=== PATIENT | female | born 1950 | race Caucasian/White ===

== ENCOUNTER 2018-08-26 08:43 | Inpatient (IN) | payer OTHER, SELFPAY ==
[2018-08-26] VITALS (8 sets, daily range): BP systolic 130–193; BP diastolic 69–82; PULSE 68–79; RESP 16–20; TEMP 36.4–36.9; O2SAT 94–99; BMI 51.5; BMI 44.9; BMI 45.0
--- NOTE | 2018-08-26 08:58 | RAD_ITS ---
STUDY: X-RAY - LEFT KNEE REASON FOR EXAM: Female, 68 years old. Pain following a fall. TECHNIQUE: 2 view(s) of the knee. COMPARISON: None. FINDINGS: Normal visualized distal femur. Normal visualized proximal tibia and fibula. Normal proximal tibiofibular articulation. Normal medial femorotibial compartment. Normal lateral femorotibial compartment. Normal patellofemoral articulation. The soft tissue structures are unremarkable. RAD/Knee 1 or 2 Views IMPRESSION: Normal x-ray examination of the knee. Electronically Signed: Albert Perkins MD at 10:40 EST Tel [phone], Service support ,
--- NOTE | 2018-08-26 08:58 | RAD_ITS ---
STUDY: X-RAY - LUMBAR SPINE REASON FOR EXAM: Female, 68 years old. Pain following a fall. TECHNIQUE: 3 view(s) of the lumbar spine were obtained. COMPARISON: None FINDINGS: Normal lumbar lordosis. There is no substantial scoliosis. There is a normal alignment of the vertebrae. There is multilevel endplate spondylosis of the lumbar vertebrae. There is multi-level degenerative disc disease with multi-level disc space narrowing. Facet joint osteoarthritis. There is atherosclerotic calcification of the abdominal aorta without a demonstrated aneurysm. Surgical clips are seen in the right upper quadrant most likely secondary to prior cholecystectomy. RAD/Lumbar Spine 2 or 3 Views IMPRESSION: Degenerative changes of the spine, as detailed above. Electronically Signed: Albert Perkins MD at 10:43 EST Tel [phone], Service support ,
--- NOTE | 2018-08-26 08:58 | RAD_ITS ---
STUDY: X-RAY - PELVIS REASON FOR EXAM: Female, 68 years old. Pain following a fall. TECHNIQUE: One view of the pelvis was obtained. COMPARISON: None. FINDINGS: There is a non-specific bowel gas pattern. Normal visualized soft tissue structures. Normal bilateral iliac wings, sacroiliac joints and visualized sacrum. Normal visualized bilateral superior and inferior pubic rami. There are degenerative changes of the pubic symphysis with articular narrowing and sclerosis. Normal ischial tuberosities. Normal visualized right femoral head. Normal right acetabulum. There is mild articular joint space narrowing of the right hip. Normal visualized left femoral head. Normal left acetabulum. There is mild articular joint space narrowing of the left hip. RAD/Pelvis 1 or 2 Views IMPRESSION: Degenerative changes of both hips. No acute fracture is seen. Electronically Signed: Albert Perkins MD at 10:45 EST Tel [phone], Service support ,
--- NOTE | 2018-08-26 08:58 | RAD_ITS ---
STUDY: X-RAY - LEFT ANKLE REASON FOR EXAM: Female, 68 years old. Pain following a fall. TECHNIQUE: 3 view(s) of the ankle. COMPARISON: None. FINDINGS: Nondisplaced fracture of the distal fibula. Normal medial and lateral malleoli. Normal tibiotalar articulation and ankle mortise. Calcaneal spurs. The visualized subtalar, talonavicular, calcaneocuboid and tarsal articulations are normal. There are atherosclerotic calcifications. Soft tissue swelling. RAD/Ankle min 3 Views IMPRESSION: Nondisplaced oblique fracture of the distal fibula. Soft tissue swelling and vascular calcification. Electronically Signed: Albert Perkins MD at 10:37 EST Tel [phone], Service support ,
[2018-08-26] MEDS: Ondansetron 4 MG/2 ML Vial IV (09:45)
[2018-08-26] MEDS: fentaNYL 100 MCG/2 ML Ampul 50 MCG IV ×2 (09:45→12:25)
--- NOTE | 2018-08-26 10:22 | RAD_ITS ---
STUDY: X-RAY - RIGHT KNEE REASON FOR EXAM: Female, 68 years old. Pain following a fall. TECHNIQUE: 3 view(s) of the knee. COMPARISON: None. FINDINGS: Normal visualized distal femur. Normal visualized proximal tibia and fibula. Normal proximal tibiofibular articulation. There is mild degenerative arthrosis of the medial femorotibial compartment. Normal lateral femorotibial compartment. Normal patellofemoral articulation. Small joint effusion. RAD/Knee 1 or 2 Views IMPRESSION: Degenerative arthrosis. Small joint effusion. Electronically Signed: Albert Perkins MD at 10:43 EST Tel [phone], Service support ,
--- NOTE | 2018-08-26 10:23 | RAD_ITS ---
STUDY: X-RAY - RIGHT ANKLE REASON FOR EXAM: Female, 68 years old. History of fall. TECHNIQUE: 3 view(s) of the ankle. COMPARISON: None. FINDINGS: Normal visualized distal tibia and fibula. Normal medial and lateral malleoli. Normal tibiotalar articulation and ankle mortise. A spur is seen at the insertion of the Achilles tendon. The visualized subtalar, talonavicular, calcaneocuboid and tarsal articulations are normal. Vascular calcification. RAD/Ankle min 3 Views IMPRESSION: Plantar spurs. No acute abnormality is seen. Electronically Signed: Albert Perkins MD at 10:44 EST Tel [phone], Service support ,
--- NOTE | 2018-08-26 12:33 | ED.VISSUMM ---
- ER Visit Summary Date of Service: 08/26/18 Chief Complaint: Fall History of Present Illness: The patient is a 68 F who fell earlier today. She slipped on ice. She landed on her backside. She said she did not hit her head or neck and denies any head or neck pain. She did not lose consciousness. She complains of buttock pain and bilateral leg pain especially in the left ankle and right knee. Patient does take aspirin. Denies weakness or numbness. Denies loss of bowel or bladder. Physical Examination: Blood pressure 192/79. Otherwise vitals normal. Afebrile. Patient is alert and oriented. Head is atraumatic and HEENT exam is unremarkable. Neck is nontender. Heart regular. Lungs clear. Abdomen soft and nontender. Back nontender. Bilateral legs tender to palpation diffusely. Patient has some abrasions to her left dorsal foot. Neurovascular intact in her legs. Test Results: X-rays of her lumbar spine, pelvis, bilateral knees, and bilateral ankles were unremarkable except for degenerative changes and a right knee mild effusion in the left ankle distal fibula fracture. Emergency Department Course and Treatment: Patient was treated with Zofran and pain medication. She required a repeat dose of fentanyl. X-rays showed a left fibula fracture. She was placed in a Ortho-Glass posterior leg splint by me. She tolerated this well. She is neurovascular intact distally afterwards. She attempted to ambulate using a walker and was unsuccessful. Her family voiced concern that she would not do well using a walker at her home based on the way out there. Patient will need admission. She was discussed with the hospitalist who will admit here. I also notify Dr. Ma who will see her in consultation. Treatment Plan: As above Disposition: Admission Impression: 1. Left distal fibula fracture 2. Unable to ambulate due to bilateral knee pain This note was generated with [employer] dictation software. It may contain incorrect words, spelling, and punctuation that were not noted in review of the chart prior to signing ED Disposition - Plan for ED Patient: Chief Complaint: Lower Extremity Injury Referrals: [facility] Doctor,Out of [Primary Care Provider] -
--- NOTE | 2018-08-26 13:01 | NURSING ---
[facility] CALLED AND LEFT MESSAGE ON TRANSFER LINE.
--- NOTE | 2018-08-26 13:10 | NURSING ---
MED SURG LT ANKLE FX AFTER FALL NIKO
--- NOTE | 2018-08-26 13:29 | PCM.HP.STD ---
Problem List (1) Hypertension Status: Chronic (2) Diabetes mellitus type 2 in obese Status: Chronic (3) Fall Status: Acute (4) Fracture of fibula, distal, left, closed Status: Acute (5) Dyslipidemia Status: Chronic (6) Chronic stable Asthma Status: Chronic History of Present Illness Date of Admission: 08/26/18 Chief Complaint: Fall and fracture of left ankle The patient is a 68 year old F with multiple comorbidities as mentioned above was brought into ED after she fell while walking on the ice. She walks on cane, slipped and landed on buttocks with knees flexed. Her feet were trapped under buttock. Patient denies hitting her head, neck and no loss of consciousness. In ED, multiple x-rays were done shows fracture of distal left fibula. Distribution Transformer Assembler Dr. Ma is consulted [] Past Medical History Past Medical History (Chronic Problems): Chronic Problems Hypertension (Chronic) Diabetes mellitus type 2 in obese (Chronic) Dyslipidemia (Chronic) Chronic stable Asthma (Chronic) Allergies No Known Allergies Allergy (Verified 08/26/18 08:44) Home Medications: Ambulatory Orders Medication Instructions Recorded Amlodipine [Norvasc] 5 mg PO DAILY 12/19/13 Aspirin 0.5 tab PO DAILY@0800 12/19/13 Lamotrigine [Lamictal] 300 mg PO BID 12/19/13 Multivitamins,Therapeutic 1 tablet PO DAILY 12/19/13 [Multivitamin] Omeprazole [Prilosec] 20 mg PO BID 12/19/13 Simvastatin [Zocor] 40 mg PO QHS 12/19/13 Topiramate [Topamax] 50 mg PO BID 12/19/13 Albuterol Aerosols [Ventolin 2.5 mg INHALATION Q4H PRN PRN 05/09/14 Aerosols] Glucosam/Kiran-Msm1/C/Cricket/Bosw 1 each PO BID 05/09/14 [Osteo Bi-Flex Caplet] Insulin NPH Human [Humulin N Pen] 55 units SC QHS 05/09/14 Insulin NPH Human [Humulin N Pen] 65 units SC DAILY@0730 05/09/14 Insulin Regular, Human [Novolin R] 20 unit SC BID 05/09/14 predniSONE tablet 40 mg PO DAILY@0800 5 Days tablet 05/10/14 Hydrocodone Bitart/Apap 5-325 1 tablet PO Q4H PRN PRN #14 tablet 11/28/14 [[place] 5MG-325MG] Smoking Status: Never smoker - *Family History Paternal History Items: No pertinent history Review of Systems Constitutional: Denies: Chills, Fever, Weight Change HEENT: Denies: Head Aches, Sinus Congestion, Sinus Drainage Cardiovascular: Denies: Chest Pain, Palpitations Respiratory: Denies: Cough, Shortness of breath at rest, Sputum production Gastrointestinal: Denies: Abdominal Pain, Nausea, Vomiting Genitourinary: Denies: Dysuria Musculoskeletal: Reports: Foot Pain, Joint Pain, Joint stiffness, Joint Tenderness, Muscle pain Skin: Denies: Rash, Wounds Neurological: Reports: Balance problems, Incoordination, Numbness, - - Diabetic neuropathy. Denies: Focal weakness, Tingling Psychiatric: Denies: Anxiety, Depression, Homicidal Ideations, Suicidal Ideations Hematologic/ Lymphatic: Denies: Easy Bruising, Easy Bleeding VTE Information - Inpt Only VTE Present on Admission: No VTE Mechan Device Prophylaxis: None VTE Pharm Prophylaxis ordered?: Yes Patient Problems: Active and Suspected Problems Fall (Acute) Fracture of fibula, distal, left, closed (Acute) - Physical Exam General: Alert, Oriented x3, Cooperative HEENT: Atraumatic, PERRLA, EOMI, Normocephalic Neck: Supple, No JVD, Negative Carotid Bruits Lungs: Clear to auscultation, Normal air movement, No rhonchi, No wheeze, No rales Cardiovascular: Regular rate, Regular Rhythm, Normal S1, Normal S2, No murmurs Abdomen: Bowel Sounds Present, Soft, Non Tender, Non-Distended Extremities: Capillary Refill Less than 3 Seconds, Edema - Mild edema of ankle Skin: No rashes, No breakdown Musculoskeletal: Arthritic Changes, Tenderness - Tenderness present over left ankle and left lower leg. Muscle spasm in the right lower leg Neurological: Cranial nerves II-XII grossly intact Psych/Mental Status: Normal Affect, Appropriate Vital Signs Temp Pulse Resp BP Pulse Ox 97.5 F L 77 18 153/75 H 98 08/26/18 13:09 08/26/18 13:09 08/26/18 13:09 08/26/18 13:09 08/26/18 13:09 Oxygen Delivery Method Room Air Weight: 261 lb 14.546 oz Body Mass Index (BMI) 44.9 Finger Stick Blood Glucose 198 Assessment/Plan All Active Problems Fall (Acute) Fracture of fibula, distal, left, closed (Acute) The patient is a 68 year old F with multiple comorbidities as mentioned above was brought into ED after she fell while walking on the ice. She walks on cane, slipped and landed on buttocks with knees flexed. Her feet were trapped under buttock. Patient denies hitting her head, neck and no loss of consciousness. In ED, multiple x-rays were done shows fracture of distal left fibula. Distribution Transformer Assembler Dr. Ma is consulted [] 1. Fall with fracture of left distal fibula/lateral malleolus of ankle joint: The patient is being admitted on regular floor. Anti-inflammatory agent, ibuprofen and muscle relaxants ordered. Pain control, PT and OT. IV fluid normal saline for dehydration. Left lower leg below knee is under Nestor wrap bandage. Labs CBC, BMP and CK ordered 2. Diabetes mellitus type 2 with diabetic neuropathy: Patient said she had improvement in A1c recently with last A1c about 8 as an outpatient. Accu-Chek before meals and at bedtime cover with NovoLog sliding scale. 3. Hypertension: Blood pressure was very high in the ED, 193/69, heart rate 76. Twelve-lead EKG is ordered. Home medication continued. Amlodipine 10 mg 1 dose given blood pressure control 153/75. No previous echo. 4. Other comorbidities include dyslipidemia, morbid obesity, chronic stable asthma: Home medication reconciliation done. This note was generated with [employer] dictation software. Every effort was made to ensure accuracy, however computerized cocoa bean roaster helper mistakes may persist. Plan of management reviewed with the patient and she affirms understanding Clinical Impression(s) from Imaging Studies Ankle X-Ray 08/26/18 08:58 IMPRESSION: Nondisplaced oblique fracture of the distal fibula. Soft tissue swelling and vascular calcification. Knee X-Ray 08/26/18 08:58 IMPRESSION: Normal x-ray examination of the knee. Lumbar Spine X-Ray 08/26/18 08:58 IMPRESSION: Degenerative changes of the spine, as detailed above. Pelvis X-Ray 08/26/18 08:58 IMPRESSION: Degenerative changes of both hips. No acute fracture is seen. Knee X-Ray 08/26/18 10:22 IMPRESSION: Degenerative arthrosis. Small joint effusion. Ankle X-Ray 08/26/18 10:23 IMPRESSION: Plantar spurs. No acute abnormality is seen. Code Visit Inpatient E&M: 67466 Init Hosp L3
[2018-08-26] MEDS: Morphine 2 MG/ML Syringe IV ×3 (13:37→21:42)
[2018-08-26] MEDS: 0.9% Normal Saline 1,000 ML 75 ML IV (13:38)
--- NOTE | 2018-08-26 13:42 | EKG12_ITS ---
Test Reason : HTN Blood Pressure : / mmHG Vent. Rate : 077 BPM Atrial Rate : 077 BPM P-R Int : 208 ms QRS Dur : 124 ms QT Int : 456 ms P-R-T Axes : 027 -65 083 degrees QTc Int : 516 ms Normal sinus rhythm Left axis deviation Incomplete left bundle branch block Abnormal ECG Confirmed by BECCA ALEJANDRO, GEOVANNA ([id number]), pictures editor JOSE GOODMAN ([id number]) on 08/28/2018 4:14:48 PM Referred By: NIKO Confirmed By:GEOVANNA HUDSON MD
[2018-08-26 14:28] LABS: Absolute Lymphocyte Count 2.44 X10^3/ul (0.83-4.51); Absolute Neutrophil Count 6.1 X10^3/uL (2.0-7.7); Basophil# 0.08 X10^3/uL; Basophil% 0.8 % (0-1); Eosinophil# 0.43 X10^3/uL; Eosinophils% 4.5 % (0-5); Hematocrit 37.6 % (37-47); Hemoglobin 13.3 g/dl (12.0-15.0); Lymphocyte # 2.44 X10^3/ul (4.0); Lymphocyte % 25.4 % (19-41); Mean Corp Hgb Conc 35.4 g/gl (32-36); Mean Corpuscular Hgb 30.6 pg (27.0-32.0); Mean Corpuscular Volume 86.4 fL (81-99); Mean Platelet Vol. 10.7 fl (6.2-12.0); Monocyte% 6.2 % (0-10); Neutrophil # 6.05 X10^3/uL (2.7-7.7); Platelet Count 278 K/mm3 (150-450); RBC Distribution Width CV 12.2 % (11.6-14.6); RBC Distribution Width SD 37.7 fl (35.1-43.9); Red Blood Count 4.35 M/mm3 (4.2-5.4); White Blood Count 9.6 K/mm3 (4.4-11.0)
[2018-08-26 14:34] LABS: POSITIVE COUNT NO; POSITIVE DIFFERENTIAL NO; POSITIVE MORPHOLOGY NO
--- NOTE | 2018-08-26 14:49 | RAD_ITS ---
STUDY: X-RAY - RIGHT FOOT CLINICAL: Female, 68 years old. Midfoot and hindfoot pain. TECHNIQUE: 3 view(s) of the foot. COMPARISON: None. FINDINGS: No acute fracture or dislocation. Prominent calcaneal spur at the insertion of the Achilles tendon. Normal visualized subtalar, talonavicular, calcaneocuboid, tarsal and tarsometatarsal articulations. Normal metatarsi. There is degenerative arthrosis of the metatarsophalangeal joint of the hallux . Normal tibial and fibular sesamoid bones. Normal interphalangeal joint of the great toe. Normal phalanges of the great toe. Normal second through fifth metatarsophalangeal joints. Normal interphalangeal joints and phalanges of the lesser toes. There is dorsal soft tissue swelling. There is no demonstrated fracture. RAD/Foot min 3 Views IMPRESSION: Dorsal soft tissue swelling. No acute fracture or dislocation. Electronically Signed: Ubaldo Lopez MD at 23:49 EST , Service support ,
--- NOTE | 2018-08-26 14:50 | PCM.HP.STD ---
Problem List (1) Nondisplaced fracture of lateral malleolus of left fibula, initial encounter for closed fracture Status: Acute (2) Right foot pain Status: Acute (3) Laceration of right foot Status: Acute (4) Diabetes mellitus type 2 in obese Status: Suspected History of Present Illness Date of Admission: 08/26/18 Chief Complaint: right foot pain and left ankle fracture This 68-year-old female with multiple comorbidities sustained a fall on the ice. She relates she fell in both lower extremities. She is unable to bear weight without significant pain. She denies loss of consciousness. Her mechanism of injury was she fell straight back and her body weight compressed both lower extremities. Prior to her injury she denies claudication. She does have some rest paresthesias reported an ongoing right leg cramping at rest. Past Medical History Past Medical History (Chronic Problems): Chronic Problems Hypertension (Chronic) Dyslipidemia (Chronic) Chronic stable Asthma (Chronic) Allergies No Known Allergies Allergy (Verified 08/26/18 08:44) Home Medications: Ambulatory Orders Medication Instructions Recorded Amlodipine [Norvasc] 2.5 mg PO DAILY 12/19/13 Lamotrigine [Lamictal] 300 mg PO BID 12/19/13 Omeprazole [Prilosec] 20 mg PO BID 12/19/13 Simvastatin [Zocor] 40 mg PO QHS 12/19/13 Topiramate [Topamax] 50 mg PO BID 12/19/13 Albuterol Aerosols [Ventolin 2.5 mg INHALATION Q4H PRN PRN 05/09/14 Aerosols] Glucosam/Kiran-Msm1/C/Cricket/Bosw 1 each PO BID 05/09/14 [Osteo Bi-Flex Caplet] Insulin NPH Human [Humulin N Pen] 40 units SC QHS 05/09/14 Insulin NPH Human [Humulin N Pen] 60 units SC DAILY@0730 05/09/14 Insulin Regular, Human [Novolin R] 20 unit SC BIDAC 05/09/14 Hydrocodone Bitart/Apap 5-325 1 tablet PO Q4H PRN PRN #14 tablet 11/28/14 [[place] 5MG-325MG] Aspirin [Aspirin, Baby] 81 mg PO DAILY@0800 08/26/18 Budesonide/Formoterol 160/4.5 1 puff INHALATION BID 08/26/18 [Symbicort 160/4.5 Mcg Inhaler (SP)] Cetirizine HCl [Zyrtec] 10 mg PO DAILY 08/26/18 Ergocalciferol (Vitamin D2) 50,000 unit PO QMONTH 08/26/18 [Drisdol] Lisinopril 30 mg PO DAILY 08/26/18 Paroxetine HCl 30 mg PO DAILY 08/26/18 Phenobarbital 30 mg PO TID 08/26/18 Lives: Alone Smoking Status: Never smoker Tobacco Use: Non-smoker - *Family History Paternal History Items: No pertinent history Review of Systems Constitutional: Denies: Chills, Fever, Weakness Respiratory: Denies: Shortness of Breath Gastrointestinal: Denies: Nausea, Vomiting Musculoskeletal: Reports: Foot Pain, Joint Tenderness, Leg Pain Skin: Reports: Wounds - right foot from fall Neurological: Reports: Balance problems, Incoordination VTE Information - Inpt Only VTE Present on Admission: No VTE Mechan Device Prophylaxis: SCD's VTE Pharm Prophylaxis ordered?: Yes Patient Problems: Active and Suspected Problems Diabetes mellitus type 2 in obese (Suspected) Fall (Acute) Fracture of fibula, distal, left, closed (Acute) Nondisplaced fracture of lateral malleolus of left fibula, initial encounter for closed fracture (Acute) Right foot pain (Acute) Laceration of right foot (Acute) - Physical Exam General: Alert, Oriented x3, Cooperative, - - In distress HEENT: Atraumatic Extremities: No cyanosis, Capillary Refill Less than 3 Seconds, No Calf Tenderness - Negative Ariza signs bilateral, Diminished Peripheral Pulses, Edema Skin: Ulcer/ Wound - Abrasions to the dorsal medial right foot and ankle with out deep tissue exposure, necrosis, or infection., - - Posterior mold to left lower extremity remains clean and dry and intact Musculoskeletal: No Tenderness to Palpation of Joints or Extremities, Muscle Wasting, - - Rectus left ankle and pain on palpation to distal fibula and medial ankle gutter and anterior ankle joint noted. Pain on palpation to proximal fibula left lower extremity. Active range of motion digits to bilateral foot. Right lateral ankle ligaments and anterior joint line are painful to palpate. There is also pain on palpation to the proximal first intermetatarsal space. Compartments remain soft bilateral Neurological: - - Epicritic sensation intact to light touch bilateral foot Psych/Mental Status: Normal Affect, Appropriate, Anxious Vital Signs Temp Pulse Resp BP Pulse Ox 97.5 F L 77 18 153/75 H 98 08/26/18 13:09 08/26/18 13:09 08/26/18 13:09 08/26/18 13:09 08/26/18 13:09 Oxygen Delivery Method Room Air Weight: 118.8 kg Body Mass Index (BMI) 44.9 Finger Stick Blood Glucose 198 Laboratory Tests Past 24 Hrs 08/26/18 08/26/18 08/26/18 14:16 14:16 14:16 WBC 9.6 RBC 4.35 Hgb 13.3 Hct 37.6 MCV 86.4 MCH 30.6 MCHC 35.4 RDW 12.2 RDW Differential 37.7 Plt Count 278 MPV 10.7 Immature Gran % (Auto) 0.100 Neut % (Auto) 63.0 Lymph % (Auto) 25.4 Travis % (Auto) 6.2 Eos % (Auto) 4.5 Baso % (Auto) 0.8 Absolute Neuts (auto) 6.1 Absolute Lymphs (auto) 2.44 Total Counted Not Reportable Sodium Pending Potassium Pending Chloride Pending Carbon Dioxide Pending Anion Gap Pending BUN Pending Creatinine Pending Est GFR (MDRD) Af Amer Pending Est GFR (MDRD) Non-Af Pending BUN/Creatinine Ratio Pending Glucose Pending Calcium Pending Total Creatine Kinase Pending Assessment/Plan All Active Problems Fall (Acute) Fracture of fibula, distal, left, closed (Acute) Nondisplaced fracture of lateral malleolus of left fibula, initial encounter for closed fracture (Acute) Right foot pain (Acute) Laceration of right foot (Acute) Nondisplaced closed left spiral oblique fibular fracture Right foot pain Right foot laceration I reviewed and discussed her case. Her x-rays are reviewed demonstrating a spiral oblique distal fibula fracture left lower extremity. This appears to be well aligned and the ankle mortise also appears to be well aligned. A posterior well-padded splint was already applied and this was kept in place. A vitamin D screening test was ordered to see if she is deficient. We reviewed anticipated healing time of fractures and ways to optimize her healing process. She was advised to remain nonweightbearing to left lower extremity. I will follow-up with her for this condition in approximately 2 weeks in the outpatient setting. She also complains of severe right foot pain since her fall. Her right ankle x-rays were negative for acute fracture. I recommended a foot x-ray and this was ordered. Until this x-ray is reviewed I do recommend she remains nonweightbearing to the right lower extremity as well. To cover abrasion with xeroform and gauze dressing. She was reassured no infection was noted. Thank you for the consultation. Medical management, DVT prophylaxis and pain control per primary team is appreciated. I recommend retirement facility placement. Please not hesitate to call if you have any questions. Selam Bray DPM, [facility] [phone]
[2018-08-26 14:51] LABS: Anion Gap 9 (5-15); BUN 10 mg/dL (7-18); BUN/Creat Ratio 12.6 RATIO (10-20); Calcium,Total 8.4 mg/dL (8.5-10.1); Chloride 107 mmol/L (98-107); Creatinine, Serum 0.79 mg/dL (0.55-1.02); EST Glomerular Filtration Rate 77 mL/min (>60); Est Glom Filt Rate - Afr Amer 93 mL/min (>60); Glucose 206 mg/dL (74-106); Potassium 3.8 mmol/L (3.5-5.1); Sodium Level 139 mmol/L (136-145)
[2018-08-26 15:19] LABS: CPK Total, Creatine Kinase 44 U/L (26-192)
[2018-08-26] MEDS: Enoxaparin 40 MG/0.4 ML Syringe SC (15:21)
[2018-08-26] MEDS: oxyCODONE 5 MG Tablet PO ×2 (15:21→19:24)
[2018-08-26] MEDS: amLODIPine 10 MG Tablet PO (15:21)
[2018-08-26] MEDS: Ibuprofen 600 MG Tablet PO (15:21)
[2018-08-26 15:40] LABS: Vitamin D,25 Hydroxy 23.4 ng/mL (29.95-100.01)
[2018-08-26] MEDS: Insulin Lispro 100 UNIT/ML INSULN.PEN SQ ×2 (17:25→21:45)
[2018-08-26] MEDS: Insulin Lispro 100 UNIT/ML INSULN.PEN 20 UNIT SC (17:25)
[2018-08-26 17:40] LABS: Bedside Glucose 217 mg/dL (70-110)
[2018-08-26] MEDS: PARoxetine 10 MG Tablet 30 MG PO (21:41)
[2018-08-26] MEDS: 0.9% NaCl Peripheral Flush Adult/Peds IV (21:42)
[2018-08-26] MEDS: Atorvastatin Calcium 20 MG Tablet PO (21:42)
[2018-08-26] MEDS: Pantoprazole Sodium 20 MG Tablet PO (21:42)
[2018-08-26] MEDS: Senna/Docusate Sodium 1 Tablet 2 TABLET PO (21:42)
[2018-08-26] MEDS: lamoTRIgine 150 MG Tablet 300 MG PO (21:42)
[2018-08-26] MEDS: Topiramate 50 MG Tablet PO (21:42)
[2018-08-26] MEDS: Insulin NPH Human 100 UNITS/ML PEN 35 UNITS SC (21:43)
[2018-08-26 21:56] LABS: Bedside Glucose 167 mg/dL (70-110)
[2018-08-27] VITALS (7 sets, daily range): BP systolic 130–160; BP diastolic 64–72; PULSE 83–94; RESP 16–20; TEMP 36.8–37.2; O2SAT 93–97
[2018-08-27] MEDS: 0.9% Normal Saline 1,000 ML 75 ML IV ×2 (01:52→15:15)
[2018-08-27] MEDS: oxyCODONE 5 MG Tablet PO ×3 (01:52→22:12)
[2018-08-27] MEDS: Albuterol 2.5 MG/3 ML VIAL.NEB. INHALATION ×3 (06:43→18:46)
[2018-08-27] MEDS: Budesonide Respules 0.5 MG/2 ML AMPUL.NEB. INHALATION ×2 (06:43→18:47)
--- NOTE | 2018-08-27 08:40 | PCM.PROGNOTE ---
Patient Problems: Active and Suspected Problems (Last Updated 08/27/18 @ 07:00 by Selam Bray DPM) Diabetes mellitus type 2 in obese (Suspected) Fall (Acute) Fracture of fibula, distal, left, closed (Acute) Nondisplaced fracture of lateral malleolus of left fibula, initial encounter for closed fracture (Acute) Right foot pain (Acute) Laceration of right foot (Acute) Subjective: Patient was seen this morning, she relates left ankle/foot feels good, she relates right foot is painful, relates she has shooting pains. Otherwise no other complaints, was resting comfortably in bed, no complaints of fever, chills, nausea or vomiting. - Physical Exam General: Alert, Oriented x3, Cooperative, No apparent distress Extremities: Capillary Refill Less than 3 Seconds, No Calf Tenderness, Peripheral Pulses Normal, - - Left foot/ankle/leg with splint clean, dry and intact, no pain present at this time. Abrasion (superficial) medial dorsal right foot with no evidence of infection - healthy and viable in appearance, no cellulitis, no fluctuance, no crepitus, no drainage, no maloder. She relates to diffuse right foot pain, poorly localized c/w contusion. There is no visible abscess or evidence of hematoma or compartment syndrome right foot, she is able to move toes, foot, and ankle right foot although limited due to complaints of pain. Psych/Mental Status: Alert and oriented to time, place, person, mood and affect Vital Signs Temp Pulse Resp BP Pulse Ox 98.3 F 83 16 130/64 H 96 08/27/18 03:31 08/27/18 06:43 08/27/18 06:43 08/27/18 03:31 08/27/18 06:43 Oxygen Delivery Method Room Air Weight: 118.8 kg Body Mass Index (BMI) 44.9 Finger Stick Blood Glucose 198 Intake and Output for Last 24 Hours 08/25/18 08/26/18 08/27/18 23:59 23:59 23:59 Intake Total 965 / 965 1714 / 1714 Output Total 725 / 725 Balance 965 / 965 989 / 989 Laboratory Tests Past 24 Hrs 08/26/18 08/26/18 08/26/18 14:16 14:16 14:16 WBC 9.6 RBC 4.35 Hgb 13.3 Hct 37.6 MCV 86.4 MCH 30.6 MCHC 35.4 RDW 12.2 RDW Differential 37.7 Plt Count 278 MPV 10.7 Immature Gran % (Auto) 0.100 Neut % (Auto) 63.0 Lymph % (Auto) 25.4 [place] % (Auto) 6.2 Eos % (Auto) 4.5 Baso % (Auto) 0.8 Absolute Neuts (auto) 6.1 Absolute Lymphs (auto) 2.44 Total Counted Not Reportable Sodium 139 Potassium 3.8 Chloride 107 Carbon Dioxide 23.0 Anion Gap 9 BUN 10 Creatinine 0.79 Estim Creat Clear Calc 46.50 Est GFR (MDRD) Af Amer 93 Est GFR (MDRD) Non-Af 77 BUN/Creatinine Ratio 12.6 Glucose 206 H Calcium 8.4 L Total Creatine Kinase 44 Vitamin D 25-Hydroxy 08/26/18 14:16 WBC RBC Hgb Hct MCV MCH MCHC RDW RDW Differential Plt Count MPV Immature Gran % (Auto) Neut % (Auto) Lymph % (Auto) [place] % (Auto) Eos % (Auto) Baso % (Auto) Absolute Neuts (auto) Absolute Lymphs (auto) Total Counted Sodium Potassium Chloride Carbon Dioxide Anion Gap BUN Creatinine Estim Creat Clear Calc Est GFR (MDRD) Af Amer Est GFR (MDRD) Non-Af BUN/Creatinine Ratio Glucose Calcium Total Creatine Kinase Vitamin D 25-Hydroxy 23.4 L POC Glucose 08/26/18 08/26/18 21:31 17:21 POC Glucose 167 H 217 H Medical Necessity - Tobacco Use Smoking Status: Never smoker Tobacco Use: Non-smoker Assessment/Plan All Active Problems (Last Updated 08/27/18 @ 07:00 by Selam Bray DPM) Fall (Acute) Fracture of fibula, distal, left, closed (Acute) Nondisplaced fracture of lateral malleolus of left fibula, initial encounter for closed fracture (Acute) Right foot pain (Acute) Laceration of right foot (Acute) Nondisplaced closed left spiral oblique fibular fracture Contusion /Right foot pain Right foot abrasion Continue with splint immobilization and nonweightbearing left foot/ankle. Reviewed right foot and ankle xrays which do no show any fracture or dislocations, no acute osseous abnormality seen. Ok to proceed with protected weightbearing as tolerating in CAM Walker right foot. Keep bilateral feet elevated and heels offloaded. Low Vitamin D noted - 2000 units/day has been recommended to optimize bone healing. To cover abrasion right foot with xeroform and gauze dressing, change daily. Medical management, DVT prophylaxis and pain control per primary team is appreciated. prison facility placement is recommended. Please call if you have any questions.
[2018-08-27] MEDS: Insulin NPH Human 100 UNITS/ML PEN 60 UNITS SC (09:31)
[2018-08-27] MEDS: Insulin Lispro 100 UNIT/ML INSULN.PEN SQ ×3 (09:33→17:31)
[2018-08-27] MEDS: Aspirin 81 MG TAB.CHEW PO (09:34)
[2018-08-27] MEDS: Multivitamins,Therapeutic Tablet 1 TABLET PO (09:35)
[2018-08-27] MEDS: lamoTRIgine 150 MG Tablet 300 MG PO ×2 (09:36→22:10)
[2018-08-27] MEDS: Enoxaparin 40 MG/0.4 ML Syringe SC (09:36)
[2018-08-27] MEDS: Senna/Docusate Sodium 1 Tablet 2 TABLET PO ×2 (09:36→22:10)
[2018-08-27] MEDS: amLODIPine 10 MG Tablet PO (09:36)
[2018-08-27] MEDS: Lisinopril 10 MG Tablet 30 MG PO (09:37)
[2018-08-27] MEDS: Topiramate 50 MG Tablet PO ×2 (09:37→22:10)
[2018-08-27] MEDS: Pantoprazole Sodium 20 MG Tablet PO ×2 (09:37→22:10)
[2018-08-27] MEDS: Morphine 2 MG/ML Syringe IV (09:42)
[2018-08-27] MEDS: Insulin Lispro 100 UNIT/ML INSULN.PEN 20 UNIT SC ×2 (09:46→17:31)
[2018-08-27 10:06] LABS: Bedside Glucose 282 mg/dL (70-110)
[2018-08-27] MEDS: PARoxetine 10 MG Tablet 30 MG PO (10:20)
--- NOTE | 2018-08-27 11:20 | CASEMGMT ---
JUNIOR MORROW Face to Face with patient for initial transition planning/care coordination assessment. RN CRISTHIAN introduced self and role at [facility]. Patient lying in bed, alert and oriented. Patient willing to participate in assessment and is able to answer all questions appropriately. Care providers, pharmacy, and demographics verified. Patient wishes to discharge to son and [id number]'s home with HHC and possible wheelchair. Patient states she has no further needs or concerns at this time. CM to follow for discharge planning needs that may arise. PCP: Dr. Hairston at [facility] Preferred Pharmacy: [facility] [place]: [place] Prescription Benef[place] Living Will/HPOA: Per patient she has a living will that was completed at [facility] [place]: Son and daughter Living Arrangements: Patient lives alone in 1st floor apartment with 2 steps to enter apt. Patient states that she is independent at home. Transportation: Daughter DME/HHC: Patient states she has 3 canes but cannot find them. Patient states she has a shower chair. Patient has declined HHC in the past when [place] PCP has offered to setup. Patient states that she falls frequently. Patient will benefit from wheelchair and possible walker. PT/OT pending. Disposition Plan: Patient to discharge home with possible HHC, family support, and follow-up plans in place. Melida DE LA PAZ, RN, CM
[2018-08-27 12:00] LABS: Bedside Glucose 249 mg/dL (70-110)
--- NOTE | 2018-08-27 12:33 | CASEMGMT ---
JUNIOR MORROW NOTE: Call placed to Amie @ [facility]. She was notified pt admitted to [facility]. Clinicals faxed to [facility] @ [phone]. Helena DE LA PAZ RN CM
--- NOTE | 2018-08-27 12:42 | CASEMGMT ---
RN CRISTHIAN NOTE: Call placed to [facility]. Spoke with JUNIOR Jones for Dr Hairston, Pact Team 7. She was notified pt admitted to [facility] 08-26-18. Clinicals faxed to her @ [phone] . Helena DE LA PAZ RN CM
--- NOTE | 2018-08-27 13:10 | CASEMGMT ---
JUNIOR MORROW NOTE: Pt states she does not want to be transferred to [facility] even if they have a bed available. Reviewed [facility] Declination Form with patient and she was made aware that if a bed is available and she chooses not to transfer that she would be responsible for financial/medical cost with this hospitalization. Pt stated, I won't have to pay for it. I'll make a call to [facility] [place] and it'll be paid for. Pt signed VA transfer declination form. Form faxed to [facility]. Copy placed on chart and pt given original. Helena DE LA PAZ RN CM
--- NOTE | 2018-08-27 13:20 | CASEMGMT ---
Social Work Note SW placed a call to James Cummins ([phone] ext. [phone]) at [place]. Per James pt's social work nurse is V[facility] (ext. [phone]) and pt is 70% service connected and would qualify for contract placement at SNF. Per James, closest SNF is [facility]. JUNIOR CM updated. Melida Leo SOCIAL SERVICES ASSISTANT, NEWSPAPER CLIPPER
--- NOTE | 2018-08-27 14:12 | CASEMGMT ---
Addendum entered by Naty Rausch 08/27/18 15:08: Call placed to pt's son, Junior Hoang, who pt states she will be staying with on discharge. Junior states he is aware this is pt's wishes and is agreeable to this. He also states he is agreeable to [facility] in his home for therapy. Junior states his is an RN and that she will assist pt with medication mgmt and does not feel HHC nurse is needed. Junior made aware arrangements are being made for pt to get a W/C through the [facility] and for it to be delivered to his home and that it will may take up to 2 weeks to be delivered. Junior provided his home address: [address] [place] [address] [place] [address]. [facility] [place] and faxed to AHSAN Garcia, @ [facility] for [facility] services. Original Note: JUNIOR MORROW NOTE: To room to talk with pt about discharge planning. *Pt states she does not want to go to a SNF. She states she wants to go to her son's on discharge. Agreeable to [facility] and states she has no preference of HHC that is approved through [place]. *Pt will need W/C on d/c. Spoke with RNKaren, @ [facility]. She states in order for pt to receive a W/C through the [facility], that it would need to be prescribed by pt's [facility] doctor and delivered to pt's home. She states this will take about 2 weeks before it will arrive to her home. Pt made aware. Pt also made aware cost to rent a W/C with elevated leg rests is approx $96. She states she is agreeable to paying for this until the W/C from [facility] arrives. Helena DE LA PAZ RN, CM
--- NOTE | 2018-08-27 17:26 | PN_ITS ---
Patient Problems: Active and Suspected Problems (Last Updated 08/27/18 @ 07:00 by Selam Bray DPM) Diabetes mellitus type 2 in obese (Suspected) Fall (Acute) Fracture of fibula, distal, left, closed (Acute) Nondisplaced fracture of lateral malleolus of left fibula, initial encounter for closed fracture (Acute) Right foot pain (Acute) Laceration of right foot (Acute) Subjective: Patient still complained of pain in the left leg and also on the right leg. No obvious fracture found in the right foot x-ray. Vitals/I&O's: Vital Signs Temp Pulse Resp BP Pulse Ox 98.9 F 88 16 154/67 H 97 08/27/18 15:31 08/27/18 15:31 08/27/18 15:31 08/27/18 15:31 08/27/18 15:31 Oxygen Delivery Method Room Air Weight: 261 lb 14.546 oz Body Mass Index (BMI) 44.9 Finger Stick Blood Glucose 198 Intake and Output for Last 24 Hours 08/25/18 08/26/18 08/27/18 23:59 23:59 23:59 Intake Total 965 / 965 1714 / 1714 Output Total 725 / 725 Balance 965 / 965 989 / 989 General: Alert, Oriented x3, Cooperative HEENT: Atraumatic, PERRLA, EOMI, Normocephalic Neck: Supple, No JVD, Negative Carotid Bruits Lungs: Clear to auscultation, Normal air movement, No rhonchi, No wheeze, No rales Cardiovascular: Regular rate, Regular Rhythm, Normal S1, Normal S2, No murmurs Abdomen: Bowel Sounds Present, Soft, Non Tender, Non-Distended Extremities: No edema, Capillary Refill Less than 3 Seconds Skin: No rashes, No breakdown Musculoskeletal: Arthritic Changes, Tenderness - Left leg and foot. Nestor wrap bandage on the left below-knee. Right leg has tenderness no muscle spasticity. Neurological: Cranial nerves II-XII grossly intact, Deep Tendon Reflexes 2+/4 and Symmetrical, Neuro grossly intact Psych/Mental Status: Normal Affect, Appropriate Laboratory Results 08/26/18 17:21: POC Glucose 217 H 08/26/18 21:31: POC Glucose 167 H 08/27/18 09:26: POC Glucose 282 H 08/27/18 11:51: POC Glucose 249 H Current Medications Acetaminophen (Tylenol) 650 mg PO Q6H PRN PRN PRN Reason: Mild Pain (scale 0-3)/T>100.7 Al Hydroxide/Mg Hydroxide (Mylanta Ii) 30 ml PO Q6H PRN PRN PRN Reason: Gastric burning Albuterol Sulfate (Ventolin Aerosols) 2.5 mg INHALATION Q4H PRN PRN PRN Reason: WHEEZING Albuterol Sulfate (Ventolin Aerosols) 2.5 mg INHALATION Q6HWA.RT [facility] Last Admin: 08/27/18 12:55 Dose: 2.5 mg Amlodipine Besylate (Norvasc) 10 mg PO DAILY [facility] Last Admin: 08/27/18 09:36 Dose: 10 mg Aspirin (Aspirin, Baby) 81 mg PO DAILY@0800 [facility] Last Admin: 08/27/18 09:34 Dose: 81 mg Atorvastatin Calcium (Lipitor) 20 mg PO QHS [facility] Last Admin: 08/26/18 21:42 Dose: 20 mg Budesonide (Pulmicort Aerosol) 0.5 mg INHALATION Q12H.RT [facility] Last Admin: 08/27/18 06:43 Dose: 0.5 mg Cyclobenzaprine HCl (Flexeril) 10 mg PO TID [facility] Last Admin: 08/27/18 15:14 Dose: 10 mg Dextrose (D50w Syringe) 0 gm IV X1 PRN; Protocol PRN Reason: Hypoglycemia Enoxaparin Sodium (Lovenox) 40 mg SC DAILY@1000 [facility] Last Admin: 08/27/18 09:36 Dose: 40 mg Ergocalciferol (Vitamin D) 50,000 unit PO QMONTH [facility] Last Admin: 08/26/18 18:21 Dose: 50,000 unit Glucagon () 1 mg IM .X1 PRN PRN Reason: Hypoglycemia Hydralazine HCl (Apresoline Iv) 10 mg IV Q4H PRN PRN PRN Reason: SBP>180 mmhg Sodium Chloride () 1,000 mls @ 75 mls/hr IV .[id number] [facility] Last Admin: 08/27/18 15:15 Dose: 75 mls/hr Ibuprofen (Motrin) 600 mg PO Q8H PRN PRN PRN Reason: MILD PAIN (1-3/10) Last Admin: 08/26/18 15:21 Dose: 600 mg Insulin Human Lispro (Humalog Kwikpen (Bkc)) 0 unit SQ ACHS [facility]; Protocol Last Admin: 08/27/18 11:53 Dose: 4 unit Insulin Human Lispro ([facility]wik[facility] (Bkc)) [facility] Admin: 08/27/18 09:46 Dose: 20 unit Insulin Human NPH (Humulin N (Bkc)) 35 units SC QHS [facility] Last Admin: 08/26/18 21:43 Dose: 35 u Insulin Human NPH (Humulin N (Bkc)) 60 units SC DAILY@0730 [facility] Last Admin: 08/27/18 09:31 Dose: 60 u Lamotrigine (Lamictal) 300 mg PO BID [facility] Last Admin: 08/27/18 09:36 Dose: 300 mg Lisinopril (Zestril) 30 mg PO DAILY [facility] Last Admin: 08/27/18 09:37 Dose: 30 mg Magnesium Hydroxide (Milk Of Magnesia) 30 ml PO DAILY PRN PRN PRN Reason: Constipation Morphine Sulfate () 2 mg IV Q3H PRN PRN PRN Reason: Severe Pain (pain scale 6-10) Last Admin: 08/27/18 09:42 Dose: 2 mg [facility]it[facility] ([facility]itamin) [facility] Last Admin: 08/27/18 09:35 Dose: 1 tablet Oxycodone HCl (Oxyir) 5 mg PO Q4H PRN PRN PRN Reason: Moderate Pain (pain scale 4-5) Last Admin: 08/27/18 01:52 Dose: 5 mg Pantoprazole Sodium (Protonix) 20 mg PO BID [facility] Last Admin: 08/27/18 09:37 Dose: 20 mg Paroxetine HCl (Paxil) 30 mg PO DAILY [facility] Last Admin: 08/27/18 10:20 Dose: 30 mg Senna/Docusate Sodium (Senokot-S, Fani-Colace) 2 tablet PO BID [facility] Last Admin: 08/27/18 09:36 Dose: 2 tablet Sodium Chloride () 5 - 15 ml IV UD PRN PRN Reason: SALINE FLUSH Last Admin: 08/26/18 21:42 Dose: 10 ml Topiramate (Topamax) 50 mg PO BID [facility] Last Admin: 08/27/18 09:37 Dose: 50 mg Zolpidem Tartrate (Ambien (Generic)) 5 mg PO QHS PRN PRN PRN Reason: INSOMNIA Medical Necessity - Tobacco Use Smoking Status: Never smoker Tobacco Use: Non-smoker Assessment/Plan All Active Problems (Last Updated 08/27/18 @ 07:00 by Selam Bray DPM) Fall (Acute) Fracture of fibula, distal, left, closed (Acute) Nondisplaced fracture of lateral malleolus of left fibula, initial encounter for closed fracture (Acute) Right foot pain (Acute) Laceration of right foot (Acute) The patient is a 68 year old F with multiple comorbidities as mentioned above was brought into ED after she fell while walking on the ice. She walks on cane, slipped and landed on buttocks with knees flexed. Her feet were trapped under buttock. Patient denies hitting her head, neck and no loss of consciousness. In ED, multiple x-rays were done shows fracture of distal left fibula. Loan And Credit Manager Dr. Ma is consulted [] 1. Fall with fracture of left distal fibula/lateral malleolus of ankle joint: The patient is being admitted on regular floor. Anti-inflammatory agent, ibuprofen and muscle relaxants ordered. Pain control, PT and OT. IV fluid normal saline for dehydration. Left lower leg below knee is under Nestor wrap bandage. Labs CBC, BMP and CK ordered 2. Diabetes mellitus type 2 with diabetic neuropathy: Patient said she had improvement in A1c recently with last A1c about 8 as an outpatient. Accu-Chek before meals and at bedtime cover with NovoLog sliding scale. 3. Hypertension: Blood pressure was very high in the ED, 193/69, heart rate 76. Twelve-lead EKG normal sinus rhythm at 77 bpm, QRS 124 ms, LAD with LVH. Home medication continued. Amlodipine 10 mg 1 dose given blood pressure control 153/75. Blood pressure is controlled. No previous echo. The echo recommended as an outpatient. 4. Other comorbidities include dyslipidemia, morbid obesity, chronic stable asthma: Home medication reconciliation done. This note was generated with PurposeEnergyation software. Every effort was made to ensure accuracy, however computerized jewellery designer mistakes may persist. Plan of management reviewed with the patient and she affirms understanding Laboratory Results 08/26/18 17:21: POC Glucose 217 H 08/26/18 21:31: POC Glucose 167 H 08/27/18 09:26: POC Glucose 282 H 08/27/18 11:51: POC Glucose 249 H Clinical Impression(s) from Imaging Studies Ankle X-Ray 08/26/18 08:58 IMPRESSION: Nondisplaced oblique fracture of the distal fibula. Soft tissue swelling and vascular calcification. Knee X-Ray 08/26/18 08:58 IMPRESSION: Normal x-ray examination of the knee. Lumbar Spine X-Ray 08/26/18 08:58 IMPRESSION: Degenerative changes of the spine, as detailed above. Pelvis X-Ray 08/26/18 08:58 IMPRESSION: Degenerative changes of both hips. No acute fracture is seen. Knee X-Ray 08/26/18 10:22 IMPRESSION: Degenerative arthrosis. Small joint effusion. Ankle X-Ray 08/26/18 10:23 IMPRESSION: Plantar spurs. No acute abnormality is seen. Active Medications Acetaminophen (Tylenol) 650 mg PO Q6H PRN PRN PRN Reason: Mild Pain (scale 0-3)/T>100.7 Al Hydroxide/Mg Hydroxide (Mylanta Ii) 30 ml PO Q6H PRN PRN PRN Reason: Gastric burning Albuterol Sulfate (Ventolin Aerosols) 2.5 mg INHALATION Q4H PRN PRN PRN Reason: WHEEZING Albuterol Sulfate (Ventolin Aerosols) 2.5 mg INHALATION Q6HWA.RT [facility] Last Admin: 08/27/18 12:55 Dose: 2.5 mg Amlodipine Besylate (Norvasc) 10 mg PO DAILY [facility] Last Admin: 08/27/18 09:36 Dose: 10 mg Aspirin (Aspirin, Baby) 81 mg PO DAILY@0800 [facility] Last Admin: 08/27/18 09:34 Dose: 81 mg Atorvastatin Calcium (Lipitor) 20 mg PO QHS [facility] Last Admin: 08/26/18 21:42 Dose: 20 mg Budesonide (Pulmicort Aerosol) 0.5 mg INHALATION Q12H.RT [facility] Last Admin: 08/27/18 06:43 Dose: 0.5 mg Cyclobenzaprine HCl (Flexeril) 10 mg PO TID [facility] Last Admin: 08/27/18 15:14 Dose: 10 mg Dextrose (D50w Syringe) 0 gm IV X1 PRN; Protocol PRN Reason: Hypoglycemia Enoxaparin Sodium (Lovenox) 40 mg SC DAILY@1000 [facility] Last Admin: 08/27/18 09:36 Dose: 40 mg Ergocalciferol (Vitamin D) 50,000 unit PO QMONTH [facility] Last Admin: 08/26/18 18:21 Dose: 50,000 unit Glucagon () 1 mg IM .X1 PRN PRN Reason: Hypoglycemia Hydralazine HCl (Apresoline Iv) 10 mg IV Q4H PRN PRN PRN Reason: SBP>180 mmhg Sodium Chloride () 1,000 mls @ 75 mls/hr IV .[id number] [facility] Last Admin: 08/27/18 15:15 Dose: 75 mls/hr Ibuprofen (Motrin) 600 mg PO Q8H PRN PRN PRN Reason: MILD PAIN (1-10/19) Last Admin: 08/26/18 15:21 Dose: 600 mg Insulin Human Lispro (Humalog Kwikpen (Bkc)) 0 unit SQ [facility]; Protocol Last Admin: 08/27/18 11:53 Dose: 4 unit Insulin Human Lispro ([facility]alog Kwikpen (Bkc)) [facility] Last Admin: 08/27/18 09:46 Dose: 20 unit Insulin Human NPH (Humulin N (Bkc)) 35 units SC QHS [facility] Last Admin: 08/26/18 21:43 Dose: 35 u Insulin Human NPH (Humulin N (Bkc)) 60 units SC DAILY@0730 [facility] Last Admin: 08/27/18 09:31 Dose: 60 u Lamotrigine (Lamictal) 300 mg PO BID [facility] Last Admin: 08/27/18 09:36 Dose: 300 mg Lisinopril (Zestril) 30 mg PO DAILY [facility] Last Admin: 08/27/18 09:37 Dose: 30 mg Magnesium Hydroxide (Milk Of Magnesia) 30 ml PO DAILY PRN PRN PRN Reason: Constipation Morphine Sulfate () 2 mg IV Q3H PRN PRN PRN Reason: Severe Pain (pain scale 6-10) Last Admin: 08/27/18 09:42 Dose: 2 mg Multivitamins ([facility]ivitamin) [facility] Last Admin: 08/27/18 09:35 Dose: 1 tablet Oxycodone HCl (Oxyir) 5 mg PO Q4H PRN PRN PRN Reason: Moderate Pain (pain scale 4-5) Last Admin: 08/27/18 01:52 Dose: 5 mg Pantoprazole Sodium (Protonix) 20 mg PO BID [facility] Last Admin: 08/27/18 09:37 Dose: 20 mg Paroxetine HCl (Paxil) 30 mg PO DAILY [facility] Last Admin: 08/27/18 10:20 Dose: 30 mg Senna/Docusate Sodium (Senokot-S, Fani-Colace) 2 tablet PO BID [facility] Last Admin: 08/27/18 09:36 Dose: 2 tablet Sodium Chloride () 5 - 15 ml IV UD PRN PRN Reason: SALINE FLUSH Last Admin: 08/26/18 21:42 Dose: 10 ml Topiramate (Topamax) 50 mg PO BID [facility] Last Admin: 08/27/18 09:37 Dose: 50 mg Zolpidem Tartrate (Ambien (Generic)) 5 mg PO QHS PRN PRN PRN Reason: INSOMNIA Code Visit Inpatient E&M: 35061 Subs Hosp L2
[2018-08-27 17:35] LABS: Bedside Glucose 219 mg/dL (70-110)
[2018-08-27] MEDS: Acetaminophen 325 MG Tablet 650 MG PO (17:36)
[2018-08-27] MEDS: Insulin NPH Human 100 UNITS/ML PEN 35 UNITS SC (22:09)
[2018-08-27] MEDS: Atorvastatin Calcium 20 MG Tablet PO (22:10)
[2018-08-27 22:50] LABS: Bedside Glucose 128 mg/dL (70-110)
[2018-08-28] VITALS (7 sets, daily range): BP systolic 154–194; BP diastolic 71–87; PULSE 84–94; RESP 16–20; TEMP 36.8–36.9; O2SAT 94–96
[2018-08-28] MEDS: oxyCODONE 5 MG Tablet PO ×2 (04:53→21:47)
[2018-08-28] MEDS: amLODIPine 10 MG Tablet PO (04:55)
[2018-08-28] MEDS: Albuterol 2.5 MG/3 ML VIAL.NEB. INHALATION ×3 (07:28→18:50)
[2018-08-28] MEDS: Budesonide Respules 0.5 MG/2 ML AMPUL.NEB. INHALATION ×2 (07:28→18:50)
[2018-08-28] MEDS: Aspirin 81 MG TAB.CHEW PO (07:34)
[2018-08-28] MEDS: Multivitamins,Therapeutic Tablet 1 TABLET PO (07:34)
[2018-08-28] MEDS: Insulin NPH Human 100 UNITS/ML PEN 60 UNITS SC (07:34)
[2018-08-28] MEDS: Insulin Lispro 100 UNIT/ML INSULN.PEN 20 UNIT SC ×2 (07:35→16:51)
[2018-08-28] MEDS: Insulin Lispro 100 UNIT/ML INSULN.PEN SQ ×3 (07:35→21:48)
[2018-08-28] MEDS: Topiramate 50 MG Tablet PO ×2 (07:40→21:14)
[2018-08-28] MEDS: Senna/Docusate Sodium 1 Tablet 2 TABLET PO ×2 (07:40→21:14)
[2018-08-28] MEDS: PARoxetine 10 MG Tablet 30 MG PO (07:41)
[2018-08-28] MEDS: Enoxaparin 40 MG/0.4 ML Syringe SC (07:41)
[2018-08-28] MEDS: Pantoprazole Sodium 20 MG Tablet PO ×2 (07:42→21:14)
[2018-08-28] MEDS: lamoTRIgine 150 MG Tablet 300 MG PO ×2 (07:42→21:14)
[2018-08-28] MEDS: Lisinopril 40 MG Tablet PO (07:46)
[2018-08-28] MEDS: Ibuprofen 600 MG Tablet PO (07:46)
[2018-08-28 07:55] LABS: Bedside Glucose 186 mg/dL (70-110)
--- NOTE | 2018-08-28 09:45 | DCINST_ITS ---
- Discharge Diagnoses Current Active Problems: Current Active and Chronic Problems (Last Updated 08/27/18 @ 07:00 by Selam Bray DPM) Hypertension (Chronic) Fall (Acute) Fracture of fibula, distal, left, closed (Acute) Dyslipidemia (Chronic) Chronic stable Asthma (Chronic) Nondisplaced fracture of lateral malleolus of left fibula, initial encounter for closed fracture (Acute) Right foot pain (Acute) Laceration of right foot (Acute) You will use the following diet at home:: Calorie/Carbohydrate Controlled (spe cify 1200, 1400, etc) - 1800 ADA diet Your food should be the consistency of: Regular Discharge Activity: May Not Drive Call your doctor if you observe: Fever of 101 or Higher, Numbness or Tingling, Shortness of breath, Fainting spells, Chest pain, Increased palpitations (irregular heartbeat), Uncontrolled pain Allergies/Adverse Reactions: Allergies ciprofloxacin Allergy (Verified 08/26/18 16:16) Unknown hydrochlorothiazide Allergy (Verified 08/26/18 16:16) Unknown pentazocine [From [place]] Allergy (Verified 08/26/18 16:16) Unknown Medications to take at Discharge Lamotrigine [Lamictal] 300 mg PO BID 12/19/13 Omeprazole [Prilosec] 20 mg PO BID 12/19/13 Simvastatin [Zocor] 40 mg PO QHS 12/19/13 Topiramate [Topamax] 50 mg PO BID 12/19/13 Albuterol Aerosols [Ventolin Aerosols] 2.5 mg INHALATION Q4H PRN PRN 05/09/14 Glucosam/Kiran-Msm1/C/Cricket/Bosw [Osteo Bi-Flex Caplet] 1 each PO BID 05/09/14 Insulin NPH Human [Humulin N Pen] 60 units SC DAILY@0730 05/09/14 Insulin Regular, Human [Novolin R] 20 unit SC BIDAC 05/09/14 Hydrocodone Bitart/Apap 5-325 [[place] 5/325] 1 tablet PO Q4H PRN PRN #14 tablet 11/28/14 Aspirin [Aspirin, Baby] 81 mg PO DAILY@0800 08/26/18 Budesonide/Formoterol 160/4.5 [Symbicort 160/4.5 Mcg Inhaler (SP)] 1 puff INHALATION BID 08/26/18 Ergocalciferol (Vitamin D2) [Drisdol] 50,000 unit PO QMONTH 08/26/18 Paroxetine HCl 30 mg PO DAILY 08/26/18 Phenobarbital 30 mg PO TID 08/26/18 Amlodipine [Norvasc] 10 mg PO DAILY #0 08/28/18 Cetirizine HCl [Zyrtec] 10 mg PO DAILY PRN PRN #0 08/28/18 Insulin NPH Human [Humulin N Pen] 35 units SC QHS #0 08/28/18 Lisinopril 40 mg PO DAILY #0 08/28/18 Tizanidine HCl [Zanaflex] 2 mg PO Q8H PRN PRN #20 tablet 08/28/18 The following prescriptions were given: Tizanidine HCl [Zanaflex] 2 mg PO Q8H PRN PRN #20 tablet PRN Reason: muscle pain/spasm Primary Care Physician: [facility] Doctor,Out of [NON-STAFF] - Test Results: Test results from this visit will be discussed in further detail at your follow- up appointment, if applicable.
--- NOTE | 2018-08-28 09:52 | CASEMGMT ---
Addendum entered by Naty Rausch 08/28/18 11:55: After pt informed JUNIOR MORROW that she did not want to go to [facility], pt was also provided with list of other SNF's that are located @ a further distance than [facility] that she can go to through the [place]. Pt stated, I don't want to go to any facility. I want to go to my son's and JOAQUIN's house. Original Note: Addendum entered by Naty Rausch 08/28/18 11:45: PT/OT evals have been completed. They stated they were unable to transfer pt with 2 assist to chair. SNF recommended. Spoke with pt who states she is not agreeable to going to [facility] and she wishes to discharge to her son and JOAQUIN home. Pt states her JOAQUIN, who is an RN, is planning on taking care of her. Discussed concerns with pt d/t she is bedbound at this time and unable to be transferred even with 2 assist. Pt states, my son is a big juliette and his , Madhuri, is a nurse and they'll be able to transfer me. Pt then stated, If not, I will just stay in bed. I have a big T.V. Discussed concerns of complications of staying in bed all the time, such as risk for pressure sores and pneumonia. Pt stated, Madhuri will take care of all of that. We just discussed all of that. She'll even use a bedpan and is willing to help me day and night. Pt gave permission for JUNIOR MORROW to discuss her care and discharge planning with Madhuri. Call placed to Madhuri NUÑEZ. No answer. Message left for her to return call to this RN CRISTHIAN. Phone number provided. Original Note: Addendum entered by Naty Rausch 08/28/18 10:41: Per Dr Boyd, pt is now agreeable to going to a SNF. JUNIOR MORROW to room to talk with pt. Pt states she wants to go to the shelter on [address]. May aware, that per BRANDI from [place], the closest SNF that pt can go to through the [place], is @ [facility] in [place]. When asked pt if she would be agreeable to going to [facility], pt stated I'll have to talk to my kids first. Pt also inquiring about getting a hospital bed through the [place]. Informed her this JUNIOR MORROW will contact [place] nurse to inquire about this. Call placed to JUNIOR Jones @ [facility] and message left with her re: pt inquiring about a hospital bed. Original Note: JUNIOR MORROW NOTE: Call placed to JUNIOR Jones, for Dr Hairston @ [facility]. *She was made aware of pt wanting to discharge home to her son's home, [place]ang, and that she is agreeable to [facility] for PT/OT and that son, Junior, is agreeable to [facility] @ his home. *Address and phone number for Junior provided. *Notified Karen pt will need W/C, heavy duty with elevating leg rests. Karen aware pt agreeable to renting W/C and paying [id number] until [facility]. She is aware [facility] the [facility] will need to be delivered to Junior's home. *Made aware of possible discharge today 08/28/18. Awaiting PT/OT evals. Helena DE LA PAZ RN, CM
--- NOTE | 2018-08-28 10:21 | VDLE_ITS ---
Reason For Study: LEG PAIN RIGHT LEFT GSV is normal. GSV is normal. CFV is compressible, spontaneous, phasic, CFV is compressible, spontaneous, phasic, competent and demonstrates normal competent, and demonstrates normal augmentation. augmentation. FV is compressible, spontaneous, phasic, FV is compressible, spontaneous, phasic, competent and demonstrates normal competent and demonstrates normal augmentation. augmentation. POP V is compressible, spontaneous, phasic, POP V is compressible, spontaneous, phasic, competent and demonstrates normal competent and demonstrates normal augmentation. augmentation. T/P Trunk is compressible. T/P Trunk is compressible. PTV is compressible. Calf veins not imaged due to location of RT PerV is compressible. cast. Procedure Exam performed portable in patient room. A preliminary report was called and/or faxed to [facility]. Interpretation Summary No evidence for acute deep venous thrombosis bilateral lower extremities with patent and compressible bilateral great saphenous veins. Casting present left lower extremity making calf veins unable to be imaged. Ordering Physician: Ronen Boyd Performed By: Rose Zuñiga RVT
--- NOTE | 2018-08-28 11:00 | CASEMGMT ---
Social Work Note BRANDI placed a call to BRANDI Woodard at [place]. Per Vance other SN[facility] with [place] [facility] [place], [facility], [facility] and [facility]. RN CM updated. Melida Leo STONE DRESSER, SLAT TWISTER
[2018-08-28 12:15] LABS: Bedside Glucose 104 mg/dL (70-110)
--- NOTE | 2018-08-28 13:25 | CASEMGMT ---
JUNIOR MORROW NOTE: Call placed to pt's Madhuri NUÑEZ, to discuss discharge planning. Madhuri was made aware of other SNF's pt can go to besides [facility] and she was made aware pt was given a list of these other SNF's but that pt still prefers to be discharged to Jenn's home. Pt states she and her , Junior, are agreeable to pt coming to their home and she states she is planning on helping to take care of pt. Madhuri made aware pt is bedbound and that 2 therapists were unable to transfer pt OOB to a chair today. Madhuri states she is an RN and is aware of the kind of care pt requires and they are willing to provide this care. Madhuri made aware this RN CM informed JUNIOR Jones @ [facility] that they are requesting a hospital bed. She states she is planning on borrowing a hospital bed from a friend and that she will be picking it up this evening and pt can use this in the meantime while they are working on getting a hospital bed through the [place]. Call placed to JUNIOR Jones @ [facility]. Message left on her voicemail notifying her that plans are for pt to discharge home to her son and JOAQUIN's home and that pt will need HHC PT/OT and that she will be needing the W/C through the [place]. Madhuri made aware [facility] are aware of need for HHC for PT/OT and that Karen @ [facility] states this may take a couple of days to a week before start of care can begin. Madhuri states she does not feel pt needs a nurse or an aide through the [place]. Provided Madhuri with [facility] Bin PAZ's phone number and informed her if they decide pt would benefit from an aide that she can contact Bin at that time. Madhuri voiced understanding. Madhuri states she is borrowing a BSC and a Triad from friends and that she also has a vicky belt. Pt already has a shower chair. Madhuri states she just needs to get a bedpan and incontinence pads yet and that she is going to check into local supply companies for these. Madhuri states they are going to go ahead and try to use the W/C they already have available and that they are checking into seeing if they can get leg rests for the W/C. Madhuri made aware pt will need elevated leg rests so that she can keep her legs elevated when in the chair. Madhuri asked if the script for the W/C can be left with pt so that they have the script if the W/C they currently have does not work so they can rent one while awaiting [facility]. Discussed transportation home upon discharge. Madhuri states pt is agreeable to paying for the Ambulance service transportation and asking if transportation personnel are able to assist with transferring pt to her bed in the home and also asking about the cost for transportation. Informed Madhuri CM will inquire about these and call her back with this information. Helena DUFFYN RN CM
--- NOTE | 2018-08-28 14:48 | PCM.PN.HOSP ---
Patient Problems: Active and Suspected Problems (Last Updated 08/27/18 @ 07:00 by Selam Bray DPM) Diabetes mellitus type 2 in obese (Suspected) Fall (Acute) Fracture of fibula, distal, left, closed (Acute) Nondisplaced fracture of lateral malleolus of left fibula, initial encounter for closed fracture (Acute) Right foot pain (Acute) Laceration of right foot (Acute) Subjective: Patient has mild pain in the right leg as well as in the left leg. Vitals/I&O's: Vital Signs Temp Pulse Resp BP Pulse Ox 98.3 F 84 16 159/75 H 94 08/28/18 10:50 08/28/18 13:14 08/28/18 13:14 08/28/18 10:50 08/28/18 10:50 Oxygen Delivery Method Room Air Weight: 261 lb 14.546 oz Body Mass Index (BMI) 44.9 Finger Stick Blood Glucose 198 Intake and Output for Last 24 Hours 08/26/18 08/27/18 08/28/18 23:59 23:59 23:59 Intake Total 965 / 965 2588 / 2588 1355 / 1355 Output Total 725 / 725 1400 / 1400 Balance 965 / 965 1863 / 1863 -45 / -45 General: Alert, Oriented x3, Cooperative HEENT: Atraumatic, PERRLA, EOMI, Normocephalic Neck: Supple, No JVD, Negative Carotid Bruits Lungs: Clear to auscultation, Normal air movement, No rhonchi, No wheeze, No rales Cardiovascular: Regular rate, Regular Rhythm, Normal S1, Normal S2, No murmurs Abdomen: Bowel Sounds Present, Soft, Non Tender Extremities: No edema, Capillary Refill Less than 3 Seconds Skin: No rashes, No breakdown Musculoskeletal: Arthritic Changes, Tenderness - Tenderness in the right leg. Left leg Nestor wrap bandage Neurological: Cranial nerves II-XII grossly intact Psych/Mental Status: Normal Affect, Appropriate Laboratory Results 08/27/18 17:27: POC Glucose 219 H 08/27/18 22:05: POC Glucose 128 H 08/28/18 07:30: POC Glucose Pending 08/28/18 12:10: POC Glucose 104 Current Medications Acetaminophen (Tylenol) 650 mg PO Q6H PRN PRN PRN Reason: Mild Pain (scale 0-3)/T>100.7 Last Admin: 08/27/18 17:36 Dose: 650 mg Al Hydroxide/Mg Hydroxide (Mylanta Ii) 30 ml PO Q6H PRN PRN PRN Reason: Gastric burning Albuterol Sulfate (Ventolin Aerosols) 2.5 mg INHALATION Q4H PRN PRN PRN Reason: WHEEZING Albuterol Sulfate (Ventolin Aerosols) 2.5 mg INHALATION Q6HWA.RT [facility] Last Admin: 08/28/18 13:14 Dose: 2.5 mg Amlodipine Besylate (Norvasc) 10 mg PO DAILY [facility] Last Admin: 08/28/18 04:55 Dose: 10 mg Aspirin (Aspirin, Baby) 81 mg PO DAILY@0800 [facility] Last Admin: 08/28/18 07:34 Dose: 81 mg Atorvastatin Calcium (Lipitor) 20 mg PO QHS [facility] Last Admin: 08/27/18 22:10 Dose: 20 mg Budesonide (Pulmicort Aerosol) 0.5 mg INHALATION Q12H.RT [facility] Last Admin: 08/28/18 07:28 Dose: 0.5 mg Dextrose (D50w Syringe) 0 gm IV X1 PRN; Protocol PRN Reason: Hypoglycemia Enoxaparin Sodium (Lovenox) 40 mg SC DAILY@1000 [facility] Last Admin: 08/28/18 07:41 Dose: 40 mg Ergocalciferol (Vitamin D) 50,000 unit PO QMONTH [facility] Last Admin: 08/26/18 18:21 Dose: 50,000 unit Glucagon () 1 mg IM .X1 PRN PRN Reason: Hypoglycemia Hydralazine HCl (Apresoline Iv) 10 mg IV Q4H PRN PRN PRN Reason: SBP>180 mmhg Ibuprofen (Motrin) 600 mg PO Q8H PRN PRN PRN Reason: MILD PAIN (1-3/10) Last Admin: 08/28/18 07:46 Dose: 600 mg Insulin Human Lispro (Humalog Kwikpen (Bkc)) 0 unit SQ ACHS [facility]; Protocol Last Admin: 08/28/18 12:12 Dose: Not Given Insulin Human Lispro (Humalog Kwikpen (Bkc)) 20 unit SC BIDCM [facility] Last Admin: 08/28/18 07:35 Dose: 20 unit Insulin Human NPH (Humulin N (Bkc)) 35 units SC QHS [facility] Last Admin: 08/27/18 22:09 Dose: 35 u Insulin Human NPH (Humulin N (Bkc)) 60 units SC DAILY@0730 [facility] Last Admin: 08/28/18 07:34 Dose: 60 u Lamotrigine (Lamictal) 300 mg PO BID [facility] Last Admin: 08/28/18 07:42 Dose: 300 mg Lisinopril (Zestril) 40 mg PO DAILY [facility] Last Admin: 08/28/18 07:46 Dose: 40 mg Magnesium Hydroxide (Milk Of Magnesia) 30 ml PO DAILY PRN PRN PRN Reason: Constipation Morphine Sulfate () 2 mg IV Q3H PRN PRN PRN Reason: Severe Pain (pain scale 6-10) Last Admin: 08/27/18 09:42 Dose: 2 mg [facility]) [facility] Last Admin: 08/28/18 07:34 Dose: 1 tablet Oxycodone HCl (Oxyir) 5 mg PO Q4H PRN PRN PRN Reason: Moderate Pain (pain scale 4-5) Last Admin: 08/28/18 04:53 Dose: 5 mg Pantoprazole Sodium (Protonix) 20 mg PO BID [facility] Last Admin: 08/28/18 07:42 Dose: 20 mg Paroxetine HCl (Paxil) 30 mg PO DAILY [facility] Last Admin: 08/28/18 07:41 Dose: 30 mg Senna/Docusate Sodium (Senokot-S, Fani-Colace) 2 tablet PO BID [facility] Last Admin: 08/28/18 07:40 Dose: 2 tablet Sodium Chloride () 5 - 15 ml IV UD PRN PRN Reason: SALINE FLUSH Last Admin: 08/26/18 21:42 Dose: 10 ml Tizanidine HCl (Zanaflex) 4 mg PO Q8H PRN PRN PRN Reason: muscle pain/spasm Topiramate (Topamax) 50 mg PO BID [facility] Last Admin: 08/28/18 07:40 Dose: 50 mg Zolpidem Tartrate (Ambien (Generic)) 5 mg PO QHS PRN PRN PRN Reason: INSOMNIA Medical Necessity - Tobacco Use Smoking Status: Never smoker Tobacco Use: Non-smoker Assessment/Plan All Active Problems (Last Updated 08/27/18 @ 07:00 by Selam Bray DPM) Fall (Acute) Fracture of fibula, distal, left, closed (Acute) Nondisplaced fracture of lateral malleolus of left fibula, initial encounter for closed fracture (Acute) Right foot pain (Acute) Laceration of right foot (Acute) The patient is a 68 year old F with multiple comorbidities as mentioned above was brought into ED after she fell while walking on the ice. She walks on cane, slipped and landed on buttocks with knees flexed. Her feet were trapped under buttock. Patient denies hitting her head, neck and no loss of consciousness. In ED, multiple x-rays were done shows fracture of distal left fibula. Cell Tester Dr. Ma is consulted [] 1. Fall with fracture of left distal fibula/lateral malleolus of ankle joint: The patient is being admitted on regular floor. Anti-inflammatory agent, ibuprofen and muscle relaxants ordered. Pain control, PT and OT. IV fluid normal saline for dehydration. Left lower leg below knee is under Nestor wrap bandage. Labs CBC, BMP and CK ordered 2. Diabetes mellitus type 2 with diabetic neuropathy: Patient said she had improvement in A1c recently with last A1c about 8 as an outpatient. Accu-Chek before meals and at bedtime cover with NovoLog sliding scale. Blood sugar is controlled. 3. Hypertension: Blood pressure was very high in the ED, 193/69, heart rate 76. Twelve-lead EKG normal sinus rhythm at 77 bpm, QRS 124 ms, LAD with LVH. Home medication continued. Amlodipine 10 mg 1 dose given blood pressure control 153/75. Blood pressure is controlled. No previous echo. The echo recommended as an outpatient. 4. Other comorbidities include dyslipidemia, morbid obesity, chronic stable asthma: Home medication reconciliation done. This note was generated with [employer] dictation software. Every effort was made to ensure accuracy, however computerized air route traffic controller mistakes may persist. Plan of management reviewed with the patient and she affirms understanding. In the morning today patient agreed for SNF placement but later on family is arranging for DME in home and will go to son's home. Laboratory Results 08/26/18 17:21: POC Glucose 217 H 08/26/18 21:31: POC Glucose 167 H 08/27/18 09:26: POC Glucose 282 H 08/27/18 11:51: POC Glucose 249 H Clinical Impression(s) from Imaging Studies Ankle X-Ray 08/26/18 08:58 IMPRESSION: Nondisplaced oblique fracture of the distal fibula. Soft tissue swelling and vascular calcification. Knee X-Ray 08/26/18 08:58 IMPRESSION: Normal x-ray examination of the knee. Lumbar Spine X-Ray 08/26/18 08:58 IMPRESSION: Degenerative changes of the spine, as detailed above. Pelvis X-Ray 08/26/18 08:58 IMPRESSION: Degenerative changes of both hips. No acute fracture is seen. Knee X-Ray 08/26/18 10:22 IMPRESSION: Degenerative arthrosis. Small joint effusion. Ankle X-Ray 08/26/18 10:23 IMPRESSION: Plantar spurs. No acute abnormality is seen. Active Medications Acetaminophen (Tylenol) 650 mg PO Q6H PRN PRN PRN Reason: Mild Pain (scale 0-3)/T>100.7 Al Hydroxide/Mg Hydroxide (Mylanta Ii) 30 ml PO Q6H PRN PRN PRN Reason: Gastric burning Albuterol Sulfate (Ventolin Aerosols) 2.5 mg INHALATION Q4H PRN PRN PRN Reason: WHEEZING Albuterol Sulfate (Ventolin Aerosols) 2.5 mg INHALATION Q6HWA.RT [facility] Last Admin: 08/27/18 12:55 Dose: 2.5 mg Amlodipine Besylate (Norvasc) 10 mg PO DAILY [facility] Last Admin: 08/27/18 09:36 Dose: 10 mg Aspirin (Aspirin, Baby) 81 mg PO DAILY@0800 [facility] Last Admin: 08/27/18 09:34 Dose: 81 mg Atorvastatin Calcium (Lipitor) 20 mg PO QHS [facility] Last Admin: 08/26/18 21:42 Dose: 20 mg Budesonide (Pulmicort Aerosol) 0.5 mg INHALATION Q12H.RT [facility] Last Admin: 08/27/18 06:43 Dose: 0.5 mg Cyclobenzaprine HCl (Flexeril) 10 mg PO TID [facility] Last Admin: 08/27/18 15:14 Dose: 10 mg Dextrose (D50w Syringe) 0 gm IV X1 PRN; Protocol PRN Reason: Hypoglycemia Enoxaparin Sodium (Lovenox) 40 mg SC DAILY@1000 [facility] Last Admin: 08/27/18 09:36 Dose: 40 mg Ergocalciferol (Vitamin D) 50,000 unit PO QMONTH [facility] Last Admin: 08/26/18 18:21 Dose: 50,000 unit Glucagon () 1 mg IM .X1 PRN PRN Reason: Hypoglycemia Hydralazine HCl (Apresoline Iv) 10 mg IV Q4H PRN PRN PRN Reason: SBP>180 mmhg Sodium Chloride () 1,000 mls @ 75 mls/hr IV .[id number] [facility] Last Admin: 08/27/18 15:15 Dose: 75 mls/hr Ibuprofen (Motrin) 600 mg PO Q8H PRN PRN PRN Reason: MILD PAIN (1-3) Last Admin: 08/26/18 15:21 Dose: 600 mg Insulin Human Lispro (Humalog Kwikpen (Bkc)) 0 unit SQ ACHS [facility]; Protocol Last Admin: 08/27/18 11:53 Dose: 4 unit Insulin Human Lispro ([facility] (Bkc)) [facility] Last Admin: 08/27/18 09:46 Dose: 20 unit Insulin Human NPH (Humulin N (Bkc)) 35 units SC QHS [facility] Last Admin: 08/26/18 21:43 Dose: 35 u Insulin Human NPH (Humulin N (Bkc)) 60 units SC DAILY@0730 [facility] Last Admin: 08/27/18 09:31 Dose: 60 u Lamotrigine (Lamictal) 300 mg PO BID [facility] Last Admin: 08/27/18 09:36 Dose: 300 mg Lisinopril (Zestril) 30 mg PO DAILY [facility] Last Admin: 08/27/18 09:37 Dose: 30 mg Magnesium Hydroxide (Milk Of Magnesia) 30 ml PO DAILY PRN PRN PRN Reason: Constipation Morphine Sulfate () 2 mg IV Q3H PRN PRN PRN Reason: Severe Pain (pain scale 6-10) Last Admin: 08/27/18 09:42 Dose: 2 mg Multivitamins ([facility]itamin) [facility] Last Admin: 08/27/18 09:35 Dose: 1 tablet Oxycodone HCl (Oxyir) 5 mg PO Q4H PRN PRN PRN Reason: Moderate Pain (pain scale 4-5) Last Admin: 08/27/18 01:52 Dose: 5 mg Pantoprazole Sodium (Protonix) 20 mg PO BID [facility] Last Admin: 08/27/18 09:37 Dose: 20 mg Paroxetine HCl (Paxil) 30 mg PO DAILY [facility] Last Admin: 08/27/18 10:20 Dose: 30 mg Senna/Docusate Sodium (Senokot-S, Fani-Colace) 2 tablet PO BID [facility] Last Admin: 08/27/18 09:36 Dose: 2 tablet Sodium Chloride () 5 - 15 ml IV UD PRN PRN Reason: SALINE FLUSH Last Admin: 08/26/18 21:42 Dose: 10 ml Topiramate (Topamax) 50 mg PO BID [facility] Last Admin: 08/27/18 09:37 Dose: 50 mg Zolpidem Tartrate (Ambien (Generic)) 5 mg PO QHS PRN PRN PRN Reason: INSOMNIA Code Visit Inpatient E&M: 25409 Subs Hosp L3
--- NOTE | 2018-08-28 14:53 | PN_ITS ---
Patient Problems: Active and Suspected Problems (Last Updated 08/27/18 @ 07:00 by Selam Bray DPM) Diabetes mellitus type 2 in obese (Suspected) Fall (Acute) Fracture of fibula, distal, left, closed (Acute) Nondisplaced fracture of lateral malleolus of left fibula, initial encounter for closed fracture (Acute) Right foot pain (Acute) Laceration of right foot (Acute) Subjective: Patient has mild pain in the right leg as well as in the left leg. Vitals/I&O's: Vital Signs Temp Pulse Resp BP Pulse Ox 98.3 F 84 16 159/75 H 94 08/28/18 10:50 08/28/18 13:14 08/28/18 13:14 08/28/18 10:50 08/28/18 10:50 Oxygen Delivery Method Room Air Weight: 261 lb 14.546 oz Body Mass Index (BMI) 44.9 Finger Stick Blood Glucose 198 Intake and Output for Last 24 Hours 08/26/18 08/27/18 08/28/18 23:59 23:59 23:59 Intake Total 965 / 965 2588 / 2588 1355 / 1355 Output Total 725 / 725 1400 / 1400 Balance 965 / 965 1863 / 1863 -45 / -45 General: Alert, Oriented x3, Cooperative HEENT: Atraumatic, PERRLA, EOMI, Normocephalic Neck: Supple, No JVD, Negative Carotid Bruits Lungs: Clear to auscultation, Normal air movement, No rhonchi, No wheeze, No rales Cardiovascular: Regular rate, Regular Rhythm, Normal S1, Normal S2, No murmurs Abdomen: Bowel Sounds Present, Soft, Non Tender Extremities: No edema, Capillary Refill Less than 3 Seconds Skin: No rashes, No breakdown Musculoskeletal: Arthritic Changes, Tenderness - Tenderness in the right leg. Left leg Nestor wrap bandage Neurological: Cranial nerves II-XII grossly intact Psych/Mental Status: Normal Affect, Appropriate Laboratory Results 08/27/18 17:27: POC Glucose 219 H 08/27/18 22:05: POC Glucose 128 H 08/28/18 07:30: POC Glucose Pending 08/28/18 12:10: POC Glucose 104 Current Medications Acetaminophen (Tylenol) 650 mg PO Q6H PRN PRN PRN Reason: Mild Pain (scale 0-3)/T>100.7 Last Admin: 08/27/18 17:36 Dose: 650 mg Al Hydroxide/Mg Hydroxide (Mylanta Ii) 30 ml PO Q6H PRN PRN PRN Reason: Gastric burning Albuterol Sulfate (Ventolin Aerosols) 2.5 mg INHALATION Q4H PRN PRN PRN Reason: WHEEZING Albuterol Sulfate (Ventolin Aerosols) 2.5 mg INHALATION Q6HWA.RT [facility] Last Admin: 08/28/18 13:14 Dose: 2.5 mg Amlodipine Besylate (Norvasc) 10 mg PO DAILY [facility] Last Admin: 08/28/18 04:55 Dose: 10 mg Aspirin (Aspirin, Baby) 81 mg PO DAILY@0800 [facility] Last Admin: 08/28/18 07:34 Dose: 81 mg Atorvastatin Calcium (Lipitor) 20 mg PO QHS [facility] Last Admin: 08/27/18 22:10 Dose: 20 mg Budesonide (Pulmicort Aerosol) 0.5 mg INHALATION Q12H.RT [facility] Last Admin: 08/28/18 07:28 Dose: 0.5 mg Dextrose (D50w Syringe) 0 gm IV X1 PRN; Protocol PRN Reason: Hypoglycemia Enoxaparin Sodium (Lovenox) 40 mg SC DAILY@1000 [facility] Last Admin: 08/28/18 07:41 Dose: 40 mg Ergocalciferol (Vitamin D) 50,000 unit PO QMONTH [facility] Last Admin: 08/26/18 18:21 Dose: 50,000 unit Glucagon () 1 mg IM .X1 PRN PRN Reason: Hypoglycemia Hydralazine HCl (Apresoline Iv) 10 mg IV Q4H PRN PRN PRN Reason: SBP>180 mmhg Ibuprofen (Motrin) 600 mg PO Q8H PRN PRN PRN Reason: MILD PAIN (1-3/10) Last Admin: 08/28/18 07:46 Dose: 600 mg Insulin Human Lispro (Humalog Kwikpen (Bkc)) 0 unit SQ ACHS [facility]; Protocol Last Admin: 08/28/18 12:12 Dose: Not Given Insulin Human Lispro (Humalog Kwikpen (Bkc)) 20 unit SC BIDCM [facility] Last Admin: 08/28/18 07:35 Dose: 20 unit Insulin Human NPH (Humulin N (Bkc)) 35 units SC QHS [facility] Last Admin: 08/27/18 22:09 Dose: 35 u Insulin Human NPH (Humulin N (Bkc)) 60 units SC DAILY@0730 [facility] Last Admin: 08/28/18 07:34 Dose: 60 u Lamotrigine (Lamictal) 300 mg PO BID [facility] Last Admin: 08/28/18 07:42 Dose: 300 mg Lisinopril (Zestril) 40 mg PO DAILY [facility] Last Admin: 08/28/18 07:46 Dose: 40 mg Magnesium Hydroxide (Milk Of Magnesia) 30 ml PO DAILY PRN PRN PRN Reason: Constipation Morphine Sulfate () 2 mg IV Q3H PRN PRN PRN Reason: Severe Pain (pain scale 6-10) Last Admin: 08/27/18 09:42 Dose: 2 mg [facility] Admin: 08/28/18 07:34 Dose: 1 tablet Oxycodone HCl (Oxyir) 5 mg PO Q4H PRN PRN PRN Reason: Moderate Pain (pain scale 4-5) Last Admin: 08/28/18 04:53 Dose: 5 mg Pantoprazole Sodium (Protonix) 20 mg PO BID [facility] Last Admin: 08/28/18 07:42 Dose: 20 mg Paroxetine HCl (Paxil) 30 mg PO DAILY [facility] Last Admin: 08/28/18 07:41 Dose: 30 mg Senna/Docusate Sodium (Senokot-S, Fani-Colace) 2 tablet PO BID [facility] Last Admin: 08/28/18 07:40 Dose: 2 tablet Sodium Chloride () 5 - 15 ml IV UD PRN PRN Reason: SALINE FLUSH Last Admin: 08/26/18 21:42 Dose: 10 ml Tizanidine HCl (Zanaflex) 4 mg PO Q8H PRN PRN PRN Reason: muscle pain/spasm Topiramate (Topamax) 50 mg PO BID [facility] Last Admin: 08/28/18 07:40 Dose: 50 mg Zolpidem Tartrate (Ambien (Generic)) 5 mg PO QHS PRN PRN PRN Reason: INSOMNIA Medical Necessity - Tobacco Use Smoking Status: Never smoker Tobacco Use: Non-smoker Assessment/Plan All Active Problems (Last Updated 08/27/18 @ 07:00 by Selam Bray DPM) Fall (Acute) Fracture of fibula, distal, left, closed (Acute) Nondisplaced fracture of lateral malleolus of left fibula, initial encounter for closed fracture (Acute) Right foot pain (Acute) Laceration of right foot (Acute) The patient is a 68 year old F with multiple comorbidities as mentioned above was brought into ED after she fell while walking on the ice. She walks on cane, slipped and landed on buttocks with knees flexed. Her feet were trapped under buttock. Patient denies hitting her head, neck and no loss of consciousness. In ED, multiple x-rays were done shows fracture of distal left fibula. Director Part Dr. Ma is consulted [] 1. Fall with fracture of left distal fibula/lateral malleolus of ankle joint: The patient is being admitted on regular floor. Anti-inflammatory agent, ibuprofen and muscle relaxants ordered. Pain control, PT and OT. IV fluid normal saline for dehydration. Left lower leg below knee is under Nestor wrap bandage. Labs CBC, BMP and CK ordered 2. Diabetes mellitus type 2 with diabetic neuropathy: Patient said she had improvement in A1c recently with last A1c about 8 as an outpatient. Accu-Chek before meals and at bedtime cover with NovoLog sliding scale. Blood sugar is controlled. 3. Hypertension: Blood pressure was very high in the ED, 193/69, heart rate 76. Twelve-lead EKG normal sinus rhythm at 77 bpm, QRS 124 ms, LAD with LVH. Home medication continued. Amlodipine 10 mg 1 dose given blood pressure control 153/75. Blood pressure is controlled. No previous echo. The echo recommended as an outpatient. 4. Other comorbidities include dyslipidemia, morbid obesity, chronic stable asthma: Home medication reconciliation done. This note was generated with [employer] dictation software. Every effort was made to ensure accuracy, however computerized paper novelty maker mistakes may persist. Plan of management reviewed with the patient and she affirms understanding. In the morning today patient agreed for SNF placement but later on family is arranging for DME in home and will go to son's home. Laboratory Results 08/26/18 17:21: POC Glucose 217 H 08/26/18 21:31: POC Glucose 167 H 08/27/18 09:26: POC Glucose 282 H 08/27/18 11:51: POC Glucose 249 H Clinical Impression(s) from Imaging Studies Ankle X-Ray 08/26/18 08:58 IMPRESSION: Nondisplaced oblique fracture of the distal fibula. Soft tissue swelling and vascular calcification. Knee X-Ray 08/26/18 08:58 IMPRESSION: Normal x-ray examination of the knee. Lumbar Spine X-Ray 08/26/18 08:58 IMPRESSION: Degenerative changes of the spine, as detailed above. Pelvis X-Ray 08/26/18 08:58 IMPRESSION: Degenerative changes of both hips. No acute fracture is seen. Knee X-Ray 08/26/18 10:22 IMPRESSION: Degenerative arthrosis. Small joint effusion. Ankle X-Ray 08/26/18 10:23 IMPRESSION: Plantar spurs. No acute abnormality is seen. Active Medications Acetaminophen (Tylenol) 650 mg PO Q6H PRN PRN PRN Reason: Mild Pain (scale 0-3)/T>100.7 Al Hydroxide/Mg Hydroxide (Mylanta Ii) 30 ml PO Q6H PRN PRN PRN Reason: Gastric burning Albuterol Sulfate (Ventolin Aerosols) 2.5 mg INHALATION Q4H PRN PRN PRN Reason: WHEEZING Albuterol Sulfate (Ventolin Aerosols) 2.5 mg INHALATION Q6HWA.RT [facility] Last Admin: 08/27/18 12:55 Dose: 2.5 mg Amlodipine Besylate (Norvasc) 10 mg PO DAILY [facility] Last Admin: 08/27/18 09:36 Dose: 10 mg Aspirin (Aspirin, Baby) 81 mg PO DAILY@0800 [facility] Last Admin: 08/27/18 09:34 Dose: 81 mg Atorvastatin Calcium (Lipitor) 20 mg PO QHS [facility] Last Admin: 08/26/18 21:42 Dose: 20 mg Budesonide (Pulmicort Aerosol) 0.5 mg INHALATION Q12H.RT [facility] Last Admin: 08/27/18 06:43 Dose: 0.5 mg Cyclobenzaprine HCl (Flexeril) 10 mg PO TID [facility] Last Admin: 08/27/18 15:14 Dose: 10 mg Dextrose (D50w Syringe) 0 gm IV X1 PRN; Protocol PRN Reason: Hypoglycemia Enoxaparin Sodium (Lovenox) 40 mg SC DAILY@1000 [facility] Last Admin: 08/27/18 09:36 Dose: 40 mg Ergocalciferol (Vitamin D) 50,000 unit PO QMONTH [facility] Last Admin: 08/26/18 18:21 Dose: 50,000 unit Glucagon () 1 mg IM .X1 PRN PRN Reason: Hypoglycemia Hydralazine HCl (Apresoline Iv) 10 mg IV Q4H PRN PRN PRN Reason: SBP>180 mmhg Sodium Chloride () 1,000 mls @ 75 mls/hr IV .[id number] [facility] Last Admin: 08/27/18 15:15 Dose: 75 mls/hr Ibuprofen (Motrin) 600 mg PO Q8H PRN PRN PRN Reason: MILD PAIN (1-3) Last Admin: 08/26/18 15:21 Dose: 600 mg Insulin Human Lispro (Humalog Kwikpen (Bkc)) 0 unit SQ ACHS [facility]; Protocol Last Admin: 08/27/18 11:53 Dose: 4 unit Insulin Human Lispro ([facility] (Bkc)) [facility] Last Admin: 08/27/18 09:46 Dose: 20 unit Insulin Human NPH (Humulin N (Bkc)) 35 units SC QHS [facility] Last Admin: 08/26/18 21:43 Dose: 35 u Insulin Human NPH (Humulin N (Bkc)) 60 units SC DAILY@0730 [facility] Last Admin: 08/27/18 09:31 Dose: 60 u Lamotrigine (Lamictal) 300 mg PO BID [facility] Last Admin: 08/27/18 09:36 Dose: 300 mg Lisinopril (Zestril) 30 mg PO DAILY [facility] Last Admin: 08/27/18 09:37 Dose: 30 mg Magnesium Hydroxide (Milk Of Magnesia) 30 ml PO DAILY PRN PRN PRN Reason: Constipation Morphine Sulfate () 2 mg IV Q3H PRN PRN PRN Reason: Severe Pain (pain scale 6-10) Last Admin: 08/27/18 09:42 Dose: 2 mg [facility]ivit[facility] ([facility]amin) [facility] Last Admin: 08/27/18 09:35 Dose: 1 tablet Oxycodone HCl (Oxyir) 5 mg PO Q4H PRN PRN PRN Reason: Moderate Pain (pain scale 4-5) Last Admin: 08/27/18 01:52 Dose: 5 mg Pantoprazole Sodium (Protonix) 20 mg PO BID [facility] Last Admin: 08/27/18 09:37 Dose: 20 mg Paroxetine HCl (Paxil) 30 mg PO DAILY [facility] Last Admin: 08/27/18 10:20 Dose: 30 mg Senna/Docusate Sodium (Senokot-S, Fani-Colace) 2 tablet PO BID [facility] Last Admin: 08/27/18 09:36 Dose: 2 tablet Sodium Chloride () 5 - 15 ml IV UD PRN PRN Reason: SALINE FLUSH Last Admin: 08/26/18 21:42 Dose: 10 ml Topiramate (Topamax) 50 mg PO BID [facility] Last Admin: 08/27/18 09:37 Dose: 50 mg Zolpidem Tartrate (Ambien (Generic)) 5 mg PO QHS PRN PRN PRN Reason: INSOMNIA Code Visit Inpatient E&M: 72514 Subs Hosp L3
[2018-08-28 17:01] LABS: Bedside Glucose 189 mg/dL (70-110)
[2018-08-28] MEDS: Atorvastatin Calcium 20 MG Tablet PO (21:14)
[2018-08-28] MEDS: Acetaminophen 325 MG Tablet 650 MG PO (21:47)
[2018-08-28] MEDS: Insulin NPH Human 100 UNITS/ML PEN 35 UNITS SC (21:48)
[2018-08-28 21:51] LABS: Bedside Glucose 207 mg/dL (70-110)
[2018-08-29 03:43] VITALS: BP 151/60; PULSE 77; RESP 18; TEMP 36.9; O2SAT 97
[2018-08-29 06:37] LABS: Anion Gap 9 (5-15); BUN 8 mg/dL (7-18); Calcium,Total 8.7 mg/dL (8.5-10.1); Chloride 109 mmol/L (98-107); Creatinine, Serum 0.67 mg/dL (0.55-1.02); EST Glomerular Filtration Rate 93 mL/min (>60); Est Glom Filt Rate - Afr Amer 113 mL/min (>60); Glucose 187 mg/dL (74-106); Potassium 3.9 mmol/L (3.5-5.1); Sodium Level 142 mmol/L (136-145)
[2018-08-29 07:00] LABS: Absolute Lymphocyte Count 1.91 X10^3/ul (0.83-4.51); Absolute Neutrophil Count 3.9 X10^3/uL (2.0-7.7); Basophil# 0.06 X10^3/uL; Basophil% 0.9 % (0-1); Eosinophil# 0.37 X10^3/uL; Eosinophils% 5.5 % (0-5); Hematocrit 36.5 % (37-47); Hemoglobin 12.5 g/dl (12.0-15.0); Lymphocyte # 1.91 X10^3/ul (4.0); Lymphocyte % 28.3 % (19-41); Mean Corp Hgb Conc 34.2 g/gl (32-36); Mean Corpuscular Hgb 30.3 pg (27.0-32.0); Mean Corpuscular Volume 88.6 fL (81-99); Mean Platelet Vol. 10.9 fl (6.2-12.0); Monocyte# 0.51 X10^3/uL; Monocyte% 7.6 % (0-10); Neutrophil # 3.87 X10^3/uL (2.7-7.7); Neutrophil % 57.4 % (47-70); Platelet Count 273 K/mm3 (150-450); RBC Distribution Width CV 12.5 % (11.6-14.6); RBC Distribution Width SD 40.4 fl (35.1-43.9); Red Blood Count 4.12 M/mm3 (4.2-5.4); White Blood Count 6.7 K/mm3 (4.4-11.0)
[2018-08-29 07:01] LABS: POSITIVE COUNT NO; POSITIVE DIFFERENTIAL NO; POSITIVE MORPHOLOGY NO
[2018-08-29] MEDS: amLODIPine 10 MG Tablet PO (08:52)
[2018-08-29] MEDS: Multivitamins,Therapeutic Tablet 1 TABLET PO (08:52)
[2018-08-29] MEDS: PARoxetine 10 MG Tablet 30 MG PO (08:52)
[2018-08-29] MEDS: Aspirin 81 MG TAB.CHEW PO (08:52)
[2018-08-29] MEDS: Pantoprazole Sodium 20 MG Tablet PO (08:52)
[2018-08-29] MEDS: Senna/Docusate Sodium 1 Tablet 2 TABLET PO (08:52)
[2018-08-29] MEDS: lamoTRIgine 150 MG Tablet 300 MG PO (08:52)
[2018-08-29] MEDS: Lisinopril 40 MG Tablet PO (08:52)
[2018-08-29] MEDS: Topiramate 50 MG Tablet PO (08:52)
[2018-08-29] MEDS: Insulin Lispro 100 UNIT/ML INSULN.PEN 20 UNIT SC (08:53)
[2018-08-29] MEDS: Insulin Lispro 100 UNIT/ML INSULN.PEN SQ (08:53)
[2018-08-29] MEDS: Insulin NPH Human 100 UNITS/ML PEN 60 UNITS SC (08:53)
[2018-08-29] MEDS: Enoxaparin 40 MG/0.4 ML Syringe SC (08:54)
[2018-08-29 09:00] VITALS: BP 193/91; PULSE 81; RESP 19; TEMP 36.7; O2SAT 100
[2018-08-29 09:11] LABS: Bedside Glucose 177 mg/dL (70-110)
--- NOTE | 2018-08-29 09:36 | CASEMGMT ---
Addendum entered by Naty Rausch 08/29/18 14:13: Call received from Valentina who states Madhuri will not have the W/C available by today. Pt agreeable to paying to rent the W/C [id number] and requests for script to be faxed to [facility]. Valentina states she will go pickle solution maker the W/C in 1/2 hour @ Done In :60 [employer] and bring it in to the hospital by 3 PM. Call placed to Lyndsay @ [facility]. She states they do have a W/C available with elevated leg rests and will work on getting it ready for Valentina to pickle solution maker. Script faxed to [facility]. Original Note: Addendum entered by Naty Rausch 08/29/18 13:05: Call received from pt's daughter, Valentina, who stated her mother asked for her to call in to talk with this RN CM for updates on discharge plans. Update given on all discharge plans. Transportation arrangements made through [facility] W/C van transportation and pickle solution maker will be b/w 1500 and 1530. Pt made aware and is agreeable to this. Valentina also notified. Discharge instructions faxed to Fred Jones RN. Original Note: Addendum entered by Naty Rausch 08/29/18 11:35: Madhuri returned call. She states she is aware pt wishes to discharge to her own home now. Madhuri confirms that the plans are for family to provide 24-hr care in pt's own home. Madhuri states she did pickle solution maker the hospital bed last PM and set it up in her own home and she is not sure yet if pt wants to have the hospital bed transferred to pt's own or if pt is going to be using her own personal bed. Madhuri states she will transfer it to pt's home if pt wishes. Madhuri states she is aware pt is now wanting [facility]. Madhuri notified this RN CM will contact BRANDI @ [facility] to to inform her of aide services requested. Madhuri states [facility] and is also working on getting a walker and BSC through them, in addition to a W/C and hospital bed. Call received from Bin [facility] BRANDI. She was made aware pt will need/is requesting aide services through the [place]. [facility] form updated and faxed to her @ . She was also notified that pt will be discharging to her own home now, instead of to her son and DIL's home, and that pt will be discharging today 08/29/18. Call placed to JUNIOR Jones @ [facility]. Message left on her VM stating that pt is now discharging home to her own home and will need HHC services at her address, and that pt is discharging today 08-29-18. Also left message stating that Madhuri is requesting a BSC and walker through the [place] in addition to the W/C and hospital bed and that told she told this RN CM that she has already contacted someone at the [place] re: this. PT/OT has worked with pt this AM. JUNIOR CM to room to talk with pt after therapy completed. Pt states she did not transfer well and that she is now agreeable to paying for Ambulance W/C Van transportation services, instead of having her family take her home in their private vehicle. Pt confirms she does not want the cot services, only the W/C services and again confirms there will be plenty of men to transfer me once I get home. Pt states that her son will be coming in at 3 PM today to go over discharge instructions and agreeable to transportation services being set up for 1530. Original Note: Addendum entered by Naty Rausch 08/29/18 10:54: Call received from Bin [facility] BRANDI. Original Note: Addendum entered by Naty Rausch 08/29/18 10:08: JUNIOR MORROW to pt's room. Informed her of transportation costs, as listed below. Pt states that her family is planning on providing transportation home and states, I have plenty of family and men that can help transfer me from chair to bed and they have big van's they can take me home in. Pt also informs this RN CM that the plans have changed now and that she will be returning to her home instead of her son and DIL's home. She states that her daughter, 2 sons, and 2 DIL's will all be taking turns to provide 24/7 care to her in her own home. She also states they are planning on getting aides through the [facility] and that the [facility] states they will provide an aide to her 5 days a week for 3-5 hrs a day. Call placed to Bin PAZ, @ [facility] to confirm this information and to inquire if she needs the [facility] form completed/faxed to her. No answer. Message left for her to return call to this RN CM. Also awaiting return call from Madhuri NUÑEZ. Original Note: JUNIOR MORROW NOTE: Per pt's Madhuri NUÑEZ's request, call placed to [facility] and [facility] for tracy check on transport costs from [facility] to pt's son, Junior's home. [facility] Care: W/C: $48 base tracy + $4.50/mile. Cot: $376 base + $14.75/mile. [facility]: W/C: total $55, Cot: total $240. Inquired about amt of assistance these transport services provide re: if they will help transfer pt into her bed in the home. Both places state they can only transfer pt into her bed if pt goes by cot services, and that is only if they can get the cot into the home to her bed. They stated if pt goes by W/C transport, then they can not assist transferring the pt into her bed in the home. Call placed to Madhuri @ [phone] and message left for her to return call to this RN CRISTHIAN. Pt was also given script for W/C with elevating leg rests per Madhuri's request. Helena DUFFYN JUNIOR CM
--- NOTE | 2018-08-29 10:08 | DCINST_ITS ---
- Discharge Diagnoses Current Active Problems: Current Active and Chronic Problems (Last Updated 08/27/18 @ 07:00 by Selam Bray DPM) Hypertension (Chronic) Fall (Acute) Fracture of fibula, distal, left, closed (Acute) Dyslipidemia (Chronic) Chronic stable Asthma (Chronic) Nondisplaced fracture of lateral malleolus of left fibula, initial encounter for closed fracture (Acute) Right foot pain (Acute) Laceration of right foot (Acute) You will use the following diet at home:: Calorie/Carbohydrate Controlled (spe cify 1200, 1400, etc), Cardiac Discharge Activity: May Not Drive Call your doctor if you observe: Fever of 101 or Higher, Numbness or Tingling, Shortness of breath, Fainting spells, Chest pain, Increased palpitations (irregular heartbeat), Uncontrolled pain Allergies/Adverse Reactions: Allergies ciprofloxacin Allergy (Verified 08/26/18 16:16) Unknown hydrochlorothiazide Allergy (Verified 08/26/18 16:16) Unknown pentazocine [From Talwin] Allergy (Verified 08/26/18 16:16) Unknown Medications to take at Discharge Lamotrigine [Lamictal] 300 mg PO BID 12/19/13 Omeprazole [Prilosec] 20 mg PO BID 12/19/13 Simvastatin [Zocor] 40 mg PO QHS 12/19/13 Topiramate [Topamax] 50 mg PO BID 12/19/13 Albuterol Aerosols [Ventolin Aerosols] 2.5 mg INHALATION Q4H PRN PRN 05/09/14 Glucosam/Kiran-Msm1/C/Cricket/Bosw [Osteo Bi-Flex Caplet] 1 each PO BID 05/09/14 Insulin NPH Human [Humulin N Pen] 60 units SC DAILY@0730 05/09/14 Insulin Regular, Human [Novolin R] 20 unit SC BIDAC 05/09/14 Aspirin [Aspirin, Baby] 81 mg PO DAILY@0800 08/26/18 Budesonide/Formoterol 160/4.5 [Symbicort 160/4.5 Mcg Inhaler (SP)] 1 puff INHALATION BID 08/26/18 Ergocalciferol (Vitamin D2) [Drisdol] 50,000 unit PO QMONTH 08/26/18 Paroxetine HCl 30 mg PO DAILY 08/26/18 Phenobarbital 30 mg PO TID 08/26/18 Amlodipine [Norvasc] 10 mg PO DAILY #0 08/28/18 Cetirizine HCl [Zyrtec] 10 mg PO DAILY PRN PRN #0 08/28/18 Insulin NPH Human [Humulin N Pen] 35 units SC QHS #0 08/28/18 Tizanidine HCl [Zanaflex] 2 mg PO Q8H PRN PRN #20 tab 08/28/18 Hydrocodone Bitart/Apap 5-325 [Berlin 5/325] 1 tab PO Q4H PRN PRN #10 tab 08/29/18 Lisinopril [Zestril] 40 mg PO DAILY #30 tab 08/29/18 The following prescriptions were given: Hydrocodone Bitart/Apap 5-325 [Berlin 5/325] 1 tab PO Q4H PRN PRN #10 tab PRN Reason: Pain Tizanidine HCl [Zanaflex] 2 mg PO Q8H PRN PRN #20 tab PRN Reason: muscle pain/spasm Lisinopril [Zestril] 40 mg PO DAILY #30 tab Primary Care Physician: [facility] Doctor,Out of [NON-STAFF] - Please follow up with your Primary Care Physician in: [place] in 1-2 week Test Results: Test results from this visit will be discussed in further detail at your follow- up appointment, if applicable. Please Follow Up With: Everton Ma DPM When: in 1-2 week
[2018-08-29 11:25] LABS: Bedside Glucose 156 mg/dL (70-110)
--- NOTE | 2018-08-29 13:38 | PCM.PROGNOTE ---
Patient Problems: Active and Suspected Problems (Last Updated 08/27/18 @ 07:00 by Selam Bray DPM) Diabetes mellitus type 2 in obese (Suspected) Fall (Acute) Fracture of fibula, distal, left, closed (Acute) Nondisplaced fracture of lateral malleolus of left fibula, initial encounter for closed fracture (Acute) Right foot pain (Acute) Laceration of right foot (Acute) Subjective: Patient was seen today for follow up on bilateral foot/ankle. She was resting comfortably in bed watching a movie. She relates both right and left feet/ankles are painful. She has no new complaints, no complaints of fever, chills, nausea or vomiting. She is planning to go home day and stay with family. She states she is a big baby. She was going on about who she is thinking about suing her landlord. - Physical Exam General: Alert, Oriented x3, Cooperative, No apparent distress Extremities: No clubbing, No cyanosis, Capillary Refill Less than 3 Seconds, No Calf Tenderness, - - Left foot/ankle/leg with splint clean, dry and intact, no heel pain, patient able to wiggle toes with intact sensation, normal temperature and CFt < 2 seconds to all toes. Abrasions (superficial) medial dorsal right foot with no evidence of infection, healing, healthy and viable in appearance, no cellulitis, no fluctuance, no crepitus, no drainage, no maloder - these are superificial (down to dermal layer), no deep invovlement. She relates to diffuse right foot pain, poorly localized c/w contusion/sprain, there is no gross instability present, there is edema to the dorsal foot. There is no visible abscess or evidence of hematoma or compartment syndrome right foot, she is able to move toes, foot, and ankle right foot in all directions, although limited due to complaints of pain - better than last visit. She does relate to a numb sensation to foot, but appears sensation is intact to the right foot/ankle. Psych/Mental Status: Alert and oriented to time, place, person, mood and affect Vital Signs Temp Pulse Resp BP Pulse Ox 98.0 F 81 19 H 193/91 H 100 08/29/18 09:00 08/29/18 09:00 08/29/18 09:00 08/29/18 09:00 08/29/18 09:00 Oxygen Delivery Method Room Air Weight: 118.8 kg Body Mass Index (BMI) 44.9 Finger Stick Blood Glucose 198 Intake and Output for Last 24 Hours 08/27/18 08/28/18 08/29/18 23:59 23:59 23:59 Intake Total 2588 / 2588 2875 / 2875 Output Total 725 / 725 3500 / 3500 350 / 350 Balance 1863 / 1863 -625 / -625 -350 / -350 Laboratory Tests Past 24 Hrs 08/29/18 08/29/18 05:44 05:44 WBC 6.7 RBC 4.12 L Hgb 12.5 Hct 36.5 L MCV 88.6 MCH 30.3 MCHC 34.2 RDW 12.5 RDW Differential 40.4 Plt Count 273 MPV 10.9 Immature Gran % (Auto) 0.300 Neut % (Auto) 57.4 Lymph % (Auto) 28.3 [place] % (Auto) 7.6 Eos % (Auto) 5.5 H Baso % (Auto) 0.9 Absolute Neuts (auto) 3.9 Absolute Lymphs (auto) 1.91 Total Counted Not Reportable Sodium 142 Potassium 3.9 Chloride 109 H Carbon Dioxide 24.0 Anion Gap 9 BUN 8 Creatinine 0.67 Estim Creat Clear Calc 46.50 Est GFR (MDRD) Af Amer 113 Est GFR (MDRD) Non-Af 93 BUN/Creatinine Ratio 12.0 Glucose 187 H Calcium 8.7 POC Glucose 08/29/18 08/29/18 08/28/18 11:17 08:43 21:40 POC Glucose 156 H 177 H 207 H 08/28/18 16:49 POC Glucose 189 H Medical Necessity - Tobacco Use Smoking Status: Never smoker Tobacco Use: Non-smoker Assessment/Plan All Active Problems (Last Updated 08/27/18 @ 07:00 by Selam Bray DPM) Fall (Acute) Fracture of fibula, distal, left, closed (Acute) Nondisplaced fracture of lateral malleolus of left fibula, initial encounter for closed fracture (Acute) Right foot pain (Acute) Laceration of right foot (Acute) Nondisplaced closed left spiral oblique fibular fracture Contusion / Sprain right foot Right foot abrasion Continue with splint immobilization and nonweightbearing left foot/ankle. Continue with protected weightbearing as tolerated in CAM Walker right foot, keep foot protected in CAM Walker boot when up, ok to remove at rest. Keep bilateral feet elevated and heels offloaded. Low Vitamin D noted - 2000 units/day has been recommended to optimize bone healing. Cleansed right foot with normal saline solution, applied xeroform and gauze/greta dressing, change daily. Wound care instructions reviewed with patient and placed in d/c instructions for when patient goes home. Medical management, DVT prophylaxis and pain control per primary team is appreciated. Patient to follow up at [facility] in 1-2 weeks, sooner if needed. Please call if you have any questions.
[2018-08-29 15:42] VITALS: BP 193/87; PULSE 81; RESP 18; TEMP 36.7; O2SAT 98
--- NOTE | 2018-08-29 15:51 | PCM.DC.SUM ---
Discharge Date and Diagnosis Date of Admission: 08/26/18 Date of Discharge: 08/29/18 - Secondary Discharge Diagnosis Chronic Problems (Last Updated 08/27/18 @ 07:00 by Selam Bray DPM) Hypertension (Chronic) Dyslipidemia (Chronic) Chronic stable Asthma (Chronic) Hospital Course and Treatment Summary of Care Provided: [] The patient is a 68 year old F with multiple comorbidities as mentioned above was brought into ED after she fell while walking on the ice. She walks on cane, slipped and landed on buttocks with knees flexed. Her feet were trapped under buttock. Patient denies hitting her head, neck and no loss of consciousness. In ED, multiple x-rays were done shows fracture of distal left fibula. Fast Food Delivery Driver Dr. Ma is consulted [] 1. Fall with fracture of left distal fibula/lateral malleolus of ankle joint: The patient is being admitted on regular floor. Anti-inflammatory agent, ibuprofen and muscle relaxants ordered. Pain control, PT and OT. IV fluid normal saline for dehydration. Left lower leg below knee is under Nestor wrap bandage. Venous Doppler was done and was negative for acute DVT. Fluid was discontinued. Patient was seen by steward/stewardess second class, Dr. Ma and advised no weightbearing left foot and ankle and keep the splint and follow-up in the office in 1-2 weeks. 2. Diabetes mellitus type 2 with diabetic neuropathy: Patient said she had improvement in A1c recently with last A1c about 8 as an outpatient. Accu-Chek before meals and at bedtime cover with NovoLog sliding scale. Blood sugar is controlled. 3. Hypertension: Blood pressure was very high in the ED, 193/69, heart rate 76. Twelve-lead EKG normal sinus rhythm at 77 bpm, QRS 124 ms, LAD with LVH. Home medication continued. Amlodipine 10 mg 1 dose given blood pressure control 153/75. Blood pressure is controlled. No previous echo. The echo recommended as an outpatient. 4. Other comorbidities include dyslipidemia, morbid obesity, chronic stable asthma: This note was generated with [employer] software. Every effort was made to ensure accuracy, however computerized stogy roller mistakes may persist. Plan of management reviewed with the patient and she affirms understanding. In the morning on 08/28 patient agreed for SNF placement but later on family is arranging for DME in home and will go to son's home. Discharge medication reconciliation done. Discharge follow-up instructions completed. Discharge process discussed with the patient and all questions were answered to patient's satisfaction.. Prescription for lisinopril 40 mg daily and [place] 5/325, total 10 tablets were given. Total time spent, exact 35 minutes on discharge meds reconciliation, examination, review of imaging and blood test and discussion with the patient on follow-up instructions. Subjective: Seen and examined. Denies pain in the right lower leg. 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 Earlier a prescription for DME was given to renal case manager. Objective: General: Alert, Oriented x3, Cooperative HEENT: Atraumatic, PERRLA, EOMI, Normocephalic Neck: Supple, No JVD, Negative Carotid Bruits Lungs: Clear to auscultation, Normal air movement, No rhonchi, No wheeze, No rales Cardiovascular: Regular rate, Regular Rhythm, Normal S1, Normal S2, No murmurs Abdomen: Bowel Sounds Present, Soft, Non Tender Extremities: No edema, Capillary Refill Less than 3 Seconds Skin: No rashes, No breakdown Musculoskeletal: Arthritic Changes, Tenderness -No Tenderness in the right leg; resolved. Left leg Nestor wrap bandage Neurological: Cranial nerves II-XII grossly intact Psych/Mental Status: Normal Affect, Appropriate - Physical Exam Vital Signs Temp Pulse Resp BP Pulse Ox 98.1 F 81 18 193/87 H 98 08/29/18 15:42 08/29/18 15:42 08/29/18 15:42 08/29/18 15:42 08/29/18 15:42 Oxygen Delivery Method Room Air Weight: 261 lb 14.546 oz Body Mass Index (BMI) 44.9 Finger Stick Blood Glucose 198 Intake and Output for Last 24 Hours 08/27/18 08/28/18 08/29/18 23:59 23:59 23:59 Intake Total 2588 / 2588 2875 / 2875 550 / 550 Output Total 725 / 725 3500 / 3500 950 / 950 Balance 1863 / 1863 -625 / -625 -400 / -400 Laboratory Tests Past 24 Hrs 08/29/18 08/29/18 05:44 05:44 WBC 6.7 RBC 4.12 L Hgb 12.5 Hct 36.5 L MCV 88.6 MCH 30.3 MCHC 34.2 RDW 12.5 RDW Differential 40.4 Plt Count 273 MPV 10.9 Immature Gran % (Auto) 0.300 Neut % (Auto) 57.4 Lymph % (Auto) 28.3 [place] % (Auto) 7.6 Eos % (Auto) 5.5 H Baso % (Auto) 0.9 Absolute Neuts (auto) 3.9 Absolute Lymphs (auto) 1.91 Total Counted Not Reportable Sodium 142 Potassium 3.9 Chloride 109 H Carbon Dioxide 24.0 Anion Gap 9 BUN 8 Creatinine 0.67 Estim Creat Clear Calc 46.50 Est GFR (MDRD) Af Amer 113 Est GFR (MDRD) Non-Af 93 BUN/Creatinine Ratio 12.0 Glucose 187 H Calcium 8.7 POC Glucose 08/29/18 08/29/18 08/28/18 11:17 08:43 21:40 POC Glucose 156 H 177 H 207 H 08/28/18 16:49 POC Glucose 189 H Discharge Activity: May Not Drive Call your doctor if you observe: Fever of 101 or Higher, Numbness or Tingling, Shortness of breath, Fainting spells, Chest pain, Increased palpitations (irregular heartbeat), Uncontrolled pain Home Medications: Medications to take at Discharge Lamotrigine [Lamictal] 300 mg PO BID 12/19/13 Omeprazole [Prilosec] 20 mg PO BID 12/19/13 Simvastatin [Zocor] 40 mg PO QHS 12/19/13 Topiramate [Topamax] 50 mg PO BID 12/19/13 Albuterol Aerosols [Ventolin Aerosols] 2.5 mg INHALATION Q4H PRN PRN 05/09/14 Glucosam/Kiran-Msm1/C/Cricket/Bosw [Osteo Bi-Flex Caplet] 1 each PO BID 05/09/14 Insulin NPH Human [Humulin N Pen] 60 units SC DAILY@0730 05/09/14 Insulin Regular, Human [Novolin R] 20 unit SC BIDAC 05/09/14 Aspirin [Aspirin, Baby] 81 mg PO DAILY@0800 08/26/18 Budesonide/Formoterol 160/4.5 [Symbicort 160/4.5 Mcg Inhaler (SP)] 1 puff INHALATION BID 08/26/18 Ergocalciferol (Vitamin D2) [Drisdol] 50,000 unit PO QMONTH 08/26/18 Paroxetine HCl 30 mg PO DAILY 08/26/18 Phenobarbital 30 mg PO TID 08/26/18 Amlodipine [Norvasc] 10 mg PO DAILY #0 08/28/18 Cetirizine HCl [Zyrtec] 10 mg PO DAILY PRN PRN #0 08/28/18 Insulin NPH Human [Humulin N Pen] 35 units SC QHS #0 08/28/18 Tizanidine HCl [Zanaflex] 2 mg PO Q8H PRN PRN #20 tab 08/28/18 Hydrocodone Bitart/Apap 5-325 [[place] 5/325] 1 tab PO Q4H PRN PRN #10 tab 08/29/18 Lisinopril [Zestril] 40 mg PO DAILY #30 tab 08/29/18 Following Prescrptions Were Given to Patient: Hydrocodone Bitart/Apap 5-325 [[place] 5/325] 1 tab PO Q4H PRN PRN #10 tab PRN Reason: Pain Tizanidine HCl [Zanaflex] 2 mg PO Q8H PRN PRN #20 tab PRN Reason: muscle pain/spasm Lisinopril [Zestril] 40 mg PO DAILY #30 tab Primary Care Physician: Tavon Doctor,Out of [NON-STAFF] - Please follow up with your Primary Care Physician in: [place] in 1-2 week Please Follow Up With: Everton Ma DPM When: in 1-2 week Medical Necessity - Tobacco Use Smoking Status: Never smoker Tobacco Use: Non-smoker Meaningful Use Info Meaningful Use Diagnoses (Choose all that apply): None applicable Code Visit Inpatient E&M: 38411 Disch Hosp
--- NOTE | 2018-08-29 15:55 | DS.PCM_ITS ---
Discharge Date and Diagnosis Date of Admission: 08/26/18 Date of Discharge: 08/29/18 - Secondary Discharge Diagnosis Chronic Problems (Last Updated 08/27/18 @ 07:00 by Selam Bray DPM) Hypertension (Chronic) Dyslipidemia (Chronic) Chronic stable Asthma (Chronic) Hospital Course and Treatment Summary of Care Provided: [] The patient is a 68 year old F with multiple comorbidities as mentioned above was brought into ED after she fell while walking on the ice. She walks on cane, slipped and landed on buttocks with knees flexed. Her feet were trapped under buttock. Patient denies hitting her head, neck and no loss of consciousness. In ED, multiple x-rays were done shows fracture of distal left fibula. Textbook Associate Dr. Ma is consulted [] 1. Fall with fracture of left distal fibula/lateral malleolus of ankle joint: The patient is being admitted on regular floor. Anti-inflammatory agent, ibuprofen and muscle relaxants ordered. Pain control, PT and OT. IV fluid normal saline for dehydration. Left lower leg below knee is under Nestor wrap bandage. Venous Doppler was done and was negative for acute DVT. Fluid was discontinued. Patient was seen by captain waiter, Dr. Ma and advised no weightbearing left foot and ankle and keep the splint and follow-up in the office in 1-2 weeks. 2. Diabetes mellitus type 2 with diabetic neuropathy: Patient said she had improvement in A1c recently with last A1c about 8 as an outpatient. Accu-Chek before meals and at bedtime cover with NovoLog sliding scale. Blood sugar is controlled. 3. Hypertension: Blood pressure was very high in the ED, 193/69, heart rate 76. Twelve-lead EKG normal sinus rhythm at 77 bpm, QRS 124 ms, LAD with LVH. Home medication continued. Amlodipine 10 mg 1 dose given blood pressure control 1 53/75. Blood pressure is controlled. No previous echo. The echo recommended as an outpatient. 4. Other comorbidities include dyslipidemia, morbid obesity, chronic stable asthma: This note was generated with [employer] software. Every effort was made to ensure accuracy, however computerized poultry killer mistakes may persist. Plan of management reviewed with the patient and she affirms understanding. In the morning on 08/28 patient agreed for SNF placement but later on family is arranging for DME in home and will go to son's home. Discharge medication reconciliation done. Discharge follow-up instructions completed. Discharge process discussed with the patient and all questions were answered to patient's satisfaction.. Prescription for lisinopril 40 mg daily and [place] 5/325, total 10 tablets were given. Total time spent, exact 35 minutes on discharge meds reconciliation, examination, review of imaging and blood test and discussion with the patient on follow-up instructions. Subjective: Seen and examined. Denies pain in the right lower leg. 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 Earlier a prescription for DME was given to showcase maker. Objective: General: Alert, Oriented x3, Cooperative HEENT: Atraumatic, PERRLA, EOMI, Normocephalic Neck: Supple, No JVD, Negative Carotid Bruits Lungs: Clear to auscultation, Normal air movement, No rhonchi, No wheeze, No rales Cardiovascular: Regular rate, Regular Rhythm, Normal S1, Normal S2, No murmurs Abdomen: Bowel Sounds Present, Soft, Non Tender Extremities: No edema, Capillary Refill Less than 3 Seconds Skin: No rashes, No breakdown Musculoskeletal: Arthritic Changes, Tenderness -No Tenderness in the right leg; resolved. Left leg Nestor wrap bandage Neurological: Cranial nerves II-XII grossly intact Psych/Mental Status: Normal Affect, Appropriate - Physical Exam Vital Signs Temp Pulse Resp BP Pulse Ox 98.1 F 81 18 193/87 H 98 08/29/18 15:42 08/29/18 15:42 08/29/18 15:42 08/29/18 15:42 08/29/18 15:42 Oxygen Delivery Method Room Air Weight: 261 lb 14.546 oz Body Mass Index (BMI) 44.9 Finger Stick Blood Glucose 198 Intake and Output for Last 24 Hours 08/27/18 08/28/18 08/29/18 23:59 23:59 23:59 Intake Total 2588 / 2588 2875 / 2875 550 / 550 Output Total 725 / 725 3500 / 3500 950 / 950 Balance 1863 / 1863 -625 / -625 -400 / -400 Laboratory Tests Past 24 Hrs 08/29/18 08/29/18 05:44 05:44 WBC 6.7 RBC 4.12 L Hgb 12.5 Hct 36.5 L MCV 88.6 MCH 30.3 MCHC 34.2 RDW 12.5 RDW Differential 40.4 Plt Count 273 MPV 10.9 Immature Gran % (Auto) 0.300 Neut % (Auto) 57.4 Lymph % (Auto) 28.3 [place] % (Auto) 7.6 Eos % (Auto) 5.5 H Baso % (Auto) 0.9 Absolute Neuts (auto) 3.9 Absolute Lymphs (auto) 1.91 Total Counted Not Reportable Sodium 142 Potassium 3.9 Chloride 109 H Carbon Dioxide 24.0 Anion Gap 9 BUN 8 Creatinine 0.67 Estim Creat Clear Calc 46.50 Est GFR (MDRD) Af Amer 113 Est GFR (MDRD) Non-Af 93 BUN/Creatinine Ratio 12.0 Glucose 187 H Calcium 8.7 POC Glucose 08/29/18 08/29/18 08/28/18 11:17 08:43 21:40 POC Glucose 156 H 177 H 207 H 08/28/18 16:49 POC Glucose 189 H Discharge Activity: May Not Drive Call your doctor if you observe: Fever of 101 or Higher, Numbness or Tingling, Shortness of breath, Fainting spells, Chest pain, Increased palpitations (irregular heartbeat), Uncontrolled pain Home Medications: Medications to take at Discharge Lamotrigine [Lamictal] 300 mg PO BID 12/19/13 Omeprazole [Prilosec] 20 mg PO BID 12/19/13 Simvastatin [Zocor] 40 mg PO QHS 12/19/13 Topiramate [Topamax] 50 mg PO BID 12/19/13 Albuterol Aerosols [Ventolin Aerosols] 2.5 mg INHALATION Q4H PRN PRN 05/09/14 Glucosam/[place]iran-Msm1/C/Cricket/Bosw [Osteo Bi-Flex Caplet] 1 each PO BID 05/09/14 Insulin NPH Human [Humulin N Pen] 60 units SC DAILY@0730 05/09/14 Insulin Regular, Human [Novolin R] 20 unit SC BIDAC 05/09/14 Aspirin [Aspirin, Baby] 81 mg PO DAILY@0800 08/26/18 Budesonide/Formoterol 160/4.5 [Symbicort 160/4.5 Mcg Inhaler (SP)] 1 puff INHALATION BID 08/26/18 Ergocalciferol (Vitamin D2) [Drisdol] 50,000 unit PO QMONTH 08/26/18 Paroxetine HCl 30 mg PO DAILY 08/26/18 Phenobarbital 30 mg PO TID 08/26/18 Amlodipine [Norvasc] 10 mg PO DAILY #0 08/28/18 Cetirizine HCl [Zyrtec] 10 mg PO DAILY PRN PRN #0 08/28/18 Insulin NPH Human [Humulin N Pen] 35 units SC QHS #0 08/28/18 Tizanidine HCl [Zanaflex] 2 mg PO Q8H PRN PRN #20 tab 08/28/18 Hydrocodone Bitart/Apap 5-325 [[place] 5/325] 1 tab PO Q4H PRN PRN #10 tab 08/29/18 Lisinopril [Zestril] 40 mg PO DAILY #30 tab 08/29/18 Following Prescrptions Were Given to Patient: Hydrocodone Bitart/Apap 5-325 [[place] 5/325] 1 tab PO Q4H PRN PRN #10 tab PRN Reason: Pain Tizanidine HCl [Zanaflex] 2 mg PO Q8H PRN PRN #20 tab PRN Reason: muscle pain/spasm Lisinopril [Zestril] 40 mg PO DAILY #30 tab Primary Care Physician: Tavon Doctor,Out of [NON-STAFF] - Please follow up with your Primary Care Physician in: [place] in 1-2 week Please Follow Up With: Everton Ma DPM When: in 1-2 week Medical Necessity - Tobacco Use Smoking Status: Never smoker Tobacco Use: Non-smoker Meaningful Use Info Meaningful Use Diagnoses (Choose all that apply): None applicable Code Visit Inpatient E&M: 38251 Disch Hosp
--- NOTE | 2018-09-01 15:12 | CASEMGMT ---
JUNIOR MORROW DC PHONE CALL DC DATE:08/29/18 DC DISPOSITION: Home with Family LACE/STRATA: 06/14 DC APPOINTMENTS: pt to make on dc Call to number listed. Phone was not functioning. Call to son Miguel Ángel Morales who stated pt was doing well, no questions re: instructions. Family is assisting pt with care needs and transportation. JUNIOR MORROW notified son that pt's phone was not working. Number was verified. He states he will let pt know. F/U appts will be made by pt and daughter. No further questions at this time. Aristeo DUFFYN RN ACM
== END 2018-08-29 15:47 | disposition home or self-care (01) | DRG 563 ==
LOC: ED 09:34 → MS3 12:56
PROVIDERS: Podiatrist; Admitting Provider Internal Medicine; Emergency Provider Emergency Medicine; Visit Provider Internal Medicine
DX: S82.832A Other fracture of upper and lower end of left fibula, initial encounter for closed fracture (principal); Z68.41 Body mass index [BMI] 40.0-44.9, adult; W00.0XXA Fall on same level due to ice and snow, initial encounter; Y93.01 Activity, walking, marching and hiking; I10 Essential (primary) hypertension; E78.5 Hyperlipidemia, unspecified; J45.909 Unspecified asthma, uncomplicated; E11.40 Type 2 diabetes mellitus with diabetic neuropathy, unspecified; E66.01 Morbid (severe) obesity due to excess calories; Z79.4 Long term (current) use of insulin; S90.811A Abrasion, right foot, initial encounter
CPT/HCPCS: 36415; 72100; 72170; 73560; 73610; 73630; 80048; 82306; 82550; 82962; 85025; 93005; 93970; 94640; 97161; 97166; 97530; 97802; 99284; J7030; A4216; J2405

== ENCOUNTER 2018-09-10 16:53 | Emergency (ER) | payer OTHER, SELFPAY ==
[2018-08-26 13:09] VITALS: BMI 44.9
[2018-09-10 16:56] VITALS: BP 214/107; PULSE 89; PULSE 93; RESP 17; RESP 18; TEMP 36.6; O2SAT 97; BMI 44.9
[2018-09-10] MEDS: Ondansetron 4 MG/2 ML Vial IV (17:35)
[2018-09-10 17:56] LABS: Absolute Lymphocyte Count 2.41 X10^3/ul (0.83-4.51); Absolute Neutrophil Count 4.4 X10^3/uL (2.0-7.7); Basophil# 0.12 X10^3/uL; Basophil% 1.5 % (0-1); Eosinophil# 0.46 X10^3/uL; Eosinophils% 5.7 % (0-5); Hematocrit 37.5 % (37-47); Hemoglobin 13.1 g/dl (12.0-15.0); Lymphocyte # 2.41 X10^3/ul (4.0); Mean Corp Hgb Conc 34.9 g/gl (32-36); Mean Corpuscular Hgb 30.3 pg (27.0-32.0); Mean Corpuscular Volume 86.8 fL (81-99); Mean Platelet Vol. 10.8 fl (6.2-12.0); Monocyte# 0.58 X10^3/uL; Monocyte% 7.2 % (0-10); Neutrophil # 4.44 X10^3/uL (2.7-7.7); Neutrophil % 55.4 % (47-70); POSITIVE COUNT NO; POSITIVE DIFFERENTIAL NO; POSITIVE MORPHOLOGY NO; Platelet Count 390 K/mm3 (150-450); RBC Distribution Width CV 12.4 % (11.6-14.6); RBC Distribution Width SD 38.3 fl (35.1-43.9); Red Blood Count 4.32 M/mm3 (4.2-5.4)
[2018-09-10 18:09] LABS: Anion Gap 9 (5-15); BUN 11 mg/dL (7-18); BUN/Creat Ratio 13.8 RATIO (10-20); Calcium,Total 8.6 mg/dL (8.5-10.1); Chloride 107 mmol/L (98-107); EST Glomerular Filtration Rate 76 mL/min (>60); Est Glom Filt Rate - Afr Amer 92 mL/min (>60); Estimated Creatinine Clearance 60.56 ml/min; Glucose 221 mg/dL (74-106); Potassium 3.6 mmol/L (3.5-5.1); Sodium Level 140 mmol/L (136-145)
--- NOTE | 2018-09-10 18:19 | ED.VISSUMM ---
- ER Visit Summary Date of Service: 09/10/18 Chief Complaint: Left leg pain History of Present Illness: The patient is a 68 F who presents with left leg pain that became worse today. Patient describes her pain as burning. Patient states it is over the anterior aspect of her left leg. Patient was in a posterior splint due to a ankle fracture. Patient is concerned over possible DVT. Patient denies any paresthesias or weakness. Patient denies any new injury or trauma. Physical Examination: Vital signs are stable except for an elevated blood pressure of 214/107. Patient is afebrile. Patient is in no acute distress. Musculoskeletal exam reveals some mild tenderness over the left ankle. There is also mild tenderness of the left anterior lower leg. Posterior splint is intact. Sensation was intact to light touch in all digits. Capillary refill is less than 2 seconds in all digits. Pulses are equal bilaterally. The remaining physical exam is within normal limits. Test Results: CBC, basic metabolic profile, and d-dimer were obtained and were all essentially within normal limits. Glucose was mildly elevated at 221. Emergency Department Course and Treatment: Patient was instructed to keep her left leg elevated. Patient was instructed to follow-up with her orthopedic surgeon and primary care physician as scheduled. Patient understood and was agreeable with the plan. All questions were answered. Disposition: Discharge home Impression: Left leg pain This note was generated with [employer] dictation software. It may contain incorrect words, spelling, and punctuation that were not noted in review of the chart prior to signing ED Disposition - Plan for ED Patient: Disposition: Home or Assisted Living Diagnosis: Fracture of fibula, distal, left, closed, Pain in left leg Instructions: ED Fx Ankle Lateral Malleolus, ED Splint Care Fiberglass Referrals: [facility] Doctor,Out of [NON-STAFF] -
--- NOTE | 2018-09-10 18:24 | ED.DCSUM_ITS ---
- ER Visit Summary Date of Service: 09/10/18 Chief Complaint: Left leg pain History of Present Illness: The patient is a 68 F who presents with left leg pain that became worse today. Patient describes her pain as burning. Patient states it is over the anterior aspect of her left leg. Patient was in a pos terior splint due to a ankle fracture. Patient is concerned over possible DVT. Patient denies any paresthesias or weakness. Patient denies any new injury or trauma. Physical Examination: Vital signs are stable except for an elevated blood pressure of 214/107. Patient is afebrile. Patient is in no acute distress. Musculoskeletal exam reveals some mild tenderness over the left ankle. There is also mild tenderness of the left anterior lower leg. Posterior splint is intact. Sensation was intact to light touch in all digits. Capillary refill is less than 2 seconds in all digits. Pulses are equal bilaterally. The remaining physical exam is within normal limits. Test Results: CBC, basic metabolic profile, and d-dimer were obtained and were a ll essentially within normal limits. Glucose was mildly elevated at 221. Emergency Department Course and Treatment: Patient was instructed to keep her left leg elevated. Patient was instructed to follow-up with her orthopedic surgeon and primary care physician as scheduled. Patient understood and was agreeable with the plan. All questions were answered. Disposition: Discharge home Impression: Left leg pain This note was generated with [employer] dictation software. It may contain incorrect words, spelling, and punctuation that were not noted in review of the chart prior to signing ED Disposition - Plan for ED Patient: Disposition: Home or Assisted Living Diagnosis: Fracture of fibula, distal, left, closed, Pain in left leg Instructions: ED Fx Ankle Lateral Malleolus, ED Splint Care Fiberglass Referrals: [facility] Doctor,Out of [NON-STAFF] -
[2018-09-10 18:48] VITALS: BP 167/76; PULSE 83; RESP 19; O2SAT 95
== END 2018-09-10 19:30 | disposition home or self-care (01) ==
PROVIDERS: Emergency Provider Emergency Medicine
DX: M79.605 Pain in left leg (principal); J02.9 Acute pharyngitis, unspecified; H92.01 Otalgia, right ear; E11.9 Type 2 diabetes mellitus without complications; I10 Essential (primary) hypertension; Z79.4 Long term (current) use of insulin; G40.909 Epilepsy, unspecified, not intractable, without status epilepticus; J45.909 Unspecified asthma, uncomplicated
CPT/HCPCS: 80048; 85025; 85379; 96374; 99285; A4216; J2405

== ENCOUNTER 2020-07-09 21:59 | Inpatient (IN) | payer OTHER, SELFPAY ==
[2020-07-09 22:00] VITALS: BP 165/71; PULSE 77; RESP 20; TEMP 36.6; O2SAT 98; BMI 46.5
--- NOTE | 2020-07-09 22:12 | ED.VIS.GEN ---
History of Present Illness Chief Complaint: Upper Extremity Injury Informant: Patient Onset: Today Current Severity: Moderate Maximum Severity: Severe Narrative: Patient presents after mechanical fall complaining of right shoulder pain. She states she tripped on something and fell onto her right shoulder as it was tucked against her side. Patient denies striking her head or loss of consciousness. She complaining of severe pain between her shoulder and elbow on the right with occasional spasms. She denies paresthesias. - Past Medical History (1) Chronic stable Asthma Status: Chronic (2) Dyslipidemia Status: Chronic (3) Hypertension Status: Chronic (4) Diabetes mellitus type 2 in obese Status: Chronic Past Medical History - Allergies and Home Meds Allergies/Adverse Reactions: Allergies ciprofloxacin Allergy (Verified 09/10/18 16:55) Unknown hydrochlorothiazide Allergy (Verified 09/10/18 16:55) Unknown pentazocine [From Talwin] Allergy (Verified 09/10/18 16:55) Unknown Primary Care Physician: [facility] [Primary Care Provider] - Prior records reviewed: Yes Lives: Alone Smoking Status: Never smoker - Family History Paternal Family History: Reports: No pertinent history Review of Systems General: Denies: Chills, Fever Eyes: Denies: Visual changes - bilaterally ENT: Denies: Bilateral ear pain Cardiovascular: Denies: Chest pain Respiratory: Denies: Dyspnea, Cough Gastrointestinal: Denies: Abdominal pain, Vomiting, Diarrhea Musculoskeletal: Reports: Extremity Pain Skin: Denies: Rash, Wounds Neurological: Denies: Parasthesia Hematologic: Denies: Easy bruising, Easy bleeding Allergy: Denies: Uticaria Physical Exam Vital Signs/Narrative: Vital Signs Temp Pulse Resp BP Pulse Ox 07/09/20 22:00 97.8 F 77 20 H 165/71 H 98 Inital Vital Signs reviewed: Yes General: Well nourished, Well developed Head: Normocephalic ENT: Moist mucous membranes Neck: Supple Cardiovascular: Regular rate, Regular rhythm Respiratory: No distress, CTA bilaterally Abdomen: Soft, Nontender Extremities: - - Diffuse tenderness throughout the right shoulder and humerus. No obvious deformity. Strong distal pulses. Strong hand grasp on the right. Normal sensation. Neurological: Alert, Oriented x3 Psychological: - - Anxious Diagnostic/Tx/Re-eval Impressions Humerus X-Ray 07/09/20 23:00 IMPRESSION: 1. Displaced fracture of the right humeral surgical neck. 2. Suboptimal visualization of the right shoulder and recommend formal right shoulder x-ray exam to assess for additional right humeral head fracture. 3. Intact distal right humerus and overall limited views, likely portable views. at 2347 Reported and signed by: Jimenez Bosch MD Electronically Signed: Jimenez Bosch, at 23:46 EST Tel , Service support , Laboratory Results 07/09/20 07/09/20 22:30 22:30 WBC 8.5 RBC 4.60 Hgb 13.5 Hct 40.1 MCV 87.2 MCH 29.3 MCHC 33.7 RDW Std Deviation 40.0 RDW Coeff of Linda 12.5 Plt Count 308 MPV 10.3 Immature Gran % (Auto) 0.400 Neut % (Auto) 62.0 Lymph % (Auto) 25.6 [place] % (Auto) 6.1 Eos % (Auto) 4.6 Baso % (Auto) 1.3 H Absolute Neuts (auto) 5.3 Absolute Lymphs (auto) 2.18 Nucleated RBC % 0 Sodium 136 Potassium 3.4 L Chloride 105 Carbon Dioxide 22.0 Anion Gap 9 BUN 10 Creatinine 0.90 Estim Creat Clear Calc 54.45 Est GFR (MDRD) Af Amer 79 Est GFR (MDRD) Non-Af 65 BUN/Creatinine Ratio 11.1 Glucose 373 H Calcium 8.5 - Medical Decision Making Patient was given morphine and Zofran for pain. Due to continued pain she received a dose of fentanyl at this time. Humerus x-rays reveal a surgical neck fracture with 100% displacement. There is a questionable fracture through the humeral head as well. Patient and family feel that she may need rehab or placement as she does live alone. I did speak with orthopedics who recommended a CT of her shoulder to further evaluate. She states patient could be seen outpatient as well. I will speak with hospitalist regarding admission. ED Disposition - Plan for ED Patient: Disposition: Home or Assisted Living Diagnosis: Proximal humerus fracture [facility] [[facility] Provider] -
[2020-07-09] MEDS: Morphine 4 MG/ML Syringe IV (22:33)
[2020-07-09] MEDS: Ondansetron 4 MG/2 ML Vial IV (22:34)
[2020-07-09 22:39] LABS: Absolute Lymphocyte Count 2.18 X10^3/uL (0.83-4.51); Absolute Neutrophil Count 5.3 X10^3/uL (2.0-7.7); Basophil# 0.11 X10^3/uL; Basophil% 1.3 % (0-1); Eosinophil# 0.39 X10^3/uL; Eosinophils% 4.6 % (0-5); Hematocrit 40.1 % (37-47); Hemoglobin 13.5 g/dL (12.0-15.0); Lymphocyte # 2.18 X10^3/ul (4.0); Lymphocyte % 25.6 % (19-41); Mean Corp Hgb Conc 33.7 g/dL (32-36); Mean Corpuscular Hgb 29.3 pg (27.0-32.0); Mean Corpuscular Volume 87.2 fL (81-99); Mean Platelet Vol. 10.3 fl (6.2-12.0); Monocyte# 0.52 X10^3/uL; Monocyte% 6.1 % (0-10); NRBC Flagged by Analyzer 0 % (0-5); Neutrophil # 5.28 X10^3/uL (2.7-7.7); Platelet Count 308 K/mm3 (150-450); RBC Distribution Width CV 12.5 % (11.6-14.6); White Blood Count 8.5 K/mm3 (4.4-11.0)
[2020-07-09 22:51] LABS: Anion Gap 9 (5-15); BUN 10 mg/dL (7-18); BUN/Creat Ratio 11.1 RATIO (10-20); Calcium,Total 8.5 mg/dL (8.5-10.1); Chloride 105 mmol/L (98-107); EST Glomerular Filtration Rate 65 mL/min (>60); Est Glom Filt Rate - Afr Amer 79 mL/min (>60); Estimated Creatinine Clearance 54.45 ml/min; Glucose 373 mg/dL (74-106); Potassium 3.4 mmol/L (3.5-5.1); Sodium Level 136 mmol/L (136-145)
--- NOTE | 2020-07-09 23:00 | RAD_ITS ---
HISTORY: FALL, PAIN EXAMINATION/TECHNIQUE: XR right humerus 2 views COMPARISON: None FINDINGS: Routine x-ray positioning not performed and the exam is likely a portable. Transverse fracture of the right humeral surgical neck and with anterior displacement of the distal fracture fragment. Suboptimal visualization of the right shoulder and the right humeral neck fracture may be overriding. Poor visualization of the right humeral head and associated right humeral head fracture is not excluded. The distal right humerus appears intact. No dislocation of the shoulder or right elbow identified. RAD/Humerus min 2 Views IMPRESSION: 1. Displaced fracture of the right humeral surgical neck. 2. Suboptimal visualization of the right shoulder and recommend formal right shoulder x-ray exam to assess for additional right humeral head fracture. 3. Intact distal right humerus and overall limited views, likely portable views. at 2347 Reported and signed by: Jimenez Bosch MD Electronically Signed: Jimenez Bosch, at 23:46 EST Tel , Service support ,
[2020-07-09 23:42] VITALS: BP 157/72; PULSE 71; RESP 26; O2SAT 94
[2020-07-09] MEDS: fentaNYL 100 MCG/2 ML Ampul 25 MCG IV (23:59)
[2020-07-10] VITALS (10 sets, daily range): BP systolic 134–166; BP diastolic 65–86; PULSE 72–92; RESP 9–26; TEMP 36.3–37; O2SAT 92–98; BMI 43.1; BMI 43.2
--- NOTE | 2020-07-10 00:04 | PCM.HP.STD ---
Problem List (1) Shoulder fracture, right Status: Acute (2) Hypertension Status: Chronic (3) Diabetes mellitus type 2 in obese Status: Chronic (4) Fall Status: Acute (5) Fracture of fibula, distal, left, closed Status: Inactive (6) Dyslipidemia Status: Chronic (7) Chronic stable Asthma Status: Chronic (8) Nondisplaced fracture of lateral malleolus of left fibula, initial encounter for closed fracture Status: Inactive (9) Right foot pain Status: Inactive (10) Laceration of right foot Status: Inactive (11) Proximal humerus fracture Status: Acute History of Present Illness Date of Admission: 07/10/20 Chief Complaint: Fall with right shoulder pain The patient is a 70 year old F with a significant history of asthma; hypertension; hyperlipidemia; diabetes mellitus; and seizure disorder who presents to the emergency department with a fall. She fell and landed on her right shoulder. She thinks she tripped. She reports excruciating pain in her right shoulder. Past Medical History Past Medical History (Chronic Problems): Chronic Problems (Last Reviewed 07/10/20 @ 04:[address] Ranjeet Richardson MD) Hypertension (Chronic) Diabetes mellitus type 2 in obese (Chronic) Dyslipidemia (Chronic) Chronic stable Asthma (Chronic) Medical History: Medical History (Last Reviewed 07/10/20 @ 04:[address] Ranjeet Richardson MD) Diabetes mellitus E11.9 Diabetes mellitus E11.9 Allergies ciprofloxacin Allergy (Verified 09/10/18 16:55) Unknown hydrochlorothiazide Allergy (Verified 09/10/18 16:55) Unknown pentazocine [From Talwin] Allergy (Verified 09/10/18 16:55) Unknown Home Medications: Ambulatory Orders Medication Instructions Recorded Omeprazole [Prilosec] 20 mg PO BID 12/19/13 Simvastatin [Zocor] 40 mg PO QHS 12/19/13 Topiramate [Topamax] 50 mg PO BID 12/19/13 Albuterol Aerosols [Ventolin 2.5 mg INHALATION Q4H PRN PRN 05/09/14 Aerosols] Glucosam/Kiran-Msm1/C/Cricket/Bosw 1 each PO BID 05/09/14 [Osteo Bi-Flex Caplet] Insulin NPH Human [Humulin N Pen] 60 units SC DAILY@0730 05/09/14 Insulin Regular, Human [Novolin R] 20 unit SC BIDAC 05/09/14 Aspirin [Aspirin, Baby] 81 mg PO DAILY@0800 08/26/18 Budesonide/Formoterol 160/4.5 1 puff INHALATION BID 08/26/18 [Symbicort 160/4.5 Mcg Inhaler (SP)] Paroxetine HCl 30 mg PO DAILY 08/26/18 Phenobarbital 30 mg PO TID 08/26/18 Amlodipine [Norvasc] 10 mg PO DAILY #0 08/28/18 Cetirizine HCl [Zyrtec] 10 mg PO DAILY PRN PRN #0 08/28/18 Tizanidine HCl [Zanaflex] 2 mg PO Q8H PRN PRN #20 tab 08/28/18 Insulin NPH Human [Humulin N Pen] 40 units SC QHS 07/10/20 Lamotrigine BID 07/10/20 Vitamin D3 1 tab PO DAILY 07/10/20 Surgical History: cholecystectomy, hysterectomy, - - 2 c-sections Lives: Alone Smoking Status: Never smoker - *Family History Paternal History Items: Cancer Maternal History Items: Cancer Review of Systems Constitutional: Denies: Chills, Fever, Weight Change HEENT: Denies: Head Aches, Sinus Congestion, Sinus Drainage Cardiovascular: Denies: Chest Pain, Palpitations Respiratory: Denies: Cough, Shortness of breath at rest, Sputum production Gastrointestinal: Denies: Abdominal Pain, Nausea, Vomiting Genitourinary: Denies: Dysuria Musculoskeletal: Reports: Joint Pain - Right shoulder, Joint Tenderness Skin: Denies: Rash, Wounds Neurological: Denies: Numbness, Tingling, Focal weakness Psychiatric: Denies: Anxiety, Depression, Homicidal Ideations, Suicidal Ideations Hematologic/ Lymphatic: Denies: Easy Bruising, Easy Bleeding VTE Information - Inpt Only VTE Present on Admission: No VTE Mechan Device Prophylaxis: SCD's VTE Pharm Prophylaxis ordered?: No Patient Problems: Active and Suspected Problems (Last Reviewed 07/10/20 @ 04:[address] Ranjeet Richardson MD) Proximal humerus fracture (Acute) Shoulder fracture, right (Acute) - Physical Exam Vitals/I&O's: Vital Signs Temp Pulse Resp BP Pulse Ox 97.8 F 71 26 H 157/72 H 94 07/09/20 22:00 07/09/20 23:42 07/09/20 23:42 07/09/20 23:42 07/09/20 23:42 Oxygen Delivery Method Room Air Weight: 130.7 kg Body Mass Index (BMI) 46.5 Finger Stick Blood Glucose 198 General: Alert, Oriented x3, Cooperative HEENT: Atraumatic, PERRLA, EOMI, Normocephalic Neck: Supple, No JVD, Negative Carotid Bruits Lungs: Clear to auscultation, Normal air movement Cardiovascular: Regular rate, Normal S1, Normal S2, No murmurs Abdomen: Bowel Sounds Present, Soft, Non Tender Extremities: No edema, Capillary Refill Less than 3 Seconds, Tenderness - Right shoulder, - - Right shoulder in sling. Skin: No rashes, No breakdown Musculoskeletal: No Tenderness to Palpation of Joints or Extremities Neurological: Cranial nerves II-XII grossly intact Psych/Mental Status: Normal Affect, Appropriate Laboratory Results 07/09/20 22:30: WBC 8.5, RBC 4.60, Hgb 13.5, Hct 40.1, MCV 87.2, MCH 29.3, MCHC 33.7, RDW Std Deviation 40.0, RDW Coeff of Linda 12.5, Plt Count 308, MPV 10.3, Immature Gran % (Auto) 0.400, Neut % (Auto) 62.0, Lymph % (Auto) 25.6, [place] % (Auto) 6.1, Eos % (Auto) 4.6, Baso % (Auto) 1.3 H, Absolute Neuts (auto) 5.3, Absolute Lymphs (auto) 2.18, Nucleated RBC % 0 07/09/20 22:30: Sodium 136, Potassium 3.4 L, Chloride 105, Carbon Dioxide 22.0, Anion Gap 9, BUN 10, Creatinine 0.90, Estim Creat Clear Calc 54.45, Est GFR (MDRD) Af Amer 79, Est GFR (MDRD) Non-Af 65, BUN/Creatinine Ratio 11.1, Glucose 373 H, Calcium 8.5 Assessment/Plan All Active Problems (Last Reviewed 07/10/20 @ 04:[address] Ranjeet Richardson MD) Fall (Acute) Proximal humerus fracture (Acute) Shoulder fracture, right (Acute) Fall with right displaced humeral fracture Radiologist impression of humerus x-ray: Displaced fracture of the right humeral surgical neck. Actual humerus x-ray was independently interpreted. I agree with radiologist interpretation. Emergent department doctor discussed the case with orthopedic surgeon litigation paralegal who recommend that a CT scan be obtained; pain control and patient can follow-up outpatient. Oxycodone prn for pain. Bowel protocol and antiemetics in place. Diabetes mellitus Patient with hyperglycemia presentation Adjust home basal and prandial insulin. Add correction scale insulin. DVT prophylaxis SCD for now. If CT scan does not show any bleed consider starting patient on a chemical thromboprophylaxis. OBSV E&M: [id number] Initial observation care L3
[2020-07-10] MEDS: Loratadine 10 MG Tablet PO (02:22)
[2020-07-10] MEDS: tiZANidine HCl 2 MG Tablet PO (02:23)
[2020-07-10] MEDS: oxyCODONE 5 MG Tablet 10 MG PO (02:23)
[2020-07-10 02:53] LABS: Anion Gap 7 (5-15); BUN 12 mg/dL (7-18); BUN/Creat Ratio 14.2 RATIO (10-20); Calcium,Total 8.6 mg/dL (8.5-10.1); Chloride 106 mmol/L (98-107); Creatinine, Serum 0.85 mg/dL (0.55-1.02); EST Glomerular Filtration Rate 71 mL/min (>60); Est Glom Filt Rate - Afr Amer 85 mL/min (>60); Estimated Creatinine Clearance 57.65 ml/min; Glucose 262 mg/dL (74-106); Potassium 3.6 mmol/L (3.5-5.1); Sodium Level 138 mmol/L (136-145)
[2020-07-10 02:59] LABS: Vitamin D,25 Hydroxy 36.3 ng/mL
[2020-07-10] MEDS: 0.9% Saline Lock 10 ML Syringe IV ×2 (05:24→16:37)
[2020-07-10] MEDS: Morphine 2 MG/ML Syringe IV (05:24)
[2020-07-10] MEDS: Phenobarbital 32.4 MG Tablet PO ×3 (05:24→21:59)
[2020-07-10] MEDS: Budesonide Respules 0.5 MG/2 ML AMPUL.NEB. INHALATION ×2 (07:37→20:45)
[2020-07-10] MEDS: Albuterol 2.5 MG/3 ML VIAL.NEB. INHALATION ×3 (07:37→20:45)
[2020-07-10] MEDS: fentaNYL 100 MCG/2 ML Ampul 25 MCG IV (09:01)
[2020-07-10] MEDS: Insulin NPH Human 100 UNITS/ML PEN 70 UNITS SC (09:07)
[2020-07-10] MEDS: Aspirin 81 MG TAB.CHEW PO (09:09)
[2020-07-10] MEDS: amLODIPine 10 MG Tablet PO (09:09)
[2020-07-10] MEDS: Pantoprazole Sodium 20 MG Tablet PO ×2 (09:09)
[2020-07-10] MEDS: Senna/Docusate Sodium 1 Tablet PO ×2 (09:09→21:59)
[2020-07-10] MEDS: Topiramate 50 MG Tablet PO ×2 (09:10→22:09)
[2020-07-10] MEDS: PARoxetine 10 MG Tablet 30 MG PO (09:12)
[2020-07-10] MEDS: Insulin Lispro 100 UNIT/ML INSULN.PEN SC ×3 (09:17→22:03)
[2020-07-10] MEDS: Insulin Lispro 100 UNIT/ML INSULN.PEN 12 UNIT SC ×2 (09:18→17:58)
[2020-07-10 09:36] LABS: Bedside Glucose 271 mg/dL (70-110)
[2020-07-10 11:26] LABS: Bedside Glucose 206 mg/dL (70-110)
[2020-07-10] MEDS: Morphine 4 MG/ML Syringe IV (11:26)
--- NOTE | 2020-07-10 11:39 | CON.PCM_ITS ---
Reason for Consult Date of Consultation: 07/10/20 Reason for Consultation: right shoulder pain History of Present Illness: The patient is a 70 year old F who tripped and fell onto her right shoulder. Patient has multiple medical comorbidities. She had x-ray of her proximal humerus that showed a fracture and Ortho was consulted. Patient was admitted to the fact that she has uncontrollable pain and lives by herself and has no one to take care of her if she was to go home. Pain localized only to her right shoulder no numbness tingling fever chills or other issues. Patient is an uncontrolled diabetic and her sugars usually run in the 300s. Patient denies shortness of breath head pain trauma nausea vomiting dizziness or other constitutional symptoms. Pain localized to right shoulder only. [] Past Medical History Past Medical History (Chronic Problems): Chronic Problems (Last Reviewed 07/10/20 @ 04:[address] Ranjeet Richardson MD) Hypertension (Chronic) Diabetes mellitus type 2 in obese (Chronic) Dyslipidemia (Chronic) Chronic stable Asthma (Chronic) Medical History: Medical History (Last Reviewed 07/10/20 @ 04:[address] Ranjeet Richardson MD) Diabetes mellitus E11.9 Diabetes mellitus E11.9 Allergies ciprofloxacin Allergy (Verified 09/10/18 16:55) Unknown hydrochlorothiazide Allergy (Verified 09/10/18 16:55) Unknown pentazocine [From Talwin] Allergy (Verified 09/10/18 16:55) Unknown lamotrigine [From Lamictal] Adverse Reaction (Verified 07/10/20 00:28) Nausea Home Medications: Ambulatory Orders Medication Instructions Recorded Omeprazole [Prilosec] 20 mg PO BID 12/19/13 Simvastatin [Zocor] 40 mg PO QHS 12/19/13 Topiramate [Topamax] 50 mg PO BID 12/19/13 Albuterol Aerosols [Ventolin 2.5 mg INHALATION Q4H PRN PRN 05/09/14 Aerosols] Glucosam/Kiran-Msm1/C/Cricket/Bosw 1 each PO BID 05/09/14 [Osteo Bi-Flex Caplet] Insulin NPH Human [Humulin N Pen] 60 units SC DAILY@0730 05/09/14 Insulin Regular, Human [Novolin R] 20 unit SC BIDAC 05/09/14 Aspirin [Aspirin, Baby] 81 mg PO DAILY@0800 01/15/19 Budesonide/Formoterol 160/4.5 1 puff INHALATION BID 08/26/18 [Symbicort 160/4.5 Mcg Inhaler (SP)] Paroxetine HCl 30 mg PO DAILY 08/26/18 Phenobarbital 30 mg PO TID 08/26/18 Amlodipine [Norvasc] 10 mg PO DAILY #0 08/28/18 Cetirizine HCl [Zyrtec] 10 mg PO DAILY PRN PRN #0 08/28/18 Tizanidine HCl [Zanaflex] 2 mg PO Q8H PRN PRN #20 tab 08/28/18 Insulin NPH Human [Humulin N Pen] 40 units SC QHS 07/10/20 Lamotrigine 300 mg PO BID 07/10/20 Vitamin D3 1 tab PO DAILY 07/10/20 Lidocaine [Lidoderm Patch] 2 patch TOPICAL DAILY patch 07/15/20 cycloBENZAPRine HCl 5 mg PO TID PRN PRN tab 07/15/20 [Cyclobenzaprine HCl] Surgical History: cholecystectomy, hysterectomy, - - 2 c-sections Lives: Alone Smoking Status: Never smoker - *Family History Paternal History Items: Cancer Maternal History Items: Cancer Review of Systems Constitutional: Denies: Chills, Fever, Weight Change HEENT: Denies: Head Aches, Sinus Congestion, Sinus Drainage Cardiovascular: Denies: Chest Pain, Palpitations Respiratory: Denies: Cough, Shortness of breath at rest, Sputum production Gastrointestinal: Denies: Abdominal Pain, Nausea, Vomiting Genitourinary: Denies: Dysuria Musculoskeletal: Reports: Joint Pain, Joint Tenderness - right shoulder only, sec survery neg Skin: Denies: Rash, Wounds Neurological: Denies: Numbness, Tingling, Focal weakness Psychiatric: Denies: Anxiety, Depression, Homicidal Ideations, Suicidal Ideations Hematologic/ Lymphatic: Denies: Easy Bruising, Easy Bleeding Patient Problems: Active and Suspected Problems (Last Reviewed 07/10/20 @ 04:[address] Ranjeet Richardson MD) Fall (Acute) Proximal humerus fracture (Acute) Shoulder fracture, right (Acute) - Physical Exam Vitals/I&O's: Vital Signs Temp Pulse Resp BP Pulse Ox 97.9 F 77 9 L 154/68 H 98 07/10/20 05:04 07/10/20 07:38 07/10/20 07:38 07/10/20 05:04 07/10/20 07:38 Oxygen Delivery Method Room Air Weight: 267 lb 6.731 oz Body Mass Index (BMI) 43.1 Finger Stick Blood Glucose 198 Intake and Output for Last 24 Hours 07/08/20 07/09/20 07/10/20 23:59 23:59 23:59 Intake Total 1000 / 1000 Output Total 225 / 225 Balance 775 / 775 General: Alert, Oriented x3, Cooperative HEENT: Atraumatic, PERRLA, EOMI, Normocephalic Neck: Supple, No JVD, Negative Carotid Bruits Lungs: Clear to auscultation, Normal air movement Cardiovascular: Regular rate, No murmurs Abdomen: Bowel Sounds Present, Soft, Non Tender Extremities: No edema, Capillary Refill Less than 3 Seconds Skin: No rashes, No breakdown Musculoskeletal: Tenderness - sec survey negative, neuro intact med/uln/rad nerves, rad pulse, arom/prom intact of /wrist/fingers Neurological: Cranial nerves II-XII grossly intact Psych/Mental Status: Normal Affect, Appropriate Laboratory Results 07/09/20 22:30: WBC 8.5, RBC 4.60, Hgb 13.5, Hct 40.1, MCV 87.2, MCH 29.3, MCHC 33.7, RDW Std Deviation 40.0, RDW Coeff of Linda 12.5, Plt Count 308, MPV 10.3, Immature Gran % (Auto) 0.400, Neut % (Auto) 62.0, Lymph % (Auto) 25.6, [place] % (Auto) 6.1, Eos % (Auto) 4.6, Baso % (Auto) 1.3 H, Absolute Neuts (auto) 5.3, Absolute Lymphs (auto) 2.18, Nucleated RBC % 0 07/09/20 22:30: Sodium 136, Potassium 3.4 L, Chloride 105, Carbon Dioxide 22.0, Anion Gap 9, BUN 10, Creatinine 0.90, Estim Creat Clear Calc 54.45, Est GFR (MDRD) Af Amer 79, Est GFR (MDRD) Non-Af 65, BUN/Creatinine Ratio 11.1, Glucose 373 H, Calcium 8.5 07/10/20 02:21: Vitamin D 25-Hydroxy 36.3 07/10/20 02:21: Sodium 138, Potassium 3.6, Chloride 106, Carbon Dioxide 25.0, Anion Gap 7, BUN 12, Creatinine 0.85, Estim Creat Clear Calc 57.65, Est GFR (MDRD) Af Amer 85, Est GFR (MDRD) Non-Af 71, BUN/Creatinine Ratio 14.2, Glucose 262 H, Calcium 8.6 07/10/20 09:05: POC Glucose 271 H 07/10/20 11:20: POC Glucose 206 H Current Medications Acetaminophen (Acetaminophen 325 Mg Tablet) 650 mg PO Q6H PRN PRN PRN Reason: Pain Score 1-10/Temp > 100.7 F Albuterol Sulfate (Albuterol 2.5 Mg/3 Ml Vial.Neb.) 2.5 mg INHALATION Q4H PRN PRN PRN Reason: sob/Wheezing Albuterol Sulfate (Albuterol 2.5 Mg/3 Ml Vial.Neb.) 2.5 mg INHALATION Q6HWA.RT [facility] Last Admin: 07/10/20 07:37 Dose: 2.5 mg Documented by: Amlodipine Besylate (Amlodipine 10 Mg Tablet) 10 mg PO DAILY [facility] Last Admin: 07/10/20 09:09 Dose: 10 mg Documented by: Aspirin (Aspirin 81 Mg Tab.Chew) 81 mg PO DAILY@0800 [facility] Last Admin: 07/10/20 09:09 Dose: 81 mg Documented by: Atorvastatin Calcium (Atorvastatin Calcium 20 Mg Tablet) 20 mg PO QHS [facility] Budesonide (Budesonide Respules 0.5 Mg/2 Ml Ampul.Neb.) 0.5 mg INHALATION Q12H.RT [facility] Last Admin: 07/10/20 07:37 Dose: 0.5 mg Documented by: Cholecalciferol (Cholecalciferol (Vit D3) 1,000 Unit (25mcg)) 1,000 unit PO DAILY [facility] Last Admin: 07/10/20 11:25 Dose: 1,000 unit Documented by: Dextrose (Dextrose 50%-Water 25 Gm/50 Ml Disp.Syrin) 0 gm IV X1 PRN; Protocol PRN Reason: Hypoglycemia Glucagon (Glucagon 1 Mg/Ml Syringe) 1 mg IM .X1 PRN PRN Reason: Hypoglycemia Insulin Human Lispro (Insulin Lispro 100 Unit/Ml Insuln.Pen) 0 unit SC ACHS [facility]; Protocol Last Admin: 07/10/20 09:17 Dose: 4 u Documented by: Insulin Human Lispro (Insulin Lispro 100 Unit/Ml Insuln.Pen) 12 unit SC TIDAC [facility] Last Admin: 07/10/20 09:18 Dose: 12 u Documented by: Insulin Human NPH (Insulin Nph Human 100 Units/Ml Pen) 70 units SC DAILY@0700 [facility] Last Admin: 07/10/20 09:07 Dose: 70 u Documented by: Insulin Human NPH (Insulin Nph Human 100 Units/Ml Pen) 50 units SC QHS [facility] Loratadine (Loratadine 10 Mg Tablet) 10 mg PO DAILY PRN PRN PRN Reason: NASAL Allergy/congestion Last Admin: 07/10/20 02:22 Dose: 10 mg Documented by: Melatonin (Melatonin 3 Mg Tablet) 3 mg PO QHS PRN PRN PRN Reason: INSOMNIA Morphine Sulfate (Morphine 4 Mg/Ml Syringe) 4 mg IV Q3H PRN PRN PRN Reason: Pain Score 6-10 Last Admin: 07/10/20 11:26 Dose: 4 mg Documented by: Ondansetron HCl (Ondansetron 4 Mg/2 Ml Vial) 4 mg IV Q8H PRN PRN PRN Reason: NAUSEA/VOMITING Oxycodone HCl (Oxycodone 5 Mg Tablet) 10 mg PO Q4H PRN PRN PRN Reason: Pain Score 4-5 Last Admin: 07/10/20 02:23 Dose: 10 mg Documented by: Pantoprazole Sodium (Pantoprazole Sodium 20 Mg Tablet) 20 mg PO BID [facility] Last Admin: 07/10/20 09:09 Dose: 20 mg Documented by: Paroxetine HCl (Paroxetine 10 Mg Tablet) 30 mg PO DAILY [facility] Last Admin: 07/10/20 09:12 Dose: 30 mg Documented by: Phenobarbital (Phenobarbital 32.4 Mg Tablet) 32.4 mg PO TID [facility] Last Admin: 07/10/20 05:24 Dose: 32.4 mg Documented by: Senna/Docusate Sodium (Senna/Docusate Sodium 1 Tablet) 1 tablet PO BID [facility] Last Admin: 07/10/20 09:09 Dose: 1 tablet Documented by: Sodium Chloride (0.9% Saline Lock 10 Ml Syringe) 10 - 40 ml IV UD PRN PRN Reason: SALINE FLUSH Last Admin: 07/10/20 05:24 Dose: 10 ml Documented by: Tizanidine HCl (Tizanidine Hcl 2 Mg Tablet) 2 mg PO Q8H PRN PRN PRN Reason: muscle pain/spasm Last Admin: 07/10/20 02:23 Dose: 2 mg Documented by: Topiramate (Topiramate 50 Mg Tablet) 50 mg PO BID [facility] Last Admin: 07/10/20 09:10 Dose: 50 mg Documented by: Assessment/Plan All Active Problems (Last Reviewed 07/10/20 @ 04:[address] Ranjeet Richardson MD) Fall (Acute) Proximal humerus fracture (Acute) Shoulder fracture, right (Acute) Right proximal humerus fracture Discussed over with patient risk benefits alternatives are discussed the patient. Risk include but not limited to blood loss, blood clot, infection, neurovascular, failure procedure, loss of life and loss of limb. She has a high risk for infection as she has uncontrolled diabetes. Discussed with Dr. Flores as well and she will get patient teed up for surgical intervention possibly Saturday or Saturday Patient is unable to go home and she lives by herself and she is having too much pain so she will be here and either transferred to TCU or go straight for the floor to the OR once we ascertain what is the best data to get her into the OR schedule. This was all discussed with patient her pain is controlled Appreciate medicine input N.p.o. when OR the following day at this time is either Saturday or Saturday rene lewis Please call To go with any questions [phone] reviewed note is that she had quite thin osteopenic bone and doubt a plate would be sufficient to maintain reduction of her fracture and she would be a better candidate due to her medical issues as well as bone quality to have a reverse total shoulder. I did discuss the case with Dr. Majnarrez who agreed to take over care of patient and will see as an outpatient in his office. This was discussed at length with the patient as well as well as providers. Again patient will be transferred to Dr. Richard for a reverse total shoulder arthroplasty at a later date. Call with concerns
[2020-07-10] MEDS: Ondansetron 4 MG/2 ML Vial IV ×2 (11:42→19:27)
--- NOTE | 2020-07-10 13:20 | EKG12_ITS ---
Test Reason : PRE OP Blood Pressure : / mmHG Vent. Rate : 080 BPM Atrial Rate : 080 BPM P-R Int : 218 ms QRS Dur : 126 ms QT Int : 452 ms P-R-T Axes : 052 -67 084 degrees QTc Int : 521 ms Sinus rhythm with 1st degree A-V block Left axis deviation Left ventricular hypertrophy with QRS widening and repolarization abnormality Abnormal ECG Confirmed by BECCA ALEJANDRO, GEOVANNA ([id number]), image editor CELINA RODRIGUES ([id number]) on 07/13/2020 9:56:21 AM Referred By: AQUILES Confirmed By:GEOVANNA HUDSON MD
--- NOTE | 2020-07-10 16:08 | PCM.PN.BLA ---
Progress Note Patient was seen and examined. She complains of severe pain in her. Morphine is not working. Tried fentanyl. CT of the right upper arm reviewed independently. Discussed with orthopedic surgery Patient will be going for surgery on Saturday/Saturday Her ACS NSQIP risk calculator is above average for cardiac complications and serious complications EKG shows normal sinus rhythm, no acute ST-T changes Patient denies any active cardiac complaints We will consult cardiology for pre-op risk stratification STROKE Vital Signs/Narrative: Vital Signs Pulse Resp 07/10/20 13:22 79 9 L
[2020-07-10] MEDS: HYDROmorphone 1 MG/ML Syringe IV ×2 (16:37→21:56)
[2020-07-10] MEDS: Lidocaine 5% Patch 2 PATCH TOPICAL (16:37)
[2020-07-10 18:31] LABS: Bedside Glucose 272 mg/dL (70-110)
--- NOTE | 2020-07-10 19:12 | CON.PCM_ITS ---
Problem List (1) Fall Status: Acute Reason for Consult Date of Consultation: 07/10/20 Reason for Consultation: Preop cardiac clearance History of Present Illness: The patient is a 70 year old F referred for preop cardiac clearance. Patient tripped and fell yesterday. Instantaneously she had excruciating pain in the right shoulder. She could not get up from the ground. Ambulance pick her up from the street and was admitted for fracture of the right shoulder. Patient denies any history of myocardial infarct or CVA. Before 2 years ago patient was able to do anything she wants to do. She fell 2 years ago and broke her left ankle. Since then, she has had problem walking. She lives alone. Her son and daughter helped her to do most of the heavy chores and shopping. She is known to have hypertension, diabetes, hyperlipidemia and obesity. She has been on insulin. She is a non-smoker and nondrinker. EKG showed chronic intraventricular conduction delay unchanged since 2014 [] Past Medical History Allergies/Adverse Reactions: Allergies ciprofloxacin Allergy (Verified 09/10/18 16:55) Unknown hydrochlorothiazide Allergy (Verified 09/10/18 16:55) Unknown pentazocine [From Talwin] Allergy (Verified 09/10/18 16:55) Unknown lamotrigine [From Lamictal] Adverse Reaction (Verified 07/10/20 00:28) Nausea Home Medications: Ambulatory Orders Medication Instructions Recorded Omeprazole [Prilosec] 20 mg PO BID 12/19/13 Simvastatin [Zocor] 40 mg PO QHS 12/19/13 Topiramate [Topamax] 50 mg PO BID 12/19/13 Albuterol Aerosols [Ventolin 2.5 mg INHALATION Q4H PRN PRN 05/09/14 Aerosols] Glucosam/Kiran-Msm1/C/Cricket/Bosw 1 each PO BID 05/09/14 [Osteo Bi-Flex Caplet] Insulin NPH Human [Humulin N Pen] 60 units SC DAILY@0730 05/09/14 Insulin Regular, Human [Novolin R] 20 unit SC BIDAC 05/09/14 Aspirin [Aspirin, Baby] 81 mg PO DAILY@0800 08/26/18 Budesonide/Formoterol 160/4.5 1 puff INHALATION BID 08/26/18 [Symbicort 160/4.5 Mcg Inhaler (SP)] Paroxetine HCl 30 mg PO DAILY 08/26/18 Phenobarbital 30 mg PO TID 08/26/18 Amlodipine [Norvasc] 10 mg PO DAILY #0 08/28/18 Cetirizine HCl [Zyrtec] 10 mg PO DAILY PRN PRN #0 08/28/18 Tizanidine HCl [Zanaflex] 2 mg PO Q8H PRN PRN #20 tab 08/28/18 Insulin NPH Human [Humulin N Pen] 40 units SC QHS 07/10/20 Lamotrigine BID 07/10/20 Vitamin D3 1 tab PO DAILY 07/10/20 Past Medical History (Chronic Problems): Chronic Problems (Last Reviewed 07/10/20 @ 04:[address] Ranjeet Richardson MD) Hypertension (Chronic) Diabetes mellitus type 2 in obese (Chronic) Dyslipidemia (Chronic) Chronic stable Asthma (Chronic) Surgical History: cholecystectomy, hysterectomy, - - 2 c-sections - *Family History Paternal History Items: Cancer Maternal History Items: Cancer Lives: Alone Smoking Status: Never smoker Review of Systems - Review of Systems General: Reports: Weakness Cardiovascular: Denies: Chest Discomfort, Shortness of Breath, Orthopnea, PND, Peripheral Edema, Palpitations, Lightheadedness, Dizziness, Near Syncope, Syncope Respiratory: Denies: Cough, Sputum Production, Hemoptysis Gastrointestinal: Denies: Hematemesis, Hematochezia, Melena Neurological: Denies: Dizziness, Vertigo, History of TIA, History of CVA Objective: Vital Signs Temp Pulse Resp BP Pulse Ox 97.4 F L 82 18 148/80 H 92 07/10/20 18:39 07/10/20 18:39 07/10/20 18:39 07/10/20 18:39 07/10/20 18:39 Oxygen Delivery Method Room Air Weight: 267 lb 6.731 oz Body Mass Index (BMI) 43.1 Finger Stick Blood Glucose 198 Intake and Output for Last 24 Hours 07/08/20 07/09/20 07/10/20 23:59 23:59 23:59 Intake Total 1999 Output Total 675 / 675 Balance 1325 / 1325 General: Awake, Alert, Oriented x 3, Cooperative, Obese, - - Excruciating right shoulder pain on minimal movement of the right arm HEENT: Atraumatic Neck: Supple Lungs: Clear to auscultation Cardiovascular: Regular Rhythm, No Murmurs - Heart sounds distant Vascular: No Carotid Bruits Abdomen: Bowel Sounds Present, Soft, Non Tender, No HSM, No Organomegaly, Obese Neurological: No Focal Motor or Sensory Deficit 07/09/20 22:30: WBC 8.5, RBC 4.60, Hgb 13.5, Hct 40.1, MCV 87.2, MCH 29.3, MCHC 33.7, Plt Count 308, MPV 10.3, Immature Gran % (Auto) 0.400, Neut % (Auto) 62.0, Lymph % (Auto) 25.6, [place] % (Auto) 6.1, Eos % (Auto) 4.6, Baso % (Auto) 1.3 H, Absolute Neuts (auto) 5.3, Nucleated RBC % 0 07/09/20 22:30: Sodium 136, Potassium 3.4 L, Chloride 105, Carbon Dioxide 22.0, Anion Gap 9, BUN 10, Creatinine 0.90, Est GFR (MDRD) Af Amer 79, Est GFR (MDRD) Non-Af 65, BUN/Creatinine Ratio 11.1, Glucose 373 H, Calcium 8.5 07/10/20 02:21: Sodium 138, Potassium 3.6, Chloride 106, Carbon Dioxide 25.0, Anion Gap 7, BUN 12, Creatinine 0.85, Est GFR (MDRD) Af Amer 85, Est GFR (MDRD) Non-Af 71, BUN/Creatinine Ratio 14.2, Glucose 262 H, Calcium 8.6 Rhythm: EKG: ECHO: Stress Test: Cardiac Cath: PCI: CT Surgery: Holter monitor: EPS: PPM: CXR: Chest CT Scan: Assessment/Plan #1 fracture of the right shoulder from accidental fall without syncopal episode, she does have history of hypertension, diabetes on insulin and hyperlipidemia. Her revised cardiac risk index is one-point, class II risk with 6% 30 days risk of , myocardial infarct or cardiac arrest. This is considered to be low risk. Patient understands the risk and willing to proceed with the surgery. Echocardiogram will be ordered tomorrow to assess left ventricular function. If echocardiogram showed poor ejection fraction or other abnormality, surgical risk will be reassessed at that time
--- NOTE | 2020-07-10 19:22 | ECHOCS_ITS ---
Reason For Study: PRE OPERATIVE Procedure This was a 2D Doppler, Color Flow transthoracic echocardiogram. The study was technically limited. The study was technically difficult. Due to right shoulder fracture, unable to reposition patient due to pain. Contrast injection was performed. Exam performed portable in patient room. Left Ventricle Normal LV size. Moderate concentric left ventricular hypertrophy. Left ventricular systolic function is normal. The estimated ejection fraction is 65 %. No regional wall motion abnormalities noted. Mitral Valve Mitral valve not well visualized. Tricuspid Valve The tricuspid valve is not well visualized. Aortic Valve The aortic valve is not well visualized. Pericardium/Pleural No pericardial effusion. Medication Diluted definity 5.0ml given slow IV push to enhance endocardial definition. MMode/2D Measurements & Calculations Ao root diam: 3.4 cm LAV(MOD-sp4): 37.8 ml LA A4 area: 15.6 cm2 LA dimension(2D): 3.5 cm Doppler Measurements & Calculations MV E max kiara: 79.6 cm/sec Ao V2 max: 135.6 cm/sec LV V1 max: 91.4 cm/sec MV A max kiara: 157.1 cm/sec Ao max P.4 mmHg LV V1 max P.3 mmHg MV E/A: 0.51 PA V2 max: 130.3 cm/sec Interpretation Summary Normal LV size. Moderate concentric left ventricular hypertrophy. Left ventricular systolic function is normal. The estimated ejection fraction is 65 %. Contrast injection was performed. Ordering Physician: Camilo Ramos Referring Physician: [facility] Performed By: Karlene Hatfield RDCS, RVT
[2020-07-10 19:25] LABS: Bedside Glucose 192 mg/dL (70-110)
[2020-07-10] MEDS: Atorvastatin Calcium 20 MG Tablet PO (21:59)
[2020-07-10] MEDS: Insulin NPH Human 100 UNITS/ML PEN 50 UNITS SC (22:02)
[2020-07-10 22:15] LABS: Bedside Glucose 222 mg/dL (70-110)
--- NOTE | 2020-07-10 23:56 | CT_ITS ---
HISTORY: RT SHOULDER PAIN AFTER A FALL,FRACTURE RT HUMERUSHX:ASTHMA,DIABETES,HTN EXAMINATION: CT right shoulder W/O Contrast Injection TECHNIQUE: Helically acquired images were obtained of the right shoulder. 2-D reformats were performed by the technologist. A radiation dose optimization technique was used for this scan. IV Contrast dosage and agent: None COMPARISON: Right humerus 07/09/2020 FINDINGS: Comminuted fracture of the right humeral head and neck. The main component of the fracture is a transverse fracture of the humeral surgical neck and with fracture displacement and overriding of fracture fragments. The major distal humeral fragment shows approximately 4 cm of proximal displacement together with anterior and medial displacement. The distal fracture fragment abuts the right subcoracoid region. The right humeral head is not dislocated and shows clockwise rotation and accompanied by prominent valgus angular deformity of the distal humerus. Nondisplaced fracture of the superior lateral right humeral head. The bicipital groove appears intact. The scapula and right glenoid appear intact. The right AC joint is preserved and not widened. No pneumothorax. Visualized right ribs appear intact. CT/Extremity Upper without Contra IMPRESSION: Right humeral head and neck comminuted, displaced fracture with valgus deformity. Details above. Individualized dose optimization techniques were used for this CT. at 0202 Reported and signed by: Jimenez Bosch MD Electronically Signed: Jimenez Bosch, at 2:00 EST Tel , Service support ,
[2020-07-11] VITALS (9 sets, daily range): BP systolic 154–173; BP diastolic 67–78; PULSE 79–98; RESP 18–20; TEMP 36.4–36.7; O2SAT 93–96
[2020-07-11] MEDS: HYDROmorphone 1 MG/ML Syringe IV ×2 (01:57→08:09)
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
[2020-07-11] MEDS: Phenobarbital 32.4 MG Tablet PO ×3 (06:16→21:26)
[2020-07-11] MEDS: oxyCODONE 5 MG Tablet 10 MG PO (06:16)
[2020-07-11] MEDS: Budesonide Respules 0.5 MG/2 ML AMPUL.NEB. INHALATION ×2 (07:08→20:26)
[2020-07-11] MEDS: Albuterol 2.5 MG/3 ML VIAL.NEB. INHALATION ×2 (07:08→20:26)
[2020-07-11] MEDS: Aspirin 81 MG TAB.CHEW PO (08:10)
[2020-07-11] MEDS: Topiramate 50 MG Tablet PO ×2 (08:10→21:29)
[2020-07-11] MEDS: Senna/Docusate Sodium 1 Tablet PO ×2 (08:10→21:27)
[2020-07-11] MEDS: amLODIPine 10 MG Tablet PO (08:10)
[2020-07-11] MEDS: Pantoprazole Sodium 20 MG Tablet PO ×2 (08:10→21:28)
[2020-07-11] MEDS: PARoxetine 10 MG Tablet 30 MG PO (08:10)
[2020-07-11] MEDS: 0.9% Saline Lock 10 ML Syringe IV (08:11)
[2020-07-11] MEDS: Insulin Lispro 100 UNIT/ML INSULN.PEN SC ×4 (08:18→21:23)
[2020-07-11] MEDS: Lidocaine 5% Patch 2 PATCH TOPICAL (08:18)
[2020-07-11] MEDS: Insulin Lispro 100 UNIT/ML INSULN.PEN 12 UNIT SC ×2 (08:19→16:44)
[2020-07-11] MEDS: Insulin NPH Human 100 UNITS/ML PEN 70 UNITS SC (08:20)
[2020-07-11 08:36] LABS: Bedside Glucose 272 mg/dL (70-110)
[2020-07-11 11:30] LABS: Bedside Glucose 235 mg/dL (70-110)
[2020-07-11] MEDS: Acetaminophen 325 MG Tablet 650 MG PO ×2 (14:35→21:26)
[2020-07-11 16:51] LABS: Bedside Glucose 243 mg/dL (70-110)
--- NOTE | 2020-07-11 17:16 | PCM.PN.HOSP ---
Patient Problems: Active and Suspected Problems (Last Reviewed 07/10/20 @ 04:[address] Ranjeet Richardson MD) Fall (Acute) Proximal humerus fracture (Acute) Shoulder fracture, right (Acute) Reason for Visit: Follow-up on acute right comminuted humeral fracture Subjective: Patient was seen and examined. Her pain is fairly controlled. No acute events overnight. Going for surgery tomorrow or Saturday Objective: Physical exam: General: Alert, Oriented x3, Cooperative HEENT: Atraumatic, PERRLA, EOMI, Normocephalic Neck: Supple, No JVD, Negative Carotid Bruits Lungs: Clear to auscultation, Normal air movement Cardiovascular: Regular rate, Normal S1, Normal S2, No murmurs Abdomen: Bowel Sounds Present, Soft, Non Tender Extremities: No edema, Capillary Refill Less than 3 Seconds, Tenderness - Right shoulder, - - Right shoulder in sling. Skin: No rashes, No breakdown Musculoskeletal: No Tenderness to Palpation of Joints or Extremities Neurological: Cranial nerves II-XII grossly intact Psych/Mental Status: Normal Affect, Appropriate Vitals/I&O's: Vital Signs Temp Pulse Resp BP Pulse Ox 97.6 F L 94 18 168/78 H 93 07/11/20 14:30 07/11/20 14:30 07/11/20 14:30 07/11/20 14:30 07/11/20 14:30 Oxygen Flow Rate (L/min) 2 Oxygen Delivery Method Room Air Weight: 121.3 kg Body Mass Index (BMI) 43.1 Finger Stick Blood Glucose 198 Intake and Output for Last 24 Hours 07/09/20 07/10/20 07/11/20 23:59 23:59 23:59 Intake Total 1999 / 2250 1150 / 1150 Output Total 675 / 1425 900 / 900 Balance 1325 / 825 250 / 250 Laboratory Results 07/10/20 17:56: POC Glucose 272 H 07/10/20 19:21: POC Glucose 192 H 07/10/20 21:47: POC Glucose 222 H 07/11/20 08:17: POC Glucose 272 H 07/11/20 11:25: POC Glucose 235 H 07/11/20 16:42: POC Glucose 243 H Current Medications Acetaminophen (Acetaminophen 325 Mg Tablet) 650 mg PO Q6H PRN PRN PRN Reason: Pain Score 1-10/Temp > 100.7 F Last Admin: 07/11/20 14:35 Dose: 650 mg Documented by: Albuterol Sulfate (Albuterol 2.5 Mg/3 Ml Vial.Neb.) 2.5 mg INHALATION Q4H PRN PRN PRN Reason: sob/Wheezing Albuterol Sulfate (Albuterol 2.5 Mg/3 Ml Vial.Neb.) 2.5 mg INHALATION Q6HWA.RT [facility] Last Admin: 07/11/20 07:08 Dose: 2.5 mg Documented by: Amlodipine Besylate (Amlodipine 10 Mg Tablet) 10 mg PO DAILY [facility] Last Admin: 07/11/20 08:10 Dose: 10 mg Documented by: Aspirin (Aspirin 81 Mg Tab.Chew) 81 mg PO DAILY@0800 [facility] Last Admin: 07/11/20 08:10 Dose: 81 mg Documented by: Atorvastatin Calcium (Atorvastatin Calcium 20 Mg Tablet) 20 mg PO QHS [facility] Last Admin: 07/10/20 21:59 Dose: 20 mg Documented by: Budesonide (Budesonide Respules 0.5 Mg/2 Ml Ampul.Neb.) 0.5 mg INHALATION Q12H.RT [facility] Last Admin: 07/11/20 07:08 Dose: 0.5 mg Documented by: Cholecalciferol (Cholecalciferol (Vit D3) 1,000 Unit (25mcg)) 1,000 unit PO DAILY [facility] Last Admin: 07/11/20 08:15 Dose: 1,000 unit Documented by: Dextrose (Dextrose 50%-Water 25 Gm/50 Ml Disp.Syrin) 0 gm IV X1 PRN; Protocol PRN Reason: Hypoglycemia Glucagon (Glucagon 1 Mg/Ml Syringe) 1 mg IM .X1 PRN PRN Reason: Hypoglycemia Hydromorphone HCl (Hydromorphone 1 Mg/Ml Syringe) 1 mg IV Q4H PRN PRN PRN Reason: Pain Score 6-10 Last Admin: 07/11/20 08:09 Dose: 1 mg Documented by: Insulin Human Lispro (Insulin Lispro 100 Unit/Ml Insuln.Pen) 0 unit SC ACHS [facility]; Protocol Last Admin: 07/11/20 16:44 Dose: 4 u Documented by: Insulin Human Lispro (Insulin Lispro 100 Unit/Ml Insuln.Pen) 12 unit SC TIDAC [facility] Last Admin: 07/11/20 16:44 Dose: 12 u Documented by: Insulin Human NPH (Insulin Nph Human 100 Units/Ml Pen) 70 units SC DAILY@0700 [facility] Last Admin: 07/11/20 08:20 Dose: 70 u Documented by: Insulin Human NPH (Insulin Nph Human 100 Units/Ml Pen) 50 units SC QHS [facility] Last Admin: 07/10/20 22:02 Dose: 50 u Documented by: Lidocaine (Lidocaine 5% Patch) 2 patch TOPICAL DAILY [facility]; Protocol Last Admin: 07/11/20 08:18 Dose: 2 patch Documented by: Loratadine (Loratadine 10 Mg Tablet) 10 mg PO DAILY PRN PRN PRN Reason: NASAL Allergy/congestion Last Admin: 07/10/20 02:22 Dose: 10 mg Documented by: Melatonin (Melatonin 3 Mg Tablet) 3 mg PO QHS PRN PRN PRN Reason: INSOMNIA Ondansetron HCl (Ondansetron 4 Mg/2 Ml Vial) 4 mg IV Q8H PRN PRN PRN Reason: NAUSEA/VOMITING Last Admin: 07/10/20 19:27 Dose: 4 mg Documented by: Oxycodone HCl (Oxycodone 5 Mg Tablet) 10 mg PO Q4H PRN PRN PRN Reason: Pain Score 4-5 Last Admin: 07/11/20 06:16 Dose: 10 mg Documented by: Pantoprazole Sodium (Pantoprazole Sodium 20 Mg Tablet) 20 mg PO BID [facility] Last Admin: 07/11/20 08:10 Dose: 20 mg Documented by: Paroxetine HCl (Paroxetine 10 Mg Tablet) 30 mg PO DAILY [facility] Last Admin: 07/11/20 08:10 Dose: 30 mg Documented by: Phenobarbital (Phenobarbital 32.4 Mg Tablet) 32.4 mg PO TID [facility] Last Admin: 07/11/20 14:31 Dose: 32.4 mg Documented by: Senna/Docusate Sodium (Senna/Docusate Sodium 1 Tablet) 1 tablet PO BID [facility] Last Admin: 07/11/20 08:10 Dose: 1 tablet Documented by: Sodium Chloride (0.9% Saline Lock 10 Ml Syringe) 10 - 40 ml IV UD PRN PRN Reason: SALINE FLUSH Last Admin: 07/11/20 08:11 Dose: 10 ml Documented by: Tizanidine HCl (Tizanidine Hcl 2 Mg Tablet) 2 mg PO Q8H PRN PRN PRN Reason: muscle pain/spasm Last Admin: 07/10/20 02:23 Dose: 2 mg Documented by: Topiramate (Topiramate 50 Mg Tablet) 50 mg PO BID [facility] Last Admin: 07/11/20 08:10 Dose: 50 mg Documented by: STROKE Vital Signs/Narrative: Vital Signs Temp Pulse Resp BP Pulse Ox 07/11/20 14:30 97.6 F L 94 18 168/78 H 93 Medical Necessity - Tobacco Use Smoking Status: Never smoker Assessment/Plan All Active Problems (Last Reviewed 07/10/20 @ 04:[address] Ranjeet Richardson MD) Fall (Acute) Proximal humerus fracture (Acute) Shoulder fracture, right (Acute) 1. Acute right humeral head and neck comminuted, displaced fracture with valgus deformity Pain is fairly controlled, orthopedic surgery consulted; pain for surgery tomorrow Patient's risk score on the ACS NSQIP score was above average, cardiology consulted -patient at low risk for planned procedure 2. Hypoxia secondary to atelectasis, resolved 3. Hypertension, controlled, continue on amlodipine 4. Seizure disorder, on Topamax, Zanaflex, phenobarbital 5. Type II DM, insulin-dependent, continue on home insulin 6. Morbid obesity, BMI 43.2, lifestyle modification recommended 7. DVT PPx- Lovenox BID Inpatient E&M: 35675 Subs Hosp L2
[2020-07-11] MEDS: tiZANidine HCl 2 MG Tablet PO (19:54)
[2020-07-11] MEDS: Insulin NPH Human 100 UNITS/ML PEN 50 UNITS SC (21:25)
[2020-07-11] MEDS: MELATONIN 3 MG TABLET PO (21:26)
[2020-07-11] MEDS: Atorvastatin Calcium 20 MG Tablet PO (21:29)
[2020-07-11] MEDS: Enoxaparin 40 MG/0.4 ML Syringe SC (21:38)
[2020-07-11 21:45] LABS: Bedside Glucose 296 mg/dL (70-110)
[2020-07-12] VITALS (8 sets, daily range): BP systolic 158–176; BP diastolic 70–83; PULSE 80–103; RESP 18–19; TEMP 36.4–36.9; O2SAT 94–95
[2020-07-12] MEDS: LORazepam 0.5 MG Tablet PO ×2 (01:02→21:41)
[2020-07-12] MEDS: tiZANidine HCl 2 MG Tablet PO ×2 (05:24→21:41)
[2020-07-12] MEDS: Acetaminophen 325 MG Tablet 650 MG PO (05:24)
[2020-07-12 06:17] LABS: Absolute Lymphocyte Count 2.03 X10^3/uL (0.83-4.51); Absolute Neutrophil Count 6.9 X10^3/uL (2.0-7.7); Basophil# 0.07 X10^3/uL; Basophil% 0.7 % (0-1); Eosinophil# 0.11 X10^3/uL; Eosinophils% 1.1 % (0-5); Hematocrit 37.9 % (37-47); Lymphocyte # 2.03 X10^3/ul (4.0); Lymphocyte % 20.2 % (19-41); Mean Corp Hgb Conc 34.3 g/dL (32-36); Mean Corpuscular Volume 87.3 fL (81-99); Mean Platelet Vol. 10.9 fl (6.2-12.0); NRBC Flagged by Analyzer 0 % (0-5); Neutrophil # 6.88 X10^3/uL (2.7-7.7); Neutrophil % 68.4 % (47-70); Platelet Count 325 K/mm3 (150-450); RBC Distribution Width CV 12.1 % (11.6-14.6); RBC Distribution Width SD 38.8 fl (35.1-43.9); Red Blood Count 4.34 M/mm3 (4.2-5.4); White Blood Count 10.1 K/mm3 (4.4-11.0)
[2020-07-12] MEDS: Phenobarbital 32.4 MG Tablet PO ×3 (06:28→21:41)
[2020-07-12] MEDS: Insulin Lispro 100 UNIT/ML INSULN.PEN SC ×3 (06:28→21:42)
[2020-07-12] MEDS: Insulin NPH Human 100 UNITS/ML PEN 70 UNITS SC (06:29)
[2020-07-12] MEDS: Insulin Lispro 100 UNIT/ML INSULN.PEN 12 UNIT SC ×2 (06:29→11:29)
[2020-07-12 06:40] LABS: Bedside Glucose 231 mg/dL (70-110)
[2020-07-12 06:41] LABS: ALB/GLOB Ratio 0.6 RATIO (0.9-2.4); AST(SGOT) 9 U/L (15-37); Alanine Aminotransfer ALT/SGPT 10 U/L (13-56); Albumin, Serum 2.7 g/dL (3.2-5.0); Alkaline Phosphatase 139 U/L (45-117); Anion Gap 6 (5-15); BUN 10 mg/dL (7-18); BUN/Creat Ratio 14.5 RATIO (10-20); Chloride 103 mmol/L (98-107); Creatinine, Serum 0.69 mg/dL (0.55-1.02); EST Glomerular Filtration Rate 89 mL/min (>60); Est Glom Filt Rate - Afr Amer 108 mL/min (>60); Globulin 4.2 g/dL (2.2-4.2); Glucose 233 mg/dL (74-106); Potassium 3.2 mmol/L (3.5-5.1); Protein, Total 6.9 g/dL (6.4-8.2); Sodium Level 134 mmol/L (136-145)
[2020-07-12] MEDS: Albuterol 2.5 MG/3 ML VIAL.NEB. INHALATION ×2 (07:01→19:03)
[2020-07-12] MEDS: Budesonide Respules 0.5 MG/2 ML AMPUL.NEB. INHALATION ×2 (07:02→19:03)
[2020-07-12] MEDS: PARoxetine 10 MG Tablet 30 MG PO (08:43)
[2020-07-12] MEDS: Aspirin 81 MG TAB.CHEW PO (08:43)
[2020-07-12] MEDS: Pantoprazole Sodium 20 MG Tablet PO ×2 (08:43→21:43)
[2020-07-12] MEDS: Senna/Docusate Sodium 1 Tablet PO ×2 (08:43→21:44)
[2020-07-12] MEDS: amLODIPine 10 MG Tablet PO (08:43)
[2020-07-12] MEDS: Topiramate 50 MG Tablet PO ×2 (08:44→21:44)
[2020-07-12] MEDS: Lidocaine 5% Patch 2 PATCH TOPICAL (08:44)
[2020-07-12] MEDS: Ibuprofen 400 MG Tablet PO ×2 (08:45→21:41)
--- NOTE | 2020-07-12 10:35 | CASEMGMT ---
RN CM called [facility] and left message for BRANDI Holder regarding patient services and resources. CM will continue to follow this patient and plan for a safe discharge.
--- NOTE | 2020-07-12 10:35 | CASEMGMT ---
RN CRISTHIAN Face to Face with patient for initial transition planning/care coordination assessment. RN CM introduced self and role at [facility]. Patient lying in bed, alert and oriented. Patient willing to participate in assessment and is able to answer all questions appropriately. Care providers, pharmacy, and demographics verified. Patient is undetermined regarding discharge plans. Patient states that she was told by [place] that she could go to somewhere in [place] for therapy. RN to call [facility] to follow up with services. Patient states she has no further needs or concerns at this time. CM to follow for discharge planning needs that may arise. PCP: Dr Hairston at [facility] Specialists: none Preferred Pharmacy: [facility] Insurance: [place] Prescription Benefit: [place] Living Will/HPOA: patient states she has living will but no HPOA LNOK: 2 sons, and daughter Living Arrangements: Patient states she lives alone in a first floor apartment with no steps to enter the home. Patient states she is independent at home. Transportation: self, daughter DME/HHC: Patient states she has shower chair, cane, walker, grab bars, [facility]. Patient states she is not sure what she is going to do at discharge. Patient to have surgery tomorrow. Disposition Plan: TBD pending therapy and [facility] resources. Melida DE LA PAZ, RN, CM
--- NOTE | 2020-07-12 10:49 | PCM.PN.HOSP ---
Patient Problems: Active and Suspected Problems (Last Reviewed 07/10/20 @ 04:[address] Ranjeet Richardson MD) Fall (Acute) Proximal humerus fracture (Acute) Shoulder fracture, right (Acute) Subjective: Frustrated as she is still waiting for OR and she is having a lot of pain in the R arm/shld area. Not taking pain meds though as they make her groggy. Encouraged her to try them for now if pain is an issues and she is agreeable. Denies any other complaints at this time. Vitals/I&O's: Vital Signs Temp Pulse Resp BP Pulse Ox 97.5 F L 86 18 165/70 H 95 07/12/20 08:55 07/12/20 08:55 07/12/20 08:55 07/12/20 08:55 07/12/20 08:55 Oxygen Flow Rate (L/min) 2 Oxygen Delivery Method Room Air Weight: 121.3 kg Body Mass Index (BMI) 43.1 Finger Stick Blood Glucose 198 Intake and Output for Last 24 Hours 07/10/20 07/11/20 07/12/20 23:59 23:59 23:59 Intake Total 1999 / 2250 2700 / 2700 1250 / 1250 Output Total 675 / 1425 2550 / 2550 700 / 700 Balance 1325 / 825 150 / 150 550 / 550 General: Alert, Oriented x3, Cooperative, No apparent distress, Well developed, Well nourished, - - Obese WF lying in bed, watching TV HEENT: Atraumatic, Normocephalic Oral: Moist Mucosa, No Gingival or Mucosal Lesions/ Ulcerations Neck: Supple, Trachea Midline, Thyroid Normal Size and Texture Lungs: Clear to auscultation, Normal air movement, No rhonchi, No wheeze, No rales Cardiovascular: Regular rate, Regular Rhythm, Normal S1, Normal S2, No murmurs, No Ectopic Activity, No rub noted, No Gallop Abdomen: Bowel Sounds Present, Soft, Non Tender, Non-Distended, No Hepato-splenomegaly, Obese, No hernias noted Extremities: No clubbing, No cyanosis, No edema, Capillary Refill Less than 3 Seconds, Peripheral Pulses Normal Skin: No rashes, No breakdown Musculoskeletal: No Muscle Wasting, - - R UE in sling and arm at side, painful Lymphatic: No Cervical, Supraclavicular, or Inguinal Adenopathy Neurological: Cranial nerves II-XII grossly intact, Neuro grossly intact, Muscle tone normal, Coordination normal, - - Weak on R UE 2/2 fracture Psych/Mental Status: - - frustrated with the proccess this am, Alert and oriented to time, place, person, mood and affect Laboratory Results 07/11/20 11:25: POC Glucose 235 H 07/11/20 16:42: POC Glucose 243 H 07/11/20 21:16: POC Glucose 296 H 07/12/20 05:58: WBC 10.1, RBC 4.34, Hgb 13.0, Hct 37.9, MCV 87.3, MCH 30.0, MCHC 34.3, RDW Std Deviation 38.8, RDW Coeff of Linda 12.1, Plt Count 325, MPV 10.9, Immature Gran % (Auto) 0.600, Neut % (Auto) 68.4, Lymph % (Auto) 20.2, [place] % (Auto) 9.0, Eos % (Auto) 1.1, Baso % (Auto) 0.7, Absolute Neuts (auto) 6.9, Absolute Lymphs (auto) 2.03, Nucleated RBC % 0 07/12/20 05:58: Sodium 134 L, Potassium 3.2 L, Chloride 103, Carbon Dioxide 25.0, Anion Gap 6, BUN 10, Creatinine 0.69, Estim Creat Clear Calc 49.00, Est GFR (MDRD) Af Amer 108, Est GFR (MDRD) Non-Af 89, BUN/Creatinine Ratio 14.5, Glucose 233 H, Calcium 9.0, Total Bilirubin 0.60, AST 9 L, ALT 10 L, Alkaline Phosphatase 139 H, Total Protein 6.9, Albumin 2.7 L, Globulin 4.2, Albumin/Globulin Ratio 0.6 L 07/12/20 06:27: POC Glucose 231 H Current Medications Acetaminophen (Acetaminophen 325 Mg Tablet) 650 mg PO Q6H PRN PRN PRN Reason: Pain Score 1-10/Temp > 100.7 F Last Admin: 07/12/20 05:24 Dose: 650 mg Documented by: Albuterol Sulfate (Albuterol 2.5 Mg/3 Ml Vial.Neb.) 2.5 mg INHALATION Q4H PRN PRN PRN Reason: sob/Wheezing Albuterol Sulfate (Albuterol 2.5 Mg/3 Ml Vial.Neb.) 2.5 mg INHALATION Q6HWA.RT [facility] Last Admin: 07/12/20 07:01 Dose: 2.5 mg Documented by: Amlodipine Besylate (Amlodipine 10 Mg Tablet) 10 mg PO DAILY [facility] Last Admin: 07/12/20 08:43 Dose: 10 mg Documented by: Aspirin (Aspirin 81 Mg Tab.Chew) 81 mg PO DAILY@0800 [facility] Last Admin: 07/12/20 08:43 Dose: 81 mg Documented by: Atorvastatin Calcium (Atorvastatin Calcium 20 Mg Tablet) 20 mg PO QHS [facility] Last Admin: 07/11/20 21:29 Dose: 20 mg Documented by: Budesonide (Budesonide Respules 0.5 Mg/2 Ml Ampul.Neb.) 0.5 mg INHALATION Q12H.RT [facility] Last Admin: 07/12/20 07:02 Dose: 0.5 mg Documented by: Cholecalciferol (Cholecalciferol (Vit D3) 1,000 Unit (25mcg)) 1,000 unit PO DAILY [facility] Last Admin: 07/12/20 08:43 Dose: 1,000 unit Documented by: Dextrose (Dextrose 50%-Water 25 Gm/50 Ml Disp.Syrin) 0 gm IV X1 PRN; Protocol PRN Reason: Hypoglycemia Enoxaparin Sodium (Enoxaparin 40 Mg/0.4 Ml Syringe) 40 mg SC BID [facility] Last Admin: 07/11/20 21:38 Dose: 40 mg Documented by: Glucagon (Glucagon 1 Mg/Ml Syringe) 1 mg IM .X1 PRN PRN Reason: Hypoglycemia Hydromorphone HCl (Hydromorphone 1 Mg/Ml Syringe) 1 mg IV Q4H PRN PRN PRN Reason: Pain Score 6-10 Last Admin: 07/11/20 08:09 Dose: 1 mg Documented by: Ibuprofen (Ibuprofen 400 Mg Tablet) 400 mg PO Q6H PRN PRN PRN Reason: Pain Score 1-10 Last Admin: 07/12/20 08:45 Dose: 400 mg Documented by: Insulin Human Lispro (Insulin Lispro 100 Unit/Ml Insuln.Pen) 0 unit SC ACHS [facility]; Protocol Last Admin: 07/12/20 06:28 Dose: 4 u Documented by: Insulin Human Lispro (Insulin Lispro 100 Unit/Ml Insuln.Pen) 12 unit SC TIDAC [facility] Last Admin: 07/12/20 06:29 Dose: 12 u Documented by: Insulin Human NPH (Insulin Nph Human 100 Units/Ml Pen) 70 units SC DAILY@0700 [facility] Last Admin: 07/12/20 06:29 Dose: 70 u Documented by: Insulin Human NPH (Insulin Nph Human 100 Units/Ml Pen) 60 units SC QHS [facility] Lidocaine (Lidocaine 5% Patch) 2 patch TOPICAL DAILY [facility]; Protocol Last Admin: 07/12/20 08:44 Dose: 2 patch Documented by: Loratadine (Loratadine 10 Mg Tablet) 10 mg PO DAILY PRN PRN PRN Reason: NASAL Allergy/congestion Last Admin: 07/10/20 02:22 Dose: 10 mg Documented by: Melatonin (Melatonin 3 Mg Tablet) 3 mg PO QHS PRN PRN PRN Reason: INSOMNIA Last Admin: 07/11/20 21:26 Dose: 3 mg Documented by: Ondansetron HCl (Ondansetron 4 Mg/2 Ml Vial) 4 mg IV Q8H PRN PRN PRN Reason: NAUSEA/VOMITING Last Admin: 07/10/20 19:27 Dose: 4 mg Documented by: Oxycodone HCl (Oxycodone 5 Mg Tablet) 10 mg PO Q4H PRN PRN PRN Reason: Pain Score 4-5 Last Admin: 07/11/20 06:16 Dose: 10 mg Documented by: Pantoprazole Sodium (Pantoprazole Sodium 20 Mg Tablet) 20 mg PO BID [facility] Last Admin: 07/12/20 08:43 Dose: 20 mg Documented by: Paroxetine HCl (Paroxetine 10 Mg Tablet) 30 mg PO DAILY [facility] Last Admin: 07/12/20 08:43 Dose: 30 mg Documented by: Phenobarbital (Phenobarbital 32.4 Mg Tablet) 32.4 mg PO TID [facility] Last Admin: 07/12/20 06:28 Dose: 32.4 mg Documented by: Senna/Docusate Sodium (Senna/Docusate Sodium 1 Tablet) 1 tablet PO BID [facility] Last Admin: 07/12/20 08:43 Dose: 1 tablet Documented by: Sodium Chloride (0.9% Saline Lock 10 Ml Syringe) 10 - 40 ml IV UD PRN PRN Reason: SALINE FLUSH Last Admin: 07/11/20 08:11 Dose: 10 ml Documented by: Tizanidine HCl (Tizanidine Hcl 2 Mg Tablet) 2 mg PO Q8H PRN PRN PRN Reason: muscle pain/spasm Last Admin: 07/12/20 05:24 Dose: 2 mg Documented by: Topiramate (Topiramate 50 Mg Tablet) 50 mg PO BID [facility] Last Admin: 07/12/20 08:44 Dose: 50 mg Documented by: STROKE Vital Signs/Narrative: Vital Signs Temp Pulse Resp BP Pulse Ox 07/12/20 08:55 97.5 F L 86 18 165/70 H 95 07/12/20 07:30 91 07/12/20 07:01 92 18 94 Medical Necessity - Tobacco Use Smoking Status: Never smoker Assessment/Plan All Active Problems (Last Reviewed 07/10/20 @ 04:[address] Ranjeet Richardson MD) Fall (Acute) Proximal humerus fracture (Acute) Shoulder fracture, right (Acute) Acute R Humeral Head/Neck Comminuted and Displaced Fracture -pain meds encouraged -bowel regimen -OR tomorrow -NPO after MN -continue NPH but hold log after MN -watch BGT -Patient's risk score on the ACS NSQIP score was above average, cardiology consulted -patient at low risk for planned procedure -Ortho is following Hypokalemia -40 mEq Kdur -repeat with mag in am Pseudohyponatremia 2/2 elevated BGT DM-2 -NPH for basal--> 70 in am and 50 at HS -increase HS to 60 with BGT consistently > 200 -continue mealtime R as is for now -SSI -monitor closely with OR tomorrow and NPO status HTN/HPL -continue home meds GERD -PPI Seizure d/o -continue phenobarb and topamax MO BMI 43.2 -recommend wgt loss Depression continue Paroxetine DVT prophylaxis -Lovenox BID -SCD Code Status DNR CCA no ETT Inpatient E&M: 70950 Subs Hosp L2
[2020-07-12] MEDS: Enoxaparin 40 MG/0.4 ML Syringe SC ×2 (11:32→21:43)
[2020-07-12 11:41] LABS: Bedside Glucose 197 mg/dL (70-110)
--- NOTE | 2020-07-12 14:15 | CASEMGMT ---
RN CM called [facility] and left message for BRANDI Holder regarding patient services and resources. CM will continue to follow this patient and plan for a safe discharge.
[2020-07-12] MEDS: Glycerin/Hypromellose/PEG400 15 ml Bottle 2 DRP EACH EYE (15:00)
--- NOTE | 2020-07-12 15:40 | CASEMGMT ---
JUNIOR MORROW received call back from Glory PAZ at [facility]. Patient is 70% service connected and SNF would be covered with contracted facilities. Contracted facilities are: [facility], [place], [facility], and [place]. Per Nona patient will need [facility] form completed [facility] and [facility] note. JUNIOR MORROW updated BRANDI Leo.
[2020-07-12 16:25] LABS: Bedside Glucose 128 mg/dL (70-110)
[2020-07-12] MEDS: MELATONIN 3 MG TABLET PO (21:41)
[2020-07-12] MEDS: Atorvastatin Calcium 20 MG Tablet PO (21:44)
[2020-07-12] MEDS: Insulin NPH Human 100 UNITS/ML PEN 60 UNITS SC (21:52)
[2020-07-12 22:35] LABS: Bedside Glucose 263 mg/dL (70-110)
[2020-07-13] VITALS (8 sets, daily range): BP systolic 148–173; BP diastolic 71–90; PULSE 89–104; RESP 16–19; TEMP 36.4–36.9; O2SAT 94–99
[2020-07-13] MEDS: Acetaminophen 325 MG Tablet 650 MG PO ×3 (03:37→20:42)
[2020-07-13] MEDS: Insulin NPH Human 100 UNITS/ML PEN 70 UNITS SC (06:30)
[2020-07-13] MEDS: Ibuprofen 400 MG Tablet PO (06:30)
[2020-07-13] MEDS: Insulin Lispro 100 UNIT/ML INSULN.PEN SC (06:30)
[2020-07-13] MEDS: Phenobarbital 32.4 MG Tablet PO ×3 (06:30→21:57)
[2020-07-13] MEDS: Insulin Lispro 100 UNIT/ML INSULN.PEN 12 UNIT SC ×2 (06:30→13:03)
[2020-07-13 07:00] LABS: Bedside Glucose 163 mg/dL (70-110)
[2020-07-13] MEDS: Budesonide Respules 0.5 MG/2 ML AMPUL.NEB. INHALATION ×2 (07:07→19:40)
[2020-07-13] MEDS: Albuterol 2.5 MG/3 ML VIAL.NEB. INHALATION ×2 (07:07→19:40)
[2020-07-13 07:12] LABS: Absolute Lymphocyte Count 2.44 X10^3/uL (0.83-4.51); Absolute Neutrophil Count 6.9 X10^3/uL (2.0-7.7); Basophil# 0.07 X10^3/uL; Basophil% 0.7 % (0-1); Eosinophil# 0.13 X10^3/uL; Eosinophils% 1.2 % (0-5); Hematocrit 36.1 % (37-47); Hemoglobin 12.2 g/dL (12.0-15.0); Lymphocyte # 2.44 X10^3/ul (4.0); Mean Corp Hgb Conc 33.8 g/dL (32-36); Mean Corpuscular Hgb 29.8 pg (27.0-32.0); Mean Corpuscular Volume 88.3 fL (81-99); Mean Platelet Vol. 11.7 fl (6.2-12.0); Monocyte# 1.01 X10^3/uL; Monocyte% 9.5 % (0-10); NRBC Flagged by Analyzer 0 % (0-5); Neutrophil # 6.92 X10^3/uL (2.7-7.7); Neutrophil % 65.1 % (47-70); Platelet Count 307 K/mm3 (150-450); RBC Distribution Width CV 12.5 % (11.6-14.6); RBC Distribution Width SD 39.7 fl (35.1-43.9); Red Blood Count 4.09 M/mm3 (4.2-5.4); White Blood Count 10.6 K/mm3 (4.4-11.0)
[2020-07-13 07:43] LABS: ALB/GLOB Ratio 0.6 RATIO (0.9-2.4); AST(SGOT) 12 U/L (15-37); Alanine Aminotransfer ALT/SGPT 8 U/L (13-56); Albumin, Serum 2.3 g/dL (3.2-5.0); Alkaline Phosphatase 115 U/L (45-117); Anion Gap 6 (5-15); BUN 11 mg/dL (7-18); Calcium,Total 9.1 mg/dL (8.5-10.1); Chloride 105 mmol/L (98-107); Creatinine, Serum 0.58 mg/dL (0.55-1.02); EST Glomerular Filtration Rate 109 mL/min (>60); Est Glom Filt Rate - Afr Amer 132 mL/min (>60); Globulin 3.9 g/dL (2.2-4.2); Glucose 154 mg/dL (74-106); Magnesium 1.7 mg/dL (1.6-2.6); Potassium 3.3 mmol/L (3.5-5.1); Protein, Total 6.2 g/dL (6.4-8.2); Sodium Level 136 mmol/L (136-145)
[2020-07-13] MEDS: Lidocaine 5% Patch 2 PATCH TOPICAL (09:16)
[2020-07-13] MEDS: Senna/Docusate Sodium 1 Tablet PO ×2 (09:16→21:57)
[2020-07-13] MEDS: Aspirin 81 MG TAB.CHEW PO (09:16)
[2020-07-13] MEDS: PARoxetine 10 MG Tablet 30 MG PO (09:17)
[2020-07-13] MEDS: Enoxaparin 40 MG/0.4 ML Syringe SC ×2 (09:17→21:58)
[2020-07-13] MEDS: Pantoprazole Sodium 20 MG Tablet PO ×2 (09:17→21:57)
[2020-07-13] MEDS: amLODIPine 10 MG Tablet PO (09:18)
[2020-07-13] MEDS: Topiramate 50 MG Tablet PO ×2 (09:18→21:57)
[2020-07-13] MEDS: tiZANidine HCl 2 MG Tablet PO (09:23)
[2020-07-13] MEDS: Potassium Chloride 10mEq/100mL 10 MEQ/100 ML IV.SOLN. 100 MEQ IV BOLUS ×4 (09:50→13:08)
[2020-07-13] MEDS: 0.9% Saline Lock 10 ML Syringe IV ×2 (09:57→15:30)
--- NOTE | 2020-07-13 10:44 | PCM.PN.HOSP ---
Patient Problems: Active and Suspected Problems (Last Reviewed 07/10/20 @ 04:[address] Ranjeet Richardson MD) Fall (Acute) Proximal humerus fracture (Acute) Shoulder fracture, right (Acute) Subjective: Pt sleepy this am. States she was told they are holding off on OR for now. To be evaluated by Dr. Richard per nsg. Still with pain but won't take narcotics. Vitals/I&O's: Vital Signs Temp Pulse Resp BP Pulse Ox 98.3 F 104 H 19 H 148/84 H 94 07/13/20 02:30 07/13/20 07:18 07/13/20 07:18 07/13/20 02:30 07/13/20 09:47 Oxygen Flow Rate (L/min) 2 Oxygen Delivery Method Room Air Weight: 121.3 kg Body Mass Index (BMI) 43.1 Finger Stick Blood Glucose 198 Intake and Output for Last 24 Hours 07/11/20 07/12/20 07/13/20 23:59 23:59 23:59 Intake Total 2700 / 2700 2350 / 2350 1250 / 1250 Output Total 2550 / 2550 2300 / 2300 1100 / 1100 Balance 150 / 150 50 / 50 150 / 150 General: Alert, Oriented x3, Cooperative, No apparent distress, Well developed, Well nourished, - - sleepy but awakens HEENT: Atraumatic, Normocephalic Oral: Moist Mucosa Neck: Supple, Trachea Midline Lungs: Clear to auscultation, Normal air movement, No rhonchi, No wheeze, No rales Cardiovascular: Regular rate, Regular Rhythm, Normal S1, Normal S2, No murmurs, No Ectopic Activity, No rub noted, No Gallop Abdomen: Bowel Sounds Present, Soft, Non Tender, Non-Distended, No Hepato-splenomegaly, Obese Extremities: No clubbing, No cyanosis, No edema, Capillary Refill Less than 3 Seconds, Peripheral Pulses Normal Skin: No rashes, No breakdown, - - eccyhmosis L UE proximally Musculoskeletal: Tenderness - R UE Neurological: Cranial nerves II-XII grossly intact, Neuro grossly intact Microbiology Past 72 Hours 07/12/20 16:10 Mucosa - Nose SARS-CoV-2 Antigen (Rapid) - Final Laboratory Results 07/12/20 11:28: POC Glucose 197 H 07/12/20 16:17: POC Glucose 128 H 07/12/20 21:33: POC Glucose 263 H 07/13/20 06:11: WBC 10.6, RBC 4.09 L, Hgb 12.2, Hct 36.1 L, MCV 88.3, MCH 29.8, MCHC 33.8, RDW Std Deviation 39.7, RDW Coeff of Linda 12.5, Plt Count 307, MPV 11.7, Immature Gran % (Auto) 0.500, Neut % (Auto) 65.1, Lymph % (Auto) 23.0, [place] % (Auto) 9.5, Eos % (Auto) 1.2, Baso % (Auto) 0.7, Absolute Neuts (auto) 6.9, Absolute Lymphs (auto) 2.44, Nucleated RBC % 0 07/13/20 06:11: Sodium 136, Potassium 3.3 L, Chloride 105, Carbon Dioxide 25.0, Anion Gap 6, BUN 11, Creatinine 0.58, Estim Creat Clear Calc 49.00, Est GFR (MDRD) Af Amer 132, Est GFR (MDRD) Non-Af 109, BUN/Creatinine Ratio 19.0, Glucose 154 H, Calcium 9.1, Magnesium 1.7, Total Bilirubin 0.50, AST 12 L, ALT 8 L, Alkaline Phosphatase 115, Total Protein 6.2 L, Albumin 2.3 L, Globulin 3.9, Albumin/Globulin Ratio 0.6 L 07/13/20 06:26: POC Glucose 163 H Current Medications Acetaminophen (Acetaminophen 325 Mg Tablet) 650 mg PO Q6H PRN PRN PRN Reason: Pain Score 1-10/Temp > 100.7 F Last Admin: 07/13/20 03:37 Dose: 650 mg Documented by: Albuterol Sulfate (Albuterol 2.5 Mg/3 Ml Vial.Neb.) 2.5 mg INHALATION Q4H PRN PRN PRN Reason: sob/Wheezing Albuterol Sulfate (Albuterol 2.5 Mg/3 Ml Vial.Neb.) 2.5 mg INHALATION Q6HWA.RT [facility] Last Admin: 07/13/20 07:07 Dose: 2.5 mg Documented by: Amlodipine Besylate (Amlodipine 10 Mg Tablet) 10 mg PO DAILY [facility] Last Admin: 07/13/20 09:18 Dose: 10 mg Documented by: Aspirin (Aspirin 81 Mg Tab.Chew) 81 mg PO DAILY@0800 [facility] Last Admin: 07/13/20 09:16 Dose: 81 mg Documented by: Atorvastatin Calcium (Atorvastatin Calcium 20 Mg Tablet) 20 mg PO QHS [facility] Last Admin: 07/12/20 21:44 Dose: 20 mg Documented by: Budesonide (Budesonide Respules 0.5 Mg/2 Ml Ampul.Neb.) 0.5 mg INHALATION Q12H.RT [facility] Last Admin: 07/13/20 07:07 Dose: 0.5 mg Documented by: Cholecalciferol (Cholecalciferol (Vit D3) 1,000 Unit (25mcg)) 1,000 unit PO DAILY [facility] Last Admin: 07/13/20 09:15 Dose: 1,000 unit Documented by: Dextrose (Dextrose 50%-Water 25 Gm/50 Ml Disp.Syrin) 0 gm IV X1 PRN; Protocol PRN Reason: Hypoglycemia Enoxaparin Sodium (Enoxaparin 40 Mg/0.4 Ml Syringe) 40 mg SC BID [facility] Last Admin: 07/13/20 09:17 Dose: 40 mg Documented by: Glucagon (Glucagon 1 Mg/Ml Syringe) 1 mg IM .X1 PRN PRN Reason: Hypoglycemia Hydromorphone HCl (Hydromorphone 1 Mg/Ml Syringe) 1 mg IV Q4H PRN PRN PRN Reason: Pain Score 6-10 Last Admin: 07/11/20 08:09 Dose: 1 mg Documented by: Potassium Chloride () 10 meq in 100 mls @ 100 mls/hr IV BOLUS Q1H [facility] Stop: 07/13/20 11:44 Last Admin: 07/13/20 09:50 Dose: 100 mls/hr Documented by: Ibuprofen (Ibuprofen 400 Mg Tablet) 400 mg PO Q6H PRN PRN PRN Reason: Pain Score 1-10 Last Admin: 07/13/20 06:30 Dose: 400 mg Documented by: Insulin Human Lispro (Insulin Lispro 100 Unit/Ml Insuln.Pen) 0 unit SC ACHS [facility]; Protocol Last Admin: 07/13/20 06:30 Dose: 2 u Documented by: Insulin Human Lispro (Insulin Lispro 100 Unit/Ml Insuln.Pen) 12 unit SC TIDAC [facility] Last Admin: 07/13/20 06:30 Dose: 12 u Documented by: Insulin Human NPH (Insulin Nph Human 100 Units/Ml Pen) 70 units SC DAILY@0700 [facility] Last Admin: 07/13/20 06:30 Dose: 70 u Documented by: Insulin Human NPH (Insulin Nph Human 100 Units/Ml Pen) 60 units SC QHS [facility] Last Admin: 07/12/20 21:52 Dose: 60 u Documented by: Lidocaine (Lidocaine 5% Patch) 2 patch TOPICAL DAILY [facility]; Protocol Last Admin: 07/13/20 09:16 Dose: 2 patch Documented by: Loratadine (Loratadine 10 Mg Tablet) 10 mg PO DAILY PRN PRN PRN Reason: NASAL Allergy/congestion Last Admin: 07/10/20 02:22 Dose: 10 mg Documented by: Melatonin (Melatonin 3 Mg Tablet) 3 mg PO QHS PRN PRN PRN Reason: INSOMNIA Last Admin: 07/12/20 21:41 Dose: 3 mg Documented by: Ondansetron HCl (Ondansetron 4 Mg/2 Ml Vial) 4 mg IV Q8H PRN PRN PRN Reason: NAUSEA/VOMITING Last Admin: 07/10/20 19:27 Dose: 4 mg Documented by: Oxycodone HCl (Oxycodone 5 Mg Tablet) 10 mg PO Q4H PRN PRN PRN Reason: Pain Score 4-5 Last Admin: 07/11/20 06:16 Dose: 10 mg Documented by: Pantoprazole Sodium (Pantoprazole Sodium 20 Mg Tablet) 20 mg PO BID [facility] Last Admin: 07/13/20 09:17 Dose: 20 mg Documented by: Paroxetine HCl (Paroxetine 10 Mg Tablet) 30 mg PO DAILY [facility] Last Admin: 07/13/20 09:17 Dose: 30 mg Documented by: Phenobarbital (Phenobarbital 32.4 Mg Tablet) 32.4 mg PO TID [facility] Last Admin: 07/13/20 06:30 Dose: 32.4 mg Documented by: Senna/Docusate Sodium (Senna/Docusate Sodium 1 Tablet) 1 tablet PO BID [facility] Last Admin: 07/13/20 09:16 Dose: 1 tablet Documented by: Sodium Chloride (0.9% Saline Lock 10 Ml Syringe) 10 - 40 ml IV UD PRN PRN Reason: SALINE FLUSH Last Admin: 07/13/20 09:57 Dose: 10 ml Documented by: Tizanidine HCl (Tizanidine Hcl 2 Mg Tablet) 2 mg PO Q8H PRN PRN PRN Reason: muscle pain/spasm Last Admin: 07/13/20 09:23 Dose: 2 mg Documented by: Topiramate (Topiramate 50 Mg Tablet) 50 mg PO BID [facility] Last Admin: 07/13/20 09:18 Dose: 50 mg Documented by: STROKE Vital Signs/Narrative: Vital Signs Pulse Resp Pulse Ox 07/13/20 09:47 94 07/13/20 08:17 94 07/13/20 07:18 104 H 19 H Medical Necessity - Tobacco Use Smoking Status: Never smoker Assessment/Plan All Active Problems (Last Reviewed 07/10/20 @ 04:[address] Ranjeet Richardson MD) Fall (Acute) Proximal humerus fracture (Acute) Shoulder fracture, right (Acute) Acute R Humeral Head/Neck Comminuted and Displaced Fracture -pain meds encouraged -bowel regimen -OR for today was canceled per nsg and pt to be evaluated by Dr. Richard -await consultation to see what plan will be -Patient's risk score on the ACS NSQIP score was above average, cardiology consulted -patient at low risk for planned procedure -Ortho is following Hypokalemia -remains low -repeat 40 mEq Kdur -repeat in am -mag WNL Pseudohyponatremia -resolved DM-2 -NPH for basal--> 70 in am and 60 at HS -BGT better today -continue mealtime R as is for now -SSI -monitor closely with OR potentially HTN/HPL -continue home meds GERD -PPI Seizure d/o -continue phenobarb and topamax MO BMI 43.2 -recommend wgt loss Depression continue Paroxetine DVT prophylaxis -Lovenox BID -SCD Code Status -DNR CCA no ETT Dispo -awaiting plan from Ortho Inpatient E&M: 34798 Subs Hosp L2
--- NOTE | 2020-07-13 11:16 | CASEMGMT ---
Addendum entered by Melida Leo 07/13/20 11:42: BRANDI updated RN CM that pt is wanting to discharge home now. Original Note: Social Work Note SW met with pt to continue discussion of discharge plans. Pt states now she will not be going to correction and will either stay with one of her children or will have one of her children stay with her. Pt states the [facility] either and aide air traffic control supervisor coming in to the home but doesn't really want a lot of people coming in to her home due to COVID. Pt states she has three children, two sons and a daughter. Pt identifies her oldest son Miguel Ángel Tejeda as being main support for pt. Pt then states all of her children are good support and are always willing to help her out when needed. Pt states Miguel Ángel lives in [place]. Pt also states she has grandchildren that are able to assist as well. Pt states between her children and grandchildren she will have 24/7 care in the home. Pt states after her ankle fracture she stayed with her son. Pt states during that time she suffered another fall and broke her nurse. Pt states she is frustrated lately with health issues and frustrated with surgery at [facility]. Pt states she just needs to talk to the physician and ortho physician to get clarification on surgery and when/what type of surgery. SW encouraged pt to speak with physician. Pt states Last night I had a dream I was and there was no room in the coffin for me. SW spoke with pt regarding dream, provided support. SW spoke with pt about how being hospital/change in environment can have affects on people. Pt states history of bipolar disorder. Pt states she see's psychiatrist through [facility]. Pt states before COVID she was seeing the psychiatrist every 2 months but not is only doing phone calls. Pt states PCP is Dr. Hairston through the [facility]. Pt states she feels symptoms of depression regularly. Pt states since she broke her foot, she has no interest in the activities she used to like to do. Pt states I can't just get up and go now. Pt denied any history or current suicidal thoughts/plans/ideations. Pt states I love the Lord too much. Pt then states I feel like the Lord just doesn't like me right now. Pt states I used to talk and see him and now I don't. Pt states she feels like the lord doesn't like her due to her recent health issues. SW offered to make referral to the Firewall Administrator and pt agreeable to referral. Pt states that her sister 7 weeks ago from lung cancer. Pt states she has lost two brothers, two sisters, and cousins. SW offered support to pt. SW offered to provide pt with grief/bereavement resources, pt agreeable to resources. Pt states that her family has history of Alzheimers and wanted to know warning signs or medications to take for memory. Pt states sometimes I will just drift. SW encouraged pt to talk to [facility]iatrist regarding her concerns for Alzheimers. SW spoke with pt regarding coping skills, activities she is able to do. 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 Pt states that due to health issues, she has been unable to write as much. Pt states she has tablet/cell phone but doesn't like to use them. Pt states she hopes to be able to get back to writing children stories. BRANDI spent much time with pt and provided much support to pt. Pt thanked this worker, denied any additional needs or concerns at this time. SW placed a call to [facility], referral provided. SW provided pt with grief/bereavement resources. Melida Leo TRUSTEE OF ESTATE, CAPACITOR REPAIRER
[2020-07-13] MEDS: Polyethylene Glycol 3350 17 GM PACKET PO ×2 (11:55→22:08)
[2020-07-13 12:10] LABS: Bedside Glucose 131 mg/dL (70-110)
--- NOTE | 2020-07-13 14:05 | CHAPLAIN ---
Type of Pastoral Visit _x__ Initial Visit ___ Follow-up Visit ___ On-call Visit ___ General Patient Visit ___ Spiritual Assessment ___ Family Conference ___ Bereavement ___ Rapid Response ___ Code Blue ___ Other (describe below) Pastoral Care Referral From _x__ Patient ___ Family _x__ Nurse ___ Physician _x__ [place]er ___ Resource Specialist Teacher ___ Other (describe below) Sacrament/Intervention _x__ Active listening ___ Anointing ___ Catholic ___ Bereavement ___ Communion _x__ Ya exploration ___ _x__ Life review _x__ Prayer ___ Reconciliation ___ Sacrament of Sick _x__ Supportive presence ___ Wedding ___ Other (describe below) Pastoral Comments patient seeks spiritual help and states I love the Lord but I feel like He has left; long discussion of spiritual matters and scriptures; pt is given presence, listening ear, and support; pt welcomes prayer; pt expresses thanks for visit and feeling better after discussion
--- NOTE | 2020-07-13 15:06 | PCM.DC ---
- Discharge Diagnoses Current Active Problems: Current Active and Chronic Problems (Last Reviewed 07/10/20 @ 04:[address] Ranjeet Richardson MD) Hypertension (Chronic) Diabetes mellitus type 2 in obese (Chronic) Fall (Acute) Dyslipidemia (Chronic) Chronic stable Asthma (Chronic) Proximal humerus fracture (Acute) Shoulder fracture, right (Acute) You will use the following diet at home:: Calorie/Carbohydrate Controlled (specify 1200, 1400, etc), Cardiac Your food should be the consistency of: Regular Your liquids should be the consistency of: Regular/Thin Discharge Activity: Return to Normal Activity, May Not Drive, May not drive while taking narcotic pain medications., - - R UE in sling Additional Activity Instructions:: Do NOT take [place] with Tylenol-please take one or the other Allergies/Adverse Reactions: Allergies ciprofloxacin Allergy (Verified 09/10/18 16:55) Unknown hydrochlorothiazide Allergy (Verified 09/10/18 16:55) Unknown pentazocine [From Talwin] Allergy (Verified 09/10/18 16:55) Unknown lamotrigine [From Lamictal] Adverse Reaction (Verified 07/10/20 00:28) Nausea Medications to take at Discharge Omeprazole [Prilosec] 20 mg PO BID 12/19/13 Simvastatin [Zocor] 40 mg PO QHS 12/19/13 Topiramate [Topamax] 50 mg PO BID 12/19/13 Albuterol Aerosols [Ventolin Aerosols] 2.5 mg INHALATION Q4H PRN PRN 05/09/14 Glucosam/Kiran-Msm1/C/Cricket/Bosw [Osteo Bi-Flex Caplet] 1 each PO BID 05/09/14 Insulin NPH Human [Humulin N Pen] 60 units SC DAILY@0730 05/09/14 Insulin Regular, Human [Novolin R] 20 unit SC BIDAC 05/09/14 Aspirin [Aspirin, Baby] 81 mg PO DAILY@0800 08/26/18 Budesonide/Formoterol 160/4.5 [Symbicort 160/4.5 Mcg Inhaler (SP)] 1 puff INHALATION BID 08/26/18 Paroxetine HCl 30 mg PO DAILY 08/26/18 Phenobarbital 30 mg PO TID 08/26/18 Amlodipine [Norvasc] 10 mg PO DAILY #0 08/28/18 Cetirizine HCl [Zyrtec] 10 mg PO DAILY PRN PRN #0 08/28/18 Tizanidine HCl [Zanaflex] 2 mg PO Q8H PRN PRN #20 tab 08/28/18 Insulin NPH Human [Humulin N Pen] 40 units SC QHS 07/10/20 Lamotrigine BID 07/10/20 Vitamin D3 1 tab PO DAILY 07/10/20 Hydrocodone/Acetaminophen [[place] 5-325 Tablet] 1 ea PO [id number] 5 Days #20 tab 07/13/20 The following prescriptions were given: Hydrocodone/Acetaminophen [[place] 5-325 Tablet] 1 ea PO [id number] 5 Days #20 tab Transmission Status: Pending to [id number] Primary Care Physician: [facility] [Primary Care Provider] - Please follow up with your Primary Care Physician in: As needed Test Results: Test results from this visit will be discussed in further detail at your follow-up appointment, if applicable. Please Follow Up With: Dr. Richard When: 1-2 weeks
--- NOTE | 2020-07-13 15:09 | PCM.DC.SUM ---
Discharge Date and Diagnosis - Problem List Patient Problems: Active and Suspected Problems (Last Reviewed 07/10/20 @ 04:[address] Ranjeet Richardson MD) Fall (Acute) Proximal humerus fracture (Acute) Shoulder fracture, right (Acute) Date of Admission: 07/10/20 Date of Discharge: 07/13/20 - Primary Discharge Diagnosis Acute Problems: Active Problems (Last Reviewed 07/10/20 @ 04:[address] Ranjeet Richardson MD) Fall (Acute) Proximal humerus fracture (Acute) Shoulder fracture, right (Acute) - Secondary Discharge Diagnosis Chronic Problems: Chronic Problems (Last Reviewed 07/10/20 @ 04:[address] Ranjeet Richardson MD) Hypertension (Chronic) Diabetes mellitus type 2 in obese (Chronic) Dyslipidemia (Chronic) Chronic stable Asthma (Chronic) Hospital Course and Treatment Imaging Results: ISTORY: RT SHOULDER PAIN AFTER A FALL,FRACTURE RT HUMERUSHX:ASTHMA,DIABETES,HTN EXAMINATION: CT right shoulder W/O Contrast Injection TECHNIQUE: Helically acquired images were obtained of the right shoulder. 2-D reformats were performed by the technologist. A radiation dose optimization technique was used for this scan. IV Contrast dosage and agent: None COMPARISON: Right humerus 07/09/2020 FINDINGS: Comminuted fracture of the right humeral head and neck. The main component of the fracture is a transverse fracture of the humeral surgical neck and with fracture displacement and overriding of fracture fragments. The major distal humeral fragment shows approximately 4 cm of proximal displacement together with anterior and medial displacement. The distal fracture fragment abuts the right subcoracoid region. The right humeral head is not dislocated and shows clockwise rotation and accompanied by prominent valgus angular deformity of the distal humerus. Nondisplaced fracture of the superior lateral right humeral head. The bicipital groove appears intact. The scapula and right glenoid appear intact. The right AC joint is preserved and not widened. No pneumothorax. Visualized right ribs appear intact. CT/Extremity Upper without Contra IMPRESSION: Right humeral head and neck comminuted, displaced fracture with valgus deformity. Details above. Individualized dose optimization techniques were used for this CT. at 0202 Reported and signed by: Jimenez Bosch MD Electronically Signed: Jimenez Bosch, at 2:00 EST Tel , Service support , Reason For Study: PRE OPERATIVE Procedure This was a 2D Doppler, Color Flow transthoracic echocardiogram. The study was technically limited. The study was technically difficult. Due to right shoulder fracture, unable to reposition patient due to pain. Contrast injection was performed. Exam performed portable in patient room. Left Ventricle Normal LV size. Moderate concentric left ventricular hypertrophy. Left ventricular systolic function is normal. The estimated ejection fraction is 65 %. No regional wall motion abnormalities noted. Mitral Valve Mitral valve not well visualized. Tricuspid Valve The tricuspid valve is not well visualized. Aortic Valve The aortic valve is not well visualized. Pericardium/Pleural No pericardial effusion. Medication Diluted definity 5.0ml given slow IV push to enhance endocardial definition. MMode/2D Measurements & Calculations Ao root diam: 3.4 cm LAV(MOD-sp4): 37.8 ml LA A4 area: 15.6 cm2 LA dimension(2D): 3.5 cm Doppler Measurements & Calculations MV E max kiara: 79.6 cm/sec Ao V2 max: 135.6 cm/sec LV V1 max: 91.4 cm/sec MV A max kiara: 157.1 cm/sec Ao max P.4 mmHg LV V1 max P.3 mmHg MV E/A: 0.51 PA V2 max: 130.3 cm/sec Interpretation Summary Normal LV size. Moderate concentric left ventricular hypertrophy. Left ventricular systolic function is normal. The estimated ejection fraction is 65 %. Contrast injection was performed. Ordering Physician: Camilo Ramos Referring Physician: [facility] Performed By: Karlene Hatfield RDCS, RVT Operations: None Procedures: 2-D Echocardiogram Summary of Care Provided: Ms Sarabia is a 70 year old F who presented to the ED on 07/10/2020 with R UE pain s/p a mechanical fall. She tripped and landed on her R shoulder. Xray in the ED showed a Displaced fracture of the R humeral surgical neck and a CT was done which showed Right humeral head and neck comminuted, displaced fracture with valgus deformity. She was seen by cardiology and cleared for the OR. The original plan was to take the pt to the OR on 07/12 or 07/13 but when ortho reviewed the CT further it was determined that a plate and screws could not be placed 2/2 osteopenia and she would need a reverse shoulder replacement. Dr. Richard felt that she would do better if she was given a couple of weeks to allow the edema to resolve before surgery so she was d/c home in stable condition with f/u at Dr. Richard's office in 2 weeks. She is reluctant to take pain meds and has been relying on APAP and NSAIDS. I did encourage her to use some narcotics PRN if the pain is bad and she was given a script for 5 days of [place] but instructed not to take them in conjunction with her APAP. She has family coming to stay with her at home. Discharge DX Acute R Humeral Head/Neck Comminuted and Displaced Fracture Hypokalemia Pseudohyponatremia DM-2 HTN HPL GERD Seizure d/o MO Depression Discharge Time > 31' Patient Problems: Active and Suspected Problems (Last Reviewed 07/10/20 @ 04:[address] Ranjeet Richardson MD) Fall (Acute) Proximal humerus fracture (Acute) Shoulder fracture, right (Acute) - Physical Exam Vitals/I&O's: Vital Signs Temp Pulse Resp BP Pulse Ox 98.4 F 90 16 173/90 H 94 07/13/20 09:10 07/13/20 09:10 07/13/20 09:10 07/13/20 09:10 07/13/20 09:47 Oxygen Flow Rate (L/min) 2 Oxygen Delivery Method Room Air Weight: 121.3 kg Body Mass Index (BMI) 43.1 Finger Stick Blood Glucose 198 Intake and Output for Last 24 Hours 07/11/20 07/12/20 07/13/20 23:59 23:59 23:59 Intake Total 2700 / 2700 2350 / 2350 1950 / 1950 Output Total 2550 / 2550 2300 / 2300 1800 / 1800 Balance 150 / 150 50 / 50 150 / 150 Microbiology Past 72 Hours 07/12/20 16:10 Mucosa - Nose SARS-CoV-2 Antigen (Rapid) - Final Laboratory Results 07/12/20 16:17: POC Glucose 128 H 07/12/20 21:33: POC Glucose 263 H 07/13/20 06:11: WBC 10.6, RBC 4.09 L, Hgb 12.2, Hct 36.1 L, MCV 88.3, MCH 29.8, MCHC 33.8, RDW Std Deviation 39.7, RDW Coeff of Linda 12.5, Plt Count 307, MPV 11.7, Immature Gran % (Auto) 0.500, Neut % (Auto) 65.1, Lymph % (Auto) 23.0, [place] % (Auto) 9.5, Eos % (Auto) 1.2, Baso % (Auto) 0.7, Absolute Neuts (auto) 6.9, Absolute Lymphs (auto) 2.44, Nucleated RBC % 0 07/13/20 06:11: Sodium 136, Potassium 3.3 L, Chloride 105, Carbon Dioxide 25.0, Anion Gap 6, BUN 11, Creatinine 0.58, Estim Creat Clear Calc 49.00, Est GFR (MDRD) Af Amer 132, Est GFR (MDRD) Non-Af 109, BUN/Creatinine Ratio 19.0, Glucose 154 H, Calcium 9.1, Magnesium 1.7, Total Bilirubin 0.50, AST 12 L, ALT 8 L, Alkaline Phosphatase 115, Total Protein 6.2 L, Albumin 2.3 L, Globulin 3.9, Albumin/Globulin Ratio 0.6 L 07/13/20 06:26: POC Glucose 163 H 07/13/20 12:04: POC Glucose 131 H Current Medications Acetaminophen (Acetaminophen 325 Mg Tablet) 650 mg PO Q6H PRN PRN PRN Reason: Pain Score 1-10/Temp > 100.7 F Last Admin: 07/13/20 11:54 Dose: 650 mg Documented by: Albuterol Sulfate (Albuterol 2.5 Mg/3 Ml Vial.Neb.) 2.5 mg INHALATION Q4H PRN PRN PRN Reason: sob/Wheezing Albuterol Sulfate (Albuterol 2.5 Mg/3 Ml Vial.Neb.) 2.5 mg INHALATION Q6HWA.RT [facility] Last Admin: 07/13/20 07:07 Dose: 2.5 mg Documented by: Amlodipine Besylate (Amlodipine 10 Mg Tablet) 10 mg PO DAILY [facility] Last Admin: 07/13/20 09:18 Dose: 10 mg Documented by: Aspirin (Aspirin 81 Mg Tab.Chew) 81 mg PO DAILY@0800 [facility] Last Admin: 07/13/20 09:16 Dose: 81 mg Documented by: Atorvastatin Calcium (Atorvastatin Calcium 20 Mg Tablet) 20 mg PO QHS [facility] Last Admin: 07/12/20 21:44 Dose: 20 mg Documented by: Budesonide (Budesonide Respules 0.5 Mg/2 Ml Ampul.Neb.) 0.5 mg INHALATION Q12H.RT [facility] Last Admin: 07/13/20 07:07 Dose: 0.5 mg Documented by: Cholecalciferol (Cholecalciferol (Vit D3) 1,000 Unit (25mcg)) 1,000 unit PO DAILY [facility] Last Admin: 07/13/20 09:15 Dose: 1,000 unit Documented by: Dextrose (Dextrose 50%-Water 25 Gm/50 Ml Disp.Syrin) 0 gm IV X1 PRN; Protocol PRN Reason: Hypoglycemia Enoxaparin Sodium (Enoxaparin 40 Mg/0.4 Ml Syringe) 40 mg SC BID [facility] Last Admin: 07/13/20 09:17 Dose: 40 mg Documented by: Glucagon (Glucagon 1 Mg/Ml Syringe) 1 mg IM .X1 PRN PRN Reason: Hypoglycemia Hydromorphone HCl (Hydromorphone 1 Mg/Ml Syringe) 1 mg IV Q4H PRN PRN PRN Reason: Pain Score 6-10 Last Admin: 07/11/20 08:09 Dose: 1 mg Documented by: Ibuprofen (Ibuprofen 400 Mg Tablet) 400 mg PO Q6H PRN PRN PRN Reason: Pain Score 1-10 Last Admin: 07/13/20 06:30 Dose: 400 mg Documented by: Insulin Human Lispro (Insulin Lispro 100 Unit/Ml Insuln.Pen) 0 unit SC ACHS [facility]; Protocol Last Admin: 07/13/20 12:05 Dose: Not Given Documented by: Insulin Human Lispro (Insulin Lispro 100 Unit/Ml Insuln.Pen) 12 unit SC TIDAC [facility] Last Admin: 07/13/20 13:03 Dose: 12 u Documented by: Insulin Human NPH (Insulin Nph Human 100 Units/Ml Pen) 70 units SC DAILY@0700 [facility] Last Admin: 07/13/20 06:30 Dose: 70 u Documented by: Insulin Human NPH (Insulin Nph Human 100 Units/Ml Pen) 60 units SC QHS [facility] Last Admin: 07/12/20 21:52 Dose: 60 u Documented by: Lidocaine (Lidocaine 5% Patch) 2 patch TOPICAL DAILY [facility]; Protocol Last Admin: 07/13/20 09:16 Dose: 2 patch Documented by: Loratadine (Loratadine 10 Mg Tablet) 10 mg PO DAILY PRN PRN PRN Reason: NASAL Allergy/congestion Last Admin: 07/10/20 02:22 Dose: 10 mg Documented by: Melatonin (Melatonin 3 Mg Tablet) 3 mg PO QHS PRN PRN PRN Reason: INSOMNIA Last Admin: 07/12/20 21:41 Dose: 3 mg Documented by: Ondansetron HCl (Ondansetron 4 Mg/2 Ml Vial) 4 mg IV Q8H PRN PRN PRN Reason: NAUSEA/VOMITING Last Admin: 07/10/20 19:27 Dose: 4 mg Documented by: Oxycodone HCl (Oxycodone 5 Mg Tablet) 10 mg PO Q4H PRN PRN PRN Reason: Pain Score 4-5 Last Admin: 07/11/20 06:16 Dose: 10 mg Documented by: Pantoprazole Sodium (Pantoprazole Sodium 20 Mg Tablet) 20 mg PO BID [facility] Last Admin: 07/13/20 09:17 Dose: 20 mg Documented by: Paroxetine HCl (Paroxetine 10 Mg Tablet) 30 mg PO DAILY [facility] Last Admin: 07/13/20 09:17 Dose: 30 mg Documented by: Phenobarbital (Phenobarbital 32.4 Mg Tablet) 32.4 mg PO TID [facility] Last Admin: 07/13/20 06:30 Dose: 32.4 mg Documented by: Polyethylene Glycol (Polyethylene Glycol 3350 17 Gm Packet) 17 gm PO BID [facility] Last Admin: 07/13/20 11:55 Dose: 17 gm Documented by: Senna/Docusate Sodium (Senna/Docusate Sodium 1 Tablet) 1 tablet PO BID [facility] Last Admin: 07/13/20 09:16 Dose: 1 tablet Documented by: Sodium Chloride (0.9% Saline Lock 10 Ml Syringe) 10 - 40 ml IV UD PRN PRN Reason: SALINE FLUSH Last Admin: 07/13/20 09:57 Dose: 10 ml Documented by: Tizanidine HCl (Tizanidine Hcl 2 Mg Tablet) 2 mg PO Q8H PRN PRN PRN Reason: muscle pain/spasm Last Admin: 07/13/20 09:23 Dose: 2 mg Documented by: Topiramate (Topiramate 50 Mg Tablet) 50 mg PO BID [facility] Last Admin: 07/13/20 09:18 Dose: 50 mg Documented by: Discharge Activity: Return to Normal Activity, May Not Drive, May not drive while taking narcotic pain medications., - - R UE in sling Additional Activity Instructions:: Do NOT take [place] with Tylenol-please take one or the other Home Medications: Medications to take at Discharge Omeprazole [Prilosec] 20 mg PO BID 12/19/13 Simvastatin [Zocor] 40 mg PO QHS 12/19/13 Topiramate [Topamax] 50 mg PO BID 12/19/13 Albuterol Aerosols [Ventolin Aerosols] 2.5 mg INHALATION Q4H PRN PRN 05/09/14 Glucosam/Kiran-Msm1/C/Cricket/Bosw [Osteo Bi-Flex Caplet] 1 each PO BID 05/09/14 Insulin NPH Human [Humulin N Pen] 60 units SC DAILY@0730 05/09/14 Insulin Regular, Human [Novolin R] 20 unit SC BIDAC 05/09/14 Aspirin [Aspirin, Baby] 81 mg PO DAILY@0800 08/26/18 Budesonide/Formoterol 160/4.5 [Symbicort 160/4.5 Mcg Inhaler (SP)] 1 puff INHALATION BID 08/26/18 Paroxetine HCl 30 mg PO DAILY 08/26/18 Phenobarbital 30 mg PO TID 08/26/18 Amlodipine [Norvasc] 10 mg PO DAILY #0 08/28/18 Cetirizine HCl [Zyrtec] 10 mg PO DAILY PRN PRN #0 08/28/18 Tizanidine HCl [Zanaflex] 2 mg PO Q8H PRN PRN #20 tab 08/28/18 Insulin NPH Human [Humulin N Pen] 40 units SC QHS 07/10/20 Lamotrigine BID 07/10/20 Vitamin D3 1 tab PO DAILY 07/10/20 Hydrocodone/Acetaminophen [[place] 5-325 Tablet] 1 ea PO [id number] 5 Days #20 tab 07/13/20 Following Prescriptions Were Given to Patient: Hydrocodone/Acetaminophen [[place] 5-325 Tablet] 1 ea PO [id number] 5 Days #20 tab Transmission Status: Pending to [id number] - Please follow up with your Primary Care Physician in: As needed Please Follow Up With: Dr. Richard When: 1-2 weeks Medical Necessity - Tobacco Use Smoking Status: Never smoker Meaningful Use Info Meaningful Use Diagnoses (Choose all that apply): None applicable Inpatient E&M: [address] [facility]
--- NOTE | 2020-07-13 15:48 | PCA ---
Called [facility] office to get an apt set up for patient for 1 to 2 weeks from today for surgery. Office told me that they wont take her until she sees [facility] doctor [facility] to get a refferal due that she has [facility] insurance in order for them to cover her apt. Even though doctor maritza referred her to [facility] while in hospital. Called [facility] myself and got answering service left a detailed message to call pt or call this number at hospital. Informed patient on what she has to do at this time
--- NOTE | 2020-07-13 16:13 | CASEMGMT ---
Social Work Note Pt has discharge in for today. SW back in to speak with pt. Pt states she feels better and current depressive symptoms are being well managed. Pt states her conversation with the community health program coordinator went really well and she is feeling good. Pt denied any current suicidal/homicidal thoughts/plans/ideations. Pt denied additional needs or concerns at this time. Melida Leo FREELANCE COURT REPORTER, SENIOR LINUX UNIX ENGINEER
[2020-07-13 17:40] LABS: Bedside Glucose 161 mg/dL (70-110)
--- NOTE | 2020-07-13 19:28 | NURSING ---
This RN spoke with Dr Richard, he reports that he was unable to see pt today but that he can see pt in office when she is DC home. Aria, medical assistant secretary set up appointment with Dr Richard in office for 07/14 at 1030. however, per Dr Richard's office, pt will be fully financially responsible for appointment unless she has referral from a [facility] physician. explained to pt and she stated that I will take care of that. but this RN reassured pt that we could reach out to [facility] tomorrow to help facilitate that referral. pt was initially planning to DC home this evening, but upon further discussion with pt and family, the family was not yet set up to have someone stay with pt 04/03 for assistance. they request that pt be DC tomorrow 07/14. in discussion of transportation home, pt asked about setting up ambulance transport, but family was going to look at options in providing transportation. please reassess tomorrow morning for transportation plan. Dr Oshea updated on all of above and is ok with patient staying tonight and completing further discharge planning tomorrow.
[2020-07-13] MEDS: Atorvastatin Calcium 20 MG Tablet PO (21:57)
[2020-07-14] VITALS (9 sets, daily range): BP systolic 151–177; BP diastolic 70–87; PULSE 85–100; RESP 18–20; TEMP 36.4–36.8; O2SAT 96–98
[2020-07-14] MEDS: Acetaminophen 325 MG Tablet 650 MG PO ×3 (02:51→22:22)
[2020-07-14 06:00] LABS: Bedside Glucose 139 mg/dL (70-110)
[2020-07-14] MEDS: Phenobarbital 32.4 MG Tablet PO ×3 (06:15→22:22)
[2020-07-14] MEDS: Insulin Lispro 100 UNIT/ML INSULN.PEN SC ×4 (06:31→22:33)
[2020-07-14] MEDS: Insulin Lispro 100 UNIT/ML INSULN.PEN 12 UNIT SC ×2 (06:31→17:50)
[2020-07-14 07:01] LABS: Bedside Glucose 208 mg/dL (70-110)
[2020-07-14] MEDS: Budesonide Respules 0.5 MG/2 ML AMPUL.NEB. INHALATION ×2 (07:16→20:50)
[2020-07-14] MEDS: Albuterol 2.5 MG/3 ML VIAL.NEB. INHALATION ×3 (07:16→20:50)
[2020-07-14] MEDS: Insulin NPH Human 100 UNITS/ML PEN 70 UNITS SC (07:23)
[2020-07-14 07:59] LABS: Absolute Lymphocyte Count 3.39 X10^3/uL (0.83-4.51); Absolute Neutrophil Count 6.2 X10^3/uL (2.0-7.7); Basophil# 0.15 X10^3/uL; Basophil% 1.4 % (0-1); Eosinophil# 0.22 X10^3/uL; Hematocrit 37.6 % (37-47); Hemoglobin 12.5 g/dL (12.0-15.0); Lymphocyte # 3.39 X10^3/ul (4.0); Lymphocyte % 31.2 % (19-41); Mean Corp Hgb Conc 33.2 g/dL (32-36); Mean Corpuscular Hgb 29.4 pg (27.0-32.0); Mean Corpuscular Volume 88.5 fL (81-99); Mean Platelet Vol. 11.1 fl (6.2-12.0); Monocyte# 0.85 X10^3/uL; Monocyte% 7.8 % (0-10); NRBC Flagged by Analyzer 0 % (0-5); Neutrophil # 6.21 X10^3/uL (2.7-7.7); Neutrophil % 57.2 % (47-70); Platelet Count 382 K/mm3 (150-450); RBC Distribution Width CV 12.7 % (11.6-14.6); Red Blood Count 4.25 M/mm3 (4.2-5.4); White Blood Count 10.9 K/mm3 (4.4-11.0)
[2020-07-14 08:17] LABS: ALB/GLOB Ratio 0.5 RATIO (0.9-2.4); AST(SGOT) 17 U/L (15-37); Alanine Aminotransfer ALT/SGPT 10 U/L (13-56); Albumin, Serum 2.4 g/dL (3.2-5.0); Alkaline Phosphatase 123 U/L (45-117); Anion Gap 7 (5-15); BUN 11 mg/dL (7-18); BUN/Creat Ratio 15.8 RATIO (10-20); Chloride 104 mmol/L (98-107); EST Glomerular Filtration Rate 88 mL/min (>60); Est Glom Filt Rate - Afr Amer 107 mL/min (>60); Globulin 4.4 g/dL (2.2-4.2); Glucose 178 mg/dL (74-106); Potassium 3.7 mmol/L (3.5-5.1); Protein, Total 6.8 g/dL (6.4-8.2); Sodium Level 135 mmol/L (136-145)
[2020-07-14] MEDS: Polyethylene Glycol 3350 17 GM PACKET PO (09:38)
[2020-07-14] MEDS: Pantoprazole Sodium 20 MG Tablet PO ×2 (09:38→22:25)
[2020-07-14] MEDS: Topiramate 50 MG Tablet PO ×2 (09:38→22:26)
[2020-07-14] MEDS: amLODIPine 10 MG Tablet PO (09:39)
[2020-07-14] MEDS: Aspirin 81 MG TAB.CHEW PO (09:39)
[2020-07-14] MEDS: Lidocaine 5% Patch 2 PATCH TOPICAL (09:39)
[2020-07-14] MEDS: Ondansetron 4 MG/2 ML Vial IV (09:39)
[2020-07-14] MEDS: PARoxetine 10 MG Tablet 30 MG PO (09:39)
[2020-07-14] MEDS: Enoxaparin 40 MG/0.4 ML Syringe SC ×2 (09:39→22:23)
[2020-07-14] MEDS: Senna/Docusate Sodium 1 Tablet PO ×2 (09:39→22:24)
[2020-07-14] MEDS: 0.9% Saline Lock 10 ML Syringe IV (09:39)
[2020-07-14] MEDS: oxyCODONE 5 MG Tablet 10 MG PO ×2 (09:40→15:21)
--- NOTE | 2020-07-14 10:25 | CASEMGMT ---
JUNIOR MORROW called and spoke to Froylan PACHECO at [place] for Dr. Hairston. Froylan confirms that he received fax with clinical information for ortho referral. Froylan states that he will forward referral to Dr. Hairston for approval and then submit to Kem Anguiano for approval. Froylan provide with contact information. CRISTHIAN will continue to follow this patient and plan for a safe discharge.
[2020-07-14] MEDS: lamoTRIgine 150 MG Tablet 300 MG PO ×2 (10:58→22:26)
--- NOTE | 2020-07-14 11:08 | NURSING ---
Received call from personnel representative stating pt was sitting on floor. Pt was attempting to use the BSC on her own and slid out of the chair. Call light was in reach. No chair alarm was in use. Pt did not hit anything and Vital signs were stable. Dr. Dayo eric Assisted to BSC and back to bed with chair alarm on and call light within reach.
--- NOTE | 2020-07-14 11:19 | CASEMGMT ---
Social Work Note SW updated that pt is now agreeable to SNF. SW in to speak with pt. Pt states I don't want to go to a SNF but I was told the [facility] would [facility] one [facility] for me in [place]. [facility] [facility] [place] SW updated pt that this worker would need to make referral and see if they have any beds available/could accept or not. SW informed pt that this worker would then need to contact [place] to determine process and eligibility for SNF for pt. Pt states understanding. BRANDI placed a call to [facility] and left message for Jennifer in admissions. BRANDI placed a call to [facility] [place] [facility] and left message informing her pt wishes to discharge to SNF, asked process, and any costs for pt for pt to admit to SNF. Melida Leo LINK TRAINER MECHANIC, PRODUCT DEVELOPMENT CONSULTANT
--- NOTE | 2020-07-14 11:34 | PN_ITS ---
Patient Problems: Active and Suspected Problems (Last Reviewed 07/10/20 @ 04:[address] Ranjeet Richardson MD) Fall (Acute) Proximal humerus fracture (Acute) Shoulder fracture, right (Acute) Subjective: Discharge was held as pt did not have help at home arranged as she had indicated to us per d/w daughter. She slid to the floor today trying to get up to use the bathroom. No injuries. She is now willing to go to SNF. Still c/o pain but has not yet tried any narcotics for pain. Will try mm relaxant if ordered. Vitals/I&O's: Vital Signs Temp Pulse Resp BP Pulse Ox 97.6 F L 100 20 H 151/87 H 98 07/14/20 09:34 07/14/20 10:48 07/14/20 10:48 07/14/20 10:48 07/14/20 10:48 Oxygen Flow Rate (L/min) 2 Oxygen Delivery Method Room Air Weight: 121.3 kg Body Mass Index (BMI) 43.1 Finger Stick Blood Glucose 198 Intake and Output for Last 24 Hours 07/12/20 07/13/20 07/14/20 23:59 23:59 23:59 Intake Total 2350 / 2350 3450 / 3450 1160 / 1160 Output Total 2300 / 2300 3500 / 3500 2150 / 2150 Balance 50 / 50 -50 / -50 -990 / -990 General: Alert, Oriented x3, Cooperative, No apparent distress, Well developed, Well nourished, - - sitting up in a chair c/o R arm pain HEENT: Atraumatic, PERRLA, EOMI, Normocephalic, EAC Clear Oral: Moist Mucosa Lungs: Clear to auscultation, Normal air movement, No rhonchi, No wheeze, No rales Cardiovascular: Regular rate, Regular Rhythm, Normal S1, Normal S2, No murmurs, No Ectopic Activity, No rub noted, No Gallop Abdomen: Bowel Sounds Present, Soft, Non Tender, Non-Distended, Obese Extremities: No clubbing, No cyanosis, No edema, Peripheral Pulses Normal, - - ecchymosis R UE at axilla area, arm is not in sling Skin: No rashes, No breakdown Musculoskeletal: No Tenderness to Palpation of Joints or Extremities, No Muscle Wasting, Tenderness - R shoulder region Neurological: Cranial nerves II-XII grossly intact, Neuro grossly intact Psych/Mental Status: Anxious, Flat Affect Microbiology Past 72 Hours 07/12/20 16:10 Mucosa - Nose SARS-CoV-2 Antigen (Rapid) - Final Laboratory Results 07/13/20 12:04: POC Glucose 131 H 07/13/20 17:32: POC Glucose 161 H 07/13/20 22:12: POC Glucose 139 H 07/14/20 06:23: POC Glucose 208 H 07/14/20 07:35: WBC 10.9, RBC 4.25, Hgb 12.5, Hct 37.6, MCV 88.5, MCH 29.4, MCHC 33.2, RDW Std Deviation 41.0, RDW Coeff of Linda 12.7, Plt Count 382, MPV 11.1, Immature Gran % (Auto) 0.400, Neut % (Auto) 57.2, Lymph % (Auto) 31.2, [place] % (Auto) 7.8, Eos % (Auto) 2.0, Baso % (Auto) 1.4 H, Absolute Neuts (auto) 6.2, Absolute Lymphs (auto) 3.39, Nucleated RBC % 0 07/14/20 07:35: Sodium 135 L, Potassium 3.7, Chloride 104, Carbon Dioxide 24.0, Anion Gap 7, BUN 11, Creatinine 0.70, Estim Creat Clear Calc 49.00, Est GFR (MDRD) Af Amer 107, Est GFR (MDRD) Non-Af 88, BUN/Creatinine Ratio 15.8, Glucose 178 H, Calcium 9.0, Total Bilirubin 0.70, AST 17, ALT 10 L, Alkaline Phosphatase 123 H, Total Protein 6.8, Albumin 2.4 L, Globulin 4.4 H, Albumin/Globulin Ratio 0.5 L Current Medications Acetaminophen (Acetaminophen 325 Mg Tablet) 650 mg PO Q6H PRN PRN PRN Reason: Pain Score 1-10/Temp > 100.7 F Last Admin: 07/14/20 09:39 Dose: 650 mg Documented by: Albuterol Sulfate (Albuterol 2.5 Mg/3 Ml Vial.Neb.) 2.5 mg INHALATION Q4H PRN PRN PRN Reason: sob/Wheezing Albuterol Sulfate (Albuterol 2.5 Mg/3 Ml Vial.Neb.) 2.5 mg INHALATION Q6HWA.RT [facility] Last Admin: 07/14/20 07:16 Dose: 2.5 mg Documented by: Amlodipine Besylate (Amlodipine 10 Mg Tablet) 10 mg PO DAILY [facility] Last Admin: 07/14/20 09:39 Dose: 10 mg Documented by: Aspirin (Aspirin 81 Mg Tab.Chew) 81 mg PO DAILY@0800 [facility] Last Admin: 07/14/20 09:39 Dose: 81 mg Documented by: Atorvastatin Calcium (Atorvastatin Calcium 20 Mg Tablet) 20 mg PO QHS [facility] Last Admin: 07/13/20 21:57 Dose: 20 mg Documented by: Budesonide (Budesonide Respules 0.5 Mg/2 Ml Ampul.Neb.) 0.5 mg INHALATION Q12H.RT [facility] Last Admin: 07/14/20 07:16 Dose: 0.5 mg Documented by: Cholecalciferol (Cholecalciferol (Vit D3) 1,000 Unit (25mcg)) 1,000 unit PO DAILY [facility] Last Admin: 07/14/20 09:39 Dose: 1,000 unit Documented by: Dextrose (Dextrose 50%-Water 25 Gm/50 Ml Disp.Syrin) 0 gm IV X1 PRN; Protocol PRN Reason: Hypoglycemia Enoxaparin Sodium (Enoxaparin 40 Mg/0.4 Ml Syringe) 40 mg SC BID [facility] Last Admin: 07/14/20 09:39 Dose: 40 mg Documented by: Glucagon (Glucagon 1 Mg/Ml Syringe) 1 mg IM .X1 PRN PRN Reason: Hypoglycemia Hydromorphone HCl (Hydromorphone 1 Mg/Ml Syringe) 1 mg IV Q4H PRN PRN PRN Reason: Pain Score 6-10 Last Admin: 07/11/20 08:09 Dose: 1 mg Documented by: Ibuprofen (Ibuprofen 400 Mg Tablet) 400 mg PO Q6H PRN PRN PRN Reason: Pain Score 1-10 Last Admin: 07/13/20 06:30 Dose: 400 mg Documented by: Insulin Human Lispro (Insulin Lispro 100 Unit/Ml Insuln.Pen) 0 unit SC ACHS [facility]; Protocol Last Admin: 07/14/20 06:31 Dose: 4 u Documented by: Insulin Human Lispro (Insulin Lispro 100 Unit/Ml Insuln.Pen) 12 unit SC TIDAC [facility] Last Admin: 07/14/20 06:31 Dose: 12 u Documented by: Insulin Human NPH (Insulin Nph Human 100 Units/Ml Pen) 70 units SC DAILY@0700 [facility] Last Admin: 07/14/20 07:23 Dose: 70 u Documented by: Insulin Human NPH (Insulin Nph Human 100 Units/Ml Pen) 60 units SC QHS [facility] Last Admin: 07/13/20 22:14 Dose: Not Given Documented by: Lamotrigine (Lamotrigine 150 Mg Tablet) 300 mg PO BID [facility] Last Admin: 07/14/20 10:58 Dose: 300 mg Documented by: Lidocaine (Lidocaine 5% Patch) 2 patch TOPICAL DAILY [facility]; Protocol Last Admin: 07/14/20 09:39 Dose: 2 patch Documented by: Loratadine (Loratadine 10 Mg Tablet) 10 mg PO DAILY PRN PRN PRN Reason: NASAL Allergy/congestion Last Admin: 07/10/20 02:22 Dose: 10 mg Documented by: Melatonin (Melatonin 3 Mg Tablet) 3 mg PO QHS PRN PRN PRN Reason: INSOMNIA Last Admin: 07/12/20 21:41 Dose: 3 mg Documented by: Nystatin (Nystatin Powder 15gm Bottle) 1 applic TOPICAL BID [facility]; Protocol Ondansetron HCl (Ondansetron 4 Mg/2 Ml Vial) 4 mg IV Q8H PRN PRN PRN Reason: NAUSEA/VOMITING Last Admin: 07/14/20 09:39 Dose: 4 mg Documented by: Oxycodone HCl (Oxycodone 5 Mg Tablet) 10 mg PO Q4H PRN PRN PRN Reason: Pain Score 4-5 Last Admin: 07/14/20 09:40 Dose: 10 mg Documented by: Pantoprazole Sodium (Pantoprazole Sodium 20 Mg Tablet) 20 mg PO BID [facility] Last Admin: 07/14/20 09:38 Dose: 20 mg Documented by: Paroxetine HCl (Paroxetine 10 Mg Tablet) 30 mg PO DAILY [facility] Last Admin: 07/14/20 09:39 Dose: 30 mg Documented by: Phenobarbital (Phenobarbital 32.4 Mg Tablet) 32.4 mg PO TID [facility] Last Admin: 07/14/20 06:15 Dose: 32.4 mg Documented by: Polyethylene Glycol (Polyethylene Glycol 3350 17 Gm Packet) 17 gm PO BID [facility] Last Admin: 07/14/20 09:38 Dose: 17 gm Documented by: Senna/Docusate Sodium (Senna/Docusate Sodium 1 Tablet) 1 tablet PO BID [facility] Last Admin: 07/14/20 09:39 Dose: 1 tablet Documented by: Sodium Chloride (0.9% Saline Lock 10 Ml Syringe) 10 - 40 ml IV UD PRN PRN Reason: SALINE FLUSH Last Admin: 07/14/20 09:39 Dose: 10 ml Documented by: Tizanidine HCl (Tizanidine Hcl 2 Mg Tablet) 2 mg PO Q8H PRN PRN PRN Reason: muscle pain/spasm Last Admin: 07/13/20 09:23 Dose: 2 mg Documented by: Topiramate (Topiramate 50 Mg Tablet) 50 mg PO BID [facility] Last Admin: 07/14/20 09:38 Dose: 50 mg Documented by: STROKE Vital Signs/Narrative: Vital Signs Temp Pulse Resp BP BP Pulse Ox 07/14/20 10:48 100 20 H 151/87 H 98 07/14/20 09:34 97.6 F L 93 20 H 168/72 H 98 Medical Necessity - Tobacco Use Smoking Status: Never smoker Assessment/Plan All Active Problems (Last Reviewed 07/10/20 @ 04:[address] Ranjeet Richardson MD) Fall (Acute) Proximal humerus fracture (Acute) Shoulder fracture, right (Acute) Acute R Humeral Head/Neck Comminuted and Displaced Fracture -pain meds encouraged -bowel regimen -OR was canceled per nsg and pt to be evaluated by Dr. Richard -will see Dr. Richard as outpt in 2 weeks and will need a reverse total shld replacement -Patient's risk score on the ACS NSQIP score was above average, cardiology consulted -patient at low risk for planned procedure Hypokalemia -resolved DM-2 -NPH for basal--> 70 in am and 60 at HS -BGT better overall -continue mealtime R as is -SSI HTN/HPL -continue home meds GERD -PPI Seizure d/o -continue phenobarb and topamax MO BMI 43.2 -recommend wgt loss Depression continue Paroxetine DVT prophylaxis -Lovenox BID -SCD Code Status -DNR CCA no ETT Dispo -now aggreable to SNF -attempted to call daughter at [phone] @ 1141 am on 07/14/2020 and no a nswer--> g left Inpatient E&M: 87263 Subs Hosp L2
--- NOTE | 2020-07-14 13:07 | CASEMGMT ---
Social Work Note BRANDI received call from pt's daughter Brenna. [place] requesting clarification on discharge planning. BRANDI informed Valentina that pt this morning was agreeable to SNF placement so this worker is currently working on placement. Pt states well my mother called me yesterday saying she was going to discharge home and asked me to come get her, but I was not able to do so. Valentina states she is home schooling her kids at this time and unable to just drop everything to transport pt. Valentina states she was under the impression that pt was going to stay with her brother Michael and his , who is an RN, Madhuri. Valentina states she will make a call to her brother Michael and his to confirm discharge plans. Valentina states she doesn't want pt to go to SNF due to COVID. Valentina states she thinks her mom is confused and is having a break down. SW provided Valentina with this worker's phone number to call this worker when she has arranged 24/7 care for pt in the home. Valentina states she will do so. BRANDI then received a call from pt's sister in law Madhuri, Michael's . Madhuri not listed on demographics. SW in to speak with pt. BRANDI informed pt that her sister in law Madhuri is on the phone, requesting update on pt's discharge. Pt gave this worker permission to speak to Madhuri and provide update. SW informed pt that her family is adamant that they don't want pt to go to SNF and they want pt to return home. Pt states well that is what I want to do too. SW informed pt that earlier she had told this SW that she wanted to go to SNF. Pt states well what happened with that. SW informed pt that this worker is still waiting to hear from SNF and [facility]. Pt again states she would prefer to return home. Pt then states she has to go to the bathroom. RADAR SCIENTIST updated. BRANDI spoke with Madhuri. Madhuri states she spoke with Valentina and pt and was under the impression pt was going to return home with either her nephew, who is 18, staying with her or pt stating with her Madhuri and Michael or Miguel Ángel. BRANDI informed Madhuri that pt will need 24/7 care at discharge and if family wishes to do that, then it needs to be arranged as pt is medically ready for discharge today. Madhuri state she will also call pt's family to arrange / care. BRANDI asked for Madhuri or Valentina to call this worker back once discharge plans have been confirmed. Madhuri then asked for update on pt's shoulder/ why didn't pt have surgery. BRANDI handed phone to RN. Plan: Pt's family now requesting to take pt home. BRANDI waiting for call back from family to confirm pt will have family available 04/03. Melida Leo PROFESSOR OF FRENCH, ACTIVE DIRECTORY ARCHITECT
[2020-07-14 13:35] LABS: Bedside Glucose 199 mg/dL (70-110)
[2020-07-14] MEDS: Nystatin Powder 15gm Bottle 1 APPLIC TOPICAL ×2 (14:06→22:22)
[2020-07-14] MEDS: cycloBENZAPRine HCl 5 MG TABLET PO ×3 (14:07→22:50)
[2020-07-14] MEDS: tiZANidine HCl 2 MG Tablet PO (14:34)
--- NOTE | 2020-07-14 16:45 | CASEMGMT ---
Social Work Note BRANDI received call from Madhuri stating after further consideration and pt's current needed LOC, pt's family is not able to provide pt with proper care and requests pt go to SNF. Madhuri states she spoke with pt about going to SNF and pt is agreeable. BRANDI updated by RN that when pt was on the phone, pt was tearful and mentioned just wanting to , and be with my sister. SW in to speak with pt. BRANDI updated pt that pt's family is now requesting SNF. Pt confirms she spoke with family and agreeable to SNF. SW informed pt that there are two local SNF that are [facility] contracted, [facility] in [place] and [facility] in [place]. Pt states she is agreeable to either one as long as they don't have COVID. SW informed pt that this worker will send referrals to both places and see which one can accept and will also ask about COVID. Pt states understanding. SW spoke with pt about her afternoon, and the multiple phone calls with family and the constant change of plans. SW provided support to pt. SW asked pt about her comment of wanting to . Pt states I have just lost so many people lately, I am feeling down. BRANDI spoke with pt regarding grief and depression. Pt states that she lost her sister Janey about two months ago and she does want to be with her. Pt also states she has a baby in [facility] and her sister Janey is taking care of the baby. Pt denied any current suicidal thoughts/plans/ideations. Pt states I would never do that, I am too much of a Catholic, [place] wouldn't like me. Again, pt denied any current suicidal thoughts/plans/ideations. BRANDI placed a call to Annette at [facility], Annette willing to review referral. BRANDI received call from Luh at [facility] who also agreeable to review referral. BRANDI faxed referral to both [facility] and [facility]. BRANDI placed a call to Vance PAZ and updated her that pt is now agreeable to SNF. Vance informed this worker to go ahead and fax over [facility] form, H+P, and PT/OT. Damaso states that getting pt approved skilled does take some time. BRANDI faxed requested information to Vance. BRANDI updated RN. Plan: SNF pending acceptance and VA approval Melida Leo PERIANESTHESIA RN, GEOGRAPHIC INFORMATION SYSTEM SURVEYOR
[2020-07-14 17:00] LABS: Bedside Glucose 207 mg/dL (70-110)
[2020-07-14] MEDS: Atorvastatin Calcium 20 MG Tablet PO (22:25)
[2020-07-14] MEDS: Insulin NPH Human 100 UNITS/ML PEN 60 UNITS SC (22:34)
[2020-07-14 22:41] LABS: Bedside Glucose 194 mg/dL (70-110)
[2020-07-15] VITALS (8 sets, daily range): BP systolic 161–188; BP diastolic 72–88; PULSE 82–95; RESP 16–20; TEMP 36.6–36.9; O2SAT 94–97
[2020-07-15] MEDS: Phenobarbital 32.4 MG Tablet PO ×2 (05:39→13:43)
[2020-07-15 06:46] LABS: Bedside Glucose 86 mg/dL (70-110)
[2020-07-15] MEDS: Albuterol 2.5 MG/3 ML VIAL.NEB. INHALATION ×2 (07:15→20:04)
[2020-07-15] MEDS: Budesonide Respules 0.5 MG/2 ML AMPUL.NEB. INHALATION ×2 (07:16→20:04)
[2020-07-15] MEDS: lamoTRIgine 150 MG Tablet 300 MG PO (08:34)
[2020-07-15] MEDS: Pantoprazole Sodium 20 MG Tablet PO (08:35)
[2020-07-15] MEDS: Senna/Docusate Sodium 1 Tablet PO (08:35)
[2020-07-15] MEDS: Aspirin 81 MG TAB.CHEW PO (08:35)
[2020-07-15] MEDS: amLODIPine 10 MG Tablet PO (08:35)
[2020-07-15] MEDS: Lidocaine 5% Patch 2 PATCH TOPICAL (08:36)
[2020-07-15] MEDS: Enoxaparin 40 MG/0.4 ML Syringe SC (08:36)
[2020-07-15] MEDS: PARoxetine 10 MG Tablet 30 MG PO (08:37)
[2020-07-15] MEDS: Nystatin Powder 15gm Bottle 1 APPLIC TOPICAL ×2 (08:37→20:20)
[2020-07-15] MEDS: Topiramate 50 MG Tablet PO (08:38)
--- NOTE | 2020-07-15 09:45 | CASEMGMT ---
Social Work Note SW received call from Annette at [facility] stating [facility] is able to accept pt. SW in to speak with pt. SW updated pt that [facility] is [place], is [facility] connected and able to accept pt. SW informed pt that this worker is still waiting to hear from [facility] in [place]. SW asked pt if she would like to stay in [place] for SNF or wait for determination from [facility] in [place]. Pt states she prefers to stay in [place] for SNF. SW informed pt that VA will need to review and SW will need to await determination from VA before pt could discharge. SW informed pt that this worker is not sure when VA will respond. SW informed pt that if this worker doesn't hear from VA today, pt will be at [facility] through the weekend. BRANDI placed a call to Luh at [facility] and updated her to disregard referral. BRANDI placed a call to Annette at [facility] stating pt is agreeable to [facility]. BRANDI placed a call to [facility] and left message that [facility] is able to accept pt. BRANID asked Vance for process, time frame of when VA will make determination for SNF. BRANDI received call from Vance stating she received paperwork from this worker yesterday, has the referral submitted for VA to review. Vance states the time frame and process is hard to tell. Vance states VA may ask for more clinicals, may just make a determination without more clinicals, it just depends. Vance states if she had to guess, determination will likely not be made today. Vance states she will call both this worker and Annette at [facility] once determination has been made. Plan: [facility] pending VA approval Melida Leo HEADING AND PRIMING TOOL SETTER, FLEET SERVICE CLERK
[2020-07-15 11:51] LABS: Bedside Glucose 185 mg/dL (70-110)
[2020-07-15] MEDS: Insulin Lispro 100 UNIT/ML INSULN.PEN SC (13:36)
[2020-07-15] MEDS: Insulin Lispro 100 UNIT/ML INSULN.PEN 12 UNIT SC (13:37)
[2020-07-15] MEDS: 0.9% Saline Lock 10 ML Syringe IV (13:43)
[2020-07-15] MEDS: HYDROmorphone 1 MG/ML Syringe IV (13:43)
--- NOTE | 2020-07-15 13:50 | CASEMGMT ---
Addendum entered by Melida Leo 07/15/20 17:08: BRANDI received call from Annette at [facility] stating she also received approval from [facility] and pt can admit to [facility] today. Physician updated. SW updated pt that [facility] has approved pt to admit to [facility] and pt will discharge today. Pt requests transportation be arranged via cot. Pt requested that this worker call her daughter Valentina to update. BRANDI faxed completed discharge paperwork to [facility] including transfer to extended care facility, signed medication list, any scripts, COVID screening tool and HENS. Original in SNF folder and copy on pt's chart. BRANDI completed convalescent 7000 in HENS. Original in SNF folder and copy on pt's chart. SW accessed trip assist and earliest [facility] can transport pt is 8:30pm. Transportation form completed and placed on SNF folder and copy on pt's chart. BRANDI updated Pt and RN on transportation time. BRANDI placed a call to Annette at [facility] and updated her on transportation time. BRANDI placed a call to pt's daughter Valentina and updated her on discharge and transportation time to [facility]. Valentina states understanding. Plan: Discharge to [facility] skilled with [facility] transporting pt via cot at 8:30pm Melida GRANT, LESLIE Addendum entered by Melida Leo 07/15/20 15:37: SW received call from [facility] stating pt was approved to admit skilled to [facility] today. Vance states she also placed a call to Annette at [facility] and left message letter her know. Vance states [facility] should've received a confirmation email stating pt was approved. BRANDI placed a call to Annette at [facility] and left message for confirmation that [facility] is able to accept pt today. BRANDI waiting for confirmation from Annette at [facility]. Original Note: Social Work Note BRANDI spoke with Annette at [facility] who states she hasn't heard anything from the [place] yet. BRANDI also informed Annette that this worker hasn't heard anything from the [place] either. Melida GRANT, PLASTERER MAINTENANCE
[2020-07-15] MEDS: tiZANidine HCl 2 MG Tablet PO (15:49)
[2020-07-15] MEDS: oxyCODONE 5 MG Tablet 10 MG PO (15:49)
--- NOTE | 2020-07-15 16:02 | PCM.TXEXTCAR ---
- Diet 07/13/20 07:57 Diet: Consistent Carb - Calorie Controlled Dietary Modifications:: Consistent Carbohydrate Is pt able to select menu?: No How many daily calories?: 2000 calorie - Routine Orders/Code Status Suppository Type: Dulcolax 10mg Suppository Frequency: Daily PRN O2 Frequency: PRN Keep PO Greater than or Equal to (%): 92 Routine Lab Work: CBC, BMP Code Status: DNRCC-A - no ETT - Therapies Weight Bearing: Non weight bearing Extremity Affected:: Right Upper - sling at all times Physical Therapy: Eval and Treat Occupational Therapy: Eval and Treat - Allergies/Procedures Done in Hospital Allergies/Adverse Reactions: Allergies ciprofloxacin Allergy (Verified 09/10/18 16:55) Unknown hydrochlorothiazide Allergy (Verified 09/10/18 16:55) Unknown pentazocine [From [facility]] Allergy (Verified 09/10/18 16:55) Unknown Procedures: None - Type of Care/Length of Stay Estimated LOS: Convalescent Care Less Than 30 days Type of Care Needed: Skilled Rehab Potential: Fair Prognosis: Good - Additional Orders/Day of Discharge Day of Discharge: 07/15/20 - Dietary and Speech Recommendations Dietitian Recommendations/Changes: Will change diet to 2000 calorie/cardiac with consistent-carbohydrate. - Follow Up Care [facility] - Please follow up with your Primary Care Physician in: As needed Please Follow Up With: Dr. Richard When: 1-2 weeks
--- NOTE | 2020-07-15 16:17 | PCM.DC.SUM ---
Discharge Date and Diagnosis - Problem List Patient Problems: Active and Suspected Problems (Last Reviewed 07/10/20 @ 04:[address] Ranjeet Richardson MD) Fall (Acute) Proximal humerus fracture (Acute) Shoulder fracture, right (Acute) Date of Admission: 07/10/20 Date of Discharge: 07/15/20 - Primary Discharge Diagnosis Acute Problems: Active Problems (Last Reviewed 07/10/20 @ 04:[address] Ranjeet Richardson MD) Fall (Acute) Proximal humerus fracture (Acute) Shoulder fracture, right (Acute) - Secondary Discharge Diagnosis Chronic Problems: Chronic Problems (Last Reviewed 07/10/20 @ 04:[address] Ranjeet Richardson MD) Hypertension (Chronic) Diabetes mellitus type 2 in obese (Chronic) Dyslipidemia (Chronic) Chronic stable Asthma (Chronic) Hospital Course and Treatment Imaging Results: HISTORY: RT SHOULDER PAIN AFTER A FALL,FRACTURE RT HUMERUSHX:ASTHMA,DIABETES,HTN EXAMINATION: CT right shoulder W/O Contrast Injection TECHNIQUE: Helically acquired images were obtained of the right shoulder. 2-D reformats were performed by the technologist. A radiation dose optimization technique was used for this scan. IV Contrast dosage and agent: None COMPARISON: Right humerus 07/09/2020 FINDINGS: Comminuted fracture of the right humeral head and neck. The main component of the fracture is a transverse fracture of the humeral surgical neck and with fracture displacement and overriding of fracture fragments. The major distal humeral fragment shows approximately 4 cm of proximal displacement together with anterior and medial displacement. The distal fracture fragment abuts the right subcoracoid region. The right humeral head is not dislocated and shows clockwise rotation and accompanied by prominent valgus angular deformity of the distal humerus. Nondisplaced fracture of the superior lateral right humeral head. The bicipital groove appears intact. The scapula and right glenoid appear intact. The right AC joint is preserved and not widened. No pneumothorax. Visualized right ribs appear intact. CT/Extremity Upper without Contra IMPRESSION: Right humeral head and neck comminuted, displaced fracture with valgus deformity. Details above. Individualized dose optimization techniques were used for this CT. at 0202 Reported and signed by: Jimenez Bosch MD Electronically Signed: Jimenez Bosch at 2:00 EST Tel , Service support , Orthopaedic Surgery Operations: None Summary of Care Provided: Ms Sarabia is a 70 year old F who presented to the ED on 07/10/2020 with R UE pain s/p a mechanical fall. She tripped and landed on her R shoulder. Xray in the ED showed a Displaced fracture of the R humeral surgical neck and a CT was done which showed Right humeral head and neck comminuted, displaced fracture with valgus deformity. She was seen by cardiology and cleared for the OR. The original plan was to take the pt to the OR on 07/12 or 07/13 but when ortho reviewed the CT further it was determined that a plate and screws could not be placed 2/2 osteopenia and she would need a reverse shoulder replacement. Dr. Richard felt that she would do better if she was given a couple of weeks to allow the edema to resolve before surgery so she was d/c home in stable condition with f/u at Dr. Richard's office in 2 weeks. She is reluctant to take pain meds and has been relying on APAP and NSAIDS. I did encourage her to use some narcotics PRN if the pain is bad and she was given a script for 5 days of Angela but instructed not to take them in conjunction with her APAP. Discharge DX Acute R Humeral Head/Neck Comminuted and Displaced Fracture Hypokalemia Pseudohyponatremia DM-2 HTN HPL GERD Seizure d/o MO Depression Discharge Time > 35' Patient Problems: Active and Suspected Problems (Last Reviewed 07/10/20 @ 04:[address] Ranjeet Richardson MD) Fall (Acute) Proximal humerus fracture (Acute) Shoulder fracture, right (Acute) - Physical Exam Vitals/I&O's: Vital Signs Temp Pulse Resp BP Pulse Ox 98.4 F 95 18 176/72 H 97 07/15/20 14:25 07/15/20 14:25 07/15/20 14:25 07/15/20 14:25 07/15/20 14:25 Oxygen Flow Rate (L/min) 2 Oxygen Delivery Method Room Air Weight: 121.3 kg Body Mass Index (BMI) 43.1 Finger Stick Blood Glucose 198 Intake and Output for Last 24 Hours 07/13/20 07/14/20 07/15/20 23:59 23:59 23:59 Intake Total 3450 / 3450 2760 / 2760 300 / 300 Output Total 3500 / 3500 2450 / 2450 400 / 400 Balance -50 / -50 310 / 310 -100 / -100 General: Alert, Oriented x3, Cooperative, No apparent distress, Well developed, Well nourished, - - MO WF sitting up in a chair watching TV, appears more comfortable today HEENT: Atraumatic, PERRLA, EOMI, Normocephalic Oral: Moist Mucosa, No Gingival or Mucosal Lesions/ Ulcerations Neck: Supple, Trachea Midline, Thyroid Normal Size and Texture Lungs: Clear to auscultation, Normal air movement, No rhonchi, No wheeze, No rales Cardiovascular: Regular rate, Regular Rhythm, Normal S1, Normal S2, No murmurs, No Ectopic Activity, No rub noted, No Gallop Abdomen: Bowel Sounds Present, Soft, Non Tender, Non-Distended, No Hepato-splenomegaly, Obese Extremities: No clubbing, No cyanosis, No edema, Capillary Refill Less than 3 Seconds, Peripheral Pulses Normal Skin: No rashes, No breakdown, - - ecchymosis R shold and chest wall Musculoskeletal: No Muscle Wasting, Tenderness - R UE Lymphatic: No Cervical, Supraclavicular, or Inguinal Adenopathy Neurological: Cranial nerves II-XII grossly intact, Neuro grossly intact Psych/Mental Status: Normal Affect, Appropriate Microbiology Past 72 Hours 07/12/20 16:10 Mucosa - Nose SARS-CoV-2 Antigen (Rapid) - Final Laboratory Results 07/14/20 16:54: POC Glucose 207 H 07/14/20 22:32: POC Glucose 194 H 07/15/20 06:41: POC Glucose 86 07/15/20 11:28: POC Glucose 185 H Current Medications Acetaminophen (Acetaminophen 325 Mg Tablet) 650 mg PO Q6H PRN PRN PRN Reason: Pain Score 1-10/Temp > 100.7 F Last Admin: 07/14/20 22:22 Dose: 650 mg Documented by: Albuterol Sulfate (Albuterol 2.5 Mg/3 Ml Vial.Neb.) 2.5 mg INHALATION Q4H PRN PRN PRN Reason: sob/Wheezing Albuterol Sulfate (Albuterol 2.5 Mg/3 Ml Vial.Neb.) 2.5 mg INHALATION Q6HWA.RT [facility] Last Admin: 07/15/20 07:15 Dose: 2.5 mg Documented by: Amlodipine Besylate (Amlodipine 10 Mg Tablet) 10 mg PO DAILY [facility] Last Admin: 07/15/20 08:35 Dose: 10 mg Documented by: Aspirin (Aspirin 81 Mg Tab.Chew) 81 mg PO DAILY@0800 [facility] Last Admin: 07/15/20 08:35 Dose: 81 mg Documented by: Atorvastatin Calcium (Atorvastatin Calcium 20 Mg Tablet) 20 mg PO QHS [facility] Last Admin: 07/14/20 22:25 Dose: 20 mg Documented by: Budesonide (Budesonide Respules 0.5 Mg/2 Ml Ampul.Neb.) 0.5 mg INHALATION Q12H.RT [facility] Last Admin: 07/15/20 07:16 Dose: 0.5 mg Documented by: Cholecalciferol (Cholecalciferol (Vit D3) 1,000 Unit (25mcg)) 1,000 unit PO DAILY [facility] Last Admin: 07/15/20 08:35 Dose: 1,000 unit Documented by: Cyclobenzaprine HCl (Cyclobenzaprine Hcl 5 Mg Tablet) 5 mg PO TID PRN PRN PRN Reason: pain/muscle spasms Last Admin: 07/14/20 22:50 Dose: 5 mg Documented by: Dextrose (Dextrose 50%-Water 25 Gm/50 Ml Disp.Syrin) 0 gm IV X1 PRN; Protocol PRN Reason: Hypoglycemia Enoxaparin Sodium (Enoxaparin 40 Mg/0.4 Ml Syringe) 40 mg SC BID [facility] Last Admin: 07/15/20 08:36 Dose: 40 mg Documented by: Glucagon (Glucagon 1 Mg/Ml Syringe) 1 mg IM .X1 PRN PRN Reason: Hypoglycemia Hydromorphone HCl (Hydromorphone 1 Mg/Ml Syringe) 1 mg IV Q4H PRN PRN PRN Reason: Pain Score 6-10 Last Admin: 07/15/20 13:43 Dose: 1 mg Documented by: Ibuprofen (Ibuprofen 400 Mg Tablet) 400 mg PO Q6H PRN PRN PRN Reason: Pain Score 1-10 Last Admin: 07/13/20 06:30 Dose: 400 mg Documented by: Insulin Human Lispro (Insulin Lispro 100 Unit/Ml Insuln.Pen) 0 unit SC ACHS [facility]; Protocol Last Admin: 07/15/20 13:36 Dose: 2 u Documented by: Insulin Human Lispro (Insulin Lispro 100 Unit/Ml Insuln.Pen) 12 unit SC TIDAC [facility] Last Admin: 07/15/20 13:37 Dose: 12 u Documented by: Insulin Human NPH (Insulin Nph Human 100 Units/Ml Pen) 70 units SC DAILY@0700 [facility] Last Admin: 07/15/20 06:49 Dose: Not Given Documented by: Insulin Human NPH (Insulin Nph Human 100 Units/Ml Pen) 60 units SC QHS [facility] Last Admin: 07/14/20 22:34 Dose: 60 u Documented by: Lamotrigine (Lamotrigine 150 Mg Tablet) 300 mg PO BID [facility] Last Admin: 07/15/20 08:34 Dose: 300 mg Documented by: Lidocaine (Lidocaine 5% Patch) 2 patch TOPICAL DAILY [facility]; Protocol Last Admin: 07/15/20 08:36 Dose: 2 patch Documented by: Loratadine (Loratadine 10 Mg Tablet) 10 mg PO DAILY PRN PRN PRN Reason: NASAL Allergy/congestion Last Admin: 07/10/20 02:22 Dose: 10 mg Documented by: Melatonin (Melatonin 3 Mg Tablet) 3 mg PO QHS PRN PRN PRN Reason: INSOMNIA Last Admin: 07/12/20 21:41 Dose: 3 mg Documented by: Nystatin (Nystatin Powder 15gm Bottle) 1 applic TOPICAL BID [facility]; Protocol Last Admin: 07/15/20 08:37 Dose: 1 applicatio Documented by: Ondansetron HCl (Ondansetron 4 Mg/2 Ml Vial) 4 mg IV Q8H PRN PRN PRN Reason: NAUSEA/VOMITING Last Admin: 07/14/20 09:39 Dose: 4 mg Documented by: Oxycodone HCl (Oxycodone 5 Mg Tablet) 10 mg PO Q4H PRN PRN PRN Reason: Pain Score 4-5 Last Admin: 07/15/20 15:49 Dose: 10 mg Documented by: Pantoprazole Sodium (Pantoprazole Sodium 20 Mg Tablet) 20 mg PO BID [facility] Last Admin: 07/15/20 08:35 Dose: 20 mg Documented by: Paroxetine HCl (Paroxetine 10 Mg Tablet) 30 mg PO DAILY [facility] Last Admin: 07/15/20 08:37 Dose: 30 mg Documented by: Phenobarbital (Phenobarbital 32.4 Mg Tablet) 32.4 mg PO TID [facility] Last Admin: 07/15/20 13:43 Dose: 32.4 mg Documented by: Polyethylene Glycol (Polyethylene Glycol 3350 17 Gm Packet) 17 gm PO BID [facility] Last Admin: 07/15/20 08:37 Dose: Not Given Documented by: Senna/Docusate Sodium (Senna/Docusate Sodium 1 Tablet) 1 tablet PO BID [facility] Last Admin: 07/15/20 08:35 Dose: 1 tablet Documented by: Sodium Chloride (0.9% Saline Lock 10 Ml Syringe) 10 - 40 ml IV UD PRN PRN Reason: SALINE FLUSH Last Admin: 07/15/20 13:43 Dose: 10 ml Documented by: Tizanidine HCl (Tizanidine Hcl 2 Mg Tablet) 2 mg PO Q8H PRN PRN PRN Reason: muscle pain/spasm Last Admin: 07/15/20 15:49 Dose: 2 mg Documented by: Topiramate (Topiramate 50 Mg Tablet) 50 mg PO BID [facility] Last Admin: 07/15/20 08:38 Dose: 50 mg Documented by: Discharge Activity: Return to Normal Activity, May Not Drive, May not drive while taking narcotic pain medications., - - R UE in sling Additional Activity Instructions:: Do NOT take Angela with Tylenol-please take one or the other Home Medications: Medications to take at Discharge Omeprazole [Prilosec] 20 mg PO BID 12/19/13 Simvastatin [Zocor] 40 mg PO QHS 12/19/13 Topiramate [Topamax] 50 mg PO BID 12/19/13 Albuterol Aerosols [Ventolin Aerosols] 2.5 mg INHALATION Q4H PRN PRN 05/09/14 Glucosam/Kiran-Msm1/C/Cricket/Bosw [Osteo Bi-Flex Caplet] 1 each PO BID 05/09/14 Insulin NPH Human [Humulin N Pen] 60 units SC DAILY@0730 05/09/14 Insulin Regular, Human [Novolin R] 20 unit SC BIDAC 05/09/14 Aspirin [Aspirin, Baby] 81 mg PO DAILY@0800 08/26/18 Budesonide/Formoterol 160/4.5 [Symbicort 160/4.5 Mcg Inhaler (SP)] 1 puff INHALATION BID 08/26/18 Paroxetine HCl 30 mg PO DAILY 08/26/18 Phenobarbital 30 mg PO TID 08/26/18 Amlodipine [Norvasc] 10 mg PO DAILY #0 08/28/18 Cetirizine HCl [Zyrtec] 10 mg PO DAILY PRN PRN #0 08/28/18 Tizanidine HCl [Zanaflex] 2 mg PO Q8H PRN PRN #20 tab 08/28/18 Insulin NPH Human [Humulin N Pen] 40 units SC QHS 07/10/20 Lamotrigine 300 mg PO BID 07/10/20 Vitamin D3 1 tab PO DAILY 07/10/20 Hydrocodone/Acetaminophen [Angela 5-325 Tablet] 1 ea PO [id number] 5 Days #20 tab 07/13/20 Lidocaine [Lidoderm Patch] 2 patch TOPICAL DAILY patch 07/15/20 cycloBENZAPRine HCl [Cyclobenzaprine HCl] 5 mg PO TID PRN PRN tab 07/15/20 Following Prescriptions Were Given to Patient: Hydrocodone/Acetaminophen [Angela 5-325 Tablet] 1 ea PO [id number] 5 Days #20 tab Transmission Status: Pending to [id number] Primary Care Physician: [facility] [Primary Care Provider] - Please follow up with your Primary Care Physician in: As needed Please Follow Up With: Dr. Richard When: 1-2 weeks Medical Necessity - Tobacco Use Smoking Status: Never smoker Meaningful Use Info Meaningful Use Diagnoses (Choose all that apply): None applicable Inpatient E&M: 12089 [facility]
[2020-07-15 17:21] LABS: Bedside Glucose 159 mg/dL (70-110)
--- NOTE | 2020-07-16 01:08 | NURSING ---
Late note: Ya called from [facility]. She wanted to get a script sent to their facility for Phenobarbital for this pt since Dr. Oshea did not write one. I advised her that the MD that discharged the pt was no longer here and that I was not sure if the hospitalist on [facility] would be willing to do so. I called Dr. Richardson and spoke with him twice about this situation. He was not comfortable writing a script in this situation and that was conveyed to Ya.
== END 2020-07-15 20:35 | disposition skilled nursing facility (03) | DRG 563 ==
LOC: ED 23:58 → MS3 07-10 00:28
PROVIDERS: Internal Medicine; Admitting Provider Hospitalist; Emergency Provider Emergency Medicine; Visit Provider Internal Medicine
DX: S42.211A Unspecified displaced fracture of surgical neck of right humerus, initial encounter for closed fracture (principal); Z68.42 Body mass index [BMI] 45.0-49.9, adult; J98.11 Atelectasis; W01.0XXA Fall on same level from slipping, tripping and stumbling without subsequent striking against object, initial encounter; I10 Essential (primary) hypertension; E78.5 Hyperlipidemia, unspecified; J45.909 Unspecified asthma, uncomplicated; E11.65 Type 2 diabetes mellitus with hyperglycemia; Z66 Do not resuscitate; Z79.4 Long term (current) use of insulin; Z79.51 Long term (current) use of inhaled steroids; Z90.710 Acquired absence of both cervix and uterus; G40.909 Epilepsy, unspecified, not intractable, without status epilepticus; M21.00 Valgus deformity, not elsewhere classified, unspecified site; E66.01 Morbid (severe) obesity due to excess calories; E87.6 Hypokalemia; K21.9 Gastro-esophageal reflux disease without esophagitis; F32.9 Major depressive disorder, single episode, unspecified; I45.9 Conduction disorder, unspecified
CPT/HCPCS: 36415; 73060; 73200; 80048; 80053; 82306; 82962; 83735; 85025; 87426; 93005; 93306; 94640; 97110; 97162; 97166; 97530; 97535; 99285; J7040; Q9957; 90686; A4216; C8929; J2405

== ENCOUNTER 2020-07-19 01:29 | Emergency (ER) | payer OTHER, SELFPAY ==
[2020-07-10 01:49] VITALS: BMI 43.1
[2020-07-19 01:29] VITALS: BP 157/82; PULSE 83; RESP 16; TEMP 36.8; O2SAT 97; BMI 47.2
--- NOTE | 2020-07-19 01:43 | CT_ITS ---
STUDY: CT ABDOMEN AND PELVIS WITH CONTRAST REASON FOR EXAM: Female, 70 years old. Right upper quadrant pain RADIATION DOSAGE (If Supplied By Facility): CTDIvol = ( 18.74 ) mGy, DLP = ( 1406.64 ) mGycm TECHNIQUE: Transaxial images were obtained from the dome of the diaphragm to the symphysis pubis without oral contrast. IV 100mL Isovue-300 was administered. Sagittal and coronal images were reconstructed. Individualized dose optimization techniques were used for this CT. COMPARISON: None. FINDINGS: Mild dependent atelectasis versus scar formation at the lung bases. The visualized portions of the heart are within normal limits. Mitral annular and aortic root calcifications are noted. Normal liver. Gallbladder is surgically absent. No biliary duct dilatation. Normal spleen. Normal pancreas. Normal bilateral adrenal glands. Normal right kidney. Hypoattenuated lesions within the left kidney measuring near water density. Normal bilateral ureters. Normal visualized stomach. Normal small intestine. Normal colon. The appendix is visualized and appears normal. Mild atherosclerotic plaque of the abdominal vasculature. Normal inferior vena cava. Normal retroperitoneum. Normal urinary bladder. Uterus is surgically absent. Normal abdominal wall. Mild multilevel degenerative change of the spine. CT/Abdomen/Pelvis W IV Cont ONLY IMPRESSION: 1. No acute intra-abdominal abnormality. 2. Simple appearing left renal cysts. Electronically Signed: Hammad Thrasher MD at 3:27 EST Tel , Service support ,
--- NOTE | 2020-07-19 01:44 | ED.VIS.GEN ---
History of Present Illness Chief Complaint: Abd Pain Informant: Patient Narrative: 70-year-old female with past medical history of hypertension, diabetes, hyperlipidemia presents with concern for right upper quadrant pain. States that it is aching in nature. States is been present over the past 48 hours. Intermittent. No relieving or worsening factors. Had 3 episodes of emesis which were nonbloody and nonbilious this evening. Patient states the pain was worsening so she wanted to be evaluated in the emergency department. Denies any fever, chills, cough, urinary symptoms, vaginal bleeding or discharge. Past Medical History - Allergies and Home Meds Allergies/Adverse Reactions: Allergies ciprofloxacin Allergy (Verified 07/19/20 01:36) Unknown hydrochlorothiazide Allergy (Verified 07/19/20 01:36) Unknown pentazocine [From [place]] Allergy (Verified 07/19/20 01:36) Unknown Primary Care Physician: [place] [STAFF PHYSICIAN] - Prior records reviewed: Yes Past Medical History: - - HTN, diabetes, hyperlipidemia, morbid obesity Surgical History: cholecystectomy, hysterectomy, - - 2 c-sections Lives: [facility] Smoking Status: Never smoker - Family History Paternal Family History: Reports: Cancer Maternal Family History: Reports: Cancer Review of Systems General: Denies: Chills, Fever, Sweats Eyes: Denies: Visual changes - bilaterally, Diplopia ENT: Denies: Rhinorrhea, Sore throat Cardiovascular: Denies: Chest pain, Palpitations Respiratory: Denies: Dyspnea, Cough, Dyspnea on exertion Gastrointestinal: Reports: Abdominal pain, Nausea, Vomiting. Denies: Diarrhea, Melena, Hematochezia Genitourinary: Denies: Dysuria, Hematuria, Frequency Musculoskeletal: Denies: Back pain, Extremity Pain Skin: Denies: Rash, Wounds Neurological: Denies: Headache, Weakness, Numbness Physical Exam Vital Signs/Narrative: Vital Signs Temp Pulse Resp BP Pulse Ox 07/19/20 01:29 98.2 F 83 16 157/82 H 97 Inital Vital Signs reviewed: Yes General: Well nourished, Well developed, No Acute Distress Head: Normocephalic, Atraumatic Eyes: Perrl, EOMI ENT: Moist mucous membranes, No rhinorrhea Neck: Supple, Nontender Cardiovascular: Regular rate, Regular rhythm, No murmurs Respiratory: No distress, CTA bilaterally, Chest nontender Abdomen: Soft, Nondistended, Normal bowel sounds, - - Tenderness to palpation in the right mid upper quadrant without rebound or guarding. No rigidity. Back: Nontender, Normal Inspection Extremities: Nontender, No edema Skin: Normal color, No rash Neurological: Alert, Oriented x3, Cranial nerves II-XII grossly intact, Normal Strength, Normal Sensation Psychological: Normal affect, Normal Mood Diagnostic/Tx/Re-eval Clinical Impression(s) from Imaging Studies Abdomen/Pelvis CT 07/19/20 01:43 IMPRESSION: 1. No acute intra-abdominal abnormality. 2. Simple appearing left renal cysts. Electronically Signed: Hammad Thrasher MD at 3:27 EST Tel , Service support , Laboratory Data 07/19/20 07/19/20 07/19/20 01:55 01:55 02:25 WBC 9.6 RBC 4.07 L Hgb 11.9 L Hct 35.5 L MCV 87.2 MCH 29.2 MCHC 33.5 RDW Std Deviation 39.7 RDW Coeff of Linda 12.4 Plt Count 522 H MPV 10.2 Immature Gran % (Auto) 0.400 Neut % (Auto) 54.0 Lymph % (Auto) 31.2 [place] % (Auto) 7.7 Eos % (Auto) 5.2 H Baso % (Auto) 1.5 H Absolute Neuts (auto) 5.2 Absolute Lymphs (auto) 3.00 Nucleated RBC % 0 Sodium 139 Potassium 3.6 Chloride 106 Carbon Dioxide 27.0 Anion Gap 6 BUN 16 Creatinine 0.65 Estim Creat Clear Calc 45.20 Est GFR (MDRD) Af Amer 117 Est GFR (MDRD) Non-Af 96 BUN/Creatinine Ratio 24.8 H Glucose 74 Calcium 9.1 Total Bilirubin 0.40 AST 7 L ALT 9 L Alkaline Phosphatase 144 H Total Protein 6.5 Albumin 2.4 L Globulin 4.1 Albumin/Globulin Ratio 0.6 L Lipase 54 L Urine Color Yellow Urine Clarity Clear Urine pH 6.0 Ur Specific [place] 1.010 Urine Protein 100 H Urine Glucose (UA) Normal Urine Ketones Negative Urine Occult Blood 25 H Urine Nitrite Negative Urine Bilirubin Negative Urine Urobilinogen Normal Ur Leukocyte Esterase Negative Urine RBC 0-5 SEEN Urine WBC 0 SEEN Ur Squamous Epith Cells 0 SEEN Urine Bacteria RARE Urine Mucus 0 SEEN - Medical Decision Making Appears well nontoxic. Vital signs within normal limits. Lab work shows no acute abnormalities. Urine no evidence of infection. Patient was given Toradol. CT A/P with IV negative. Spoke with patient who does not wish to return to the senior living and will have her son pick her up to take her to her apartment. Patient was at the nursing facility following a fall and injury to her arm. Patient discharged in stable condition. Impression: 1. Abdominal pain 2. Nausea ED Disposition - Plan for ED Patient: Disposition: Home or Assisted Living Instructions: ED Abdominal Pain Unkn Cause Fem Referrals: [facility] [STAFF PHYSICIAN] - 1 Day
[2020-07-19] MEDS: Ondansetron 4 MG/2 ML Vial IV (01:58)
[2020-07-19 02:02] LABS: Absolute Neutrophil Count 5.2 X10^3/uL (2.0-7.7); Basophil# 0.14 X10^3/uL; Basophil% 1.5 % (0-1); Eosinophils% 5.2 % (0-5); Hematocrit 35.5 % (37-47); Hemoglobin 11.9 g/dL (12.0-15.0); Lymphocyte % 31.2 % (19-41); Mean Corp Hgb Conc 33.5 g/dL (32-36); Mean Corpuscular Hgb 29.2 pg (27.0-32.0); Mean Corpuscular Volume 87.2 fL (81-99); Mean Platelet Vol. 10.2 fl (6.2-12.0); Monocyte# 0.74 X10^3/uL; Monocyte% 7.7 % (0-10); NRBC Flagged by Analyzer 0 % (0-5); Platelet Count 522 K/mm3 (150-450); RBC Distribution Width CV 12.4 % (11.6-14.6); RBC Distribution Width SD 39.7 fl (35.1-43.9); Red Blood Count 4.07 M/mm3 (4.2-5.4); White Blood Count 9.6 K/mm3 (4.4-11.0)
[2020-07-19 02:18] LABS: ALB/GLOB Ratio 0.6 RATIO (0.9-2.4); AST(SGOT) 7 U/L (15-37); Alanine Aminotransfer ALT/SGPT 9 U/L (13-56); Albumin, Serum 2.4 g/dL (3.2-5.0); Alkaline Phosphatase 144 U/L (45-117); Anion Gap 6 (5-15); BUN 16 mg/dL (7-18); BUN/Creat Ratio 24.8 RATIO (10-20); Calcium,Total 9.1 mg/dL (8.5-10.1); Chloride 106 mmol/L (98-107); Creatinine, Serum 0.65 mg/dL (0.55-1.02); EST Glomerular Filtration Rate 96 mL/min (>60); Est Glom Filt Rate - Afr Amer 117 mL/min (>60); Globulin 4.1 g/dL (2.2-4.2); Glucose 74 mg/dL (74-106); Lipase 54 U/L (73-393); Potassium 3.6 mmol/L (3.5-5.1); Protein, Total 6.5 g/dL (6.4-8.2); Sodium Level 139 mmol/L (136-145)
[2020-07-19 02:31] LABS: Mucous, Urine 0 SEEN /hpf (<or=2+); Squamous Epithelial Cells - UA 0 SEEN /hpf (5-10); White Blood Cells 0 SEEN /hpf (0-5)
[2020-07-19 02:32] LABS: Color, Urine Yellow (Yellow); Glucose, Dipstick Normal (Normal); Ketone-Dipstick Negative (Negative); Leukocyte Esterase-Dipstick Negative /ul (Negative); Nitrite-Dipstick Negative (Negative); Occult Blood-Urine 25 /ul (Negative); Protein-Dipstick 100 mg/dl (Negative); Urine Bilirubin Dipstick Negative (Negative); Urine Clarity Clear (Clear); Urine Urobilinogen Normal (Normal)
[2020-07-19 02:38] LABS: Bacteria RARE /hpf (None Seen); Red Blood Cells-Urine 0-5 SEEN /hpf (0-5)
[2020-07-19 03:48] VITALS: BP 161/70; PULSE 81; RESP 18; O2SAT 98
[2020-07-19] MEDS: Ketorolac 15 MG/ML Vial IV (03:50)
[2020-07-19 07:19] VITALS: BP 190/84; PULSE 85; RESP 16; O2SAT 98; O2SAT 99
== END 2020-07-19 07:38 | disposition home or self-care (01) ==
PROVIDERS: Emergency Provider Emergency Medicine; PCP Family Medicine
DX: R10.9 Unspecified abdominal pain (principal); R11.0 Nausea; E11.9 Type 2 diabetes mellitus without complications; E66.01 Morbid (severe) obesity due to excess calories; E78.5 Hyperlipidemia, unspecified; I10 Essential (primary) hypertension; N28.1 Cyst of kidney, acquired; Z90.49 Acquired absence of other specified parts of digestive tract; Z90.710 Acquired absence of both cervix and uterus
CPT/HCPCS: 74177; 80053; 81001; 83690; 85025; 99285; Q9967; A4216; J2405

== ENCOUNTER 2020-07-22 15:16 | Inpatient (IN) | payer OTHER, SELFPAY ==
[2020-07-22 15:18] VITALS: BP 159/76; PULSE 89; RESP 18; TEMP 36.8; O2SAT 97; BMI 44.3
--- NOTE | 2020-07-22 15:41 | ED.VIS.GEN ---
History of Present Illness Informant: Patient Onset: Today Narrative: 70-year-old female presents with acute on chronic right shoulder pain after a mechanical fall. She was here on 07/09/2020 after a fall and had comminuted fracture of the right humeral head and neck. She is in a sling and will have surgery in the future with Dr. Richard. Today she was sitting in her recliner when it tipped back all the way. She was still in the chair and did not fall out. No head injury or LOC. Takes aspirin, no blood thinners. She crawled to get to the phone and her daughter helped her up within 20 minutes. She briefly felt dizzy and fell again onto her right arm. Again no head injury. She now has increased pain in her right shoulder. She is able to ambulate. Denies headache, neck pain, vision changes, chest pain, abdominal pain, numbness or tingling, or lower extremity pain. <Mayte Iraheta - Last Filed: 07/22/20 17:48> <Karen Ascencio - Last Filed: 07/22/20 19:11> Chief Complaint: Fall Past Medical History Past Medical History: - - Hypertension, hyperlipidemia, type 2 diabetes Surgical History: cholecystectomy, hysterectomy, - - 2 c-sections Smoking Status: Never smoker - Family History Paternal Family History: Reports: Cancer Maternal Family History: Reports: Cancer <Mayte Iraheta - Last Filed: 07/22/20 17:48> <Karen Ascencio - Last Filed: 07/22/20 19:11> - Allergies and Home Meds Allergies/Adverse Reactions: Allergies ciprofloxacin Allergy (Verified 07/22/20 15:23) Unknown hydrochlorothiazide Allergy (Verified 07/22/20 15:23) Unknown pentazocine [From Talwin] Allergy (Verified 07/22/20 15:23) Unknown Primary Care Physician: Yovanny Ruano MD [Primary Care Provider] - Angel Richard MD [STAFF PHYSICIAN] - Review of Systems General: Denies: Chills, Fever, Sweats Eyes: Denies: Visual changes - bilaterally, Diplopia ENT: Denies: Rhinorrhea, Sore throat Cardiovascular: Denies: Chest pain, Palpitations Respiratory: Denies: Dyspnea, Cough, Dyspnea on exertion Gastrointestinal: Denies: Abdominal pain, Nausea, Vomiting, Diarrhea, Melena, Hematochezia Genitourinary: Denies: Dysuria, Hematuria, Frequency Musculoskeletal: Reports: Extremity Pain. Denies: Back pain, Swelling Skin: Denies: Rash, Wounds Neurological: Denies: Headache, Weakness, Parasthesia, Numbness <Mayte Iraheta - Last Filed: 07/22/20 17:48> Physical Exam Vital Signs/Narrative: Vital Signs Temp Pulse Resp BP Pulse Ox 07/22/20 15:18 98.3 F 89 18 159/76 H 97 General: Well nourished, Well developed, No Acute Distress Head: Normocephalic, Atraumatic, - - No raccoon eyes, no jolly sign, no hemotympanum, no septal hematoma, no CSF otorrhea or rhinorrhea Eyes: Perrl, EOMI ENT: Moist mucous membranes, No rhinorrhea Neck: Supple, Nontender, - - No midline spinal tenderness, no step-off or crepitus Cardiovascular: Regular rate, Regular rhythm, No murmurs Respiratory: No distress, CTA bilaterally, - - Tender to palpation over right anterior upper ribs, no deformity or crepitus. Clear lung sounds throughout Abdomen: Soft, Nontender, Nondistended, Normal bowel sounds Back: Nontender, Normal Inspection, - - No midline spinal tenderness, no step-off or crepitus Extremities: Nontender, No edema Skin: Normal color, No rash Neurological: Alert, Oriented x3, Cranial nerves II-XII grossly intact, Normal Sensation, - - Old ecchymosis over right upper arm. Tender to palpation diffusely over the shoulder. No tenderness over the elbow, arm, or wrist. Mild tenderness to palpation across right first and second metacarpals. FROM of elbow, wrist, and hand. 2+ radial pulse. Sensation intact in median, ulnar, and r Psychological: Normal affect, Normal Mood <Mayte Iraheta - Last Filed: 07/22/20 17:48> Vital Signs/Narrative: Vital Signs Temp Pulse Resp BP Pulse Ox 07/22/20 17:17 91 18 153/58 H 97 07/22/20 15:18 98.3 F 89 18 159/76 H 97 <Karen Ascencio - Last Filed: 07/22/20 19:11> Diagnostic/Tx/Re-eval Clinical Impression(s) from Imaging Studies Hand X-Ray 07/22/20 15:53 IMPRESSION: No acute fracture or dislocation. Electronically Signed: Deep Echols MD at 16:29 EST Tel , Service support , Ribs w/Chest X-Ray 07/22/20 15:53 IMPRESSION: RIBS: Acute or chronic fracture the anterolateral right seventh rib. CHEST: Normal x-ray examination of the chest. Electronically Signed: Deep Echols MD at 16:33 EST Tel , Service support , Shoulder X-Ray 07/22/20 15:53 IMPRESSION: No change in the anteriorly displaced fracture the humeral neck. Electronically Signed: Deep Echols MD at 16:32 EST Tel , Service support , - Medical Decision Making Patient presents with acute on chronic right shoulder pain after mechanical falls. She appears well nontoxic. Vital signs within normal limits. He has diffuse tenderness to palpation over the right shoulder and has a known right humeral neck fracture. She was also tender over the right anterior ribs and right hand. Neurovascularly intact. X-rays show no change in the humeral neck fracture, negative hand, and questionable acute or chronic right seventh rib fracture. Patient was going to be discharged home when she states her daughter can no longer take care of her in case she cannot do her ADLs by herself. Her daughters do not live with her but has been stopping by. She states [facility] but nothing is set up. Basic labs will be obtained prior to admission for placement. <Mayte Iraheta - Last Filed: 07/22/20 17:48> Laboratory Last Values WBC 10.6 K/mm3 (4.4-11.0) 07/22/20 17:29 RBC 3.97 M/mm3 (4.2-5.4) L 07/22/20 17:29 Hgb 12.2 g/dL (12.0-15.0) 07/22/20 17: Hct 34.7 % (37-47) L 07/22/20 17: MCV 87.4 fL (81-99) 07/22/20 17: MCH 30.7 pg (27.0-32.0) 07/22/20 17: MCHC 35.2 g/dL (32-36) D 07/22/20 17: RDW Std Deviation 39.8 fl (35.1-43.9) 07/22/20 17: RDW Coeff of Linda 12.4 % (11.6-14.6) 07/22/20: Plt Count 545 K/mm3 (150-450) H 07/22/20 17: MPV 10.8 fl (6.2-12.0) 07/22/20 17: Immature Gran % (Auto) 0.500 % (0.0-0.9) 07/22/20 17: Neut % (Auto) 64.8 % (47-70) 07/22/20 17: Lymph % (Auto) 23.5 % (19-41) 07/22/20 17: [place] % (Auto) 6.3 % (0-10) 07/22/20 17: Eos % (Auto) 3.7 % (0-5) 07/22/20 17: Baso % (Auto) 1.2 % (0-1) H 07/22/20 17: Absolute Neuts (auto) 6.9 X10^3/uL (2.0-7.7) 07/22/20 17: Absolute Lymphs (auto) 2.50 X10^3/uL (0.83-4.51) 07/22/20 17: Nucleated RBC % 0 % (0-5) 07/22/20 17:29 Sodium 136 mmol/L (136-145) 07/22/20 17:29 Potassium 4.7 mmol/L (3.5-5.1) 07/22/20 17: Chloride 107 mmol/L (98-107) 07/22/20 17: Carbon Dioxide 26.0 mmol/L (21.0-32.0) 07/22/20 17:29 Anion Gap 3 (5-15) L 07/22/20 17:29 BUN 11 mg/dL (7-18) 07/22/20 17:29 Creatinine 0.88 mg/dL (0.55-1.02) 07/22/20 17:29 Estim Creat Clear Calc 53.53 ml/min 07/22/20 17:29 Est GFR (MDRD) Af Amer 81 mL/min (>60) 07/22/20 17:29 Est GFR (MDRD) Non-Af 67 mL/min (>60) 07/22/20 17:29 BUN/Creatinine Ratio 12.4 RATIO (10-20) 07/22/20 17:29 Glucose 359 mg/dL (74-106) H 07/22/20 17:29 Calcium 8.5 mg/dL (8.5-10.1) 07/22/20 17:29 - Medical Decision Making Patient was seen in conjunction with physicians patient observation assistant. Patient was independently evaluated and examined. Patient presents after fall at home today. She leaned back in her recliner and fell. She is currently awaiting surgery for a proximal humerus fracture. Patient reportedly has been home from the group home for the past 4 days and family states she is fallen twice and they are not able to keep her safe at home. Patient states she has not yet made an appointment to see her orthopedic surgeon to schedule her surgery. Patient sitting upright in bed no acute distress. Head and neck examination unremarkable. Heart regular rate and rhythm. Lung sounds are clear. Abdomen is soft and nontender. Right upper extremity reveals ecchymosis over the proximal humerus. Strong distal pulses. Decreased range of motion secondary to pain. X-ray results are reviewed. No change in clinical management at this time. Social work did speak with family as well as their first 2 choices of nursing homes. Neither have beds available. [facility] as patient [facility]. They checked their bed status, but then called back and stated that the patient only needed observation she she could stay here at [place] [facility] rather than transfer. At this point she will need admitted for placement. She was also advised she needs to contact orthopedics as soon as possible to schedule her surgery. Disposition: Admission Pression: 1. Proximal humerus fracture 2. Unable to care for self <Karen Ascencio - Last Filed: 12/11/20 19:11> ED Disposition <Mayte Iraheta - Last Filed: 07/22/20 17:48> <Karen Ascencio - Last Filed: 07/22/20 19:11> - Plan for ED Patient: Disposition: Acute Care Hospital [facility] Diagnosis: Comminuted right humeral fracture, Recurrent falls, Contusion, chest wall, Contusion of right hand Referrals: Yovanny Ruano MD [Primary Care Provider] - Angel Richard MD [STAFF PHYSICIAN] -
--- NOTE | 2020-07-22 15:53 | RAD_ITS ---
STUDY: X-RAY - RIGHT HAND REASON FOR EXAM: Female, 70 years old. FALL OUT OF RECLINER TODAY. PAIN RT HAND TECHNIQUE: 3 view(s) of the hand. COMPARISON: None. FINDINGS: Normal radiocarpal articulation. Normal distal radioulnar joint. Normal visualized carpal bones. Normal carpal articulations Normal carpometacarpal articulation of the thumb. Normal second through fifth carpometacarpal joints. Normal metacarpi. Normal metacarpophalangeal joint of the thumb. Normal interphalangeal joint of the thumb. Normal proximal and distal phalanges of the thumb. Normal metacarpophalangeal joints of the second through fifth fingers. There is diffuse articular joint space narrowing of the proximal and distal interphalangeal joints of the second through fifth fingers, but without erosive changes or periarticular soft tissue swelling. Normal phalanges of the second through fifth fingers. The soft tissue structures are unremarkable. RAD/Hand Min 3 Views IMPRESSION: No acute fracture or dislocation. Electronically Signed: Deep Echols MD at 16:29 EST Tel , Service support ,
--- NOTE | 2020-07-22 15:53 | RAD_ITS ---
STUDY: X-RAY - UNILATERAL RIBS ( RIGHT ) WITH CHEST REASON FOR EXAM: Female, 70 years old. FALL OUT OF RECLINER TODAY. ANTERIOR RIB PAIN. -- -- PATIENT UNABLE TO STAND OR LAY PA FOR IMAGES TECHNIQUE - RIBS: 4 view(s) of the ribs. TECHNIQUE - CHEST: Single PA view of the chest. COMPARISON: 10/25/2014 FINDINGS - RIBS: There is a fracture the anterolateral right seventh rib which may be acute or chronic. FINDINGS - CHEST: The lungs are clear and expanded. There is no demonstrated pleural abnormality. Normal size heart. Normal mediastinum and jane. Normal visualized pulmonary arteries. Normal visualized aortic arch and descending thoracic aorta. Normal visualized thoracic spine. Normal visualized ribs, clavicles, and shoulders. There is no demonstrated abnormality of the visualized soft tissue structures of the upper abdomen. RAD/Ribs Uni Min 3V w/PA Chest IMPRESSION: RIBS: Acute or chronic fracture the anterolateral right seventh rib. CHEST: Normal x-ray examination of the chest. Electronically Signed: Deep Echols MD at 16:33 EST Tel , Service support ,
--- NOTE | 2020-07-22 15:53 | RAD_ITS ---
STUDY: X-RAY - RIGHT SHOULDER REASON FOR EXAM: Female, 70 years old. PREVIOUS SHOULDER FX 2 WEEKS AGO. FALL OUT OF RECLINER TODAY. RT SHOULDER PAIN TECHNIQUE: 2 view(s) of the shoulder. COMPARISON: 07/09/2020 FINDINGS: Normal glenohumeral articulation. Normal acromioclavicular joint. Normal acromion. No change in the anteriorly displaced fracture of the humeral neck. The soft tissue structures are unremarkable. Normal visualized pulmonary apex. RAD/Shoulder min 2 Views IMPRESSION: No change in the anteriorly displaced fracture the humeral neck. Electronically Signed: Deep Echols MD at 16:32 EST Tel , Service support ,
[2020-07-22 17:17] VITALS: BP 153/58; PULSE 91; RESP 18; O2SAT 97
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
[2020-07-22 17:53] LABS: Absolute Neutrophil Count 6.9 X10^3/uL (2.0-7.7); Basophil# 0.13 X10^3/uL; Basophil% 1.2 % (0-1); Eosinophil# 0.39 X10^3/uL; Eosinophils% 3.7 % (0-5); Hematocrit 34.7 % (37-47); Hemoglobin 12.2 g/dL (12.0-15.0); Lymphocyte % 23.5 % (19-41); Mean Corp Hgb Conc 35.2 g/dL (32-36); Mean Corpuscular Hgb 30.7 pg (27.0-32.0); Mean Corpuscular Volume 87.4 fL (81-99); Mean Platelet Vol. 10.8 fl (6.2-12.0); Monocyte# 0.67 X10^3/uL; Monocyte% 6.3 % (0-10); NRBC Flagged by Analyzer 0 % (0-5); Neutrophil # 6.88 X10^3/uL (2.7-7.7); Neutrophil % 64.8 % (47-70); Platelet Count 545 K/mm3 (150-450); RBC Distribution Width CV 12.4 % (11.6-14.6); RBC Distribution Width SD 39.8 fl (35.1-43.9); Red Blood Count 3.97 M/mm3 (4.2-5.4); White Blood Count 10.6 K/mm3 (4.4-11.0)
--- NOTE | 2020-07-22 17:56 | NURSING ---
[facility], CALLED. HE WILL START AN INTAKE AND A CARE PLAN PERSON WILL CALL US BACK. WITH ADMIT HERE OR THERE.
[2020-07-22 18:10] LABS: Anion Gap 3 (5-15); BUN 11 mg/dL (7-18); BUN/Creat Ratio 12.4 RATIO (10-20); Calcium,Total 8.5 mg/dL (8.5-10.1); Chloride 107 mmol/L (98-107); Creatinine, Serum 0.88 mg/dL (0.55-1.02); EST Glomerular Filtration Rate 67 mL/min (>60); Est Glom Filt Rate - Afr Amer 81 mL/min (>60); Estimated Creatinine Clearance 53.53 ml/min; Glucose 359 mg/dL (74-106); Potassium 4.7 mmol/L (3.5-5.1); Sodium Level 136 mmol/L (136-145)
[2020-07-22 19:59] VITALS: BP 161/70; PULSE 76; RESP 18; TEMP 36.7; O2SAT 97
--- NOTE | 2020-07-22 20:28 | PCS.PANDOC ---
PANDEMIC DOCUMENTATION INITIATED: Date: 07/22/2020 Time: 2024
[2020-07-22 20:29] VITALS: BMI 44.8
[2020-07-22 20:33] VITALS: BMI 44.8
[2020-07-22 20:47] VITALS: BP 187/84; PULSE 81; RESP 16; TEMP 36.8; O2SAT 98
[2020-07-22] MEDS: Acetaminophen 325 MG Tablet 650 MG PO (21:01)
--- NOTE | 2020-07-22 21:29 | HP.PCM_ITS ---
Problem List (1) Debility Status: Acute (2) Hypertension Status: Chronic (3) Diabetes mellitus type 2 in obese Status: Chronic (4) Dyslipidemia Status: Chronic (5) Chronic stable Asthma Status: Chronic (6) Shoulder fracture, right Status: Acute (7) Comminuted right humeral fracture Status: Acute (8) Recurrent falls Status: Acute History of Present Illness Date of Admission: 07/22/20 Chief Complaint: FALLS The patient is a 70 year old F with a significant history of chronic pain and diabetes mellitus who presented to the emergency department with a fall. Patient fell and landed on her right right shoulder where she has a proximal humerus fracture and shoulder fracture. She reports excruciating pain at her right shoulder and the right. The pain is aching. The pain is nonradiating. The pain worsens with moving and it improves with rest. She reported she was sitting in her chair and she fell backwards. Of note patient was admitted at our hospital ([facility]) on 07/10/2020 and discharged on 07/15/2020 for above fracture after a fall.. She was discharged to a usp and she eventually went home. Family is unable to take care of patient at home. Past Medical History Past Medical History (Chronic Problems): Chronic Problems (Last Reviewed 07/22/20 @ 21:[address] Ranjeet Richardson MD) Hypertension (Chronic) Diabetes mellitus type 2 in obese (Chronic) Dyslipidemia (Chronic) Chronic stable Asthma (Chronic) Medical History: Medical History (Last Reviewed 07/22/20 @ 21:[address] Ranjeet Richardson MD) Diabetes mellitus E11.9 Diabetes mellitus E11.9 Allergies ciprofloxacin Allergy (Verified 07/22/20 15:23) Unknown hydrochlorothiazide Allergy (Verified 07/22/20 15:23) Unknown pentazocine [From Talwin] Allergy (Verified 07/22/20 15:23) Unknown Home Medications: Ambulatory Orders Medication Instructions Recorded Omeprazole [Prilosec] 20 mg PO BID 12/19/13 Simvastatin [Zocor] 40 mg PO QHS 12/19/13 Topiramate [Topamax] 50 mg PO BID 12/19/13 Albuterol Aerosols [Ventolin 2.5 mg INHALATION Q4H PRN PRN 05/09/14 Aerosols] Glucosam/Kiran-Msm1/C/Cricket/Bosw 1 each PO BID 05/09/14 [Osteo Bi-Flex Caplet] Insulin NPH Human [Humulin N Pen] 60 units SC DAILY@0730 05/09/14 Insulin Regular, Human [Novolin R] 20 unit SC BIDAC 05/09/14 Aspirin [Aspirin, Baby] 81 mg PO DAILY@0800 08/26/18 Budesonide/Formoterol 160/4.5 1 puff INHALATION BID PRN PRN 08/26/18 [Symbicort 160/4.5 Mcg Inhaler (SP)] Paroxetine HCl 30 mg PO DAILY 08/26/18 Amlodipine [Norvasc] 10 mg PO DAILY #0 08/28/18 Tizanidine HCl [Zanaflex] 2 mg PO Q8H PRN PRN #20 tab 08/28/18 Insulin NPH Human [Humulin N Pen] 40 units SC QHS 07/10/20 cycloBENZAPRine HCl 5 mg PO TID PRN PRN tab 07/15/20 [Cyclobenzaprine HCl] Cetirizine HCl [Zyrtec] 10 mg PO DAILY 07/22/20 Cholecalciferol (Vitamin D3) 1,000 unit PO DAILY 07/22/20 [Vitamin D3] Lamotrigine [Lamictal] 300 mg PO BID 07/22/20 Phenobarbital 30 mg PO DAILY 07/22/20 Phenobarbital 60 mg PO DAILY 07/22/20 Surgical History: cholecystectomy, hysterectomy, - - 2 c-sections Smoking Status: Never smoker - *Family History Paternal History Items: Cancer Maternal History Items: Cancer Review of Systems Constitutional: Denies: Chills, Fever, Weight Change HEENT: Denies: Head Aches, Sinus Congestion, Sinus Drainage Cardiovascular: Denies: Chest Pain, Palpitations Respiratory: Denies: Cough, Shortness of breath at rest, Sputum production Gastrointestinal: Denies: Abdominal Pain, Nausea, Vomiting Genitourinary: Denies: Dysuria Musculoskeletal: Reports: Joint Pain - Right shoulder, Joint Tenderness - Right shoulder, Shoulder Pain - Right shoulder Skin: Denies: Rash, Wounds Neurological: Denies: Numbness, Tingling, Focal weakness Psychiatric: Denies: Anxiety, Depression, Homicidal Ideations, Suicidal Ideation s Hematologic/ Lymphatic: Denies: Easy Bruising, Easy Bleeding VTE Information - Inpt Only VTE Present on Admission: No VTE Mechan Device Prophylaxis: None VTE Pharm Prophylaxis ordered?: Yes Patient Problems: Active and Suspected Problems (Last Reviewed 07/22/20 @ 21:[address] Ranjeet Richardson MD) Shoulder fracture, right (Acute) Comminuted right humeral fracture (Acute) Recurrent falls (Acute) Debility (Acute) - Physical Exam Vitals/I&O's: Vital Signs Temp Pulse Resp BP Pulse Ox 98.3 F 81 16 187/84 H 98 07/22/20 20:47 07/22/20 20:47 07/22/20 20:47 07/22/20 20:47 07/22/20 20:47 Oxygen Delivery Method Room Air Weight: 118.4 kg Body Mass Index (BMI) 44.8 Finger Stick Blood Glucose 198 General: Alert, Oriented x3, Cooperative HEENT: Atraumatic, PERRLA, EOMI, Normocephalic Neck: Supple, No JVD, Negative Carotid Bruits Lungs: Clear to auscultation, Normal air movement Cardiovascular: Regular rate, No murmurs Abdomen: Bowel Sounds Present, Soft, Non Tender Extremities: No edema, Capillary Refill Less than 3 Seconds, - - Right shoulder in sling. Tender right shoulder and right. Skin: No rashes, No breakdown Musculoskeletal: Tenderness - Right shoulder Neurological: Cranial nerves II-XII grossly intact Psych/Mental Status: Normal Affect, Appropriate Laboratory Results 07/22/20 17:29: WBC 10.6, RBC 3.97 L, Hgb 12.2, Hct 34.7 L, MCV 87.4, MCH 30.7, MCHC 35.2 D, RDW Std Deviation 39.8, RDW Coeff of Linda 12.4, Plt Count 545 H, MPV 10.8, Immature Gran % (Auto) 0.500, Neut % (Auto) 64.8, Lymph % (Auto) 23.5, [place] % (Auto) 6.3, Eos % (Auto) 3.7, Baso % (Auto) 1.2 H, Absolute Neuts (auto) 6.9, Absolute Lymphs (auto) 2.50, Nucleated RBC % 0 07/22/20 17:29: Sodium 136, Potassium 4.7, Chloride 107, Carbon Dioxide 26.0, Anion Gap 3 L, BUN 11, Creatinine 0.88, Estim Creat Clear Calc 53.53, Est GFR (MDRD) Af Amer 81, Est GFR (MDRD) Non-Af 67, BUN/Creatinine Ratio 12.4, Glucose 359 H, Calcium 8.5 Current Medications Acetaminophen (Acetaminophen 325 Mg Tablet) 650 mg PO Q6H PRN PRN PRN Reason: Pain Score 1-10/Temp > 100.7 F Last Admin: 07/22/20 21:01 Dose: 650 mg Documented by: Albuterol Sulfate (Albuterol 2.5 Mg/3 Ml Vial.Neb.) 2.5 mg INHALATION Q2H PRN PRN PRN Reason: SOB/Wheezing Albuterol Sulfate (Albuterol 2.5 Mg/3 Ml Vial.Neb.) 2.5 mg INHALATION Q6HWA.RT [facility] Amlodipine Besylate (Amlodipine 10 Mg Tablet) 10 mg PO DAILY [facility] Aspirin (Aspirin 81 Mg Tab.Chew) 81 mg PO DAILY@0800 [facility] Atorvastatin Calcium (Atorvastatin Calcium 20 Mg Tablet) 20 mg PO QHS [facility] Budesonide (Budesonide Respules 0.5 Mg/2 Ml Ampul.Neb.) 0.5 mg INHALATION Q12H.RT [facility] Cholecalciferol (Cholecalciferol (Vit D3) 1,000 Unit (25mcg)) 1,000 unit PO DAILY [facility] Cyclobenzaprine HCl (Cyclobenzaprine Hcl 5 Mg Tablet) 5 mg PO TID PRN PRN PRN Reason: pain/muscle spasms Dextrose (Dextrose 50%-Water 25 Gm/50 Ml Disp.Syrin) 0 gm IV X1 PRN; Protocol PRN Reason: Hypoglycemia Enoxaparin Sodium (Enoxaparin 40 Mg/0.4 Ml Syringe) 40 mg SC BID [facility] Glucagon (Glucagon 1 Mg/Ml Syringe) 1 mg IM .X1 PRN PRN Reason: Hypoglycemia Insulin Human Lispro (Insulin Lispro 100 Unit/Ml Insuln.Pen) 15 unit SC TIDCM [facility] Insulin Human Lispro (Insulin Lispro 100 Unit/Ml Insuln.Pen) 0 unit SC ACHS [facility]; Protocol Insulin Human NPH (Insulin Nph Human 100 Units/Ml Pen) 60 units SC DAILY@0730 [facility] Insulin Human NPH (Insulin Nph Human 100 Units/Ml Pen) 40 units SC QHS [facility] Loratadine (Loratadine 10 Mg Tablet) 10 mg PO DAILY [facility] Non-Formulary Medication (Lamotrigine [Lamotrigine Er]) 300 mg PO 4X/DAY [facility] Ondansetron HCl (Ondansetron 4 Mg/2 Ml Vial) 4 mg IV Q8H PRN PRN PRN Reason: NAUSEA/VOMITING Oxycodone HCl (Oxycodone 5 Mg Tablet) 5 mg PO Q4H PRN PRN PRN Reason: Pain Score 6-10/10 Pantoprazole Sodium (Pantoprazole Sodium 20 Mg Tablet) 20 mg PO BID [facility] Paroxetine HCl (Paroxetine 10 Mg Tablet) 30 mg PO DAILY [facility] Phenobarbital (Phenobarbital 32.4 Mg Tablet) 32.4 mg PO DAILY [facility] Phenobarbital (Phenobarbital 32.4 Mg Tablet) 64.8 mg PO QPM [facility] Senna/Docusate Sodium (Senna/Docusate Sodium 1 Tablet) 2 tablet PO BID PRN PRN PRN Reason: Constipation Sodium Chloride (0.9% Saline Lock 10 Ml Syringe) 10 - 40 ml IV UD PRN PRN Reason: SALINE FLUSH Tizanidine HCl (Tizanidine Hcl 2 Mg Tablet) 2 mg PO Q8H PRN PRN PRN Reason: muscle pain/spasm Topiramate (Topiramate 50 Mg Tablet) 50 mg PO BID [facility] Assessment/Plan All Active Problems (Last Reviewed 07/22/20 @ 21:[address] Ranjeet Richardson MD) Fall (Acute) Proximal humerus fracture (Acute) Shoulder fracture, right (Acute) Comminuted right humeral fracture (Acute) Recurrent falls (Acute) Debility (Acute) Debility secondary to proximal humerus fracture acute shoulder fracture/multiple falls/acute rib fracture. Shoulder x-ray showed no change in anterior displaced fracture of the humeral neck. Rib with chest x-ray showed acute or chronic fracture at anterior right seventh rib. Of note patient reports history of left rib fracture. Continue sling on right shoulder. Incentive spirometer ordered Oxycodone as needed ordered. Tylenol as needed ordered. Bowel protocol and antiemetics in place. PT and OT to work with patient Case management consult for placement. Hypertension Uncontrolled Amlodipine continued Hydralazine as needed ordered. Trend blood pressure and adjust blood pressure medications Diabetes mellitus with hyperglycemia. Patient noted to have severely elevated blood glucose on presentation. Basal insulin continued. Prandial insulin adjusted. Accu-Chek q. residual correction scale insulin. Diabetic diet ordered. Chronic pain Flexeril as needed pain Zanaflex as needed continued. Depression/anxiety Paroxetine continued. Seizure disorder Phenobarbital continued Lamictal continued COPD/asthma Stable Breathing treatment continued. Claritin continued. GERD Omeprazole continued DVT prophylaxis Subcutaneous Lovenox. OBSV E&M: [id number] Initial observation care L2
[2020-07-22] MEDS: Phenobarbital 32.4 MG Tablet 64.8 MG PO (22:27)
[2020-07-22] MEDS: lamoTRIgine 150 MG Tablet 300 MG PO (22:27)
[2020-07-22] MEDS: Enoxaparin 40 MG/0.4 ML Syringe SC (22:27)
[2020-07-22] MEDS: Topiramate 50 MG Tablet PO (22:27)
[2020-07-22] MEDS: Pantoprazole Sodium 20 MG Tablet PO (22:27)
[2020-07-22] MEDS: Atorvastatin Calcium 20 MG Tablet PO (22:27)
[2020-07-22 22:35] LABS: Bedside Glucose 334 mg/dL (70-110)
[2020-07-22] MEDS: Insulin NPH Human 100 UNITS/ML PEN 40 UNITS SC (22:36)
[2020-07-22] MEDS: tiZANidine HCl 2 MG Tablet PO (22:36)
[2020-07-22] MEDS: Insulin Lispro 100 UNIT/ML INSULN.PEN SC (22:36)
[2020-07-23] VITALS (7 sets, daily range): BP systolic 117–152; BP diastolic 61–73; PULSE 70–80; RESP 15–18; TEMP 36.4–36.7; O2SAT 97–99
[2020-07-23] MEDS: Ondansetron 4 MG/2 ML Vial IV (00:56)
[2020-07-23] MEDS: 0.9% Saline Lock 10 ML Syringe IV ×2 (00:56→00:57)
[2020-07-23] MEDS: Senna/Docusate Sodium 1 Tablet 2 TABLET PO (06:03)
[2020-07-23] MEDS: Acetaminophen 325 MG Tablet 650 MG PO ×2 (06:03→15:41)
[2020-07-23] MEDS: Albuterol 2.5 MG/3 ML VIAL.NEB. INHALATION (07:03)
[2020-07-23] MEDS: Budesonide Respules 0.5 MG/2 ML AMPUL.NEB. INHALATION (07:05)
[2020-07-23] MEDS: Insulin Lispro 100 UNIT/ML INSULN.PEN SC ×2 (08:15→21:02)
[2020-07-23] MEDS: Insulin Lispro 100 UNIT/ML INSULN.PEN 15 UNIT SC ×2 (08:16→12:39)
[2020-07-23] MEDS: Insulin NPH Human 100 UNITS/ML PEN 60 UNITS SC (08:16)
[2020-07-23] MEDS: Aspirin 81 MG TAB.CHEW PO (08:18)
[2020-07-23] MEDS: oxyCODONE 5 MG Tablet PO ×3 (08:28→18:42)
[2020-07-23 08:36] LABS: Bedside Glucose 189 mg/dL (70-110)
--- NOTE | 2020-07-23 09:21 | CON.PCM_ITS ---
Reason for Consult Date of Consultation: 07/23/20 Reason for Consultation: Right proximal humerus fracture. Requested by Dr. Us History of Present Illness: The patient is a 70 year old F who presents today with a significant level of right shoulder pain. Patient had right proximal humerus fracture was set up to see me in the office however she is had multiple visits canceled secondary to being discharged to a group home facility and extended stay in the hospital. She continues to have 10-10 pain in her right shoulder. She denies any numbness tingling distally. She spent a short time in a [facility] after her last discharge and then went home. She notes that last night her recliner tipped over falling onto her right shoulder increasing her pain. She is presented back to the hospital with inability to care for self. Past Medical History Past Medical History (Chronic Problems): Chronic Problems (Last Reviewed 07/22/20 @ 21:[address] Ranjeet Richardson MD) Hypertension (Chronic) Diabetes mellitus type 2 in obese (Chronic) Dyslipidemia (Chronic) Chronic stable Asthma (Chronic) Medical History: Medical History (Last Reviewed 07/22/20 @ 21:[address] Ranjeet Richardson MD) Diabetes mellitus E11.9 Diabetes mellitus E11.9 Allergies ciprofloxacin Allergy (Verified 07/22/20 15:23) Unknown hydrochlorothiazide Allergy (Verified 07/22/20 15:23) Unknown pentazocine [From Talwin] Allergy (Verified 07/22/20 15:23) Unknown Home Medications: Ambulatory Orders Medication Instructions Recorded Omeprazole [Prilosec] 20 mg PO BID 12/19/13 Simvastatin [Zocor] 40 mg PO QHS 12/19/13 Topiramate [Topamax] 50 mg PO BID 12/19/13 Albuterol Aerosols [Ventolin 2.5 mg INHALATION Q4H PRN PRN 05/09/14 Aerosols] Glucosam/Kiran-Msm1/C/Cricket/Bosw 1 each PO BID 05/09/14 [Osteo Bi-Flex Caplet] Insulin NPH Human [Humulin N Pen] 60 units SC DAILY@0730 05/09/14 Insulin Regular, Human [Novolin R] 20 unit SC BIDAC 05/09/14 Aspirin [Aspirin, Baby] 81 mg PO DAILY@0800 08/26/18 Budesonide/Formoterol 160/4.5 1 puff INHALATION BID PRN PRN 08/26/18 [Symbicort 160/4.5 Mcg Inhaler (SP)] Paroxetine HCl 30 mg PO DAILY 08/26/18 Amlodipine [Norvasc] 10 mg PO DAILY #0 08/28/18 Tizanidine HCl [Zanaflex] 2 mg PO Q8H PRN PRN #20 tab 08/28/18 Insulin NPH Human [Humulin N Pen] 40 units SC QHS 07/10/20 cycloBENZAPRine HCl 5 mg PO TID PRN PRN tab 07/15/20 [Cyclobenzaprine HCl] Cetirizine HCl [Zyrtec] 10 mg PO DAILY 07/22/20 Cholecalciferol (Vitamin D3) 1,000 unit PO DAILY 07/22/20 [Vitamin D3] Lamotrigine [Lamictal] 300 mg PO BID 07/22/20 Phenobarbital 30 mg PO DAILY 07/22/20 Phenobarbital 60 mg PO DAILY 07/22/20 Surgical History: cholecystectomy, hysterectomy, - - 2 c-sections Smoking Status: Never smoker - *Family History Paternal History Items: Cancer Maternal History Items: Cancer Review of Systems Constitutional: Denies: Chills, Fever, Weight Change HEENT: Denies: Head Aches, Sinus Congestion, Sinus Drainage Cardiovascular: Denies: Chest Pain, Palpitations Respiratory: Denies: Cough, Shortness of breath at rest, Sputum production Gastrointestinal: Denies: Abdominal Pain, Nausea, Vomiting Genitourinary: Denies: Dysuria Musculoskeletal: Reports: Joint Pain, Joint swelling, Joint Tenderness, Shoulder Pain Skin: Denies: Rash, Wounds Neurological: Reports: Balance problems Psychiatric: Denies: Anxiety, Depression, Homicidal Ideations, Suicidal Ideations Hematologic/ Lymphatic: Denies: Easy Bruising, Easy Bleeding Patient Problems: Active and Suspected Problems (Last Reviewed 07/22/20 @ 21:[address] Ranjeet Richardson MD) Shoulder fracture, right (Acute) Comminuted right humeral fracture (Acute) Recurrent falls (Acute) Debility (Acute) Objective: Left shoulder, left humerus, left hand and rib x-rays were all reviewed as well as left shoulder CT scan. These show a comminuted four-part proximal humerus fracture with significant displacement posteriorly and impaction. - Physical Exam Vitals/I&O's: Vital Signs Temp Pulse Resp BP Pulse Ox 98.0 F 70 18 125/62 H 98 07/23/20 05:56 07/23/20 07:03 07/23/20 07:03 07/23/20 05:56 07/23/20 05:56 Oxygen Delivery Method Room Air Weight: 261 lb 0.437 oz Body Mass Index (BMI) 44.8 Finger Stick Blood Glucose 198 Intake and Output for Last 24 Hours 07/21/20 07/22/20 07/23/20 23:59 23:59 23:59 Intake Total 600 / 600 Output Total 100 / 100 Balance 500 / 500 General: Alert, Oriented x3, Cooperative HEENT: Atraumatic Neck: No JVD Lungs: - - Nonlabored breathing Cardiovascular: - - Regular pulse rate Abdomen: Non-Distended, - - Obese Extremities: - - Right upper extremity shows ecchymosis and swelling. Tenderness palpation over the proximal humerus. Limited range of motion secondary to pain. Positive thumbs up, okay sign and cross his fingers. Sensations intact light touch Ax/R/M/U Skin: - - Ecchymosis Neurological: Cranial nerves II-XII grossly intact Laboratory Results 07/22/20 17:29: WBC 10.6, RBC 3.97 L, Hgb 12.2, Hct 34.7 L, MCV 87.4, MCH 30.7, MCHC 35.2 D, RDW Std Deviation 39.8, RDW Coeff of Linda 12.4, Plt Count 545 H, MPV 10.8, Immature Gran % (Auto) 0.500, Neut % (Auto) 64.8, Lymph % (Auto) 23.5, [place] % (Auto) 6.3, Eos % (Auto) 3.7, Baso % (Auto) 1.2 H, Absolute Neuts (auto) 6.9, Absolute Lymphs (auto) 2.50, Nucleated RBC % 0 07/22/20 17:29: Sodium 136, Potassium 4.7, Chloride 107, Carbon Dioxide 26.0, Anion Gap 3 L, BUN 11, Creatinine 0.88, Estim Creat Clear Calc 53.53, Est GFR (MDRD) Af Amer 81, Est GFR (MDRD) Non-Af 67, BUN/Creatinine Ratio 12.4, Glucose 359 H, Calcium 8.5 07/22/20 22:22: POC Glucose 334 H 07/23/20 08:13: POC Glucose 189 H Current Medications Acetaminophen (Acetaminophen 325 Mg Tablet) 650 mg PO Q6H PRN PRN PRN Reason: Pain Score 1-10/Temp > 100.7 F Last Admin: 07/23/20 06:03 Dose: 650 mg Documented by: Albuterol Sulfate (Albuterol 2.5 Mg/3 Ml Vial.Neb.) 2.5 mg INHALATION Q2H PRN PRN PRN Reason: SOB/Wheezing Albuterol Sulfate (Albuterol 2.5 Mg/3 Ml Vial.Neb.) 2.5 mg INHALATION Q6HWA.RT [facility] Last Admin: 07/23/20 07:03 Dose: 2.5 mg Documented by: Amlodipine Besylate (Amlodipine 10 Mg Tablet) 10 mg PO DAILY [facility] Aspirin (Aspirin 81 Mg Tab.Chew) 81 mg PO DAILY@0800 [facility] Last Admin: 07/23/20 08:18 Dose: 81 mg Documented by: Atorvastatin Calcium (Atorvastatin Calcium 20 Mg Tablet) 20 mg PO QHS [facility] Last Admin: 07/22/20 22:27 Dose: 20 mg Documented by: Budesonide (Budesonide Respules 0.5 Mg/2 Ml Ampul.Neb.) 0.5 mg INHALATION Q12H. RT [facility] Last Admin: 07/23/20 07:05 Dose: 0.5 mg Documented by: Cholecalciferol (Cholecalciferol (Vit D3) 1,000 Unit (25mcg)) 1,000 unit PO DAILY [facility] Cyclobenzaprine HCl (Cyclobenzaprine Hcl 5 Mg Tablet) 5 mg PO TID PRN PRN PRN Reason: pain/muscle spasms Dextrose (Dextrose 50%-Water 25 Gm/50 Ml Disp.Syrin) 0 gm IV X1 PRN; Protocol PRN Reason: Hypoglycemia Enoxaparin Sodium (Enoxaparin 40 Mg/0.4 Ml Syringe) 40 mg SC BID [facility] Last Admin: 07/22/20 22:27 Dose: 40 mg Documented by: Glucagon (Glucagon 1 Mg/Ml Syringe) 1 mg IM .X1 PRN PRN Reason: Hypoglycemia Hydralazine HCl (Hydralazine 20 Mg/Ml Vial) 10 mg IV Q4H PRN PRN PRN Reason: SBP > 160 or DBP > 120 Insulin Human Lispro (Insulin Lispro 100 Unit/Ml Insuln.Pen) 15 unit SC TIDCM [facility] Last Admin: 07/23/20 08:16 Dose: 15 u Documented by: Insulin Human Lispro (Insulin Lispro 100 Unit/Ml Insuln.Pen) 0 unit SC ACHS [facility]; Protocol Last Admin: 07/23/20 08:15 Dose: 2 u Documented by: Insulin Human NPH (Insulin Nph Human 100 Units/Ml Pen) 60 units SC DAILY@0730 [facility] Last Admin: 07/23/20 08:16 Dose: 60 u Documented by: Insulin Human NPH (Insulin Nph Human 100 Units/Ml Pen) 40 units SC QHS [facility] Last Admin: 07/22/20 22:36 Dose: 40 u Documented by: Lamotrigine (Lamotrigine 150 Mg Tablet) 300 mg PO BID [facility] Last Admin: 07/22/20 22:27 Dose: 300 mg Documented by: Loratadine (Loratadine 10 Mg Tablet) 10 mg PO DAILY [facility] Ondansetron HCl (Ondansetron 4 Mg/2 Ml Vial) 4 mg IV Q8H PRN PRN PRN Reason: NAUSEA/VOMITING Last Admin: 07/23/20 00:56 Dose: 4 mg Documented by: Oxycodone HCl (Oxycodone 5 Mg Tablet) 5 mg PO Q4H PRN PRN PRN Reason: Pain Score 6-10/10 Last Admin: 07/23/20 08:28 Dose: 5 mg Documented by: Pantoprazole Sodium (Pantoprazole Sodium 20 Mg Tablet) 20 mg PO BID [facility] Last Admin: 07/22/20 22:27 Dose: 20 mg Documented by: Paroxetine HCl (Paroxetine 10 Mg Tablet) 30 mg PO DAILY [facility] Phenobarbital (Phenobarbital 32.4 Mg Tablet) 32.4 mg PO DAILY [facility] Phenobarbital (Phenobarbital 32.4 Mg Tablet) 64.8 mg PO QPM [facility] Last Admin: 07/22/20 22:27 Dose: 64.8 mg Documented by: Senna/Docusate Sodium (Senna/Docusate Sodium 1 Tablet) 2 tablet PO BID PRN PRN PRN Reason: Constipation Last Admin: 07/23/20 06:03 Dose: 2 tablet Documented by: Sodium Chloride (0.9% Saline Lock 10 Ml Syringe) 10 - 40 ml IV UD PRN PRN Reason: SALINE FLUSH Last Admin: 07/23/20 00:57 Dose: 10 ml Documented by: Tizanidine HCl (Tizanidine Hcl 2 Mg Tablet) 2 mg PO Q8H PRN PRN PRN Reason: muscle pain/spasm Last Admin: 07/22/20 22:36 Dose: 2 mg Documented by: Topiramate (Topiramate 50 Mg Tablet) 50 mg PO BID [facility] Last Admin: 07/22/20 22:27 Dose: 50 mg Documented by: Assessment/Plan All Active Problems (Last Reviewed 07/22/20 @ 21:[address] Ranjeet Richardson MD) Fall (Acute) Proximal humerus fracture (Acute) Shoulder fracture, right (Acute) Comminuted right humeral fracture (Acute) Recurrent falls (Acute) Debility (Acute) Right four-part proximal humerus fracture. Patient has significant pain in disability associated with her shoulder. This is her second stent to the hospital. I explained the patient that she is not an ideal candidate for surgery however with her severe limitations and severe pain if he were to proceed with surgery a reverse total shoulder replacement was recommended. Patient reports that with her significant mount of pain and discomfort as well as inability to function she would like to consider surgery. Based on her fracture pattern nonhealing healing and risk of avascular necrosis are significantly high. I recommended a reverse total shoulder replacement is an appropriate surgical option. Risks and benefits of the procedure were discussed the patient including but not limited to blood loss, DVTs, PEs, nervous damage, infection, the risk of anesthesia include loss of life. Patient demonstrates an understanding we also gregory the risk of dislocation and chronic pain associated with these fractures. At this time I have explained the patient that I will have to work through my office in order to obtain appropriate time for surgery however in the meantime while patient is at the hospital and he testing for surgical clearance should be obtained. We may need to discharge the patient briefly once we have a definitive surgical date. I had like to have it done in the next 1 to 2 weeks post considering the acuity of the injury and the amount of pain and dysfunction the patient is in. [facility] Office:
[2020-07-23] MEDS: Topiramate 50 MG Tablet PO ×2 (10:12→21:04)
[2020-07-23] MEDS: Pantoprazole Sodium 20 MG Tablet PO ×2 (10:12→21:04)
[2020-07-23] MEDS: Enoxaparin 40 MG/0.4 ML Syringe SC ×2 (10:12→21:05)
[2020-07-23] MEDS: Phenobarbital 32.4 MG Tablet PO (10:12)
[2020-07-23] MEDS: amLODIPine 10 MG Tablet PO (10:12)
[2020-07-23] MEDS: lamoTRIgine 150 MG Tablet 300 MG PO ×2 (10:12→21:04)
[2020-07-23] MEDS: PARoxetine 10 MG Tablet 30 MG PO (10:12)
[2020-07-23] MEDS: Loratadine 10 MG Tablet PO (10:12)
[2020-07-23 12:06] LABS: Bedside Glucose 105 mg/dL (70-110)
[2020-07-23] MEDS: tiZANidine HCl 2 MG Tablet PO ×2 (12:43→21:04)
--- NOTE | 2020-07-23 13:28 | PN_ITS ---
Patient Problems: Active and Suspected Problems (Last Reviewed 07/22/20 @ 21:[address] Ranjeet Richardson MD) Shoulder fracture, right (Acute) Comminuted right humeral fracture (Acute) Recurrent falls (Acute) Debility (Acute) Reason for Visit: failure to thrive Subjective: Still with significant pain in shoulder. Vitals/I&O's: Vital Signs Temp Pulse Resp BP Pulse Ox 36.4 C L 78 18 144/61 H 97 07/23/20 12:32 07/23/20 12:32 07/23/20 12:32 07/23/20 12:32 07/23/20 12:32 Oxygen Delivery Method Room Air Weight: 118.4 kg Body Mass Index (BMI) 44.8 Finger Stick Blood Glucose 198 Intake and Output for Last 24 Hours 07/21/20 07/22/20 07/23/20 23:59 23:59 23:59 Intake Total 600 / 600 Output Total 100 / 100 Balance 500 / 500 General: Alert, No apparent distress HEENT: Atraumatic, Normocephalic Oral: Moist Mucosa, No Gingival or Mucosal Lesions/ Ulcerations Neck: No Nodes, Thyroid Normal Size and Texture Lungs: Clear to auscultation, Normal air movement, No rhonchi, No wheeze Cardiovascular: Regular rate, Regular Rhythm, Normal S1, Normal S2, No murmurs Abdomen: Bowel Sounds Present, Soft, Non Tender, Non-Distended, No Hepato- splenomegaly Extremities: No edema, No Calf Tenderness Skin: No rashes, No breakdown Psych/Mental Status: Normal Affect, Appropriate Laboratory Results 07/22/20 17:29: WBC 10.6, RBC 3.97 L, Hgb 12.2, Hct 34.7 L, MCV 87.4, MCH 30.7, MCHC 35.2 D, RDW Std Deviation 39.8, RDW Coeff of Linda 12.4, Plt Count 545 H, M PV 10.8, Immature Gran % (Auto) 0.500, Neut % (Auto) 64.8, Lymph % (Auto) 23.5, Banks % (Auto) 6.3, Eos % (Auto) 3.7, Baso % (Auto) 1.2 H, Absolute Neuts (auto) 6.9, Absolute Lymphs (auto) 2.50, Nucleated RBC % 0 07/22/20 17:29: Sodium 136, Potassium 4.7, Chloride 107, Carbon Dioxide 26.0, Anion Gap 3 L, BUN 11, Creatinine 0.88, Estim Creat Clear Calc 53.53, Est GFR (MDRD) Af Amer 81, Est GFR (MDRD) Non-Af 67, BUN/Creatinine Ratio 12.4, Glucose 359 H, Calcium 8.5 07/22/20 22:22: POC Glucose 334 H 07/23/20 08:13: POC Glucose 189 H 07/23/20 11:59: POC Glucose 105 Current Medications Acetaminophen (Acetaminophen 325 Mg Tablet) 650 mg PO Q6H PRN PRN PRN Reason: Pain Score 1-10/Temp > 100.7 F Last Admin: 07/23/20 06:03 Dose: 650 mg Documented by: Albuterol Sulfate (Albuterol 2.5 Mg/3 Ml Vial.Neb.) 2.5 mg INHALATION Q2H PRN PRN PRN Reason: SOB/Wheezing Albuterol Sulfate (Albuterol 2.5 Mg/3 Ml Vial.Neb.) 2.5 mg INHALATION Q6HWA.RT [facility] Last Admin: 07/23/20 07:03 Dose: 2.5 mg Documented by: Amlodipine Besylate (Amlodipine 10 Mg Tablet) 10 mg PO DAILY [facility] Last Admin: 07/23/20 10:12 Dose: 10 mg Documented by: Aspirin (Aspirin 81 Mg Tab.Chew) 81 mg PO DAILY@0800 [facility] Last Admin: 07/23/20 08:18 Dose: 81 mg Documented by: Atorvastatin Calcium (Atorvastatin Calcium 20 Mg Tablet) 20 mg PO QHS [facility] Last Admin: 07/22/20 22:27 Dose: 20 mg Documented by: Budesonide (Budesonide Respules 0.5 Mg/2 Ml Ampul.Neb.) 0.5 mg INHALATION Q12H.RT [facility] Last Admin: 07/23/20 07:05 Dose: 0.5 mg Documented by: Cholecalciferol (Cholecalciferol (Vit D3) 1,000 Unit (25mcg)) 1,000 unit PO DAILY [facility] Last Admin: 07/23/20 10:12 Dose: 1,000 unit Documented by: Cyclobenzaprine HCl (Cyclobenzaprine Hcl 5 Mg Tablet) 5 mg PO TID PRN PRN PRN Reason: pain/muscle spasms Dextrose (Dextrose 50%-Water 25 Gm/50 Ml Disp.Syrin) 0 gm IV X1 PRN; Protocol PRN Reason: Hypoglycemia Enoxaparin Sodium (Enoxaparin 40 Mg/0.4 Ml Syringe) 40 mg SC BID [facility] Last Admin: 07/23/20 10:12 Dose: 40 mg Documented by: Glucagon (Glucagon 1 Mg/Ml Syringe) 1 mg IM .X1 PRN PRN Reason: Hypoglycemia Hydralazine HCl (Hydralazine 20 Mg/Ml Vial) 10 mg IV Q4H PRN PRN PRN Reason: SBP > 160 or DBP > 120 Insulin Human Lispro (Insulin Lispro 100 Unit/Ml Insuln.Pen) 15 unit SC TIDCM [facility] Last Admin: 07/23/20 12:39 Dose: 15 u Documented by: Insulin Human Lispro (Insulin Lispro 100 Unit/Ml Insuln.Pen) 0 unit SC ACHS [facility]; Protocol Last Admin: 07/23/20 12:01 Dose: Not Given Documented by: Insulin Human NPH (Insulin Nph Human 100 Units/Ml Pen) 60 units SC DAILY@0730 [facility] Last Admin: 07/23/20 08:16 Dose: 60 u Documented by: Insulin Human NPH (Insulin Nph Human 100 Units/Ml Pen) 40 units SC QHS [facility] Last Admin: 07/22/20 22:36 Dose: 40 u Documented by: Lamotrigine (Lamotrigine 150 Mg Tablet) 300 mg PO BID [facility] Last Admin: 07/23/20 10:12 Dose: 300 mg Documented by: Loratadine (Loratadine 10 Mg Tablet) 10 mg PO DAILY [facility] Last Admin: 07/23/20 10:12 Dose: 10 mg Documented by: Ondansetron HCl (Ondansetron 4 Mg/2 Ml Vial) 4 mg IV Q8H PRN PRN PRN Reason: NAUSEA/VOMITING Last Admin: 07/23/20 00:56 Dose: 4 mg Documented by: Oxycodone HCl (Oxycodone 5 Mg Tablet) 5 mg PO Q4H PRN PRN PRN Reason: Pain Score 6-10/10 Last Admin: 07/23/20 12:43 Dose: 5 mg Documented by: Pantoprazole Sodium (Pantoprazole Sodium 20 Mg Tablet) 20 mg PO BID [facility] Last Admin: 07/23/20 10:12 Dose: 20 mg Documented by: Paroxetine HCl (Paroxetine 10 Mg Tablet) 30 mg PO DAILY [facility] Last Admin: 07/23/20 10:12 Dose: 30 mg Documented by: Phenobarbital (Phenobarbital 32.4 Mg Tablet) 32.4 mg PO DAILY [facility] Last Admin: 07/23/20 10:12 Dose: 32.4 mg Documented by: Phenobarbital (Phenobarbital 32.4 Mg Tablet) 64.8 mg PO QPM [facility] Last Admin: 07/22/20 22:27 Dose: 64.8 mg Documented by: Senna/Docusate Sodium (Senna/Docusate Sodium 1 Tablet) 2 tablet PO BID PRN PRN PRN Reason: Constipation Last Admin: 07/23/20 06:03 Dose: 2 tablet Documented by: Sodium Chloride (0.9% Saline Lock 10 Ml Syringe) 10 - 40 ml IV UD PRN PRN Reason: SALINE FLUSH Last Admin: 07/23/20 00:57 Dose: 10 ml Documented by: Tizanidine HCl (Tizanidine Hcl 2 Mg Tablet) 2 mg PO Q8H PRN PRN PRN Reason: muscle pain/spasm Last Admin: 07/23/20 12:43 Dose: 2 mg Documented by: Topiramate (Topiramate 50 Mg Tablet) 50 mg PO BID [facility] Last Admin: 07/23/20 10:12 Dose: 50 mg Documented by: STROKE Vital Signs/Narrative: Vital Signs Temp Pulse Resp BP Pulse Ox 07/23/20 12:32 36.4 C L 78 18 144/61 H 97 Medical Necessity - Tobacco Use Smoking Status: Never smoker Assessment/Plan All Active Problems (Last Reviewed 07/22/20 @ 21:[address] Ranjeet Richardson MD) Fall (Acute) Proximal humerus fracture (Acute) Shoulder fracture, right (Acute) Comminuted right humeral fracture (Acute) Recurrent falls (Acute) Debility (Acute) 1. failure to thrive * due to right humerus fracture in patient with fair performance status * will need SNF, unlikely to occur until 07/25 at the earliest 2. Right humerus fracture * displaced at humeral head (reviewed images with patient) * seen by Dr. Richard. Plan for reverse should replacement, likely in 1-2 weeks. * Patient is medically optimized to proceed with surgery (NSQIP), however, given other medical comorbidities, she is of higher risk for complications, but not prohibitive. 3. vitamin d deficiency * ergocalciferol 50k units for 8 weeks 4. DM2 * uncontrolled * continue NPH, log and SSI for now 5. Chronic conditions: overall complicate her care, but are stable * mobid obesity * HTN * HLP * Asthma 6. VTE prophylaxis: LMWH OBSV E&M: [id number] Subsequent observation care L2
--- NOTE | 2020-07-23 13:29 | CASEMGMT ---
JUNIOR MORROW ASSESSMENT Intro role of CM to patient in room. Patient states she is wanting to go to a SNF [facility] discharge and [facility] (see social work note). Patient lives alone in apartment. Her family assists with driving, shopping and daughter was trying to assist with care needs prior to admission. Patient states she does not have any alternate insurance and SNF as well as hospital stay will need to be paid by [facility]. -JUNIOR MORROW reviewed transfer form. Patient states her hospital stay will be covered by the [place]. JUNIOR MORROW let her know that without other insurance, the [facility] available. Pt said my [place] doctor is working on this. Patient did say she would transfer to [place] if necessary. JUNIOR MORROW recommended transfer center for [facility] be notified of admission and clinicals sent as the [facility] generally does not pay hospital stay unless notified and no bed availability at their facility. Pt is agreeable to have clinicals faxed and transfer center notified. -Called to [place] Transfer [facility] . Spoke with [facility] who states they do have patient's information and clinical can be faxed. -Pt also stated she is going to have surgery with Dr. Richard in next 1-2 weeks. JUNIOR MORROW asked if this was going to be covered by the [place] and she stated her dr in [place] was working on this. Attempted to call [facility]. to notify patient only has [facility] Benefits, but no ability to leave a message. PCP: [place] [place] Insurance: [facility] Medical benefits only [facility]acy: [facility] benefit: yes LNOK: SonMiguel Ángel and Daughter Valentina DME: walker, cane, nebulizer SW referral: SNF placement referral for Saturday Pt DC Goal: SNF DC Plan: anticipate SNF under [facility] benefits. Will not be able to arrange on the weekend. Aristeo DE [place] PAZ RN ACM
[2020-07-23 17:55] LABS: Bedside Glucose 97 mg/dL (70-110)
[2020-07-23] MEDS: Insulin NPH Human 100 UNITS/ML PEN 40 UNITS SC (21:04)
[2020-07-23] MEDS: Atorvastatin Calcium 20 MG Tablet PO (21:04)
[2020-07-23] MEDS: Phenobarbital 32.4 MG Tablet 64.8 MG PO (21:05)
[2020-07-23 21:30] LABS: Bedside Glucose 242 mg/dL (70-110)
[2020-07-24] MEDS: Acetaminophen 325 MG Tablet 650 MG PO (02:50)
[2020-07-24] MEDS: oxyCODONE 5 MG Tablet PO ×2 (02:50→07:47)
[2020-07-24 02:54] VITALS: BP 143/70; PULSE 72; RESP 18; TEMP 36.8; O2SAT 98
[2020-07-24] MEDS: tiZANidine HCl 2 MG Tablet PO (05:44)
[2020-07-24 07:51] LABS: Bedside Glucose 105 mg/dL (70-110)
--- NOTE | 2020-07-24 08:16 | PCM.PN.HOSP ---
Patient Problems: Active and Suspected Problems (Last Reviewed 07/22/20 @ 21:[address] Ranjeet Richardson MD) Shoulder fracture, right (Acute) Comminuted right humeral fracture (Acute) Recurrent falls (Acute) Debility (Acute) Reason for Visit: FTT Subjective: pain worse today. any movement aggravates her pain. Vitals/I&O's: Vital Signs Temp Pulse Resp BP Pulse Ox 36.8 C 72 18 143/70 H 98 07/24/20 02:54 07/24/20 02:54 07/24/20 02:54 07/24/20 02:54 07/24/20 02:54 Oxygen Delivery Method Room Air Weight: 118.4 kg Body Mass Index (BMI) 44.8 Finger Stick Blood Glucose 198 Intake and Output for Last 24 Hours 07/22/20 07/23/20 07/24/20 23:59 23:59 23:59 Intake Total 600 / 1100 1300 / 1300 Output Total 100 / 100 Balance 500 / 1000 1300 / 1300 General: Alert, No apparent distress HEENT: Atraumatic, Normocephalic Oral: Moist Mucosa, No Gingival or Mucosal Lesions/ Ulcerations Neck: No Nodes, Thyroid Normal Size and Texture Abdomen: Soft, Obese Extremities: No edema, Capillary Refill Less than 3 Seconds, No Calf Tenderness, Peripheral Pulses Normal, - - right arm in sling. Skin: No rashes, No breakdown Psych/Mental Status: Normal Affect, Appropriate Laboratory Results 07/23/20 08:13: POC Glucose 189 H 07/23/20 11:59: POC Glucose 105 07/23/20 17:51: POC Glucose 97 07/23/20 21:00: POC Glucose 242 H 07/24/20 07:42: POC Glucose 105 Current Medications Amlodipine Besylate (Amlodipine 10 Mg Tablet) 10 mg PO DAILY COUNTS INCLUDE 234 BEDS AT THE [facility] Last Admin: 07/23/20 10:12 Dose: 10 mg Documented by: Aspirin (Aspirin 81 Mg Tab.Chew) 81 mg PO DAILY@0800 COUNTS INCLUDE 234 BEDS AT THE [facility] Last Admin: 07/23/20 08:18 Dose: 81 mg Documented by: Atorvastatin Calcium (Atorvastatin Calcium 20 Mg Tablet) 20 mg PO QHS COUNTS INCLUDE 234 BEDS AT THE [facility] Last Admin: 07/23/20 21:04 Dose: 20 mg Documented by: Cholecalciferol (Cholecalciferol (Vit D3) 1,000 Unit (25mcg)) 1,000 unit PO DAILY COUNTS INCLUDE 234 BEDS AT THE [facility] Last Admin: 07/23/20 10:12 Dose: 1,000 unit Documented by: Cyclobenzaprine HCl (Cyclobenzaprine Hcl 5 Mg Tablet) 5 mg PO TID PRN PRN PRN Reason: pain/muscle spasms Dextrose (Dextrose 50%-Water 25 Gm/50 Ml Disp.Syrin) 0 gm IV X1 PRN; Protocol PRN Reason: Hypoglycemia Enoxaparin Sodium (Enoxaparin 40 Mg/0.4 Ml Syringe) 40 mg SC BID COUNTS INCLUDE 234 BEDS AT THE [facility] Last Admin: 07/23/20 21:05 Dose: 40 mg Documented by: Ergocalciferol (Ergocalciferol 50,000 Unit Capsule) 50,000 unit PO Sa@1000 COUNTS INCLUDE 234 BEDS AT THE [facility] Last Admin: 07/23/20 15:41 Dose: 50,000 unit Documented by: Glucagon (Glucagon 1 Mg/Ml Syringe) 1 mg IM .X1 PRN PRN Reason: Hypoglycemia Hydralazine HCl (Hydralazine 20 Mg/Ml Vial) 10 mg IV Q4H PRN PRN PRN Reason: SBP > 160 or DBP > 120 Insulin Human Lispro (Insulin Lispro 100 Unit/Ml Insuln.Pen) 15 unit SC TIDCM COUNTS INCLUDE 234 BEDS AT THE [facility] Last Admin: 07/23/20 18:19 Dose: Not Given Documented by: Insulin Human Lispro (Insulin Lispro 100 Unit/Ml Insuln.Pen) 0 unit SC ACHS COUNTS INCLUDE 234 BEDS AT THE [facility]; Protocol Last Admin: 07/24/20 07:43 Dose: Not Given Documented by: Insulin Human NPH (Insulin Nph Human 100 Units/Ml Pen) 60 units SC DAILY@0730 COUNTS INCLUDE 234 BEDS AT THE [facility] Last Admin: 07/23/20 08:16 Dose: 60 u Documented by: Insulin Human NPH (Insulin Nph Human 100 Units/Ml Pen) 40 units SC QHS COUNTS INCLUDE 234 BEDS AT THE [facility] Last Admin: 07/23/20 21:04 Dose: 40 u Documented by: Lamotrigine (Lamotrigine 150 Mg Tablet) 300 mg PO BID COUNTS INCLUDE 234 BEDS AT THE [facility] Last Admin: 07/23/20 21:04 Dose: 300 mg Documented by: Loratadine (Loratadine 10 Mg Tablet) 10 mg PO DAILY COUNTS INCLUDE 234 BEDS AT THE [facility] Last Admin: 07/23/20 10:12 Dose: 10 mg Documented by: Ondansetron HCl (Ondansetron 4 Mg/2 Ml Vial) 4 mg IV Q8H PRN PRN PRN Reason: NAUSEA/VOMITING Last Admin: 07/23/20 00:56 Dose: 4 mg Documented by: Pantoprazole Sodium (Pantoprazole Sodium 20 Mg Tablet) 20 mg PO BID COUNTS INCLUDE 234 BEDS AT THE [facility] Last Admin: 07/23/20 21:04 Dose: 20 mg Documented by: Paroxetine HCl (Paroxetine 10 Mg Tablet) 30 mg PO DAILY COUNTS INCLUDE 234 BEDS AT THE [facility] Last Admin: 07/23/20 10:12 Dose: 30 mg Documented by: Phenobarbital (Phenobarbital 32.4 Mg Tablet) 32.4 mg PO DAILY COUNTS INCLUDE 234 BEDS AT THE [facility] Last Admin: 07/23/20 10:12 Dose: 32.4 mg Documented by: Phenobarbital (Phenobarbital 32.4 Mg Tablet) 64.8 mg PO QPM COUNTS INCLUDE 234 BEDS AT THE [facility] Last Admin: 07/23/20 21:05 Dose: 64.8 mg Documented by: Senna/Docusate Sodium (Senna/Docusate Sodium 1 Tablet) 2 tablet PO BID PRN PRN PRN Reason: Constipation Last Admin: 07/23/20 06:03 Dose: 2 tablet Documented by: Sodium Chloride (0.9% Saline Lock 10 Ml Syringe) 10 - 40 ml IV UD PRN PRN Reason: SALINE FLUSH Last Admin: 07/23/20 00:57 Dose: 10 ml Documented by: Tizanidine HCl (Tizanidine Hcl 2 Mg Tablet) 2 mg PO Q8H PRN PRN PRN Reason: muscle pain/spasm Last Admin: 07/24/20 05:44 Dose: 2 mg Documented by: Topiramate (Topiramate 50 Mg Tablet) 50 mg PO BID COUNTS INCLUDE 234 BEDS AT THE [facility] Last Admin: 07/23/20 21:04 Dose: 50 mg Documented by: Medical Necessity - Tobacco Use Smoking Status: Never smoker Assessment/Plan All Active Problems (Last Reviewed 07/22/20 @ 21:[address] Ranjeet Richardson MD) Fall (Acute) Proximal humerus fracture (Acute) Shoulder fracture, right (Acute) Comminuted right humeral fracture (Acute) Recurrent falls (Acute) Debility (Acute) 1. failure to thrive due to right humerus fracture in patient with fair performance status will need SNF, unlikely to occur until 07/25 at the earliest 2. Right humerus fracture displaced at humeral head (reviewed images with patient) seen by Dr. Richard. Plan for reverse should replacement, likely in 1-2 weeks. Patient is medically optimized to proceed with surgery (NSQIP), however, given other medical comorbidities, she is of higher risk for complications, but not prohibitive. pain worse today. Only on 5mg of oxycodone. Will optimize with low dose fentanyl patch, oxycodone 5 and 10mg, scheduled acetaminophen, ketorolac, lidocaine patch 3. vitamin d deficiency ergocalciferol 50k units for 8 weeks 4. DM2 fair control continue NPH, log and SSI for now 5. Chronic conditions: overall complicate her care, but are stable mobid obesity HTN HLP Asthma 6. VTE prophylaxis: LMWH 7. Disposition: ultimately SNF if surgery could be performed this early this coming week, then pt could likely stay. However, if would not be until much later, then she would go to SNF and return for surgery. OBSV E&M: 16038 Subsequent observation care L2
[2020-07-24] MEDS: Insulin Lispro 100 UNIT/ML INSULN.PEN 15 UNIT SC ×2 (08:43→17:12)
[2020-07-24] MEDS: Aspirin 81 MG TAB.CHEW PO (08:43)
[2020-07-24] MEDS: Insulin NPH Human 100 UNITS/ML PEN 60 UNITS SC (08:44)
[2020-07-24 08:48] VITALS: BP 140/68; PULSE 72; RESP 18; TEMP 36.4; O2SAT 99
[2020-07-24 09:00] VITALS: PULSE 80
[2020-07-24] MEDS: Loratadine 10 MG Tablet PO (10:28)
[2020-07-24] MEDS: lamoTRIgine 150 MG Tablet 300 MG PO ×2 (10:28→21:31)
[2020-07-24] MEDS: Lidocaine 5% Patch 1 PATCH TOPICAL (10:28)
[2020-07-24] MEDS: amLODIPine 10 MG Tablet PO (10:29)
[2020-07-24] MEDS: Enoxaparin 40 MG/0.4 ML Syringe SC ×2 (10:29→21:31)
[2020-07-24] MEDS: Topiramate 50 MG Tablet PO ×2 (10:30→21:31)
[2020-07-24] MEDS: Pantoprazole Sodium 20 MG Tablet PO ×2 (10:30→21:31)
[2020-07-24] MEDS: PARoxetine 10 MG Tablet 30 MG PO (10:30)
[2020-07-24] MEDS: Phenobarbital 32.4 MG Tablet PO (10:30)
[2020-07-24 11:56] LABS: Bedside Glucose 101 mg/dL (70-110)
[2020-07-24] MEDS: Acetaminophen 500 MG Tablet 1000 MG PO ×2 (13:27→21:31)
[2020-07-24] MEDS: oxyCODONE 5 MG Tablet 10 MG PO ×3 (13:27→21:31)
[2020-07-24 14:24] VITALS: BP 157/73; PULSE 82; RESP 18; TEMP 36.5; O2SAT 96
[2020-07-24 17:20] LABS: Bedside Glucose 101 mg/dL (70-110)
[2020-07-24 20:25] VITALS: BP 158/77; PULSE 86; RESP 18; TEMP 36.8; O2SAT 96
[2020-07-24] MEDS: Phenobarbital 32.4 MG Tablet 64.8 MG PO (20:53)
[2020-07-24] MEDS: cycloBENZAPRine HCl 5 MG TABLET PO (20:53)
[2020-07-24] MEDS: Atorvastatin Calcium 20 MG Tablet PO (21:31)
[2020-07-24] MEDS: Insulin NPH Human 100 UNITS/ML PEN 40 UNITS SC (21:32)
[2020-07-24 21:45] LABS: Bedside Glucose 127 mg/dL (70-110)
[2020-07-25] MEDS: oxyCODONE 5 MG Tablet 10 MG PO ×4 (02:05→17:28)
[2020-07-25 02:24] VITALS: BP 152/72; PULSE 73; RESP 16; TEMP 36.6; O2SAT 96
[2020-07-25] MEDS: Acetaminophen 500 MG Tablet 1000 MG PO ×3 (06:03→21:28)
[2020-07-25] MEDS: cycloBENZAPRine HCl 5 MG TABLET PO (06:04)
[2020-07-25 07:41] VITALS: BP 154/70; PULSE 98; RESP 18; TEMP 36.6; O2SAT 100
[2020-07-25 07:45] LABS: Bedside Glucose 87 mg/dL (70-110)
[2020-07-25] MEDS: Aspirin 81 MG TAB.CHEW PO (07:47)
[2020-07-25] MEDS: Insulin Lispro 100 UNIT/ML INSULN.PEN 15 UNIT SC ×3 (07:49→16:28)
[2020-07-25] MEDS: lamoTRIgine 150 MG Tablet 300 MG PO ×2 (07:50→21:27)
[2020-07-25] MEDS: Loratadine 10 MG Tablet PO (07:50)
[2020-07-25] MEDS: PARoxetine 10 MG Tablet 30 MG PO (07:51)
[2020-07-25] MEDS: Pantoprazole Sodium 20 MG Tablet PO ×2 (07:51→21:27)
[2020-07-25] MEDS: Topiramate 50 MG Tablet PO ×2 (07:51→21:27)
[2020-07-25] MEDS: amLODIPine 10 MG Tablet PO (07:51)
[2020-07-25] MEDS: Enoxaparin 40 MG/0.4 ML Syringe SC ×2 (07:52→21:26)
[2020-07-25] MEDS: Phenobarbital 32.4 MG Tablet PO (09:15)
--- NOTE | 2020-07-25 09:48 | CASEMGMT ---
Addendum entered by Melida Leo 07/25/20 10:41: BRANDI received call from Vance PAZ at [facility]. Vance states that the following are [facility] connected facilities. [facility], [facility], [facility], [facility] and [facility] in [place], [place]. BRANDI updated Vance that both [facility] and [facility] don't have beds available at this time. Vance states to just let her know which facility is able to accept pt and she will need a new GEC form, new H+P, new PT/OT notes for pt. SW in to speak with pt. BRANDI introduced self and role at [facility]. SW familiar with pt from previous visits. Pt states she doesn't remember speaking to this worker the last time. SW spoke with pt regarding SNF. Pt state she is agreeable to SNF but will not return to [place]. Pt states that there were two facilities that were tried on Saturday but they didn't have room. SW informed pt that those facilities were [facility] and they do not have beds available at this time. BRANDI informed pt that the next closest SNF will be in [place] which are [facility] and [facility]. Pt states she has no preference, asked for this worker to call her daughter Valentina to discuss SNF. BRANDI placed a call to Valentina. Valentina confirms plan is SNF. Valentina states she tried to care for pt at home but she is also caring for children and it was too much for her. Valentina states pt flipped herself out of chair. BRANDI updated Valentina that next closest SNF are [facility] and [facility] in [place]. Valentina states she would like to call the SNF and figure out reviews before making a decision. BRANDI also encouraged Valentina to go on Medicare Website to see reviews of SNF. BRANDI asked Valentina to call this worker back, sometime today, regarding decision for SNF as process with the VA needs to be started today. Valentina states she will do so. BRANDI provided Valentina with [facility] and [facility] numbers. BRANDI provided Valentina with this worker's direct number. Plan: SNF pending acceptance and VA approval Original Note: Social Work Note BRANDI placed a call to Vance [place]iem[facility] PAZ and left message to return this worker's phone call regarding pt. SW waiting for call back. From previous notes, other SNF facilities in the area that are VA connected are [facility] in [place] and [facility] in [place]. Plan: SNF Melida Leo TRACK WALKER, ROLLER INSPECTOR AND MENDER
--- NOTE | 2020-07-25 11:35 | CASEMGMT ---
Addendum entered by Melida Leo 07/25/20 15:40: SW received call from pt's daughter Valentina. BRANDI updated Valentina that [facility] is able to accept pt pending VA approval. Valentina states understanding. Addendum entered by Melida Leo 07/25/20 14:49: SW received call from Luh at [facility] stating they are able to accept pt. Luh asked when pt's surgery is scheduled for. BRANDI informed Luh that this worker is waiting for RN CRISTHIAN to get call back from VA regarding appointment for surgery but will update Luh once this worker knows. Luh states understanding. BRANDI placed a call to [facility] BRANDI at [place] and left message that [facility] is able to accept pt. SW in to speak with pt. SW updated pt that [facility] is able to accept pt. SW has to complete PAS/RR and one of the questions asked when pt's seizures began. SW asked pt. Pt states her seizures began after she was 22. BRANDI attempted to call pt's daughter Valentina to update, voicemail left. Plan: [facility] pending VA approval Melida Leo EMERGENCY MEDICAL SERVICES COORDINATOR, SHIPPING & RECEIVING LEAD Addendum entered by Melida Leo 07/25/20 14:11: BRANDI placed a call to Luh at [facility]. Luh states she is waiting to hear from DON regarding referral. Luh requests discharge tomorrow. Original Note: Social Work Note SW received call from pt's daughter Valentina stating first choice is [facility] and second choice is [facility]. BRANDI explained referral process and that VA will need approval again. Valentina states understanding. BRANDI placed a call to Luh at [facility] and provided referral. Luh states pt will need to be made aware that they currently have COVID cases. BRANDI faxed referral. BRANDI in to speak with pt. SW updated pt that Valentina prefers [facility] and a referral will be made. SW explained referral process and that pt will need VA approval again. SW did update pt that [facility] does have COVID cases. SW explained that pt has limited options for SNF that are VA connected and it is hard to find any SNF that doesn't have COVID cases. Pt agreeable to [facility] referral. BRANDI completed GEC form. BRANDI faxed GEC form, H+P, PT/OT to Bin PAZ at [place]. Plan: SNF pending acceptance and VA approval Melida Leo MSW, SHIPPING & RECEIVING LEAD
[2020-07-25 11:40] LABS: Bedside Glucose 163 mg/dL (70-110)
[2020-07-25] MEDS: Insulin Lispro 100 UNIT/ML INSULN.PEN SC (12:23)
[2020-07-25 14:00] VITALS: BP 147/71; PULSE 88; RESP 18; TEMP 36.7; O2SAT 98
--- NOTE | 2020-07-25 14:16 | PN_ITS ---
Patient Problems: Active and Suspected Problems (Last Reviewed 07/22/20 @ 21:[address] Ranjeet Richardson MD) Shoulder fracture, right (Acute) Comminuted right humeral fracture (Acute) Recurrent falls (Acute) Debility (Acute) Subjective: Patient seen and examined. She complains of severe pain in her right shoulder due to the fracture. Patient is very tearful, and says she doesnt think she will be able to go home without getting her surgery done. Reveiw of systems is otherwise negative. Vitals/I&O's: Vital Signs Temp Pulse Resp BP Pulse Ox 97.8 F 98 18 154/70 H 100 07/25/20 07:41 07/25/20 07:41 07/25/20 07:41 07/25/20 07:41 07/25/20 07:41 Oxygen Delivery Method Room Air Weight: 261 lb 0.437 oz Body Mass Index (BMI) 44.8 Finger Stick Blood Glucose 198 Intake and Output for Last 24 Hours 07/23/20 07/24/20 07/25/20 23:59 23:59 23:59 Intake Total 600 / 1100 1600 / 1600 600 / 600 Output Total 100 / 100 Balance 500 / 1000 1600 / 1600 600 / 600 General: Alert, Oriented x3, Cooperative, - - morbid obesity HEENT: Atraumatic, PERRLA, EOMI, Normocephalic Oral: Dry Mucosa Neck: Supple, No JVD, Negative Carotid Bruits Lungs: Clear to auscultation, Normal air movement, No rhonchi, No wheeze, No rales Cardiovascular: Regular rate, Regular Rhythm, Normal S1, Normal S2, No murmurs Abdomen: Bowel Sounds Present, Soft, Non Tender Extremities: No clubbing, No cyanosis, No edema, Capillary Refill Less than 3 Seconds Skin: No rashes, No breakdown Musculoskeletal: - - RUE in a sling. tenderness of RUE Lymphatic: No Cervical, Supraclavicular, or Inguinal Adenopathy Neurological: Cranial nerves II-XII grossly intact, Neuro grossly intact, Motor Exam 5/5 strength throughout Psych/Mental Status: - - tearful due to pain, Alert and oriented to time, place, person, mood and affect Laboratory Results 07/24/20 17:05: POC Glucose 101 07/24/20 21:28: POC Glucose 127 H 07/25/20 07:38: POC Glucose 87 07/25/20 11:32: POC Glucose 163 H Current Medications Acetaminophen (Acetaminophen 500 Mg Tablet) 1,000 mg PO Q8 [facility] Last Admin: 07/25/20 12:26 Dose: 1,000 mg Documented by: Amlodipine Besylate (Amlodipine 10 Mg Tablet) 10 mg PO DAILY [facility] Last Admin: 07/25/20 07:51 Dose: 10 mg Documented by: Aspirin (Aspirin 81 Mg Tab.Chew) 81 mg PO DAILY@0800 [facility] Last Admin: 07/25/20 07:47 Dose: 81 mg Documented by: Atorvastatin Calcium (Atorvastatin Calcium 20 Mg Tablet) 20 mg PO QHS [facility] Last Admin: 07/24/20 21:31 Dose: 20 mg Documented by: Cholecalciferol (Cholecalciferol (Vit D3) 1,000 Unit (25mcg)) 1,000 unit PO DAILY [facility] Last Admin: 07/25/20 07:51 Dose: 1,000 unit Documented by: Cyclobenzaprine HCl (Cyclobenzaprine Hcl 5 Mg Tablet) 5 mg PO TID PRN PRN PRN Reason: pain/muscle spasms Last Admin: 07/25/20 06:04 Dose: 5 mg Documented by: Dextrose (Dextrose 50%-Water 25 Gm/50 Ml Disp.Syrin) 0 gm IV X1 PRN; Protocol PRN Reason: Hypoglycemia Enoxaparin Sodium (Enoxaparin 40 Mg/0.4 Ml Syringe) 40 mg SC BID [facility] Last Admin: 07/25/20 07:52 Dose: 40 mg Documented by: Ergocalciferol (Ergocalciferol 50,000 Unit Capsule) 50,000 unit PO Sa@1000 [facility] Last Admin: 07/23/20 15:41 Dose: 50,000 unit Documented by: Fentanyl (Fentanyl 12 Mcg Patch) 12 mcg TD Q3D@1000 [facility] Last Admin: 07/24/20 08:43 Dose: 12 mcg Documented by: Glucagon (Glucagon 1 Mg/Ml Syringe) 1 mg IM .X1 PRN PRN Reason: Hypoglycemia Hydralazine HCl (Hydralazine 20 Mg/Ml Vial) 10 mg IV Q4H PRN PRN PRN Reason: SBP > 160 or DBP > 120 Insulin Human Lispro (Insulin Lispro 100 Unit/Ml Insuln.Pen) 15 unit SC TIDCM [facility] Last Admin: 07/25/20 12:22 Dose: 15 u Documented by: Insulin Human Lispro (Insulin Lispro 100 Unit/Ml Insuln.Pen) 0 unit SC [facility]; Protocol Last Admin: 07/25/20 12:23 Dose: 2 u Documented by: Insulin Human NPH (Insulin Nph Human 100 Units/Ml Pen) 60 units SC DAILY@0730 [facility] Last Admin: 07/25/20 08:29 Dose: Not Given Documented by: Insulin Human NPH (Insulin Nph Human 100 Units/Ml Pen) 40 units SC QHS [facility] Last Admin: 07/24/20 21:32 Dose: 40 u Documented by: Ketorolac Tromethamine (Ketorolac 15 Mg/Ml Vial) 15 mg IV Q6H PRN PRN PRN Reason: Pain Score 1-10 Stop: 07/29/20 08:14 Lamotrigine (Lamotrigine 150 Mg Tablet) 300 mg PO BID [facility] Last Admin: 07/25/20 07:50 Dose: 300 mg Documented by: Loratadine (Loratadine 10 Mg Tablet) 10 mg PO DAILY [facility] Last Admin: 07/25/20 07:50 Dose: 10 mg Documented by: Ondansetron HCl (Ondansetron 4 Mg/2 Ml Vial) 4 mg IV Q8H PRN PRN PRN Reason: NAUSEA/VOMITING Last Admin: 07/23/20 00:56 Dose: 4 mg Documented by: Oxycodone HCl (Oxycodone 5 Mg Tablet) 5 mg PO Q4H PRN PRN PRN Reason: Pain Score 4-5 Oxycodone HCl (Oxycodone 5 Mg Tablet) 10 mg PO Q4H PRN PRN PRN Reason: Pain Score 6-10 Last Admin: 07/25/20 10:44 Dose: 10 mg Documented by: Pantoprazole Sodium (Pantoprazole Sodium 20 Mg Tablet) 20 mg PO BID [facility] Last Admin: 07/25/20 07:51 Dose: 20 mg Documented by: Paroxetine HCl (Paroxetine 10 Mg Tablet) 30 mg PO DAILY [facility] Last Admin: 07/25/20 07:51 Dose: 30 mg Documented by: Phenobarbital (Phenobarbital 32.4 Mg Tablet) 32.4 mg PO DAILY [facility] Last Admin: 07/25/20 09:15 Dose: 32.4 mg Documented by: Phenobarbital (Phenobarbital 32.4 Mg Tablet) 64.8 mg PO QPM [facility] Last Admin: 07/24/20 20:53 Dose: 64.8 mg Documented by: Senna/Docusate Sodium (Senna/Docusate Sodium 1 Tablet) 2 tablet PO BID PRN PRN PRN Reason: Constipation Last Admin: 07/23/20 06:03 Dose: 2 tablet Documented by: Sodium Chloride (0.9% Saline Lock 10 Ml Syringe) 10 - 40 ml IV UD PRN PRN Reason: SALINE FLUSH Last Admin: 07/23/20 00:57 Dose: 10 ml Documented by: Tizanidine HCl (Tizanidine Hcl 2 Mg Tablet) 2 mg PO Q8H PRN PRN PRN Reason: muscle pain/spasm Last Admin: 07/24/20 05:44 Dose: 2 mg Documented by: Topiramate (Topiramate 50 Mg Tablet) 50 mg PO BID [facility] Last Admin: 07/25/20 07:51 Dose: 50 mg Documented by: Medical Necessity - Tobacco Use Smoking Status: Never smoker Assessment/Plan All Active Problems (Last Reviewed 07/22/20 @ 21:[address] Ranjeet Richardson MD) Fall (Acute) Proximal humerus fracture (Acute) Shoulder fracture, right (Acute) Comminuted right humeral fracture (Acute) Recurrent falls (Acute) Debility (Acute) #Debility due to right humeral fracture * With upper extremity in a sling. * Orthopedic surgery on board. Plan is for reverse shoulder replacement in 1 to 2 weeks. * On fentanyl patch and oxycodone as well as Tylenol and ketorolac. * PT OT on board. Fall precautions. * will discuss with orthopedics about planned surgery since patient says she doesnt think she can go home or to a rehab facility before the surgery is carried out #Type 2 diabetes mellitus: On NPH insulin 60 units daily and 40 units nightly. Insulin sliding scale. Checks AC at bedtime. #Hypertension: On amlodipine. IV hydralazine as needed #Hyperlipidemia: on statin #Asthma: Breathing treatments as needed #Morbid obesity: Plicate acute care, recovery and expected prognosis. DVT prophylaxis: lovenox Inpatient E&M: [id number] [facility] L2
--- NOTE | 2020-07-25 16:20 | CHAPLAIN ---
Type of Pastoral Visit ___ Initial Visit ___ Follow-up Visit ___ On-call Visit ___ General Patient Visit ___ Spiritual Assessment ___ Family Conference ___ Bereavement ___ Rapid Response ___ Code Blue ___ Other (describe below) Pastoral Care Referral From _x__ Patient ___ Family _x__ Nurse ___ Physician ___ Claims Customer Service Representative ___ Rat Trapper ___ Other (describe below) Sacrament/Intervention ___ Active listening ___ Anointing ___ Amish ___ Bereavement ___ Communion ___ Ya exploration ___ ___ Life review ___ Prayer ___ Reconciliation ___ Sacrament of Sick ___ Supportive presence ___ Wedding _x__ Other (describe below) Pastoral Comments two attempts made to see patient; pt was on the phone at first attempt and pt was sleeping on second attempt
[2020-07-25 16:41] LABS: Bedside Glucose 117 mg/dL (70-110)
[2020-07-25 20:21] VITALS: BP 148/63; PULSE 82; RESP 20; TEMP 36.9; O2SAT 95
[2020-07-25] MEDS: Phenobarbital 32.4 MG Tablet 64.8 MG PO (20:23)
[2020-07-25] MEDS: Insulin NPH Human 100 UNITS/ML PEN 40 UNITS SC (21:24)
[2020-07-25] MEDS: Atorvastatin Calcium 20 MG Tablet PO (21:27)
[2020-07-25 21:35] LABS: Bedside Glucose 161 mg/dL (70-110)
[2020-07-25 21:52] LABS: Mucous, Urine 0 SEEN /hpf (<or=2+)
[2020-07-25 22:08] LABS: Color, Urine Yellow (Yellow); Glucose, Dipstick Normal (Normal); Ketone-Dipstick Negative (Negative); Leukocyte Esterase-Dipstick 500 /ul (Negative); Nitrite-Dipstick Negative (Negative); Occult Blood-Urine 25 /ul (Negative); Protein-Dipstick 100 mg/dl (Negative); Specific Gravity, Urine 1.015 (1.002-1.030); Urine Bilirubin Dipstick Negative (Negative); Urine Clarity Sl. Cloudy (Clear); Urine Urobilinogen Normal (Normal)
[2020-07-25 22:19] LABS: Bacteria RARE /hpf (None Seen); Red Blood Cells-Urine 0-5 SEEN /hpf (0-5); Squamous Epithelial Cells - UA 0-5 SEEN /hpf (5-10); White Blood Cells >100 SEEN /hpf (0-5)
[2020-07-26] MEDS: 0.9% Saline Lock 10 ML Syringe IV ×2 (00:19→22:38)
[2020-07-26] MEDS: Ceftriaxone 1 GM/50 ML BAG IV (00:19)
[2020-07-26 02:26] VITALS: BP 157/62; PULSE 78; RESP 18; TEMP 36.9; O2SAT 97
[2020-07-26] MEDS: oxyCODONE 5 MG Tablet 10 MG PO ×4 (04:20→22:41)
[2020-07-26 04:26] LABS: Bedside Glucose 99 mg/dL (70-110)
[2020-07-26] MEDS: Acetaminophen 500 MG Tablet 1000 MG PO ×3 (06:07→22:03)
[2020-07-26 07:07] LABS: Absolute Lymphocyte Count 2.85 X10^3/uL (0.83-4.51); Absolute Neutrophil Count 6.9 X10^3/uL (2.0-7.7); Basophil# 0.13 X10^3/uL; Basophil% 1.2 % (0-1); Eosinophil# 0.66 X10^3/uL; Eosinophils% 5.9 % (0-5); Hematocrit 37.8 % (37-47); Hemoglobin 12.5 g/dL (12.0-15.0); Lymphocyte # 2.85 X10^3/ul (4.0); Lymphocyte % 25.3 % (19-41); Mean Corp Hgb Conc 33.1 g/dL (32-36); Mean Corpuscular Hgb 29.5 pg (27.0-32.0); Mean Corpuscular Volume 89.2 fL (81-99); Mean Platelet Vol. 10.8 fl (6.2-12.0); Monocyte# 0.62 X10^3/uL; Monocyte% 5.5 % (0-10); NRBC Flagged by Analyzer 0 % (0-5); Neutrophil # 6.92 X10^3/uL (2.7-7.7); Neutrophil % 61.5 % (47-70); Platelet Count 551 K/mm3 (150-450); RBC Distribution Width CV 12.8 % (11.6-14.6); RBC Distribution Width SD 41.8 fl (35.1-43.9); Red Blood Count 4.24 M/mm3 (4.2-5.4); White Blood Count 11.3 K/mm3 (4.4-11.0)
[2020-07-26 07:41] LABS: Anion Gap 7 (5-15); BUN 19 mg/dL (7-18); BUN/Creat Ratio 24.7 RATIO (10-20); Calcium,Total 9.3 mg/dL (8.5-10.1); Chloride 106 mmol/L (98-107); Creatinine, Serum 0.77 mg/dL (0.55-1.02); EST Glomerular Filtration Rate 79 mL/min (>60); Est Glom Filt Rate - Afr Amer 96 mL/min (>60); Glucose 115 mg/dL (74-106); Potassium 3.8 mmol/L (3.5-5.1); Sodium Level 138 mmol/L (136-145)
[2020-07-26 08:01] VITALS: BP 162/64; PULSE 77; RESP 16; TEMP 36.8; O2SAT 96
[2020-07-26 08:10] LABS: Bedside Glucose 153 mg/dL (70-110)
--- NOTE | 2020-07-26 09:44 | CASEMGMT ---
JUNIOR MORROW received message from Froylan PACHECO at Dr. Hairston's office at [facility]. Froylan requesting documentation regarding ortho consult. JUNIOR MORROW faxed clinical information to Froylan PACHECO and left message for call back. CRISTHIAN will continue to follow this patient and plan for a safe discharge.
[2020-07-26] MEDS: Insulin NPH Human 100 UNITS/ML PEN 60 UNITS SC (09:57)
[2020-07-26] MEDS: Aspirin 81 MG TAB.CHEW PO (09:57)
[2020-07-26] MEDS: Loratadine 10 MG Tablet PO (09:58)
[2020-07-26] MEDS: lamoTRIgine 150 MG Tablet 300 MG PO ×2 (09:59→22:02)
[2020-07-26] MEDS: Enoxaparin 40 MG/0.4 ML Syringe SC ×2 (09:59→22:02)
[2020-07-26] MEDS: amLODIPine 10 MG Tablet PO (09:59)
[2020-07-26] MEDS: Pantoprazole Sodium 20 MG Tablet PO ×2 (09:59→22:02)
[2020-07-26] MEDS: PARoxetine 10 MG Tablet 30 MG PO (09:59)
[2020-07-26] MEDS: Topiramate 50 MG Tablet PO ×2 (10:00→22:02)
[2020-07-26] MEDS: Phenobarbital 32.4 MG Tablet PO (10:02)
[2020-07-26 10:10] VITALS: PULSE 72
--- NOTE | 2020-07-26 10:50 | PCM.PN.HOSP ---
Patient Problems: Active and Suspected Problems (Last Reviewed 07/22/20 @ 21:[address] Ranjeet Richardson MD) Shoulder fracture, right (Acute) Comminuted right humeral fracture (Acute) Recurrent falls (Acute) Debility (Acute) Subjective: Patient seen and examined. She was tearful again because of pain from her shoulder. Does complain of frequency with urination, and her UA was positive for UTI. SHe is on IV ceftriaxone. Review of systems otherwise negative. Vitals/I&O's: Vital Signs Temp Pulse Resp BP Pulse Ox 98.2 F 77 16 162/64 H 96 07/26/20 08:01 07/26/20 08:01 07/26/20 08:01 07/26/20 08:01 07/26/20 08:01 Oxygen Delivery Method Room Air Weight: 261 lb 0.437 oz Body Mass Index (BMI) 44.8 Finger Stick Blood Glucose 198 Intake and Output for Last 24 Hours 07/24/20 07/25/20 07/26/20 23:59 23:59 23:59 Intake Total 1600 / 1600 1200 / 1200 350 / 350 Balance 1600 / 1600 1200 / 1200 350 / 350 General: Alert, Oriented x3, Cooperative, tearful and distressed- - morbid obesity HEENT: Atraumatic, PERRLA, EOMI, Normocephalic Oral: Dry Mucosa Neck: Supple, No JVD, Negative Carotid Bruits Lungs: Clear to auscultation, Normal air movement, No rhonchi, No wheeze, No rales Cardiovascular: Regular rate, Regular Rhythm, Normal S1, Normal S2, No murmurs Abdomen: Bowel Sounds Present, Soft, Non Tender Extremities: No clubbing, No cyanosis, No edema, Capillary Refill Less than 3 Seconds Skin: No rashes, No breakdown Musculoskeletal: - - RUE in a sling. tenderness of RUE Lymphatic: No Cervical, Supraclavicular, or Inguinal Adenopathy Neurological: Cranial nerves II-XII grossly intact, Neuro grossly intact, Motor Exam 5/5 strength throughout Psych/Mental Status: - - tearful due to pain, Alert and oriented to time, place, person, mood and affect Laboratory Results 07/25/20 11:32: POC Glucose 163 H 07/25/20 16:25: POC Glucose 117 H 07/25/20 21:17: POC Glucose 161 H 07/25/20 21:45: Urine Color Yellow, Urine Clarity Sl. Cloudy, Urine pH 6.0, Ur Specific Banner 1.015, Urine Protein 100 H, Urine Glucose (UA) Normal, Urine Ketones Negative, Urine Occult Blood 25 H, Urine Nitrite Negative, Urine Bilirubin Negative, Urine Urobilinogen Normal, Ur Leukocyte Esterase 500 H, Urine RBC 0-5 SEEN, Urine WBC >100 SEEN, Ur Squamous Epith Cells 0-5 SEEN, Urine Bacteria RARE, Urine Mucus 0 SEEN 07/26/20 04:19: POC Glucose 99 07/26/20 06:17: WBC 11.3 H, RBC 4.24, Hgb 12.5, Hct 37.8, MCV 89.2, MCH 29.5, MCHC 33.1 D, RDW Std Deviation 41.8, RDW Coeff of Linda 12.8, Plt Count 551 H, MPV 10.8, Immature Gran % (Auto) 0.600, Neut % (Auto) 61.5, Lymph % (Auto) 25.3, [place] % (Auto) 5.5, Eos % (Auto) 5.9 H, Baso % (Auto) 1.2 H, Absolute Neuts (auto) 6.9, Absolute Lymphs (auto) 2.85, Nucleated RBC % 0 07/26/20 06:17: Sodium 138, Potassium 3.8, Chloride 106, Carbon Dioxide 25.0, Anion Gap 7, BUN 19 H, Creatinine 0.77, Estim Creat Clear Calc 45.20, Est GFR (MDRD) Af Amer 96, Est GFR (MDRD) Non-Af 79, BUN/Creatinine Ratio 24.7 H, Glucose 115 H, Calcium 9.3 07/26/20 08:02: POC Glucose 153 H Diagnostic Data Hand X-Ray 07/22/20 15:53 IMPRESSION: No acute fracture or dislocation. Electronically Signed: Deep Echols MD at 16:29 EST Tel , Service support , Ribs w/Chest X-Ray 07/22/20 15:53 IMPRESSION: RIBS: Acute or chronic fracture the anterolateral right seventh rib. CHEST: Normal x-ray examination of the chest. Electronically Signed: Deep Echols MD at 16:33 EST Tel , Service support , Shoulder X-Ray 07/22/20 15:53 IMPRESSION: No change in the anteriorly displaced fracture the humeral neck. Electronically Signed: Deep Echols MD at 16:32 EST Tel , Service support , Current Medications Acetaminophen (Acetaminophen 500 Mg Tablet) 1,000 mg PO Q8 [facility] Last Admin: 07/26/20 06:07 Dose: 1,000 mg Documented by: Amlodipine Besylate (Amlodipine 10 Mg Tablet) 10 mg PO DAILY [facility] Last Admin: 07/26/20 09:59 Dose: 10 mg Documented by: Aspirin (Aspirin 81 Mg Tab.Chew) 81 mg PO DAILY@0800 [facility] Last Admin: 07/26/20 09:57 Dose: 81 mg Documented by: Atorvastatin Calcium (Atorvastatin Calcium 20 Mg Tablet) 20 mg PO QHS [facility] Last Admin: 07/25/20 21:27 Dose: 20 mg Documented by: Cholecalciferol (Cholecalciferol (Vit D3) 1,000 Unit (25mcg)) 1,000 unit PO DAILY [facility] Last Admin: 07/26/20 10:00 Dose: 1,000 unit Documented by: Cyclobenzaprine HCl (Cyclobenzaprine Hcl 5 Mg Tablet) 5 mg PO TID PRN PRN PRN Reason: pain/muscle spasms Last Admin: 07/25/20 06:04 Dose: 5 mg Documented by: Dextrose (Dextrose 50%-Water 25 Gm/50 Ml Disp.Syrin) 0 gm IV X1 PRN; Protocol PRN Reason: Hypoglycemia Enoxaparin Sodium (Enoxaparin 40 Mg/0.4 Ml Syringe) 40 mg SC BID [facility] Last Admin: 07/26/20 09:59 Dose: 40 mg Documented by: Ergocalciferol (Ergocalciferol 50,000 Unit Capsule) 50,000 unit PO Sa@1000 [facility] Last Admin: 07/23/20 15:41 Dose: 50,000 unit Documented by: Fentanyl (Fentanyl 12 Mcg Patch) 12 mcg TD Q3D@1000 [facility] Last Admin: 07/24/20 08:43 Dose: 12 mcg Documented by: Glucagon (Glucagon 1 Mg/Ml Syringe) 1 mg IM .X1 PRN PRN Reason: Hypoglycemia Hydralazine HCl (Hydralazine 20 Mg/Ml Vial) 10 mg IV Q4H PRN PRN PRN Reason: SBP > 160 or DBP > 120 Sodium Chloride () 250 mls @ 15 mls/hr IV .[id number] PRN PRN Reason: Saline Flush Sodium Chloride () 250 mls @ 15 mls/hr IV .[id number] PRN PRN Reason: Additional IVPB Infusion Insulin Human Lispro (Insulin Lispro 100 Unit/Ml Insuln.Pen) 15 unit SC TIDCM [facility] Last Admin: 07/26/20 09:56 Dose: Not Given Documented by: Insulin Human Lispro (Insulin Lispro 100 Unit/Ml Insuln.Pen) 0 unit SC ACHS [facility]; Protocol Last Admin: 07/26/20 09:54 Dose: Not Given Documented by: Insulin Human NPH (Insulin Nph Human 100 Units/Ml Pen) 60 units SC DAILY@0730 [facility] Last Admin: 07/26/20 09:57 Dose: 30 u Documented by: Insulin Human NPH (Insulin Nph Human 100 Units/Ml Pen) 40 units SC QHS [facility] Last Admin: 07/25/20 21:24 Dose: 40 u Documented by: Ketorolac Tromethamine (Ketorolac 15 Mg/Ml Vial) 15 mg IV Q6H PRN PRN PRN Reason: Pain Score 1-10 Stop: 07/29/20 08:14 Lamotrigine (Lamotrigine 150 Mg Tablet) 300 mg PO BID [facility] Last Admin: 07/26/20 09:59 Dose: 300 mg Documented by: Loratadine (Loratadine 10 Mg Tablet) 10 mg PO DAILY [facility] Last Admin: 07/26/20 09:58 Dose: 10 mg Documented by: Ondansetron HCl (Ondansetron 4 Mg/2 Ml Vial) 4 mg IV Q8H PRN PRN PRN Reason: NAUSEA/VOMITING Last Admin: 07/23/20 00:56 Dose: 4 mg Documented by: Oxycodone HCl (Oxycodone 5 Mg Tablet) 5 mg PO Q4H PRN PRN PRN Reason: Pain Score 4-5 Oxycodone HCl (Oxycodone 5 Mg Tablet) 10 mg PO Q4H PRN PRN PRN Reason: Pain Score 6-10 Last Admin: 07/26/20 10:11 Dose: 10 mg Documented by: Pantoprazole Sodium (Pantoprazole Sodium 20 Mg Tablet) 20 mg PO BID [facility] Last Admin: 07/26/20 09:59 Dose: 20 mg Documented by: Paroxetine HCl (Paroxetine 10 Mg Tablet) 30 mg PO DAILY [facility] Last Admin: 07/26/20 09:59 Dose: 30 mg Documented by: Phenobarbital (Phenobarbital 32.4 Mg Tablet) 32.4 mg PO DAILY [facility] Last Admin: 07/26/20 10:02 Dose: 32.4 mg Documented by: Phenobarbital (Phenobarbital 32.4 Mg Tablet) 64.8 mg PO QPM [facility] Last Admin: 07/25/20 20:23 Dose: 64.8 mg Documented by: Senna/Docusate Sodium (Senna/Docusate Sodium 1 Tablet) 2 tablet PO BID PRN PRN PRN Reason: Constipation Last Admin: 07/23/20 06:03 Dose: 2 tablet Documented by: Sodium Chloride (0.9% Saline Lock 10 Ml Syringe) 10 - 40 ml IV UD PRN PRN Reason: SALINE FLUSH Last Admin: 07/26/20 00:19 Dose: 10 ml Documented by: Tizanidine HCl (Tizanidine Hcl 2 Mg Tablet) 2 mg PO Q8H PRN PRN PRN Reason: muscle pain/spasm Last Admin: 07/24/20 05:44 Dose: 2 mg Documented by: Topiramate (Topiramate 50 Mg Tablet) 50 mg PO BID [facility] Last Admin: 07/26/20 10:00 Dose: 50 mg Documented by: STROKE Vital Signs/Narrative: Vital Signs Temp Pulse Resp BP Pulse Ox 07/26/20 08:01 98.2 F 77 16 162/64 H 96 Medical Necessity - Tobacco Use Smoking Status: Never smoker Assessment/Plan All Active Problems (Last Reviewed 07/22/20 @ 21:[address] Ranjeet Richardson MD) Fall (Acute) Proximal humerus fracture (Acute) Shoulder fracture, right (Acute) Comminuted right humeral fracture (Acute) Recurrent falls (Acute) Debility (Acute) #Debility due to right humeral fracture With upper extremity in a sling. Orthopedic surgery on board. On fentanyl patch and oxycodone as well as Tylenol and ketorolac. PT OT on board. Fall precautions. discussed with orthopedics today: plan is for surgery either tomorrow or Saturday. Per the NSQIP surgical risk calculator, she has a 4.1% below average risk of serious complication and a 5.1% below average risk of any complication. Patient therefore cleared for surgery with moderate risk. #UTI: urine culture pending. on IV ceftriaxone #Type 2 diabetes mellitus: On NPH insulin 60 units daily and 40 units nightly. Insulin sliding scale. Checks AC at bedtime. #Hypertension: On amlodipine. IV hydralazine as needed #Hyperlipidemia: on statin #Asthma: Breathing treatments as needed #Morbid obesity: Complicates acute care, recovery and expected prognosis. DVT prophylaxis: lovenox Inpatient E&M: 90324 Subs Hosp L2
--- NOTE | 2020-07-26 11:38 | CASEMGMT ---
Addendum entered by Melida Leo 07/26/20 13:41: BRANDI received call from [facility] BRANDI stating [facility] will need updated PT/OT notes once pt has surgery. [place] will not approve SNF until pt has surgery and [facility] receives updated PT/OT. Original Note: Social Work Note Pt is now scheduled to have surgery (tomorrow or Saturday). BRANDI placed a call to [facility] BRANDI and left message that pt is now scheduled to have surgery and asked if the [facility] will need updated PT/OT after surgery before making decision regarding SNF. [place] approval for SNF is still pending. BRANDI also placed a call to Luh at [facility] and left message updating her that pt is now having surgery, not sure when, but SW will keep her updated. BRANDI also updated [facility] that [facility] approval is still pending for SNF. Plan: [facility] pending [facility] approval. Pt now scheduled to have surgery. Melida Leo SALES AND SERVICE ADVISOR, [employer]
[2020-07-26] MEDS: Insulin Lispro 100 UNIT/ML INSULN.PEN SC (12:41)
[2020-07-26] MEDS: Insulin Lispro 100 UNIT/ML INSULN.PEN 15 UNIT SC ×2 (12:42→17:27)
--- NOTE | 2020-07-26 12:43 | CASEMGMT ---
Addendum entered by Melida Perdue 07/26/20 12:58: JUNIOR MORROW received message from Hodan at transfer center to call back at [phone] ext [phone]. JUNIOR MORROW called Hodan back and states that there are no ortho beds available at this time and to continue care at [facility]. Hodan requested call back tomorrow with update regarding surgery. Original Note: JUNIOR MORROW called [place] transfer line and spoke to Blanca. Blanca states that she is not sure if they have any ortho beds for patient. Blanca states that PCP Froylan PACHECO put in request for outsource ortho consult. Blanca transferred this RN CM to bed control to inquire on bed availability. Bed control tranferred this RN CM to JUNIOR Siu in transfer center and voice message left for return contact.
[2020-07-26 12:51] LABS: Bedside Glucose 245 mg/dL (70-110)
--- NOTE | 2020-07-26 14:17 | CHAPLAIN ---
Type of Pastoral Visit ___ Initial Visit ___ Follow-up Visit ___ On-call Visit ___ General Patient Visit ___ Spiritual Assessment ___ Family Conference ___ Bereavement ___ Rapid Response ___ Code Blue ___ Other (describe below) Pastoral Care Referral From ___ Patient ___ Family ___ Nurse ___ Physician ___ Director Of Student Financial Services ___ Maintenance Supervisor Electrical ___ Other (describe below) Sacrament/Intervention ___ Active listening ___ Anointing ___ Religious ___ Bereavement ___ Communion ___ Ya exploration ___ ___ Life review ___ Prayer ___ Reconciliation ___ Sacrament of Sick ___ Supportive presence ___ Wedding ___ Other (describe below) Pastoral Comments attempts made again today to visit patient; pt is sleeping; left a calling card
[2020-07-26 14:20] VITALS: BP 132/61; PULSE 79; RESP 18; TEMP 37.1; O2SAT 96
[2020-07-26 16:57] LABS: Bedside Glucose 121 mg/dL (70-110)
[2020-07-26 18:56] LABS: Bedside Glucose 142 mg/dL (70-110)
[2020-07-26] MEDS: Phenobarbital 32.4 MG Tablet 64.8 MG PO (20:08)
[2020-07-26 21:51] VITALS: BP 149/54; PULSE 74; RESP 18; TEMP 36.7; O2SAT 98
[2020-07-26 21:55] LABS: Bedside Glucose 119 mg/dL (70-110)
[2020-07-26] MEDS: Atorvastatin Calcium 20 MG Tablet PO (22:02)
[2020-07-27] VITALS (11 sets, daily range): BP systolic 127–175; BP diastolic 61–83; PULSE 73–100; RESP 16–18; TEMP 36.5–36.9; O2SAT 93–100; BMI 44.1; BMI 44.8
--- NOTE | 2020-07-27 | SHO_PTH ---
PATIENT: RICKEY JAQUEZ LOC: MS3 U#:[id number] AGE/SX: 70/F ROOM: UT322 RE07/27/[address]: Dr. Carolin Bell MD : 1950 BED: 1 DIS: 07/29/2020 SPEC #: [id number] RECD: 07/28/20 07:37 STATUS: KENDAL REQ #: [id number] FERNANDO: 07/27/20 00:[address]: Angel Richard DEPT: SURGICAL PATHOLOGY RECD BY: Hammad Bass ENTERED: 07/28/20 09:18 SP TYPE: HUMERUS OTHR DR: MD Dr. Carolin Low MD Dr. Paul Nielsen, MD Dr. Steven Widmer, MD Tissues: Humerus, NOS Procedures: Decalcification bone/plaque Surgery Specimen Level IV Comments: @ Ordering doctor for DEC edited from to @ by LOI at 07/28/20 1014 @ Ordering doctor for SUIV edited from to @ by LOI at 07/28/20 1014 @ Submitting doctor edited from to @ by LOI at 07/28/20 1014 HEADER OPERATION: Right shoulder replacement, reverse PRE-OP DIAGNOSIS: Right proximal humerus fracture TISSUE SUBMITTED: Right humeral head MICROSCOPIC DIAGNOSIS Right humeral head, shoulder replacement: Pieces of bone with focal hemorrhage, reactive changes and callus formation, clinically right proximal humerus fracture. PAKO:damaso 08/03/20 MICROSCOPIC DESCRIPTION Slides are reviewed. GROSS DESCRIPTION Received in fixative is one container labeled with the patient's name and designated right humeral head. The specimen consists of multiple irregular fragments of rainey bone ranging in size from 1.5 to 4 cm. Dipper Fish sections are submitted in two cassettes after decalcification. / AM:damaso 07/28/20 TC:5 CPT: 71793, 42776
[2020-07-27] MEDS: oxyCODONE 5 MG Tablet 10 MG PO ×3 (03:44→22:25)
[2020-07-27] MEDS: Acetaminophen 500 MG Tablet 1000 MG PO ×2 (05:29→22:28)
[2020-07-27 07:06] LABS: Absolute Lymphocyte Count 2.58 X10^3/uL (0.83-4.51); Absolute Neutrophil Count 3.8 X10^3/uL (2.0-7.7); Basophil# 0.11 X10^3/uL; Basophil% 1.4 % (0-1); Eosinophil# 0.51 X10^3/uL; Eosinophils% 6.6 % (0-5); Hematocrit 37.3 % (37-47); Hemoglobin 12.5 g/dL (12.0-15.0); Lymphocyte # 2.58 X10^3/ul (4.0); Lymphocyte % 33.6 % (19-41); Mean Corp Hgb Conc 33.5 g/dL (32-36); Mean Corpuscular Hgb 29.8 pg (27.0-32.0); Monocyte# 0.61 X10^3/uL; NRBC Flagged by Analyzer 0 % (0-5); Neutrophil # 3.81 X10^3/uL (2.7-7.7); Neutrophil % 49.7 % (47-70); Platelet Count 500 K/mm3 (150-450); RBC Distribution Width CV 12.8 % (11.6-14.6); RBC Distribution Width SD 41.3 fl (35.1-43.9); Red Blood Count 4.19 M/mm3 (4.2-5.4); White Blood Count 7.7 K/mm3 (4.4-11.0)
[2020-07-27 07:28] LABS: Anion Gap 7 (5-15); BUN 16 mg/dL (7-18); BUN/Creat Ratio 18.8 RATIO (10-20); Calcium,Total 8.7 mg/dL (8.5-10.1); Chloride 105 mmol/L (98-107); Creatinine, Serum 0.85 mg/dL (0.55-1.02); EST Glomerular Filtration Rate 70 mL/min (>60); Est Glom Filt Rate - Afr Amer 85 mL/min (>60); Estimated Creatinine Clearance 53.18 ml/min; Glucose 162 mg/dL (74-106); Sodium Level 139 mmol/L (136-145)
[2020-07-27 07:45] LABS: Bedside Glucose 184 mg/dL (70-110)
[2020-07-27 07:48] LABS: Hemoglobin A1c 9.6 % (3.8-5.6)
--- NOTE | 2020-07-27 07:52 | PN_ITS ---
Patient Problems: Active and Suspected Problems (Last Reviewed 07/22/20 @ 21:[address] Ranjeet Richardson MD) Shoulder fracture, right (Acute) Comminuted right humeral fracture (Acute) Recurrent falls (Acute) Debility (Acute) Subjective: Patient seen and examined. She still complains of being in pain. Review of systems otherwise negative. Blood sugar is running at 75 this morning so Lantus held for this morning as she is n.p.o. for surgery. She has otherwise remained hemodynamically stable. Labs and vitals reviewed. Vitals/I&O's: Vital Signs Temp Pulse Resp BP Pulse Ox 97.9 F 80 18 149/82 H 95 07/27/20 03:40 07/27/20 03:40 07/27/20 03:40 07/27/20 03:40 07/27/20 03:40 Oxygen Delivery Method Room Air Weight: 261 lb 0.437 oz Body Mass Index (BMI) 44.8 Finger Stick Blood Glucose 198 Intake and Output for Last 24 Hours 07/25/20 07/26/20 07/27/20 23:59 23:59 23:59 Intake Total 1200 / 1200 890 / 890 400 / 400 Balance 1200 / 1200 890 / 890 400 / 400 General: Alert, Oriented x3, Cooperative, - morbid obesity HEENT: Atraumatic, PERRLA, EOMI, Normocephalic Oral: Dry Mucosa Neck: Supple, No JVD, Negative Carotid Bruits Lungs: Clear to auscultation, Normal air movement, No rhonchi, No wheeze, No rales Cardiovascular: Regular rate, Regular Rhythm, Normal S1, Normal S2, No murmurs Abdomen: Bowel Sounds Present, Soft, Non Tender Extremities: No clubbing, No cyanosis, No edema, Capillary Refill Less than 3 Seconds Skin: No rashes, No breakdown Musculoskeletal: - - RUE in a sling. tenderness of RUE Lymphatic: No Cervical, Supraclavicular, or Inguinal Adenopathy Neurological: Cranial nerves II-XII grossly intact, Neuro grossly intact, Motor Exam 5/5 strength throughout Psych/Mental Status: - - Alert and oriented to time, place, person, mood and affect Microbiology Past 72 Hours 07/26/20 16:35 Mucosa - Nasopharyngeal SARS-CoV-2 Antigen (Rapid) - Final 07/25/20 21:45 Interface Orders Urine Culture - Preliminary GPC Poss Enterococcus sp Laboratory Results 07/26/20 08:02: POC Glucose 153 H 07/26/20 12:40: POC Glucose 245 H 07/26/20 16:51: POC Glucose 121 H 07/26/20 18:51: POC Glucose 142 H 07/26/20 21:46: POC Glucose 119 H 07/27/20 06:57: WBC 7.7, RBC 4.19 L, Hgb 12.5, Hct 37.3, MCV 89.0, MCH 29.8, MCHC 33.5, RDW Std Deviation 41.3, RDW Coeff of Linda 12.8, Plt Count 500 H, MPV 10.0, Immature Gran % (Auto) 0.700, Neut % (Auto) 49.7, Lymph % (Auto) 33.6, [place] % (Auto) 8.0, Eos % (Auto) 6.6 H, Baso % (Auto) 1.4 H, Absolute Neuts (auto) 3.8, Absolute Lymphs (auto) 2.58, Nucleated RBC % 0 07/27/20 06:57: Sodium 139, Potassium 4.0, Chloride 105, Carbon Dioxide 27.0, Anion Gap 7, BUN 16, Creatinine 0.85, Estim Creat Clear Calc 53.18, Est GFR (MDRD) Af Amer 85, Est GFR (MDRD) Non-Af 70, BUN/Creatinine Ratio 18.8, Glucose 162 H, Calcium 8.7 07/27/20 06:57: Hemoglobin A1c 9.6 H 07/27/20 07:36: POC Glucose 184 H Current Medications Acetaminophen (Acetaminophen 500 Mg Tablet) 1,000 mg PO Q8 [facility] Last Admin: 07/27/20 05:29 Dose: 1,000 mg Documented by: Amlodipine Besylate (Amlodipine 10 Mg Tablet) 10 mg PO DAILY [facility] Last Admin: 07/26/20 09:59 Dose: 10 mg Documented by: Aspirin (Aspirin 81 Mg Tab.Chew) 81 mg PO DAILY@0800 [facility] Last Admin: 07/26/20 09:57 Dose: 81 mg Documented by: Atorvastatin Calcium (Atorvastatin Calcium 20 Mg Tablet) 20 mg PO QHS [facility] Last Admin: 07/26/20 22:02 Dose: 20 mg Documented by: Cholecalciferol (Cholecalciferol (Vit D3) 1,000 Unit (25mcg)) 1,000 unit PO DAILY [facility] Last Admin: 07/26/20 10:00 Dose: 1,000 unit Documented by: Cyclobenzaprine HCl (Cyclobenzaprine Hcl 5 Mg Tablet) 5 mg PO TID PRN PRN PRN Reason: pain/muscle spasms Last Admin: 07/25/20 06:04 Dose: 5 mg Documented by: Dextrose (Dextrose 50%-Water 25 Gm/50 Ml Disp.Syrin) 0 gm IV X1 PRN; Protocol PRN Reason: Hypoglycemia Enoxaparin Sodium (Enoxaparin 40 Mg/0.4 Ml Syringe) 40 mg SC BID [facility] Last Admin: 07/26/20 22:02 Dose: 40 mg Documented by: Ergocalciferol (Ergocalciferol 50,000 Unit Capsule) 50,000 unit PO Sa@1000 [facility] Last Admin: 07/23/20 15:41 Dose: 50,000 unit Documented by: Fentanyl (Fentanyl 12 Mcg Patch) 12 mcg TD Q3D@1000 [facility] Last Admin: 07/24/20 08:43 Dose: 12 mcg Documented by: Glucagon (Glucagon 1 Mg/Ml Syringe) 1 mg IM .X1 PRN PRN Reason: Hypoglycemia Hydralazine HCl (Hydralazine 20 Mg/Ml Vial) 10 mg IV Q4H PRN PRN PRN Reason: SBP > 160 or DBP > 120 Sodium Chloride () 250 mls @ 15 mls/hr IV .[id number] PRN PRN Reason: Saline Flush Sodium Chloride () 250 mls @ 15 mls/hr IV .[id number] PRN PRN Reason: Additional IVPB Infusion Ceftriaxone Sodium (Rocephin) 1 gm in 50 mls @ 100 mls/hr IV Q24 [facility] Insulin Human Lispro (Insulin Lispro 100 Unit/Ml Insuln.Pen) 15 unit SC TIDCM [facility] Last Admin: 07/26/20 17:27 Dose: 15 u Documented by: Insulin Human Lispro (Insulin Lispro 100 Unit/Ml Insuln.Pen) 0 unit SC ACHS [facility]; Protocol Last Admin: 07/26/20 21:53 Dose: Not Given Documented by: Insulin Human NPH (Insulin Nph Human 100 Units/Ml Pen) 60 units SC DAILY@0730 [facility] Last Admin: 07/26/20 09:57 Dose: 30 u Documented by: Insulin Human NPH (Insulin Nph Human 100 Units/Ml Pen) 40 units SC QHS [facility] Last Admin: 07/26/20 21:57 Dose: Not Given Documented by: Ketorolac Tromethamine (Ketorolac 15 Mg/Ml Vial) 15 mg IV Q6H PRN PRN PRN Reason: Pain Score 1-10 Stop: 07/29/20 08:14 Lamotrigine (Lamotrigine 150 Mg Tablet) 300 mg PO BID [facility] Last Admin: 07/26/20 22:02 Dose: 300 mg Documented by: Loratadine (Loratadine 10 Mg Tablet) 10 mg PO DAILY [facility] Last Admin: 07/26/20 09:58 Dose: 10 mg Documented by: Ondansetron HCl (Ondansetron 4 Mg/2 Ml Vial) 4 mg IV Q8H PRN PRN PRN Reason: NAUSEA/VOMITING Last Admin: 07/23/20 00:56 Dose: 4 mg Documented by: Oxycodone HCl (Oxycodone 5 Mg Tablet) 5 mg PO Q4H PRN PRN PRN Reason: Pain Score 4-5 Oxycodone HCl (Oxycodone 5 Mg Tablet) 10 mg PO Q4H PRN PRN PRN Reason: Pain Score 6-10 Last Admin: 07/27/20 07:44 Dose: 10 mg Documented by: Pantoprazole Sodium (Pantoprazole Sodium 20 Mg Tablet) 20 mg PO BID [facility] Last Admin: 07/26/20 22:02 Dose: 20 mg Documented by: Paroxetine HCl (Paroxetine 10 Mg Tablet) 30 mg PO DAILY [facility] Last Admin: 07/26/20 09:59 Dose: 30 mg Documented by: Phenobarbital (Phenobarbital 32.4 Mg Tablet) 32.4 mg PO DAILY [facility] Last Admin: 07/26/20 10:02 Dose: 32.4 mg Documented by: Phenobarbital (Phenobarbital 32.4 Mg Tablet) 64.8 mg PO QPM [facility] Last Admin: 07/26/20 20:08 Dose: 64.8 mg Documented by: Senna/Docusate Sodium (Senna/Docusate Sodium 1 Tablet) 2 tablet PO BID PRN PRN PRN Reason: Constipation Last Admin: 07/23/20 06:03 Dose: 2 tablet Documented by: Sodium Chloride (0.9% Saline Lock 10 Ml Syringe) 10 - 40 ml IV UD PRN PRN Reason: SALINE FLUSH Last Admin: 07/26/20 22:38 Dose: 10 ml Documented by: Tizanidine HCl (Tizanidine Hcl 2 Mg Tablet) 2 mg PO Q8H PRN PRN PRN Reason: muscle pain/spasm Last Admin: 07/24/20 05:44 Dose: 2 mg Documented by: Topiramate (Topiramate 50 Mg Tablet) 50 mg PO BID [facility] Last Admin: 07/26/20 22:02 Dose: 50 mg Documented by: Medical Necessity - Tobacco Use Smoking Status: Never smoker Assessment/Plan All Active Problems (Last Reviewed 07/22/20 @ 21:[address] Ranjeet Richardson MD) Fall (Acute) Proximal humerus fracture (Acute) Shoulder fracture, right (Acute) Comminuted right humeral fracture (Acute) Recurrent falls (Acute) Debility (Acute) #Debility due to right humeral fracture * With upper extremity in a sling. * Orthopedic surgery on board. * On fentanyl patch and oxycodone as well as Tylenol and ketorolac. * PT OT on board. Fall precautions. * plan is for surgery today * Per the NSQIP surgical risk calculator, she has a 4.1% below average risk of serious complication and a 5.1% below average risk of any complication. Patient therefore cleared for surgery with moderate risk. #UTI: urine culture pending. on IV ceftriaxone #Type 2 diabetes mellitus: * On NPH insulin 60 units daily and 40 units nightly. * lantus held this morning o/a of low blood sugar. * Insulin sliding scale. * Checks AC at bedtime. #Hypertension: On amlodipine. IV hydralazine as needed #Hyperlipidemia: on statin #Asthma: Breathing treatments as needed #Morbid obesity: Complicates acute care, recovery and expected prognosis. DVT prophylaxis: [facility] Inpatient E&M: [id number] [facility] Hosp L2
--- NOTE | 2020-07-27 09:21 | CASEMGMT ---
Social Work Note Pt is scheduled for surgery today at 4:00pm. BRANDI placed a call to [facility] [place] [facility] and updated her that pt is going to have surgery today. [facility] will need updated PT/OT notes after surgery. BRANDI informed [facility] that this worker will send updated PT/OT notes tomorrow. BRANDI placed a call to Luh at [facility] and updated her pt is having surgery today, no discharge today, and BRANDI will need to fax updated PT/OT to [facility] tomorrow. BRANDI updated Luh that this worker is still waiting for [facility] approval, as they requested PT/OT after surgery. Luh states understanding. Plan: Pt is having surgery today, will fax PT/OT tomorrow to [facility] Melida Leo 3D TECHNOLOGIST, WINE MANAGER
[2020-07-27] MEDS: 0.9% Saline Lock 10 ML Syringe IV (10:25)
[2020-07-27] MEDS: Ceftriaxone 1 GM/50 ML BAG IV (10:26)
[2020-07-27 11:40] LABS: Bedside Glucose 187 mg/dL (70-110)
--- NOTE | 2020-07-27 15:42 | CHAPLAIN ---
Type of Pastoral Visit _x__ Initial Visit ___ Follow-up Visit ___ On-call Visit ___ General Patient Visit ___ Spiritual Assessment ___ Family Conference ___ Bereavement ___ Rapid Response ___ Code Blue ___ Other (describe below) Pastoral Care Referral From _x__ Patient ___ Family ___ Nurse ___ Physician ___ Hunting And Fishing Guide ___ Certified Pest Control Technician ___ Other (describe below) Sacrament/Intervention ___ Active listening ___ Anointing ___ Baptist ___ Bereavement ___ Communion ___ Ya exploration ___ ___ Life review _x__ Prayer ___ Reconciliation ___ Sacrament of Sick _x__ Supportive presence ___ Wedding ___ Other (describe below) Pastoral Comments
--- NOTE | 2020-07-27 16:52 | PCM.PN.BLA ---
Progress Note Patient remains significantly uncomfortable. She was reexamined today. She has been unable to leave the hospital secondary to pain and inability to take care of her self. Based on this we elected to proceed with the reverse shoulder replacement today. Patient understands risk and benefits of surgery which included but not limited to blood loss, DVTs, PEs, nervous damage, infection, the risk of anesthesia, dislocations not short of loss of life or limb. Patient demonstrates understanding wish to proceed. We will proceed this evening. She is currently n.p.o. [facility] Office: [facility] Vital Signs/Narrative: Vital Signs Temp Pulse Resp BP Pulse Ox 07/27/20 14:20 97.8 F 78 16 175/75 H 96
[2020-07-27] MEDS: Cefazolin 2 GM in 0.9% Normal Saline 100 ML IV (17:48)
[2020-07-27] MEDS: Epinephrine (1 mg/ml) 1 MG/ML VIAL (18:45)
[2020-07-27] MEDS: Ketorolac 30 MG/ML Syringe (18:45)
[2020-07-27] MEDS: morphine PF (epidural) 5 MG/10 ML Vial (18:45)
--- NOTE | 2020-07-27 19:28 | PCM.OPRPT ---
Report of Operation Date of Procedure: 07/27/20 Pre-Operative Diagnosis: Comminuted four-part right proximal humerus fracture Post-Operative Diagnosis: Comminuted four-part right proximal humerus fracture Anesthesiologist: Pedrito Beasley Special Medications: 2 g Ancef, 1 g TXA at incision, 1 g TXA closure, 10 mg Decadron, joint cocktail (5 mg Duramorph, 30 mL of 0.5% Ropivicaine, 1000 units of epinephrine, 30 mg of Toradol) Specimen's removed: Humeral head Estimated Blood Loss (mL): 200 Fluids Replaced: 1200 mL crystalloid Description of Procedure: Components used 1. Marques reunion glenoid baseplate 2. Marques reunion 32 mm, 2mm Glenosphere 3. Marques reunion 32mm, 4mm humeral liner 4. [place] reunion reverse TSA humeral adapter tray 4mm 5. Marques reunion humeral stem fracture press-fit 8mm size Brief history/Operative indications: 70 yo F with history of right four-part proximal humerus fracture. Patient failed conservative measures and was readmitted to the hospital after attempted outpatient care. After discussion of risk and benefits of reverse total shoulder replacement including but not limited to blood loss, DVTs, PEs, nerve vessel damage, infection, general risk of anesthesia including loss of life, instability and stiffness patient demonstrating understanding wish to proceed was able to sign informed consent. Medical clearance was obtained. Procedure: On the date of the procedure, patient's R upper extremity was marked in the preoperative area. Patient was taken back to the operating room where they were placed on the table in the supine position. Anesthesia assumed control of the C-spine and airway, then administered anesthetic. All bony prominences were identified well-padded, the head was secured and the patient was placed in the beachchair position at about 35? inclination. Anesthesia remained in control of the C-spine airway throughout the remainder of the procedure. Patient was then appropriately fastened to the table and the R upper extremity was prepped in a sterile fashion. The surgeons then scrubbed. Upon reentering the room, the R upper extremity was draped in a sterile fashion and the incision was marked out. Timeout was called, everyone agreed upon the side, the site, the procedure to be performed, patient identity and antibiotics given. Incision was taken down through skin and subcutaneous tissue, fat down to fascia. The stripe of the deltopectoral interval and cephalic vein were identified and blunt dissection was used to retract the deltoid. The cephalic vein was retracted laterally. Clavipectoral fascia was then incised and a cobra retractor was placed in the wound. The proximal one third of the pectoralis major insertion was released. At this point we carefully identified the fracture fragments tagging the lesser and greater tuberosity and then using an osteotome to remove the head from the joint. Once his humeral head was removed the humerus was retracted out of the way and the glenoid was exposed. After exposing the glenoid, the labrum and the remaining proximal biceps were debrided. At this time we are able to view the entire outer edge of the glenoid. A central pin was placed we sequentially reamed over this central pin to 32mm. Once this was completed the central screw was measured and found to be. The glenoid baseplate was screwed into place. Wound was closely irrigated out with normal saline we then drilled sequentially for 2 screws. Screws were placed superiorly and inferiorly and tightened down the screws. Once the screws were appropriately tightened into place the glenoid baseplate was compressed against the exposed subchondral bone. A 32mm glenosphere was impacted into place engaging the Wilder taper. Attention was then turned towards the humerus. The humerus was again externally rotated exposing the proximal portion of the humerus. Central canal finder was then used to open up the canal. We reamed to a 8mm reamer. We then broached to a 8mm stem. We trialed the 4mm liner, with the 4mm humeral baseplate. We obtained an adequate reduction at this time with a nice stable shoulder. Good internal rotation to the gluteus, forward elevation to 140?, external rotation to 20?. Trial components were then removed. The size 8 fracture stem was impacted into place. It gave us a good snug press-fit. Based on this we elected to try once more in the 4 and 4 were appropriate. Trials were dislocated. Final components were open. Final components were then assembled on the back table, trials were removed and the wound was copiously irrigated with normal saline after dislocating the shoulder. Once the final components were assembled they were impacted into place. Shoulder was then reduced and found to be stable with good range of motion. The tuberosity fragments were then repaired using #2 and #5 FiberWire. The wound was with chlorhexidine solution then copiously irrigated out with a 1 L normal saline lavage. The deltopectoral fascia was then closed using #1 Vicryl skin was closed using 2-0 Vicryl interrupted sutures and final skin closure was done with 3-0 Monocryl. Steri-Strips are placed for final skin closure. Sterile dressing was placed patient was then placed in a sling and awakened by anesthesia. Patient was then transferred to the PACU for recovery. Postoperative plan: Patient will be admitted to the hospital overnight. They will get physical therapy starting in 2 weeks with normal postoperative regimen. Patient will be placed on aspirin 325 mg daily for DVT prophylaxis for 2 weeks upon discharge from the hospital. The first postoperative appointment will be in 2 weeks for wound check and initiation of phase 1 physical therapy. During the course of the procedure the physician assistant track and field coach played a vital role. His intimate knowledge of my steps in the procedure aided in safe and expedient completion of the procedure. The PA played a vital rolls in positioning particularly in obtaining the appropriate beach chair position and securing the patient's body and head to the table. The PA was also vital in the retraction of soft tissues during the exposure and especially the glenoid work as this is a vital part of the procedure to prevent neurovascular damage. the PA was also vital and protecting soft tissues during times of bony cuts and reaming. He also played a vital role in closure with my direct supervision. The PA was also important during reduction and dislocation of the joint and trials intraoperatively. - Complications No intraoperative complications - Admit VTE Documentation VTE Present on Admission: No VTE Mechan Device Prophylaxis: SCD's VTE Pharm Prophylaxis ordered?: Yes
--- NOTE | 2020-07-27 20:20 | RAD_ITS ---
STUDY: X-RAY - RIGHT SHOULDER REASON FOR EXAM: Female, 70 years old. Fracture. POST OP RIGHT SHOULDER TECHNIQUE: 2 view(s) of the shoulder. COMPARISON: July 22, 2020 FINDINGS: There is reversal of shoulder replacement of the glenohumeral articulation. There is lucency of the proximal humerus with periprosthetic fracture. There is degenerative arthrosis of the acromioclavicular joint without inferior osseous spur formation. Normal acromion. There is demineralization of the humerus and visualized osseous structures. The soft tissue structures are unremarkable. Normal visualized pulmonary apex. RAD/Shoulder min 2 Views IMPRESSION: Reverse right total shoulder replacement. There is residual periprosthetic fracture. Electronically Signed: Flaco Baron MD at 21:33 EST , Service support ,
[2020-07-27 21:10] LABS: Bedside Glucose 279 mg/dL (70-110)
[2020-07-27] MEDS: Ondansetron 4 MG/2 ML Vial IV (21:28)
[2020-07-27 21:40] LABS: Bedside Glucose 243 mg/dL (70-110)
[2020-07-27] MEDS: lamoTRIgine 150 MG Tablet 300 MG PO (22:26)
[2020-07-27] MEDS: Topiramate 50 MG Tablet PO (22:26)
[2020-07-27] MEDS: Atorvastatin Calcium 20 MG Tablet PO (22:26)
[2020-07-27] MEDS: Pantoprazole Sodium 20 MG Tablet PO (22:26)
[2020-07-27] MEDS: Phenobarbital 32.4 MG Tablet 64.8 MG PO (22:33)
[2020-07-27] MEDS: Insulin Lispro 100 UNIT/ML INSULN.PEN SC (22:35)
[2020-07-27] MEDS: Insulin NPH Human 100 UNITS/ML PEN 40 UNITS SC (22:37)
[2020-07-28] VITALS (8 sets, daily range): BP systolic 126–176; BP diastolic 53–76; PULSE 80–96; RESP 16–20; TEMP 36.4–36.9; O2SAT 94–98; BMI 44.8
--- NOTE | 2020-07-28 02:00 | NURSING ---
attempted to stand pt, pt dizzy and refusing at this time.
[2020-07-28] MEDS: proCHLORPERazine 10 MG/2 ML Vial 5 MG IV ×2 (03:17→09:16)
[2020-07-28] MEDS: Ondansetron 4 MG/2 ML Vial IV (05:43)
--- NOTE | 2020-07-28 06:50 | NURSING ---
pt voided 150cc, bladder scanned for >999 straight cath for 1150cc
[2020-07-28 07:30] LABS: Absolute Lymphocyte Count 2.07 X10^3/uL (0.83-4.51); Absolute Neutrophil Count 7.8 X10^3/uL (2.0-7.7); Basophil# 0.12 X10^3/uL; Basophil% 1.1 % (0-1); Eosinophil# 0.12 X10^3/uL; Eosinophils% 1.1 % (0-5); Hematocrit 33.8 % (37-47); Hemoglobin 11.2 g/dL (12.0-15.0); Lymphocyte # 2.07 X10^3/ul (4.0); Lymphocyte % 18.9 % (19-41); Mean Corp Hgb Conc 33.1 g/dL (32-36); Mean Corpuscular Volume 90.6 fL (81-99); Mean Platelet Vol. 10.3 fl (6.2-12.0); Monocyte# 0.76 X10^3/uL; Monocyte% 6.9 % (0-10); NRBC Flagged by Analyzer 0 % (0-5); Neutrophil # 7.84 X10^3/uL (2.7-7.7); Neutrophil % 71.5 % (47-70); Platelet Count 493 K/mm3 (150-450); RBC Distribution Width CV 12.7 % (11.6-14.6); RBC Distribution Width SD 41.6 fl (35.1-43.9); Red Blood Count 3.73 M/mm3 (4.2-5.4)
[2020-07-28] MEDS: Senna/Docusate Sodium 1 Tablet 2 TABLET PO (07:57)
[2020-07-28] MEDS: tiZANidine HCl 2 MG Tablet PO ×2 (07:57→17:18)
[2020-07-28] MEDS: Ketorolac 15 MG/ML Vial IV (07:57)
[2020-07-28] MEDS: lamoTRIgine 150 MG Tablet 300 MG PO ×2 (07:58→21:57)
[2020-07-28] MEDS: amLODIPine 10 MG Tablet PO (07:59)
[2020-07-28] MEDS: Pantoprazole Sodium 20 MG Tablet PO ×2 (07:59→21:58)
[2020-07-28] MEDS: PARoxetine 10 MG Tablet 30 MG PO (08:00)
[2020-07-28] MEDS: Loratadine 10 MG Tablet PO (08:00)
[2020-07-28] MEDS: Topiramate 50 MG Tablet PO ×2 (08:00→21:59)
[2020-07-28] MEDS: Phenobarbital 32.4 MG Tablet PO (08:02)
[2020-07-28] MEDS: Aspirin E.C. 325 MG Tablet PO (08:02)
[2020-07-28] MEDS: 0.9% Saline Lock 10 ML Syringe IV ×5 (08:03→23:31)
[2020-07-28 08:05] LABS: Anion Gap 8 (5-15); BUN 18 mg/dL (7-18); BUN/Creat Ratio 20.1 RATIO (10-20); Calcium,Total 8.6 mg/dL (8.5-10.1); Chloride 107 mmol/L (98-107); EST Glomerular Filtration Rate 66 mL/min (>60); Est Glom Filt Rate - Afr Amer 80 mL/min (>60); Estimated Creatinine Clearance 50.23 ml/min; Glucose 205 mg/dL (74-106); Sodium Level 139 mmol/L (136-145)
--- NOTE | 2020-07-28 08:57 | PCM.PN.ORT ---
Patient Problems: Active and Suspected Problems (Last Reviewed 07/22/20 @ 21:[address] Ranjeet Richardson MD) Shoulder fracture, right (Acute) Comminuted right humeral fracture (Acute) Recurrent falls (Acute) Debility (Acute) Subjective: The patient was sitting in bedside chair upon examination. Patient denies any chest pain, shortness of breath, dizziness, lightheadedness, nausea or vomiting, or calf pain. Pain is controlled on medications. No adverse overnight events. Patient overall is doing well. She has some numbness in the right small finger. She does have pain associated in the right shoulder but is controlled on medications. She is currently in an UltraSling. Patient's plan is to go to group home facility [facility]. Objective: Vital signs stable, afebrile Dressing is clean, dry, intact Currently in UltraSling Sensation intact to axillary, radial, median, and ulnar distribution Motor intact to AIN, PIN, and ulnar nerve - Physical Exam Vitals/I&O's: Vital Signs Temp Pulse Resp BP Pulse Ox 98.0 F 90 18 143/53 H 95 07/28/20 05:53 07/28/20 05:53 07/28/20 05:53 07/28/20 05:53 07/28/20 05:53 Oxygen Delivery Method Room Air Weight: 118.4 kg Body Mass Index (BMI) 44.1 Finger Stick Blood Glucose 198 Intake and Output for Last 24 Hours 07/26/20 07/27/20 07/28/20 23:59 23:59 23:59 Intake Total 890 / 890 1310 / 1610 1500 / 1500 Output Total 100 / 100 1775 / 1775 Balance 890 / 890 1210 / 1510 -275 / -275 General: Alert, Oriented x3, Cooperative, No apparent distress Microbiology Past 72 Hours 07/25/20 21:45 Interface Orders Urine Culture - Final Enterococcus faecalis 07/26/20 16:35 Mucosa - Nasopharyngeal SARS-CoV-2 Antigen (Rapid) - Final Laboratory Results 07/27/20 11:34: POC Glucose 187 H 07/27/20 21:02: POC Glucose 279 H 07/27/20 21:31: POC Glucose 243 H 07/28/20 07:12: WBC 11.0, RBC 3.73 L, Hgb 11.2 L, Hct 33.8 L, MCV 90.6, MCH 30.0, MCHC 33.1, RDW Std Deviation 41.6, RDW Coeff of Linda 12.7, Plt Count 493 H, MPV 10.3, Immature Gran % (Auto) 0.500, Neut % (Auto) 71.5 H, Lymph % (Auto) 18.9 L, Prentiss % (Auto) 6.9, Eos % (Auto) 1.1, Baso % (Auto) 1.1 H, Absolute Neuts (auto) 7.8 H, Absolute Lymphs (auto) 2.07, Nucleated RBC % 0 07/28/20 07:12: Sodium 139, Potassium 4.0, Chloride 107, Carbon Dioxide 24.0, Anion Gap 8, BUN 18, Creatinine 0.90, Estim Creat Clear Calc 50.23, Est GFR (MDRD) Af Amer 80, Est GFR (MDRD) Non-Af 66, BUN/Creatinine Ratio 20.1 H, Glucose 205 H, Calcium 8.6 Current Medications Acetaminophen (Acetaminophen 500 Mg Tablet) 1,000 mg PO Q8 [facility] Last Admin: 07/28/20 05:48 Dose: Not Given Documented by: Amlodipine Besylate (Amlodipine 10 Mg Tablet) 10 mg PO DAILY [facility] Last Admin: 07/28/20 07:59 Dose: 10 mg Documented by: Aspirin (Aspirin E.C. 325 Mg Tablet) 325 mg PO DAILY@0800 [facility] Last Admin: 07/28/20 08:02 Dose: 325 mg Documented by: Atorvastatin Calcium (Atorvastatin Calcium 20 Mg Tablet) 20 mg PO QHS [facility] Last Admin: 07/27/20 22:26 Dose: 20 mg Documented by: Cholecalciferol (Cholecalciferol (Vit D3) 1,000 Unit (25mcg)) 1,000 unit PO DAILY [facility] Last Admin: 07/28/20 07:58 Dose: 1,000 unit Documented by: Cyclobenzaprine HCl (Cyclobenzaprine Hcl 5 Mg Tablet) 5 mg PO TID PRN PRN PRN Reason: pain/muscle spasms Last Admin: 07/25/20 06:04 Dose: 5 mg Documented by: Dextrose (Dextrose 50%-Water 25 Gm/50 Ml Disp.Syrin) 0 gm IV X1 PRN; Protocol PRN Reason: Hypoglycemia Ergocalciferol (Ergocalciferol 50,000 Unit Capsule) 50,000 unit PO Sa@1000 [facility] Last Admin: 07/23/20 15:41 Dose: 50,000 unit Documented by: Fentanyl (Fentanyl 12 Mcg Patch) 12 mcg TD Q3D@1000 [facility] Last Admin: 07/27/20 10:26 Dose: 12 mcg Documented by: Glucagon (Glucagon 1 Mg/Ml Syringe) 1 mg IM .X1 PRN PRN Reason: Hypoglycemia Hydralazine HCl (Hydralazine 20 Mg/Ml Vial) 10 mg IV Q4H PRN PRN PRN Reason: SBP > 160 or DBP > 120 Sodium Chloride () 250 mls @ 15 mls/hr IV .[id number] PRN PRN Reason: Saline Flush Sodium Chloride () 250 mls @ 15 mls/hr IV .[id number] PRN PRN Reason: Additional IVPB Infusion Ceftriaxone Sodium (Rocephin) 1 gm in 50 mls @ 100 mls/hr IV Q24 [facility] Last Infusion: 07/27/20 11:29 Dose: Infused Documented by: Insulin Human Lispro (Insulin Lispro 100 Unit/Ml Insuln.Pen) 15 unit SC TIDCM [facility] Last Admin: 07/27/20 22:08 Dose: Not Given Documented by: Insulin Human Lispro (Insulin Lispro 100 Unit/Ml Insuln.Pen) 0 unit SC [facility]; Protocol Last Admin: 07/27/20 22:35 Dose: 4 u Documented by: Insulin Human NPH (Insulin Nph Human 100 Units/Ml Pen) 60 units SC DAILY@0730 [facility] Last Admin: 07/27/20 07:53 Dose: Not Given Documented by: Insulin Human NPH (Insulin Nph Human 100 Units/Ml Pen) 40 units SC QHS [facility] Last Admin: 07/27/20 22:37 Dose: 40 u Documented by: Ketorolac Tromethamine (Ketorolac 15 Mg/Ml Vial) 15 mg IV Q6H PRN PRN PRN Reason: Pain Score 1-10 Stop: 07/29/20 08:14 Last Admin: 07/28/20 07:57 Dose: 15 mg Documented by: Lamotrigine (Lamotrigine 150 Mg Tablet) 300 mg PO BID [facility] Last Admin: 07/28/20 07:58 Dose: 300 mg Documented by: Loratadine (Loratadine 10 Mg Tablet) 10 mg PO DAILY [facility] Last Admin: 07/28/20 08:00 Dose: 10 mg Documented by: Ondansetron HCl (Ondansetron 4 Mg/2 Ml Vial) 4 mg IV Q8H PRN PRN PRN Reason: NAUSEA/VOMITING Last Admin: 07/28/20 05:43 Dose: 4 mg Documented by: Oxycodone HCl (Oxycodone 5 Mg Tablet) 5 mg PO Q4H PRN PRN PRN Reason: Pain Score 4-5 Oxycodone HCl (Oxycodone 5 Mg Tablet) 10 mg PO Q4H PRN PRN PRN Reason: Pain Score 6-10 Last Admin: 07/27/20 22:25 Dose: 10 mg Documented by: Pantoprazole Sodium (Pantoprazole Sodium 20 Mg Tablet) 20 mg PO BID [facility] Last Admin: 07/28/20 07:59 Dose: 20 mg Documented by: Paroxetine HCl (Paroxetine 10 Mg Tablet) 30 mg PO DAILY [facility] Last Admin: 07/28/20 08:00 Dose: 30 mg Documented by: Phenobarbital (Phenobarbital 32.4 Mg Tablet) 32.4 mg PO DAILY [facility] Last Admin: 07/28/20 08:02 Dose: 32.4 mg Documented by: Phenobarbital (Phenobarbital 32.4 Mg Tablet) 64.8 mg PO QPM [facility] Last Admin: 07/27/20 22:33 Dose: 64.8 mg Documented by: Prochlorperazine Edisylate (Prochlorperazine 10 Mg/2 Ml Vial) 5 mg IV Q6H PRN PRN PRN Reason: NAUSEA/VOMITING Last Admin: 07/28/20 03:17 Dose: 5 mg Documented by: Senna/Docusate Sodium (Senna/Docusate Sodium 1 Tablet) 2 tablet PO BID PRN PRN PRN Reason: Constipation Last Admin: 07/28/20 07:57 Dose: 2 tablet Documented by: Sodium Chloride (0.9% Saline Lock 10 Ml Syringe) 10 - 40 ml IV UD PRN PRN Reason: SALINE FLUSH Last Admin: 07/28/20 08:03 Dose: 10 ml Documented by: Tizanidine HCl (Tizanidine Hcl 2 Mg Tablet) 2 mg PO Q8H PRN PRN PRN Reason: muscle pain/spasm Last Admin: 07/28/20 07:57 Dose: 2 mg Documented by: Topiramate (Topiramate 50 Mg Tablet) 50 mg PO BID [facility] Last Admin: 07/28/20 08:00 Dose: 50 mg Documented by: Medical Necessity - Tobacco Use Smoking Status: Never smoker Assessment/Plan All Active Problems (Last Reviewed 07/22/20 @ 21:[address] Ranjeet Richardson MD) Fall (Acute) Proximal humerus fracture (Acute) Shoulder fracture, right (Acute) Comminuted right humeral fracture (Acute) Recurrent falls (Acute) Debility (Acute) 1. S/P right reverse total shoulder arthroplasty secondary to comminuted four-part right proximal humerus fracture POD #1 2. Continue Pain Medications: Continue pain medications per medicine 3. DVT Prophylaxis: Recommend aspirin 325 mg once daily for 2 weeks postoperatively 4. PT/OT: Continue with UltraSling at all times except to come out for range of motion exercises of the elbow and pendulum exercise 3 times daily. No range of motion of the postoperative shoulder until outpatient physical therapy begins. Formal physical therapy will begin 2 weeks postoperatively after follow-up with [facility] with x-rays and incision check. 5. H & H: 11.2/33.8, asymptomatic. Postoperative anemia secondary to acute blood loss from surgery without any intra operative complications. 6. Encouraged Incentive Spirometry 7. Continue postoperative medical management per medicine 8. Disposition: Orthopedically stable, at this point we will sign off of patient and she may be discharged once medically stable and pre-CERT has been obtained for group home facility. Patient will require a 2-week follow-up with [facility] with x-rays and incision check. Physical therapy for 2 weeks postoperatively will only consist of elbow range of motion and pendulum exercises. No range of motion of the right shoulder until we have seen patient with x-ray follow-up. She will continue with pain medications per medicine. Recommend aspirin 325 mg once daily for 2 weeks postoperatively for DVT prophylaxis. Patient will continue with the dressing for 5 days postoperatively. She can shower with the dressing as long as it is intact to the skin. 5 days postoperatively she can remove the dressing and shower getting the incision wet with only soap and water. No submerging the incision underwater for 6 weeks postoperatively. Case was discussed with case management. Okay for discharge from an orthopedic standpoint. Please contact orthopedics with any questions or concerns.
--- NOTE | 2020-07-28 09:04 | DCINST_ITS ---
Discharge Activity: May Not Drive May shower in (days): 1 - Dressing must be intact the skin. Turn dressing away from water Ice area for (Minutes): 20 - Every 1-2 hours while awake Weight Bearing Status: No weight bearing - Right upper extremity. Continue with UltraSling at all times Call your doctor if your incision/area has: Continuous Slow Oozing, Sudden Increased Bleeding, Increased Pain/ Swelling, Increased Redness, Foul Smelling Discharge Call your doctor if you observe: Fever of 101 or Higher, Coldness, Increased Pain, Numbness or Tingling, Change in Color Remove Dressing in (days):: 4 - Okay for dressing removal on August 01, 2020. Additional Instructions: Physical therapy/Occupational Therapy: Continue with UltraSling at all times except to come out for range of motion exercises of the elbow and pendulum exercise 3 times daily. No range of motion of the postoperative shoulder until assessed at [facility] at 2-week follow-up. Formal physical therapy will begin 2 weeks postoperatively after follow-up with [facility] with x-rays and incision check. Do not proceed with any range of motion of the right shoulder until cleared by orthopedics. Patient will be nonweightbearing on the right upper extremity. DVT prophylaxis: Recommend 325 mg aspirin once daily for 2 weeks postoperatively Allergies/Adverse Reactions: Allergies ciprofloxacin Allergy (Verified 07/22/20 15:23) Unknown hydrochlorothiazide Allergy (Verified 07/22/20 15:23) Unknown pentazocine [From [place]] Allergy (Verified 07/22/20 15:23) Unknown Medications to take at Discharge Omeprazole [Prilosec] 20 mg PO BID 12/19/13 Simvastatin [Zocor] 40 mg PO QHS 12/19/13 Topiramate [Topamax] 50 mg PO BID 12/19/13 Albuterol Aerosols [Ventolin Aerosols] 2.5 mg INHALATION Q4H PRN PRN 05/09/14 Glucosam/Kiran-Msm1/C/Cricket/Bosw [Osteo Bi-Flex Caplet] 1 each PO BID 05/09/14 Insulin NPH Human [Humulin N Pen] 60 units SC DAILY@0730 05/09/14 Insulin Regular, Human [Novolin R] 20 unit SC BIDAC 05/09/14 Aspirin [Aspirin, Baby] 81 mg PO DAILY@0800 08/26/18 Budesonide/Formoterol 160/4.5 [Symbicort 160/4.5 Mcg Inhaler (SP)] 1 puff INHALATION BID PRN PRN 08/26/18 Paroxetine HCl 30 mg PO DAILY 08/26/18 Amlodipine [Norvasc] 10 mg PO DAILY #0 08/28/18 Tizanidine HCl [Zanaflex] 2 mg PO Q8H PRN PRN #20 tab 08/28/18 Insulin NPH Human [Humulin N Pen] 40 units SC QHS 07/10/20 cycloBENZAPRine HCl [Cyclobenzaprine HCl] 5 mg PO TID PRN PRN tab 07/15/20 Cetirizine HCl [Zyrtec] 10 mg PO DAILY 07/22/20 Cholecalciferol (Vitamin D3) [Vitamin D3] 1,000 unit PO DAILY 07/22/20 Lamotrigine [Lamictal] 300 mg PO BID 07/22/20 Phenobarbital 30 mg PO DAILY 07/22/20 Phenobarbital 60 mg PO DAILY 07/22/20 Primary Care Physician: Yovanny Ruano MD [Primary Care Provider] - Angel Richard MD [STAFF PHYSICIAN] - Test Results: Test results from this visit will be discussed in further detail at your follow- up appointment, if applicable. Please Follow Up With: Ramos Mills PA-C When: please schedule follow up week of August 08, 2020
[2020-07-28] MEDS: Ceftriaxone 1 GM/50 ML BAG IV (09:16)
[2020-07-28] MEDS: Insulin NPH Human 100 UNITS/ML PEN 60 UNITS SC (09:22)
[2020-07-28 09:30] LABS: Bedside Glucose 191 mg/dL (70-110)
[2020-07-28] MEDS: oxyCODONE 5 MG Tablet 10 MG PO (10:38)
[2020-07-28 11:45] LABS: Bedside Glucose 246 mg/dL (70-110)
--- NOTE | 2020-07-28 11:54 | CASEMGMT ---
Addendum entered by Melida Leo 07/28/20 14:42: BRANDI placed a call to Luh at [facility] and left her a message that [facility] approval is still pending. BRANDI updated Luh that pt is medically ready for discharge once [facility] appro[facility]. BRANDI asked Luh if she will need an updated COVID test as pt's COVID test was on the 15th. BRANDI waiting for call back from Luh. Addendum entered by Melida Leo 07/28/20 14:12: BRANDI placed a call to [facility] BRANDI. Bin confirms she received updated PT/OT and she [facility] them to the [facility] to review. Bin states she hasn't heard anything yet, will call this worker when she does. Original Note: Social Work Note BRANDI faxed updated PT/OT to [facility] BRANDI. Pt is medically ready for discharge once [facility] approval is obtained. BRANDI wrote this on fax coversheet. Plan: [facility] pending [facility] approval Melida Leo POLICE SHIFT COMMANDER, DEMENTIA PROGRAM DIRECTOR
[2020-07-28] MEDS: Insulin Lispro 100 UNIT/ML INSULN.PEN 15 UNIT SC ×2 (12:39→17:14)
[2020-07-28] MEDS: Insulin Lispro 100 UNIT/ML INSULN.PEN SC (12:39)
[2020-07-28] MEDS: Acetaminophen 500 MG Tablet 1000 MG PO ×2 (13:55→21:59)
--- NOTE | 2020-07-28 14:38 | PN_ITS ---
Patient Problems: Active and Suspected Problems (Last Reviewed 07/22/20 @ 21:[address] Ranjeet Richardson MD) Shoulder fracture, right (Acute) Comminuted right humeral fracture (Acute) Recurrent falls (Acute) Debility (Acute) Subjective: Patient seen examined. She had left shoulder surgery yesterday. Today is POD 1. She still complains of pain in her right shoulder. She was working with physical therapy. Review of systems is otherwise negative. Vitals/I&O's: Vital Signs Temp Pulse Resp BP Pulse Ox 97.5 F L 81 20 H 126/54 H 95 07/28/20 10:33 07/28/20 10:33 07/28/20 10:33 07/28/20 10:33 07/28/20 10:33 Oxygen Flow Rate (L/min) 3 Oxygen Delivery Method Room Air Weight: 261 lb 0.437 oz Body Mass Index (BMI) 44.1 Finger Stick Blood Glucose 198 Intake and Output for Last 24 Hours 07/26/20 07/27/20 07/28/20 23:59 23:59 23:59 Intake Total 890 / 890 1310 / 1610 1790 / 1790 Output Total 100 / 100 1775 / 1775 Balance 890 / 890 1210 / 1510 General: Alert, Oriented x3, Cooperative, - morbid obesity HEENT: Atraumatic, PERRLA, EOMI, Normocephalic Oral: Dry Mucosa Neck: Supple, No JVD, Negative Carotid Bruits Lungs: Clear to auscultation, Normal air movement, No rhonchi, No wheeze, No rales Cardiovascular: Regular rate, Regular Rhythm, Normal S1, Normal S2, No murmurs Abdomen: Bowel Sounds Present, Soft, Non Tender Extremities: No clubbing, No cyanosis, No edema, Capillary Refill Less than 3 Seconds Skin: No rashes, No breakdown Musculoskeletal: - - RUE in a sling. dressing over right shoulder Lymphatic: No Cervical, Supraclavicular, or Inguinal Adenopathy Neurological: Cranial nerves II-XII grossly intact, Neuro grossly intact, Motor Exam 5/5 strength throughout Psych/Mental Status: - - Alert and oriented to time, place, person, mood and affect Microbiology Past 72 Hours 07/25/20 21:45 Interface Orders Urine Culture - Final Enterococcus faecalis 07/26/20 16:35 Mucosa - Nasopharyngeal SARS-CoV-2 Antigen (Rapid) - Final Laboratory Results 07/27/20 21:02: POC Glucose 279 H 07/27/20 21:31: POC Glucose 243 H 07/28/20 07:12: WBC 11.0, RBC 3.73 L, Hgb 11.2 L, Hct 33.8 L, MCV 90.6, MCH 30.0, MCHC 33.1, RDW Std Deviation 41.6, RDW Coeff of Linda 12.7, Plt Count 493 H, MPV 10.3, Immature Gran % (Auto) 0.500, Neut % (Auto) 71.5 H, Lymph % (Auto) 18.9 L, [place] % (Auto) 6.9, Eos % (Auto) 1.1, Baso % (Auto) 1.1 H, Absolute Neuts (auto) 7.8 H, Absolute Lymphs (auto) 2.07, Nucleated RBC % 0 07/28/20 07:12: Sodium 139, Potassium 4.0, Chloride 107, Carbon Dioxide 24.0, Anion Gap 8, BUN 18, Creatinine 0.90, Estim Creat Clear Calc 50.23, Est GFR (MDRD) Af Amer 80, Est GFR (MDRD) Non-Af 66, BUN/Creatinine Ratio 20.1 H, Glucose 205 H, Calcium 8.6 07/28/20 07:30: POC Glucose 191 H 07/28/20 11:35: POC Glucose 246 H Diagnostic Data Hand X-Ray 07/22/20 15:53 IMPRESSION: No acute fracture or dislocation. Electronically Signed: Deep Echols MD at 16:29 EST Tel , Service support , Ribs w/Chest X-Ray 07/22/20 15:53 IMPRESSION: RIBS: Acute or chronic fracture the anterolateral right seventh rib. CHEST: Normal x-ray examination of the chest. Electronically Signed: Deep Echols MD at 16:33 EST Tel , Service support , Shoulder X-Ray 07/27/20 20:20 IMPRESSION: Reverse right total shoulder replacement. There is residual periprosthetic fracture. Electronically Signed: Flaco Baron MD at 21:33 EST , Service support , Current Medications Acetaminophen (Acetaminophen 500 Mg Tablet) 1,000 mg PO Q8 [facility] Last Admin: 07/28/20 13:55 Dose: 1,000 mg Documented by: Amlodipine Besylate (Amlodipine 10 Mg Tablet) 10 mg PO DAILY [facility] Last Admin: 07/28/20 07:59 Dose: 10 mg Documented by: Aspirin (Aspirin E.C. 325 Mg Tablet) 325 mg PO DAILY@0800 [facility] Last Admin: 07/28/20 08:02 Dose: 325 mg Documented by: Atorvastatin Calcium (Atorvastatin Calcium 20 Mg Tablet) 20 mg PO QHS [facility] Last Admin: 07/27/20 22:26 Dose: 20 mg Documented by: Cholecalciferol (Cholecalciferol (Vit D3) 1,000 Unit (25mcg)) 1,000 unit PO DAILY [facility] Last Admin: 07/28/20 07:58 Dose: 1,000 unit Documented by: Cyclobenzaprine HCl (Cyclobenzaprine Hcl 5 Mg Tablet) 5 mg PO TID PRN PRN PRN Reason: pain/muscle spasms Last Admin: 07/25/20 06:04 Dose: 5 mg Documented by: Dextrose (Dextrose 50%-Water 25 Gm/50 Ml Disp.Syrin) 0 gm IV X1 PRN; Protocol PRN Reason: Hypoglycemia Ergocalciferol (Ergocalciferol 50,000 Unit Capsule) 50,000 unit PO Sa@1000 [facility] Last Admin: 07/23/20 15:41 Dose: 50,000 unit Documented by: Fentanyl (Fentanyl 12 Mcg Patch) 12 mcg TD Q3D@1000 [facility] Last Admin: 07/27/20 10:26 Dose: 12 mcg Documented by: Glucagon (Glucagon 1 Mg/Ml Syringe) 1 mg IM .X1 PRN PRN Reason: Hypoglycemia Hydralazine HCl (Hydralazine 20 Mg/Ml Vial) 10 mg IV Q4H PRN PRN PRN Reason: SBP > 160 or DBP > 120 Sodium Chloride () 250 mls @ 15 mls/hr IV .[id number] PRN PRN Reason: Saline Flush Sodium Chloride () 250 mls @ 15 mls/hr IV .[id number] PRN PRN Reason: Additional IVPB Infusion Ceftriaxone Sodium (Rocephin) 1 gm in 50 mls @ 100 mls/hr IV Q24 [facility] Last Infusion: 07/28/20 10:30 Dose: Infused Documented by: Insulin Human Lispro (Insulin Lispro 100 Unit/Ml Insuln.Pen) 15 unit SC TIDCM [facility] Last Admin: 07/28/20 12:39 Dose: 15 u Documented by: Insulin Human Lispro (Insulin Lispro 100 Unit/Ml Insuln.Pen) 0 unit SC ACHS [facility]; Protocol Last Admin: 07/28/20 12:39 Dose: 4 u Documented by: Insulin Human NPH (Insulin Nph Human 100 Units/Ml Pen) 60 units SC DAILY@0730 [facility] Last Admin: 07/28/20 09:22 Dose: 60 u Documented by: Insulin Human NPH (Insulin Nph Human 100 Units/Ml Pen) 40 units SC QHS [facility] Last Admin: 07/27/20 22:37 Dose: 40 u Documented by: Ketorolac Tromethamine (Ketorolac 15 Mg/Ml Vial) 15 mg IV Q6H PRN PRN PRN Reason: Pain Score 1-10 Stop: 07/29/20 08:14 Last Admin: 07/28/20 07:57 Dose: 15 mg Documented by: Lamotrigine (Lamotrigine 150 Mg Tablet) 300 mg PO BID [facility] Last Admin: 07/28/20 07:58 Dose: 300 mg Documented by: Loratadine (Loratadine 10 Mg Tablet) 10 mg PO DAILY [facility] Last Admin: 07/28/20 08:00 Dose: 10 mg Documented by: Ondansetron HCl (Ondansetron 4 Mg/2 Ml Vial) 4 mg IV Q8H PRN PRN PRN Reason: NAUSEA/VOMITING Last Admin: 07/28/20 05:43 Dose: 4 mg Documented by: Oxycodone HCl (Oxycodone 5 Mg Tablet) 5 mg PO Q4H PRN PRN PRN Reason: Pain Score 4-5 Oxycodone HCl (Oxycodone 5 Mg Tablet) 10 mg PO Q4H PRN PRN PRN Reason: Pain Score 6-10 Last Admin: 07/28/20 10:38 Dose: 10 mg Documented by: Pantoprazole Sodium (Pantoprazole Sodium 20 Mg Tablet) 20 mg PO BID [facility] Last Admin: 07/28/20 07:59 Dose: 20 mg Documented by: Paroxetine HCl (Paroxetine 10 Mg Tablet) 30 mg PO DAILY [facility] Last Admin: 07/28/20 08:00 Dose: 30 mg Documented by: Phenobarbital (Phenobarbital 32.4 Mg Tablet) 32.4 mg PO DAILY [facility] Last Admin: 07/28/20 08:02 Dose: 32.4 mg Documented by: Phenobarbital (Phenobarbital 32.4 Mg Tablet) 64.8 mg PO QPM [facility] Last Admin: 07/27/20 22:33 Dose: 64.8 mg Documented by: Prochlorperazine Edisylate (Prochlorperazine 10 Mg/2 Ml Vial) 5 mg IV Q6H PRN PRN PRN Reason: NAUSEA/VOMITING Last Admin: 07/28/20 09:16 Dose: 5 mg Documented by: Senna/Docusate Sodium (Senna/Docusate Sodium 1 Tablet) 2 tablet PO BID PRN PRN PRN Reason: Constipation Last Admin: 07/28/20 07:57 Dose: 2 tablet Documented by: Sodium Chloride (0.9% Saline Lock 10 Ml Syringe) 10 - 40 ml IV UD PRN PRN Reason: SALINE FLUSH Last Admin: 07/28/20 09:16 Dose: 10 ml Documented by: Tizanidine HCl (Tizanidine Hcl 2 Mg Tablet) 2 mg PO Q8H PRN PRN PRN Reason: muscle pain/spasm Last Admin: 07/28/20 07:57 Dose: 2 mg Documented by: Topiramate (Topiramate 50 Mg Tablet) 50 mg PO BID [facility] Last Admin: 07/28/20 08:00 Dose: 50 mg Documented by: Medical Necessity - Tobacco Use Smoking Status: Never smoker Assessment/Plan All Active Problems (Last Reviewed 07/22/20 @ 21:[address] Ranjeet Richardson MD) Fall (Acute) Proximal humerus fracture (Acute) Shoulder fracture, right (Acute) Comminuted right humeral fracture (Acute) Recurrent falls (Acute) Debility (Acute) #Right humeral fracture s/p reverse right total shoulder replacement * today is POD 1 * PT/OT on board. fall precautions * on fentanyl patch, oxycodone and tylenol as well as ketorolac * PT/OT on board * fall precautions * #UTI: urine cultured Enterococcus faecalis. on IV ceftriaxone. Will switch to IV vancomycin based on sensitivities. #Type 2 diabetes mellitus: * On NPH insulin 60 units daily and 40 units nightly. * * Insulin sliding scale. * Checks AC at bedtime. #Hypertension: On amlodipine. IV hydralazine as needed #Hyperlipidemia: on statin #Asthma: Breathing treatments as needed #Morbid obesity: Complicates acute care, recovery and expected prognosis. DVT prophylaxis: aspirin 325mg daily for 2 weeks, per orthopedics. Disposition: awaiting placement, pending [facility]. Inpatient E&M: 41158 Subs Hosp L2
[2020-07-28] MEDS: oxyCODONE 5 MG Tablet PO ×2 (15:23→17:18)
[2020-07-28 16:46] LABS: Bedside Glucose 134 mg/dL (70-110)
[2020-07-28] MEDS: AMOXICILLIN 500 MG CAPSULE PO (21:56)
[2020-07-28] MEDS: Phenobarbital 32.4 MG Tablet 64.8 MG PO (21:56)
[2020-07-28] MEDS: Tamsulosin HCl 0.4 MG Capsule PO (21:57)
[2020-07-28] MEDS: Atorvastatin Calcium 20 MG Tablet PO (21:58)
[2020-07-28] MEDS: Insulin NPH Human 100 UNITS/ML PEN 40 UNITS SC (22:18)
[2020-07-28] MEDS: hydrALAZINE 20 MG/ML Vial 10 MG IV (23:32)
--- NOTE | 2020-07-28 23:38 | NURSING ---
Addendum entered by Frank Post 07/29/20 00:10: pt voiding approx 100cc each time pt voids; however is still retaining urine Original Note: pt bladder scanned at this time d/t frequency and urgency of urination. bladder scanned for over 999ml at this time
--- NOTE | 2020-07-29 00:05 | NURSING ---
Addendum entered by Frank Post 07/29/20 00:11: purewick in place at this time. Original Note: this RN noticed there is an order to straight cath for urinary retention. pt is refusing to be straight cathed at this time, stating it will just give me another infection, I have the right to refuse pt is wanting a purwick instead, This RN educated pt that a purwick is not effective in assisting the bladder in emptying, and that a straight cath is effective. pt acknowledges, and is still refusing.
[2020-07-29 00:46] LABS: Bedside Glucose 140 mg/dL (70-110)
[2020-07-29 01:23] VITALS: BMI 44.8
[2020-07-29 02:22] VITALS: BP 153/63; PULSE 100; RESP 22; TEMP 37.1; O2SAT 96
[2020-07-29] MEDS: oxyCODONE 5 MG Tablet 10 MG PO ×4 (02:30→20:18)
[2020-07-29 02:35] VITALS: RESP 20
[2020-07-29] MEDS: AMOXICILLIN 500 MG CAPSULE PO ×3 (05:27→20:21)
[2020-07-29] MEDS: Acetaminophen 500 MG Tablet 1000 MG PO ×2 (05:27→13:47)
[2020-07-29] MEDS: Mag Hydrox/Al Hydrox/Simeth 30 ML UDC PO (06:38)
[2020-07-29 07:39] LABS: Absolute Lymphocyte Count 1.74 X10^3/uL (0.83-4.51); Absolute Neutrophil Count 7.2 X10^3/uL (2.0-7.7); Basophil# 0.09 X10^3/uL; Basophil% 0.9 % (0-1); Hematocrit 34.1 % (37-47); Hemoglobin 11.3 g/dL (12.0-15.0); Lymphocyte # 1.74 X10^3/ul (4.0); Lymphocyte % 17.2 % (19-41); Mean Corp Hgb Conc 33.1 g/dL (32-36); Mean Corpuscular Hgb 29.7 pg (27.0-32.0); Mean Corpuscular Volume 89.5 fL (81-99); Mean Platelet Vol. 10.4 fl (6.2-12.0); Monocyte# 0.87 X10^3/uL; Monocyte% 8.6 % (0-10); NRBC Flagged by Analyzer 0 % (0-5); Neutrophil # 7.16 X10^3/uL (2.7-7.7); Neutrophil % 70.6 % (47-70); Platelet Count 434 K/mm3 (150-450); RBC Distribution Width CV 12.7 % (11.6-14.6); RBC Distribution Width SD 41.7 fl (35.1-43.9); Red Blood Count 3.81 M/mm3 (4.2-5.4); White Blood Count 10.1 K/mm3 (4.4-11.0)
[2020-07-29 08:11] LABS: Anion Gap 8 (5-15); BUN 12 mg/dL (7-18); BUN/Creat Ratio 17.3 RATIO (10-20); Calcium,Total 8.4 mg/dL (8.5-10.1); Chloride 105 mmol/L (98-107); Creatinine, Serum 0.69 mg/dL (0.55-1.02); EST Glomerular Filtration Rate 89 mL/min (>60); Est Glom Filt Rate - Afr Amer 107 mL/min (>60); Glucose 200 mg/dL (74-106); Potassium 3.6 mmol/L (3.5-5.1); Sodium Level 136 mmol/L (136-145)
[2020-07-29 08:40] LABS: Bedside Glucose 197 mg/dL (70-110)
--- NOTE | 2020-07-29 08:43 | CASEMGMT ---
BRANDI spoke w/BRANDI Woodard at the [place], she will let this SW know as soon as she hears back in regard to the precert. She will let this SW know as soon as she hears back. BRANDI will continue to follow. CATHERINE Adams
[2020-07-29] MEDS: Insulin Lispro 100 UNIT/ML INSULN.PEN 15 UNIT SC ×3 (08:46→16:27)
[2020-07-29] MEDS: Insulin Lispro 100 UNIT/ML INSULN.PEN SC ×2 (08:46→11:41)
[2020-07-29] MEDS: Insulin NPH Human 100 UNITS/ML PEN 60 UNITS SC (08:47)
[2020-07-29] MEDS: Loratadine 10 MG Tablet PO (08:48)
[2020-07-29] MEDS: Aspirin E.C. 325 MG Tablet PO (08:49)
[2020-07-29] MEDS: PARoxetine 10 MG Tablet 30 MG PO (08:49)
[2020-07-29] MEDS: Pantoprazole Sodium 20 MG Tablet PO ×2 (08:49→20:17)
[2020-07-29] MEDS: lamoTRIgine 150 MG Tablet 300 MG PO ×2 (08:50→20:26)
[2020-07-29] MEDS: Topiramate 50 MG Tablet PO ×2 (08:51→20:26)
[2020-07-29] MEDS: tiZANidine HCl 2 MG Tablet PO ×2 (08:53→20:18)
[2020-07-29] MEDS: Senna/Docusate Sodium 1 Tablet 2 TABLET PO ×2 (08:54→20:18)
[2020-07-29 08:59] VITALS: BP 130/65; PULSE 100; RESP 18; TEMP 36.8; O2SAT 96
[2020-07-29] MEDS: amLODIPine 10 MG Tablet PO (09:00)
[2020-07-29] MEDS: Phenobarbital 32.4 MG Tablet PO (09:02)
--- NOTE | 2020-07-29 09:46 | CASEMGMT ---
SW called daughter, let her know that we are still waiting for the precert to go to [facility], will let her know [facility]. CATHERINE Adams
[2020-07-29 12:45] LABS: Bedside Glucose 178 mg/dL (70-110)
[2020-07-29 14:41] VITALS: BP 137/55; PULSE 87; RESP 18; TEMP 36.8; O2SAT 97
--- NOTE | 2020-07-29 14:42 | PCM.PN.HOSP ---
Patient Problems: Active and Suspected Problems (Last Reviewed 07/22/20 @ 21:[address] Ranjeet Richardson MD) Shoulder fracture, right (Acute) Comminuted right humeral fracture (Acute) Recurrent falls (Acute) Debility (Acute) Subjective: Patient seen and examined. She still complains of pain at the site of the surgery. Review of systems otherwise negative. Has remained hemodynamically stable. Vitals/I&O's: Vital Signs Temp Pulse Resp BP Pulse Ox 98.3 F 87 18 137/55 H 97 07/29/20 14:41 07/29/20 14:41 07/29/20 14:41 07/29/20 14:41 07/29/20 14:41 Oxygen Flow Rate (L/min) 2 Oxygen Delivery Method Nasal Cannula Weight: 261 lb 0.437 oz Body Mass Index (BMI) 44.1 Finger Stick Blood Glucose 198 Intake and Output for Last 24 Hours 07/27/20 07/28/20 07/29/20 23:59 23:59 23:59 Intake Total 1310 / 1610 2330 / 2330 116.75 / 116.75 Output Total 100 / 100 1775 / 1775 1300 / 1300 Balance 1210 / 1510 555 / 555 -1183.25 / -1183.25 General: Alert, Oriented x3, Cooperative, - morbid obesity HEENT: Atraumatic, PERRLA, EOMI, Normocephalic Oral: Dry Mucosa Neck: Supple, No JVD, Negative Carotid Bruits Lungs: Clear to auscultation, Normal air movement, No rhonchi, No wheeze, No rales Cardiovascular: Regular rate, Regular Rhythm, Normal S1, Normal S2, No murmurs Abdomen: Bowel Sounds Present, Soft, Non Tender Extremities: No clubbing, No cyanosis, No edema, Capillary Refill Less than 3 Seconds Skin: No rashes, No breakdown Musculoskeletal: - - RUE in a sling. tenderness of RUE Lymphatic: No Cervical, Supraclavicular, or Inguinal Adenopathy Neurological: Cranial nerves II-XII grossly intact, Neuro grossly intact, Motor Exam 5/5 strength throughout Psych/Mental Status: - - Alert and oriented to time, place, person, mood and affect Microbiology Past 72 Hours 07/25/20 21:45 Interface Orders Urine Culture - Final Enterococcus faecalis 07/26/20 16:35 Mucosa - Nasopharyngeal SARS-CoV-2 Antigen (Rapid) - Final Laboratory Results 07/28/20 16:36: POC Glucose 134 H 07/28/20 22:13: POC Glucose 140 H 07/29/20 07:20: WBC 10.1, RBC 3.81 L, Hgb 11.3 L, Hct 34.1 L, MCV 89.5, MCH 29.7, MCHC 33.1, RDW Std Deviation 41.7, RDW Coeff of Linda 12.7, Plt Count 434, MPV 10.4, Immature Gran % (Auto) 0.700, Neut % (Auto) 70.6 H, Lymph % (Auto) 17.2 L, [place] % (Auto) 8.6, Eos % (Auto) 2.0, Baso % (Auto) 0.9, Absolute Neuts (auto) 7.2, Absolute Lymphs (auto) 1.74, Nucleated RBC % 0 07/29/20 07:20: Sodium 136, Potassium 3.6, Chloride 105, Carbon Dioxide 23.0, Anion Gap 8, BUN 12, Creatinine 0.69, Estim Creat Clear Calc 45.20, Est GFR (MDRD) Af Amer 107, Est GFR (MDRD) Non-Af 89, BUN/Creatinine Ratio 17.3, Glucose 200 H, Calcium 8.4 L 07/29/20 08:29: POC Glucose 197 H 07/29/20 11:39: POC Glucose 178 H Current Medications Acetaminophen (Acetaminophen 500 Mg Tablet) 1,000 mg PO Q8 [facility] Last Admin: 07/29/20 13:47 Dose: 1,000 mg Documented by: Al Hydroxide/Mg Hydroxide (Mag Hydrox/Al Hydrox/Simeth 30 Ml Udc) 30 ml PO Q6H PRN PRN PRN Reason: INDIGESTION Last Admin: 07/29/20 06:38 Dose: 30 ml Documented by: Amlodipine Besylate (Amlodipine 10 Mg Tablet) 10 mg PO DAILY [facility] Last Admin: 07/29/20 09:00 Dose: 10 mg Documented by: Amoxicillin (Amoxicillin 500 Mg Capsule) 500 mg PO Q8 [facility] Last Admin: 07/29/20 05:27 Dose: 500 mg Documented by: Aspirin (Aspirin E.C. 325 Mg Tablet) 325 mg PO DAILY@0800 [facility] Last Admin: 07/29/20 08:49 Dose: 325 mg Documented by: Atorvastatin Calcium (Atorvastatin Calcium 20 Mg Tablet) 20 mg PO QHS [facility] Last Admin: 07/28/20 21:58 Dose: 20 mg Documented by: Cholecalciferol (Cholecalciferol (Vit D3) 1,000 Unit (25mcg)) 1,000 unit PO DAILY [facility] Last Admin: 07/29/20 08:50 Dose: 1,000 unit Documented by: Cyclobenzaprine HCl (Cyclobenzaprine Hcl 5 Mg Tablet) 5 mg PO TID PRN PRN PRN Reason: pain/muscle spasms Last Admin: 07/25/20 06:04 Dose: 5 mg Documented by: Dextrose (Dextrose 50%-Water 25 Gm/50 Ml Disp.Syrin) 0 gm IV X1 PRN; Protocol PRN Reason: Hypoglycemia Ergocalciferol (Ergocalciferol 50,000 Unit Capsule) 50,000 unit PO Sa@1000 [facility] Last Admin: 07/23/20 15:41 Dose: 50,000 unit Documented by: Fentanyl (Fentanyl 12 Mcg Patch) 12 mcg TD Q3D@1000 [facility] Last Admin: 07/27/20 10:26 Dose: 12 mcg Documented by: Glucagon (Glucagon 1 Mg/Ml Syringe) 1 mg IM .X1 PRN PRN Reason: Hypoglycemia Hydralazine HCl (Hydralazine 20 Mg/Ml Vial) 10 mg IV Q4H PRN PRN PRN Reason: SBP > 160 or DBP > 120 Last Admin: 07/28/20 23:32 Dose: 10 mg Documented by: Sodium Chloride () 250 mls @ 15 mls/hr IV .[id number] PRN PRN Reason: Saline Flush Last Infusion: 07/29/20 03:00 Dose: 0 mls/hr Documented by: Sodium Chloride () 250 mls @ 15 mls/hr IV .[id number] PRN PRN Reason: Additional IVPB Infusion Insulin Human Lispro (Insulin Lispro 100 Unit/Ml Insuln.Pen) [facility] Last Admin: 07/29/20 11:40 Dose: 15 u Documented by: Insulin Human Lispro (Insulin Lispro 100 Unit/Ml Insuln.Pen) 0 unit SC ACHS [facility]; Protocol Last Admin: 07/29/20 11:41 Dose: 2 u Documented by: Insulin Human NPH (Insulin Nph Human 100 Units/Ml Pen) 60 units SC DAILY@0730 [facility] Last Admin: 07/29/20 08:47 Dose: 60 u Documented by: Insulin Human NPH (Insulin Nph Human 100 Units/Ml Pen) 40 units SC QHS [facility] Last Admin: 07/28/20 22:18 Dose: 40 u Documented by: Lamotrigine (Lamotrigine 150 Mg Tablet) 300 mg PO BID [facility] Last Admin: 07/29/20 08:50 Dose: 300 mg Documented by: Loratadine (Loratadine 10 Mg Tablet) 10 mg PO DAILY [facility] Last Admin: 07/29/20 08:48 Dose: 10 mg Documented by: Ondansetron HCl (Ondansetron 4 Mg/2 Ml Vial) 4 mg IV Q8H PRN PRN PRN Reason: NAUSEA/VOMITING Last Admin: 07/28/20 05:43 Dose: 4 mg Documented by: Oxycodone HCl (Oxycodone 5 Mg Tablet) 5 mg PO Q4H PRN PRN PRN Reason: Pain Score 4-5 Last Admin: 07/28/20 17:18 Dose: 5 mg Documented by: Oxycodone HCl (Oxycodone 5 Mg Tablet) 10 mg PO Q4H PRN PRN PRN Reason: Pain Score 6-10 Last Admin: 07/29/20 13:46 Dose: 10 mg Documented by: Pantoprazole Sodium (Pantoprazole Sodium 20 Mg Tablet) 20 mg PO BID [facility] Last Admin: 07/29/20 08:49 Dose: 20 mg Documented by: Paroxetine HCl (Paroxetine 10 Mg Tablet) 30 mg PO DAILY [facility] Last Admin: 07/29/20 08:49 Dose: 30 mg Documented by: Phenobarbital (Phenobarbital 32.4 Mg Tablet) 32.4 mg PO DAILY [facility] Last Admin: 07/29/20 09:02 Dose: 32.4 mg Documented by: Phenobarbital (Phenobarbital 32.4 Mg Tablet) 64.8 mg PO QPM [facility] Last Admin: 07/28/20 21:56 Dose: 64.8 mg Documented by: Prochlorperazine Edisylate (Prochlorperazine 10 Mg/2 Ml Vial) 5 mg IV Q6H PRN PRN PRN Reason: NAUSEA/VOMITING Last Admin: 07/28/20 09:16 Dose: 5 mg Documented by: Senna/Docusate Sodium (Senna/Docusate Sodium 1 Tablet) 2 tablet PO BID PRN PRN PRN Reason: Constipation Last Admin: 07/29/20 08:54 Dose: 2 tablet Documented by: Sodium Chloride (0.9% Saline Lock 10 Ml Syringe) 10 - 40 ml IV UD PRN PRN Reason: SALINE FLUSH Last Admin: 07/28/20 23:31 Dose: 10 ml Documented by: Tamsulosin HCl (Tamsulosin Hcl 0.4 Mg Capsule) 0.4 mg PO DAILY@1730 [facility] Last Admin: 07/28/20 21:57 Dose: 0.4 mg Documented by: Tizanidine HCl (Tizanidine Hcl 2 Mg Tablet) 2 mg PO Q8H PRN PRN PRN Reason: muscle pain/spasm Last Admin: 07/29/20 08:53 Dose: 2 mg Documented by: Topiramate (Topiramate 50 Mg Tablet) 50 mg PO BID [facility] Last Admin: 07/29/20 08:51 Dose: 50 mg Documented by: STROKE Vital Signs/Narrative: Vital Signs Temp Pulse Resp BP Pulse Ox 07/29/20 14:41 98.3 F 87 18 137/55 H 97 Medical Necessity - Tobacco Use Smoking Status: Never smoker Assessment/Plan All Active Problems (Last Reviewed 07/22/20 @ 21:[address] Ranjeet Richardson MD) Fall (Acute) Proximal humerus fracture (Acute) Shoulder fracture, right (Acute) Comminuted right humeral fracture (Acute) Recurrent falls (Acute) Debility (Acute) #Right humeral fracture s/p reverse right total shoulder replacement today is POD 3 PT/OT on board. fall precautions on fentanyl patch, oxycodone and tylenol as well as ketorolac PT/OT on board fall precautions #UTI: urine cultured Enterococcus faecalis. on PO amoxicillin #Type 2 diabetes mellitus: On NPH insulin 60 units daily and 40 units nightly. Insulin sliding scale. Checks AC at bedtime. #Hypertension: On amlodipine. IV hydralazine as needed #Hyperlipidemia: on statin #Asthma: Breathing treatments as needed #Morbid obesity: Complicates acute care, recovery and expected prognosis. DVT prophylaxis: aspirin 325mg daily for 2 weeks, per orthopedics. Disposition: awaiting placement, pending [facility] approval. Inpatient E&M: [id number] [facility] L2
--- NOTE | 2020-07-29 15:25 | CASEMGMT ---
Addendum entered by Kami Cheema 07/29/20 16:30: BRANDI spoke antony/Luh from [facility], the precert was changed to [facility]. Once the COVID testing comes back, pt can be discharged. BRANDI faxed all discharge paperwork to [facility]. BRANDI called daughter, let her know the precert is good for [facility] and once pt's COVID results come back she can be set up to go. BRANDI explained we are setting up an ambulance for pt for safety, SW explained is not certain if [facility] will cover but is the safest way to transport pt. Daughter states understanding. SW also let pt know that we are just now waiting for the results of the COVID test and once that comes back she will be set up to go. She is not sure if transport is covered by [place] but states she never got a bill. Green sheet placed on chart, staff will set up transport and call daughter once COVID test comes back negative. CATHERINE Adams Addendum entered by Kami Cheema 07/29/20 15:55: BRANDI spoke w/rylie, she spoke antony/Luh at [facility]. The plan is for [facility], NOT [facility]. BRANDI called Luh at [facility], she confirmed the plan is [facility]. She spoke w[facility] and is waiting for a call back, the authorization is being changed from [facility] to [facility]. BRANDI redid the hospital exemption in [place] for [facility]. SW awaiting discharge instructions, final word from [facility] or [facility] that the auth was changed, and the COVID testing. CATHERINE Adams Original Note: Precert was attained for pt to go to senior living today. COVID test ordered so pt can be discharged today. BRANDI notified physician. BRANDI let pt know that she will be able to go to the senior living today, she is agreeable. BRANDI spoke antony/Luh at [facility]. She states pt is going to [facility], not [facility]. Luh states [facility] have a COVID unit separate from where this pt would be going, and that [facility] specializes in difficult behaviors. BRANDI explained it was documented [facility]. SW called daughter for clarification. Daughter states she wants pt to go to [facility], she is aware they specialize in difficult behaviors and thought pt should go there. SW explained will call Luh at [facility] to have her call daughter to clarify. SW awaiting call back. CATHERINE Adams
--- NOTE | 2020-07-29 15:41 | DS.PCM_ITS ---
Discharge Date and Diagnosis - Problem List Patient Problems: Active and Suspected Problems (Last Reviewed 07/22/20 @ 21:[address] Ranjeet Richardson MD) Shoulder fracture, right (Acute) Comminuted right humeral fracture (Acute) Recurrent falls (Acute) Debility (Acute) Date of Admission: 07/22/20 Date of Discharge: 07/29/20 - Primary Discharge Diagnosis Acute Problems: Active Problems (Last Reviewed 07/22/20 @ 21:[address] Ranjeet Richardson MD) Shoulder fracture, right (Acute) Comminuted right humeral fracture (Acute) Recurrent falls (Acute) Debility (Acute) - Secondary Discharge Diagnosis Chronic Problems: Chronic Problems (Last Reviewed 07/22/20 @ 21:[address] Ranjeet Richardson MD) Hypertension (Chronic) Diabetes mellitus type 2 in obese (Chronic) Dyslipidemia (Chronic) Chronic stable Asthma (Chronic) Hospital Course and Treatment Imaging Results: Diagnostic Data Hand X-Ray 07/22/20 15:53 IMPRESSION: No acute fracture or dislocation. Electronically Signed: Deep Echols MD at 16:29 EST Tel , Service support , Ribs w/Chest X-Ray 07/22/20 15:53 IMPRESSION: RIBS: Acute or chronic fracture the anterolateral right seventh rib. CHEST: Normal x-ray examination of the chest. Electronically Signed: Deep Echols MD at 16:33 EST Tel , Service support , Shoulder X-Ray 07/27/20 20:20 IMPRESSION: Reverse right total shoulder replacement. There is residual periprosthetic fracture. Electronically Signed: Flaco Baron MD at 21:33 EST , Service support , Operations: None, - - right shoulder reverse repair Procedures: None Summary of Care Provided: The patient is a 70 year old F with an extensive past medical history as outlined was admitted through the ED on 07/22/2020 with a complaint of mechanical fall. She fell and landed on her right shoulder and had excruciating pain of her right shoulder. Pain was worsened with movement and relieved by rest. She says she was sitting in her chair and fell backwards. Imaging done showed a proximal right humeral and shoulder fracture. Of note, patient had been seen in the hospital on 07/10/2020 was subsequently discharged on 07/15/2020 for the same fracture. She was discharged to a prison but left the prison and went home. Family brought her back on 07/22/2020 because he could not take care of her at home. She was admitted and managed for debility due to right shoulder fracture. Orthopedic surgery was consulted. Patient was put on IV pain medication to help control pain. Skull therapy was also consulted. She had reverse right total shoulder replacement on 07/27/2020 and tolerated procedure well. She was put on aspirin 325 mg daily for 2 weeks for DVT prophylaxis per orthopedics. Of note, urine culture on account of urinary symptoms cultured Enterococcus faecalis. She was therefore switched from IV ceftriaxone which she had been on for UTI to p.o. amoxicillin. Patient remained stable and work with physical therapy. She was discharged to halfway facility on 07/29/2020. She is to follow-up with her primary care doctor and is also to follow-up with orthopedic surgery. Patient seen and examined prior to discharge. She still complained of some pain in her right shoulder. Review systems otherwise negative. Labs and vitals reviewed. Home medication reviewed and reconciled. O/E: [] Vital Signs Temp Pulse Resp BP Pulse Ox 98.3 F 87 18 137/55 H 97 07/29/20 14:41 07/29/20 14:41 07/29/20 14:41 07/29/20 14:41 07/29/20 14:41 General: Alert, Oriented x3, Cooperative, - morbid obesity HEENT: Atraumatic, PERRLA, EOMI, Normocephalic Oral: Dry Mucosa Neck: Supple, No JVD, Negative Carotid Bruits Lungs: Clear to auscultation, Normal air movement, No rhonchi, No wheeze, No rales Cardiovascular: Regular rate, Regular Rhythm, Normal S1, Normal S2, No murmurs Abdomen: Bowel Sounds Present, Soft, Non Tender Extremities: No clubbing, No cyanosis, No edema, Capillary Refill Less than 3 Seconds Skin: No rashes, No breakdown Musculoskeletal: - - RUE in a sling. dressing over right shoulder Lymphatic: No Cervical, Supraclavicular, or Inguinal Adenopathy Neurological: Cranial nerves II-XII grossly intact, Neuro grossly intact, Motor Exam 5/5 strength throughout Psych/Mental Status: - - Alert and oriented to time, place, person, mood and affect Plan is for discharge to SNF today. Patient Problems: Active and Suspected Problems (Last Reviewed 07/22/20 @ 21:[address] Ranjeet Richardson MD) Shoulder fracture, right (Acute) Comminuted right humeral fracture (Acute) Recurrent falls (Acute) Debility (Acute) - Physical Exam Vitals/I&O's: Vital Signs Temp Pulse Resp BP Pulse Ox 98.3 F 87 18 137/55 H 97 07/29/20 14:41 07/29/20 14:41 07/29/20 14:41 07/29/20 14:41 07/29/20 14:41 Oxygen Flow Rate (L/min) 2 Oxygen Delivery Method Nasal Cannula Weight: 261 lb 0.437 oz Body Mass Index (BMI) 44.1 Finger Stick Blood Glucose 198 Intake and Output for Last 24 Hours 07/27/20 07/28/20 07/29/20 23:59 23:59 23:59 Intake Total 1310 / 1610 2330 / 2330 116.75 / 116.75 Output Total 100 / 100 1775 / 1775 1300 / 1300 Balance 1210 / 1510 555 / 555 -1183.25 / -1183.25 Microbiology Past 72 Hours 07/25/20 21:45 Interface Orders Urine Culture - Final Enterococcus faecalis 07/26/20 16:35 Mucosa - Nasopharyngeal SARS-CoV-2 Antigen (Rapid) - Final Laboratory Results 07/28/20 16:36: POC Glucose 134 H 07/28/20 22:13: POC Glucose 140 H 07/29/20 07:20: WBC 10.1, RBC 3.81 L, Hgb 11.3 L, Hct 34.1 L, MCV 89.5, MCH 29.7, MCHC 33.1, RDW Std Deviation 41.7, RDW Coeff of Linda 12.7, Plt Count 434, MPV 10.4, Immature Gran % (Auto) 0.700, Neut % (Auto) 70.6 H, Lymph % (Auto) 17.2 L, Jenkins % (Auto) 8.6, Eos % (Auto) 2.0, Baso % (Auto) 0.9, Absolute Neuts (auto) 7.2, Absolute Lymphs (auto) 1.74, Nucleated RBC % 0 07/29/20 07:20: Sodium 136, Potassium 3.6, Chloride 105, Carbon Dioxide 23.0, An ion Gap 8, BUN 12, Creatinine 0.69, Estim Creat Clear Calc 45.20, Est GFR (MDRD) Af Amer 107, Est GFR (MDRD) Non-Af 89, BUN/Creatinine Ratio 17.3, Glucose 200 H , Calcium 8.4 L 07/29/20 08:29: POC Glucose 197 H 07/29/20 11:39: POC Glucose 178 H Current Medications Acetaminophen (Acetaminophen 500 Mg Tablet) 1,000 mg PO Q8 [facility] Last Admin: 07/29/20 13:47 Dose: 1,000 mg Documented by: Al Hydroxide/Mg Hydroxide (Mag Hydrox/Al Hydrox/Simeth 30 Ml Udc) 30 ml PO Q6H PRN PRN PRN Reason: INDIGESTION Last Admin: 07/29/20 06:38 Dose: 30 ml Documented by: Amlodipine Besylate (Amlodipine 10 Mg Tablet) 10 mg PO DAILY [facility] Last Admin: 07/29/20 09:00 Dose: 10 mg Documented by: Amoxicillin (Amoxicillin 500 Mg Capsule) 500 mg PO Q8 [facility] Last Admin: 07/29/20 14:43 Dose: 500 mg Documented by: Aspirin (Aspirin E.C. 325 Mg Tablet) 325 mg PO DAILY@0800 [facility] Last Admin: 07/29/20 08:49 Dose: 325 mg Documented by: Atorvastatin Calcium (Atorvastatin Calcium 20 Mg Tablet) 20 mg PO QHS [facility] Last Admin: 07/28/20 21:58 Dose: 20 mg Documented by: Cholecalciferol (Cholecalciferol (Vit D3) 1,000 Unit (25mcg)) 1,000 unit PO DAILY [facility] Last Admin: 07/29/20 08:50 Dose: 1,000 unit Documented by: Cyclobenzaprine HCl (Cyclobenzaprine Hcl 5 Mg Tablet) 5 mg PO TID PRN PRN PRN Reason: pain/muscle spasms Last Admin: 07/25/20 06:04 Dose: 5 mg Documented by: Dextrose (Dextrose 50%-Water 25 Gm/50 Ml Disp.Syrin) 0 gm IV X1 PRN; Protocol PRN Reason: Hypoglycemia Ergocalciferol (Ergocalciferol 50,000 Unit Capsule) 50,000 unit PO Sa@1000 [facility] Last Admin: 07/23/20 15:41 Dose: 50,000 unit Documented by: Fentanyl (Fentanyl 12 Mcg Patch) 12 mcg TD Q3D@1000 [facility] Last Admin: 07/27/20 10:26 Dose: 12 mcg Documented by: Glucagon (Glucagon 1 Mg/Ml Syringe) 1 mg IM .X1 PRN PRN Reason: Hypoglycemia Hydralazine HCl (Hydralazine 20 Mg/Ml Vial) 10 mg IV Q4H PRN PRN PRN Reason: SBP > 160 or DBP > 120 Last Admin: 07/28/20 23:32 Dose: 10 mg Documented by: Sodium Chloride () 250 mls @ 15 mls/hr IV .[id number] PRN PRN Reason: Saline Flush Last Infusion: 07/29/20 03:00 Dose: 0 mls/hr Documented by: Sodium Chloride () 250 mls @ 15 mls/hr IV .[id number] PRN PRN Reason: Additional IVPB Infusion Insulin Human Lispro (Insulin Lispro 100 Unit/Ml Insuln.Pen) 15 unit SC TIDCM [facility] Last Admin: 07/29/20 11:40 Dose: 15 u Documented by: Insulin Human Lispro (Insulin Lispro 100 Unit/Ml Insuln.Pen) 0 unit SC ACHS [facility]; Protocol Last Admin: 07/29/20 11:41 Dose: 2 u Documented by: Insulin Human NPH (Insulin Nph Human 100 Units/Ml Pen) 60 units SC DAILY@0730 [facility] Last Admin: 07/29/20 08:47 Dose: 60 u Documented by: Insulin Human NPH (Insulin Nph Human 100 Units/Ml Pen) 40 units SC QHS [facility] Last Admin: 07/28/20 22:18 Dose: 40 u Documented by: Lamotrigine (Lamotrigine 150 Mg Tablet) 300 mg PO BID [facility] Last Admin: 07/29/20 08:50 Dose: 300 mg Documented by: Loratadine (Loratadine 10 Mg Tablet) 10 mg PO DAILY [facility] Last Admin: 07/29/20 08:48 Dose: 10 mg Documented by: Ondansetron HCl (Ondansetron 4 Mg/2 Ml Vial) 4 mg IV Q8H PRN PRN PRN Reason: NAUSEA/VOMITING Last Admin: 07/28/20 05:43 Dose: 4 mg Documented by: Oxycodone HCl (Oxycodone 5 Mg Tablet) 5 mg PO Q4H PRN PRN PRN Reason: Pain Score 4-5 Last Admin: 07/28/20 17:18 Dose: 5 mg Documented by: Oxycodone HCl (Oxycodone 5 Mg Tablet) 10 mg PO Q4H PRN PRN PRN Reason: Pain Score 6-10 Last Admin: 07/29/20 13:46 Dose: 10 mg Documented by: Pantoprazole Sodium (Pantoprazole Sodium 20 Mg Tablet) 20 mg PO BID [facility] Last Admin: 07/29/20 08:49 Dose: 20 mg Documented by: Paroxetine HCl (Paroxetine 10 Mg Tablet) 30 mg PO DAILY [facility] Last Admin: 07/29/20 08:49 Dose: 30 mg Documented by: Phenobarbital (Phenobarbital 32.4 Mg Tablet) 32.4 mg PO DAILY [facility] Last Admin: 07/29/20 09:02 Dose: 32.4 mg Documented by: Phenobarbital (Phenobarbital 32.4 Mg Tablet) 64.8 mg PO QPM [facility] Last Admin: 07/28/20 21:56 Dose: 64.8 mg Documented by: Prochlorperazine Edisylate (Prochlorperazine 10 Mg/2 Ml Vial) 5 mg IV Q6H PRN PRN PRN Reason: NAUSEA/VOMITING Last Admin: 07/28/20 09:16 Dose: 5 mg Documented by: Senna/Docusate Sodium (Senna/Docusate Sodium 1 Tablet) 2 tablet PO BID PRN PRN PRN Reason: Constipation Last Admin: 07/29/20 08:54 Dose: 2 tablet Documented by: Sodium Chloride (0.9% Saline Lock 10 Ml Syringe) 10 - 40 ml IV UD PRN PRN Reason: SALINE FLUSH Last Admin: 07/28/20 23:31 Dose: 10 ml Documented by: Tamsulosin HCl (Tamsulosin Hcl 0.4 Mg Capsule) 0.4 mg PO DAILY@1730 [facility] Last Admin: 07/28/20 21:57 Dose: 0.4 mg Documented by: Tizanidine HCl (Tizanidine Hcl 2 Mg Tablet) 2 mg PO Q8H PRN PRN PRN Reason: muscle pain/spasm Last Admin: 07/29/20 08:53 Dose: 2 mg Documented by: Topiramate (Topiramate 50 Mg Tablet) 50 mg PO BID [facility] Last Admin: 07/29/20 08:51 Dose: 50 mg Documented by: Discharge Diet: Low fat/ Low Cholesterol Discharge Activity: May Not Drive May shower in (days): 1 - Dressing must be intact the skin. Turn dressing away from water Ice area for (Minutes): 20 - Every 1-2 hours while awake Weight Bearing Status: No weight bearing - Right upper extremity. Continue with UltraSling at all times Call your doctor if your incision/area has: Continuous Slow Oozing, Sudden Increased Bleeding, Increased Pain/ Swelling, Increased Redness, Foul Smelling Discharge Call your doctor if you observe: Fever of 101 or Higher, Coldness, Increased Pain, Numbness or Tingling, Change in Color Remove Dressing in (days):: 4 - Okay for dressing removal on August 01, 2020. Home Medications: Medications to take at Discharge Omeprazole [Prilosec] 20 mg PO BID 12/19/13 Simvastatin [Zocor] 40 mg PO QHS 12/19/13 Topiramate [Topamax] 50 mg PO BID 12/19/13 Albuterol Aerosols [Ventolin Aerosols] 2.5 mg INHALATION Q4H PRN PRN 05/09/14 Glucosam/Kiran-Msm1/C/Cricket/Bosw [Osteo Bi-Flex Caplet] 1 each PO BID 05/09/14 Insulin NPH Human [Humulin N Pen] 60 units SC DAILY@0730 05/09/14 Insulin Regular, Human [Novolin R] 20 unit SC BIDAC 05/09/14 Aspirin [Aspirin, Baby] 81 mg PO DAILY@0800 08/26/18 Budesonide/Formoterol 160/4.5 [Symbicort 160/4.5 Mcg Inhaler (SP)] 1 puff INHALATION BID PRN PRN 08/26/18 Paroxetine HCl 30 mg PO DAILY 08/26/18 Amlodipine [Norvasc] 10 mg PO DAILY #0 08/28/18 Tizanidine HCl [Zanaflex] 2 mg PO Q8H PRN PRN #20 tab 08/28/18 Insulin NPH Human [Humulin N Pen] 40 units SC QHS 07/10/20 cycloBENZAPRine HCl [Cyclobenzaprine HCl] 5 mg PO TID PRN PRN tab 07/15/20 Cetirizine HCl [Zyrtec] 10 mg PO DAILY 07/22/20 Cholecalciferol (Vitamin D3) [Vitamin D3] 1,000 unit PO DAILY 07/22/20 Lamotrigine [Lamictal] 300 mg PO BID 07/22/20 Phenobarbital 30 mg PO DAILY 07/22/20 Phenobarbital 60 mg PO DAILY 07/22/20 Amoxicillin [Amoxil] 500 mg PO Q8 #5 cap 07/29/20 Aspirin E.C. [Ecotrin] 325 mg PO DAILY@0800 #14 tab 07/29/20 Oxycodone [Oxyir] 5 mg PO Q4H PRN PRN 3 Days #18 tab 07/29/20 Following Prescriptions Were Given to Patient: Amoxicillin [Amoxil] 500 mg PO Q8 #5 cap Prescription Printed Aspirin E.C. [Ecotrin] 325 mg PO DAILY@0800 #14 tab Prescription Printed Oxycodone [Oxyir] 5 mg PO Q4H PRN PRN 3 Days #18 tab PRN Reason: Pain Score 4-5 Prescription Printed Primary Care Physician: Yovanny Ruano MD [Primary Care Provider] - Angel Richard MD [STAFF PHYSICIAN] - Please Follow Up With: Ramos Mills PA-C When: please schedule follow up week of August 08, 2020 Additional Instructions: Physical therapy/Occupational Therapy: Continue with UltraSling at all times except to come out for range of motion exercises of the elbow and pendulum exercise 3 times daily. No range of motion of the postoperative shoulder until assessed at [facility] at 2-week follow-up. Formal physical therapy will begin 2 weeks postoperatively after follow-up with [facility] with x-rays and incision check. Do not proceed with any range of motion of the right shoulder until cleared by orthopedics. Patient will be nonweightbearing on the right upper extremity. DVT prophylaxis: Recommend 325 mg aspirin once daily for 2 weeks postoperatively Disposition: Longterm facility Minutes spent on discharge:: 45 Patient Condition:: Stable Medical Necessity - Tobacco Use Smoking Status: Never smoker Meaningful Use Info Meaningful Use Diagnoses (Choose all that apply): None applicable Inpatient E&M: 38630 Disch Hosp
--- NOTE | 2020-07-29 15:47 | PCM.TXEXTCAR ---
- Diet 07/28/20 09:04 Diet: Cardiac: Calorie-Controlled Type of Dietary Supplement:: Glucerna Denke Is pt able to select menu?: No How many daily calories?: 1800 calorie - Routine Orders/Code Status Enema Type: Fleetz Enema Frequency: Daily PRN Suppository Type: Dulcolax 10mg Suppository Frequency: Daily PRN O2 Frequency: PRN Keep PO Greater than or Equal to (%): 90 - Wound(s) shoulder right Wound Type: Surgical Incision - Therapies Weight Bearing: Non weight bearing Physical Therapy: Eval and Treat Occupational Therapy: Eval and Treat - Allergies/Procedures Done in Hospital Allergies/Adverse Reactions: Allergies ciprofloxacin Allergy (Verified 07/22/20 15:23) Unknown hydrochlorothiazide Allergy (Verified 07/22/20 15:23) Unknown pentazocine [From Talwin] Allergy (Verified 07/22/20 15:23) Unknown Procedures: None - Type of Care/Length of Stay Estimated LOS: Convalescent Care Less Than 30 days Type of Care Needed: Skilled Rehab Potential: Fair Prognosis: Fair - Additional Orders/Day of Discharge Day of Discharge: 07/29/20 - Follow Up Care Primary Care Physician: Yovanny Ruano MD [Primary Care Provider] - Angel Richard MD [STAFF PHYSICIAN] - Please Follow Up With: Ramos Mills PAShannonC When: please schedule follow up week of August 08, 2020
[2020-07-29] MEDS: Tamsulosin HCl 0.4 MG Capsule PO (16:27)
[2020-07-29 16:35] LABS: Bedside Glucose 129 mg/dL (70-110)
[2020-07-29 17:02] VITALS: O2SAT 98
--- NOTE | 2020-07-29 20:12 | NURSING ---
spoke with Abner in [employer]- states about 10 minutes then will have COVID results
[2020-07-29] MEDS: Phenobarbital 32.4 MG Tablet 64.8 MG PO (20:17)
[2020-07-29] MEDS: Insulin NPH Human 100 UNITS/ML PEN 40 UNITS SC (20:22)
[2020-07-29] MEDS: Atorvastatin Calcium 20 MG Tablet PO (20:26)
--- NOTE | 2020-07-29 20:43 | NURSING ---
SPOKE WITH TRANSPORT SERVICES- STATES WILL ARRIVE @ APPROXIMATELY 2114 TO TRANSPORT PT TO [facility]. sPOKE WITH PT DAUGHTER SARAH ANGELES ( PER GREEN [employer]ET) AND INFORMED OF TRANSPORT PLANNING TECHNICIAN TIME.
== END 2020-07-29 21:30 | disposition skilled nursing facility (03) | DRG 483 ==
LOC: ED 17:51 → MS3 19:50
PROVIDERS: Anesthesiology; Family Medicine; Specialist; Admitting Provider Hospitalist; Emergency Provider Physician Assistant; PCP Family Medicine; Visit Provider Student in an Organized Health Care Education/Training Program
PROC: 0RRJ00Z Replacement of Right Shoulder Joint with Reverse Ball and Socket Synthetic Substitute, Open Approach (ICD-10-PCS; CPT 23472; principal; 2020-07-27 15:30)
DX: S42.351A Displaced comminuted fracture of shaft of humerus, right arm, initial encounter for closed fracture (principal); Z68.41 Body mass index [BMI] 40.0-44.9, adult; N39.0 Urinary tract infection, site not specified; D62 Acute posthemorrhagic anemia; S42.241A 4-part fracture of surgical neck of right humerus, initial encounter for closed fracture; G89.29 Other chronic pain; R29.6 Repeated falls; S20.219A Contusion of unspecified front wall of thorax, initial encounter; S60.221A Contusion of right hand, initial encounter; I10 Essential (primary) hypertension; E78.5 Hyperlipidemia, unspecified; F32.9 Major depressive disorder, single episode, unspecified; F41.9 Anxiety disorder, unspecified; E11.65 Type 2 diabetes mellitus with hyperglycemia; K21.9 Gastro-esophageal reflux disease without esophagitis; J44.9 Chronic obstructive pulmonary disease, unspecified; G40.909 Epilepsy, unspecified, not intractable, without status epilepticus; R62.7 Adult failure to thrive; E55.9 Vitamin D deficiency, unspecified; W07.XXXA Fall from chair, initial encounter; Y92.009 Unspecified place in unspecified non-institutional (private) residence as the place of occurrence of the external cause; Z79.4 Long term (current) use of insulin; Z79.51 Long term (current) use of inhaled steroids; Z79.82 Long term (current) use of aspirin; Z90.710 Acquired absence of both cervix and uterus; Z96.611 Presence of right artificial shoulder joint; E66.01 Morbid (severe) obesity due to excess calories; B95.2 Enterococcus as the cause of diseases classified elsewhere
CPT/HCPCS: 36415; 71101; 73030; 73130; 80048; 81001; 82962; 83036; 85025; 87077; 87086; 87088; 87186; 87426; 87635; 88305; 88311; 94640; 97110; 97116; 97162; 97166; 97530; 97535; 99251; 99285; C1713; C1776; J7040; J7050; J7120; A4216; G0463; J2405; U0002

== ENCOUNTER 2020-11-25 16:27 | Inpatient (IN) | payer OTHER, SELFPAY ==
[2020-07-27 14:20] VITALS: BMI 44.1
[2020-11-25] VITALS (13 sets, daily range): BP systolic 145–192; BP diastolic 60–88; PULSE 86–91; RESP 18–20; TEMP 36.6–37; O2SAT 95–100; BMI 42.3; BMI 41.6
--- NOTE | 2020-11-25 16:46 | EKG12_ITS ---
Test Reason : FALL Blood Pressure : / mmHG Vent. Rate : 092 BPM Atrial Rate : 092 BPM P-R Int : 196 ms QRS Dur : 124 ms QT Int : 414 ms P-R-T Axes : 042 -60 084 degrees QTc Int : 511 ms Normal sinus rhythm Left anterior fascicular block Left ventricular hypertrophy with QRS widening and repolarization abnormality Abnormal ECG Confirmed by MARIA E ALEJANDRO, CARLOS ([id number]), tape editor CELINA RODRIGUES ([id number]) on 11/29/2020 9:18:49 AM Referred By: MARISSA Confirmed By:PRASAD SANDERSON MD
--- NOTE | 2020-11-25 16:46 | CT_ITS ---
STUDY: CT BRAIN WITHOUT CONTRAST REASON FOR EXAM: Female, 70 years old. Head injury RADIATION DOSAGE (If Supplied By Facility): CTDIvol = ( 44.99 ) mGy, DLP = ( 863.60 ) mGycm TECHNIQUE: Transaxial CT imaging of the brain was performed without administration of intravenous contrast material. Individualized dose optimization techniques were used for this CT. COMPARISON: 10/12/2011 FINDINGS: Normal soft tissue structures. Normal calvarium. Normal size ventricles and extra-axial spaces for the patient''s age. Mild periventricular white matter ischemic changes.. Normal basal ganglia and thalami. Normal brainstem. Normal cerebellum. Partial empty sella deformity There is no intracranial hemorrhage. There are no findings of an acute ischemic infarction. Postsurgical changes of the orbits. Mild mucosal thickening right maxillary bilateral ethmoid sinuses.. CT/Brain/Head without Contrast IMPRESSION: Mild periventricular white matter ischemic changes. No evidence for acute intracranial bleed.. Electronically Signed: Everton Abraham MD at 18:07 EDT , Service support ,
--- NOTE | 2020-11-25 16:49 | ED.VISSUMM ---
- ER Visit Summary Date of Service: 11/25/20 Chief Complaint: Fall History of Present Illness: The patient is a 70 F who presents after a fall. Patient thinks she fell 2 days ago. Patient states she tried to sit on the toilet and her toilet seat was loose. Patient states her bathroom rug also gave way and caused her to fall. Patient hit her head and chest. Patient also complains of some pain in her right shoulder but states this is due to her prior surgery. Patient states her pain is stabbing. Patient states nothing makes it worse and nothing makes it better. Patient is unsure if she had any loss of consciousness. Patient denies any paresthesias or weakness. Patient denies any injuries to her extremities. Patient states she was able to ambulate after the fall. Physical Examination: Vital signs are stable except for an elevated blood pressure of 192/68. Patient is afebrile. Patient is in no acute distress. Oral mucosa is pink and moist. Neck is supple. Trachea is midline. There is no JVD. Heart was regular rate and rhythm. Lungs are clear and equal bilaterally. There is tenderness over the ribs bilaterally. There is no edema or ecchymosis. There is no bony crepitance or step-off. Abdomen is soft. Bowel sounds are normal. There is no tenderness. Cranial nerves II through XII are intact. There are no focal motor or sensory deficits. Skin is warm and dry. There is some ecchymosis over the forehead near the hairline. There is some mild edema. There is no bony crepitance or step-off. Test Results: EKG was obtained. On my interpretation, it showed a normal sinus rhythm with a rate of 92. DC interval, and QTc intervals were all normal. QRS interval was slightly prolonged at 124 ms. There is a left anterior fascicular block noted. There is left ventricular hypertrophy noted. [place] was normal. There are no acute ST or T wave changes. This was unchanged compared to previous EKG dated 07/10/2020. CBC shows a leukocytosis of 19.7. Platelets were elevated at 456. BUN and creatinine were slightly elevated at 25 and 1.08. Glucose was 337. Troponin was slightly elevated at 0.212. Total CK was 549. CT scan of the brain was obtained. There is no acute intracranial abnormality. This was interpreted by the radiologist and reviewed by myself. X-rays of the bilateral ribs were obtained. There are 8 views. On my interpretation, there is no acute rib fracture. There is old healed fracture of the right seventh rib. There is no acute cardiopulmonary process. Radiologist also interpreted the x-ray and agrees. Emergency Department Course and Treatment: Patient was advised of her findings. Patient was given aspirin. Case was discussed with the hospitalist. He will admit the patient for observation. Patient understood and was agreeable with the plan. All questions were answered. Disposition: Admit to hospital Impression: 1. Fall 2. Elevated troponin This note was generated with [employer] 2[employer] dictation software. It may contain incorrect words, spelling, and punctuation that were not noted in review of the chart prior to signing ED Disposition - Plan for ED Patient: Disposition: Acute Care Hospital [facility] Diagnosis: Fall, Elevated troponin
[2020-11-25] MEDS: 0.9% Normal Saline 1,000 ML 1000 ML IV (17:18)
[2020-11-25] MEDS: Ondansetron 4 MG/2 ML Vial IV ×2 (17:18→22:43)
[2020-11-25 17:33] LABS: Absolute Neutrophil Count 16.6 X10^3/uL (2.0-7.7); Basophil# 0.04 X10^3/uL; Basophil% 0.2 % (0-1); Hematocrit 39.6 % (37-47); Hemoglobin 13.4 g/dL (12.0-15.0); Lymphocyte % 9.2 % (19-41); Mean Corp Hgb Conc 33.8 g/dL (32-36); Mean Corpuscular Hgb 28.8 pg (27.0-32.0); Mean Corpuscular Volume 85.2 fL (81-99); Mean Platelet Vol. 11.1 fl (6.2-12.0); Monocyte# 1.08 X10^3/uL; Monocyte% 5.5 % (0-10); NRBC Flagged by Analyzer 0 % (0-5); Neutrophil # 16.62 X10^3/uL (2.7-7.7); Neutrophil % 84.4 % (47-70); Platelet Count 456 K/mm3 (150-450); RBC Distribution Width CV 13.4 % (11.6-14.6); RBC Distribution Width SD 40.7 fl (35.1-43.9); Red Blood Count 4.65 M/mm3 (4.2-5.4); White Blood Count 19.7 K/mm3 (4.4-11.0)
--- NOTE | 2020-11-25 17:48 | RAD_ITS ---
STUDY: X-RAY - BILATERAL RIBS WITH CHEST REASON FOR EXAM: Female, 70 years old. Trauma TECHNIQUE - RIBS: 6 view(s) of the ribs. TECHNIQUE - CHEST: PA COMPARISON: None. FINDINGS - RIBS : Old healed fracture of the right seventh rib. FINDINGS - CHEST: The lungs are clear and expanded. There is no demonstrated pleural abnormality. Mild prominence of the cardiac silhouette and dense calcification of the mitral annulus Normal mediastinum and jane. Normal visualized pulmonary arteries. Normal visualized aortic arch and descending thoracic aorta. Normal visualized thoracic spine. Normal visualized ribs, and clavicles. Right shoulder prosthesis is noted Postsurgical changes in the right upper abdomen RAD/Ribs Jus Min 4V w/PA Chest IMPRESSION: RIBS: Old healed fracture of the right seventh rib. No definitive evidence for acute fracture.. CHEST: No acute cardiopulmonary pathology Electronically Signed: Everton Abraham MD at 18:27 EDT , Service support ,
[2020-11-25 18:01] LABS: ALB/GLOB Ratio 0.7 RATIO (0.9-2.4); AST(SGOT) 46 U/L (15-37); Alanine Aminotransfer ALT/SGPT 19 U/L (13-56); Albumin, Serum 3.1 g/dL (3.2-5.0); Alkaline Phosphatase 162 U/L (45-117); Anion Gap 10 (5-15); BUN 25 mg/dL (7-18); BUN/Creat Ratio 23.1 RATIO (10-20); CPK Total, Creatine Kinase 549 U/L (26-192); Calcium,Total 9.2 mg/dL (8.5-10.1); Chloride 100 mmol/L (98-107); Creatinine, Serum 1.08 mg/dL (0.55-1.02); EST Glomerular Filtration Rate 53 mL/min (>60); Est Glom Filt Rate - Afr Amer 64 mL/min (>60); Estimated Creatinine Clearance 45.37 ml/min; Globulin 4.4 g/dL (2.2-4.2); Glucose 337 mg/dL (74-106); Protein, Total 7.5 g/dL (6.4-8.2); Sodium Level 134 mmol/L (136-145)
[2020-11-25 18:40] LABS: Bacteria 0 SEEN /hpf (None Seen); Mucous, Urine 0 SEEN /hpf (<or=2+); Squamous Epithelial Cells - UA 0 SEEN /hpf (5-10)
--- NOTE | 2020-11-25 18:44 | NURSING ---
PCU OBS ASHELFAH FALL, ELEVATED TROP
--- NOTE | 2020-11-25 18:49 | NURSING ---
CALLED [facility] TO GIVE INFO ABOUT TRANSFER/ADMISSION TALKED TO LEBRON. NO BED COODINATOR GLENN. DO WHAT IS IN THE BEST INTERESTMENT OF THE PATIENT
--- NOTE | 2020-11-25 18:51 | HP.PCM_ITS ---
History of Present Illness The patient is a 70 year old F [] Past Medical History Past Medical History (Chronic Problems): Chronic Problems (Last Reviewed 07/22/20 @ 21:[address] Ranjeet Richardson MD) Hypertension (Chronic) Diabetes mellitus type 2 in obese (Chronic) Dyslipidemia (Chronic) Chronic stable Asthma (Chronic) Medical History: Medical History (Last Reviewed 07/22/20 @ 21:[address] Ranjeet Richardson MD) Diabetes mellitus E11.9 Diabetes mellitus E11.9 Allergies ciprofloxacin Allergy (Verified 11/25/20 16:42) Unknown hydrochlorothiazide Allergy (Verified 11/25/20 16:42) Unknown pentazocine [From Talwin] Allergy (Verified 11/25/20 16:42) Unknown Home Medications: Ambulatory Orders Medication Instructions Recorded Omeprazole [Prilosec] 20 mg PO BID 12/19/13 Simvastatin [Zocor] 40 mg PO QHS 12/19/13 Topiramate [Topamax] 50 mg PO BID 12/19/13 Albuterol Aerosols [Ventolin 2.5 mg INHALATION Q4H PRN PRN 05/09/14 Aerosols] Glucosam/Kiran-Msm1/C/Cricket/Bosw 1 each PO BID 05/09/14 [Osteo Bi-Flex Caplet] Insulin NPH Human [Humulin N Pen] 60 units SC DAILY@0730 05/09/14 Insulin Regular, Human [Novolin R] 20 unit SC BIDAC 05/09/14 Aspirin [Aspirin, Baby] 81 mg PO DAILY@0800 08/26/18 Budesonide/Formoterol 160/4.5 1 puff INHALATION BID PRN PRN 08/26/18 [Symbicort 160/4.5 Mcg Inhaler (SP)] Paroxetine HCl 30 mg PO DAILY 08/26/18 Amlodipine [Norvasc] 10 mg PO DAILY #0 08/28/18 Tizanidine HCl [Zanaflex] 2 mg PO Q8H PRN PRN #20 tab 08/28/18 Insulin NPH Human [Humulin N Pen] 40 units SC QHS 07/10/20 cycloBENZAPRine HCl 5 mg PO TID PRN PRN tab 07/15/20 [Cyclobenzaprine HCl] Cetirizine HCl [Zyrtec] 10 mg PO DAILY 07/22/20 Cholecalciferol (Vitamin D3) 1,000 unit PO DAILY 07/22/20 [Vitamin D3] Lamotrigine [Lamictal] 300 mg PO BID 07/22/20 Phenobarbital 30 mg PO DAILY 07/22/20 Phenobarbital 60 mg PO DAILY 07/22/20 Amoxicillin [Amoxil] 500 mg PO Q8 #5 cap 07/29/20 Aspirin E.C. [Ecotrin] 325 mg PO DAILY@0800 #14 tab 07/29/20 Surgical History: cholecystectomy, hysterectomy, - - 2 c-sections Smoking Status: Never smoker - *Family History Paternal History Items: Cancer Maternal History Items: Cancer - Physical Exam Vitals/I&O's: Vital Signs Temp Pulse Resp BP Pulse Ox 98.1 F 91 20 H 145/88 H 96 11/25/20 16:28 11/25/20 18:29 11/25/20 18:29 11/25/20 18:29 11/25/20 18:29 Oxygen Delivery Method Room Air Weight: 262 lb 5.601 oz Body Mass Index (BMI) 42.3 Finger Stick Blood Glucose 198 Intake and Output for Last 24 Hours 11/23/20 11/24/20 11/25/20 23:59 23:59 23:59 Intake Total 1000 / 1000 Balance 1000 / 1000 Laboratory Results 11/25/20 17:13: WBC 19.7 H, RBC 4.65, Hgb 13.4, Hct 39.6, MCV 85.2, MCH 28.8, MCHC 33.8, RDW Std Deviation 40.7, RDW Coeff of Linda 13.4, Plt Count 456 H, MPV 11.1, Immature Gran % (Auto) 0.700, Neut % (Auto) 84.4 H, Lymph % (Auto) 9.2 L, [place] % (Auto) 5.5, Eos % (Auto) 0.0, Baso % (Auto) 0.2, Absolute Neuts (auto) 16.6 H, Absolute Lymphs (auto) 1.80, Nucleated RBC % 0 11/25/20 17:13: Sodium 134 L, Potassium 4.0, Chloride 100, Carbon Dioxide 24.0, Anion Gap 10, BUN 25 H, Creatinine 1.08 H, Estim Creat Clear Calc 45.37, Est GFR (MDRD) Af Amer 64, Est GFR (MDRD) Non-Af 53 L, BUN/Creatinine Ratio 23.1 H, Glucose 337 H, Calcium 9.2, Total Bilirubin 0.80, AST 46 H, ALT 19, Alkaline Phosphatase 162 H, Total Creatine Kinase 549 H, Troponin I 0.212 H, Total Protein 7.5, Albumin 3.1 L, Globulin 4.4 H, Albumin/Globulin Ratio 0.7 L 11/25/20 18:25: Urine Color Pending, Urine Clarity Pending, Urine pH Pending, Ur Specific [place] Pending, Urine Protein Pending, Urine Glucose (UA) Pending, Urine Ketones Pending, Urine Occult Blood Pending, Urine Nitrite Pending, Urine Bilirubin Pending, Urine Urobilinogen Pending, Ur Leukocyte Esterase Pending, Urine RBC Pending, Urine WBC Pending, Ur Squamous Epith Cells Pending, Urine Bacteria Pending, Urine Mucus Pending
--- NOTE | 2020-11-25 18:51 | HP.PCM_ITS ---
Problem List (1) Hypertension Status: Chronic (2) Diabetes mellitus type 2 in obese Status: Chronic (3) Dyslipidemia Status: Chronic (4) Chronic stable Asthma Status: Chronic History of Present Illness Date of Admission: 11/25/20 Chief Complaint: Frequent falls. The patient is a 70 year old F with past medical history as mentioned above presented to the emergency room because of frequent falls. Patient is poor informant and when asked direct questions, she complains of most of everything. She stated that she came in today because she kept falling at home. She mentioned that has been falling over the last 4 to 5 days. She mentioned that 2 days ago, she was on the toilet, toilet seat was loose and she fell from the to ilet hurting her head and chest. Initially, she denied any chest pain or shortness of breath. She denied any dizziness or lightheadedness. When I asked her doctor questions, she complained of dizziness and vertigo. Also, she said yes when I asked her about any chest pain. Patient is unreliable. Denied cough or sputum production. She denied urinary symptoms. She denied fever or chills. She will history of type 2 diabetes mellitus which was uncontrolled, has been on insulin and her A1c was 9.6% on July,. She had a history of hypertension and she has been on Norvasc. She will history of asthma and she has been on Pulmicort and albuterol nebulizer as needed. In the emergency department, initial blood pressure was elevated but improved, other vital signs were stable. Routine blood work was remarkable for significant leukocytosis, BUN of 25, creatinine is 1.08. Blood glucose was 337. LFT was unremarkable. CPK was 549. EKG revealed sinus rhythm without evidence of acute hemic changes. Troponin was 0.212. CT scan brain showed no acute infarct or hemorrhage. Chest and rib x-ray revealed old healed fracture of the right seventh rib, no acute findings. Urinalysis pending. She is being admitted for frequent falls, debility, dehydration and abnormal cardiac enzymes. Past Medical History Past Medical History (Chronic Problems): Chronic Problems (Last Reviewed 07/22/20 @ 21:[address] Ranjeet Richardson MD) Hypertension (Chronic) Diabetes mellitus type 2 in obese (Chronic) Dyslipidemia (Chronic) Chronic stable Asthma (Chronic) Medical History: Medical History (Last Reviewed 12/11/20 @ 21:[address] Ranjeet Richardson MD) Diabetes mellitus E11.9 Diabetes mellitus E11.9 Allergies ciprofloxacin Allergy (Verified 11/25/20 16:42) Unknown hydrochlorothiazide Allergy (Verified 11/25/20 16:42) Unknown pentazocine [From Talwin] Allergy (Verified 11/25/20 16:42) Unknown Home Medications: Ambulatory Orders Medication Instructions Recorded Omeprazole [Prilosec] 20 mg PO BID 12/19/13 Simvastatin [Zocor] 40 mg PO QHS 12/19/13 Topiramate [Topamax] 50 mg PO BID 12/19/13 Albuterol Aerosols [Ventolin 2.5 mg INHALATION Q4H PRN PRN 05/09/14 Aerosols] Glucosam/Kiran-Msm1/C/Cricket/Bosw 1 each PO BID 05/09/14 [Osteo Bi-Flex Caplet] Insulin NPH Human [Humulin N Pen] 60 units SC DAILY@0730 05/09/14 Insulin Regular, Human [Novolin R] 20 unit SC BIDAC 05/09/14 Aspirin [Aspirin, Baby] 81 mg PO DAILY@0800 08/26/18 Budesonide/Formoterol 160/4.5 1 puff INHALATION BID PRN PRN 08/26/18 [Symbicort 160/4.5 Mcg Inhaler (SP)] Paroxetine HCl 30 mg PO DAILY 08/26/18 Amlodipine [Norvasc] 10 mg PO DAILY #0 08/28/18 Tizanidine HCl [Zanaflex] 2 mg PO Q8H PRN PRN #20 tab 08/28/18 Insulin NPH Human [Humulin N Pen] 40 units SC QHS 07/10/20 cycloBENZAPRine HCl 5 mg PO TID PRN PRN tab 07/15/20 [Cyclobenzaprine HCl] Cetirizine HCl [Zyrtec] 10 mg PO DAILY 07/22/20 Cholecalciferol (Vitamin D3) 1,000 unit PO DAILY 07/22/20 [Vitamin D3] Lamotrigine [Lamictal] 300 mg PO BID 07/22/20 Phenobarbital 30 mg PO DAILY 07/22/20 Phenobarbital 60 mg PO DAILY 07/22/20 Amoxicillin [Amoxil] 500 mg PO Q8 #5 cap 07/29/20 Aspirin E.C. [Ecotrin] 325 mg PO DAILY@0800 #14 tab 07/29/20 Surgical History: cholecystectomy, hysterectomy, - - 2 c-sections Psychiatric History: Depression Lives: Alone Smoking Status: Never smoker Alcohol: None Drugs: None - *Family History Paternal History Items: Cancer Maternal History Items: Cancer Review of Systems Constitutional: Reports: Weakness. Denies: Anorexia, Chills, Fever Eyes: Denies: Blurred vision, Conjunctivae Inflammation, Double vision, Redness HEENT: Denies: Difficulty Hearing, Ear Pain, Eye Pain, Nasal Congestion, Sore Throat Cardiovascular: Denies: Chest Pain, Chest Pressure, Palpitations, Syncope Respiratory: Denies: Cough, Pleuritic Pain, Shortness of Breath, Sputum production, Wheezing Gastrointestinal: Reports: Nausea. Denies: Abdominal Pain, Constipation, Diarrhea, Vomiting Genitourinary: Denies: Dysuria, Frequency, Hematuria Musculoskeletal: Denies: Arm Pain, Back Pain, Foot Pain Skin: Denies: Dryness, Rash Neurological: Denies: Balance problems, Double vision, Slurred speech, Confusion, Headaches, Incoordination Psychiatric: Reports: Depression. Denies: Anxiety Endocrine: Denies: Change in Body Habitus, Polydipsia, Polyuria VTE Information - Inpt Only VTE Present on Admission: No VTE Mechan Device Prophylaxis: None VTE Pharm Prophylaxis ordered?: Yes - Physical Exam Vitals/I&O's: Vital Signs Temp Pulse Resp BP Pulse Ox 98.1 F 91 20 H 145/88 H 96 11/25/20 16:28 11/25/20 18:29 11/25/20 18:29 11/25/20 18:29 11/25/20 18:29 Oxygen Delivery Method Room Air Weight: 262 lb 5.601 oz Body Mass Index (BMI) 42.3 Finger Stick Blood Glucose 198 Intake and Output for Last 24 Hours 11/23/20 11/24/20 11/25/20 23:59 23:59 23:59 Intake Total 1000 / 1000 Balance 1000 / 1000 General: Alert, Oriented x3, Cooperative, No apparent distress HEENT: Atraumatic, PERRLA, EOMI, Normocephalic Oral: Moist Mucosa, No Gingival or Mucosal Lesions/ Ulcerations Neck: Supple, No JVD, Negative Carotid Bruits, Trachea Midline, Thyroid Normal Size and Texture Lungs: Clear to auscultation, No rhonchi, No wheeze, No rales, Diminished Cardiovascular: Regular rate, Regular Rhythm, Normal S1, Normal S2, PMI Normal Abdomen: Bowel Sounds Present, Soft, Non Tender, Non-Distended, No Hepato- splenomegaly, Obese Extremities: No clubbing, No cyanosis, No edema Skin: No rashes, No breakdown Lymphatic: No Cervical, Supraclavicular, or Inguinal Adenopathy Neurological: Cranial nerves II-XII grossly intact, Motor Exam 5/5 strength throughout Psych/Mental Status: Normal Affect, Appropriate, Alert and oriented to time, place, person, mood and affect Laboratory Results 11/25/20 17:13: WBC 19.7 H, RBC 4.65, Hgb 13.4, Hct 39.6, MCV 85.2, MCH 28.8, MCHC 33.8, RDW Std Deviation 40.7, RDW Coeff of Linda 13.4, Plt Count 456 H, MPV 11.1, Immature Gran % (Auto) 0.700, Neut % (Auto) 84.4 H, Lymph % (Auto) 9.2 L, [place] % (Auto) 5.5, Eos % (Auto) 0.0, Baso % (Auto) 0.2, Absolute Neuts (auto) 16.6 H, Absolute Lymphs (auto) 1.80, Nucleated RBC % 0 11/25/20 17:13: Sodium 134 L, Potassium 4.0, Chloride 100, Carbon Dioxide 24.0, Anion Gap 10, BUN 25 H, Creatinine 1.08 H, Estim Creat Clear Calc 45.37, Est GFR (MDRD) Af Amer 64, Est GFR (MDRD) Non-Af 53 L, BUN/Creatinine Ratio 23.1 H, Glucose 337 H, Calcium 9.2, Total Bilirubin 0.80, AST 46 H, ALT 19, Alkaline Phosphatase 162 H, Total Creatine Kinase 549 H, Troponin I 0.212 H, Total Protein 7.5, Albumin 3.1 L, Globulin 4.4 H, Albumin/Globulin Ratio 0.7 L 11/25/20 18:25: Urine Color Pending, Urine Clarity Pending, Urine pH Pending, Ur Specific [place] Pending, Urine Protein Pending, Urine Glucose (UA) Pending, Urine Ketones Pending, Urine Occult Blood Pending, Urine Nitrite Pending, Urine Bilirubin Pending, Urine Urobilinogen Pending, Ur Leukocyte Esterase Pending, Urine RBC Pending, Urine WBC Pending, Ur Squamous Epith Cells Pending, Urine Bacteria Pending, Urine Mucus Pending Clinical Impression(s) from Imaging Studies Brain CT 11/25/20 16:46 IMPRESSION: Mild periventricular white matter ischemic changes. No evidence for acute intracranial bleed.. Electronically Signed: Everton Abraham MD at 18:07 EDT , Service support , Ribs w/Chest X-Ray 11/25/20 17:48 IMPRESSION: RIBS: Old healed fracture of the right seventh rib. No definitive evidence for acute fracture.. CHEST: No acute cardiopulmonary pathology Electronically Signed: Everton Abraham MD at 18:27 EDT , Service support , Assessment/Plan This is a 70 years old female patient presented to the emergency room because of frequent falls, found to have abnormal cardiac enzymes as well as leukocytosis and dehydration and she is being admitted for evaluation and treatment. #1 abnormal cardiac enzymes: EKG reviewed, no acute segment changes. Patient had no history of CAD. Initially, she denied any chest pain. When I asked her later about chest pain, she did complain of chest pain but it was pleuritic pain. Chest x-ray showed no acute findings as above. Plan: Admit to PCU observation, cardiac monitoring, serial enzymes, repeat EKG tomorrow morning, 2D echocardiogram, IV fluids, Tylenol as needed, Zofran as needed, repeat CBC and BMP tomorrow morning, PT OT evaluation and treatment. #2 frequent falls/physical debility/functional decline: Patient lives at home alone, has been falling frequently according to her. CT scan brain showed no acute findings. Plan for PT OT evaluation and treatment, patient may need placement to a nursing home facility. #3 leukocytosis: Chest x-ray without acute findings. Urinalysis pending. Could be reactive leukocytosis. Plan: IV fluids, awaiting urinalysis, repeat CBC tomorrow morning. At this time, no indication for IV antibiotics. #4 dehydration: Indicated by slight elevated BUN and creatinine. CPK is also 549. Plan: Gentle IV fluids for hydration, input output chart, repeat BMP and CPK tomorrow morning. #5 type 2 diabetes mellitus: Uncontrolled. Plan for ADA diet, Accu-Cheks, insulin sliding scale, continue home doses of Humulin and Novolin insulin on her medication list updated. #6 hypertension: Initial blood pressure was elevated, improved. Plan to continue Norvasc, start IV hydralazine as needed. #7 bronchial asthma: Clinically stable, on room air. Plan for DuoNeb every 6 hours, albuterol as needed. #8 hyperlipidemia: Continue statins. #9 DVT prophylaxis: Subcu Lovenox. This note was generated with [employer] dictation software. It may contain incorrect words, spelling, and punctuation that were not noted in checking the note before signing. OBSV E&M: 63303 Initial observation care L3
[2020-11-25 19:01] LABS: Color, Urine Yellow (Yellow); Glucose, Dipstick 1000 mg/dl (Normal); Ketone-Dipstick 50 mg/dl (Negative); Leukocyte Esterase-Dipstick Negative /ul (Negative); Nitrite-Dipstick Negative (Negative); Occult Blood-Urine 150 /ul (Negative); Protein-Dipstick 500 mg/dl (Negative); Specific Gravity, Urine 1.015 (1.002-1.030); Urine Bilirubin Dipstick Negative (Negative); Urine Clarity Clear (Clear); Urine Urobilinogen Normal (Normal)
--- NOTE | 2020-11-25 19:03 | ECHOCS_ITS ---
Reason For Study: Abn EKG Procedure This was a 2D Doppler, Color Flow transthoracic echocardiogram. The study was technically difficult. Exam performed portable in patient room. Left Ventricle Normal left ventricle. The estimated ejection fraction is EF 50-55% with apical Hypokinesia %. Right Ventricle Normal right ventricle. Normal systolic function. Atria Normal left atrium. Normal right atrium. Intact atrial septum. Mitral Valve The mitral valve is structurally normal. No prolapse or stenosis seen. No mitral valve insufficiency. Tricuspid Valve Normal tricuspid valve. No tricuspid valve insufficiency. Aortic Valve Normal aortic valve. Pulmonic Valve The pulmonic valve is not well visualized. Great Vessels Normal aortic root. Pericardium/Pleural No pericardial effusion. Medication Diluted definity 2ml given slow IV push to enhance endocardial definition. MMode/2D Measurements & Calculations Ao root diam: 3.4 cm LAV(MOD-bp): 55.4 ml LA A4 area: 19.1 cm2 LAV(MOD-bp) Indexed: 24.7 ml/m2 LAV(MOD-sp2): 60.0 ml LAV(MOD-sp4): 51.5 ml LA dimension(2D): 4.3 cm RA A4 area: 14.1 cm2 Doppler Measurements & Calculations MV E max dwight: 128.9 cm/sec Lat Peak E' Dwight: 7.2 cm/sec Med Peak E' Dwight: 6.1 cm/sec MV A max dwight: 186.5 cm/sec E/E' lat: 18.0 E/E' med: 21.0 MV E/A: 0.69 MV V2 max: 200.8 cm/sec Ao V2 max: 163.3 cm/sec LV V1 max: 130.3 cm/sec MV max P.1 mmHg Ao max P.7 mmHg LV V1 max P.8 mmHg MV V2 mean: 135.5 cm/sec MV mean P.9 mmHg MV V2 VTI: 32.2 cm PA V2 max: 152.0 cm/sec ECHO/Echo Complete W/ Contrast Interpretation Summary The estimated ejection fraction is EF 50-55% with apical Hypokinesia %. Ordering Physician: Anabell Zhu Referring Physician: Yovanny Ruano Performed By: Dolores Pineda RDCS
[2020-11-25 19:12] LABS: Hyaline Cast 0-5 SEEN /lpf (0-5); Red Blood Cells-Urine 0-5 SEEN /hpf (0-5)
[2020-11-25 19:13] LABS: White Blood Cells 0-5 SEEN /hpf (0-5)
[2020-11-25] MEDS: Ipratropium/Albuterol Sulfate 3 ML AMPUL.NEB INHALATION (19:52)
[2020-11-25] MEDS: Insulin Lispro 100 UNIT/ML INSULN.PEN SC (20:09)
[2020-11-25] MEDS: 0.9% Normal Saline 1,000 ML 75 ML IV (20:09)
[2020-11-25] MEDS: 0.9% Saline Lock 10 ML Syringe IV ×2 (20:09→22:43)
[2020-11-25 20:15] LABS: Bedside Glucose 250 mg/dL (70-110)
[2020-11-25 20:37] LABS: International Normalized Ratio 1.1
--- NOTE | 2020-11-25 21:30 | EKG12_ITS ---
Test Reason : CP Blood Pressure : / mmHG Vent. Rate : 088 BPM Atrial Rate : 088 BPM P-R Int : 192 ms QRS Dur : 126 ms QT Int : 426 ms P-R-T Axes : 044 -58 087 degrees QTc Int : 515 ms Normal sinus rhythm Left axis deviation Non-specific intra-ventricular conduction block Abnormal ECG Confirmed by BECCA ALEJANDRO, GEOVANNA ([id number]), news editor CAILIN SWAN ([id number]) on 11/30/2020 1:18:42 PM Referred By: DR STATON Confirmed By:GEOVANNA HUDSON MD
[2020-11-25] MEDS: Nitroglycerin (INPATIENT USE) 0.4 MG TAB.SUBL SL ×2 (22:00→23:17)
[2020-11-25] MEDS: Acetaminophen 325 MG Tablet 650 MG PO (22:09)
--- NOTE | 2020-11-25 23:17 | NURSING ---
PATIENT CALLED OUT STATING CP IS BACK, HURTS MOSTLY WHEN SHE BREATHS IN, STATES NITRO HELPED THE FIRST TIME SHE GOT IT.
[2020-11-26] VITALS (14 sets, daily range): BP systolic 139–179; BP diastolic 53–88; PULSE 82–103; RESP 16–20; TEMP 36.6–37.2; O2SAT 94–97
--- NOTE | 2020-11-26 01:57 | PCM.PN.BLA ---
Progress Note Noted the patient is confused and unable to draw blood. Nurses asking for PICC line. Confusion likely secondary to sundowning. No PICC for now. Try labs in a.m. if labs still unsuccessful in a.m. and patient is clinically improving consider foregoing labs. Push fluids. Patient has not voided. Order to bladder scan and if patient has more than 400 MLS patient can be straight cath. STROKE Vital Signs/Narrative: Vital Signs Temp Pulse Resp BP BP Pulse Ox 11/25/20 23:34 89 160/60 H 11/25/20 23:17 86 179/65 H 11/25/20 22:14 97.8 F 89 18 162/68 H 96 11/25/20 22:00 90 192/81 H
--- NOTE | 2020-11-26 04:10 | PCM.PN.BLA ---
Progress Note Nurse reports that patient still complains of chest pain. Patient has received nitroglycerin sublingual x2 and each time chest pain improves. Reportedly chest pain worsens with taking a deep breath. Will order nitroglycerin paste on chest because of improvement with nitroglycerin sublingual. There is difficulty in getting blood work. Troponin was elevated and it has mildly decreased. In a.m. try getting 3rd troponin again. Aspirin 81 mg daily ordered. Received aspirin 325 mg at the ED. STROKE Vital Signs/Narrative: Vital Signs Temp Pulse Resp BP Pulse Ox 11/26/20 02:52 84 11/26/20 02:23 99 F 89 16 148/67 H 95
[2020-11-26] MEDS: Nitroglycerin Oint 1 INCH PACKET TD ×3 (04:18→18:01)
[2020-11-26] MEDS: Acetaminophen 325 MG Tablet 650 MG PO ×2 (04:18→22:14)
[2020-11-26] MEDS: 0.9% Saline Lock 10 ML Syringe IV ×2 (04:18→22:12)
[2020-11-26] MEDS: hydrALAZINE 20 MG/ML Vial 10 MG IV (05:25)
--- NOTE | 2020-11-26 05:55 | EKG12_ITS ---
Test Reason : AM EKG Blood Pressure : / mmHG Vent. Rate : 088 BPM Atrial Rate : 088 BPM P-R Int : 198 ms QRS Dur : 124 ms QT Int : 442 ms P-R-T Axes : 052 -57 083 degrees QTc Int : 534 ms Normal sinus rhythm Left anterior fascicular block Nonspecific ST abnormality Abnormal ECG Confirmed by BECCA ALEJANDRO, GEOVANNA ([id number]), cook dessert CAILIN SWAN ([id number]) on 11/30/2020 1:10:56 PM Referred By: DEONDRE Confirmed By:GEOVANNA HUDSON MD
[2020-11-26 06:32] LABS: Absolute Lymphocyte Count 2.89 X10^3/uL (0.83-4.51); Absolute Neutrophil Count 12.2 X10^3/uL (2.0-7.7); Basophil# 0.07 X10^3/uL; Basophil% 0.4 % (0-1); Eosinophil# 0.06 X10^3/uL; Eosinophils% 0.4 % (0-5); Hematocrit 36.1 % (37-47); Hemoglobin 12.5 g/dL (12.0-15.0); Lymphocyte # 2.89 X10^3/ul (0.83-4.51); Lymphocyte % 17.6 % (19-41); Mean Corp Hgb Conc 34.6 g/dL (32-36); Mean Corpuscular Hgb 29.1 pg (27.0-32.0); Mean Corpuscular Volume 84.1 fL (81-99); Mean Platelet Vol. 10.8 fl (6.2-12.0); Monocyte# 1.19 X10^3/uL; Monocyte% 7.2 % (0-10); NRBC Flagged by Analyzer 0 % (0-5); Neutrophil # 12.16 X10^3/uL (2.7-7.7); Platelet Count 398 K/mm3 (150-450); RBC Distribution Width CV 13.5 % (11.6-14.6); RBC Distribution Width SD 40.9 fl (35.1-43.9); Red Blood Count 4.29 M/mm3 (4.2-5.4); White Blood Count 16.4 K/mm3 (4.4-11.0)
[2020-11-26 06:35] LABS: Bedside Glucose 169 mg/dL (70-110)
[2020-11-26 06:55] LABS: Anion Gap 8 (5-15); BUN 18 mg/dL (7-18); BUN/Creat Ratio 23.2 RATIO (10-20); CPK Total, Creatine Kinase 224 U/L (26-192); Calcium,Total 8.6 mg/dL (8.5-10.1); Chloride 102 mmol/L (98-107); Creatinine, Serum 0.78 mg/dL (0.55-1.02); EST Glomerular Filtration Rate 78 mL/min (>60); Est Glom Filt Rate - Afr Amer 94 mL/min (>60); Glucose 186 mg/dL (74-106); Potassium 3.5 mmol/L (3.5-5.1); Sodium Level 134 mmol/L (136-145)
[2020-11-26] MEDS: Ipratropium/Albuterol Sulfate 3 ML AMPUL.NEB INHALATION ×2 (07:08→19:04)
[2020-11-26] MEDS: Enoxaparin 30 MG/0.3 ML Syringe SC (10:32)
[2020-11-26] MEDS: Aspirin 81 MG TAB.CHEW PO (10:32)
[2020-11-26] MEDS: Insulin Lispro 100 UNIT/ML INSULN.PEN SC ×3 (11:48→22:12)
[2020-11-26 11:56] LABS: Bedside Glucose 269 mg/dL (70-110)
--- NOTE | 2020-11-26 12:41 | PN_ITS ---
Patient Problems: Active and Suspected Problems (Last Reviewed 07/22/20 @ 21:[address] Ranjeet Richardson MD) Fall (Acute) Elevated troponin (Acute) Subjective: Continues to have chest pain however this is noncardiac as it is reproduced on palpation. She has been coughing a lot and has some pain with inspiration and with coughing. Vitals/I&O's: Vital Signs Temp Pulse Resp BP Pulse Ox 98.5 F 94 16 146/58 H 96 11/26/20 08:05 11/26/20 08:05 11/26/20 08:05 11/26/20 08:05 11/26/20 08:05 Oxygen Flow Rate (L/min) 2 Oxygen Delivery Method Room Air Weight: 258 lb Body Mass Index (BMI) 41.6 Finger Stick Blood Glucose 198 Intake and Output for Last 24 Hours 11/24/20 11/25/20 11/26/20 23:59 23:59 23:59 Intake Total 1000 / 1440 1880 / 1880 Output Total 50 / 50 Balance 1000 / 1440 1830 / 1830 General: Alert, Oriented x3, Cooperative, No apparent distress HEENT: Atraumatic, PERRLA, EOMI, Normocephalic Oral: Moist Mucosa Neck: Supple, No JVD Lungs: Clear to auscultation, Normal air movement, No rhonchi, No wheeze, No rales Cardiovascular: Regular rate, Regular Rhythm, Normal S1, Normal S2, No murmurs Abdomen: Soft, Non Tender, Non-Distended, No Hepato-splenomegaly Extremities: No edema, Capillary Refill Less than 3 Seconds Skin: No rashes, No breakdown Neurological: Neuro grossly intact, Sensory exam intact to light touch and pain Psych/Mental Status: Normal Affect, Appropriate Laboratory Results 11/25/20 17:13: WBC 19.7 H, RBC 4.65, Hgb 13.4, Hct 39.6, MCV 85.2, MCH 28.8, MCHC 33.8, RDW Std Deviation 40.7, RDW Coeff of Linda 13.4, Plt Count 456 H, MPV 11.1, Immature Gran % (Auto) 0.700, Neut % (Auto) 84.4 H, Lymph % (Auto) 9.2 L, Caldwell % (Auto) 5.5, Eos % (Auto) 0.0, Baso % (Auto) 0.2, Absolute Neuts (auto) 16.6 H, Absolute Lymphs (auto) 1.80, Nucleated RBC % 0 11/25/20 17:13: Sodium 134 L, Potassium 4.0, Chloride 100, Carbon Dioxide 24.0, Anion Gap 10, BUN 25 H, Creatinine 1.08 H, Estim Creat Clear Calc 45.37, Est GFR (MDRD) Af Amer 64, Est GFR (MDRD) Non-Af 53 L, BUN/Creatinine Ratio 23.1 H, Glucose 337 H, Calcium 9.2, Total Bilirubin 0.80, AST 46 H, ALT 19, Alkaline Phosphatase 162 H, Total Creatine Kinase 549 H, Troponin I 0.212 H, Total Protein 7.5, Albumin 3.1 L, Globulin 4.4 H, Albumin/Globulin Ratio 0.7 L 11/25/20 18:25: Urine Color Yellow, Urine Clarity Clear, Urine pH 6.0, Ur Specific Garfield 1.015, Urine Protein 500 H, Urine Glucose (UA) 1000 H, Urine Ketones 50 H, Urine Occult Blood 150 H, Urine Nitrite Negative, Urine Bilirubin Negative, Urine Urobilinogen Normal, Ur Leukocyte Esterase Negative, Urine RBC 0-5 SEEN, Urine WBC 0-5 SEEN, Ur Squamous Epith Cells 0 SEEN, Urine Bacteria 0 SEEN, Hyaline Casts 0-5 SEEN, Urine Mucus 0 SEEN 11/25/20 20:00: PT 14.0, INR 1.1 11/25/20 20:08: POC Glucose 250 H 11/25/20 22:35: Troponin I 0.188 H 11/26/20 06:15: WBC 16.4 H, RBC 4.29, Hgb 12.5, Hct 36.1 L, MCV 84.1, MCH 29.1, MCHC 34.6, RDW Std Deviation 40.9, RDW Coeff of Linda 13.5, Plt Count 398, MPV 10.8, Immature Gran % (Auto) 0.400, Neut % (Auto) 74.0 H, Lymph % (Auto) 17.6 L, Caldwell % (Auto) 7.2, Eos % (Auto) 0.4, Baso % (Auto) 0.4, Absolute Neuts (auto) 12.2 H, Absolute Lymphs (auto) 2.89, Nucleated RBC % 0 11/26/20 06:15: Sodium 134 L, Potassium 3.5, Chloride 102, Carbon Dioxide 24.0, Anion Gap 8, BUN 18, Creatinine 0.78, Estim Creat Clear Calc 49.00, Est GFR (MDRD) Af Amer 94, Est GFR (MDRD) Non-Af 78, BUN/Creatinine Ratio 23.2 H, Glucose 186 H, Calcium 8.6, Total Creatine Kinase 224 H, Troponin I 0.143 H 11/26/20 06:30: POC Glucose 169 H 11/26/20 11:47: POC Glucose 269 H Current Medications Acetaminophen (Acetaminophen 325 Mg Tablet) 650 mg PO Q6H PRN PRN PRN Reason: Pain Score 1-10/Temp > 100.7 F Last Admin: 11/26/20 04:18 Dose: 650 mg Documented by: Albuterol/Ipratropium (Ipratropium/Albuterol Sulfate 3 Ml Ampul.Neb) 3 ml INHALATION Q6H.RT [facility] Last Admin: 11/26/20 07:08 Dose: 3 ml Documented by: Aspirin (Aspirin 81 Mg Tab.Chew) 81 mg PO DAILY@0800 [facility] Last Admin: 11/26/20 10:32 Dose: 81 mg Documented by: Enoxaparin Sodium (Enoxaparin 30 Mg/0.3 Ml Syringe) 30 mg SC DAILY [facility] Last Admin: 11/26/20 10:32 Dose: 30 mg Documented by: Hydralazine HCl (Hydralazine 20 Mg/Ml Vial) 10 mg IV Q6H PRN PRN PRN Reason: for SBP>160 Last Admin: 11/26/20 05:25 Dose: 10 mg Documented by: Insulin Human Lispro (Insulin Lispro 100 Unit/Ml Insuln.Pen) 0 unit SC [facility]; Protocol Last Admin: 11/26/20 11:48 Dose: 3 unit Documented by: Nitroglycerin (Nitroglycerin Oint 1 Inch Packet) 1 inch TD Q6 [facility] Last Admin: 11/26/20 11:49 Dose: 1 inch Documented by: Ondansetron HCl (Ondansetron 4 Mg/2 Ml Vial) 4 mg IV Q8H PRN PRN PRN Reason: NAUSEA/VOMITING Last Admin: 11/25/20 22:43 Dose: 4 mg Documented by: Senna/Docusate Sodium (Senna/Docusate Sodium 1 Tablet) 2 tablet PO BID PRN PRN PRN Reason: Constipation Sodium Chloride (0.9% Saline Lock 10 Ml Syringe) 10 - 40 ml IV UD PRN PRN Reason: SALINE FLUSH Last Admin: 11/26/20 04:18 Dose: 20 ml Documented by: Throat Lozenges (Benzocaine/Menthol 1 Lozenge) 1 lozenge MUCOUS MEM Q2H PRN PRN PRN Reason: SORE THROAT Medical Necessity - Tobacco Use Smoking Status: Never smoker Tobacco Use: Non-smoker Assessment/Plan All Active Problems (Last Reviewed 07/22/20 @ 21:[address] Ranjeet Richardson MD) Fall (Acute) Elevated troponin (Acute) 1. Generalized weakness and debility with frequent falls and inability to complete ADLs -PT/OT for evaluation -Case management consult for possible placement 2. Abnormal cardiac enzymes/HTN/HLD -Troponins are trending down EKG was unremarkable -For chest pain is reproducible with palpation and she states that she did fall onto her left chest during one of her falls -Echo pending -Continue with her home blood pressure medications as well as her statins 3. DM 2 -Placed on sliding scale insulin Accu-Cheks AC at bedtime -We will adjust as necessary 4. Leukocytosis -Reactive, UA was unremarkable for infection chest x-ray was normal -Improving without intervention Will evaluate and restart her home meds once updated DVT: Lovenox OBSV E&M: [id number] Subsequent observation care L2
[2020-11-26] MEDS: BENZOCAINE/MENTHOL 1 LOZENGE MUCOUS MEM (13:13)
--- NOTE | 2020-11-26 13:50 | CASEMGMT ---
SOCIAL WORK Spoke with patient's daughter Valentina regarding discharge planning. Per Valentina, patient lives home alone and nephew is able to check on patient daily. Valentina reports family does not wish for patient to discharge to [facility] at this time due [facility]. [facility]. Informed SW will be following up for discharge planning on Saturday. Daughter in agreement with plan. Plan: SW to follow up on Saturday Sherrill Meléndez, JUANITA, QA TESTER
[2020-11-26] MEDS: Calcium Carbonate 500 MG Tablet PO ×2 (16:28→22:15)
[2020-11-26 16:36] LABS: Bedside Glucose 309 mg/dL (70-110)
[2020-11-26] MEDS: Lisinopril 10 MG Tablet PO (22:12)
[2020-11-26 22:25] LABS: Bedside Glucose 352 mg/dL (70-110)
[2020-11-27] VITALS (16 sets, daily range): BP systolic 144–195; BP diastolic 64–97; PULSE 91–123; RESP 16–20; TEMP 36.2–36.8; O2SAT 95–99
[2020-11-27] MEDS: Nitroglycerin Oint 1 INCH PACKET TD ×4 (00:34→17:27)
[2020-11-27 06:03] LABS: Absolute Lymphocyte Count 2.26 X10^3/uL (0.83-4.51); Absolute Neutrophil Count 8.7 X10^3/uL (2.0-7.7); Basophil# 0.07 X10^3/uL; Basophil% 0.6 % (0-1); Eosinophil# 0.08 X10^3/uL; Eosinophils% 0.7 % (0-5); Hematocrit 37.8 % (37-47); Hemoglobin 13.1 g/dL (12.0-15.0); Lymphocyte # 2.26 X10^3/ul (0.83-4.51); Lymphocyte % 18.6 % (19-41); Mean Corp Hgb Conc 34.7 g/dL (32-36); Mean Corpuscular Hgb 29.4 pg (27.0-32.0); Mean Corpuscular Volume 84.9 fL (81-99); Mean Platelet Vol. 11.2 fl (6.2-12.0); Monocyte# 0.93 X10^3/uL; Monocyte% 7.7 % (0-10); NRBC Flagged by Analyzer 0 % (0-5); Neutrophil % 71.7 % (47-70); Platelet Count 438 K/mm3 (150-450); RBC Distribution Width SD 41.6 fl (35.1-43.9); Red Blood Count 4.45 M/mm3 (4.2-5.4); White Blood Count 12.1 K/mm3 (4.4-11.0)
[2020-11-27 06:15] LABS: Anion Gap 9 (5-15); BUN 15 mg/dL (7-18); BUN/Creat Ratio 21.3 RATIO (10-20); Calcium,Total 9.1 mg/dL (8.5-10.1); Chloride 99 mmol/L (98-107); EST Glomerular Filtration Rate 87 mL/min (>60); Est Glom Filt Rate - Afr Amer 105 mL/min (>60); Glucose 346 mg/dL (74-106); Potassium 3.2 mmol/L (3.5-5.1); Sodium Level 133 mmol/L (136-145)
[2020-11-27] MEDS: hydrALAZINE 20 MG/ML Vial 10 MG IV ×3 (06:31→21:39)
[2020-11-27] MEDS: Insulin Lispro 100 UNIT/ML INSULN.PEN SC ×4 (06:33→21:42)
[2020-11-27 07:00] LABS: Bedside Glucose 343 mg/dL (70-110)
[2020-11-27] MEDS: Aspirin 81 MG TAB.CHEW PO (08:52)
[2020-11-27] MEDS: Pantoprazole Sodium 20 MG Tablet PO (08:52)
[2020-11-27] MEDS: Enoxaparin 30 MG/0.3 ML Syringe SC (08:52)
[2020-11-27] MEDS: Lisinopril 10 MG Tablet PO ×2 (08:52→21:41)
[2020-11-27] MEDS: Potassium Chloride Oral Tablet 20 MEQ 40 MEQ PO (08:56)
[2020-11-27] MEDS: Acetaminophen 325 MG Tablet 650 MG PO (09:04)
[2020-11-27] MEDS: Senna/Docusate Sodium 1 Tablet 2 TABLET PO (09:05)
[2020-11-27] MEDS: 0.9% Saline Lock 10 ML Syringe IV ×3 (09:07→21:44)
[2020-11-27] MEDS: Ondansetron 4 MG/2 ML Vial IV (09:07)
[2020-11-27 11:35] LABS: Bedside Glucose 339 mg/dL (70-110)
--- NOTE | 2020-11-27 11:37 | NURSING ---
patient experiencing period of increased confusion--disoriented to place/time. at this time she forgot she was in the hospital and did not think she was in a bed. pt thought she was on the floor. pt also believed her niece to be in the room recently when no visitors have been in today. very anxious and tearful at times during conversation. reoriented to room/place/POC. pt continues to report anxiety, stating she just can't seem to think clearly. concerned with out come of symptoms/discharge plans. MD notified of symptoms. will continue to monitor.
--- NOTE | 2020-11-27 12:26 | PN_ITS ---
Patient Problems: Active and Suspected Problems (Last Reviewed 07/22/20 @ 21:[address] Ranjeet Richardson MD) Fall (Acute) Elevated troponin (Acute) Subjective: She continues to go between lucidity and confusion. She was talking today that she knows she is in the hospital but last night she felt that she had fallen at home even now now she knows she is in the hospital. Vitals/I&O's: Vital Signs Temp Pulse Resp BP Pulse Ox 97.1 F L 99 16 182/81 H 95 11/27/20 09:00 11/27/20 11:50 11/27/20 09:00 11/27/20 11:26 11/27/20 09:00 Oxygen Flow Rate (L/min) 2 Oxygen Delivery Method Room Air Weight: 258 lb Body Mass Index (BMI) 41.6 Finger Stick Blood Glucose 198 Intake and Output for Last 24 Hours 11/25/20 11/26/20 11/27/20 23:59 23:59 23:59 Intake Total 1000 / 1440 2120 / 2120 480 / 480 Output Total 550 / 550 1500 / 1500 Balance 1000 / 1440 1570 / 1570 -1020 / -1020 General: Alert, Oriented x3, Cooperative, No apparent distress HEENT: Atraumatic, PERRLA, EOMI, Normocephalic Oral: Moist Mucosa Neck: Supple, No JVD Lungs: Clear to auscultation, Normal air movement, No rhonchi, No wheeze, No rales Cardiovascular: Regular rate, Regular Rhythm, Normal S1, Normal S2, No murmurs Abdomen: Soft, Non Tender, Non-Distended, No Hepato-splenomegaly Extremities: No edema, Capillary Refill Less than 3 Seconds Skin: No rashes, No breakdown Neurological: Neuro grossly intact, Sensory exam intact to light touch and pain Psych/Mental Status: Normal Affect, Appropriate Laboratory Results 11/26/20 14:45: Lamotrigine Pending 11/26/20 16:26: POC Glucose 309 H 11/26/20 22:12: POC Glucose 352 H 11/27/20 05:05: WBC 12.1 H, RBC 4.45, Hgb 13.1, Hct 37.8, MCV 84.9, MCH 29.4, MCHC 34.7, RDW Std Deviation 41.6, RDW Coeff of Linda 14.0, Plt Count 438, MPV 11.2, Immature Gran % (Auto) 0.700, Neut % (Auto) 71.7 H, Lymph % (Auto) 18.6 L, Duchesne % (Auto) 7.7, Eos % (Auto) 0.7, Baso % (Auto) 0.6, Absolute Neuts (auto) 8.7 H, Absolute Lymphs (auto) 2.26, Nucleated RBC % 0 11/27/20 05:05: Sodium 133 L, Potassium 3.2 L, Chloride 99, Carbon Dioxide 25.0, Anion Gap 9, BUN 15, Creatinine 0.70, Estim Creat Clear Calc 49.00, Est GFR (MDRD) Af Amer 105, Est GFR (MDRD) Non-Af 87, BUN/Creatinine Ratio 21.3 H, Glucose 346 H, Calcium 9.1 11/27/20 06:27: POC Glucose 343 H 11/27/20 11:21: POC Glucose 339 H Current Medications Acetaminophen (Acetaminophen 325 Mg Tablet) 650 mg PO Q6H PRN PRN PRN Reason: Pain Score 1-10/Temp > 100.7 F Last Admin: 11/27/20 09:04 Dose: 650 mg Documented by: Albuterol/Ipratropium (Ipratropium/Albuterol Sulfate 3 Ml Ampul.Neb) 3 ml INHALATION Q6H.RT [facility] Last Admin: 11/26/20 19:04 Dose: 3 ml Documented by: Aspirin (Aspirin 81 Mg Tab.Chew) 81 mg PO DAILY@0800 [facility] Last Admin: 11/27/20 08:52 Dose: 81 mg Documented by: Calcium Carbonate (Calcium Carbonate 500 Mg Tablet) 500 mg PO Q4H PRN PRN PRN Reason: INDIGESTION Last Admin: 11/26/20 22:15 Dose: 500 mg Documented by: Enoxaparin Sodium (Enoxaparin 30 Mg/0.3 Ml Syringe) 30 mg SC DAILY [facility] Last Admin: 11/27/20 08:52 Dose: 30 mg Documented by: Hydralazine HCl (Hydralazine 20 Mg/Ml Vial) 10 mg IV Q6H PRN PRN PRN Reason: for SBP>160 Last Admin: 11/27/20 06:31 Dose: 10 mg Documented by: Insulin Glargine (Insulin Glargine 100 Units/Ml Pen) 20 units SC 1100 [facility] Last Admin: 11/27/20 11:21 Dose: 20 units Documented by: Insulin Human Lispro (Insulin Lispro 100 Unit/Ml Insuln.Pen) 0 unit SC ACHS [facility]; Protocol Last Admin: 11/27/20 11:22 Dose: 5 unit Documented by: Lisinopril (Lisinopril 10 Mg Tablet) 10 mg PO BID [facility] Last Admin: 11/27/20 08:52 Dose: 10 mg Documented by: Nitroglycerin (Nitroglycerin Oint 1 Inch Packet) 1 inch TD Q6 [facility] Last Admin: 11/27/20 11:25 Dose: 1 inch Documented by: Ondansetron HCl (Ondansetron 4 Mg/2 Ml Vial) 4 mg IV Q8H PRN PRN PRN Reason: NAUSEA/VOMITING Last Admin: 11/27/20 09:07 Dose: 4 mg Documented by: Pantoprazole Sodium (Pantoprazole Sodium 20 Mg Tablet) 20 mg PO DAILY [facility] Last Admin: 11/27/20 08:52 Dose: 20 mg Documented by: Senna/Docusate Sodium (Senna/Docusate Sodium 1 Tablet) 2 tablet PO BID PRN PRN PRN Reason: Constipation Last Admin: 11/27/20 09:05 Dose: 2 tablet Documented by: Sodium Chloride (0.9% Saline Lock 10 Ml Syringe) 10 - 40 ml IV UD PRN PRN Reason: SALINE FLUSH Last Admin: 11/27/20 09:07 Dose: 10 ml Documented by: Throat Lozenges (Benzocaine/Menthol 1 Lozenge) 1 lozenge MUCOUS MEM Q2H PRN PRN PRN Reason: SORE THROAT Last Admin: 11/26/20 13:13 Dose: 1 lozenge Documented by: STROKE Vital Signs/Narrative: Vital Signs Temp Pulse Resp BP BP Pulse Ox 11/27/20 11:50 99 11/27/20 11:26 91 182/81 H 11/27/20 09:00 97.1 F L 93 16 162/82 H 95 Medical Necessity - Tobacco Use Smoking Status: Never smoker Tobacco Use: Non-smoker Assessment/Plan All Active Problems (Last Reviewed 07/22/20 @ 21:[address] Ranjeet Richardson MD) Fall (Acute) Elevated troponin (Acute) 1. Generalized weakness and debility with frequent falls and inability to complete ADLs/history of seizures/altered mental status -PT/OT for evaluation -Case management consult for possible placement -Check Lamictal level as this has been verified is one of her medications to check if she is toxic and this is the cause of her altered mental status that is transient -If Lamictal level is normal can restart and then slowly restart adding her other medications back on. She states that she is supposed to be coming down on her Prozac. -We will hold her narcotics 2. Abnormal cardiac enzymes/HTN/HLD -Troponins are trending down EKG was unremarkable -For chest pain is reproducible with palpation and she states that she did fall onto her left chest during one of her falls -Echo with EF of 50 to 55% with apical hypokinesis, this is diminished compared to her previous echo on 07/01/2020 with an EF of 65% and normal left ventricular systolic function -Based on the echo findings as well as the downtrending troponin is likely she recently had a cardiac event. She will need to follow-up with cardiology as an outpatient at the moment I feel that she is a little too ill to undergo a cardiac cath -We will place on Coreg and Lipitor she is already on aspirin maximize medical therapy -Continue with her home blood pressure medications as well as her statins 3. DM 2 -Placed on sliding scale insulin Accu-Cheks AC at bedtime -We will adjust as necessary 4. Leukocytosis -Reactive, UA was unremarkable for infection chest x-ray was normal -Improving without intervention DVT: Lovenox OBSV E&M: [id number] Subsequent observation care L2
[2020-11-27] MEDS: Carvedilol 3.125 MG TABLET PO ×2 (14:35→21:41)
[2020-11-27 16:16] LABS: Bedside Glucose 331 mg/dL (70-110)
[2020-11-27] MEDS: FLUoxetine 20 MG Capsule PO (17:29)
[2020-11-27] MEDS: Ipratropium/Albuterol Sulfate 3 ML AMPUL.NEB INHALATION (19:09)
--- NOTE | 2020-11-27 20:37 | NURSING ---
Phone call from pt's daughter, Valentina. Gave update on pt's condition. Valentina expressed concerns about pt's medications and some OTC medications that pt has been taking but not telling anyone. Advised daughter that it would be a good idea, if she is able, to come Saturday when the hospitalist and CM are here to discuss her concerns. Daughter states that she feels pt's mentation has gone down hill this past year. JUNIOR Mohan
[2020-11-27] MEDS: Atorvastatin Calcium 40 MG Tablet PO (21:41)
[2020-11-27 22:21] LABS: Bedside Glucose 393 mg/dL (70-110)
--- NOTE | 2020-11-27 23:48 | RAD_ITS ---
STUDY: X-RAY - ABDOMEN/PELVIS REASON FOR EXAM: Female, 70 years old. Nausea and vomiting TECHNIQUE: 3 portable AP supine views of the abdomen and pelvis. There is obesity, the entirety of soft tissue is not imaged. COMPARISON: CT abdomen pelvis 07/19/2020 FINDINGS: Insufficient visualization of lung bases. Presumed cardiac enlargement. Nonspecific air distention of sigmoid colon, retained fecal material in the descending and distal transverse colon. Presumed cholecystectomy. There are diffuse degenerative changes of the visualized lumbar spine. RAD/Abdomen Single View (Portable) IMPRESSION: No evidence of obstruction or overt perforation on supine portable examination. Electronically Signed: Carly Romo MD at 0:47 EDT , Service support ,
[2020-11-28] VITALS (14 sets, daily range): BP systolic 160–198; BP diastolic 66–93; PULSE 89–101; RESP 16–22; TEMP 36.4–37.1; O2SAT 95–97
[2020-11-28] MEDS: 0.9% Saline Lock 10 ML Syringe IV ×3 (00:01→06:22)
[2020-11-28] MEDS: Ondansetron 4 MG/2 ML Vial IV ×2 (00:01→16:47)
[2020-11-28] MEDS: Nitroglycerin Oint 1 INCH PACKET TD ×4 (00:03→17:00)
[2020-11-28] MEDS: Metoclopramide 10 MG/2 ML Vial 5 MG IV (02:19)
[2020-11-28] MEDS: Senna/Docusate Sodium 1 Tablet 2 TABLET PO (03:06)
[2020-11-28] MEDS: hydrALAZINE 20 MG/ML Vial 10 MG IV (06:22)
[2020-11-28] MEDS: Insulin Lispro 100 UNIT/ML INSULN.PEN SC ×4 (06:23→20:50)
[2020-11-28 06:40] LABS: Bedside Glucose 325 mg/dL (70-110)
[2020-11-28 07:25] LABS: Absolute Lymphocyte Count 2.08 X10^3/uL (0.83-4.51); Absolute Neutrophil Count 8.4 X10^3/uL (2.0-7.7); Basophil# 0.06 X10^3/uL; Basophil% 0.5 % (0-1); Eosinophil# 0.08 X10^3/uL; Eosinophils% 0.7 % (0-5); Hematocrit 38.6 % (37-47); Hemoglobin 12.9 g/dL (12.0-15.0); Lymphocyte # 2.08 X10^3/ul (0.83-4.51); Lymphocyte % 18.3 % (19-41); Mean Corp Hgb Conc 33.4 g/dL (32-36); Mean Corpuscular Hgb 28.7 pg (27.0-32.0); Monocyte# 0.72 X10^3/uL; Monocyte% 6.3 % (0-10); NRBC Flagged by Analyzer 0 % (0-5); Neutrophil # 8.36 X10^3/uL (2.7-7.7); Neutrophil % 73.5 % (47-70); Platelet Count 460 K/mm3 (150-450); RBC Distribution Width CV 14.5 % (11.6-14.6); RBC Distribution Width SD 43.5 fl (35.1-43.9); Red Blood Count 4.49 M/mm3 (4.2-5.4); White Blood Count 11.4 K/mm3 (4.4-11.0)
[2020-11-28 07:47] LABS: Anion Gap 10 (5-15); BUN 16 mg/dL (7-18); BUN/Creat Ratio 23.7 RATIO (10-20); Calcium,Total 8.9 mg/dL (8.5-10.1); Chloride 101 mmol/L (98-107); Creatinine, Serum 0.68 mg/dL (0.55-1.02); EST Glomerular Filtration Rate 92 mL/min (>60); Est Glom Filt Rate - Afr Amer 111 mL/min (>60); Glucose 336 mg/dL (74-106); Magnesium 1.7 mg/dL (1.6-2.6); Potassium 3.9 mmol/L (3.5-5.1); Sodium Level 135 mmol/L (136-145)
--- NOTE | 2020-11-28 08:12 | TELEMED_ITS ---
SOC Telemed has confirmed receipt of a request for visit. This document confirms receipt of the order initiating the consult. To find the results of the consultation, please view the patient's reports for the scanned Telemed Consult.
[2020-11-28] MEDS: Enoxaparin 30 MG/0.3 ML Syringe SC (09:37)
[2020-11-28] MEDS: Aspirin 81 MG TAB.CHEW PO (09:37)
[2020-11-28] MEDS: Lisinopril 10 MG Tablet PO ×2 (09:37→20:49)
[2020-11-28] MEDS: Pantoprazole Sodium 20 MG Tablet PO (09:37)
[2020-11-28] MEDS: FLUoxetine 20 MG Capsule PO (09:37)
[2020-11-28] MEDS: Carvedilol 3.125 MG TABLET PO (11:14)
[2020-11-28 11:41] LABS: Bedside Glucose 382 mg/dL (70-110)
[2020-11-28] MEDS: Ipratropium/Albuterol Sulfate 3 ML AMPUL.NEB INHALATION ×2 (13:02→19:31)
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
--- NOTE | 2020-11-28 15:11 | PN_ITS ---
Patient Problems: Active and Suspected Problems (Last Reviewed 07/22/20 @ 21:[address] Ranjeet Richardson MD) Fall (Acute) Elevated troponin (Acute) Reason for Visit: Follow-up for altered mental status, fall Objective: I talked to the patient's daughter present present in the room As per the daughter, there is gradual decline in the patient's memory, behavior, confusion and recall for last 4 to 6 months. Patient also had fall in the bathroom and she hit her head on the counter. She had the suspicion she might have head injury. I told about CT finding that patient did not had any acute intracranial bleed. Patient sometimes fail to identify her daughter. Patient also states she cannot see but patient able to respond and answer about the objects, color and has recognition of objects Physical exam General: Confusion, alternating levels of alertness. Disoriented to time and situation and person HEENT: Atraumatic, PERRLA, EOMI, Normocephalic normal peripheral field of vision on one-to-one visual encounter Oral: No Gingival or Mucosal Lesions/ Ulcerations Neck: Supple, No JVD, Negative Carotid Bruits Lungs: Air entry diminished in bilateral lung bases. No crepitation/rhonchi Cardiovascular: Sinus tachycardia, Normal S1, Normal S2, No murmurs Abdomen: Bowel Sounds Present, Soft, Non Tender, Non-Distended : No renal angle tenderness. No suprapubic tenderness. Extremities: No edema, Capillary Refill Less than 3 Seconds Skin: No rashes, No breakdown Musculoskeletal: No Tenderness to Palpation of Joints or Extremities Neurological: Cranial nerves II-XII grossly intact, Deep Tendon Reflexes 2+/4 and Symmetrical, Neuro grossly intact Psych/Mental Status: Normal Affect, Appropriate. Vitals/I&O's: Vital Signs Temp Pulse Resp BP Pulse Ox 98.3 F 95 18 184/79 H 96 11/28/20 14:45 11/28/20 14:45 11/28/20 14:45 11/28/20 14:45 11/28/20 14:45 Oxygen Flow Rate (L/min) 2 Oxygen Delivery Method Room Air Weight: 258 lb Body Mass Index (BMI) 41.6 Finger Stick Blood Glucose 198 Intake and Output for Last 24 Hours 11/26/20 11/27/20 11/28/20 23:59 23:59 23:59 Intake Total 0 / 2120 1360 / 1360 360 / 360 Output Total 550 / 550 2150 / 2150 650 / 650 Balance 1570 / 1570 -790 / -790 -290 / -290 Laboratory Results 11/27/20 16:07: POC Glucose 331 H 11/27/20 21:34: POC Glucose 393 H 11/28/20 06:20: POC Glucose 325 H 11/28/20 06:54: WBC 11.4 H, RBC 4.49, Hgb 12.9, Hct 38.6, MCV 86.0, MCH 28.7, MCHC 33.4, RDW Std Deviation 43.5, RDW Coeff of Linda 14.5, Plt Count 460 H, MPV 11.0, Immature Gran % (Auto) 0.700, Neut % (Auto) 73.5 H, Lymph % (Auto) 18.3 L, Wilcox % (Auto) 6.3, Eos % (Auto) 0.7, Baso % (Auto) 0.5, Absolute Neuts (auto) 8.4 H, Absolute Lymphs (auto) 2.08, Nucleated RBC % 0 11/28/20 06:54: Sodium 135 L, Potassium 3.9, Chloride 101, Carbon Dioxide 24.0, Anion Gap 10, BUN 16, Creatinine 0.68, Estim Creat Clear Calc 49.00, Est GFR (MDRD) Af Amer 111, Est GFR (MDRD) Non-Af 92, BUN/Creatinine Ratio 23.7 H, Glucose 336 H, Calcium 8.9, Magnesium 1.7 11/28/20 11:17: POC Glucose 382 H Current Medications Acetaminophen (Acetaminophen 325 Mg Tablet) 650 mg PO Q6H PRN PRN PRN Reason: Pain Score 1-10/Temp > 100.7 F Last Admin: 11/27/20 09:04 Dose: 650 mg Documented by: Albuterol/Ipratropium (Ipratropium/Albuterol Sulfate 3 Ml Ampul.Neb) 3 ml INHALATION Q6H.RT [facility] Last Admin: 11/28/20 13:02 Dose: 3 ml Documented by: Aspirin (Aspirin 81 Mg Tab.Chew) 81 mg PO DAILY@0800 [facility] Last Admin: 11/28/20 09:37 Dose: 81 mg Documented by: Atorvastatin Calcium (Atorvastatin Calcium 40 Mg Tablet) 40 mg PO QHS [facility] Last Admin: 11/27/20 21:41 Dose: 40 mg Documented by: Calcium Carbonate (Calcium Carbonate 500 Mg Tablet) 500 mg PO Q4H PRN PRN PRN Reason: INDIGESTION Last Admin: 11/26/20 22:15 Dose: 500 mg Documented by: Carvedilol (Carvedilol 3.125 Mg Tablet) 12.5 mg PO BID [facility] Enoxaparin Sodium (Enoxaparin 30 Mg/0.3 Ml Syringe) 30 mg SC DAILY [facility] Last Admin: 11/28/20 09:37 Dose: 30 mg Documented by: Fluoxetine HCl (Fluoxetine 20 Mg Capsule) 20 mg PO DAILY [facility] Last Admin: 11/28/20 09:37 Dose: 20 mg Documented by: Hydralazine HCl (Hydralazine 20 Mg/Ml Vial) 10 mg IV Q6H PRN PRN PRN Reason: for SBP>160 Last Admin: 11/28/20 06:22 Dose: 10 mg Documented by: Insulin Glargine (Insulin Glargine 100 Units/Ml Pen) 30 units SC 1100 [facility] Insulin Glargine (Insulin Glargine 100 Units/Ml Pen) 10 units SC QHS [facility] Insulin Human Lispro (Insulin Lispro 100 Unit/Ml Insuln.Pen) 0 unit SC ACHS [facility]; Protocol Last Admin: 11/28/20 11:21 Dose: 6 unit Documented by: Insulin Human Lispro (Insulin Lispro 100 Unit/Ml Insuln.Pen) 8 unit SC TIDAC [facility] Lisinopril (Lisinopril 10 Mg Tablet) 10 mg PO BID [facility] Last Admin: 11/28/20 09:37 Dose: 10 mg Documented by: Nitroglycerin (Nitroglycerin Oint 1 Inch Packet) 1 inch TD Q6 [facility] Last Admin: 11/28/20 11:30 Dose: 1 inch Documented by: Ondansetron HCl (Ondansetron 4 Mg/2 Ml Vial) 4 mg IV Q8H PRN PRN PRN Reason: NAUSEA/VOMITING Last Admin: 11/28/20 00:01 Dose: 4 mg Documented by: Pantoprazole Sodium (Pantoprazole Sodium 20 Mg Tablet) 20 mg PO DAILY [facility] Last Admin: 11/28/20 09:37 Dose: 20 mg Documented by: Senna/Docusate Sodium (Senna/Docusate Sodium 1 Tablet) 2 tablet PO BID PRN PRN PRN Reason: Constipation Last Admin: 11/27/20 09:05 Dose: 2 tablet Documented by: Senna/Docusate Sodium (Senna/Docusate Sodium 1 Tablet) 2 tablet PO DAILY [facility] Last Admin: 11/28/20 03:06 Dose: 2 tablet Documented by: Sodium Chloride (0.9% Saline Lock 10 Ml Syringe) 10 - 40 ml IV UD PRN PRN Reason: SALINE FLUSH Last Admin: 11/28/20 06:22 Dose: 10 ml Documented by: Throat Lozenges (Benzocaine/Menthol 1 Lozenge) 1 lozenge MUCOUS MEM Q2H PRN PRN PRN Reason: SORE THROAT Last Admin: 11/26/20 13:13 Dose: 1 lozenge Documented by: STROKE Vital Signs/Narrative: Vital Signs Temp Pulse Resp BP Pulse Ox 11/28/20 14:45 98.3 F 95 18 184/79 H 96 11/28/20 13:03 90 20 H 11/28/20 11:30 99 198/93 H Medical Necessity - Tobacco Use Smoking Status: Never smoker Tobacco Use: Non-smoker Assessment/Plan All Active Problems (Last Reviewed 07/22/20 @ 21:[address] Ranjeet Richardson MD) Fall (Acute) Elevated troponin (Acute) This 70-year-old female admitted with altered mental status, generalized weakness, debility and fall 1. Generalized weakness and debility with frequent falls and decreased activities of daily living: Discussed with patient's daughter. He has been social secretary on board. PT and OT. 2. History of seizure, exact classification type and etiology unclear: Lamictal level is pending. Resume Topamax and Lamictal. Hold phenobarbitone. MRI brain ordered. Neurology consult for further opinion regarding seizure. EEG was done and shows generalized slowing of waves but no epileptogenic focus. 3. Elevated troponin/NSTEMI: Patient denies any chest pain now. Patient had fall and as per previous hospitalist documentation, chest pain was reproducible with palpation as she fell on her left side. Echo on 11/25 with EF of 50 to 55% with apical hypokinesis, this is diminished compared to her previous echo on 07/01/2020 with an EF of 65% and normal left ventricular systolic function. I discussed with personal care home administrator Dr. Fairbanks and he thinks currently no indication for cardiac cath but follow-up as an outpatient. Continue Coreg and Lipitor, lisinopril and baby aspirin. 3. DM 2: Glucose is elevated. Insulin uptitrated. 4. Leukocytosis: Most likely reactive. UA and chest x-ray is unremarkable. WBC count improved most recent normal. DVT: Lovenox Total time of the visit including total time spent in counseling or coordination of care, (more than 50% of the total time, spent in obtaining medical information from nurses and other ancillary care providers,explaining to the patient about labs, imaging, diagnosis and management), discussion with the daughter, review of labs and imaging is 30 minutes. Inpatient E&M: 64331 Subs Hosp L2
--- NOTE | 2020-11-28 15:13 | CASEMGMT ---
Patient's daughter came to [facility]. BRANDI spoke with her about a plan. She asked what would be best for patient at discharge. BRANDI told her she needs to go to a [facility] facility for short term rehab. She said she does not want her to go to a long term due to bad experiences. 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 She asked what she needs to do to get patient transferred somewhere else to have her head checked out. She feels there is more going on than what the doctor is aware of. BRANDI told her SW can see if the physician can come and talk with her. BRANDI core texted Dr Boyd. Marcia Encinas METAL HARDENER AHSAN
--- NOTE | 2020-11-28 15:31 | MRI_ITS ---
We are attempting to reach an attending provider to discuss findings. An addendum with communication details will be sent when the communication is complete. STUDY: MRI BRAIN WITHOUT CONTRAST REASON FOR EXAM: Female, 70 years old. ALTERED MENTAL STATUS -- H/o seizure, fall TECHNIQUE: Standardized multiplanar fat and water weighted pulse sequences were obtained. COMPARISON: CT brain 11/25/2020 FINDINGS: There is mild cerebral atrophy with widening of the extra-axial spaces and ventricular dilatation. There are multiple white matter hyperintensities, distributed throughout the deep white matter tracts of the cerebral hemispheres, consistent with moderate chronic white matter ischemic changes. Restricted diffusion within the mesial temporal lobe, splenium and right occipital subcortical white matter on the right. Normal bilateral basal ganglia. Normal thalami. There is no extra-axial fluid accumulation. Normal flow voids within the major intracranial circulation suggesting patency by spin echo criteria. Normal sella turcica, pituitary gland, infundibular stalk, optic chiasm and hypothalamus. Normal tectal plate and pineal gland. Normal midbrain, mary jo and medulla. Normal cerebellum. Normal basal cisterns. Normal bilateral temporal bones. Normal bilateral internal auditory canals. No demonstrated orbital abnormality, within the constraints of a routine brain study. Air-fluid level right maxillary sinus. Normal calvarium and skull base. Normal visualized soft tissue structures. Normal visualized upper cervical spine. MRI/Brain without Contrast IMPRESSION: Acute infarct right posterior cerebral artery territory Electronically Signed: Adrián Donovan MD at 21:35 EDT , Service support ,
[2020-11-28] MEDS: Insulin Lispro 100 UNIT/ML INSULN.PEN 8 UNIT SC (16:52)
[2020-11-28 17:21] LABS: Bedside Glucose 367 mg/dL (70-110)
[2020-11-28] MEDS: lamoTRIgine 100 MG Tablet 200 MG PO (20:49)
[2020-11-28] MEDS: Topiramate 50 MG Tablet PO (20:49)
[2020-11-28] MEDS: Atorvastatin Calcium 40 MG Tablet PO (20:49)
[2020-11-28] MEDS: Carvedilol 12.5 MG Tablet PO (20:50)
[2020-11-28 21:26] LABS: Bedside Glucose 279 mg/dL (70-110)
[2020-11-29] VITALS (16 sets, daily range): BP systolic 126–179; BP diastolic 54–83; PULSE 72–86; RESP 17–20; TEMP 36.1–37; O2SAT 94–97
[2020-11-29] MEDS: Nitroglycerin Oint 1 INCH PACKET TD ×4 (00:38→17:16)
[2020-11-29] MEDS: Ipratropium/Albuterol Sulfate 3 ML AMPUL.NEB INHALATION ×3 (01:44→13:36)
--- NOTE | 2020-11-29 08:21 | CT_ITS ---
STUDY: CTA HEAD AND NECK WITH CONTRAST REASON FOR EXAM: Female, 70 years old. 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 Data acquisition was obtained from the skull base through the vertex following intravenous administration of IV 100mL Isovue-370. MIP images were reconstructed from the axial data set. Post-processing of the angiographic images was performed, with multiplanar reformation and 3D reconstruction. Individualized dose optimization techniques were used for this CT. COMPARISON: No relevant priors. FINDINGS: Normal bilateral petrous carotid arteries. There is calcified plaque formation of the right cavernous carotid artery, without a cross-sectional luminal stenosis. There is calcified plaque formation of the left cavernous carotid artery, without a cross-sectional luminal stenosis. Normal right A1 segments of the anterior cerebral artery. Normal left A1 segments of the anterior cerebral artery. Normal intact anterior communicating artery (ACOM). Normal bilateral A2 segments of the anterior cerebral arteries. Normal right M1 and M2 segments of the middle cerebral arteries, with a normal M1 bifurcation. Normal left M1 and M2 segments of the middle cerebral arteries, with a normal M1 bifurcation. There is non-visualization of the right posterior communicating artery (PCOM). Normal left posterior communicating artery (PCOM). Normal bilateral vertebral arteries. Normal basilar artery with a normal basilar bifurcation. The visualized bilateral superior cerebellar (SCA) arteries are normal. Normal bilateral P1, P2 and visualized P3 segments of the posterior cerebral arteries. There is no demonstrated aneurysm of the [place] of [place]. There is no demonstrated abnormality of the visualized brain. AORTIC ARCH: There is atherosclerotic calcific plaque formation of the aortic arch and great vessels arising from the aortic arch, without a hemodynamically significant stenosis. There is a normal origin of the brachiocephalic, left common carotid, and left subclavian arteries. RIGHT CAROTID ARTERIES: Normal right common carotid artery (CCA). Normal right common carotid bulb. Normal origin of the right internal carotid (ICA) artery without a hemodynamically significant stenosis. Normal visualized cervical portion of the right internal carotid artery. Normal origin of the right external carotid artery (ECA). LEFT CAROTID ARTERIES: Normal left common carotid artery (CCA). Normal left common carotid bulb. Normal origin of the left internal carotid (ICA) artery without a hemodynamically significant stenosis. Normal visualized cervical portion of the left internal carotid artery. Normal origin of the left external carotid artery (ECA). VERTEBRAL ARTERIES: There is enhancement within the bilateral vertebral arteries with a small right vertebral artery, and a dominant left vertebral artery. CT/CTA Head AND Neck W/ Contrast IMPRESSION: Nonvisualization of the right posterior to indicating artery. Electronically Signed: Albert Perkins MD at 11:22 EDT , Service support ,
[2020-11-29] MEDS: Topiramate 50 MG Tablet PO ×2 (08:28→21:37)
[2020-11-29] MEDS: Lisinopril 10 MG Tablet PO ×2 (08:28→21:36)
[2020-11-29] MEDS: Senna/Docusate Sodium 1 Tablet 2 TABLET PO (08:28)
[2020-11-29] MEDS: Carvedilol 12.5 MG Tablet PO ×2 (08:29→21:36)
[2020-11-29] MEDS: Enoxaparin 30 MG/0.3 ML Syringe SC (08:29)
[2020-11-29] MEDS: lamoTRIgine 100 MG Tablet 200 MG PO ×2 (08:29→21:36)
[2020-11-29] MEDS: Aspirin 81 MG TAB.CHEW PO (08:29)
[2020-11-29] MEDS: Pantoprazole Sodium 20 MG Tablet PO (08:32)
[2020-11-29] MEDS: Insulin Lispro 100 UNIT/ML INSULN.PEN SC ×4 (08:34→21:39)
[2020-11-29] MEDS: Insulin Lispro 100 UNIT/ML INSULN.PEN 8 UNIT SC ×3 (08:35→16:06)
--- NOTE | 2020-11-29 09:11 | CASEMGMT ---
SW completed a PHQ 9 with patient as she had a Stroke. She scored a 5 which indicates mild depression. Patient is interested in counseling. BRADNI will notify the Bin Tension Machine Operator at the OR. [facility]. BRANDI did ask patient why she does not have Medicare and she said she did not work enough quarters. Marcia Encinas COLOR MAKER AHSAN
[2020-11-29 09:16] LABS: Bedside Glucose 309 mg/dL (70-110)
[2020-11-29] MEDS: 0.9% Normal Saline 1,000 ML 75 ML IV (10:39)
[2020-11-29] MEDS: Clopidogrel Bisulfate 75 MG Tablet PO (10:40)
[2020-11-29 12:10] LABS: Bedside Glucose 251 mg/dL (70-110)
--- NOTE | 2020-11-29 15:00 | CASEMGMT ---
BRANDI called patient's daughter again to discuss discharge plan. She said she was waiting to hear the test results from today. BRANDI asked her about where patient is going at discharge. She said she will go home. 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 She said she is going to see if her nephew will move in with patient for a little while. [facility] cannot set up home health as it has [facility] since this is patient's only health coverage. Marcia Encinas INVESTIGATION OFFICERJuan Ramon FOREMAN
--- NOTE | 2020-11-29 15:42 | EKG12_ITS ---
Test Reason : CP Blood Pressure : / mmHG Vent. Rate : 080 BPM Atrial Rate : 080 BPM P-R Int : 176 ms QRS Dur : 118 ms QT Int : 448 ms P-R-T Axes : 017 -63 071 degrees QTc Int : 516 ms Normal sinus rhythm Left anterior fascicular block Left ventricular hypertrophy with QRS widening Nonspecific ST abnormality Prolonged QT Abnormal ECG When compared with ECG of 26-NOV-2020 05:16, MANUAL COMPARISON REQUIRED, DATA IS UNCONFIRMED Confirmed by MARIA E ALEJANDRO, CARLOS ([id number]), acquisitions editor CELINA RODRIGUES ([id number]) on 12/02/2020 8:31:28 AM Referred By: JUAN Confirmed By:PRASAD SANDERSON MD
--- NOTE | 2020-11-29 15:58 | PN_ITS ---
Patient Problems: Active and Suspected Problems (Last Reviewed 07/22/20 @ 21:[address] Ranjeet Richardson MD) Fall (Acute) Elevated troponin (Acute) Reason for Visit: Follow-up for right patchy posterior ischemic infarct and chest pain Objective: Patient had MRI done and reported acute infarct of right posterior cerebral artery territory. CT angiogram head and neck ordered. Patient complain of chest pain in afternoon. Twelve-lead EKG reviewed. Normal sinus rhythm at 80 bpm, left anterior fascicular block, LAD, LVH with QRS widening with nonspecific ST-T abnormality. No significant change from previous EKG on 11/29 at 8:13 AM or previous EKG of 11/25. Troponin ordered. Physical exam General: Confusion, Disoriented to time and situation and person HEENT: Atraumatic, PERRLA, EOMI, Normocephalic, decreased field of vision on right peripheral upper quadrant. Oral: No Gingival or Mucosal Lesions/ Ulcerations Neck: Supple, No JVD, Negative Carotid Bruits Lungs: Air entry diminished in bilateral lung bases. No crepitation/rhonchi Cardiovascular: Sinus tachycardia, Normal S1, Normal S2, No murmurs Abdomen: Bowel Sounds Present, Soft, Non Tender, Non-Distended : No renal angle tenderness. No suprapubic tenderness. Extremities: No edema, Capillary Refill Less than 3 Seconds Skin: No rashes, No breakdown Musculoskeletal: No Tenderness to Palpation of Joints or Extremities Neurological: Cranial nerves II-XII grossly intact, Deep Tendon Reflexes 2+/4 and Symmetrical, Neuro grossly intact Psych/Mental Status: Normal Affect, Appropriate. Vitals/I&O's: Vital Signs Temp Pulse Resp BP Pulse Ox 98.5 F 78 18 143/82 H 96 11/29/20 12:00 11/29/20 13:36 11/29/20 13:36 11/29/20 12:00 11/29/20 12:00 Oxygen Flow Rate (L/min) 2 Oxygen Delivery Method Room Air Weight: 258 lb Body Mass Index (BMI) 41.6 Finger Stick Blood Glucose 198 Intake and Output for Last 24 Hours 11/27/20 11/28/20 11/29/20 23:59 23:59 23:59 Intake Total 1360 / 1360 480 / 530 530 / 530 Output Total 2150 / 2150 950 / 1450 1200 / 1200 Balance -790 / -790 -470 / -920 -670 / -670 Laboratory Results 11/28/20 16:50: POC Glucose 367 H 11/28/20 20:47: POC Glucose 279 H 11/29/20 08:23: POC Glucose 309 H 11/29/20 11:44: POC Glucose 251 H Current Medications Acetaminophen (Acetaminophen 325 Mg Tablet) 650 mg PO Q6H PRN PRN PRN Reason: Pain Score 1-10/Temp > 100.7 F Last Admin: 11/27/20 09:04 Dose: 650 mg Documented by: Albuterol/Ipratropium (Ipratropium/Albuterol Sulfate 3 Ml Ampul.Neb) 3 ml INHALATION Q6H.RT [facility] Last Admin: 11/29/20 13:36 Dose: 3 ml Documented by: Aspirin (Aspirin 81 Mg Tab.Chew) 81 mg PO DAILY@0800 [facility] Last Admin: 11/29/20 08:29 Dose: 81 mg Documented by: Atorvastatin Calcium (Atorvastatin Calcium 40 Mg Tablet) 40 mg PO QHS [facility] Last Admin: 11/28/20 20:49 Dose: 40 mg Documented by: Calcium Carbonate (Calcium Carbonate 500 Mg Tablet) 500 mg PO Q4H PRN PRN PRN Reason: INDIGESTION Last Admin: 11/26/20 22:15 Dose: 500 mg Documented by: Carvedilol (Carvedilol 12.5 Mg Tablet) 12.5 mg PO BID [facility] Last Admin: 11/29/20 08:29 Dose: 12.5 mg Documented by: Clopidogrel Bisulfate (Clopidogrel Bisulfate 75 Mg Tablet) 75 mg PO DAILY [facility] Last Admin: 11/29/20 10:40 Dose: 75 mg Documented by: Enoxaparin Sodium (Enoxaparin 30 Mg/0.3 Ml Syringe) 30 mg SC DAILY [facility] Last Admin: 11/29/20 08:29 Dose: 30 mg Documented by: Hydralazine HCl (Hydralazine 20 Mg/Ml Vial) 10 mg IV Q6H PRN PRN PRN Reason: for SBP>160 Last Admin: 11/28/20 06:22 Dose: 10 mg Documented by: Sodium Chloride () 1,000 mls @ 75 mls/hr IV .[id number] [facility] Stop: 11/29/20 21:44 Last Admin: 11/29/20 10:39 Dose: 75 mls/hr Documented by: Insulin Glargine (Insulin Glargine 100 Units/Ml Pen) 30 units SC 1100 [facility] Last Admin: 11/29/20 11:46 Dose: 30 u Documented by: Insulin Glargine (Insulin Glargine 100 Units/Ml Pen) 10 units SC QHS [facility] Last Admin: 11/28/20 20:51 Dose: 10 units Documented by: Insulin Human Lispro (Insulin Lispro 100 Unit/Ml Insuln.Pen) 0 unit SC ACHS [facility]; Protocol Last Admin: 11/29/20 11:45 Dose: 3 unit Documented by: Insulin Human Lispro (Insulin Lispro 100 Unit/Ml Insuln.Pen) 8 unit SC TIDAC [facility] Last Admin: 11/29/20 11:46 Dose: 8 u Documented by: Lamotrigine (Lamotrigine 100 Mg Tablet) 200 mg PO BID [facility] Last Admin: 11/29/20 08:29 Dose: 200 mg Documented by: Lisinopril (Lisinopril 10 Mg Tablet) 10 mg PO BID [facility] Last Admin: 11/29/20 08:28 Dose: 10 mg Documented by: Nitroglycerin (Nitroglycerin Oint 1 Inch Packet) 1 inch TD Q6 [facility] Last Admin: 11/29/20 11:49 Dose: 1 inch Documented by: Ondansetron HCl (Ondansetron 4 Mg/2 Ml Vial) 4 mg IV Q8H PRN PRN PRN Reason: NAUSEA/VOMITING Last Admin: 11/28/20 16:47 Dose: 4 mg Documented by: Pantoprazole Sodium (Pantoprazole Sodium 20 Mg Tablet) 20 mg PO DAILY [facility] Last Admin: 11/29/20 08:32 Dose: 20 mg Documented by: Senna/Docusate Sodium (Senna/Docusate Sodium 1 Tablet) 2 tablet PO BID PRN PRN PRN Reason: Constipation Last Admin: 11/27/20 09:05 Dose: 2 tablet Documented by: Senna/Docusate Sodium (Senna/Docusate Sodium 1 Tablet) 2 tablet PO DAILY [facility] Last Admin: 11/29/20 08:28 Dose: 2 tablet Documented by: Sodium Chloride (0.9% Saline Lock 10 Ml Syringe) 10 - 40 ml IV UD PRN PRN Reason: SALINE FLUSH Last Admin: 11/28/20 06:22 Dose: 10 ml Documented by: Throat Lozenges (Benzocaine/Menthol 1 Lozenge) 1 lozenge MUCOUS MEM Q2H PRN PRN PRN Reason: SORE THROAT Last Admin: 11/26/20 13:13 Dose: 1 lozenge Documented by: Topiramate (Topiramate 50 Mg Tablet) 50 mg PO BID [facility] Last Admin: 11/29/20 08:28 Dose: 50 mg Documented by: STROKE Vital Signs/Narrative: Vital Signs Temp Pulse Resp BP Pulse Ox 11/29/20 13:36 78 18 11/29/20 12:00 98.5 F 79 18 143/82 H 96 Medical Necessity - Tobacco Use Smoking Status: Never smoker Tobacco Use: Non-smoker Assessment/Plan All Active Problems (Last Reviewed 07/22/20 @ 21:[address] Ranjeet Richardson MD) Fall (Acute) Elevated troponin (Acute) This 70-year-old female admitted with altered mental status, generalized weakness, debility and fall 1. Generalized weakness and debility with frequent falls and decreased activit ies of daily living: Discussed with patient's daughter. He has been social insurance adviser on board. PT and OT. 2. History of seizure, exact classification type and etiology unclear: Lamictal level is pending. Resume Topamax and Lamictal. Hold phenobarbitone. MRI brain ordered. Neurology consult for further opinion regarding seizure. EEG was done and shows generalized slowing of waves but no epileptogenic focus. 11/29: Discussed with the neurologist. He agreed with resumption of Lamictal 200 mg twice daily and Topamax 50 mg twice daily that was done on 11/28. Lamictal level still pending. Patient did not had any seizure episode during hospital course. 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 He agrees with aspirin, Plavix and high intensity statin. 2D echo shows intact atrial septum. Advised 30-day event monitor. 3. Elevated troponin/NSTEMI: Patient denies any chest pain now. Patient had fall and as per previous hospitalist documentation, chest pain was reproducible with palpation as she fell on her left side. Echo on 11/25 with EF of 50 to 55% with apical hypokinesis, this is diminished compared to her previous echo on 07/01/2020 with an EF of 65% and normal left ventricular systolic function. I discussed with helicopter technician Dr. Fairbanks and he thinks currently no indication for cardiac cath but follow-up as an outpatient. Continue Coreg and Lipitor, lisinopril and baby aspirin. 11/29: Patient again complained of chest pain and EKG was done which did not show any acute change as compared to previous EKG. Troponin ordered. Earlier discussed with the helicopter technician and advised outpatient evaluation. 3. DM 2: Glucose is elevated. Insulin uptitrated. 4. Leukocytosis: Most likely reactive. UA and chest x-ray is unremarkable. WBC count improved most recent normal. DVT: Lovenox Total time of the visit including total time spent in counseling or coordination of care, (more than 50% of the total time, spent in obtaining medical information from nurses and other ancillary care providers,explaining to the patient about labs, imaging, diagnosis and management), discussion with the daughter, review of labs and imaging is 30 minutes. Clinical Impression(s) from Imaging Studies Brain CT 11/25/20 16:46 IMPRESSION: Mild periventricular white matter ischemic changes. No evidence for acute intracranial bleed.. Electronically Signed: Everton Abraham MD at 18:07 EDT , Service support , Echocardiogram 11/25/20 19:03 Interpretation Summary The estimated ejection fraction is EF 50-55% with apical Hypokinesia %. Brain MRI 11/28/20 15:31 IMPRESSION: Acute infarct right posterior cerebral artery territory Head/Neck CTA 11/29/20 08:21 IMPRESSION: Nonvisualization of the right posterior to indicating artery. Laboratory Results 11/28/20 16:50: POC Glucose 367 H 11/28/20 20:47: POC Glucose 279 H 11/29/20 08:23: POC Glucose 309 H 11/29/20 11:44: POC Glucose 251 H Inpatient E&M: [id number] [facility] L2
[2020-11-29 17:45] LABS: Bedside Glucose 191 mg/dL (70-110)
[2020-11-29] MEDS: Acetaminophen 325 MG Tablet 650 MG PO (18:54)
[2020-11-29] MEDS: Acyclovir 800 MG Tablet PO (21:35)
[2020-11-29] MEDS: Atorvastatin Calcium 40 MG Tablet PO (21:37)
[2020-11-29 22:06] LABS: Bedside Glucose 230 mg/dL (70-110)
--- NOTE | 2020-11-29 23:22 | NURSING ---
Pt is yelling out, using call light incessantly and demanding assistance when staff has been in room assisting patient frequently and recently. Discussed with pt need for patience when staff has just assisted her. Pt complains that she can't see and that we can't understand her situation. This RN offered emotional support but stated we would like to set some limitations to better assist her. Gave pt water, washcloth, adjusted pt linens and pillows, repositioned, etc. per pt request. Assured pt that we would be in to see her in 50 minutes as we check on her hourly.
[2020-11-30] VITALS (16 sets, daily range): BP systolic 125–197; BP diastolic 66–88; PULSE 76–91; RESP 14–18; TEMP 36.5–36.9; O2SAT 94–96
[2020-11-30] MEDS: Nitroglycerin Oint 1 INCH PACKET TD ×4 (00:07→17:31)
[2020-11-30] MEDS: hydrALAZINE 20 MG/ML Vial 10 MG IV (03:59)
[2020-11-30] MEDS: 0.9% Saline Lock 10 ML Syringe IV ×2 (04:00→10:16)
[2020-11-30] MEDS: Acyclovir 800 MG Tablet PO ×5 (05:04→22:02)
[2020-11-30] MEDS: Ipratropium/Albuterol Sulfate 3 ML AMPUL.NEB INHALATION ×2 (07:21→15:41)
[2020-11-30 08:06] LABS: Bedside Glucose 315 mg/dL (70-110)
--- NOTE | 2020-11-30 08:17 | DCINST_ITS ---
- Discharge Diagnoses Current Active Problems: Current Active and Chronic Problems (Last Reviewed 07/22/20 @ 21:[address] Ranjeet Richardson MD) Fall (Acute) Elevated troponin (Acute) Hypertension (Chronic) Diabetes mellitus type 2 in obese (Chronic) Dyslipidemia (Chronic) Chronic stable Asthma (Chronic) You will use the following diet at home:: Calorie/Carbohydrate Controlled (specify 1200, 1400, etc) - 1800 ADA diet, Cardiac Your food should be the consistency of: Regular Discharge Activity: May Not Drive Weight Bearing Status: Weight bearing as tolerated Call your doctor if you observe: Fever of 101 or Higher, Coldness, Increased Pain, Numbness or Tingling, Change in Color, Inability to urinate, Inability to have a bowel movement, Using more than one pad per hour, Shortness of breath, Dizziness, Fainting spells, Swelling in the ankles, Chest pain, Prolonged hiccoughing, Increased palpitations (irregular heartbeat), Calf discomfort, Uncontrolled pain Additional Instructions: Follow-up mental health psychologist or psychiatrist in 2 to 3 weeks for history of generalized anxiety disorder, amnesia Patient is discharged on 30-day event monitor. Follow-up cardiology/Dr. Sheri chahal for review of event monitor Allergies/Adverse Reactions: Allergies ciprofloxacin Allergy (Verified 11/25/20 16:42) Unknown hydrochlorothiazide Allergy (Verified 11/25/20 16:42) Unknown pentazocine [From Talwin] Allergy (Verified 11/25/20 16:42) Unknown Medications to take at Discharge Omeprazole [Prilosec] 20 mg PO DAILY 12/19/13 Topiramate [Topamax] 50 mg PO BID 12/19/13 Albuterol Aerosols [Ventolin Aerosols] 2.5 mg INHALATION Q4H PRN PRN 05/09/14 Lamotrigine [Lamictal] 300 mg PO BID 07/22/20 Acyclovir [Zovirax] 1 tablet PO 5X/DAY 11/26/20 Hydrocodone/Acetaminophen [Hydrocodone-Acetamin 5-325 mg] 1 each PO Q6H PRN PRN 11/26/20 Multivitamin with Minerals [Multiple Vitamin] 1 each PO DAILY 11/26/20 Aspirin [Aspirin, Baby] 81 mg PO DAILY@0800 #30 tab.chew 11/30/20 Atorvastatin Calcium [Lipitor] 40 mg PO QHS #30 tablet 11/30/20 Carvedilol [Coreg (Beta Sedrick)] 12.5 mg PO BID #60 tablet 11/30/20 Clopidogrel Bisulfate [Plavix] 75 mg PO DAILY #30 tablet 11/30/20 Insulin NPH Human [Humulin N Pen] 10 units SC DAILY #0 11/30/20 Insulin NPH Human [Humulin N Pen] 20 units SC QHS #0 11/30/20 Lisinopril 10 mg PO BID #0 11/30/20 Lorazepam [Ativan] 0.5 mg PO TID PRN #0 11/30/20 Metformin HCl 500 mg PO BID #60 tablet 11/30/20 Paroxetine HCl 30 mg PO DAILY #0 11/30/20 Phenobarbital 32.4 mg PO TID #0 11/30/20 glipiZIDE [Glucotrol] 5 mg PO BIDAC #60 tab 11/30/20 The following prescriptions were given: Aspirin [Aspirin, Baby] 81 mg PO DAILY@0800 #30 tab.chew Transmission Status: [facility] Carvedilol [Coreg (Beta Sedrick)] 12.5 mg PO BID #60 tablet Transmission Status: [facility] glipiZIDE [Glucotrol] 5 mg PO BIDAC #60 tab Transmission Status: [facility] Atorvastatin Calcium [Lipitor] 40 mg PO QHS #30 tablet Transmission Status: [facility] by [facility] Metformin HCl 500 mg PO BID #60 tablet Transmission Status: Received by [facility] Clopidogrel Bisulfate [Plavix] 75 mg PO DAILY #30 tablet Transmission Status: Received by [id number] Primary Care Physician: Yovanny Ruano MD [Primary Care Provider] - Please follow up with your Primary Care Physician in: in 2 weeks Test Results: Test results from this visit will be discussed in further detail at your follow- up appointment, if applicable. Please Follow Up With: Link Owens MD When: in 2-3 weeks
[2020-11-30] MEDS: Insulin Lispro 100 UNIT/ML INSULN.PEN SC ×3 (08:39→17:32)
[2020-11-30] MEDS: Aspirin 81 MG TAB.CHEW PO (08:41)
[2020-11-30] MEDS: Clopidogrel Bisulfate 75 MG Tablet PO (08:41)
[2020-11-30] MEDS: Senna/Docusate Sodium 1 Tablet 2 TABLET PO (08:41)
[2020-11-30] MEDS: Pantoprazole Sodium 20 MG Tablet PO (08:42)
[2020-11-30] MEDS: Enoxaparin 30 MG/0.3 ML Syringe SC (08:42)
[2020-11-30] MEDS: Lisinopril 10 MG Tablet PO ×2 (08:42→22:02)
[2020-11-30] MEDS: Carvedilol 12.5 MG Tablet PO ×2 (08:42→22:01)
[2020-11-30] MEDS: Topiramate 50 MG Tablet PO ×2 (08:43→22:03)
[2020-11-30] MEDS: Insulin Lispro 100 UNIT/ML INSULN.PEN 8 UNIT SC ×3 (08:43→17:33)
[2020-11-30] MEDS: lamoTRIgine 100 MG Tablet 200 MG PO ×2 (08:45→22:03)
[2020-11-30 09:11] LABS: Anion Gap 7 (5-15); BUN 15 mg/dL (7-18); BUN/Creat Ratio 19.7 RATIO (10-20); Calcium,Total 8.7 mg/dL (8.5-10.1); Chloride 103 mmol/L (98-107); Creatinine, Serum 0.76 mg/dL (0.55-1.02); EST Glomerular Filtration Rate 80 mL/min (>60); Est Glom Filt Rate - Afr Amer 97 mL/min (>60); Glucose 334 mg/dL (74-106); Magnesium 1.9 mg/dL (1.6-2.6); Potassium 3.7 mmol/L (3.5-5.1); Sodium Level 134 mmol/L (136-145)
[2020-11-30] MEDS: Ondansetron 4 MG/2 ML Vial IV (10:16)
--- NOTE | 2020-11-30 11:31 | PHA.DC.MR ---
Pharmacy Service has performed discharge medication reconciliation for this patient. The patient's discharge medication list was reviewed for discrepancies and discrepancies were resolved. Home Medications Omeprazole [Prilosec] 20 mg PO DAILY 12/19/13 Topiramate [Topamax] 50 mg PO BID 12/19/13 Albuterol Aerosols [Ventolin Aerosols] 2.5 mg INHALATION Q4H PRN PRN 05/09/14 Lamotrigine [Lamictal] 300 mg PO BID 07/22/20 Acyclovir [Zovirax] 1 tablet PO 5X/DAY 11/26/20 Hydrocodone/Acetaminophen [Hydrocodone-Acetamin 5-325 mg] 1 each PO Q6H PRN PRN 11/26/20 Multivitamin with Minerals [Multiple Vitamin] 1 each PO DAILY 11/26/20 Aspirin [Aspirin, Baby] 81 mg PO DAILY@0800 #30 tab.chew 11/30/20 Atorvastatin Calcium [Lipitor] 40 mg PO QHS #30 tablet 11/30/20 Carvedilol [Coreg (Beta Sedrick)] 12.5 mg PO BID #60 tablet 11/30/20 Clopidogrel Bisulfate [Plavix] 75 mg PO DAILY #30 tablet 11/30/20 Insulin NPH Human [Humulin N Pen] 10 units SC DAILY #0 11/30/20 Insulin NPH Human [Humulin N Pen] 20 units SC QHS #0 11/30/20 Lisinopril 10 mg PO BID #0 11/30/20 Lorazepam [Ativan] 0.5 mg PO TID PRN #0 11/30/20 Metformin HCl 500 mg PO BID #60 tablet 11/30/20 Paroxetine HCl 30 mg PO DAILY #0 11/30/20 Phenobarbital 32.4 mg PO TID #0 11/30/20 glipiZIDE [Glucotrol] 5 mg PO BIDAC #60 tab 11/30/20
[2020-11-30 11:46] LABS: Erythrocyte Sedimentation Rate 49 mm/hr (0-30)
[2020-11-30 11:52] LABS: Cholesterol 228 mg/dL (200); High Density Lipoprotein 42 mg/dL; Triglycerides 218 mg/dL; Very Low Density Lipoprotein 44 mg/dL (5-40)
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
[2020-11-30 12:07] LABS: Hemoglobin A1c 10.2 % (3.8-5.6)
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
[2020-11-30 12:25] LABS: Bedside Glucose 275 mg/dL (70-110)
--- NOTE | 2020-11-30 12:31 | NURSING ---
daughter and daughter in law not seeing eye to eye on dc plans. hai in talking with pt over dc now saying that daugher in law not comfortable taking home d/t needing 2 assist
--- NOTE | 2020-11-30 13:34 | CASEMGMT ---
Addendum entered by Marcia Encinas 11/30/20 14:01: BRANDI received a return call from [facility] at [facility] and she said she spoke with Leesa and their business office person. They are now aware they are a [facility] contracted facility. They will review the referral and get back to BRANDI. Marcia FOREMAN Original Note: BRANDI received a voice mail from Leesa at [facility] and she said they are not a VA contracted facility. BRANDI called Bin at [facility] and she will contact [facility] letting them know they are a [facility] contracted facility. She will call SW back. Marcia FOREMAN
--- NOTE | 2020-11-30 15:03 | CASEMGMT ---
BRANDI called [facility] and Leesa was in a meeting and Lauren is gone for the day. She will have Leesa call BRANDI when she is done with her meeting. All necessary information to obtain authorization from [facility] for SNF has been faxed to Bin at the [facility]. Await return call from Leesa at [facility]. BRANDI told patient and her grandson that nothing will likely happen today, but if something changes BRANDI will notify them. RN, charge weigher, and physician updated. Awaiting [facility]'s response and [facility] approval. Marcia Encinas OVEN BAKER AHSAN
[2020-11-30 17:07] LABS: Lamotrigine (Lamictal) Level 2.3 ug/mL (2.0-20.0)
[2020-11-30 17:45] LABS: Bedside Glucose 235 mg/dL (70-110)
--- NOTE | 2020-11-30 19:12 | PN_ITS ---
Patient Problems: Active and Suspected Problems (Last Reviewed 07/22/20 @ 21:[address] Ranjeet Richardson MD) Fall (Acute) Elevated troponin (Acute) Reason for Visit: Follow-up for right patchy posterior ischemic infarct. Objective: Patient is still having behavioral symptoms and anxiety attack. Patient woke up last night for the fear that she s cannot breathe and will with gasping for air Physical exam General: Awake, oriented to time and place but intermittent confusion and anxiety attack HEENT: Atraumatic, PERRLA, EOMI, Normocephalic, decreased field of vision on right peripheral upper quadrant. Oral: No Gingival or Mucosal Lesions/ Ulcerations Neck: Supple, No JVD, Negative Carotid Bruits Lungs: Air entry diminished in bilateral lung bases. No crepitation/rhonchi Cardiovascular: Sinus tachycardia, Normal S1, Normal S2, No murmurs Abdomen: Bowel Sounds Present, Soft, Non Tender, Non-Distended : No renal angle tenderness. No suprapubic tenderness. Extremities: No edema, Capillary Refill Less than 3 Seconds Skin: No rashes, No breakdown Musculoskeletal: No Tenderness to Palpation of Joints or Extremities Neurological: Cranial nerves II-XII grossly intact, Deep Tendon Reflexes 2+/4 and Symmetrical, Neuro grossly intact Psych/Mental Status: Anxious, depressed. Vitals/I&O's: Vital Signs Temp Pulse Resp BP Pulse Ox 98.5 F 78 16 143/72 H 94 11/30/20 17:54 11/30/20 17:54 11/30/20 17:54 11/30/20 17:54 11/30/20 17:54 Oxygen Flow Rate (L/min) 2 Oxygen Delivery Method Room Air Weight: 258 lb 0.006 oz Body Mass Index (BMI) 41.6 Finger Stick Blood Glucose 198 Intake and Output for Last 24 Hours 11/28/20 11/29/20 11/30/20 23:59 23:59 23:59 Intake Total 480 / 530 1250 / 1250 2200 / 2200 Output Total 950 / 1450 2450 / 2450 1150 / 1150 Balance -470 / -920 -1200 / -1200 1050 / 1050 Laboratory Results 11/26/20 14:45: Lamotrigine 2.3 11/29/20 21:27: POC Glucose 230 H 11/30/20 07:51: POC Glucose 315 H 11/30/20 08:46: Sodium 134 L, Potassium 3.7, Chloride 103, Carbon Dioxide 24.0, Anion Gap 7, BUN 15, Creatinine 0.76, Estim Creat Clear Calc 49.00, Est GFR (MDRD) Af Amer 97, Est GFR (MDRD) Non-Af 80, BUN/Creatinine Ratio 19.7, Glucose 334 H, Calcium 8.7, Magnesium 1.9 11/30/20 08:46: Triglycerides 218 H, Cholesterol 228 H, LDL Cholesterol 142 H, VLDL Cholesterol 44 H, HDL Cholesterol 42 11/30/20 08:46: ESR 49 H 11/30/20 08:46: Hemoglobin A1c 10.2 H 11/30/20 11:43: POC Glucose 275 H 11/30/20 17:27: POC Glucose 235 H Current Medications Acetaminophen (Acetaminophen 325 Mg Tablet) 650 mg PO Q6H PRN PRN PRN Reason: Pain Score 1-10/Temp > 100.7 F Last Admin: 11/29/20 18:54 Dose: 650 mg Documented by: Acyclovir (Acyclovir 800 Mg Tablet) 800 mg PO 5X/DAY [facility] Last Admin: 11/30/20 17:32 Dose: 800 mg Documented by: Albuterol/Ipratropium (Ipratropium/Albuterol Sulfate 3 Ml Ampul.Neb) 3 ml INHALATION Q6H.RT [facility] Last Admin: 11/30/20 15:41 Dose: 3 ml Documented by: Aspirin (Aspirin 81 Mg Tab.Chew) 81 mg PO DAILY@0800 [facility] Last Admin: 11/30/20 08:41 Dose: 81 mg Documented by: Atorvastatin Calcium (Atorvastatin Calcium 40 Mg Tablet) 40 mg PO QHS [facility] Last Admin: 11/29/20 21:37 Dose: 40 mg Documented by: Calcium Carbonate (Calcium Carbonate 500 Mg Tablet) 500 mg PO Q4H PRN PRN PRN Reason: INDIGESTION Last Admin: 11/26/20 22:15 Dose: 500 mg Documented by: Carvedilol (Carvedilol 12.5 Mg Tablet) 12.5 mg PO BID [facility] Last Admin: 11/30/20 08:42 Dose: 12.5 mg Documented by: Clopidogrel Bisulfate (Clopidogrel Bisulfate 75 Mg Tablet) 75 mg PO DAILY [facility] Last Admin: 11/30/20 08:41 Dose: 75 mg Documented by: Enoxaparin Sodium (Enoxaparin 40 Mg/0.4 Ml Syringe) 40 mg SC DAILY [facility] Hydralazine HCl (Hydralazine 20 Mg/Ml Vial) 10 mg IV Q6H PRN PRN PRN Reason: for SBP>160 Last Admin: 11/30/20 03:59 Dose: 10 mg Documented by: Insulin Glargine (Insulin Glargine 100 Units/Ml Pen) 30 units SC 1100 [facility] Last Admin: 11/30/20 11:47 Dose: 30 u Documented by: Insulin Glargine (Insulin Glargine 100 Units/Ml Pen) 10 units SC QHS [facility] Last Admin: 11/29/20 21:38 Dose: 10 units Documented by: Insulin Human Lispro (Insulin Lispro 100 Unit/Ml Insuln.Pen) 0 unit SC ACHS [facility]; Protocol Last Admin: 11/30/20 17:32 Dose: 3 unit Documented by: Insulin Human Lispro (Insulin Lispro 100 Unit/Ml Insuln.Pen) 8 unit SC TIDAC [facility] Last Admin: 11/30/20 17:33 Dose: 8 u Documented by: Lamotrigine (Lamotrigine 100 Mg Tablet) 200 mg PO BID [facility] Last Admin: 11/30/20 08:45 Dose: 200 mg Documented by: Lisinopril (Lisinopril 10 Mg Tablet) 10 mg PO BID [facility] Last Admin: 11/30/20 08:42 Dose: 10 mg Documented by: Nitroglycerin (Nitroglycerin Oint 1 Inch Packet) 1 inch TD Q6 [facility] Last Admin: 11/30/20 17:31 Dose: 1 inch Documented by: Nystatin (Nystatin Powder 15gm Bottle) 1 applic TOPICAL BID [facility]; Protocol Ondansetron HCl (Ondansetron 4 Mg/2 Ml Vial) 4 mg IV Q8H PRN PRN PRN Reason: NAUSEA/VOMITING Last Admin: 11/30/20 10:16 Dose: 4 mg Documented by: Pantoprazole Sodium (Pantoprazole Sodium 20 Mg Tablet) 20 mg PO DAILY [facility] Last Admin: 11/30/20 08:42 Dose: 20 mg Documented by: Senna/Docusate Sodium (Senna/Docusate Sodium 1 Tablet) 2 tablet PO BID PRN PRN PRN Reason: Constipation Last Admin: 11/27/20 09:05 Dose: 2 tablet Documented by: Senna/Docusate Sodium (Senna/Docusate Sodium 1 Tablet) 2 tablet PO DAILY [facility] Last Admin: 11/30/20 08:41 Dose: 2 tablet Documented by: Sodium Chloride (0.9% Saline Lock 10 Ml Syringe) 10 - 40 ml IV UD PRN PRN Reason: SALINE FLUSH Last Admin: 11/30/20 10:16 Dose: 10 ml Documented by: Throat Lozenges (Benzocaine/Menthol 1 Lozenge) 1 lozenge MUCOUS MEM Q2H PRN PRN PRN Reason: SORE THROAT Last Admin: 11/26/20 13:13 Dose: 1 lozenge Documented by: Topiramate (Topiramate 50 Mg Tablet) 50 mg PO BID [facility] Last Admin: 11/30/20 08:43 Dose: 50 mg Documented by: STROKE Vital Signs/Narrative: Vital Signs Temp Pulse Resp BP Pulse Ox 11/30/20 17:54 98.5 F 78 16 143/72 H 94 11/30/20 17:31 78 143/72 H 11/30/20 16:39 76 11/30/20 15:41 79 16 Medical Necessity - Tobacco Use Smoking Status: Never smoker Tobacco Use: Non-smoker Assessment/Plan All Active Problems (Last Reviewed 07/22/20 @ 21:[address] Ranjeet Richardson MD) Fall (Acute) Elevated troponin (Acute) This 70-year-old female admitted with altered mental status, generalized weakness, debility and fall 1. Generalized weakness and debility with frequent falls and decreased activities of daily living: Discussed with patient's daughter. He has been ticket worker on board. PT and OT. 2. History of seizure, exact classification type and etiology unclear: Lamictal level is pending. Resume Topamax and Lamictal. Hold phenobarbitone. MRI brain ordered. Neurology consult for further opinion regarding seizure. EEG was done and shows generalized slowing of waves but no epileptogenic focus. 11/29: Discussed with the neurologist. He agreed with resumption of Lamictal 200 mg twice daily and Topamax 50 mg twice daily that was done on 11/28. Lamictal level still pending. Patient did not had any seizure episode during hospital course. 11/30: No more seizure episode. Will hold for phenobarbitone as patient is doing good on Topamax and lamotrigine and more sober patient is having confusion and anxiety state. 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 He agrees with aspirin, Plavix and high intensity statin. 2D echo shows intact atrial septum. Advised 30-day event monitor. Neurology recommendation followed. ESR 49. Fasting profile shows triglyceride 218, LDL 142, total cholesterol 228. Atorvastatin increased to 80 mg daily. Patient ready for discharge but changed her mind and wants to go to SNF. 3. Elevated troponin/NSTEMI: Patient denies any chest pain now. Patient had fall and as per previous hospitalist documentation, chest pain was reproducible with palpation as she fell on her left side. Echo on 11/25 with EF of 50 to 55% with apical hypokinesis, this is diminished compared to her previous echo on 07/01/2020 with an EF of 65% and normal left ventricular systolic function. I discussed with editing intern Dr. Fairbanks and he thinks currently no indication for cardiac cath but follow-up as an outpatient. Continue Coreg and Lipitor, lisinopril and baby aspirin. 11/29: Patient again complained of chest pain and EKG was done which did not show any acute change as compared to previous EKG. Troponin ordered. Earlier discussed with the editing intern and advised outpatient evaluation. 3. DM 2: Glucose is elevated. Insulin uptitrated. 4. Leukocytosis: Most likely reactive. UA and chest x-ray is unremarkable. WBC count improved most recent normal. DVT: Lovenox Total time of the visit including total time spent in counseling or coordination of care, (more than 50% of the total time, spent in obtaining medical information from nurses and other ancillary care providers,explaining to the patient about labs, imaging, diagnosis and management), discussion with the daughter, review of labs and imaging is 30 minutes. Clinical Impression(s) from Imaging Studies Brain CT 11/25/20 16:46 IMPRESSION: Mild periventricular white matter ischemic changes. No evidence for acute intracranial bleed.. Electronically Signed: Everton Abraham MD at 18:07 EDT , Service support , Echocardiogram 11/25/20 19:03 Interpretation Summary The estimated ejection fraction is EF 50-55% with apical Hypokinesia %. Brain MRI 11/28/20 15:31 IMPRESSION: Acute infarct right posterior cerebral artery territory Head/Neck CTA 11/29/20 08:21 IMPRESSION: Nonvisualization of the right posterior to indicating artery. Laboratory Results 11/28/20 16:50: POC Glucose 367 H 11/28/20 20:47: POC Glucose 279 H 11/29/20 08:23: POC Glucose 309 H 11/29/20 11:44: POC Glucose 251 H Inpatient E&M: 48670 Subs Hosp L2
[2020-11-30 21:46] LABS: Bedside Glucose 128 mg/dL (70-110)
[2020-11-30] MEDS: Phenobarbital 32.4 MG Tablet PO (22:02)
[2020-11-30] MEDS: Atorvastatin Calcium 80 MG Tablet PO (22:02)
[2020-11-30] MEDS: Acetaminophen 325 MG Tablet 650 MG PO (22:02)
[2020-11-30] MEDS: Nystatin Powder 15gm Bottle 1 APPLIC TOPICAL (22:03)
[2020-12-01] VITALS (13 sets, daily range): BP systolic 130–159; BP diastolic 62–78; PULSE 71–80; RESP 15–18; TEMP 36.6–36.7; O2SAT 94–98
[2020-12-01] MEDS: Acyclovir 800 MG Tablet PO ×5 (06:20→22:05)
[2020-12-01] MEDS: Phenobarbital 32.4 MG Tablet PO ×3 (06:21→22:40)
[2020-12-01] MEDS: Ipratropium/Albuterol Sulfate 3 ML AMPUL.NEB INHALATION (07:29)
[2020-12-01] MEDS: Topiramate 50 MG Tablet PO ×2 (09:18→22:06)
[2020-12-01] MEDS: Clopidogrel Bisulfate 75 MG Tablet PO (09:18)
[2020-12-01] MEDS: Pantoprazole Sodium 20 MG Tablet PO (09:18)
[2020-12-01] MEDS: Paroxetine 20 MG Tablet PO (09:18)
[2020-12-01] MEDS: Senna/Docusate Sodium 1 Tablet 2 TABLET PO (09:19)
[2020-12-01] MEDS: Lisinopril 10 MG Tablet PO ×2 (09:19→22:05)
[2020-12-01] MEDS: lamoTRIgine 100 MG Tablet 200 MG PO ×2 (09:19→22:05)
[2020-12-01] MEDS: Carvedilol 12.5 MG Tablet PO ×2 (09:20→22:05)
[2020-12-01] MEDS: Aspirin 81 MG TAB.CHEW PO (09:20)
[2020-12-01] MEDS: Insulin Lispro 100 UNIT/ML INSULN.PEN 8 UNIT SC ×3 (09:22→16:29)
[2020-12-01] MEDS: Insulin Lispro 100 UNIT/ML INSULN.PEN SC ×3 (09:22→22:07)
[2020-12-01] MEDS: Enoxaparin 40 MG/0.4 ML Syringe SC (09:24)
[2020-12-01] MEDS: Nystatin Powder 15gm Bottle 1 APPLIC TOPICAL ×2 (09:25→22:06)
[2020-12-01] MEDS: Acetaminophen 325 MG Tablet 650 MG PO ×2 (09:30→16:35)
[2020-12-01 09:31] LABS: Bedside Glucose 210 mg/dL (70-110)
--- NOTE | 2020-12-01 09:53 | CASEMGMT ---
Addendum entered by Marcia Encinas 12/01/20 11:51: BRANID received a call from Lauren at [facility] and she said they will accept patient. SW told her SW will let her know when SW hears something from [facility]. BRANDI notified patient and RN. BRANDI called Bin at the [facility] and let her know [facility] accepted patient. She said she will call [facility] and check with the skilled team on the status of patient's case. Plan: d/c to [facility] pending [facility] approval. Marcia FOREMAN Original Note: BRANDI called Lauren at [facility] to see if they have made a decision on patient. She is reviewing her information now. She said she will talk with the team and get back to BRANDI. Marcia FOREMAN
[2020-12-01] MEDS: Nitroglycerin Oint 1 INCH PACKET TD ×3 (12:31→23:04)
[2020-12-01 12:35] LABS: Bedside Glucose 177 mg/dL (70-110)
--- NOTE | 2020-12-01 14:50 | CASEMGMT ---
SW went back into patient's room. She apparently made some comments to therapy about not wanting to go on and to be done with this. She asked them to give her a gun as she doesn't want to live like this. BRANDI met with patient. SW asked her about these comments. She said she is depressed that she cannot see. She said she hurts all over. SW provided emotional support and let her know it often takes time for things to recover. BRANDI told her that when she gets to [facility] she can start her rehab. She said she is waiting and no one has told her anything about the [facility]. BRANDI reminded her SW spoke with her earlier today and told her [facility] can take her, but we have to wait on the [place] to give us the approval. BRANDI told her she just has to be patient and things will work out. BRANDI reminded her that her family already has a plan for her to go stay with her son when she leaves the [facility]. BRANDI reminded her of her grandson who normally comes and sees her every day at home. She said she is just frustrated. BRANDI again provided emotional support. Marcia Encinas MSW AHSAN
--- NOTE | 2020-12-01 15:40 | CASEMGMT ---
BRANDI called patient's son and left him a voice mail requesting a return call to update him. Patient's grandson came in. BRANDI stopped by the room and told him it is a good thing he is here as patient is depressed. He said he knows, he is trying to talk with her. BRANDI told him [facility] her we are just waiting on the [facility] to [facility] her to go. Patient asked what we are waiting on and BRANDI reiterated to her that we are waiting on the [facility] to approve her. BRANDI then told him that because patient has not had her COVID vaccines she will have to quarantine for 14 days and that means no visitors. BRANDI told him BRANDI has not told patient this yet. He said he needs to make some phone calls. BRANDI spoke with Lauren at [facility] and let her know we have not heard from the [facility] yet. Marcia FOREMAN
[2020-12-01 17:01] LABS: Bedside Glucose 198 mg/dL (70-110)
--- NOTE | 2020-12-01 17:37 | PCM.PN.HOSP ---
Patient Problems: Active and Suspected Problems (Last Reviewed 07/22/20 @ 21:[address] Ranjeet Richardson MD) Fall (Acute) Elevated troponin (Acute) Reason for Visit: Follow-up for a stroke, altered mental status and physical decline Objective: No new symptoms. Patient is still gets anxiety attack and nightmares. Physical exam General: Awake, oriented to time and place. HEENT: Atraumatic, PERRLA, EOMI, Normocephalic, decreased field of vision on right peripheral upper quadrant. Oral: No Gingival or Mucosal Lesions/ Ulcerations Neck: Supple, No JVD, Negative Carotid Bruits Lungs: Air entry diminished in bilateral lung bases. No crepitation/rhonchi Cardiovascular: Sinus tachycardia, Normal S1, Normal S2, No murmurs Abdomen: Bowel Sounds Present, Soft, Non Tender, Non-Distended : No renal angle tenderness. No suprapubic tenderness. Extremities: No edema, Capillary Refill Less than 3 Seconds Skin: No rashes, No breakdown Musculoskeletal: No Tenderness to Palpation of Joints or Extremities Neurological: Cranial nerves II-XII grossly intact, Deep Tendon Reflexes 2+/4 and Symmetrical, Neuro grossly intact Psych/Mental Status: Anxious, depressed. Vitals/I&O's: Vital Signs Temp Pulse Resp BP Pulse Ox 97.9 F 79 18 130/62 H 98 12/01/20 15:10 12/01/20 15:10 12/01/20 15:10 12/01/20 15:10 12/01/20 15:10 Oxygen Flow Rate (L/min) 2 Oxygen Delivery Method Room Air Weight: 258 lb 0.006 oz Body Mass Index (BMI) 41.6 Finger Stick Blood Glucose 198 Intake and Output for Last 24 Hours 11/29/20 11/30/20 12/01/20 23:59 23:59 23:59 Intake Total 1250 / 1250 2440 / 2440 340 / 340 Output Total 2450 / 2450 1350 / 1350 100 / 100 Balance -1200 / -1200 1090 / 1090 240 / 240 Laboratory Results 11/30/20 17:27: POC Glucose 235 H 11/30/20 21:42: POC Glucose 128 H 12/01/20 08:59: POC Glucose 210 H 12/01/20 12:11: POC Glucose 177 H 12/01/20 16:26: POC Glucose 198 H Current Medications Acetaminophen (Acetaminophen 325 Mg Tablet) 650 mg PO Q6H PRN PRN PRN Reason: Pain Score 1-10/Temp > 100.7 F Last Admin: 12/01/20 16:35 Dose: 650 mg Documented by: Acyclovir (Acyclovir 800 Mg Tablet) 800 mg PO 5X/DAY [facility] Last Admin: 12/01/20 13:12 Dose: 800 mg Documented by: Albuterol/Ipratropium (Ipratropium/Albuterol Sulfate 3 Ml Ampul.Neb) 3 ml INHALATION Q6H.RT [facility] Last Admin: 12/01/20 07:29 Dose: 3 ml Documented by: Aspirin (Aspirin 81 Mg Tab.Chew) 81 mg PO DAILY@0800 [facility] Last Admin: 12/01/20 09:20 Dose: 81 mg Documented by: Atorvastatin Calcium (Atorvastatin Calcium 80 Mg Tablet) 80 mg PO QHS [facility] Last Admin: 11/30/20 22:02 Dose: 80 mg Documented by: Calcium Carbonate (Calcium Carbonate 500 Mg Tablet) 500 mg PO Q4H PRN PRN PRN Reason: INDIGESTION Last Admin: 11/26/20 22:15 Dose: 500 mg Documented by: Carvedilol (Carvedilol 12.5 Mg Tablet) 12.5 mg PO BID [facility] Last Admin: 12/01/20 09:20 Dose: 12.5 mg Documented by: Clopidogrel Bisulfate (Clopidogrel Bisulfate 75 Mg Tablet) 75 mg PO DAILY [facility] Last Admin: 12/01/20 09:18 Dose: 75 mg Documented by: Enoxaparin Sodium (Enoxaparin 40 Mg/0.4 Ml Syringe) 40 mg SC DAILY [facility] Last Admin: 12/01/20 09:24 Dose: 40 mg Documented by: Hydralazine HCl (Hydralazine 20 Mg/Ml Vial) 10 mg IV Q6H PRN PRN PRN Reason: for SBP>160 Last Admin: 11/30/20 03:59 Dose: 10 mg Documented by: Insulin Glargine (Insulin Glargine 100 Units/Ml Pen) 30 units SC 1100 [facility] Last Admin: 12/01/20 12:28 Dose: 30 u Documented by: Insulin Glargine (Insulin Glargine 100 Units/Ml Pen) 10 units SC QHS [facility] Last Admin: 11/30/20 21:54 Dose: Not Given Documented by: Insulin Human Lispro (Insulin Lispro 100 Unit/Ml Insuln.Pen) 0 unit SC ACHS [facility]; Protocol Last Admin: 12/01/20 16:29 Dose: 2 unit Documented by: Insulin Human Lispro (Insulin Lispro 100 Unit/Ml Insuln.Pen) 8 unit SC TIDAC [facility] Last Admin: 12/01/20 16:29 Dose: 8 u Documented by: Lamotrigine (Lamotrigine 100 Mg Tablet) 200 mg PO BID [facility] Last Admin: 12/01/20 09:19 Dose: 200 mg Documented by: Lisinopril (Lisinopril 10 Mg Tablet) 10 mg PO BID [facility] Last Admin: 12/01/20 09:19 Dose: 10 mg Documented by: Nitroglycerin (Nitroglycerin Oint 1 Inch Packet) 1 inch TD Q6 [facility] Last Admin: 12/01/20 12:31 Dose: 1 inch Documented by: Nystatin (Nystatin Powder 15gm Bottle) 1 applic TOPICAL BID [facility]; Protocol Last Admin: 12/01/20 09:25 Dose: 1 applic Documented by: Ondansetron HCl (Ondansetron 4 Mg/2 Ml Vial) 4 mg IV Q8H PRN PRN PRN Reason: NAUSEA/VOMITING Last Admin: 11/30/20 10:16 Dose: 4 mg Documented by: Pantoprazole Sodium (Pantoprazole Sodium 20 Mg Tablet) 20 mg PO DAILY [facility] Last Admin: 12/01/20 09:18 Dose: 20 mg Documented by: Paroxetine HCl (Paroxetine 20 Mg Tablet) 20 mg PO DAILY [facility] Last Admin: 12/01/20 09:18 Dose: 20 mg Documented by: Phenobarbital (Phenobarbital 32.4 Mg Tablet) 32.4 mg PO TID [facility] Last Admin: 12/01/20 13:12 Dose: 32.4 mg Documented by: Senna/Docusate Sodium (Senna/Docusate Sodium 1 Tablet) 2 tablet PO BID PRN PRN PRN Reason: Constipation Last Admin: 11/27/20 09:05 Dose: 2 tablet Documented by: Senna/Docusate Sodium (Senna/Docusate Sodium 1 Tablet) 2 tablet PO DAILY [facility] Last Admin: 12/01/20 09:19 Dose: 2 tablet Documented by: Sodium Chloride (0.9% Saline Lock 10 Ml Syringe) 10 - 40 ml IV UD PRN PRN Reason: SALINE FLUSH Last Admin: 11/30/20 10:16 Dose: 10 ml Documented by: Throat Lozenges (Benzocaine/Menthol 1 Lozenge) 1 lozenge MUCOUS MEM Q2H PRN PRN PRN Reason: SORE THROAT Last Admin: 11/26/20 13:13 Dose: 1 lozenge Documented by: Topiramate (Topiramate 50 Mg Tablet) 50 mg PO BID [facility] Last Admin: 12/01/20 09:18 Dose: 50 mg Documented by: STROKE Vital Signs/Narrative: Vital Signs Temp Pulse Resp BP Pulse Ox 12/01/20 15:10 97.9 F 79 18 130/62 H 98 12/01/20 15:00 80 Medical Necessity - Tobacco Use Smoking Status: Never smoker Tobacco Use: Non-smoker Assessment/Plan All Active Problems (Last Reviewed 07/22/20 @ 21:[address] Ranjeet Richardson MD) Fall (Acute) Elevated troponin (Acute) This 70-year-old female admitted with altered mental status, generalized weakness, debility and fall 1. Generalized weakness and debility with frequent falls and decreased activities of daily living: Discussed with patient's daughter. He has been social media marketer on board. PT and OT. 2. History of seizure, exact classification type and etiology unclear: Lamictal level is pending. Resume Topamax and Lamictal. Hold phenobarbitone. MRI brain ordered. Neurology consult for further opinion regarding seizure. EEG was done and shows generalized slowing of waves but no epileptogenic focus. 11/29: Discussed with the neurologist. He agreed with resumption of Lamictal 200 mg twice daily and Topamax 50 mg twice daily that was done on 11/28. Lamictal level still pending. Patient did not had any seizure episode during hospital course. 11/30: No more seizure episode. Will hold for phenobarbitone as patient is doing good on Topamax and lamotrigine and more sober patient is having confusion and anxiety state. 12/01: Patient was put back on phenobarbitone. 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 He agrees with aspirin, Plavix and high intensity statin. 2D echo shows intact atrial septum. Advised 30-day event monitor. Neurology recommendation followed. ESR 49. Fasting profile shows triglyceride 218, LDL 142, total cholesterol 228. Atorvastatin increased to 80 mg daily. Patient ready for discharge but changed her mind and wants to go to SNF. Awaiting pre-CERT. 3. Elevated troponin/NSTEMI: Patient denies any chest pain now. Patient had fall and as per previous hospitalist documentation, chest pain was reproducible with palpation as she fell on her left side. Echo on 11/25 with EF of 50 to 55% with apical hypokinesis, this is diminished compared to her previous echo on 07/01/2020 with an EF of 65% and normal left ventricular systolic function. I discussed with stave block roller Dr. Fairbanks and he thinks currently no indication for cardiac cath but follow-up as an outpatient. Continue Coreg and Lipitor, lisinopril and baby aspirin. 11/29: Patient again complained of chest pain and EKG was done which did not show any acute change as compared to previous EKG. Troponin ordered. Earlier discussed with the stave block roller and advised outpatient evaluation. 3. DM 2: Glucose is elevated. Insulin uptitrated. 4. Leukocytosis: Most likely reactive. UA and chest x-ray is unremarkable. WBC count improved most recent normal. DVT: Lovenox Total time of the visit including total time spent in counseling or coordination of care, (more than 50% of the total time, spent in obtaining medical information from nurses and other ancillary care providers,explaining to the patient about labs, imaging, diagnosis and management), discussion with the daughter, review of labs and imaging is 30 minutes. Clinical Impression(s) from Imaging Studies Brain CT 11/25/20 16:46 IMPRESSION: Mild periventricular white matter ischemic changes. No evidence for acute intracranial bleed.. Electronically Signed: Everton Abraham MD at 18:07 EDT , Service support , Echocardiogram 11/25/20 19:03 Interpretation Summary The estimated ejection fraction is EF 50-55% with apical Hypokinesia %. Brain MRI 11/28/20 15:31 IMPRESSION: Acute infarct right posterior cerebral artery territory Head/Neck CTA 11/29/20 08:21 IMPRESSION: Nonvisualization of the right posterior to indicating artery. Laboratory Results 11/30/20 17:27: POC Glucose 235 H 11/30/20 21:42: POC Glucose 128 H 12/01/20 08:59: POC Glucose 210 H 12/01/20 12:11: POC Glucose 177 H 12/01/20 16:26: POC Glucose 198 H Inpatient E&M: 04462 Subs Hosp L2
[2020-12-01] MEDS: Atorvastatin Calcium 80 MG Tablet PO (22:05)
[2020-12-01 22:36] LABS: Bedside Glucose 163 mg/dL (70-110)
[2020-12-02] VITALS (7 sets, daily range): BP systolic 134–149; BP diastolic 59–72; PULSE 64–76; RESP 16–18; TEMP 36.4–36.6; O2SAT 95–98
[2020-12-02] MEDS: Phenobarbital 32.4 MG Tablet PO ×2 (06:05→13:47)
[2020-12-02] MEDS: Acyclovir 800 MG Tablet PO ×4 (06:05→16:44)
[2020-12-02] MEDS: Nitroglycerin Oint 1 INCH PACKET TD ×3 (06:05→16:44)
[2020-12-02] MEDS: Acetaminophen 325 MG Tablet 650 MG PO (06:12)
[2020-12-02] MEDS: Topiramate 50 MG Tablet PO (08:31)
[2020-12-02] MEDS: Pantoprazole Sodium 20 MG Tablet PO (08:31)
[2020-12-02] MEDS: Lisinopril 10 MG Tablet PO (08:31)
[2020-12-02] MEDS: Clopidogrel Bisulfate 75 MG Tablet PO (08:31)
[2020-12-02] MEDS: Aspirin 81 MG TAB.CHEW PO (08:31)
[2020-12-02] MEDS: Carvedilol 12.5 MG Tablet PO (08:31)
[2020-12-02] MEDS: Senna/Docusate Sodium 1 Tablet 2 TABLET PO (08:31)
[2020-12-02] MEDS: lamoTRIgine 100 MG Tablet 200 MG PO (08:32)
[2020-12-02] MEDS: Paroxetine 20 MG Tablet PO (08:32)
[2020-12-02] MEDS: Insulin Lispro 100 UNIT/ML INSULN.PEN 8 UNIT SC ×3 (08:35→16:46)
[2020-12-02] MEDS: Insulin Lispro 100 UNIT/ML INSULN.PEN SC ×3 (08:36→16:44)
[2020-12-02] MEDS: Enoxaparin 40 MG/0.4 ML Syringe SC (08:37)
[2020-12-02] MEDS: Nystatin Powder 15gm Bottle 1 APPLIC TOPICAL (08:39)
[2020-12-02 08:50] LABS: Bedside Glucose 154 mg/dL (70-110)
--- NOTE | 2020-12-02 09:49 | CASEMGMT ---
Addendum entered by Marcia Encinas 12/02/20 11:50: SW received a call from Bin at [place]. She said she does not have an answer yet, but she did get a response from the skilled team that they will look at it. She will let SW know as soon as she hears something. Marcia FOREMAN Original Note: BRANDI called Bin [place] BRANDI and left her a voice mail inquiring if she has heard anything about approval for SNF or if she could check on it. Marcia FOREMAN
--- NOTE | 2020-12-02 11:09 | PCM.TXEXTCAR ---
- Diet 11/25/20 19:03 Diet: Cardiac: Calorie-Controlled Food consistency:: Easy to Chew Liquid Consistency:: Regular/Thin How many daily calories?: 1800 calorie - Routine Orders/Code Status Suppository Type: Dulcolax 10mg Suppository Frequency: Daily PRN Routine Lab Work: CBC - Therapies Weight Bearing: Weight bearing as tolerated Extremity Affected:: Bilateral Lower Physical Therapy: Eval and Treat Occupational Therapy: Eval and Treat Speech Therapy: Eval and Treat - Allergies/Procedures Done in Hospital Allergies/Adverse Reactions: Allergies ciprofloxacin Allergy (Verified 11/25/20 16:42) Unknown hydrochlorothiazide Allergy (Verified 11/25/20 16:42) Unknown pentazocine [From Talwin] Allergy (Verified 11/25/20 16:42) Unknown - Type of Care/Length of Stay Estimated LOS: Convalescent Care Less Than 30 days Type of Care Needed: Skilled Rehab Potential: Good Prognosis: Good - Additional Orders/Day of Discharge Day of Discharge: 12/02/20 - Dietary and Speech Recommendations Dietitian Recommendations/Changes: continue cardiac, 1800 calorie controlled diet; consider adding ONS if PO at meals fails. Speech Linguistic Eval Summary: Pt fully oriented indep. Able to follow all one and two step kinesthetic commands for oral mechanism examination and answer questions appropriately during conversational speech. No obvious deficits with verbal expression; pt denies anomia. Pt reports speech is at baseline; 100% intelligible to this unfamiliar listener in unknown contexts. Able to name 7 animals given 30 seconds in generative naming task. Recalled 3/3 unrelated words presented verbally immediately and after 10 minutes with distraction. Pt did become tearful during the session intermittently, demonstrating some emotional lability, as she would quickly return to pleasant/cooperative. Pt reporting that she is unable to see, though was unable to articulate what her vision difficulties are (when asked if vision is blurry or double, she reported I don't know if it's blurry or not but I just can't see right.) Pt tasked to tell time on clock. Pt required moderately extended time but was able to accurately give time (2:20) when prompted with question What are the hands pointing at? (Both hands were, therefore, pointing to right side). Pt given a sentence to read, requiring prompting to attempt, and only gave last word. [employer] stood to pt's left to complete paperwork, and, when complete, walked up to patient and spoke, with pt startling/gasping at [employer]'s re-appearance. Pt tasked to point and count dots on a sheet of paper. Pt began at midline and counted to right. She did eventually find several on bottom left, but not all. Tasked pt to read a single word, Meat, with pt verbalizing At. Pt was able to legibly write her name and prompted sentence I like to write without apparent difficulty. Pt is presenting with a left visual field neglect, warranting further skilled speech-language therapy. Pt and RN Froylan notified of defecit and POC. - Follow Up Care Primary Care Physician: Yovanny Ruano MD [Primary Care Provider] - Please follow up with your Primary Care Physician in: in 2 weeks Please Follow Up With: Link Owens MD When: in 2-3 weeks Please Follow Up With: Yovanny Ruano MD When: 2 weeks
--- NOTE | 2020-12-02 11:11 | PCM.DC.SUM ---
Discharge Date and Diagnosis - Problem List Patient Problems: Active and Suspected Problems (Last Reviewed 07/22/20 @ 21:[address] Ranjeet Richardson MD) Fall (Acute) Elevated troponin (Acute) Date of Admission: 11/25/20 Date of Discharge: 12/02/20 - Primary Discharge Diagnosis Acute Problems: Active Problems (Last Reviewed 07/22/20 @ 21:[address] Ranjeet Richardson MD) Fall (Acute) Elevated troponin (Acute) - Secondary Discharge Diagnosis Chronic Problems: Chronic Problems (Last Reviewed 07/22/20 @ 21:[address] Ranjeet Richardson MD) Hypertension (Chronic) Diabetes mellitus type 2 in obese (Chronic) Dyslipidemia (Chronic) Chronic stable Asthma (Chronic) Hospital Course and Treatment Operations: None, - - right shoulder reverse repair Summary of Care Provided: This 70-year-old female admitted with altered mental status, generalized weakness, debility and fall 1. Generalized weakness and debility with frequent falls and decreased activities of daily living: Discussed with patient's daughter. He has been adoption social worker on board. PT and OT. 2. History of seizure, exact classification type and etiology unclear: Lamictal level is pending. Resume Topamax and Lamictal. Hold phenobarbitone. MRI brain ordered. Neurology consult for further opinion regarding seizure. EEG was done and shows generalized slowing of waves but no epileptogenic focus. On 11/29: Discussed with the neurologist. He agreed with resumption of Lamictal 200 mg twice daily and Topamax 50 mg twice daily that was done on 11/28. Lamictal level 2.3. New seizure episode during admission or hospital course ruled out. Phenobarbitone was resumed at home dose. Patient discharged on home dose of Lamictal, phenobarbitone and Topamax. 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 He agrees with aspirin, Plavix and high intensity statin. 2D echo shows intact atrial septum. Advised 30-day event monitor. Prescription given. Neurology recommendation followed. ESR 49. Fasting profile shows triglyceride 218, LDL 142, total cholesterol 228. Atorvastatin increased to 80 mg daily. The patient is discharged to SNF. 3. Elevated troponin/NSTEMI: Patient denies any chest pain now. Patient had fall and as per previous hospitalist documentation, chest pain was reproducible with palpation as she fell on her left side. Echo on 11/25 with EF of 50 to 55% with apical hypokinesis, this is diminished compared to her previous echo on 07/01/2020 with an EF of 65% and normal left ventricular systolic function. I discussed with residential framing carpenter Dr. Fairbanks and he thinks currently no indication for cardiac cath but follow-up as an outpatient. Continue Coreg and Lipitor, lisinopril and baby aspirin. 11/29: Patient again complained of chest pain and EKG was done which did not show any acute change as compared to previous EKG. troponin normal. 3. DM 2: Glucose is elevated. Insulin uptitrated. Close in acceptable limit. 4. Leukocytosis: Most likely reactive. UA and chest x-ray is unremarkable. WBC count improved most recent normal. DVT: Lovenox Discharge medication reconciliation done. Discharge follow-up instructions completed. Discharge process discussed with the patient and all questions were answered to patient's satisfaction. She is discharged to [facility] Total time spent, exact 35 minutes on discharge meds reconciliation, examination, coordination of care with nurses and ancillary staff, review of imaging and blood test and discussion with the patient on follow-up instructions Patient Problems: Active and Suspected Problems (Last Reviewed 07/22/20 @ 21:[address] Ranjeet Richardson MD) Fall (Acute) Elevated troponin (Acute) Objective: Patient is awake and alert. Did not had nightmares/panic attack last night. More comfortable. Physical exam General: Awake, oriented to time and place. HEENT: Atraumatic, PERRLA, EOMI, Normocephalic, no improvement in field of vision on right peripheral upper quadrant hospital course. Oral: No Gingival or Mucosal Lesions/ Ulcerations Neck: Supple, No JVD, Negative Carotid Bruits Lungs: Air entry diminished in bilateral lung bases. No crepitation/rhonchi Cardiovascular: Sinus tachycardia, Normal S1, Normal S2, No murmurs Abdomen: Bowel Sounds Present, Soft, Non Tender, Non-Distended : No renal angle tenderness. No suprapubic tenderness. Extremities: No edema, Capillary Refill Less than 3 Seconds Skin: No rashes, No breakdown Musculoskeletal: No Tenderness to Palpation of Joints or Extremities Neurological: Cranial nerves II-XII grossly intact, Deep Tendon Reflexes 2+/4 and Symmetrical, Neuro grossly intact Psych/Mental Status: Anxious, depressed. - Physical Exam Vitals/I&O's: Vital Signs Temp Pulse Resp BP Pulse Ox 97.7 F L 91 17 163/74 H 96 11/30/20 03:50 11/30/20 07:44 11/30/20 03:50 11/30/20 05:04 11/30/20 03:50 Oxygen Flow Rate (L/min) 2 Oxygen Delivery Method Room Air Weight: 258 lb 0.006 oz Body Mass Index (BMI) 41.6 Finger Stick Blood Glucose 198 Intake and Output for Last 24 Hours 11/28/20 11/29/20 11/30/20 23:59 23:59 23:59 Intake Total 480 / 530 1250 / 1250 1240 / 1240 Output Total 950 / 1450 2450 / 2450 700 / 700 Balance -470 / -920 -1200 / -1200 540 / 540 Laboratory Results 11/29/20 08:23: POC Glucose 309 H 11/29/20 11:44: POC Glucose 251 H 11/29/20 16:04: POC Glucose 191 H 11/29/20 16:34: Troponin I 0.032 11/29/20 21:27: POC Glucose 230 H 11/30/20 07:51: POC Glucose 315 H Current Medications Acetaminophen (Acetaminophen 325 Mg Tablet) 650 mg PO Q6H PRN PRN PRN Reason: Pain Score 1-10/Temp > 100.7 F Last Admin: 11/29/20 18:54 Dose: 650 mg Documented by: Acyclovir (Acyclovir 800 Mg Tablet) 800 mg PO 5X/DAY [facility] Last Admin: 11/30/20 05:04 Dose: 800 mg Documented by: Albuterol/Ipratropium (Ipratropium/Albuterol Sulfate 3 Ml Ampul.Neb) 3 ml INHALATION Q6H.RT [facility] Last Admin: 11/30/20 07:21 Dose: 3 ml Documented by: Aspirin (Aspirin 81 Mg Tab.Chew) 81 mg PO DAILY@0800 [facility] Last Admin: 11/29/20 08:29 Dose: 81 mg Documented by: Atorvastatin Calcium (Atorvastatin Calcium 40 Mg Tablet) 40 mg PO QHS [facility] Last Admin: 11/29/20 21:37 Dose: 40 mg Documented by: Calcium Carbonate (Calcium Carbonate 500 Mg Tablet) 500 mg PO Q4H PRN PRN PRN Reason: INDIGESTION Last Admin: 11/26/20 22:15 Dose: 500 mg Documented by: Carvedilol (Carvedilol 12.5 Mg Tablet) 12.5 mg PO BID [facility] Last Admin: 11/29/20 21:36 Dose: 12.5 mg Documented by: Clopidogrel Bisulfate (Clopidogrel Bisulfate 75 Mg Tablet) 75 mg PO DAILY [facility] Last Admin: 11/29/20 10:40 Dose: 75 mg Documented by: Enoxaparin Sodium (Enoxaparin 30 Mg/0.3 Ml Syringe) 30 mg SC DAILY [facility] Last Admin: 11/29/20 08:29 Dose: 30 mg Documented by: Hydralazine HCl (Hydralazine 20 Mg/Ml Vial) 10 mg IV Q6H PRN PRN PRN Reason: for SBP>160 Last Admin: 11/30/20 03:59 Dose: 10 mg Documented by: Insulin Glargine (Insulin Glargine 100 Units/Ml Pen) 30 units SC 1100 [facility] Last Admin: 11/29/20 11:46 Dose: 30 u Documented by: Insulin Glargine (Insulin Glargine 100 Units/Ml Pen) 10 units SC QHS [facility] Last Admin: 11/29/20 21:38 Dose: 10 units Documented by: Insulin Human Lispro (Insulin Lispro 100 Unit/Ml Insuln.Pen) 0 unit SC ACHS [facility]; Protocol Last Admin: 11/29/20 21:39 Dose: 3 unit Documented by: Insulin Human Lispro (Insulin Lispro 100 Unit/Ml Insuln.Pen) 8 unit SC TIDAC [facility] Last Admin: 11/29/20 16:06 Dose: 8 u Documented by: Lamotrigine (Lamotrigine 100 Mg Tablet) 200 mg PO BID [facility] Last Admin: 11/29/20 21:36 Dose: 200 mg Documented by: Lisinopril (Lisinopril 10 Mg Tablet) 10 mg PO BID [facility] Last Admin: 11/29/20 21:36 Dose: 10 mg Documented by: Nitroglycerin (Nitroglycerin Oint 1 Inch Packet) 1 inch TD Q6 [facility] Last Admin: 11/30/20 05:04 Dose: 1 inch Documented by: Ondansetron HCl (Ondansetron 4 Mg/2 Ml Vial) 4 mg IV Q8H PRN PRN PRN Reason: NAUSEA/VOMITING Last Admin: 11/28/20 16:47 Dose: 4 mg Documented by: Pantoprazole Sodium (Pantoprazole Sodium 20 Mg Tablet) 20 mg PO DAILY [facility] Last Admin: 11/29/20 08:32 Dose: 20 mg Documented by: Senna/Docusate Sodium (Senna/Docusate Sodium 1 Tablet) 2 tablet PO BID PRN PRN PRN Reason: Constipation Last Admin: 11/27/20 09:05 Dose: 2 tablet Documented by: Senna/Docusate Sodium (Senna/Docusate Sodium 1 Tablet) 2 tablet PO DAILY [facility] Last Admin: 11/29/20 08:28 Dose: 2 tablet Documented by: Sodium Chloride (0.9% Saline Lock 10 Ml Syringe) 10 - 40 ml IV UD PRN PRN Reason: SALINE FLUSH Last Admin: 11/30/20 04:00 Dose: 10 ml Documented by: Throat Lozenges (Benzocaine/Menthol 1 Lozenge) 1 lozenge MUCOUS MEM Q2H PRN PRN PRN Reason: SORE THROAT Last Admin: 11/26/20 13:13 Dose: 1 lozenge Documented by: Topiramate (Topiramate 50 Mg Tablet) 50 mg PO BID [facility] Last Admin: 11/29/20 21:37 Dose: 50 mg Documented by: Home Medications: Medications to take at Discharge Omeprazole [Prilosec] 20 mg PO DAILY 12/19/13 Topiramate [Topamax] 50 mg PO BID 12/19/13 Albuterol Aerosols [Ventolin Aerosols] 2.5 mg INHALATION Q4H PRN PRN 05/09/14 Lamotrigine [Lamictal] 300 mg PO BID 07/22/20 Acyclovir [Zovirax] 1 tablet PO 5X/DAY 11/26/20 Hydrocodone/Acetaminophen [Hydrocodone-Acetamin 5-325 mg] 1 each PO Q6H PRN PRN 11/26/20 Multivitamin with Minerals [Multiple Vitamin] 1 each PO DAILY 11/26/20 Aspirin [Aspirin, Baby] 81 mg PO DAILY@0800 #30 tab.chew 11/30/20 Carvedilol [Coreg (Beta Sedrick)] 12.5 mg PO BID #60 tablet 11/30/20 Clopidogrel Bisulfate [Plavix] 75 mg PO DAILY #30 tablet 11/30/20 Insulin NPH Human [Humulin N Pen] 10 units SC DAILY #0 11/30/20 Insulin NPH Human [Humulin N Pen] 20 units SC QHS #0 11/30/20 Lisinopril 10 mg PO BID #0 11/30/20 Metformin HCl 500 mg PO BID #60 tablet 11/30/20 Phenobarbital 32.4 mg PO TID #0 11/30/20 Atorvastatin Calcium [Lipitor] 80 mg PO QHS #30 tablet 12/02/20 Nystatin Powder [Mycostatin Powder] 1 applic TOPICAL BID bottle 12/02/20 Following Prescriptions Were Given to Patient: Aspirin [Aspirin, Baby] 81 mg PO DAILY@0800 #30 tab.chew Transmission Status: Received by [facility] Carvedilol [Coreg (Beta Sedrick)] 12.5 mg PO BID #60 tablet Transmission Status: Received by [facility] Atorvastatin Calcium [Lipitor] 80 mg PO QHS #30 tablet [facility]: [facility] Metformin HCl 500 mg PO BID #60 tablet Transmission Status: [facility] Clopidogrel Bisulfate [Plavix] 75 mg PO DAILY #30 tablet Transmission Status: Received by [facility] Other Amb Orders: 30 Day Event Recorder [employer] [[facility]] Location: None Selected 30 Day Event [employer] [[facility]] Location: None Selected Primary Care Physician: Yovanny Ruano MD [Primary Care Provider] - Medical Necessity - Tobacco Use Smoking Status: Never smoker Tobacco Use: Non-smoker Meaningful Use Info Meaningful Use Diagnoses (Choose all that apply): Ischemic CVA - CVA Therapy Assessed for PT,OT and/or ST?: Yes - Ischemic Stroke Antithrombotic order at d/c?: Yes Dx of Atrial fib/flutter?: Yes Anticoagulant at discharge?: Yes Statins at discharge?: Yes Primary Dx Acute Ischemic CVA?: Yes IV tPA ordered during stay?: No Reason IV t-PA not ordered: Procedure not Indicated - Time of onset unclear Inpatient E&M: 94012 Disch Hosp
[2020-12-02 11:55] LABS: Bedside Glucose 168 mg/dL (70-110)
--- NOTE | 2020-12-02 14:40 | CASEMGMT ---
BRANDI called IN [facility] again and left her a voice mail. Await return call. Marcia Encinas CAR RENTAL SALES ASSISTANT AHSAN
--- NOTE | 2020-12-02 16:04 | CASEMGMT ---
Received call from [facility] at [facility] and patient was approved. BRANDI notified physician. BRANDI also notified RN, patient, her grandson, and hot car charger. BRANDI requested on [facility] website that patient get picked up at 1730 via cot. Still waiting for official approval from [facility]. Orders were faxed to [facility] along with negative COVID test. Convalescent was completed on HENS. BARNDI did talk with Lauren from [facility] and let her know the requested time for filler picker, but that we are still waiting on the ambulance company's approval of the time. Plan: d/c to [facility] under skilled level of care on a convalescent stay. [facility] transported. Marcia FOREMAN
[2020-12-02 17:05] LABS: Bedside Glucose 174 mg/dL (70-110)
--- NOTE | 2020-12-02 17:30 | NURSING ---
report called to bobby at [facility]
== END 2020-12-02 19:13 | disposition skilled nursing facility (03) | DRG 280 ==
LOC: ED 18:52 → PCU 19:12
PROVIDERS: Family Medicine; Admitting Provider Hospitalist; Emergency Provider Emergency Medicine; PCP Family Medicine; Visit Provider Internal Medicine
DX: I21.4 Non-ST elevation (NSTEMI) myocardial infarction (principal); I63.531 Cerebral infarction due to unspecified occlusion or stenosis of right posterior cerebral artery; Z68.41 Body mass index [BMI] 40.0-44.9, adult; E86.0 Dehydration; R29.6 Repeated falls; I10 Essential (primary) hypertension; E78.5 Hyperlipidemia, unspecified; E66.9 Obesity, unspecified; J45.909 Unspecified asthma, uncomplicated; E11.65 Type 2 diabetes mellitus with hyperglycemia; W19.XXXA Unspecified fall, initial encounter; D72.829 Elevated white blood cell count, unspecified; Y92.009 Unspecified place in unspecified non-institutional (private) residence as the place of occurrence of the external cause; Z79.4 Long term (current) use of insulin; Z79.51 Long term (current) use of inhaled steroids; Z79.82 Long term (current) use of aspirin; Z90.710 Acquired absence of both cervix and uterus; R56.9 Unspecified convulsions; F41.1 Generalized anxiety disorder
CPT/HCPCS: 36415; 70450; 70496; 70498; 70551; 71111; 74018; 80048; 80053; 80061; 81001; 82542; 82550; 82962; 83036; 83735; 84484; 85025; 85610; 85652; 87426; 92507; 92523; 92526; 93005; 93306; 94640; 95819; 97110; 97162; 97166; 97530; 97535; 99251; 99285; J7030; Q9957; Q9967; A4216; C8929; G0463; J2405

== ENCOUNTER 2021-01-21 20:57 | Observation (INO) | payer OTHER, SELFPAY ==
[2020-11-30 11:30] VITALS: BMI 41.6
[2021-01-21] VITALS (7 sets, daily range): BP systolic 118–146; BP diastolic 64–90; PULSE 74–84; RESP 16–18; TEMP 36.6; O2SAT 98–100; BMI 41.3
--- NOTE | 2021-01-21 21:02 | EKG12_ITS ---
Test Reason : STROKE SYMPTOMS Blood Pressure : / mmHG Vent. Rate : 071 BPM Atrial Rate : 071 BPM P-R Int : 202 ms QRS Dur : 118 ms QT Int : 460 ms P-R-T Axes : 009 -64 062 degrees QTc Int : 499 ms Normal sinus rhythm Left axis deviation Incomplete left bundle branch block Prolonged QT Abnormal ECG Confirmed by RAGINI ALEJANDRO, DEANDRE ([id number]), editor & co founder CELINA RODRIGUES ([id number]) on 01/26/2021 9:25:27 AM Referred By: MISHA Confirmed By:DEANDRE EID MD
--- NOTE | 2021-01-21 21:02 | CT_ITS ---
We are attempting to reach an attending provider to discuss findings. An addendum with communication details will be sent when the communication is complete. STUDY: CT HEAD STROKE PROTOCOL W/O CONTRAST INJECTION REASON FOR EXAM: Female, 70 years old. Neuro deficit, acute, stroke suspected RADIATION DOSAGE (If Supplied By Facility): CTDIvol = ( ) mGy, DLP = ( 779.24 ) mGycm TECHNIQUE: Transaxial CT imaging of the brain was performed without administration of intravenous contrast material. Individualized dose optimization techniques were used for this CT. COMPARISON: 11/25/2020. FINDINGS: Normal soft tissue structures. Normal calvarium. Calcification of cavernous carotids. Mild atrophy and periventricular white matter ischemic changes.. Tiny hypoattenuated density in the head of right caudate nucleus likely representing old lacunar infarct. Normal basal ganglia and thalami. Normal brainstem. Probable chronic ischemic changes in the right cerebellar hemisphere There is no intracranial hemorrhage. There is low attenuation within the right posterior medial temporal lobe and occipital lobe consistent with subacute infarct in the distribution of the right posterior cerebral artery.. Postsurgical changes of the orbits. Mucosal thickening of the maxillary and ethmoid sinuses bilaterally greater on the right. CT/STROKE Brain/Head without Cont IMPRESSION: Mild atrophy and periventricular white matter ischemic changes Findings which may be consistent with subacute infarct in the right posterior medial temporal lobe and occipital lobe. No evidence for acute bleed Electronically Signed: Everton Abraham MD at 21:34 EDT , Service support ,
--- NOTE | 2021-01-21 21:05 | ED.RN ---
PT DEMANDS TO BE PLACED ON BEDPAN. EDUCATED PT, PT STATES SHE CAN'T WAIT. PT PLACED ON BEDPAN.
[2021-01-21 21:12] LABS: Absolute Lymphocyte Count 2.96 X10^3/uL (0.83-4.51); Absolute Neutrophil Count 9.7 X10^3/uL (2.0-7.7); Basophil% 0.7 % (0-1); Eosinophil# 0.36 X10^3/uL; Eosinophils% 2.6 % (0-5); Hematocrit 35.8 % (37-47); Hemoglobin 12.2 g/dL (12.0-15.0); Lymphocyte # 2.96 X10^3/ul (0.83-4.51); Lymphocyte % 21.1 % (19-41); Mean Corp Hgb Conc 34.1 g/dL (32-36); Mean Corpuscular Hgb 30.6 pg (27.0-32.0); Mean Corpuscular Volume 89.7 fL (81-99); Mean Platelet Vol. 10.6 fl (6.2-12.0); Monocyte# 0.87 X10^3/uL; Monocyte% 6.2 % (0-10); NRBC Flagged by Analyzer 0 % (0-5); Neutrophil # 9.66 X10^3/uL (2.7-7.7); Neutrophil % 68.8 % (47-70); Platelet Count 385 K/mm3 (150-450); RBC Distribution Width CV 13.4 % (11.6-14.6); RBC Distribution Width SD 44.4 fl (35.1-43.9); Red Blood Count 3.99 M/mm3 (4.2-5.4)
[2021-01-21 21:21] LABS: International Normalized Ratio 1.1; Prothrombin Time (Protime)PT. 13.1 SECONDS (11.7-14.9)
[2021-01-21 21:30] LABS: Anion Gap 8 (5-15); BUN 13 mg/dL (7-18); BUN/Creat Ratio 18.4 RATIO (10-20); Calcium,Total 9.2 mg/dL (8.5-10.1); Chloride 102 mmol/L (98-107); Creatinine, Serum 0.71 mg/dL (0.55-1.02); EST Glomerular Filtration Rate 87 mL/min (>60); Est Glom Filt Rate - Afr Amer 105 mL/min (>60); Glucose 118 mg/dL (74-106); Potassium 3.7 mmol/L (3.5-5.1); Sodium Level 135 mmol/L (136-145)
--- NOTE | 2021-01-21 21:31 | CT_ITS ---
STUDY: CTA HEAD AND NECK WITH CONTRAST REASON FOR EXAM: Female, 70 years old. confusion RADIATION DOSAGE (If Supplied By Facility): CTDIvol = ( 20.51 ) mGy, DLP = ( 767.67 ) mGycm TECHNIQUE: CT angiography was performed with a multi-detector CT scanner. Data acquisition was obtained from the skull base through the vertex following intravenous administration of IV 100mL Isovue-370. MIP images were reconstructed from the axial data set. Post-processing of the angiographic images was performed, with multiplanar reformation and 3D reconstruction. Individualized dose optimization techniques were used for this CT. COMPARISON: No relevant priors. FINDINGS: Normal bilateral petrous carotid arteries. Calcific plaquing of the right cavernous carotid artery with a normal supraclinoid bifurcation. Calcific plaquing of the left cavernous carotid artery with a normal supraclinoid bifurcation. Normal right A1 segments of the anterior cerebral artery. Normal left A1 segments of the anterior cerebral artery. Anterior communicating artery is normal Normal bilateral A2 segments of the anterior cerebral arteries. Normal right M1 and M2 segments of the middle cerebral arteries, with a normal M1 bifurcation. Normal left M1 and M2 segments of the middle cerebral arteries, with a normal M1 bifurcation. Hypoplastic right posterior communicating artery (PCOM) consistent with normal variant. Normal left posterior communicating artery (PCOM). Normal bilateral vertebral arteries. Normal basilar artery with a normal basilar bifurcation. The visualized bilateral superior cerebellar (SCA) arteries are normal. Normal bilateral P1, P2 and visualized P3 segments of the posterior cerebral arteries. There is no demonstrated aneurysm of the [place]. AORTIC ARCH: Normal visualized aortic arch. Normal origins of the brachiocephalic, left common carotid, and left subclavian arteries. RIGHT CAROTID ARTERIES: Normal right common carotid artery (CCA). Normal right common carotid bulb. Normal origin of the right internal carotid (ICA) artery without a hemodynamically significant stenosis. Normal visualized cervical portion of the right internal carotid artery. Normal origin of the right external carotid artery (ECA). LEFT CAROTID ARTERIES: Normal left common carotid artery (CCA). Minor calcific plaquing of the left common carotid bulb. Normal origin of the left internal carotid (ICA) artery without a hemodynamically significant stenosis. Normal visualized cervical portion of the left internal carotid artery. Normal origin of the left external carotid artery (ECA). VERTEBRAL ARTERIES: Normal bilateral vertebral arteries. CT/CTA Head AND Neck W/ Contrast IMPRESSION: Mild atherosclerotic changes of the head and neck without evidence for hemodynamically significant stenosis Electronically Signed: Everton Abraham MD at 22:48 EDT , Service support ,
--- NOTE | 2021-01-21 21:40 | RAD_ITS ---
STUDY: X-RAY CHEST REASON FOR EXAM: Female, 70 years old. Neuro deficit, acute, stroke suspected TECHNIQUE: AP portable COMPARISON: None. FINDINGS: The lungs are clear and expanded. There is no demonstrated pleural abnormality. There is mild prominence of the cardiac silhouette. Normal mediastinum and jane. Normal visualized pulmonary arteries. Normal visualized aortic arch and descending thoracic aorta. Normal thoracic spine. There are degenerative changes of left shoulder and a prosthesis on the right. Normal visualized ribs, and clavicles.. There is no demonstrated abnormality of the visualized soft tissue structures of the upper abdomen. RAD/Chest 1 View IMPRESSION: No acute cardiopulmonary pathology Electronically Signed: Everton Abraham MD at 22:43 EDT , Service support ,
--- NOTE | 2021-01-21 22:21 | EX.ED.DYSGE1 ---
HPI History of Present Illness Chief Complaint: Neuro S/Sx Informant: patient, family and EMS Onset/Context/Timing Onset: Today Narrative Narrative: Patient presents with concerns of stroke. Much of the history is obtained from the daughter at bedside. She states that in November patient was found confused and having fallen on the floor. Patient was seen here and had a negative CT and was admitted for further treatment. On MRI they did find an acute right posterior cerebral artery territory infarct. She was started on a statin and Plavix along with aspirin. Daughter states that she has had intermittent episodes of confusion since that time and her primary care physician through the MI advised that she may be having TIAs. Tonight patient presents via EMS with a steady decline since yesterday. Daughter states that she is confused again. EMS with a saw a facial droop. Patient just complains of diffuse weakness and constipation. [facility] Medical History Diabetes mellitus Diabetes mellitus Seizures Stroke/cerebrovascular accident TIA (transient ischemic attack) Home Medications omeprazole 20 mg PO BID 12/19/13 [History Last Taken 07/22/20] topiramate 50 mg PO BID 12/19/13 [History Last Taken 07/22/20] albuterol sulfate 2.5 mg INHALATION Q4H PRN PRN 05/09/14 [History Last Taken Unknown] lamotrigine 300 mg PO BID 07/22/20 [History Last Taken Unknown] multivitamin with minerals 1 each PO DAILY 11/26/20 [History Last Taken Unknown] aspirin 81 mg PO DAILY@0800 #30 tab.chew 11/30/20 [Rx Last Taken Unknown] carvedilol 12.5 mg PO BID #60 tablet 11/30/20 [Rx Last Taken Unknown] clopidogrel 75 mg PO DAILY #30 tablet 11/30/20 [Rx Last Taken Unknown] lisinopril 10 mg PO BID #0 11/30/20 [Rx Last Taken Unknown] phenobarbital 32.4 mg PO TID #0 11/30/20 [Rx Last Taken 07/22/20] atorvastatin 80 mg PO QHS #30 tablet 12/02/20 [Rx Last Taken Unknown] nystatin 1 applic TOPICAL BID bottle 12/02/20 [Rx Last Taken Unknown] budesonide-formoterol 2 puff INHALATION BID 01/21/21 [History Last Taken Unknown] cetirizine 10 mg PO DAILY 01/21/21 [History Last Taken Unknown] cholecalciferol (vitamin D3) 50 mcg PO DAILY 01/21/21 [History Last Taken Unknown] diclofenac sodium [Diclo Gel] ea TOPICAL 01/21/21 [History Last Taken Unknown] fluticasone propionate 1 spray INTRANASAL DAILY 01/21/21 [History Last Taken Unknown] insulin NPH isoph U-100 human [Novolin N Flexpen] 40 unit SUBCUT QHS 01/21/21 [History Last Taken Unknown] insulin NPH isoph U-100 human [Novolin N Flexpen] 60 unit SUBCUT BREAKFAST 01/21/21 [History Last Taken Unknown] insulin regular human [Novolin R Flexpen] 20 unit SUBCUT BID 01/21/21 [History Last Taken Unknown] Allergy/AdvReac Type Severity Reaction Status Date / Time ciprofloxacin Allergy Unknown Verified 11/25/20 16:42 hydrochlorothiazide Allergy Unknown Verified 11/25/20 16:42 pentazocine [From Talwin] Allergy Unknown Verified 11/25/20 16:42 acetaminophen [From Percocet] AdvReac PT UNSURE Verified 01/21/21 21:03 OF REACTION carvedilol AdvReac Rash Verified 01/21/21 21:03 oxycodone [From Percocet] AdvReac PT UNSURE Verified 01/21/21 21:03 OF REACTION Social History Smoking Status: Never smoker ROS ROS ED Constitutional Constitutional ED: Denies chills or fever(s) Eyes Eyes: Denies change in vision ENT ENT ED: Denies sore throat Cardiovascular Cardiovascular: Denies chest pain Respiratory/Chest Respiratory/Chest: Denies cough or dyspnea Gastrointestinal Gastrointestinal: Reports abdominal pain and constipation; Denies diarrhea, nausea or vomiting Genitourinary Genitourinary ED: Denies dysuria Musculoskeletal Musculoskeletal: Denies back pain Integumentary Denies rash Neurologic Neurologic: Denies headache(s) or weakness Psychiatric Psychiatric: Denies anxiety or depression Endocrine Endocrinology: Denies polydipsia or polyuria Allergic/Immunologic Allergic/Immunologic ED: Denies urticaria EXAM Physical Exam Const Vital Signs: 01/21/21 20:59 01/21/21 21:04 01/21/21 21:06 Temperature 98 F Temperature Source Temporal Pulse Rate 77 74 Respiratory Rate 16 18 Blood Pressure 138/69 H 138/69 H Blood Pressure Mean 92 92 Pulse Ox 98 98 Oxygen Delivery Method Room Air Room Air Room Air 01/21/21 21:40 01/21/21 22:04 01/21/21 22:38 Temperature Temperature Source Pulse Rate 75 76 Respiratory Rate 18 17 Blood Pressure 146/64 H 118/69 146/90 H Blood Pressure Mean 91 85 108 Pulse Ox 98 98 Oxygen Delivery Method Room Air Room Air Positive well nourished and well developed General Appearance ED: well developed HEENT Reports normocephalic and head/scalp atraumatic Eyes PERRL and EOMs intact bilaterally Neck supple Chest Wall inspection of chest normal and palpation of chest normal Resp normal respiratory effort and clear to auscultation bilaterally Cardio regular rate and regular rhythm GI normal to inspection, nondistended, normoactive bowel sounds Palpation: soft Extremity normal to inspection Neuro oriented x3 and no sensory deficits noted Neuro Narrative: NIH equals 0 the time of my examination. Sensorium / Orientation: alert Motor Exam: strength 5/5 throughout Psych mental status grossly normal Skin no rashes or lesions noted MDM MDM MDM Narrative Medical decision making narrative: Patient was made a prehospital stroke alert. Upon arrival NIH score was 0. Head CT, labs, urinalysis are obtained. Lab Data Attestation: I reviewed the patient's lab results. Labs: Laboratory Results - last 24 hr 01/21/21 01/21/21 01/21/21 21:05 21:05 21:05 WBC 14.0 H RBC 3.99 L Hgb 12.2 Hct 35.8 L MCV 89.7 MCH 30.6 MCHC 34.1 RDW Std Deviation 44.4 H RDW Coeff of Linda 13.4 Plt Count 385 MPV 10.6 Immature Gran % (Auto) 0.600 Neut % (Auto) 68.8 Lymph % (Auto) 21.1 [place] % (Auto) 6.2 Eos % (Auto) 2.6 Baso % (Auto) 0.7 Absolute Neuts (auto) 9.7 H Absolute Lymphs (auto) 2.96 Nucleated RBC % 0 PT 13.1 INR 1.1 APTT 29.0 Sodium 135 L Potassium 3.7 Chloride 102 Carbon Dioxide 25.0 Anion Gap 8 BUN 13 Creatinine 0.71 Estim Creat Clear Calc 47.10 Est GFR (MDRD) Af Amer 105 Est GFR (MDRD) Non-Af 87 BUN/Creatinine Ratio 18.4 Glucose 118 H Calcium 9.2 Troponin I < 0.015 Urine Color Urine Clarity Urine pH Ur Specific [place] Urine Protein Urine Glucose (UA) Urine Ketones Urine Occult Blood Urine Nitrite Urine Bilirubin Urine Urobilinogen Ur Leukocyte Esterase Urine RBC Urine WBC Ur Squamous Epith Cells Urine Bacteria Urine Mucus Phenobarbital 01/21/21 01/21/21 22:08 22:35 WBC RBC Hgb Hct MCV MCH MCHC RDW Std Deviation RDW Coeff of Linda Plt Count MPV Immature Gran % (Auto) Neut % (Auto) Lymph % (Auto) [place] % (Auto) Eos % (Auto) Baso % (Auto) Absolute Neuts (auto) Absolute Lymphs (auto) Nucleated RBC % PT INR APTT Sodium Potassium Chloride Carbon Dioxide Anion Gap BUN Creatinine Estim Creat Clear Calc Est GFR (MDRD) Af Amer Est GFR (MDRD) Non-Af BUN/Creatinine Ratio Glucose Calcium Troponin I Urine Color Yellow Urine Clarity Clear Urine pH 6.5 Ur Specific [place] 1.005 Urine Protein 100 H Urine Glucose (UA) Normal Urine Ketones Negative Urine Occult Blood Negative Urine Nitrite Negative Urine Bilirubin Negative Urine Urobilinogen Normal Ur Leukocyte Esterase Negative Urine RBC 0-5 SEEN Urine WBC 0 SEEN Ur Squamous Epith Cells 0 SEEN Urine Bacteria 0 SEEN Urine Mucus 0 SEEN Phenobarbital 12.4 Radiography Chest X-Ray - ED: 1 View, Read by ED Physician and Chronic Changes Diagnostic Testing: Radiology Impression Brain CT 01/21/21 21:02 IMPRESSION: Mild atrophy and periventricular white matter ischemic changes Findings which may be consistent with subacute infarct in the right posterior medial temporal lobe and occipital lobe. No evidence for acute bleed Electronically Signed: Everton Abraham MD at 21:34 EDT , Service support , ADDENDUM: 01/21/21 3965 IMPRESSION: Mild atrophy and periventricular white matter ischemic changes Findings which may be consistent with subacute infarct in the right posterior medial temporal lobe and occipital lobe. No evidence for acute bleed N.B. : The above information has been verbally conveyed by Everton Abraham MD to Karen Roldan MD, on 01/21/2021 21:36:29 (ET). Electronically Signed: Everton Abraham MD at 21:34 EDT , Service support , Head/Neck CTA 01/21/21 21:31 IMPRESSION: Mild atherosclerotic changes of the head and neck without evidence for hemodynamically significant stenosis Electronically Signed: Everton Abraham MD at 22:48 EDT , Service support , Chest X-Ray 01/21/21 21:40 IMPRESSION: No acute cardiopulmonary pathology Electronically Signed: Everton Abraham MD at 22:43 EDT , Service support , EKG Initial EKG: Attestation: I personally reviewed and interpreted this EKG as follows: Interpretation: Sinus Rhythm (Sinus at 71 with no acute ischemia.) Treatment and Re-Evaluation Comments:: Radiologist [facility] did review the CT scan and examined the patient. No acute findings noted at this time and no need for TPA. He did recommend a metabolic work-up as the patient's primary complaint when she has his episodes is confusion. Blood work is reviewed. White count is mildly elevated at 14 but no definitive source of infection. Urinalysis is negative. Chest x-ray reveals chronic changes only. CTA head and neck do not reveal significant occlusion. Neurologist did recommend admission for MRI if CTA and metabolic work-up were unremarkable. On repeat evaluation patient is resting comfortably. Test results discussed with patient as well as daughter at bedside. Patient be discussed with hospitalist for observation stay and further work-up. Discharge Plan Triage Chief Complaint: Neuro S/Sx ED Provider: Karen Ascencio Dx/Rx/DC Orders Clinical Impression: Confusion, Generalized weakness Prescriptions: No Action omeprazole 20 MG capsule 20 mg PO BID RF: 0 topiramate 50 MG tablet 50 mg PO BID RF: 0 albuterol sulfate 2.5 MG/3 ML solution for nebulization 2.5 mg inhalation Q4H PRN PRN (Reason: Wheezing) RF: 0 lamotrigine 150 MG tablet 300 mg PO BID RF: 0 multivitamin with minerals 1 EACH tablet 1 each PO DAILY RF: 0 carvedilol 12.5 MG tablet 12.5 mg PO BID Qty: 60 RF: 0 clopidogrel 75 MG tablet 75 mg PO DAILY Qty: 30 RF: 0 aspirin 81 MG tablet,chewable 81 mg PO DAILY@0800 Qty: 30 RF: 2 lisinopril 10 MG tablet 10 mg PO BID Qty: 0 RF: 0 phenobarbital 30 MG tablet 32.4 mg PO TID Qty: 0 RF: 0 atorvastatin 80 MG tablet 80 mg PO QHS Qty: 30 RF: 2 nystatin 1 APPLIC bottle 1 applic TOPICAL BID RF: 0 cetirizine 10 mg Tablet 10 mg PO DAILY RF: 0 Novolin R Flexpen 100 unit/mL (3 mL) Insulin Pen 20 unit SUBCUT BID RF: 0 Novolin N Flexpen 100 unit/mL (3 mL) Insulin Pen 60 unit SUBCUT BREAKFAST RF: 0 Novolin N Flexpen 100 unit/mL (3 mL) Insulin Pen 40 unit SUBCUT QHS RF: 0 budesonide-formoterol 80-4.5 mcg/actuation Hfa Aerosol Inhaler 2 puff INHALATION BID RF: 0 fluticasone propionate 50 mcg/actuation [place],Suspension 1 spray INTRANASAL DAILY RF: 0 cholecalciferol (vitamin D3) 50 mcg (2,000 unit) Tablet 50 mcg PO DAILY RF: 0 Diclo Gel 1 % Kit TOPICAL RF: 0 [facility] [Primary [facility] Provider] - Disposition Disposition: Acute Care Hospital [facility]
[2021-01-21 22:48] LABS: Bacteria 0 SEEN /hpf (None Seen); Mucous, Urine 0 SEEN /hpf (<or=2+); Squamous Epithelial Cells - UA 0 SEEN /hpf (5-10); White Blood Cells 0 SEEN /hpf (0-5)
[2021-01-21 22:49] LABS: Color, Urine Yellow (Yellow); Glucose, Dipstick Normal (Normal); Ketone-Dipstick Negative (Negative); Leukocyte Esterase-Dipstick Negative /ul (Negative); Nitrite-Dipstick Negative (Negative); Occult Blood-Urine Negative /ul (Negative); Protein-Dipstick 100 mg/dl (Negative); Specific Gravity, Urine 1.005 (1.002-1.030); Urine Bilirubin Dipstick Negative (Negative); Urine Clarity Clear (Clear); Urine Urobilinogen Normal (Normal); Urine pH 6.5 (5.0 - 8.0)
[2021-01-21 22:56] LABS: Red Blood Cells-Urine 0-5 SEEN /hpf (0-5)
--- NOTE | 2021-01-21 23:31 | HP.PCM.HOS_ITS ---
HPI - General General Date of Admission: 01/21/21 HPI Narrative RICKEY JAQUEZ, is a 70 F with a significant history of seizure disorder; diabetes mellitus and a CVA who presents to the emergency department with persistent confusion. Also reportedly per paramedics patient had a facial dr oop. Associated with her symptom is lightheadedness and headaches. At the emergency department no facial droop was noted. In November 2020 because of confusion and a fall patient was brought to our [facility] department. Patient was hospitalized and she was found to have acute stroke on MRI. Patient subsequently went to a [facility]. Her daughter reports that after patient was discharged from the [facility] patient has increasingly been confused. [facility] Medical History (Updated 01/21/21 @ 23:[address] Ranjeet Richardson MD) Diabetes mellitus Diabetes mellitus Seizures Stroke/cerebrovascular accident TIA (transient ischemic attack) Home Medications omeprazole 20 mg PO BID 12/19/13 [History Last Taken 07/22/20] topiramate 50 mg PO BID 12/19/13 [History Last Taken 07/22/20] albuterol sulfate 2.5 mg INHALATION Q4H PRN PRN 05/09/14 [History Last Taken Unknown] lamotrigine 300 mg PO BID 07/22/20 [History Last Taken Unknown] multivitamin with minerals 1 each PO DAILY 11/26/20 [History Last Taken Unknown] aspirin 81 mg PO DAILY@0800 #30 tab.chew 11/30/20 [Rx Last Taken Unknown] carvedilol 12.5 mg PO BID #60 tablet 11/30/20 [Rx Last Taken Unknown] clopidogrel 75 mg PO DAILY #30 tablet 11/30/20 [Rx Last Taken Unknown] lisinopril 10 mg PO BID #0 11/30/20 [Rx Last Taken Unknown] phenobarbital 32.4 mg PO TID #0 11/30/20 [Rx Last Taken 07/22/20] atorvastatin 80 mg PO QHS #30 tablet 12/02/20 [Rx Last Taken Unknown] nystatin 1 applic TOPICAL BID bottle 12/02/20 [Rx Last Taken Unknown] budesonide-formoterol 2 puff INHALATION BID 01/21/21 [History Last Taken Unknown] cetirizine 10 mg PO DAILY 01/21/21 [History Last Taken Unknown] cholecalciferol (vitamin D3) 50 mcg PO DAILY 01/21/21 [History Last Taken Unknown] diclofenac sodium [Diclo Gel] ea TOPICAL 01/21/21 [History Last Taken Unknown] fluticasone propionate 1 spray INTRANASAL DAILY 01/21/21 [History Last Taken Unknown] insulin NPH isoph U-100 human [Novolin N Flexpen] 40 unit SUBCUT QHS 01/21/21 [History Last Taken Unknown] insulin NPH isoph U-100 human [Novolin N Flexpen] 60 unit SUBCUT BREAKFAST 01/21/21 [History Last Taken Unknown] insulin regular human [Novolin R Flexpen] 20 unit SUBCUT BID 01/21/21 [History Last Taken Unknown] Allergy/AdvReac Type Severity Reaction Status Date / Time ciprofloxacin Allergy Unknown Verified 01/22/21 00:23 hydrochlorothiazide Allergy Unknown Verified 01/22/21 00:23 pentazocine [From Talwin] Allergy Unknown Verified 01/22/21 00:23 acetaminophen [From Percocet] AdvReac PT UNSURE Verified 01/22/21 00:23 OF REACTION carvedilol AdvReac Rash Verified 01/22/21 00:23 oxycodone [From Percocet] AdvReac PT UNSURE Verified 01/22/21 00:23 OF REACTION Family History (Updated 01/21/21 @ 23:[address] Ranjeet Richardson MD) Other Cancer Surgical History (Updated 01/21/21 @ 23:[address] Ranjeet Richardson MD) H/O shoulder surgery Social History Smoking Status: Never smoker ROS ROS Narrative 12 point review of system is negative except as stated in HPI. Vital Signs Vital Signs Vital Signs: 01/21/21 20:59 01/21/21 21:04 01/21/21 21:06 Temperature 98 F Temperature Source Temporal Pulse Rate 77 74 Respiratory Rate 16 18 Blood Pressure 138/69 H 138/69 H Blood Pressure Mean 92 92 Pulse Ox 98 98 Oxygen Delivery Method Room Air Room Air Room Air 01/21/21 21:40 01/21/21 22:04 01/21/21 22:38 Temperature Temperature Source Pulse Rate 75 76 Respiratory Rate 18 17 Blood Pressure 146/64 H 118/69 146/90 H Blood Pressure Mean 91 85 108 Pulse Ox 98 98 Oxygen Delivery Method Room Air Room Air Weight Weight: 112.5 kg Body Mass Index (BMI) 41.3 Physical Exam Narrative Alert and oriented x3 Nontraumatic; normocephalic Lung clear to auscultate Heart sounds S1-S2. No murmur, gallop or rubs. Abdomen bowel sounds present soft, nontender nondistended Extremity without edema cyanosis or clubbing. Neurology: No facial droop noted. No dysmetria of [id number] test. Unable to follow directions to do araujo to heel test. Occasionally could not count fingers. Strength 5 out of 5 throughout except right upper extremity where strength is 3 out of 5. (Attributes right upper extremity decrease in strength to shoulder surgery.) Results Lab / Micro Data Result Diagrams: 01/21/21 21:05 01/21/21 21:05 Labs: Laboratory Results - last 24 hr 01/21/21 01/21/21 01/21/21 21:05 21:05 21:05 WBC 14.0 H RBC 3.99 L Hgb 12.2 Hct 35.8 L MCV 89.7 MCH 30.6 MCHC 34.1 RDW Std Deviation 44.4 H RDW Coeff of Linda 13.4 Plt Count 385 MPV 10.6 Immature Gran % (Auto) 0.600 Neut % (Auto) 68.8 Lymph % (Auto) 21.1 [place] % (Auto) 6.2 Eos % (Auto) 2.6 Baso % (Auto) 0.7 Absolute Neuts (auto) 9.7 H Absolute Lymphs (auto) 2.96 Nucleated RBC % 0 PT 13.1 INR 1.1 APTT 29.0 Sodium 135 L Potassium 3.7 Chloride 102 Carbon Dioxide 25.0 Anion Gap 8 BUN 13 Creatinine 0.71 Estim Creat Clear Calc 47.10 Est GFR (MDRD) Af Amer 105 Est GFR (MDRD) Non-Af 87 BUN/Creatinine Ratio 18.4 Glucose 118 H Calcium 9.2 Troponin I < 0.015 Urine Color Urine Clarity Urine pH Ur Specific [place] Urine Protein Urine Glucose (UA) Urine Ketones Urine Occult Blood Urine Nitrite Urine Bilirubin Urine Urobilinogen Ur Leukocyte Esterase Urine RBC Urine WBC Ur Squamous Epith Cells Urine Bacteria Urine Mucus Phenobarbital 01/21/21 01/21/21 22:08 22:35 WBC RBC Hgb Hct MCV MCH MCHC RDW Std Deviation RDW Coeff of [place] Plt Count MPV Immature Gran % (Auto) Neut % (Auto) Lymph % (Auto) [place] % (Auto) Eos % (Auto) Baso % (Auto) Absolute Neuts (auto) Absolute Lymphs (auto) Nucleated RBC % PT INR APTT Sodium Potassium Chloride Carbon Dioxide Anion Gap BUN Creatinine Estim Creat Clear Calc Est GFR (MDRD) Af Amer Est GFR (MDRD) Non-Af BUN/Creatinine Ratio Glucose Calcium Troponin I Urine Color Yellow Urine Clarity Clear Urine pH 6.5 Ur Specific [place] 1.005 Urine Protein 100 H Urine Glucose (UA) Normal Urine Ketones Negative Urine Occult Blood Negative Urine Nitrite Negative Urine Bilirubin Negative Urine Urobilinogen Normal Ur Leukocyte Esterase Negative Urine RBC 0-5 SEEN Urine WBC 0 SEEN Ur Squamous Epith Cells 0 SEEN Urine Bacteria 0 SEEN Urine Mucus 0 SEEN Phenobarbital 12.[address] 01/21/21 21:02 IMPRESSION: Mild atrophy and periventricular white matter ischemic changes Findings which may be consistent with subacute infarct in the right posterior medial temporal lobe and occipital lobe. No evidence for acute bleed Electronically Signed: Everton Abraham MD at 21:34 EDT , Service support , ADDENDUM: 01/21/21 2143 IMPRESSION: Mild atrophy and periventricular white matter ischemic changes Findings which may be consistent with subacute infarct in the right posterior medial temporal lobe and occipital lobe. No evidence for acute bleed N.B. : The above information has been verbally conveyed by Everton Abraham MD to Karen Roldan MD, on 01/21/2021 21:36:29 (ET). Electronically Signed: Everton Abraham MD at 21:34 EDT , Service support , Head/Neck CTA 01/21/21 21:31 IMPRESSION: Mild atherosclerotic changes of the head and neck without evidence for hemodynamically significant stenosis Electronically Signed: Everton Abraham MD at 22:48 EDT , Service support , Chest X-Ray 01/21/21 21:40 IMPRESSION: No acute cardiopulmonary pathology Electronically Signed: Everton Abraham MD at 22:43 EDT , Service support , Assessment & Plan Assessment/Plan (1) Acute encephalopathy: (2) Stroke-like symptoms: PLAN: Acute metabolic encephalopathy/strokelike symptoms NINDS NIH Scale was 0 CT of the head with subacute infarct in the right posterior medial temporal lobe and occipital lobe. Head and neck CTA without any hemodynamically significant stenosis. Serial NIH is ordered. Discussed the case with emergency department doctor who stated that per tele- neurologist if metabolic work-up was negative MRI should be pursued. MRI of brain ordered. Lipid level on 11/30/2020 reviewed. Patient with triglycerides of 218. Cholesterol of 228. LDL of 142. VLDL of 44. Old records reviewed showed A1c on 11/30/2020 was 10.2. Physical therapy, and occupational therapy to work with patient. N.p.o. until bedside swallow eval. Daily aspirin; Plavix and high intensity statin continued.. Permissive hypertension. Control blood pressure with labetalol and hydralazine for systolic blood pressure of more than 220 or diastolic blood pressure of more than 120. We will check vitamin B-12 and TSH. Check CMP. Check ammonia level. Leukocytosis Patient with white count of 14 and with neutrophilic predominance. Urinalysis with no markers of infection Impression of chest x-ray by radiology. No acute cardiopulmonary pathology. Actual chest x-ray image was independently evaluated. I agree with radiologist interpretation. Diabetes mellitus with nephropathy Urinalysis showed proteinuria. Patient with mild hyperglycemia on presentation. Patient is at risk for hypoglycemia. Basal insulin the escalated. Hold prandial insulin for now. Accu-Chek with correction scale insulin ordered. Accu-Chek QA [facility] with correction scale insulin ordered. Seizure disorder Home seizure medication continued. DVT prophylaxis Subcutaneous Lovenox ordered. Charges/Coding Multi Select Codes Visit Charges Observation E&M Codin Initial observation care L3
[2021-01-22] VITALS (15 sets, daily range): BP systolic 106–143; BP diastolic 58–75; PULSE 69–79; RESP 12–20; TEMP 36.2–36.9; O2SAT 96–97; BMI 38.3
[2021-01-22 05:21] LABS: Bedside Glucose 78 mg/dL (70-110)
[2021-01-22] MEDS: Phenobarbital 32.4 MG Tablet PO ×2 (05:22→20:32)
[2021-01-22 06:51] LABS: Absolute Neutrophil Count 5.3 X10^3/uL (2.0-7.7); Basophil# 0.11 X10^3/uL; Basophil% 1.1 % (0-1); Eosinophil# 0.46 X10^3/uL; Eosinophils% 4.6 % (0-5); Hematocrit 33.2 % (37-47); Hemoglobin 11.4 g/dL (12.0-15.0); Lymphocyte % 32.2 % (19-41); Mean Corp Hgb Conc 34.3 g/dL (32-36); Mean Corpuscular Hgb 30.6 pg (27.0-32.0); Mean Corpuscular Volume 89.2 fL (81-99); Mean Platelet Vol. 10.7 fl (6.2-12.0); Monocyte# 0.81 X10^3/uL; Monocyte% 8.2 % (0-10); NRBC Flagged by Analyzer 0 % (0-5); Neutrophil # 5.32 X10^3/uL (2.7-7.7); Neutrophil % 53.6 % (47-70); Platelet Count 358 K/mm3 (150-450); RBC Distribution Width CV 13.6 % (11.6-14.6); RBC Distribution Width SD 44.8 fl (35.1-43.9); Red Blood Count 3.72 M/mm3 (4.2-5.4); White Blood Count 9.9 K/mm3 (4.4-11.0)
[2021-01-22] MEDS: Albuterol 2.5 MG/3 ML VIAL.NEB. INHALATION ×3 (06:57→19:21)
[2021-01-22] MEDS: Budesonide Respules 0.5 MG/2 ML AMPUL.NEB. INHALATION ×2 (06:58→19:21)
[2021-01-22 07:32] LABS: ALB/GLOB Ratio 0.8 RATIO (0.9-2.4); AST(SGOT) 14 U/L (15-37); Alanine Aminotransfer ALT/SGPT 8 U/L (13-56); Albumin, Serum 2.5 g/dL (3.2-5.0); Alkaline Phosphatase 100 U/L (45-117); Anion Gap 9 (5-15); BUN 10 mg/dL (7-18); BUN/Creat Ratio 14.5 RATIO (10-20); Calcium,Total 8.8 mg/dL (8.5-10.1); Chloride 105 mmol/L (98-107); Creatinine, Serum 0.69 mg/dL (0.55-1.02); EST Glomerular Filtration Rate 89 mL/min (>60); Est Glom Filt Rate - Afr Amer 108 mL/min (>60); Globulin 3.2 g/dL (2.2-4.2); Glucose 91 mg/dL (74-106); Potassium 3.2 mmol/L (3.5-5.1); Protein, Total 5.7 g/dL (6.4-8.2); Sodium Level 139 mmol/L (136-145); Thyroid Stim Hormone (TSH) 1.29 uIU/mL (0.358-3.74)
[2021-01-22] MEDS: Aspirin 81 MG TAB.CHEW PO (08:27)
[2021-01-22] MEDS: 0.9% Saline Lock 10 ML Syringe IV (08:29)
--- NOTE | 2021-01-22 08:37 | MRI_ITS ---
STUDY: MRI BRAIN WITHOUT CONTRAST REASON FOR EXAM: Female, 70 years old. stroke like symptoms, INCREASED WEAKNESS, FALLS ,CONFUSION TECHNIQUE: Standardized multiplanar fat and water weighted pulse sequences were obtained. COMPARISON: CT 01/21/2021, MRI 11/28/2020 FINDINGS: There is mild cerebral atrophy with widening of the extra-axial spaces and ventricular dilatation. There are a limited number of small white matter hyperintensities, distributed throughout the deep white matter tracts of the cerebral hemispheres, consistent with mild chronic white matter ischemic changes. Irregular hyperintensity of the right occipital lobe demonstrates restricted diffusion consistent with subacute infarct. Normal T2* images of the brain without demonstrated susceptibility artifact. There is no demonstrated hemosiderin stain. Normal bilateral basal ganglia. Normal thalami. There is no extra-axial fluid accumulation. Normal flow voids within the major intracranial circulation suggesting patency by spin echo criteria. Normal sella turcica, pituitary gland, infundibular stalk, optic chiasm and hypothalamus. Normal tectal plate and pineal gland. Normal midbrain, mary jo and medulla. Normal cerebellum. Normal basal cisterns. Normal bilateral temporal bones. Normal bilateral internal auditory canals. There are bilateral ocular lens implants with otherwise normal intraorbital contents. Air-fluid level in the right maxillary sinus consistent with acute sinusitis. Normal calvarium and skull base. Normal visualized soft tissue structures. Normal visualized upper cervical spine. MRI/Brain without Contrast IMPRESSION: Involutional changes of the brain, as described above. Subacute right posterior cerebral artery infarct. Electronically Signed: Deep Echols MD at 12:32 EDT Tel , Service support ,
[2021-01-22] MEDS: Topiramate 50 MG Tablet PO ×2 (10:08→20:32)
[2021-01-22] MEDS: Cholecalciferol (VIT D3) 25 MCG TABLET (1,000 UNITS) 50 MCG PO (10:09)
[2021-01-22] MEDS: lamoTRIgine 150 MG Tablet 300 MG PO ×2 (10:09→20:32)
[2021-01-22] MEDS: Clopidogrel Bisulfate 75 MG Tablet PO (10:09)
[2021-01-22] MEDS: Enoxaparin 40 MG/0.4 ML Syringe SC (10:10)
[2021-01-22] MEDS: Loratadine 10 MG Tablet PO (10:10)
[2021-01-22] MEDS: Pantoprazole Sodium 20 MG Tablet PO ×2 (10:10→20:32)
[2021-01-22] MEDS: Nystatin Powder 15gm Bottle 1 APPLIC TOPICAL ×2 (10:16→20:33)
[2021-01-22 10:58] LABS: Bedside Glucose 97 mg/dL (70-110)
--- NOTE | 2021-01-22 11:05 | PN.HOSP_ITS ---
Documented by User: Froylan LINARES 01/22/21 14:54 Subjective Subjective Patient is a 7-year-old female lying in bed, alert to self. Patient unable to provide much insight into current condition due to what appears to be baseline confusion. This provider unsuccessfully attempted to contact patient's antonia castorena. Objective Data Objective Data Vital Signs: Vital Signs Temp Pulse Resp BP Pulse Ox 98.2 F 71 16 106/59 L 97 01/22/21 08:05 01/22/21 08:05 01/22/21 08:05 01/22/21 08:05 01/22/21 08:05 Oxygen Flow Rate (L/min) 97 Oxygen Delivery Method Room Air Weight: 237 lb 10.533 oz Body Mass Index (BMI) 38.3 Intake & Output: Intake and Output for Last 24 Hours 01/20/21 01/21/21 01/22/21 23:59 23:59 23:59 Intake Total 120 / 120 Output Total 350 / 350 Balance -230 / -230 Lab / Micro Data Result Diagrams: 01/22/21 06:26 01/22/21 06:26 Labs: Laboratory Results - last 24 hr 01/21/21 01/21/21 01/21/21 21:05 21:05 21:05 WBC 14.0 H RBC 3.99 L Hgb 12.2 Hct 35.8 L MCV 89.7 MCH 30.6 MCHC 34.1 RDW Std Deviation 44.4 H RDW Coeff of Linda 13.4 Plt Count 385 MPV 10.6 Immature Gran % (Auto) 0.600 Neut % (Auto) 68.8 Lymph % (Auto) 21.1 Wright % (Auto) 6.2 Eos % (Auto) 2.6 Baso % (Auto) 0.7 Absolute Neuts (auto) 9.7 H Absolute Lymphs (auto) 2.96 Nucleated RBC % 0 PT 13.1 INR 1.1 APTT 29.0 Sodium 135 L Potassium 3.7 Chloride 102 Carbon Dioxide 25.0 Anion Gap 8 BUN 13 Creatinine 0.71 Estim Creat Clear Calc 47.10 Est GFR (MDRD) Af Amer 105 Est GFR (MDRD) Non-Af 87 BUN/Creatinine Ratio 18.4 Glucose 118 H Calcium 9.2 Total Bilirubin AST ALT Alkaline Phosphatase Ammonia Troponin I < 0.015 Total Protein Albumin Globulin Albumin/Globulin Ratio TSH Urine Color Urine Clarity Urine pH Ur Specific [employer] Urine Protein Urine Glucose (UA) Urine Ketones Urine Occult Blood Urine Nitrite Urine Bilirubin Urine Urobilinogen Ur Leukocyte Esterase Urine RBC Urine WBC Ur Squamous Epith Cells Urine Bacteria Urine Mucus Phenobarbital POC Glucose 01/21/21 01/21/21 01/22/21 22:08 22:35 05:16 WBC RBC Hgb Hct MCV MCH MCHC RDW Std Deviation RDW Coeff of Linda Plt Count MPV Immature Gran % (Auto) Neut % (Auto) Lymph % (Auto) Wright % (Auto) Eos % (Auto) Baso % (Auto) Absolute Neuts (auto) Absolute Lymphs (auto) Nucleated RBC % PT INR APTT Sodium Potassium Chloride Carbon Dioxide Anion Gap BUN Creatinine Estim Creat Clear Calc Est GFR (MDRD) Af Amer Est GFR (MDRD) Non-Af BUN/Creatinine Ratio Glucose Calcium Total Bilirubin AST ALT Alkaline Phosphatase Ammonia Troponin I Total Protein Albumin Globulin Albumin/Globulin Ratio TSH Urine Color Yellow Urine Clarity Clear Urine pH 6.5 Ur Specific [employer] 1.005 Urine Protein 100 H Urine Glucose (UA) Normal Urine Ketones Negative Urine Occult Blood Negative Urine Nitrite Negative Urine Bilirubin Negative Urine Urobilinogen Normal Ur Leukocyte Esterase Negative Urine RBC 0-5 SEEN Urine WBC 0 SEEN Ur Squamous Epith Cells 0 SEEN Urine Bacteria 0 SEEN Urine Mucus 0 SEEN Phenobarbital 12.4 POC Glucose 78 01/22/21 01/22/21 01/22/21 06:26 06:26 06:26 WBC 9.9 RBC 3.72 L Hgb 11.4 L Hct 33.2 L MCV 89.2 MCH 30.6 MCHC 34.3 RDW Std Deviation 44.8 H RDW Coeff of Linda 13.6 Plt Count 358 MPV 10.7 Immature Gran % (Auto) 0.300 Neut % (Auto) 53.6 Lymph % (Auto) 32.2 Wright % (Auto) 8.2 Eos % (Auto) 4.6 Baso % (Auto) 1.1 H Absolute Neuts (auto) 5.3 Absolute Lymphs (auto) 3.20 Nucleated RBC % 0 PT INR APTT Sodium 139 Potassium 3.2 L Chloride 105 Carbon Dioxide 25.0 Anion Gap 9 BUN 10 Creatinine 0.69 Estim Creat Clear Calc 49.00 Est GFR (MDRD) Af Amer 108 Est GFR (MDRD) Non-Af 89 BUN/Creatinine Ratio 14.5 Glucose 91 Calcium 8.8 Total Bilirubin 0.30 AST 14 L ALT 8 L Alkaline Phosphatase 100 Ammonia 27.0 Troponin I Total Protein 5.7 L Albumin 2.5 L Globulin 3.2 Albumin/Globulin Ratio 0.8 L TSH 1.29 Urine Color Urine Clarity Urine pH Ur Specific [employer] Urine Protein Urine Glucose (UA) Urine Ketones Urine Occult Blood Urine Nitrite Urine Bilirubin Urine Urobilinogen Ur Leukocyte Esterase Urine RBC Urine WBC Ur Squamous Epith Cells Urine Bacteria Urine Mucus Phenobarbital POC Glucose 01/22/21 08:09 WBC RBC Hgb Hct MCV MCH MCHC RDW Std Deviation RDW Coeff of Linda Plt Count MPV Immature Gran % (Auto) Neut % (Auto) Lymph % (Auto) Wright % (Auto) Eos % (Auto) Baso % (Auto) Absolute Neuts (auto) Absolute Lymphs (auto) Nucleated RBC % PT INR APTT Sodium Potassium Chloride Carbon Dioxide Anion Gap BUN Creatinine Estim Creat Clear Calc Est GFR (MDRD) Af Amer Est GFR (MDRD) Non-Af BUN/Creatinine Ratio Glucose Calcium Total Bilirubin AST ALT Alkaline Phosphatase Ammonia Troponin I Total Protein Albumin Globulin Albumin/Globulin Ratio TSH Urine Color Urine Clarity Urine pH Ur Specific [employer] Urine Protein Urine Glucose (UA) Urine Ketones Urine Occult Blood Urine Nitrite Urine Bilirubin Urine Urobilinogen Ur Leukocyte Esterase Urine RBC Urine WBC Ur Squamous Epith Cells Urine Bacteria Urine Mucus Phenobarbital POC Glucose 97 Radiography Diagnostic Testing: Radiology Impression Brain CT 01/21/21 21:02 IMPRESSION: Mild atrophy and periventricular white matter ischemic changes Findings which may be consistent with subacute infarct in the right posterior medial temporal lobe and occipital lobe. No evidence for acute bleed Electronically Signed: Everton Abraham MD at 21:34 EDT , Service support , ADDENDUM: 01/21/21 2143 IMPRESSION: Mild atrophy and periventricular white matter ischemic changes Findings which may be consistent with subacute infarct in the right posterior medial temporal lobe and occipital lobe. No evidence for acute bleed N.B. : The above information has been verbally conveyed by Everton Abraham MD to Karen Roldan MD, on 01/21/2021 21:36:29 (ET). Electronically Signed: Everton Abraham MD at 21:34 EDT , Service support , Head/Neck CTA 01/21/21 21:31 IMPRESSION: Mild atherosclerotic changes of the head and neck without evidence for hemodynamically significant stenosis Electronically Signed: Everton Abraham MD at 22:48 EDT , Service support , Chest X-Ray 01/21/21 21:40 IMPRESSION: No acute cardiopulmonary pathology Electronically Signed: Everton Abraham MD at 22:43 EDT , Service support , Physical Exam Narrative See subjective. Const alert Orientation / Consciousness: confused HEENT head/scalp atraumatic and moist oral mucous membranes Head and Scalp: normocephalic Neck no lymphadenopathy, supple and no JVD Resp normal respiratory effort, no retractions and no use of accessory muscles Cardio regular rate, regular rhythm, no murmurs and no JVD GI normal to inspection, nondistended, normoactive bowel sounds, soft to palpation and non-tender Extremity normal to inspection, full ROM and no clubbing, cyanosis or edema Skin no rashes or lesions noted, no wounds and skin turgor normal Neuro CN's II-XII intact bilaterally Psych affect normal Assessment & Plan Assessment/Plan (1) Acute encephalopathy: (2) Stroke-like symptoms: (3) Generalized weakness: (4) Confusion: (5) Leukocytosis: (6) Diabetes mellitus type 2 in obese: (7) Seizures: PLAN: See subjective for patient presentation. On discussion with patient's family, patient is currently being taken care of by her son, however this is a significant burden on the family right now. This provider will reach out to case management for possible placement into SNF. 1) Suspected Stroke Brain CT on admission demonstrated subacute infarct in the posterior medial temporal and occipital lobes. Head and neck CT-A unremarkable. Patient already on aspirin, plavix and statin at home. Brain MRI ordered/results pending. NIHSS 1. Plan; continue to monitor, labetalol and hydralazine for systolic blood pressure greater than 220 or diastolic greater than 120, continue NIHSS. 2) Leukocytosis Currently 9.9, was 14 at admission. Patient's vital signs have been stable and afebrile throughout admission. 3) Hypokalemia Currently 3.2. Plan; Will replace 4) Seizure disorder Continue home lamotrigine, topiramate and phenobarbital. 5) DM 2 w/ nephropathy Hemoglobin A1c from 11/30/2020 was 10.2, not within goal. Hyperglycemic on admission. Plan; continue basal insulin, continue sliding scale insulin, continue Accu-Cheks. DVT prophylaxis -Lovenox SC Patient seen by Froylan Cain PA-C, under the supervision of Dr. Zhu Documented by User: Dr. Anabell Zhu MD 01/22/21 15:05 Objective Data Lab / Micro Data Result Diagrams: 01/22/21 06:26 01/22/21 06:26 Charges/Coding Addendum Addendum: Hospitalist note: I am seeing this patient in conjunction with Froylan Cain. I independently seen and examined the patient. Progress note above, laboratory data and imaging studies reviewed and I concur with above treatment plan. Today, patient is sitting in a chair, resting comfortably. She was oriented x2, disoriented to time and seemed to be her baseline. No other complaints. Her vital signs are stable. - Physical Exam General: Alert, Oriented x2, Cooperative, No apparent distress. HEENT: Atraumatic, PERRLA, EOMI. Neck: Supple, No JVD, Negative Carotid Bruits, Trachea Midline, Thyroid Normal. Lungs: Clear to auscultation, Normal air movement, No rhonchi, No wheeze, No rales. Cardiovascular: Regular rate, Regular Rhythm, Normal S1, Normal S2, PMI Normal. Abdomen: Bowel Sounds Present, Soft, Non Tender, Non-Distended, No Hepato-splenomegaly. Extremities: No clubbing, No cyanosis, No edema Skin: No rashes, No breakdown Neurological: Cranial nerves are intact, no focal deficit neuro grossly intact Vital Signs are stable. Assessment and plan: #1 confusion/concern for stroke. MRI brain revealed subacute right posterior cerebral artery infarct which was diagnosed 2 months ago on MRI on November 28, 2020. No new stroke. Patient is already on aspirin, statin and Plavix. Her vital signs are stable. No evidence of infectious etiology LFT and ammonia was normal. Head and neck CTA as well as CT scan brain reviewed. Chest x-ray was unremarkable. Routine blood work was unremarkable. Patient's family requested placement to [facility] facility. Will consult certified social workers in health care and case management. #2 other chronic medical problems: Stable, continue current medications as above. This note was generated with [employer] dictation software. It may contain incorrect words, spelling, and punctuation that were not noted in checking the note before signing. Visit Charges OBSV E&M: 30368 Subsequent observation care L2
[2021-01-22 12:50] LABS: Bedside Glucose 213 mg/dL (70-110)
[2021-01-22] MEDS: Insulin Lispro 100 UNIT/ML INSULN.PEN SC ×3 (12:52→20:33)
[2021-01-22] MEDS: Potassium Chloride Oral Tablet 20 MEQ 60 MEQ PO (12:52)
[2021-01-22] MEDS: Glucerna Shake 120 ML LIQUID PO ×2 (15:44→20:36)
--- NOTE | 2021-01-22 15:44 | NURSING ---
Son Miguel Ángel and DIL Denise in to visit. Pt lives with them and they voiced concerns over pt coming home and wanting to explore need for SNF placement. Per Miguel Ángel and Denise, pt checked self out of a SNF facility recently. CM is consulted and will follow with pt. Phone number for Denise .
[2021-01-22 17:06] LABS: Bedside Glucose 284 mg/dL (70-110)
[2021-01-22] MEDS: Senna/Docusate Sodium 1 Tablet 2 TABLET PO (20:32)
[2021-01-22] MEDS: Atorvastatin Calcium 80 MG Tablet PO (20:32)
--- NOTE | 2021-01-22 20:32 | NURSING ---
This RN gave pt evening medications per patient request.
[2021-01-22] MEDS: Insulin NPH Human 100 UNITS/ML PEN 20 UNITS SC (20:34)
[2021-01-22 20:51] LABS: Bedside Glucose 213 mg/dL (70-110)
[2021-01-23] VITALS (8 sets, daily range): BP systolic 154–174; BP diastolic 69–77; PULSE 67–104; RESP 16–18; TEMP 36.2–37.1; O2SAT 94–99
[2021-01-23 07:04] LABS: Anion Gap 7 (5-15); BUN 11 mg/dL (7-18); BUN/Creat Ratio 15.3 RATIO (10-20); Calcium,Total 9.3 mg/dL (8.5-10.1); Chloride 107 mmol/L (98-107); Creatinine, Serum 0.72 mg/dL (0.55-1.02); EST Glomerular Filtration Rate 85 mL/min (>60); Est Glom Filt Rate - Afr Amer 103 mL/min (>60); Glucose 277 mg/dL (74-106); Potassium 4.4 mmol/L (3.5-5.1); Sodium Level 138 mmol/L (136-145)
[2021-01-23] MEDS: Phenobarbital 32.4 MG Tablet PO ×3 (07:21→21:31)
[2021-01-23] MEDS: Polyethylene Glycol 3350 17 GM PACKET PO (08:12)
[2021-01-23] MEDS: Insulin Lispro 100 UNIT/ML INSULN.PEN SC ×4 (08:14→21:32)
[2021-01-23] MEDS: Aspirin 81 MG TAB.CHEW PO (08:14)
[2021-01-23] MEDS: Insulin NPH Human 100 UNITS/ML PEN 30 UNITS SC (08:15)
[2021-01-23 08:25] LABS: Bedside Glucose 308 mg/dL (70-110)
[2021-01-23 08:37] LABS: Vitamin B12 619 pg/mL (211-911)
--- NOTE | 2021-01-23 10:48 | PCM.PN.HOSP ---
Documented by User: Froylan LINARES 01/23/21 11:13 Subjective Subjective Patient is a 70-year-old female comfortably resting in bed, alert and orient x3. Patients mentation have improved markedly from yesterday as per patient is able to hold conversation and voiced her concerns. Denies chest pain, shortness of breath, palpitations, hemoptysis, sputum production, fever, chills, N/V/D. Objective Data Objective Data Vital Signs: Vital Signs Temp Pulse Resp BP Pulse Ox 98.2 F 74 16 164/69 H 99 01/23/21 10:46 01/23/21 10:46 01/23/21 10:46 01/23/21 10:46 01/23/21 10:46 Oxygen Flow Rate (L/min) 97 Oxygen Delivery Method Room Air Weight: 237 lb 10.533 oz Body Mass Index (BMI) 38.3 Intake & Output: Intake and Output for Last 24 Hours 01/21/21 01/22/21 01/23/21 23:59 23:59 23:59 Intake Total 780 / 900 120 / 120 Output Total 1150 / 1150 100 / 100 Balance -370 / -250 Lab / Micro Data Result Diagrams: 01/22/21 06:26 01/23/21 06:36 Labs: Laboratory Results - last 24 hr 01/22/21 01/22/21 01/22/21 06:26 08:09 12:48 Sodium Potassium Chloride Carbon Dioxide Anion Gap BUN Creatinine Estim Creat Clear Calc Est GFR (MDRD) Af Amer Est GFR (MDRD) Non-Af BUN/Creatinine Ratio Glucose Calcium Vitamin B12 619 POC Glucose 97 213 H 01/22/21 01/22/21 01/23/21 17:01 20:31 06:36 Sodium 138 Potassium 4.4 Chloride 107 Carbon Dioxide 24.0 Anion Gap 7 BUN 11 Creatinine 0.72 Estim Creat Clear Calc 49.00 Est GFR (MDRD) Af Amer 103 Est GFR (MDRD) Non-Af 85 BUN/Creatinine Ratio 15.3 Glucose 277 H Calcium 9.3 Vitamin B12 POC Glucose 284 H 213 H 01/23/21 08:07 Sodium Potassium Chloride Carbon Dioxide Anion Gap BUN Creatinine Estim Creat Clear Calc Est GFR (MDRD) Af Amer Est GFR (MDRD) Non-Af BUN/Creatinine Ratio Glucose Calcium Vitamin B12 POC Glucose 308 H Radiography Diagnostic Testing: Radiology Impression Brain MRI 01/22/21 08:37 IMPRESSION: Involutional changes of the brain, as described above. Subacute right posterior cerebral artery infarct. Electronically Signed: Deep Echols MD at 12:32 EDT Tel , Service support , Physical Exam Const alert, oriented x3 and no apparent distress HEENT head/scalp atraumatic and moist oral mucous membranes Head and Scalp: normocephalic Eyes PERRL, EOMs intact bilaterally and conjunctivae normal Neck no lymphadenopathy, supple and no JVD Resp normal respiratory effort, no retractions and no use of accessory muscles Cardio regular rate, regular rhythm, no murmurs and no JVD GI normal to inspection, nondistended, normoactive bowel sounds Skin no rashes or lesions noted Neuro CN's II-XII intact bilaterally Psych affect normal Assessment & Plan Assessment/Plan (1) Acute encephalopathy: (2) Stroke-like symptoms: (3) Generalized weakness: (4) Confusion: (5) Leukocytosis: (6) Seizures: (7) Diabetes mellitus type 2 in obese: PLAN: See subjective for patient presentation. Patient's mentation has significantly improved from yesterday as she is now alert and oriented and is able to voice concerns. Discussed with patient the possibility of going to alf to which patient was adamantly against, patient voices that she does not want to go to residential facility for placement. Will reengage with family and patient about discharge plan. 1) Subacute on chronic Stroke Brain MRI completed on 01/22 demonstrated subacute right posterior cerebral artery infarct as well as chronic involutional changes of the brain. The stroke and stroke location are the same from stroke suffered in November 2020. Patient already on aspirin, plavix and statin at home. Plan; continue to monitor, labetalol and hydralazine for systolic blood pressure greater than 220 or diastolic greater than 120. 2) Leukocytosis Currently 9.9, was 14 at admission. Patient's vital signs have been stable and afebrile throughout admission. 3) Hypokalemia Currently 3.2. Plan; Will replace 4) Seizure disorder Continue home lamotrigine, topiramate and phenobarbital. 5) DM 2 w/ nephropathy Hemoglobin A1c from 11/30/2020 was 10.2, not within goal. Hyperglycemic on admission. Plan; continue basal insulin, continue sliding scale insulin, continue Accu-Cheks. DVT prophylaxis -Lovenox [place] Patient seen by Froylan Cain PA-C, under the supervision of Dr. Sutton. Documented by User: Dr. Twan Sutton MD 01/23/21 13:42 Objective Data Lab / Micro Data Result Diagrams: 01/22/21 06:26 01/23/21 06:36 Assessment & Plan Addt'l Comments This patient was seen in conjunction with Froylan Cain PA-C. I have independently interviewed and examined the patient and reviewed pertinent historical, laboratory, and other data. Please refer to Froylan Cain PA-C's note for details of this patient's presentation, findings, and recommendations. I have reviewed Froylan Cain PA-C's note and concur with documented findings. In brief, patient is a A 70-year-old lady with previous CVA t admitted with generalized weakness. Imaging studies obtained demonstrated Subacute right posterior cerebral artery infarct. Physical Examination: GENERAL: cooperative HEENT: Atraumatic; EYES; Anicteric, Normal Conjunctiva NECK; supple, normal thyroid, RESPIRATORY: Diminished to auscultation CARDIOVASCULAR: Regular S1 S2, GI: soft, normoactive bowel sounds, : No Renal angle tenderness; NEURO: Awake; no lateralizing signs. SKIN: No Rash PSYCH; Flat affect Assessment: 1. 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 Hypokalemia 3. Seizure disorder 4. Diabetes mellitus type 2 5. Diabetic polyneuropathy 6. GERD 7. Dyslipidemia 8. Obesity with BMI of 38.4 9. Physical deconditioning 10. DVT prophylaxis Recommendations: 1. I have discussed the results of my overview and impressions with the patient 2. Options for management were reviewed Charges/Coding Visit Charges Inpatient E&M: 98015 Subs Hosp L2
[2021-01-23] MEDS: Enoxaparin 40 MG/0.4 ML Syringe SC (10:50)
[2021-01-23] MEDS: Cholecalciferol (VIT D3) 25 MCG TABLET (1,000 UNITS) 50 MCG PO (10:50)
[2021-01-23] MEDS: Topiramate 50 MG Tablet PO ×2 (10:51→21:31)
[2021-01-23] MEDS: Senna/Docusate Sodium 1 Tablet 2 TABLET PO ×2 (10:51→21:31)
[2021-01-23] MEDS: lamoTRIgine 150 MG Tablet 300 MG PO ×2 (10:51→21:32)
[2021-01-23] MEDS: Loratadine 10 MG Tablet PO (10:51)
[2021-01-23] MEDS: Pantoprazole Sodium 20 MG Tablet PO ×2 (10:51→21:31)
[2021-01-23] MEDS: Clopidogrel Bisulfate 75 MG Tablet PO (10:51)
[2021-01-23] MEDS: Nystatin Powder 15gm Bottle 1 APPLIC TOPICAL ×2 (10:52→21:36)
[2021-01-23] MEDS: Glucerna Shake 120 ML LIQUID PO ×2 (11:00→21:35)
[2021-01-23 12:35] LABS: Bedside Glucose 381 mg/dL (70-110)
[2021-01-23] MEDS: Ibuprofen 400 MG Tablet 800 MG PO (14:19)
--- NOTE | 2021-01-23 15:20 | CASEMGMT ---
BRANDI spoke with patient, her son, and daughter in law. They decided they will take her home. They asked about an external catheter and a gait belt. BRANDI told them BRANDI can talk with the [facility] in [place] to see what they can provide. They said patient had an appt with her doctor recently and they were going to have a nurse and therapy come out to the home. BRANDI told them BRANDI will follow up with [facility]. BRANDI called Vance PAZ at the [facility] clinic and left her a voice mail requesting a return call. Marcia FOREMAN
--- NOTE | 2021-01-23 15:56 | CASEMGMT ---
BRANDI received a return call from Vance at the [facility]. BRANDI told her about the external catheter and gait belt. BRANDI also asked about nursing and therapy. She said it was set up and patient's daughter declined when they went to the house. She will submit another request. Marcia FOREMAN
--- NOTE | 2021-01-23 16:15 | CHAPLAIN ---
Type of Pastoral Visit _x__ Initial Visit ___ Follow-up Visit ___ On-call Visit ___ General Patient Visit ___ Spiritual Assessment ___ Family Conference ___ Bereavement ___ Rapid Response ___ Code Blue ___ Other (describe below) Pastoral Care Referral From _x__ Patient ___ Family ___ Nurse ___ Physician ___ Field Instructor ___ Manager Of Investigations ___ Other (describe below) Sacrament/Intervention _x__ Active listening ___ Anointing ___ Synagogue ___ Bereavement ___ Communion _x__ Ya exploration ___ ___ Life review _x__ Prayer ___ Reconciliation ___ Sacrament of Sick _x__ Supportive presence ___ Wedding ___ Other (describe below) Pastoral Comments patient in spiritual distress and emotional; pt states that God has stopped hearing me and other details of concern; listening, affirming ya, giving prayer, supportive presence given.
[2021-01-23 17:11] LABS: Bedside Glucose 316 mg/dL (70-110)
[2021-01-23] MEDS: MELATONIN 3 MG TABLET PO (21:31)
[2021-01-23] MEDS: busPIRone 5 MG Tablet PO (21:31)
[2021-01-23] MEDS: Atorvastatin Calcium 80 MG Tablet PO (21:31)
[2021-01-23] MEDS: Insulin NPH Human 100 UNITS/ML PEN 20 UNITS SC (21:32)
[2021-01-23 22:15] LABS: Bedside Glucose 225 mg/dL (70-110)
[2021-01-24 03:00] VITALS: PULSE 71
[2021-01-24 03:18] VITALS: BP 152/64; PULSE 76; RESP 18; TEMP 36.3; O2SAT 98
[2021-01-24] MEDS: Phenobarbital 32.4 MG Tablet PO ×2 (05:32→12:57)
[2021-01-24] MEDS: Menthol/Lanolin/Calamine/Znox 113 GM Tube 1 APPLIC TOPICAL ×2 (05:33→12:56)
[2021-01-24 05:46] LABS: Absolute Lymphocyte Count 2.24 X10^3/uL (0.83-4.51); Absolute Neutrophil Count 3.6 X10^3/uL (2.0-7.7); Basophil% 1.4 % (0-1); Eosinophil# 0.43 X10^3/uL; Eosinophils% 6.2 % (0-5); Hematocrit 33.5 % (37-47); Hemoglobin 11.3 g/dL (12.0-15.0); Lymphocyte # 2.24 X10^3/ul (0.83-4.51); Lymphocyte % 32.5 % (19-41); Mean Corp Hgb Conc 33.7 g/dL (32-36); Mean Corpuscular Hgb 30.5 pg (27.0-32.0); Mean Corpuscular Volume 90.5 fL (81-99); Mean Platelet Vol. 10.7 fl (6.2-12.0); Monocyte# 0.53 X10^3/uL; Monocyte% 7.7 % (0-10); NRBC Flagged by Analyzer 0 % (0-5); Neutrophil # 3.58 X10^3/uL (2.7-7.7); Neutrophil % 51.9 % (47-70); Platelet Count 334 K/mm3 (150-450); RBC Distribution Width CV 13.2 % (11.6-14.6); RBC Distribution Width SD 43.5 fl (35.1-43.9); White Blood Count 6.9 K/mm3 (4.4-11.0)
[2021-01-24 06:06] LABS: Anion Gap 6 (5-15); BUN 9 mg/dL (7-18); BUN/Creat Ratio 12.8 RATIO (10-20); Calcium,Total 8.7 mg/dL (8.5-10.1); Chloride 103 mmol/L (98-107); EST Glomerular Filtration Rate 87 mL/min (>60); Est Glom Filt Rate - Afr Amer 106 mL/min (>60); Glucose 224 mg/dL (74-106); Sodium Level 135 mmol/L (136-145)
[2021-01-24 07:01] VITALS: PULSE 66
[2021-01-24 09:00] VITALS: BP 157/72; PULSE 72; RESP 18; TEMP 36.3; O2SAT 99
[2021-01-24] MEDS: Nystatin Powder 15gm Bottle 1 APPLIC TOPICAL (09:00)
[2021-01-24] MEDS: Polyethylene Glycol 3350 17 GM PACKET PO (09:00)
[2021-01-24] MEDS: Fluticasone 0.05% 1 SPRAY NASAL.SRY NASAL (09:00)
[2021-01-24] MEDS: Insulin Lispro 100 UNIT/ML INSULN.PEN SC ×2 (09:01→12:53)
[2021-01-24] MEDS: Insulin NPH Human 100 UNITS/ML PEN 30 UNITS SC (09:01)
[2021-01-24] MEDS: Senna/Docusate Sodium 1 Tablet 2 TABLET PO (09:02)
[2021-01-24] MEDS: lamoTRIgine 150 MG Tablet 300 MG PO (09:02)
[2021-01-24] MEDS: Pantoprazole Sodium 20 MG Tablet PO (09:02)
[2021-01-24] MEDS: Topiramate 50 MG Tablet PO (09:02)
[2021-01-24] MEDS: Aspirin 81 MG TAB.CHEW PO (09:03)
[2021-01-24] MEDS: Glucerna Shake 120 ML LIQUID PO ×2 (09:03→12:56)
[2021-01-24] MEDS: Clopidogrel Bisulfate 75 MG Tablet PO (09:03)
[2021-01-24] MEDS: Enoxaparin 40 MG/0.4 ML Syringe SC (09:03)
[2021-01-24] MEDS: Cholecalciferol (VIT D3) 25 MCG TABLET (1,000 UNITS) 50 MCG PO (09:03)
[2021-01-24] MEDS: Loratadine 10 MG Tablet PO (09:03)
[2021-01-24 09:16] LABS: Bedside Glucose 251 mg/dL (70-110)
[2021-01-24] MEDS: Magnesium Citrate 300 ML PO (10:00)
--- NOTE | 2021-01-24 12:55 | CASEMGMT ---
SW received a call from [facility]. [facility]. She asked that we let her know when she is discharged. The request for the gait belt and external catheter was given to the nurse at the [place]. Plan: d/c home with patient's son and daughter in law with [facility] health shelter, [facility]. Marcia FOREMAN
[2021-01-24 13:00] LABS: Bedside Glucose 276 mg/dL (70-110)
--- NOTE | 2021-01-24 13:01 | PCM.DC ---
Discharge Instructions Follow Up Care Test Results: Test results from this visit will be discussed in further detail at your follow-up appointment, if applicable. Discharge Plan Admission Admit Date/Time: 01/21/21 23:29 Primary Reason for Your Visit: Stroke Attending Provider: Twan Sutton Primary Care Provider: [facility] Discharge Orders/Prescriptions Prescriptions: Continued omeprazole 20 MG capsule 20 mg PO BID RF: 0 topiramate 50 MG tablet 50 mg PO BID RF: 0 albuterol sulfate 2.5 MG/3 ML solution for nebulization 2.5 mg inhalation Q4H PRN PRN (Reason: Wheezing) RF: 0 lamotrigine 150 MG tablet 300 mg PO BID RF: 0 multivitamin with minerals 1 EACH tablet 1 each PO DAILY RF: 0 carvedilol 12.5 MG tablet 12.5 mg PO BID Qty: 60 RF: 0 clopidogrel 75 MG tablet 75 mg PO DAILY Qty: 30 RF: 0 aspirin 81 MG tablet,chewable 81 mg PO DAILY@0800 Qty: 30 RF: 2 lisinopril 10 MG tablet 10 mg PO BID Qty: 0 RF: 0 phenobarbital 30 MG tablet 32.4 mg PO TID Qty: 0 RF: 0 atorvastatin 80 MG tablet 80 mg PO QHS Qty: 30 RF: 2 nystatin 1 APPLIC bottle 1 applic TOPICAL BID RF: 0 cetirizine 10 mg Tablet 10 mg PO DAILY RF: 0 Novolin R Flexpen 100 unit/mL (3 mL) Insulin Pen 20 unit SUBCUT BID RF: 0 Novolin N Flexpen 100 unit/mL (3 mL) Insulin Pen 60 unit SUBCUT BREAKFAST RF: 0 Novolin N Flexpen 100 unit/mL (3 mL) Insulin Pen 40 unit SUBCUT QHS RF: 0 budesonide-formoterol 80-4.5 mcg/actuation Hfa Aerosol Inhaler 2 puff INHALATION BID RF: 0 fluticasone propionate 50 mcg/actuation [place],Suspension 1 spray INTRANASAL DAILY RF: 0 cholecalciferol (vitamin D3) 50 mcg (2,000 unit) Tablet 50 mcg PO DAILY RF: 0 Diclo Gel 1 % Kit 2 g TOPICAL RF: 0 zinc oxide RF: 0 Referrals / Follow Up: Link Owens MD [STAFF PHYSICIAN] - [facility] [Primary Care Provider] - Within 2 Weeks Disposition Disposition (needs filled in before D/C Order can be placed): Home Health Service
--- NOTE | 2021-01-24 13:07 | DS.PCM_ITS ---
Documented by User: Froylan LINARES 01/24/21 13:21 Providers Date of Admission: 01/21/21 Primary Care Physician: [facility] Reason For Visit: STROKE-LIKE SYMPTOMS Diagnosis Discharge Diagnosis (1) Acute encephalopathy: Status: Acute Code(s): G93.40 - Encephalopathy, unspecified (2) Stroke-like symptoms: Status: Acute Code(s): R29.90 - Unspecified symptoms and signs involving the nervous system (3) Generalized weakness: Status: Acute Code(s): R53.1 - Weakness (4) Confusion: Status: Acute Code(s): R41.0 - Disorientation, unspecified (5) Leukocytosis: Status: Acute Code(s): D72.829 - Elevated white blood cell count, unspecified (6) Seizures: Status: Acute Code(s): R56.9 - Unspecified convulsions (7) Diabetes mellitus type 2 in obese: Status: Chronic Code(s): E11.69 - Type 2 diabetes mellitus with other specified complication; E66.9 - Obesity, unspecified Medications at Discharge Home Medications omeprazole 20 mg PO BID 12/19/13 topiramate 50 mg PO BID 12/19/13 albuterol sulfate 2.5 mg INHALATION Q4H PRN PRN 05/09/14 lamotrigine 300 mg PO BID 07/22/20 multivitamin with minerals 1 each PO DAILY 11/26/20 aspirin 81 mg PO DAILY@0800 #30 tab.chew 11/30/20 carvedilol 12.5 mg PO BID #60 tablet 11/30/20 clopidogrel 75 mg PO DAILY #30 tablet 11/30/20 lisinopril 10 mg PO BID #0 11/30/20 phenobarbital 32.4 mg PO TID #0 11/30/20 atorvastatin 80 mg PO QHS #30 tablet 12/02/20 nystatin 1 applic TOPICAL BID bottle 12/02/20 Diclo Gel 2 g TOPICAL 01/21/21 Novolin N Flexpen 40 unit SUBCUT QHS 01/21/21 Novolin N Flexpen 60 unit SUBCUT BREAKFAST 01/21/21 Novolin R Flexpen 20 unit SUBCUT BID 01/21/21 budesonide-formoterol 2 puff INHALATION BID 01/21/21 cetirizine 10 mg PO DAILY 01/21/21 cholecalciferol (vitamin D3) 50 mcg PO DAILY 01/21/21 fluticasone propionate 1 spray INTRANASAL DAILY 01/21/21 zinc oxide 01/22/21 Hospital Course Summary of Care Provided Minutes Spent on Discharge: 35 Hospital Course: Patient's mentation has significantly improved from admission as she is now alert and oriented and is able to voice concerns. Discharge plan; patient adamantly voiced concerns against going to SNF. Patient would like family to go to SNF, however feels that they can take care of patient at home with home health care. Home health care set up through case management/social work. Patient will be discharged today. 1) Subacute on chronic Stroke Brain MRI completed on 01/22 demonstrated subacute right posterior cerebral art lenny infarct as well as chronic involutional changes of the brain. The stroke and stroke location are the same from stroke suffered in November 2020. Patient already on aspirin, plavix and statin at home. Plan; continue aspirin, Plavix and statin. Establish care with Dr. Owens for ongoing Neurlogical care, follow-up with primary care provider within the next 2 weeks. 2) Leukocytosis Currently 9.9, was 14 at admission. Patient's vital signs have been stable and afebrile throughout admission. 3) Hypokalemia Currently 3.2. Plan; Will replace 4) Seizure disorder Continue home lamotrigine, topiramate and phenobarbital. Establish care with Dr. Owens for ongoing Neurlogical care. 5) DM 2 w/ nephropathy Hemoglobin A1c from 11/30/2020 was 10.2, not within goal. Plan; continue home diabetic regimen, follow-up with primary care provider within the next 2 weeks. Patient seen by Froylan Cain PA-C, under the supervision of Dr. Sutton. Physical Exam Narrative Patient is a 70-year-old female comfortably resting in chair, alert and orient x3. Denies any change or progression in symptoms from yesterday. Denies chest pain, shortness of breath, palpitations, fever, chills, N/V/D. Const alert, oriented x3 and no apparent distress HEENT normocephalic, head/scalp atraumatic and hearing grossly normal bilaterally Eyes PERRL and EOMs intact bilaterally Neck no lymphadenopathy, supple and no JVD Resp normal respiratory effort, no retractions and no use of accessory muscles Cardio regular rate, regular rhythm, no murmurs and no JVD GI normal to inspection, nondistended, normoactive bowel sounds and soft to palpation Extremity normal to inspection and full ROM Skin no rashes or lesions noted, no wounds and skin turgor normal Neuro CN's II-XII intact bilaterally Psych affect normal Weight / BMI Weight Weight: 237 lb 10.533 oz Body Mass Index (BMI) 38.3 ABG / Lab / Microbiology Data Result Diagrams: 01/24/21 05:40 01/24/21 05:40 Laboratory: Laboratory Results - last 24 hr 01/23/21 01/23/21 01/24/21 17:03 21:26 05:40 WBC 6.9 RBC 3.70 L Hgb 11.3 L Hct 33.5 L MCV 90.5 MCH 30.5 MCHC 33.7 RDW Std Deviation 43.5 RDW Coeff of Linda 13.2 Plt Count 334 MPV 10.7 Immature Gran % (Auto) 0.300 Neut % (Auto) 51.9 Lymph % (Auto) 32.5 [place] % (Auto) 7.7 Eos % (Auto) 6.2 H Baso % (Auto) 1.4 H Absolute Neuts (auto) 3.6 Absolute Lymphs (auto) 2.24 Nucleated RBC % 0 Sodium Potassium Chloride Carbon Dioxide Anion Gap BUN Creatinine Estim Creat Clear Calc Est GFR (MDRD) Af Amer Est GFR (MDRD) Non-Af BUN/Creatinine Ratio Glucose Calcium POC Glucose 316 H 225 H 01/24/21 01/24/21 01/24/21 05:40 08:53 12:52 WBC RBC Hgb Hct MCV MCH MCHC RDW Std Deviation RDW Coeff of Linda Plt Count MPV Immature Gran % (Auto) Neut % (Auto) Lymph % (Auto) [place] % (Auto) Eos % (Auto) Baso % (Auto) Absolute Neuts (auto) Absolute Lymphs (auto) Nucleated RBC % Sodium 135 L Potassium 4.0 Chloride 103 Carbon Dioxide 26.0 Anion Gap 6 BUN 9 Creatinine 0.70 Estim Creat Clear Calc 49.00 Est GFR (MDRD) Af Amer 106 Est GFR (MDRD) Non-Af 87 BUN/Creatinine Ratio 12.8 Glucose 224 H Calcium 8.7 POC Glucose 251 H 276 H Meaningful Use Info Meaningful Use Diagnoses (Choose all that apply): Ischemic CVA CVA Therapy Assessed for PT,OT and/or ST?: Yes Ischemic Stroke Antithrombotic order at d/c?: Yes Dx of Atrial fib/flutter?: No Statins at discharge?: Yes Primary Dx Acute Ischemic CVA?: No IV tPA ordered during stay?: No Reason IV t-PA not ordered: Procedure not Indicated Discharge Plan Admission Admit Date/Time: 01/21/21 23:29 Primary Reason for Your Visit: Stroke Attending Provider: Twan Sutton Primary Care Provider: [facility],[place] Discharge Orders/Prescriptions Prescriptions: Continued omeprazole 20 MG capsule 20 mg PO BID RF: 0 topiramate 50 MG tablet 50 mg PO BID RF: 0 albuterol sulfate 2.5 MG/3 ML solution for nebulization 2.5 mg inhalation Q4H PRN PRN (Reason: Wheezing) RF: 0 lamotrigine 150 MG tablet 300 mg PO BID RF: 0 multivitamin with minerals 1 EACH tablet 1 each PO DAILY RF: 0 carvedilol 12.5 MG tablet 12.5 mg PO BID Qty: 60 RF: 0 clopidogrel 75 MG tablet 75 mg PO DAILY Qty: 30 RF: 0 aspirin 81 MG tablet,chewable 81 mg PO DAILY@0800 Qty: 30 RF: 2 lisinopril 10 MG tablet 10 mg PO BID Qty: 0 RF: 0 phenobarbital 30 MG tablet 32.4 mg PO TID Qty: 0 RF: 0 atorvastatin 80 MG tablet 80 mg PO QHS Qty: 30 RF: 2 nystatin 1 APPLIC bottle 1 applic TOPICAL BID RF: 0 cetirizine 10 mg Tablet 10 mg PO DAILY RF: 0 Novolin R Flexpen 100 unit/mL (3 mL) Insulin Pen 20 unit SUBCUT BID RF: 0 Novolin N Flexpen 100 unit/mL (3 mL) Insulin Pen 60 unit SUBCUT BREAKFAST RF: 0 Novolin N Flexpen 100 unit/mL (3 mL) Insulin Pen 40 unit SUBCUT QHS RF: 0 budesonide-formoterol 80-4.5 mcg/actuation Hfa Aerosol Inhaler 2 puff INHALATION BID RF: 0 fluticasone propionate 50 mcg/actuation [place],Suspension 1 spray INTRANASAL DAILY RF: 0 cholecalciferol (vitamin D3) 50 mcg (2,000 unit) Tablet 50 mcg PO DAILY RF: 0 Diclo Gel 1 % Kit 2 g TOPICAL RF: 0 zinc oxide RF: 0 Referrals / Follow Up: Link Owens MD [STAFF PHYSICIAN] - [facility] [Primary Care Provider] - Within 2 Weeks Disposition Disposition (needs filled in before D/C Order can be placed): Home Health Service Documented by User: Dr. Twan Sutton MD 01/24/21 13:47 Providers Date of Admission: 01/21/21 Reason For Visit: STROKE-LIKE SYMPTOMS Medications at Discharge Home Medications omeprazole 20 mg PO BID 12/19/13 topiramate 50 mg PO BID 12/19/13 albuterol sulfate 2.5 mg INHALATION Q4H PRN PRN 05/09/14 lamotrigine 300 mg PO BID 07/22/20 multivitamin with minerals 1 each PO DAILY 11/26/20 aspirin 81 mg PO DAILY@0800 #30 tab.chew 11/30/20 carvedilol 12.5 mg PO BID #60 tablet 11/30/20 clopidogrel 75 mg PO DAILY #30 tablet 11/30/20 lisinopril 10 mg PO BID #0 11/30/20 phenobarbital 32.4 mg PO TID #0 11/30/20 atorvastatin 80 mg PO QHS #30 tablet 12/02/20 nystatin 1 applic TOPICAL BID bottle 12/02/20 Diclo Gel 2 g TOPICAL 01/21/21 Novolin N Flexpen 40 unit SUBCUT QHS 01/21/21 Novolin N Flexpen 60 unit SUBCUT BREAKFAST 01/21/21 Novolin R Flexpen 20 unit SUBCUT BID 01/21/21 budesonide-formoterol 2 puff INHALATION BID 01/21/21 cetirizine 10 mg PO DAILY 01/21/21 cholecalciferol (vitamin D3) 50 mcg PO DAILY 01/21/21 fluticasone propionate 1 spray INTRANASAL DAILY 01/21/21 zinc oxide 01/22/21 Hospital Course Operations None and - Summary of Care Provided Hospital Course: This patient was seen in conjunction with Froylan Cain PA-C. I have independently interviewed and examined the patient and reviewed pertinent historical, laboratory, and other data. Please refer to Froylan Cain PA-C's note for details of this patient's presentation, findings, and recommendations. I have reviewed Froylan Cain PA-C's note and concur with documented findings. In brief, patient is a A 70-year-old lady with previous CVA t admitted with generalized weakness. Imaging studies obtained demonstrated Subacute right posterior cerebral artery infarct. Assessment: 1. 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 Hypokalemia 3. Seizure disorder 4. Diabetes mellitus type 2 5. Diabetic polyneuropathy 6. GERD 7. Dyslipidemia 8. Obesity with BMI of 38.4 9. Physical deconditioning 10. DVT prophylaxis Hospital course: As documented above ABG / Lab / Microbiology Data Result Diagrams: 01/24/21 05:40 01/24/21 05:40 Discharge Plan Admission Admit Date/Time: 01/21/21 23:29 Primary Reason for Your Visit: Stroke Attending Provider: Twan Sutton Primary Care Provider: [facility] Discharge Orders/Prescriptions Prescriptions: Continued omeprazole 20 MG capsule 20 mg PO BID RF: 0 topiramate 50 MG tablet 50 mg PO BID RF: 0 albuterol sulfate 2.5 MG/3 ML solution for nebulization 2.5 mg inhalation Q4H PRN PRN (Reason: Wheezing) RF: 0 lamotrigine 150 MG tablet 300 mg PO BID RF: 0 multivitamin with minerals 1 EACH tablet 1 each PO DAILY RF: 0 carvedilol 12.5 MG tablet 12.5 mg PO BID Qty: 60 RF: 0 clopidogrel 75 MG tablet 75 mg PO DAILY Qty: 30 RF: 0 aspirin 81 MG tablet,chewable 81 mg PO DAILY@0800 Qty: 30 RF: 2 lisinopril 10 MG tablet 10 mg PO BID Qty: 0 RF: 0 phenobarbital 30 MG tablet 32.4 mg PO TID Qty: 0 RF: 0 atorvastatin 80 MG tablet 80 mg PO QHS Qty: 30 RF: 2 nystatin 1 APPLIC bottle 1 applic TOPICAL BID RF: 0 cetirizine 10 mg Tablet 10 mg PO DAILY RF: 0 Novolin R Flexpen 100 unit/mL (3 mL) Insulin Pen 20 unit SUBCUT BID RF: 0 Novolin N Flexpen 100 unit/mL (3 mL) Insulin Pen 60 unit SUBCUT BREAKFAST RF: 0 Novolin N Flexpen 100 unit/mL (3 mL) Insulin Pen 40 unit SUBCUT QHS RF: 0 budesonide-formoterol 80-4.5 mcg/actuation Hfa Aerosol Inhaler 2 puff INHALATION BID RF: 0 fluticasone propionate 50 mcg/actuation [place],Suspension 1 spray INTRANASAL DAILY RF: 0 cholecalciferol (vitamin D3) 50 mcg (2,000 unit) Tablet 50 mcg PO DAILY RF: 0 Diclo Gel 1 % Kit 2 g TOPICAL RF: 0 zinc oxide RF: 0 Referrals / Follow Up: Link Owens MD [STAFF PHYSICIAN] - [facility] [Primary Care Provider] - Within 2 Weeks Disposition Disposition (needs filled in before D/C Order can be placed): Home Health Service Charges/Coding Visit Charges Inpatient E&M: 92690 Disch Hosp Hospital Course Operations None and -
[2021-01-24] MEDS: Bisacodyl 10 MG Suppository RC (14:02)
--- NOTE | 2021-01-24 14:03 | CASEMGMT ---
BRANDI called patient's daughter in law Denise and let her know that the MA did set up home health through [facility]. SW told her they will call her or patient's son to set up a time. She said she [facility]. Plan: d/c home with patient's son and daughter in law with [facility] with [facility] correction, PT, and OT. Marcia FOREMAN
[2021-01-24 15:00] VITALS: BP 145/63; PULSE 71; PULSE 79; RESP 18; TEMP 36.9; O2SAT 100
--- NOTE | 2021-01-25 13:08 | CASEMGMT ---
SW received a voice mail from Froylan and RN at the [facility] ([phone]). He wanted to know what size gait belt to order and more about the external catheter. SW called him back and left him a message letting him know he should order a bigger gait belt as patient is a bigger lady. BRANDI also let him know that SW does not know anything about the external catheter. [facility] is not recommending this it is something family is requesting so he would be better off asking them. Marcia Encinas STACKER DRIVER AHSAN
[2021-01-25 18:32] LABS: Lamotrigine (Lamictal) Level 5.4 ug/mL (2.0-20.0)
== END 2021-01-24 13:06 | disposition home health service (06) ==
LOC: ED 23:12 → PCU 01-22 03:55
PROVIDERS: Hospitalist; Physician Assistant; Admitting Provider Hospitalist; Emergency Provider Emergency Medicine; Visit Provider Internal Medicine
DX: I63.531 Cerebral infarction due to unspecified occlusion or stenosis of right posterior cerebral artery (principal); G93.41 Metabolic encephalopathy; R53.1 Weakness; E11.21 Type 2 diabetes mellitus with diabetic nephropathy; E66.9 Obesity, unspecified; R29.810 Facial weakness; K59.00 Constipation, unspecified; R29.700 NIHSS score 0; G40.909 Epilepsy, unspecified, not intractable, without status epilepticus; D72.829 Elevated white blood cell count, unspecified; E87.6 Hypokalemia; E11.65 Type 2 diabetes mellitus with hyperglycemia; E11.42 Type 2 diabetes mellitus with diabetic polyneuropathy; K21.9 Gastro-esophageal reflux disease without esophagitis; E78.5 Hyperlipidemia, unspecified; Z79.02 Long term (current) use of antithrombotics/antiplatelets; Z79.82 Long term (current) use of aspirin; Z79.899 Other long term (current) drug therapy; Z79.4 Long term (current) use of insulin; Z79.52 Long term (current) use of systemic steroids; Z68.38 Body mass index [BMI] 38.0-38.9, adult; Z91.81 History of falling
CPT/HCPCS: 36415; 70450; 70496; 70498; 70551; 71045; 80048; 80053; 80184; 81001; 82140; 82542; 82607; 82962; 84443; 84484; 85025; 85610; 85730; 92507; 92610; 93005; 94640; 94762; 96372; 97162; 97166; 97530; 97535; 97802; 97803; 99218; 99285; Q9967; A4216; G0378

== ENCOUNTER 2021-02-11 14:08 | Observation (INO) | payer OTHER, SELFPAY ==
[2021-01-22 17:35] VITALS: BMI 38.3
[2021-02-11 14:10] VITALS: BP 161/78; PULSE 65; RESP 14; TEMP 36.8; O2SAT 99; BMI 38.7
--- NOTE | 2021-02-11 14:22 | CT_ITS ---
STUDY: CT BRAIN WITHOUT CONTRAST REASON FOR EXAM: Female, 70 years old. Confusion RADIATION DOSAGE (If Supplied By Facility): CTDIvol = ( 44.99 ) mGy, DLP = ( 796.11 ) mGycm TECHNIQUE: Transaxial CT imaging of the brain was performed without administration of intravenous contrast material. Individualized dose optimization techniques were used for this CT. COMPARISON: 01/21/2021, 01/22/2021 FINDINGS: Normal soft tissue structures. Normal calvarium. There is mild cerebral atrophy with widening of the extra-axial spaces and ventricular dilatation. There are areas of decreased attenuation within the white matter tracts of the supratentorial brain, consistent with microvascular disease changes. Normal basal ganglia and thalami. Normal brainstem. Normal cerebellum. There is no intracranial hemorrhage. Sequela of right occipital lobe infarction redemonstrated. There is mucoperiosteal inflammatory disease of the paranasal sinuses consistent with moderate chronic sinusitis. CT/Brain/Head without Contrast IMPRESSION: 1. No acute intracranial hemorrhage or mass effect. 2. Right GENERALIST territory infarction as seen on prior CT/MRI. 3. Central parenchymal volume loss. White matter changes that are nonspecific but most commonly associated with chronic small vessel ischemic disease. Electronically Signed: Caleb Olvera MD ([place]) at 14:55 EDT , Service support ,
[2021-02-11 14:33] LABS: Bacteria 0 SEEN /hpf (None Seen); Mucous, Urine 0 SEEN /hpf (<or=2+); Red Blood Cells-Urine 0 SEEN /hpf (0-5); Squamous Epithelial Cells - UA 0 SEEN /hpf (5-10); White Blood Cells 0 SEEN /hpf (0-5)
--- NOTE | 2021-02-11 14:34 | EDS_ITS ---
HPI History of Present Illness Chief Complaint: Confusion Informant: patient Narrative Narrative: Patient is a 70-year-old female who presents to the emergency department for confusion. She is accompanied by her son who she currently resides with. He states that she was not oriented. She did not know who his house they were in. She has episodes like this before in the past. She was recently discharged from the hospital in January and was found to have a subacute stroke. Patient was seen at outside hospital for constipation and was disimpacted recently. They did recommend that she go to a longterm. She is supposed to go this coming Saturday but he does not feel like he can care for her and she is not safe in his home anymore. He states that she is only slept about 6 hours over the past 3 weeks. She gets up to go to the bathroom very frequently whether this is urinating or to have a bowel movement. She has been complaining of abdominal pain. He states her last bowel movement was yesterday. She did have an episode of vomiting today. Did check her blood sugar it is in the 70s. They felt this was making her more confused.. No known fevers. At time of arrival to the ED her mental status has improved. She has had a couple falls over the past 3 weeks. She does have rectal pain and was diagnosed with fissures. [facility] Medical History Asthma Chronic pain Depression Diabetes mellitus Diabetes mellitus GERD (gastroesophageal reflux disease) Kidney stones Migraines Non-smoker Rheumatoid arthritis Seizures Stroke/cerebrovascular accident TIA (transient ischemic attack) Home Medications omeprazole 20 mg PO BID 12/19/13 [History Last Taken 07/22/20] topiramate 50 mg PO BID 12/19/13 [History Last Taken 07/22/20] albuterol sulfate 2.5 mg INHALATION Q4H PRN PRN 05/09/14 [History Last Taken Unknown] lamotrigine 300 mg PO BID 07/22/20 [History Last Taken Unknown] aspirin 81 mg PO DAILY@0800 #30 tab.chew 11/30/20 [Rx Last Taken Unknown] carvedilol 12.5 mg PO BID #60 tablet 11/30/20 [Rx Last Taken Unknown] clopidogrel 75 mg PO DAILY #30 tablet 11/30/20 [Rx Last Taken Unknown] lisinopril 10 mg PO BID #0 11/30/20 [Rx Last Taken Unknown] phenobarbital 32.4 mg PO TID #0 11/30/20 [Rx Last Taken 07/22/20] atorvastatin 80 mg PO QHS #30 tablet 12/02/20 [Rx Last Taken Unknown] Diclo Gel 2 g TOPICAL BID 01/21/21 [History Last Taken Unknown] Novolin N Flexpen 40 unit SUBCUT QHS 01/21/21 [History Last Taken Unknown] Novolin N Flexpen 60 unit SUBCUT BREAKFAST 01/21/21 [History Last Taken Unknown] Novolin R Flexpen 20 unit SUBCUT BID 01/21/21 [History Last Taken Unknown] budesonide-formoterol 2 puff INHALATION BID 01/21/21 [History Last Taken Unknown ] cetirizine 10 mg PO DAILY 01/21/21 [History Last Taken Unknown] cholecalciferol (vitamin D3) 50 mcg PO DAILY 01/21/21 [History Last Taken Unknown] fluticasone propionate 1 spray INTRANASAL DAILY 01/21/21 [History Last Taken Unknown] docusate sodium 50 mg PO DAILY 02/11/21 [History Last Taken Unknown] escitalopram oxalate 5 mg PO DAILY 02/11/21 [History Last Taken Unknown] Allergy/AdvReac Type Severity Reaction Status Date / Time ciprofloxacin Allergy Unknown Verified 02/11/21 14:10 hydrochlorothiazide Allergy Unknown Verified 02/11/21 14:10 pentazocine [From Talwin] Allergy Unknown Verified 02/11/21 14:10 acetaminophen [From Percocet] AdvReac PT UNSURE Verified 02/12/21 17:55 OF REACTION carvedilol AdvReac Rash Verified 02/11/21 14:10 oxycodone [From Percocet] AdvReac PT UNSURE Verified 02/11/21 14:10 OF REACTION Family History Other Cancer Surgical History H/O shoulder surgery History of cholecystectomy Social History Smoking Status: Never smoker ROS ROS ED Constitutional Constitutional ED: Denies chills or fever(s) Eyes Eyes: Denies change in vision ENT ENT ED: Denies epistaxis or rhinorrhea Cardiovascular Cardiovascular: Denies chest pain or palpitations Respiratory/Chest Respiratory/Chest: Denies cough, dyspnea or dyspnea on exertion Gastrointestinal Gastrointestinal: Reports abdominal pain and constipation; Denies diarrhea, melena or nausea Genitourinary Genitourinary ED: Denies dysuria, hematuria or urinary frequency Musculoskeletal Musculoskeletal: Denies neck pain Integumentary Denies rash Neurologic Neurologic: Denies dizziness, headache(s) or weakness EXAM Physical Exam Const Vital Signs: 02/11/21 14:10 Temperature 98.2 F Temperature Source Temporal Pulse Rate 65 Respiratory Rate 14 Blood Pressure 161/78 H Blood Pressure Mean 105 Pulse Ox 99 Oxygen Delivery Method Room Air Positive well nourished and well developed General Appearance ED: well developed and NAD HEENT Reports normocephalic, head/scalp atraumatic and moist mucous membranes Eyes PERRL and EOMs intact bilaterally Neck no lymphadenopathy and supple General: Negative for tenderness Chest Wall inspection of chest normal Resp normal respiratory effort and clear to auscultation bilaterally Auscultation: Negative for rales, rhonchi or wheezes Cardio regular rate, regular rhythm and no murmurs GI normal to inspection, nondistended, normoactive bowel sounds GI Narrative: Diffuse tenderness to deep palpation. No one spot seem to hurt worse than another. Palpation: soft; Negative for guarding or rebound tenderness present Back/Spine no CVA tenderness Extremity normal to inspection General Extremety ED: Negative for edema or tenderness General Extremity: Negative for edema Neuro oriented x3, CN's II-XII intact bilaterally and no sensory deficits noted Sensorium / Orientation: alert Motor Exam: strength 5/5 throughout Psych mental status grossly normal Skin no rashes or lesions noted MDM MDM MDM Narrative Medical decision making narrative: Patient presents to the emergency department for confusion. The family does not feel like she is safe at their house anymore. She is supposed to be placed in a longterm but not until Saturday. Their supportive employment case manager told them to come to the emergency department. Patient has been confused. This does come and go. On arrival to the ED she is alert and oriented. She was recently discharged from the hospital for stroke work-up. Will check basic lab work and CT scan of the head here in the emergency department. CT scan of the head did show the chronic changes but no acute bleed. Her lab work-up did not show any significant acute abnormality. She does have a high white blood cell count. She is anemic. No significant electrolyte disturbance. Liver enzymes are not high. She does not have a high BUN. Glucose within normal limits. Urine does not show any signs of infection. Given the inability of her family to care for her at home. Will bring into the hospital for placement. Lab Data Labs: Laboratory Results - last 24 hr 02/11/21 02/11/21 02/11/21 14:30 14:35 14:35 WBC 7.2 RBC 3.97 L Hgb 12.1 Hct 36.0 L MCV 90.7 MCH 30.5 MCHC 33.6 RDW Std Deviation 42.4 RDW Coeff of Linda 12.7 Plt Count 361 MPV 10.2 Immature Gran % (Auto) 0.400 Neut % (Auto) 53.1 Lymph % (Auto) 30.4 [place] % (Auto) 7.1 Eos % (Auto) 8.2 H Baso % (Auto) 0.8 Absolute Neuts (auto) 3.8 Absolute Lymphs (auto) 2.18 Nucleated RBC % 0 Sodium 139 Potassium 3.8 Chloride 106 Carbon Dioxide 26.0 Anion Gap 7 BUN 15 Creatinine 0.70 Estim Creat Clear Calc 49.00 Est GFR (MDRD) Af Amer 105 Est GFR (MDRD) Non-Af 87 BUN/Creatinine Ratio 21.3 H Glucose 86 Calcium 9.3 Total Bilirubin 0.20 AST 13 L ALT 8 L Alkaline Phosphatase 109 Total Protein 6.8 Albumin 3.1 L Globulin 3.7 Albumin/Globulin Ratio 0.8 L Urine Color Yellow Urine Clarity Clear Urine pH 6.5 Ur Specific [place] 1.010 Urine Protein 30 H Urine Glucose (UA) Normal Urine Ketones Negative Urine Occult Blood Negative Urine Nitrite Negative Urine Bilirubin Negative Urine Urobilinogen Normal Ur Leukocyte Esterase Negative Urine RBC 0 SEEN Urine WBC 0 SEEN Ur Squamous Epith Cells 0 SEEN Urine Bacteria 0 SEEN Urine Mucus 0 SEEN Radiography Diagnostic Testing: Radiology Impression Brain CT 02/11/21 14:22 IMPRESSION: 1. No acute intracranial hemorrhage or mass effect. 2. Right SUPERVISOR HEADING territory infarction as seen on prior CT/MRI. 3. Central parenchymal volume loss. White matter changes that are nonspecific but most commonly associated with chronic small vessel ischemic disease. Electronically Signed: Caleb Olvera MD (Brooks) at 14:55 EDT , Service support , Discharge Plan Disposition Disposition: Acute Care Hospital [facility] Discharge Date/Time: 02/11/21 16:07
[2021-02-11 14:35] LABS: Color, Urine Yellow (Yellow); Glucose, Dipstick Normal (Normal); Ketone-Dipstick Negative (Negative); Leukocyte Esterase-Dipstick Negative /ul (Negative); Nitrite-Dipstick Negative (Negative); Occult Blood-Urine Negative /ul (Negative); Protein-Dipstick 30 mg/dl (Negative); Urine Bilirubin Dipstick Negative (Negative); Urine Clarity Clear (Clear); Urine Urobilinogen Normal (Normal); Urine pH 6.5 (5.0 - 8.0)
[2021-02-11 14:38] LABS: Absolute Lymphocyte Count 2.18 X10^3/uL (0.83-4.51); Absolute Neutrophil Count 3.8 X10^3/uL (2.0-7.7); Basophil# 0.06 X10^3/uL; Basophil% 0.8 % (0-1); Eosinophil# 0.59 X10^3/uL; Eosinophils% 8.2 % (0-5); Hemoglobin 12.1 g/dL (12.0-15.0); Lymphocyte # 2.18 X10^3/ul (0.83-4.51); Lymphocyte % 30.4 % (19-41); Mean Corp Hgb Conc 33.6 g/dL (32-36); Mean Corpuscular Hgb 30.5 pg (27.0-32.0); Mean Corpuscular Volume 90.7 fL (81-99); Mean Platelet Vol. 10.2 fl (6.2-12.0); Monocyte# 0.51 X10^3/uL; Monocyte% 7.1 % (0-10); NRBC Flagged by Analyzer 0 % (0-5); Neutrophil # 3.79 X10^3/uL (2.7-7.7); Neutrophil % 53.1 % (47-70); Platelet Count 361 K/mm3 (150-450); RBC Distribution Width CV 12.7 % (11.6-14.6); RBC Distribution Width SD 42.4 fl (35.1-43.9); Red Blood Count 3.97 M/mm3 (4.2-5.4); White Blood Count 7.2 K/mm3 (4.4-11.0)
[2021-02-11 14:54] LABS: ALB/GLOB Ratio 0.8 RATIO (0.9-2.4); AST(SGOT) 13 U/L (15-37); Alanine Aminotransfer ALT/SGPT 8 U/L (13-56); Albumin, Serum 3.1 g/dL (3.2-5.0); Alkaline Phosphatase 109 U/L (45-117); Anion Gap 7 (5-15); BUN 15 mg/dL (7-18); BUN/Creat Ratio 21.3 RATIO (10-20); Calcium,Total 9.3 mg/dL (8.5-10.1); Chloride 106 mmol/L (98-107); EST Glomerular Filtration Rate 87 mL/min (>60); Est Glom Filt Rate - Afr Amer 105 mL/min (>60); Globulin 3.7 g/dL (2.2-4.2); Glucose 86 mg/dL (74-106); Potassium 3.8 mmol/L (3.5-5.1); Protein, Total 6.8 g/dL (6.4-8.2); Sodium Level 139 mmol/L (136-145)
--- NOTE | 2021-02-11 15:23 | RAD_ITS ---
STUDY: X-RAY - ABDOMEN/PELVIS REASON FOR EXAM: Female, 70 years old. Constipation TECHNIQUE: Single AP view of the abdomen / pelvis. COMPARISON: None. FINDINGS: Excluded lung bases. No dilated loops of air-filled small bowel. Moderate fecal residue of the proximal colon. There is no demonstrated free abdominal air. The visualized liver, spleen and kidneys are grossly normal in size and morphology. Normal soft tissue structures. There are diffuse degenerative changes of the visualized lumbar spine. RAD/Abdomen Single View IMPRESSION: Moderate fecal retention in the proximal colon. Nonobstructive bowel gas pattern. Electronically Signed: Caleb Olvera MD (Brooks) at 15:43 EDT , Service support ,
[2021-02-11 15:48] VITALS: BP 158/80; PULSE 72; RESP 18; TEMP 35.9; O2SAT 100
--- NOTE | 2021-02-11 16:11 | HP.PCM.HOS_ITS ---
HPI - General General Date of Admission: 02/11/21 Date of Service: 02/11/21 Chief Complaint: falls. confusion HPI Narrative RICKEY JAQUEZ, is a 70 F who presents falls, increasing inability to care for self increasing confusion. Patient is confused so unable to obtain history from her so history obtained to the emergency room physician as well as the patient's son is at bedside. Patient was admitted back in January and was diagnosed with a right posterior cerebral infarct. Patient was discharged home on the and just been confused during this time. Sleeping very little as explained by the patient's son by 6 hours over the past 3 weeks. Patient is also complaining of abdominal pain and recently went to the [place] and had a large volume of stool removed described as 2 foot pauses and a baby's worth of stool. Patient complains abdominal pain pain all over and asking if she is dying. [facility]LY [facility] Medical History Asthma Chronic pain Depression Diabetes mellitus Diabetes mellitus GERD (gastroesophageal reflux disease) Kidney stones Migraines Non-smoker Rheumatoid arthritis Seizures Stroke/cerebrovascular accident TIA (transient ischemic attack) Home Medications omeprazole 20 mg PO BID 12/19/13 [History Last Taken 07/22/20] topiramate 50 mg PO BID 12/19/13 [History Last Taken 07/22/20] albuterol sulfate 2.5 mg INHALATION Q4H PRN PRN 05/09/14 [History Last Taken Unknown] lamotrigine 300 mg PO BID 07/22/20 [History Last Taken Unknown] aspirin 81 mg PO DAILY@0800 #30 tab.chew 11/30/20 [Rx Last Taken Unknown] carvedilol 12.5 mg PO BID #60 tablet 11/30/20 [Rx Last Taken Unknown] clopidogrel 75 mg PO DAILY #30 tablet 11/30/20 [Rx Last Taken Unknown] lisinopril 10 mg PO BID #0 11/30/20 [Rx Last Taken Unknown] phenobarbital 32.4 mg PO TID #0 11/30/20 [Rx Last Taken 07/22/20] atorvastatin 80 mg PO QHS #30 tablet 12/02/20 [Rx Last Taken Unknown] Diclo Gel 2 g TOPICAL BID 01/21/21 [History Last Taken Unknown] Novolin N Flexpen 40 unit SUBCUT QHS 01/21/21 [History Last Taken Unknown] Novolin N Flexpen 60 unit SUBCUT BREAKFAST 01/21/21 [History Last Taken Unknown] Novolin R Flexpen 20 unit SUBCUT BID 01/21/21 [History Last Taken Unknown] budesonide-formoterol 2 puff INHALATION BID 01/21/21 [History Last Taken Unknown] cetirizine 10 mg PO DAILY 01/21/21 [History Last Taken Unknown] cholecalciferol (vitamin D3) 50 mcg PO DAILY 01/21/21 [History Last Taken Unknown] fluticasone propionate 1 spray INTRANASAL DAILY 01/21/21 [History Last Taken Unknown] docusate sodium 50 mg PO DAILY 02/11/21 [History Last Taken Unknown] escitalopram oxalate 5 mg PO DAILY 02/11/21 [History Last Taken Unknown] Allergy/AdvReac Type Severity Reaction Status Date / Time ciprofloxacin Allergy Unknown Verified 02/11/21 14:10 hydrochlorothiazide Allergy Unknown Verified 02/11/21 14:10 pentazocine [From Talwin] Allergy Unknown Verified 02/11/21 14:10 acetaminophen [From Percocet] AdvReac PT UNSURE Verified 02/11/21 14:10 OF REACTION carvedilol AdvReac Rash Verified 02/11/21 14:10 oxycodone [From Percocet] AdvReac PT UNSURE Verified 02/11/21 14:10 OF REACTION Family History Other Cancer unable to obtain (Confusion) Surgical History H/O shoulder surgery History of cholecystectomy Social History Smoking Status: Never smoker ROS ROS Narrative Patient complains of abdominal pain and pain all over but does not further elaborate on those symptoms. Patient still very agitated and confused and unable to gather adequate review of systems Review of Systems ROS Unobtainable: due to mental status Vital Signs Vital Signs Vital Signs: 02/11/21 14:10 02/11/21 15:48 Temperature 36.8 C 35.9 C L Temperature Source Temporal Temporal Pulse Rate 65 72 Respiratory Rate 14 18 Blood Pressure 161/78 H 158/80 H Blood Pressure Mean 105 106 Pulse Ox 99 100 Oxygen Delivery Method Room Air Room Air Weight Weight: 108.862 kg Body Mass Index (BMI) 38.7 Physical Exam Const Constitutional Narrative: Oriented to place and self. Obese. Dozes off and has witnessed apneic episodes HEENT normocephalic Neck no lymphadenopathy Resp normal respiratory effort Cardio regular rate, regular rhythm, S1 normal heart sound and S2 normal heart sound GI normal to inspection, nondistended, normoactive bowel sounds, non-tender and non-distended Extremity normal to inspection Neuro Neuro Narrative: No clonus. DTRs intact. Psych Mood & Affect: anxious Results Lab / Micro Data Attestation: I reviewed the patient's lab results. Result Diagrams: 02/11/21 14:35 02/11/21 14:35 Labs: Laboratory Results - last 24 hr 02/11/21 02/11/21 02/11/21 14:30 14:35 14:35 WBC 7.2 RBC 3.97 L Hgb 12.1 Hct 36.0 L MCV 90.7 MCH 30.5 MCHC 33.6 RDW Std Deviation 42.4 RDW Coeff of Linda 12.7 Plt Count 361 MPV 10.2 Immature Gran % (Auto) 0.400 Neut % (Auto) 53.1 Lymph % (Auto) 30.4 [place] % (Auto) 7.1 Eos % (Auto) 8.2 H Baso % (Auto) 0.8 Absolute Neuts (auto) 3.8 Absolute Lymphs (auto) 2.18 Nucleated RBC % 0 Sodium 139 Potassium 3.8 Chloride 106 Carbon Dioxide 26.0 Anion Gap 7 BUN 15 Creatinine 0.70 Estim Creat Clear Calc 49.00 Est GFR (MDRD) Af Amer 105 Est GFR (MDRD) Non-Af 87 BUN/Creatinine Ratio 21.3 H Glucose 86 Calcium 9.3 Total Bilirubin 0.20 AST 13 L ALT 8 L Alkaline Phosphatase 109 Total Protein 6.8 Albumin 3.1 L Globulin 3.7 Albumin/Globulin Ratio 0.8 L Urine Color Yellow Urine Clarity Clear Urine pH 6.5 Ur Specific [place] 1.010 Urine Protein 30 H Urine Glucose (UA) Normal Urine Ketones Negative Urine Occult Blood Negative Urine Nitrite Negative Urine Bilirubin Negative Urine Urobilinogen Normal Ur Leukocyte Esterase Negative Urine RBC 0 SEEN Urine WBC 0 SEEN Ur Squamous Epith Cells 0 SEEN Urine Bacteria 0 SEEN Urine Mucus 0 SEEN Radiology Impression Brain CT 02/11/21 14:22 IMPRESSION: 1. No acute intracranial hemorrhage or mass effect. 2. Right PICTURES EDITOR territory infarction as seen on prior CT/MRI. 3. Central parenchymal volume loss. White matter changes that are nonspecific but most commonly associated with chronic small vessel ischemic disease. Electronically Signed: Caleb Olvera MD ([place]) at 14:55 EDT , Service support , KUB X-Ray 02/11/21 15:23 IMPRESSION: Moderate fecal retention in the proximal colon. Nonobstructive bowel gas pattern. Electronically Signed: Caleb Olvera MD (Brooks) at 15:43 EDT , Service support , Assessment & Plan Assessment/Plan (1) Confusion: (2) Constipation: QUALIFIERS: Constipation type: unspecified constipation type Qualified Code(s): K59.00 - Constipation, unspecified (3) Failure to thrive: QUALIFIERS: Failure to thrive age range: in adult Qualified Code(s): R62.7 - Adult failure to thrive PLAN: 1. Encephalopathy * Metabolic * Likely due to possible underlying dementia, patient's recent stroke but also insomnia * Avoid potentiating medications * Encourage sleep as able. 2. Constipation * [facility] still shows a lot of proximal stool * She is claiming abdominal pain * Will give her dose of MiraLAX * If that does not work then we can always consider adding magnesium citrate 3. Failure to thrive * Patient is too confused to adequately be cared for at this time and is high risk for falls * Patient was to be admitted to a senior living this coming Saturday but the family does not feel they can adequately care for her at home at this time. T he patient remain here until she can be safe discharge to a senior living which will hopefully be on the . * PT OT evaluate and treat * Case management to further assist and verify if the facility at [place] can accept her on the 6 4. recent posterior circulation stroke * Continue with aspirin, clopidogrel and high intensity statin 5. Diabetes mellitus type 2 * Continue with scheduled and as well is her and sliding scale insulin 6. VTE prophylaxis * Not indicated given current observation status 7. CODE STATUS: Addressed with the patient's son who is her power of contracts attorney. Patient is DNR Comfort Care arrest no intubation.
--- NOTE | 2021-02-11 16:31 | NURSING ---
has had one glass of orange already, pt able to drink so is receiving a second glass of orange juice.
[2021-02-11] MEDS: Dextrose 50%-Water 25 GM/50 ML DISP.SYRIN IV (16:36)
--- NOTE | 2021-02-11 16:36 | NURSING ---
1 amp d50 given.
--- NOTE | 2021-02-11 16:37 | NURSING ---
lab at bedside to obtain stat glucose
[2021-02-11 16:44] VITALS: BMI 41.4
--- NOTE | 2021-02-11 16:51 | NURSING ---
pt drowsy/lethargic and confused at times.
[2021-02-11 16:55] LABS: Bedside Glucose 168 mg/dL (70-110)
[2021-02-11 16:56] LABS: Glucose 184 mg/dL (74-106)
[2021-02-11 17:33] VITALS: BP 169/79; PULSE 79; RESP 18; TEMP 36.4; O2SAT 97
[2021-02-11] MEDS: Polyethylene Glycol 3350 17 GM PACKET PO (18:11)
[2021-02-11 19:25] VITALS: O2SAT 99
[2021-02-11 21:44] VITALS: BP 157/80; PULSE 94; RESP 18; TEMP 36.4; O2SAT 99
[2021-02-11 21:55] LABS: Bedside Glucose 183 mg/dL (70-110)
[2021-02-11] MEDS: Topiramate 50 MG Tablet PO (21:56)
[2021-02-11] MEDS: Atorvastatin Calcium 80 MG Tablet PO (21:56)
[2021-02-11] MEDS: Pantoprazole Sodium 20 MG Tablet PO (21:56)
[2021-02-11] MEDS: lamoTRIgine 150 MG Tablet 300 MG PO (21:56)
[2021-02-11] MEDS: Lisinopril 10 MG Tablet PO (21:56)
[2021-02-11] MEDS: Carvedilol 12.5 MG Tablet PO (21:56)
[2021-02-11] MEDS: Phenobarbital 32.4 MG Tablet PO (21:56)
[2021-02-12] VITALS (7 sets, daily range): BP systolic 137–158; BP diastolic 62–72; PULSE 70–90; RESP 18–24; TEMP 36.4–36.6; O2SAT 97–99
[2021-02-12] MEDS: MELATONIN 3 MG TABLET PO ×2 (00:28→22:06)
[2021-02-12] MEDS: Acetaminophen 325 MG Tablet 650 MG PO ×3 (00:28→22:07)
--- NOTE | 2021-02-12 01:48 | EKG12_ITS ---
Test Reason : CP Blood Pressure : / mmHG Vent. Rate : 079 BPM Atrial Rate : 079 BPM P-R Int : 220 ms QRS Dur : 120 ms QT Int : 448 ms P-R-T Axes : 050 -54 079 degrees QTc Int : 513 ms Sinus rhythm with 1st degree A-V block Left axis deviation Septal infarct , age undetermined Abnormal ECG When compared with ECG of 21-JAN-2021 21:19, Septal infarct is now Present Confirmed by RAGINI ALEJANDRO, DEANDRE ([id number]), staff editor CELINA RODRIGUES ([id number]) on 02/21/2021 7:53:30 AM Referred By: KIT Confirmed By:DEANDRE EID MD
--- NOTE | 2021-02-12 02:06 | NURSING ---
0130 pt c/o CP under left breast/ axillae. pt states it is 10/10 burning/aching. vitals obtained and stable. EKG obtained, Dr Tran notified. No stemi. pt states also having ABD pain, states has been constipated, requested enema to help with BM
[2021-02-12] MEDS: Fleet Enema 1 ML RC (02:13)
--- NOTE | 2021-02-12 02:22 | NURSING ---
fleet enema given at this time. pt tolerated well.
[2021-02-12 02:35] LABS: Troponin-I HS 7.9 pg/mL (3.0-53.7)
--- NOTE | 2021-02-12 04:44 | NURSING ---
no success with fleet enema. Dr Tran made aware and stated she wants to wait to see if results occur by AM to try something else
[2021-02-12] MEDS: Phenobarbital 32.4 MG Tablet PO ×3 (06:24→22:06)
[2021-02-12] MEDS: Insulin Lispro 100 UNIT/ML INSULN.PEN SC ×2 (06:25→12:05)
[2021-02-12 06:46] LABS: Bedside Glucose 201 mg/dL (70-110)
[2021-02-12] MEDS: Albuterol 2.5 MG/3 ML VIAL.NEB. INHALATION (07:09)
[2021-02-12] MEDS: Budesonide Respules 0.5 MG/2 ML AMPUL.NEB. INHALATION (07:09)
[2021-02-12] MEDS: Carvedilol 12.5 MG Tablet PO ×2 (09:34→22:01)
[2021-02-12] MEDS: Loratadine 10 MG Tablet PO (09:34)
[2021-02-12] MEDS: Aspirin 81 MG TAB.CHEW PO (09:34)
[2021-02-12] MEDS: Docusate Sodium 100 MG Capsule PO (09:34)
[2021-02-12] MEDS: lamoTRIgine 150 MG Tablet 300 MG PO ×2 (09:35→22:01)
[2021-02-12] MEDS: Fluticasone 0.05% 1 SPRAY NASAL.SRY NASAL (09:35)
[2021-02-12] MEDS: Escitalopram Oxalate 10 MG Tablet 5 MG PO (09:36)
[2021-02-12] MEDS: Topiramate 50 MG Tablet PO ×2 (09:37→22:02)
[2021-02-12] MEDS: Pantoprazole Sodium 20 MG Tablet PO ×2 (09:37→22:02)
[2021-02-12] MEDS: Clopidogrel Bisulfate 75 MG Tablet PO (09:37)
[2021-02-12] MEDS: Cholecalciferol (VIT D3) 25 MCG TABLET (1,000 UNITS) 50 MCG PO (09:37)
[2021-02-12] MEDS: Lisinopril 10 MG Tablet PO ×2 (09:37→22:03)
[2021-02-12] MEDS: Magnesium Citrate 300 ML PO (10:26)
--- NOTE | 2021-02-12 11:25 | PCM.PN.HOSP ---
Subjective Subjective Still anxious. Still complaining abdominal pain and constipation. States that her family is scared of her. Objective Data Objective Data Vital Signs: Vital Signs Temp Pulse Resp BP Pulse Ox 36.6 C 73 18 158/72 H 99 02/12/21 10:13 02/12/21 10:13 02/12/21 10:13 02/12/21 10:13 02/12/21 10:13 Oxygen Delivery Method Room Air Weight: 109.458 kg Body Mass Index (BMI) 41.4 Intake & Output: Intake and Output for Last 24 Hours 02/10/21 02/11/21 02/12/21 23:59 23:59 23:59 Intake Total 800 / 800 400 / 400 Output Total 1000 / 1000 600 / 600 Balance -200 / -200 -200 / -200 Lab / Micro Data Result Diagrams: 02/11/21 14:35 02/11/21 16:41 Labs: Laboratory Results - last 24 hr 02/11/21 02/11/21 02/11/21 14:30 14:35 14:35 WBC 7.2 RBC 3.97 L Hgb 12.1 Hct 36.0 L MCV 90.7 MCH 30.5 MCHC 33.6 RDW Std Deviation 42.4 RDW Coeff of Linda 12.7 Plt Count 361 MPV 10.2 Immature Gran % (Auto) 0.400 Neut % (Auto) 53.1 Lymph % (Auto) 30.4 [place] % (Auto) 7.1 Eos % (Auto) 8.2 H Baso % (Auto) 0.8 Absolute Neuts (auto) 3.8 Absolute Lymphs (auto) 2.18 Nucleated RBC % 0 Sodium 139 Potassium 3.8 Chloride 106 Carbon Dioxide 26.0 Anion Gap 7 BUN 15 Creatinine 0.70 Estim Creat Clear Calc 49.00 Est GFR (MDRD) Af Amer 105 Est GFR (MDRD) Non-Af 87 BUN/Creatinine Ratio 21.3 H Glucose 86 Calcium 9.3 Total Bilirubin 0.20 AST 13 L ALT 8 L Alkaline Phosphatase 109 Troponin I High Sens Total Protein 6.8 Albumin 3.1 L Globulin 3.7 Albumin/Globulin Ratio 0.8 L Urine Color Yellow Urine Clarity Clear Urine pH 6.5 Ur Specific [place] 1.010 Urine Protein 30 H Urine Glucose (UA) Normal Urine Ketones Negative Urine Occult Blood Negative Urine Nitrite Negative Urine Bilirubin Negative Urine Urobilinogen Normal Ur Leukocyte Esterase Negative Urine RBC 0 SEEN Urine WBC 0 SEEN Ur Squamous Epith Cells 0 SEEN Urine Bacteria 0 SEEN Urine Mucus 0 SEEN POC Glucose 02/11/21 02/11/21 02/11/21 16:41 16:48 21:47 WBC RBC Hgb Hct MCV MCH MCHC RDW Std Deviation RDW Coeff of Linda Plt Count MPV Immature Gran % (Auto) Neut % (Auto) Lymph % (Auto) [place] % (Auto) Eos % (Auto) Baso % (Auto) Absolute Neuts (auto) Absolute Lymphs (auto) Nucleated RBC % Sodium Potassium Chloride Carbon Dioxide Anion Gap BUN Creatinine Estim Creat Clear Calc Est GFR (MDRD) Af Amer Est GFR (MDRD) Non-Af BUN/Creatinine Ratio Glucose 184 H Calcium Total Bilirubin AST ALT Alkaline Phosphatase Troponin I High Sens Total Protein Albumin Globulin Albumin/Globulin Ratio Urine Color Urine Clarity Urine pH Ur Specific [place] Urine Protein Urine Glucose (UA) Urine Ketones Urine Occult Blood Urine Nitrite Urine Bilirubin Urine Urobilinogen Ur Leukocyte Esterase Urine RBC Urine WBC Ur Squamous Epith Cells Urine Bacteria Urine Mucus POC Glucose 168 H 183 H 02/12/21 02/12/21 02:03 06:19 WBC RBC Hgb Hct MCV MCH MCHC RDW Std Deviation RDW Coeff of Linda Plt Count MPV Immature Gran % (Auto) Neut % (Auto) Lymph % (Auto) [place] % (Auto) Eos % (Auto) Baso % (Auto) Absolute Neuts (auto) Absolute Lymphs (auto) Nucleated RBC % Sodium Potassium Chloride Carbon Dioxide Anion Gap BUN Creatinine Estim Creat Clear Calc Est GFR (MDRD) Af Amer Est GFR (MDRD) Non-Af BUN/Creatinine Ratio Glucose Calcium Total Bilirubin AST ALT Alkaline Phosphatase Troponin I High Sens 7.9 Total Protein Albumin Globulin Albumin/Globulin Ratio Urine Color Urine Clarity Urine pH Ur Specific [place] Urine Protein Urine Glucose (UA) Urine Ketones Urine Occult Blood Urine Nitrite Urine Bilirubin Urine Urobilinogen Ur Leukocyte Esterase Urine RBC Urine WBC Ur Squamous Epith Cells Urine Bacteria Urine Mucus POC Glucose 201 H Radiography Diagnostic Testing: Radiology Impression Brain CT 02/11/21 14:22 IMPRESSION: 1. No acute intracranial hemorrhage or mass effect. 2. 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 3. Central parenchymal volume loss. White matter changes that are nonspecific but most commonly associated with chronic small vessel ischemic disease. Electronically Signed: Caleb Olvera MD ([place]) at 14:55 EDT , Service support , KUB X-Ray 02/11/21 15:23 IMPRESSION: Moderate fecal retention in the proximal colon. Nonobstructive bowel gas pattern. Electronically Signed: Caleb Olvera MD ([place]) at 15:43 EDT , Service support , Physical Exam Narrative Still anxious but awake sitting up in a chair not dozing off at this time. Const alert Resp normal respiratory effort, no use of accessory muscles and clear to auscultation bilaterally Cardio regular rate, regular rhythm, S1 normal heart sound and S2 normal heart sound GI normal to inspection, nondistended, normoactive bowel sounds, non-tender and non-distended Assessment & Plan Assessment/Plan (1) Confusion: (2) Constipation: (3) Failure to thrive: PLAN: 1. Encephalopathy Metabolic Likely due to possible underlying dementia, patient's recent stroke but also insomnia Avoid potentiating medications Encourage sleep as able. Patient still very agitated but appears to be calm her today. We will add a low-dose of quetiapine tonight. 2. Constipation Recently has had large volume stool removed at the [place] but x-ray still shows a lot of proximal stool She is claiming abdominal pain Will give her dose of MiraLAX If that does not work then we can always consider adding magnesium citrate 3. Failure to thrive Patient is too confused to adequately be cared for at this time and is high risk for falls Patient [place] this coming Saturday but the family does not feel they can adequately care for her at home at this time. The patient remain here until she can be safe discharge to a [place] which will hopefully be on the . PT OT evaluate and treat Case management to further assist and verify if the facility at [place] can accept her on the 6 4. recent posterior circulation stroke Continue with aspirin, clopidogrel and high intensity statin 5. Diabetes mellitus type 2 Continue with scheduled and as well is her and sliding scale insulin 6. VTE prophylaxis Not indicated given current observation status 7. CODE STATUS: Addressed with the patient's son who is her power of commercial litigation attorney. Patient is DNR Comfort Care arrest no intubation. Charges/Coding Visit Charges Inpatient E&M: 15166 Subs Hosp L2
[2021-02-12 12:11] LABS: Bedside Glucose 237 mg/dL (70-110)
[2021-02-12 16:40] LABS: Bedside Glucose 203 mg/dL (70-110)
[2021-02-12] MEDS: Atorvastatin Calcium 80 MG Tablet PO (22:02)
[2021-02-12] MEDS: QUEtiapine 25 MG Tablet PO (22:06)
[2021-02-12 22:26] LABS: Bedside Glucose 228 mg/dL (70-110)
[2021-02-13] VITALS (10 sets, daily range): BP systolic 129–161; BP diastolic 58–84; PULSE 68–82; RESP 18–22; TEMP 36.4–37.2; O2SAT 96–97
[2021-02-13] MEDS: hydrALAZINE 20 MG/ML Vial 10 MG IV (03:19)
[2021-02-13] MEDS: 0.9% Saline Lock 10 ML Syringe IV ×3 (03:19→20:54)
[2021-02-13] MEDS: Phenobarbital 32.4 MG Tablet PO ×3 (05:20→20:57)
[2021-02-13] MEDS: Nystatin Powder 15gm Bottle 1 APPLIC TOPICAL ×3 (05:20→20:58)
[2021-02-13] MEDS: Acetaminophen 325 MG Tablet 650 MG PO ×2 (05:23→20:55)
[2021-02-13] MEDS: Insulin Lispro 100 UNIT/ML INSULN.PEN SC ×3 (06:39→17:19)
[2021-02-13 06:45] LABS: Bedside Glucose 223 mg/dL (70-110)
[2021-02-13] MEDS: Albuterol 2.5 MG/3 ML VIAL.NEB. INHALATION ×3 (07:09→19:32)
[2021-02-13] MEDS: Budesonide Respules 0.5 MG/2 ML AMPUL.NEB. INHALATION ×2 (07:09→19:33)
[2021-02-13 07:55] LABS: Bedside Glucose 33 mg/dL (70-110)
[2021-02-13 07:55] LABS: Bedside Glucose 32 mg/dL (70-110)
[2021-02-13] MEDS: Docusate Sodium 100 MG Capsule PO (09:15)
[2021-02-13] MEDS: Loratadine 10 MG Tablet PO (09:15)
[2021-02-13] MEDS: Aspirin 81 MG TAB.CHEW PO (09:15)
[2021-02-13] MEDS: lamoTRIgine 150 MG Tablet 300 MG PO ×2 (09:15→20:58)
[2021-02-13] MEDS: Cholecalciferol (VIT D3) 25 MCG TABLET (1,000 UNITS) 50 MCG PO (09:15)
[2021-02-13] MEDS: Pantoprazole Sodium 20 MG Tablet PO ×2 (09:16→20:57)
[2021-02-13] MEDS: Fluticasone 0.05% 1 SPRAY NASAL.SRY NASAL (09:16)
[2021-02-13] MEDS: Clopidogrel Bisulfate 75 MG Tablet PO (09:16)
[2021-02-13] MEDS: Topiramate 50 MG Tablet PO ×2 (09:16→20:56)
[2021-02-13] MEDS: Lisinopril 10 MG Tablet PO ×2 (09:16→20:56)
[2021-02-13] MEDS: Carvedilol 12.5 MG Tablet PO ×2 (09:16→20:55)
[2021-02-13] MEDS: QUEtiapine 25 MG Tablet 50 MG PO (11:27)
[2021-02-13 11:46] LABS: Bedside Glucose 361 mg/dL (70-110)
--- NOTE | 2021-02-13 12:12 | CHAPLAIN ---
Type of Pastoral Visit _x__ Initial Visit ___ Follow-up Visit ___ On-call Visit ___ General Patient Visit ___ Spiritual Assessment ___ Family Conference ___ Bereavement ___ Rapid Response ___ Code Blue ___ Other (describe below) Pastoral Care Referral From _x__ Patient ___ Family ___ Nurse ___ Physician ___ Transformation Coach ___ Livestock Farm Workers ___ Other (describe below) Sacrament/Intervention _x__ Active listening ___ Anointing ___ Buddhism ___ Bereavement ___ Communion _x__ Ya exploration ___ _x__ Life review _x__ Prayer ___ Reconciliation ___ Sacrament of Sick _x__ Supportive presence ___ Wedding ___ Other (describe below) Pastoral Comments patient has been seen in other admissions; pt concerns remain judaism in nature in that she declares that God is not listening to me, even after I have done so much good in my life; pt struggles with thoughts of God has left me or that I have forsaken God; presence and listening given with calm words; assurance of God's care for her given; prayer welcomed
[2021-02-13] MEDS: Ondansetron 4 MG/2 ML Vial IV (12:55)
--- NOTE | 2021-02-13 13:01 | PCM.HOSP.N ---
Hospitalist Note Follow up debility S: Did have bowel movements yesterday. States that her abdomen is feeling better. Still very overwhelmed and began sobbing later. O: Vitals 96, 135.70, 77, 18, 96% RA Anxious, afebrile, up in chair. HRRR S1S2. LCTAB. Abd obese, soft NT ND nml BS. Ext no edema. A/P 1. Encephalopathy Metabolic Likely due to possible underlying dementia, patient's recent stroke but also insomnia Avoid potentiating medications Encourage sleep as able. Patient still very agitated but appears to be calm her today. We will add a low-dose of quetiapine tonight. Will need outpt geripscyh eval. 2. Constipation Recently has had large volume stool removed at the [facility] but x-ray still shows a lot of proximal stool She is claiming abdominal pain Will give her dose of MiraLAX If that does not work then we can always consider adding magnesium citrate 3. Failure to thrive Patient is too confused to adequately be cared for at this time and is high risk for falls Patient was to be admitted to a half-way this coming Saturday but the family does not feel they can adequately care for her at home at this time. The patient remain here until she can be safe discharge to a half-way which will hopefully be on the 6. PT OT evaluate and treat Case management to further assist and verify if the facility at [place] can accept her on the 6 4. recent posterior circulation stroke Continue with aspirin, clopidogrel and high intensity statin 5. Diabetes mellitus type 2 NPH held given transient hypoglycemia Restart NPH at 30 BID (will give 1x dose of 20 this afternoon) 6. VTE prophylaxis Not indicated given current observation status Visit Charges Inpatient E&M: 99252 Subs Hosp L2
[2021-02-13] MEDS: Tamsulosin HCl 0.4 MG Capsule PO (15:39)
[2021-02-13 17:16] LABS: Bedside Glucose 268 mg/dL (70-110)
[2021-02-13] MEDS: Insulin NPH Human 100 UNITS/ML PEN 30 UNITS SC (17:18)
[2021-02-13] MEDS: QUEtiapine 25 MG Tablet PO (20:56)
[2021-02-13] MEDS: MELATONIN 3 MG TABLET PO (20:57)
[2021-02-13] MEDS: Atorvastatin Calcium 80 MG Tablet PO (20:57)
[2021-02-13 21:16] LABS: Bedside Glucose 241 mg/dL (70-110)
--- NOTE | 2021-02-14 01:27 | NURSING ---
Bladder scan showed >999. Patient has been straight cathed two times already this stay. There is an order to leave Jacobs in after third cath. However, patient is refusing to be straight cathed or to have a Jacobs placed. Patient was educated on reasons why to have Jacobs placed. She is still refusing.
[2021-02-14 02:16] VITALS: BP 147/60; PULSE 72; RESP 18; TEMP 36.7; O2SAT 96
[2021-02-14] MEDS: Nystatin Powder 15gm Bottle 1 APPLIC TOPICAL (05:16)
[2021-02-14] MEDS: Phenobarbital 32.4 MG Tablet PO ×2 (05:16→14:23)
[2021-02-14] MEDS: Budesonide Respules 0.5 MG/2 ML AMPUL.NEB. INHALATION (07:02)
[2021-02-14 07:03] VITALS: PULSE 75; RESP 18; O2SAT 98
[2021-02-14] MEDS: Albuterol 2.5 MG/3 ML VIAL.NEB. INHALATION (07:03)
[2021-02-14 08:56] VITALS: BP 168/92; PULSE 68; RESP 18; TEMP 36.4; O2SAT 99
[2021-02-14] MEDS: Aspirin 81 MG TAB.CHEW PO (08:59)
[2021-02-14] MEDS: Carvedilol 12.5 MG Tablet PO (08:59)
[2021-02-14] MEDS: Insulin NPH Human 100 UNITS/ML PEN 35 UNITS SC (09:00)
[2021-02-14] MEDS: LORazepam 2 MG/ML Syringe 1 MG IV (09:09)
[2021-02-14] MEDS: 0.9% Saline Lock 10 ML Syringe IV (09:09)
[2021-02-14] MEDS: Lidocaine Jelly 2% 20 ML Syringe (URO-JET) 20 APPLIC TOPICAL (09:18)
[2021-02-14 10:01] LABS: Bedside Glucose 201 mg/dL (70-110)
--- NOTE | 2021-02-14 11:02 | CASEMGMT ---
Social Work Note BRANDI reviewed chart, pt was supposed to admit to SNF in [place] on 02/14/2021. Per Chart, pt with confusion. BRANDI placed a call to pt's son Miguel Ángel. Miguel Ángel confirms pt was living with him and his Denise. Miguel Ángel Walker was arranging for pt to admit to [facility] in [place] today. Miguel Ángel states he and his was assisting pt with all ADLs at home. Miguel Ángel montalvo pt was admitted to [facility] about two weeks ago and since pt has been back home, no assistance (salas, RN, BRANDI) has been to their home. BRANDI asked Miguel Ángel about HCPOA. [facility]ngel states [facility] was primary [facility] and his sister Valentina was secondary. Miguel Ángel Walker takes care of pt primarily as he works and states any further questions should be directed to her. Miguel Ángel Walker [facility] to [facility] about [facility]. Denise Tejeda number is [phone]. BRANDI placed a call to [facility] and left message regarding pt's admission to SNF. Pt with psych history and [place] see a [place] through the [place]. BRANDI left message for [facility] regarding pt's psych history as well as pt is in observation status and will need a PAS/RR. From previous conversation with pt, pt does have seizure disorder and this was diagnosed after that pt was 22. BRANDI waiting for call back from [facility] with [facility]. BRANDI placed a call to Hiral Casper at [facility]. Hiral states pt was accepted to [facility], they were just waiting for confirmation from [place] that [place] would [place] the SNF. Hiral states that she was working with Bin Guzman through the [facility]. BRANDI informed Hiral that pt does have psych hx, this worker to gather more information regarding history as pt may trip the screen. Hiral asked for clinicals to be faxed to her. BRANDI faxed clinicals to [facility]. Plan: SNF pending [facility]. [place] waiting [place] call back from [place]. Melida Leo PLASTIC WELDING MACHINE OPERATOR, DENTAL INSURANCE COORDINATOR
--- NOTE | 2021-02-14 12:34 | PN.HOSP_ITS ---
Subjective Subjective Still with urinary retention. Refuses to have catheter placed because of something that happened to her as a child--she does not elaborate. Objective Data Objective Data Vital Signs: Vital Signs Temp Pulse Resp BP Pulse Ox 36.4 C L 68 18 168/92 H 99 02/14/21 08:56 02/14/21 08:56 02/14/21 08:56 02/14/21 08:56 02/14/21 08:56 Oxygen Delivery Method Room Air Weight: 109.458 kg Body Mass Index (BMI) 41.4 Intake & Output: Intake and Output for Last 24 Hours 02/12/21 02/13/21 02/14/21 23:59 23:59 23:59 Intake Total 400 / 1050 2300 / 2850 750 / 750 Output Total 600 / 600 3450 / 3550 2300 / 2300 Balance -200 / 450 -1150 / -700 -1550 / -1550 Lab / Micro Data Result Diagrams: 02/11/21 14:35 02/11/21 16:41 Labs: Laboratory Results - last 24 hr 02/13/21 02/13/21 02/14/21 17:09 21:01 08:18 POC Glucose 268 H 241 H 201 H Physical Exam Const Constitutional Narrative: anxious Neuro Sensorium / Orientation: awake Psych Psych Narrative: agitatated Mood & Affect: anxious Assessment & Plan Assessment/Plan (1) Confusion: (2) Constipation: QUALIFIERS: Constipation type: unspecified constipation type Qualified Code(s): K59.00 - Constipation, unspecified (3) Failure to thrive: QUALIFIERS: Failure to thrive age range: in adult Qualified Code(s): R62.7 - Adult failure to thrive PLAN: 1. Encephalopathy * Metabolic * Likely due to possible underlying dementia, patient's recent stroke but also insomnia * Avoid potentiating medications * Encourage sleep as able. * Continue quetiapine 2. Constipation * resolved * Recently has had large volume stool removed at the [facility] but x-ray still shows a lot of proximal stool * She is claiming abdominal pain * Will give her dose of MiraLAX * If that does not work then we can always consider adding magnesium citrate 3. Failure to thrive * Patient is too confused to adequately be cared for at this time and is high risk for falls * Patient was to be admitted to a retirement this coming Saturday but the family does not feel they can adequately care for her at home at this time. The patient remain here until she can be safe discharge to a retirement which will hopefully be on the 6. * PT OT evaluate and treat * Case management to further assist and verify if the facility at [place] can accept her on the 6 4. recent posterior circulation stroke * Continue with aspirin, clopidogrel and high intensity statin 5. Diabetes mellitus type 2 * Continue with scheduled and as well is her and sliding scale insulin 6. VTE prophylaxis * Not indicated given current observation status 7. CODE STATUS: Addressed with the patient's son who is her power of state attorney. Patient is DNR Comfort Care arrest no intubation. 8. Urinary retention: Patient inconsolable and when trying to explained the risk of renal failure and risk of further constipation due to her extensive bl adder distention, patient is unable to recite those back to me. Discussed with the patient's son, Seth, who is the patient's power of state attorney explained the risks and benefits with him. He agreed to proceed. Greater than 40 minutes of which greater than 50% of time was discussing with the patient as well as the patient's son in regards to the need for the catheter. Catheter was subsequently placed by nursing. Charges/Coding Visit Charges Inpatient E&M: 47145 Subs Hosp L3
[2021-02-14] MEDS: Phenazopyridine 95 MG Tablet PO ×2 (12:36→14:24)
[2021-02-14] MEDS: Clopidogrel Bisulfate 75 MG Tablet PO (12:38)
[2021-02-14] MEDS: lamoTRIgine 150 MG Tablet 300 MG PO (12:38)
[2021-02-14] MEDS: Lisinopril 10 MG Tablet PO (12:38)
[2021-02-14] MEDS: Pantoprazole Sodium 20 MG Tablet PO (12:38)
[2021-02-14] MEDS: Cholecalciferol (VIT D3) 25 MCG TABLET (1,000 UNITS) 50 MCG PO (12:38)
[2021-02-14] MEDS: Docusate Sodium 100 MG Capsule PO (12:39)
[2021-02-14] MEDS: Loratadine 10 MG Tablet PO (12:39)
[2021-02-14] MEDS: Topiramate 50 MG Tablet PO (12:42)
--- NOTE | 2021-02-14 13:06 | PCM.TXEXTCAR ---
Diet 02/11/21 16:27 Diet: Consistent Carb - Calorie Controlled Food consistency:: Regular Liquid Consistency:: Regular/Thin Type of Dietary Supplement:: Glucerna Shake Is pt able to select menu?: No How many daily calories?: 2000 calorie Routine Orders/Code Status Enema Frequency: Daily PRN Jacobs Catheter Size: 16 Wound(s) right inner thigh: Wound Type: dry scabbed area under right breast: Wound Type: scratch Therapies Weight Bearing: Full weight bearing Physical Therapy: Eval and Treat Occupational Therapy: Eval and Treat Problem/Diagnosis (1) Confusion: Status: Acute (2) Constipation: Status: Acute (3) Failure to thrive: Status: Acute Allergies/Procedures Done in Hospital Allergies ciprofloxacin Allergy (Verified 02/11/21 14:10) Unknown hydrochlorothiazide Allergy (Verified 02/11/21 14:10) Unknown pentazocine [From Talwin] Allergy (Verified 02/11/21 14:10) Unknown acetaminophen [From Percocet] Adverse Reaction (Verified 02/12/21 17:55) PT UNSURE OF REACTION pt has tylenol since with no adverse reaction carvedilol Adverse Reaction (Verified 02/11/21 14:10) Rash oxycodone [From Percocet] Adverse Reaction (Verified 02/11/21 14:10) PT UNSURE OF REACTION Procedures: None Type of Care/Length of Stay Estimated LOS: Convalescent Care Less Than 30 days Type of Care Needed: Skilled Rehab Potential: Fair Prognosis: Fair Additional Orders/Day of Discharge Day of Discharge: 02/14/21 Discharge Plan Admission Admit Date/Time: 02/11/21 16:11 Attending Provider: Camilo Asif Primary Care Provider: [place] Discharge Orders/Prescriptions Prescriptions: New acetaminophen [Tylenol] 325 mg Tablet 650 mg PO Q4H PRN PRN (Reason: Pain 1-10 Or Fever) Qty: 0 RF: 0 melatonin 3 mg Tablet 3 mg PO QHS PRN PRN (Reason: SLEEP) Qty: 1 RF: 0 phenazopyridine [Azo Urinary Pain Relief] 95 mg Tablet 95 mg PO TID Qty: 5 RF: 0 nystatin [Nyamyc] 100,000 unit/gram Powder 1 applic topical TID Qty: 0 RF: 0 insulin lispro [Humalog KwikPen Insulin] 100 unit/mL Insulin Pen 12 unit subcut TIDAC Qty: 3 RF: 0 Humulin N NPH Insulin KwikPen 100 unit/mL (3 mL) Insulin Pen 35 unit subcut BIDCM Qty: 3 RF: 0 quetiapine 25 mg Tablet 25 mg PO QHS Qty: 0 RF: 0 tamsulosin 0.4 mg Capsule 0.4 mg PO DAILY@1730 Qty: 0 RF: 0 Continued omeprazole 20 MG capsule 20 mg PO BID RF: 0 topiramate 50 MG tablet 50 mg PO BID RF: 0 albuterol sulfate 2.5 MG/3 ML solution for nebulization 2.5 mg inhalation Q4H PRN PRN (Reason: Wheezing) RF: 0 lamotrigine 150 MG tablet 300 mg PO BID RF: 0 carvedilol 12.5 MG tablet 12.5 mg PO BID Qty: 60 RF: 0 clopidogrel 75 MG tablet 75 mg PO DAILY Qty: 30 RF: 0 aspirin 81 MG tablet,chewable 81 mg PO DAILY@0800 Qty: 30 RF: 2 lisinopril 10 MG tablet 10 mg PO BID Qty: 0 RF: 0 phenobarbital 30 MG tablet 32.4 mg PO TID Qty: 0 RF: 0 atorvastatin 80 MG tablet 80 mg PO QHS Qty: 30 RF: 2 cetirizine 10 mg Tablet 10 mg PO DAILY RF: 0 budesonide-formoterol 80-4.5 mcg/actuation Hfa Aerosol Inhaler 2 puff INHALATION BID RF: 0 fluticasone propionate 50 mcg/actuation [place],Suspension 1 spray INTRANASAL DAILY RF: 0 cholecalciferol (vitamin D3) 50 mcg (2,000 unit) Tablet 50 mcg PO DAILY RF: 0 Diclo Gel 1 % Kit 2 g TOPICAL BID RF: 0 docusate sodium 50 mg Capsule 50 mg PO DAILY RF: 0 escitalopram oxalate 5 mg Tablet 5 mg PO DAILY RF: 0 Discontinued Novolin R Flexpen 100 unit/mL (3 mL) Insulin Pen 20 unit SUBCUT BID RF: 0 Novolin N Flexpen 100 unit/mL (3 mL) Insulin Pen 60 unit SUBCUT BREAKFAST RF: 0 Novolin N Flexpen 100 unit/mL (3 mL) Insulin Pen 40 unit SUBCUT QHS RF: 0 [facility] - Disposition Disposition (needs filled in before D/C Order can be placed): Senior Care Facility
[2021-02-14] MEDS: Acetaminophen 325 MG Tablet 650 MG PO (13:09)
[2021-02-14 13:11] LABS: Bedside Glucose 199 mg/dL (70-110)
[2021-02-14 13:16] VITALS: BP 153/72; PULSE 62; RESP 18; TEMP 36.8; O2SAT 98
--- NOTE | 2021-02-14 13:18 | DS.PCM_ITS ---
Providers Date of Admission: 02/11/21 Primary Care Physician: [facility] Reason For Visit: FAILURE TO THRIVE Diagnosis Discharge Diagnosis (1) Confusion: Status: Acute Code(s): R41.0 - Disorientation, unspecified (2) Constipation: Status: Acute Code(s): K59.00 - Constipation, unspecified Qualifiers: Constipation type: unspecified constipation type Qualified Code(s): K59.00 - Constipation, unspecified (3) Failure to thrive: Status: Acute Qualifiers: Failure to thrive age range: in adult Qualified Code(s): R62.7 - Adult failure to thrive Medications at Discharge Home Medications omeprazole 20 mg PO BID 12/19/13 topiramate 50 mg PO BID 12/19/13 albuterol sulfate 2.5 mg INHALATION Q4H PRN PRN 05/09/14 lamotrigine 300 mg PO BID 07/22/20 aspirin 81 mg PO DAILY@0800 #30 tab.chew 11/30/20 carvedilol 12.5 mg PO BID #60 tablet 11/30/20 clopidogrel 75 mg PO DAILY #30 tablet 11/30/20 lisinopril 10 mg PO BID #0 11/30/20 phenobarbital 32.4 mg PO TID #0 11/30/20 atorvastatin 80 mg PO QHS #30 tablet 12/02/20 Diclo Gel 2 g TOPICAL BID 01/21/21 budesonide-formoterol 2 puff INHALATION BID 01/21/21 cetirizine 10 mg PO DAILY 01/21/21 cholecalciferol (vitamin D3) 50 mcg PO DAILY 01/21/21 fluticasone propionate 1 spray INTRANASAL DAILY 01/21/21 docusate sodium 50 mg PO DAILY 02/11/21 escitalopram oxalate 5 mg PO DAILY 02/11/21 acetaminophen [Tylenol] 650 mg PO Q4H PRN PRN #0 tab 02/14/21 insulin NPH isoph U-100 human [Humulin N NPH Insulin KwikPen] 35 unit SUBCUT BIDCM #3 ml 02/14/21 insulin lispro [Humalog KwikPen Insulin] 12 unit SUBCUT TIDAC #3 ml 02/14/21 melatonin 3 mg PO QHS PRN PRN #1 tab 02/14/21 nystatin [Nyamyc] 1 applic TOPICAL TID #0 g 02/14/21 phenazopyridine [Azo Urinary Pain Relief] 95 mg PO TID #5 tab 02/14/21 quetiapine 25 mg PO QHS #0 tab 02/14/21 tamsulosin 0.4 mg PO DAILY@1730 #0 cap 02/14/21 Hospital Course Operations None Procedures None Summary of Care Provided Minutes Spent on Discharge: 60 Hospital Course: 70-year-old female unable to care for by family. Patient was just very confused and urinating frequently. Patient will be discharged to snf facility in stable condition. Patient will need outpatient follow-up with geriatric psychiatry as well as urogynecology. 1. Encephalopathy Metabolic Likely due to possible underlying dementia, patient's recent stroke but also insomnia Avoid potentiating medications Encourage sleep as able. Continue quetiapine 2. Constipation resolved Recently has had large volume stool removed at the [facility] but x-ray still shows a lot of proximal stool She is claiming abdominal pain Will give her dose of MiraLAX If that does not work then we can always consider adding magnesium citrate 3. Failure to thrive Patient is too confused to adequately be cared for at this time and is high risk for falls Patient was to be admitted to a residential this coming Saturday but the family does not feel they can adequately care for her at home at this time. The patient remain here until she can be safe discharge to a residential which will hopefully be on the 6. PT OT evaluate and treat Case management to further assist and verify if the facility at [place] can accept her on the 6 4. recent posterior circulation stroke Continue with aspirin, clopidogrel and high intensity statin 5. Diabetes mellitus type 2 Continue with scheduled and as well is her and sliding scale insulin 6. Urinary retention: Patient inconsolable and when trying to explained the risk of renal failure and risk of further constipation due to her extensive bladder distention, patient is unable to recite those back to me. Discussed with the patient's son, Seth, who is the patient's power of [place] attorney ex plained the risks and benefits with him. He agreed to proceed. Follow up with urology as outpt. Weight / BMI Weight Weight: 109.458 kg Body Mass Index (BMI) 41.4 ABG / Lab / Microbiology Data Result Diagrams: 02/11/21 14:35 02/11/21 16:41 Laboratory: Laboratory Results - last 24 hr 02/13/21 02/13/21 02/14/21 17:09 21:01 08:18 POC Glucose 268 H 241 H 201 H 02/14/21 12:32 POC Glucose 199 H Meaningful Use Info Meaningful Use Diagnoses (Choose all that apply): None applicable Discharge Plan Admission Admit Date/Time: 02/11/21 16:11 Attending Provider: Camilo Asif [facility] Dis[facility] Orders/Prescriptions Prescriptions: New acetaminophen [Tylenol] 325 mg Tablet 650 mg PO Q4H PRN PRN (Reason: Pain 1-10 Or Fever) Qty: 0 RF: 0 melatonin 3 mg Tablet 3 mg PO QHS PRN PRN (Reason: SLEEP) Qty: 1 RF: 0 phenazopyridine [Azo Urinary Pain Relief] 95 mg Tablet 95 mg PO TID Qty: 5 RF: 0 nystatin [Nyamyc] 100,000 unit/gram Powder 1 applic topical TID Qty: 0 RF: 0 insulin lispro [Humalog KwikPen Insulin] 100 unit/mL Insulin Pen 12 unit subcut TIDAC Qty: 3 RF: 0 Humulin N NPH Insulin KwikPen 100 unit/mL (3 mL) Insulin Pen 35 unit subcut BIDCM Qty: 3 RF: 0 quetiapine 25 mg Tablet 25 mg PO QHS Qty: 0 RF: 0 tamsulosin 0.4 mg Capsule 0.4 mg PO DAILY@1730 Qty: 0 RF: 0 Continued omeprazole 20 MG capsule 20 mg PO BID RF: 0 topiramate 50 MG tablet 50 mg PO BID RF: 0 albuterol sulfate 2.5 MG/3 ML solution for nebulization 2.5 mg inhalation Q4H PRN PRN (Reason: Wheezing) RF: 0 lamotrigine 150 MG tablet 300 mg PO BID RF: 0 carvedilol 12.5 MG tablet 12.5 mg PO BID Qty: 60 RF: 0 clopidogrel 75 MG tablet 75 mg PO DAILY Qty: 30 RF: 0 aspirin 81 MG tablet,chewable 81 mg PO DAILY@0800 Qty: 30 RF: 2 lisinopril 10 MG tablet 10 mg PO BID Qty: 0 RF: 0 phenobarbital 30 MG tablet 32.4 mg PO TID Qty: 0 RF: 0 atorvastatin 80 MG tablet 80 mg PO QHS Qty: 30 RF: 2 cetirizine 10 mg Tablet 10 mg PO DAILY RF: 0 budesonide-formoterol 80-4.5 mcg/actuation Hfa Aerosol Inhaler 2 puff INHALATION BID RF: 0 fluticasone propionate 50 mcg/actuation [place],Suspension 1 spray INTRANASAL DAILY RF: 0 cholecalciferol (vitamin D3) 50 mcg (2,000 unit) Tablet 50 mcg PO DAILY RF: 0 Diclo Gel 1 % Kit 2 g TOPICAL BID RF: 0 docusate sodium 50 mg Capsule 50 mg PO DAILY RF: 0 escitalopram oxalate 5 mg Tablet 5 mg PO DAILY RF: 0 Discontinued Novolin R Flexpen 100 unit/mL (3 mL) Insulin Pen 20 unit SUBCUT BID RF: 0 Novolin N Flexpen 100 unit/mL (3 mL) Insulin Pen 60 unit SUBCUT BREAKFAST RF: 0 Novolin N Flexpen 100 unit/mL (3 mL) Insulin Pen 40 unit SUBCUT QHS RF: 0 Referrals / Follow Up: Nicky Berger MD [STAFF PHYSICIAN] - Within 2 Weeks (Urinary retention with catheter.) [facility] [Primary Care Provider] - Disposition Disposition (needs filled in before D/C Order can be placed): [facility] Charges/Coding Visit Charges OBSV E&M: 28001 Observation care discharge
--- NOTE | 2021-02-14 14:34 | CASEMGMT ---
Social Work Note BRANDI received call from Bin PAZ stating [place] has approved pt to admit to [facility] today and Bin will be calling Hiral Casper at [facility] to update her. BRANDI asked Bin if she needed a new GEC form since pt is not at [facility] and Bin states she doesn't need a new GEC form, pt is approved to admit to [facility] today under detention care. Bin states once pt is at [facility], they can request Skilled level of care from [facility] but pt can still admit to [facility] today. BRANDI asked Bin about pt's psychiatric history. Bin states she reviewed pt's chart and the last time pt saw the [place] psychiatrist was January 29, 2019. Bin states she is not aware of pt having any psychiatric hospitalizations. Bin states pt receives no income due to mental health hx.Bin states pt does have diagnosis of PTSD and Bipolar. Bin states she completed the PAS/RR last /Saturday and pt didn't trip the screen when she completed the PAS/RR. Bin states she spoke with pt's JOAQUIN Walker to gather information. Pt's daughter Valentina is no longer involved with pt at this time. BRANDI informed Bin that pt will likely discharge to [facility] today. BRANDI placed a call to PAS/RR department at [facility] and spoke with Nettie. Nettie states that since PAS/RR was just completed and it hasn't been used yet, that PAS/RR that Bin BRANDI at [place] completed can be used for pt to admit to [facility] today. BRANDI placed a call to back to Hiral Casper at [facility] and left message to confirm [facility] is able to accept pt today and [facility] will just need to print off the PAS/RR. BRANDI received message from Hiral Casper at [facility] confirming they received [place] approval and pt can admit to [facility] today. BRANDI updated physician. Plan: [facility] today Melida Leo TRACING LATHE SET UP OPERATOR, TRAFFIC REPRESENTATIVE
[2021-02-14 14:41] VITALS: BP 153/72; PULSE 62; RESP 18; TEMP 36.8; O2SAT 98
--- NOTE | 2021-02-14 15:09 | PHA.DC.MR ---
Pharmacy Service has performed discharge medication reconciliation for this patient. The patient's discharge medication list was reviewed for discrepancies and discrepancies were resolved. Home Medications omeprazole 20 mg PO BID 12/19/13 topiramate 50 mg PO BID 12/19/13 albuterol sulfate 2.5 mg INHALATION Q4H PRN PRN 05/09/14 lamotrigine 300 mg PO BID 07/22/20 aspirin 81 mg PO DAILY@0800 #30 tab.chew 11/30/20 carvedilol 12.5 mg PO BID #60 tablet 11/30/20 clopidogrel 75 mg PO DAILY #30 tablet 11/30/20 lisinopril 10 mg PO BID #0 11/30/20 phenobarbital 32.4 mg PO TID #0 11/30/20 atorvastatin 80 mg PO QHS #30 tablet 12/02/20 Diclo Gel 2 g TOPICAL BID 01/21/21 budesonide-formoterol 2 puff INHALATION BID 01/21/21 cetirizine 10 mg PO DAILY 01/21/21 cholecalciferol (vitamin D3) 50 mcg PO DAILY 01/21/21 fluticasone propionate 1 spray INTRANASAL DAILY 01/21/21 docusate sodium 50 mg PO DAILY 02/11/21 escitalopram oxalate 5 mg PO DAILY 02/11/21 acetaminophen [Tylenol] 650 mg PO Q4H PRN PRN #0 tab 02/14/21 insulin NPH isoph U-100 human [Humulin N NPH Insulin KwikPen] 35 unit SUBCUT BIDCM #3 ml 02/14/21 insulin lispro [Humalog KwikPen Insulin] 12 unit SUBCUT TIDAC #3 ml 02/14/21 melatonin 3 mg PO QHS PRN PRN #1 tab 02/14/21 nystatin [Nyamyc] 1 applic TOPICAL TID #0 g 02/14/21 phenazopyridine [Azo Urinary Pain Relief] 95 mg PO TID #5 tab 02/14/21 quetiapine 25 mg PO QHS #0 tab 02/14/21 tamsulosin 0.4 mg PO DAILY@1730 #0 cap 02/14/21
--- NOTE | 2021-02-14 15:50 | CASEMGMT ---
Social Work Note BRANDI faxed completed discharge paperwork to Hiral Casper at [facility] including transfer to extended care facility, signed medication list, any scripts, COVID tool and COVID test. Original in SNF folder and copy on pt's chart. PAS/RR was already completed by Bin PAZ so a new PAS/RR is not needed. BRANDI spoke with RN, BRANDI to arrange transportation via cot. BRANDI accessed trip assist and arranged transportation via cot for 5:00pm. Transportation form completed and placed on SNF folder and copy on pt's chart. BRANDI placed a call to pt's son Miguel Ángel and updated him on discharge to [facility] today and transportation time. Miguel Ángel states understanding, asked to speak with pt. BRANDI brought portable phone to pt's room and allowed pt to speak with her son Miguel Ángel. BRANDI updated RN and pt on discharge and transportation time. BRANDI placed a call to Hiral Casper at [facility] and updated her on transportation time. Plan: [facility] with Physician's trasporting pt via cot at 5:00pm Melida GRANT, WAD COMPRESSOR OPERATOR ADJUSTER
--- NOTE | 2021-02-14 15:50 | CASEMGMT ---
JUNIOR MORROW attempting to discuss MARTIN form with patient son Miguel Ángel Tejeda. BRANDI Hawkins had son on the phone, RN CRISTHIAN explained MARTIN form, patient son voiced understanding. Pt son gave verbal consent to sign form and filed in chart. Pt provided with a copy of signed MARTIN form. Patient son had no further questions or concerns at this time.
--- NOTE | 2021-02-14 16:48 | NURSING ---
report called to [facility]-
== END 2021-02-14 17:06 | disposition skilled nursing facility (03) ==
LOC: ED 15:04 → MS3 16:17
PROVIDERS: Family Medicine; Emergency Provider Emergency Medicine
DX: G93.41 Metabolic encephalopathy (principal); R62.7 Adult failure to thrive; K59.00 Constipation, unspecified; K21.9 Gastro-esophageal reflux disease without esophagitis; M06.9 Rheumatoid arthritis, unspecified; J45.909 Unspecified asthma, uncomplicated; Z79.899 Other long term (current) drug therapy; Z79.4 Long term (current) use of insulin; Z79.02 Long term (current) use of antithrombotics/antiplatelets; Z79.82 Long term (current) use of aspirin; Z79.51 Long term (current) use of inhaled steroids; F32.9 Major depressive disorder, single episode, unspecified; Z86.73 Personal history of transient ischemic attack (TIA), and cerebral infarction without residual deficits; E11.649 Type 2 diabetes mellitus with hypoglycemia without coma; G43.909 Migraine, unspecified, not intractable, without status migrainosus; R33.9 Retention of urine, unspecified
CPT/HCPCS: 36415; 70450; 74018; 80053; 81001; 82947; 82962; 84484; 85025; 87426; 93005; 94640; 96374; 96375; 97162; 97165; 97530; 99218; 99285; A4216; G0378; J2405

== ENCOUNTER 2021-02-23 10:40 | Inpatient (IN) | payer OTHER, SELFPAY ==
[2021-02-23] VITALS (8 sets, daily range): BP systolic 138–204; BP diastolic 55–107; PULSE 66–74; RESP 13–21; TEMP 36.2–36.8; O2SAT 95–100; BMI 41.2
--- NOTE | 2021-02-23 10:43 | CT_ITS ---
STUDY: CT HEAD STROKE PROTOCOL W/O CONTRAST INJECTION REASON FOR EXAM: Female, 70 years old. Neuro deficit, acute, stroke suspected RADIATION DOSAGE (If Supplied By Facility): CTDIvol = ( 44.99 ) mGy, DLP = ( 796.11 ) mGycm TECHNIQUE: Transaxial CT imaging of the brain was performed without administration of intravenous contrast material. Individualized dose optimization techniques were used for this CT. COMPARISON: Comparison is made with prior study dated 02/11/2021. FINDINGS: Normal soft tissue structures. There is hyperostosis frontalis internus. There is mild cerebral atrophy with widening of the extra-axial spaces and ventricular dilatation. Evidence of old infarction involving the medial posterior right occipital lobe. Normal basal ganglia and thalami. Normal brainstem. Normal cerebellum. There is no intracranial hemorrhage. There are no findings of an acute ischemic infarction. Atherosclerotic calcification of the vertebral arteries and cavernous portions of the internal carotid arteries bilaterally. Normal visualized paranasal sinuses. CT/STROKE Brain/Head without Cont IMPRESSION: Chronic involutional changes of the brain. 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 N.B. : The above Results were Read Back by Albert Perkins MD to Chinmay Durán and understanding confirmed on 02/23/2021 10:56:22 (ET). Electronically Signed: Albert Perkins MD at 10:58 EDT , Service support ,
--- NOTE | 2021-02-23 10:43 | CT_ITS ---
STUDY: CTA HEAD AND NECK WITH CONTRAST REASON FOR EXAM: Female, 70 years old. Neuro deficit, acute, stroke suspected RADIATION DOSAGE (If Supplied By Facility): CTDIvol = ( 27.06 ) mGy, DLP = ( 809.25 ) mGycm TECHNIQUE: CT angiography was performed with a multi-detector CT scanner. Data acquisition was obtained from the skull base through the vertex following intravenous administration of IV 100mL [id number]-[id number]. MIP images were reconstructed from the axial data set. Post-processing of the angiographic images was performed, with multiplanar reformation and 3D reconstruction. Individualized dose optimization techniques were used for this CT. COMPARISON: Comparison is made with prior examination dated 01/21/2021. FINDINGS: Normal bilateral petrous carotid arteries. There is calcified plaque formation of the right cavernous carotid artery, without a cross-sectional luminal stenosis. There is calcified plaque formation of the left cavernous carotid artery, without a cross-sectional luminal stenosis. Normal right A1 segments of the anterior cerebral artery. Normal left A1 segments of the anterior cerebral artery. Normal intact anterior communicating artery (ACOM). Normal bilateral A2 segments of the anterior cerebral arteries. Normal right M1 and M2 segments of the middle cerebral arteries, with a normal M1 bifurcation. Normal left M1 and M2 segments of the middle cerebral arteries, with a normal M1 bifurcation. Normal right posterior communicating artery (PCOM). Normal left posterior communicating artery (PCOM). Normal bilateral vertebral arteries. Normal basilar artery with a normal basilar bifurcation. The visualized bilateral superior cerebellar (SCA) arteries are normal. Normal bilateral P1, P2 and visualized P3 segments of the posterior cerebral arteries. There is no demonstrated aneurysm of the [place]. AORTIC ARCH: Normal visualized aortic arch. Normal origins of the brachiocephalic, left common carotid, and left subclavian arteries. RIGHT CAROTID ARTERIES: Normal right common carotid artery (CCA). Normal right common carotid bulb. Normal origin of the right internal carotid (ICA) artery without a hemodynamically significant stenosis. Normal visualized cervical portion of the right internal carotid artery. Normal origin of the right external carotid artery (ECA). LEFT CAROTID ARTERIES: Normal left common carotid artery (CCA). Normal left common carotid bulb. Normal origin of the left internal carotid (ICA) artery without a hemodynamically significant stenosis. Normal visualized cervical portion of the left internal carotid artery. Normal origin of the left external carotid artery (ECA). VERTEBRAL ARTERIES: Normal bilateral vertebral arteries. CT/STROKE CTA Head AND Neck W/Con IMPRESSION: Normal CTA Head and neck with contrast. N.B. : The above Results were Read Back by Albert Perkins MD to Chinmay Durán and understanding confirmed on 02/23/2021 11:01:21 (ET). Electronically Signed: Albert Perkins MD at 11:02 EDT , Service support ,
--- NOTE | 2021-02-23 10:43 | EKG12_ITS ---
Test Reason : STROKE Blood Pressure : / mmHG Vent. Rate : 065 BPM Atrial Rate : 065 BPM P-R Int : 230 ms QRS Dur : 128 ms QT Int : 492 ms P-R-T Axes : 042 -58 075 degrees QTc Int : 511 ms Sinus rhythm with 1st degree A-V block Left axis deviation Non-specific intra-ventricular conduction block Abnormal ECG Confirmed by MARIA E ALEJANDRO, CARLOS ([id number]), publications editor CELINA RODRIGUES ([id number]) on 02/27/2021 9:26:02 AM Referred By: CHELSEA Confirmed By:PRASAD SANDERSON MD
--- NOTE | 2021-02-23 10:50 | CM.ED ---
SOCIAL WORK Stroke Alert Responded to Stroke Alert. SW to remain available for needs. Sherrill Meléndez, MIDLEVEL PROVIDER, LONG TERM
[2021-02-23 11:09] LABS: Absolute Neutrophil Count 3.9 X10^3/uL (2.0-7.7); Basophil# 0.09 X10^3/uL; Basophil% 1.4 % (0-1); Eosinophils% 4.5 % (0-5); Hematocrit 32.6 % (37-47); Hemoglobin 10.9 g/dL (12.0-15.0); Lymphocyte % 25.5 % (19-41); Mean Corp Hgb Conc 33.4 g/dL (32-36); Mean Corpuscular Hgb 29.9 pg (27.0-32.0); Mean Corpuscular Volume 89.3 fL (81-99); Mean Platelet Vol. 10.9 fl (6.2-12.0); Monocyte# 0.62 X10^3/uL; Monocyte% 9.3 % (0-10); NRBC Flagged by Analyzer 0 % (0-5); Neutrophil # 3.93 X10^3/uL (2.7-7.7); Platelet Count 349 K/mm3 (150-450); RBC Distribution Width CV 12.3 % (11.6-14.6); RBC Distribution Width SD 40.2 fl (35.1-43.9); Red Blood Count 3.65 M/mm3 (4.2-5.4); White Blood Count 6.7 K/mm3 (4.4-11.0)
--- NOTE | 2021-02-23 11:25 | RAD_ITS ---
STUDY: X-RAY CHEST REASON FOR EXAM: Female, 70 years old. Neuro deficit, acute, stroke suspected TECHNIQUE: Single AP portable view of the chest. COMPARISON: Comparison is made with prior examination dated 01/21/2021. FINDINGS: EKG electrodes are seen. The lungs are clear and expanded. There is no demonstrated pleural abnormality. Normal size heart. Normal mediastinum and jane. Normal visualized pulmonary arteries. Normal visualized aortic arch and descending thoracic aorta. There are diffuse degenerative changes of the visualized thoracic spine. 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 The patient is status post right shoulder replacement. There is no demonstrated abnormality of the visualized soft tissue structures of the upper abdomen. RAD/Chest 1 View IMPRESSION: No acute abnormality is seen. Electronically Signed: Albert Perkins MD at 11:59 EDT , Service support ,
[2021-02-23 11:27] LABS: International Normalized Ratio 1.4
[2021-02-23 11:28] LABS: Partial Thromboplast Time 28.9 Seconds (24.1-36.2)
[2021-02-23 11:29] LABS: Anion Gap 7 (5-15); BUN 9 mg/dL (7-18); BUN/Creat Ratio 12.2 RATIO (10-20); Calcium,Total 8.4 mg/dL (8.5-10.1); Chloride 104 mmol/L (98-107); Creatinine, Serum 0.74 mg/dL (0.55-1.02); EST Glomerular Filtration Rate 83 mL/min (>60); Est Glom Filt Rate - Afr Amer 100 mL/min (>60); Glucose 129 mg/dL (74-106); Potassium 3.9 mmol/L (3.5-5.1); Sodium Level 135 mmol/L (136-145); Troponin-I HS 6.1 pg/mL (3.0-53.7)
[2021-02-23 13:30] LABS: Bedside Glucose 170 mg/dL (70-110)
--- NOTE | 2021-02-23 14:27 | ED.VIS.STROK ---
HPI History of Present Illness Chief Complaint: Neuro S/Sx Narrative Narrative: Patient presenting with visual complaints that started this morning. She is found to have left-sided hemianopsia. She has no other acute deficits. She denies headache, numbness, tingling. It is reported that she has a history of tunnel vision in the past but this is different. Patient recently worked up for TIA and discharged to a facility. She currently resides at home and her family cares for her. [facility] Medical History Asthma Chronic pain Depression Diabetes mellitus Diabetes mellitus GERD (gastroesophageal reflux disease) Kidney stones Migraines Non-smoker Rheumatoid arthritis Seizures Stroke/cerebrovascular accident TIA (transient ischemic attack) Home Medications omeprazole 20 mg PO BID 12/19/13 [History Last Taken 07/22/20] topiramate 50 mg PO BID 12/19/13 [History Last Taken 07/22/20] albuterol sulfate 2.5 mg INHALATION Q4H PRN PRN 05/09/14 [History Last Taken Unknown] lamotrigine 300 mg PO BID 07/22/20 [History Last Taken Unknown] aspirin 81 mg PO DAILY@0800 #30 tab.chew 11/30/20 [Rx Last Taken Unknown] carvedilol 12.5 mg PO BID #60 tablet 11/30/20 [Rx Last Taken Unknown] clopidogrel 75 mg PO DAILY #30 tablet 11/30/20 [Rx Last Taken Unknown] lisinopril 10 mg PO BID #0 11/30/20 [Rx Last Taken Unknown] phenobarbital 32.4 mg PO TID #0 11/30/20 [Rx Last Taken 07/22/20] atorvastatin 80 mg PO QHS #30 tablet 12/02/20 [Rx Last Taken Unknown] Diclo Gel 2 g TOPICAL BID 01/21/21 [History Last Taken Unknown] budesonide-formoterol 2 puff INHALATION BID 01/21/21 [History Last Taken Unknown] cetirizine 10 mg PO DAILY 01/21/21 [History Last Taken Unknown] cholecalciferol (vitamin D3) 50 mcg PO DAILY 01/21/21 [History Last Taken Unknown] fluticasone propionate 1 spray INTRANASAL DAILY 01/21/21 [History Last Taken Unknown] docusate sodium 50 mg PO DAILY 02/11/21 [History Last Taken Unknown] escitalopram oxalate 5 mg PO DAILY 02/11/21 [History Last Taken Unknown] acetaminophen [Tylenol] 650 mg PO Q4H PRN PRN #0 tab 02/14/21 [Rx Last Taken Unknown] insulin NPH isoph U-100 human [Humulin N NPH Insulin KwikPen] 35 unit SUBCUT BIDCM #3 ml 02/14/21 [Rx Last Taken Unknown] insulin lispro [Humalog KwikPen Insulin] 12 unit SUBCUT TIDAC #3 ml 02/14/21 [Rx Last Taken Unknown] melatonin 3 mg PO QHS PRN PRN #1 tab 02/14/21 [Rx Last Taken Unknown] nystatin [Nyamyc] 1 applic TOPICAL TID #0 g 02/14/21 [Rx Last Taken Unknown] phenazopyridine [Azo Urinary Pain Relief] 95 mg PO TID #5 tab 02/14/21 [Rx Last Taken Unknown] quetiapine 25 mg PO QHS #0 tab 02/14/21 [Rx Last Taken Unknown] tamsulosin 0.4 mg PO DAILY@1730 #0 cap 02/14/21 [Rx Last Taken Unknown] Allergy/AdvReac Type Severity Reaction Status Date / Time ciprofloxacin Allergy Unknown Verified 02/11/21 14:10 hydrochlorothiazide Allergy Unknown Verified 02/11/21 14:10 pentazocine [From Talwin] Allergy Unknown Verified 02/11/21 14:10 acetaminophen [From Percocet] AdvReac PT UNSURE Verified 02/12/21 17:55 OF REACTION carvedilol AdvReac Rash Verified 02/11/21 14:10 oxycodone [From Percocet] AdvReac PT UNSURE Verified 02/11/21 14:10 OF REACTION Family History Other Cancer Surgical History H/O shoulder surgery History of cholecystectomy Social History Smoking Status: Never smoker ROS ROS ED Constitutional Constitutional ED: Denies chills or fever(s) Eyes Eyes: Reports change in vision bilateral ENT ENT ED: Denies rhinorrhea or sore throat Cardiovascular Cardiovascular: Denies palpitations or racing heartbeat Respiratory/Chest Respiratory/Chest: Denies cough or dyspnea Gastrointestinal Gastrointestinal: Denies abdominal pain or nausea Genitourinary Genitourinary ED: Denies dysuria or hematuria Musculoskeletal Musculoskeletal: Denies arthralgias or myalgias Integumentary Denies abscess or rash Neurologic Neurologic: Reports other Details: Left hemianopia. ; Denies headache(s) or paresthesias Psychiatric Psychiatric: Denies anxiety or depression EXAM Physical Exam Const Vital Signs: 02/23/21 10:43 02/23/21 10:51 02/23/21 11:41 Temperature 98.2 F Temperature Source Oral Pulse Rate 67 68 Respiratory Rate 19 H 15 Blood Pressure 165/66 H 138/85 H Blood Pressure Mean 99 102 Pulse Ox 98 100 95 Oxygen Delivery Method Room Air Room Air Room Air 02/23/21 12:30 02/23/21 13:32 02/23/21 14:00 Temperature Temperature Source Pulse Rate 68 68 72 Respiratory Rate 13 21 H 14 Blood Pressure 164/82 H 204/77 H 193/96 H Blood Pressure Mean 109 119 128 Pulse Ox 99 100 95 Oxygen Delivery Method Room Air Room Air Room Air Positive obese General Appearance ED: NAD Nutritional Appearance: obese HEENT Reports moist mucous membranes atraumatic and trauma Eyes PERRL and EOMs intact bilaterally Resp normal respiratory effort and clear to auscultation bilaterally Cardio Rate: regular rate Rhythm: regular rhythm GI normal to inspection, nondistended, normoactive bowel sounds Extremity normal to inspection Neuro oriented x3 Neuro Narrative: Left hemianopia Sensorium / Orientation: alert Psych mental status grossly normal Skin Rashes: no rashes STROKE Vital Signs/Narrative: Vital Signs Temp Pulse Resp BP Pulse Ox 02/23/21 14:00 72 14 193/96 H 95 02/23/21 13:32 68 21 H 204/77 H 100 02/23/21 12:30 68 13 164/82 H 99 02/23/21 11:41 68 15 138/85 H 95 02/23/21 10:51 100 02/23/21 10:43 98.2 F 67 19 H 165/66 H 98 MDM MDM MDM Narrative Medical decision making narrative: Patient presenting with visual complaints determined to be left-sided hemianopia. [facility] neurology did beam in and stated that the patient was not a TPA candidate. They did recommend admission MRI. EKG is sinus rhythm with first-degree AV block on my interpretation. There is no ST elevation or depression noted. Patient's lab work-up is otherwise unremarkable. CT brain is negative for acute intracranial abnormality. CTA head and neck was also negative. Patient continues to have symptoms. I did speak with the patient's family member and she did confirm that this is a new visual complaint. Patient discussed with hospitalist for admission for CVA given her symptoms. Impression: 1. Left hemianopia Lab Data Labs: Laboratory Results - last 24 hr 02/23/21 02/23/21 02/23/21 10:55 10:55 10:55 WBC 6.7 RBC 3.65 L Hgb 10.9 L Hct 32.6 L MCV 89.3 MCH 29.9 MCHC 33.4 RDW Std Deviation 40.2 RDW Coeff of Linda 12.3 Plt Count 349 MPV 10.9 Immature Gran % (Auto) 0.300 Neut % (Auto) 59.0 Lymph % (Auto) 25.5 [place] % (Auto) 9.3 Eos % (Auto) 4.5 Baso % (Auto) 1.4 H Absolute Neuts (auto) 3.9 Absolute Lymphs (auto) 1.70 Nucleated RBC % 0 PT 16.0 H INR 1.4 APTT 28.9 Sodium 135 L Potassium 3.9 Chloride 104 Carbon Dioxide 24.0 Anion Gap 7 BUN 9 Creatinine 0.74 Estim Creat Clear Calc 45.20 Est GFR (MDRD) Af Amer 100 Est GFR (MDRD) Non-Af 83 BUN/Creatinine Ratio 12.2 Glucose 129 H Calcium 8.4 L Troponin I High Sens 6.1 POC Glucose 02/23/21 13:24 WBC RBC Hgb Hct MCV MCH MCHC RDW Std Deviation RDW Coeff of Linda Plt Count MPV Immature Gran % (Auto) Neut % (Auto) Lymph % (Auto) [place] % (Auto) Eos % (Auto) Baso % (Auto) Absolute Neuts (auto) Absolute Lymphs (auto) Nucleated RBC % PT INR APTT Sodium Potassium Chloride Carbon Dioxide Anion Gap BUN Creatinine Estim Creat Clear Calc Est GFR (MDRD) Af Amer Est GFR (MDRD) Non-Af BUN/Creatinine Ratio Glucose Calcium Troponin I High Sens POC Glucose 170 H Radiography Diagnostic Testing: Radiology Impression Brain CT 02/23/21 10:43 IMPRESSION: Chronic involutional changes of the brain. 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 N.B. : The above Results were Read Back by Albert Perkins MD to Chinmay Durán and understanding confirmed on 02/23/2021 10:56:22 (ET). Electronically Signed: Albert Perkins MD at 10:58 EDT , Service support , ADDENDUM: 02/23/21 1105 IMPRESSION: Chronic involutional changes of the brain. 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 N.B. : The above Results were Read Back by Albert Perkins MD to Chinmay Durán and understanding confirmed on 02/23/2021 10:56:22 (ET). Electronically Signed: Albert Perkins MD at 10:58 EDT , Service support , Head/Neck CTA 02/23/21 10:43 IMPRESSION: Normal CTA Head and neck with contrast. N.B. : The above Results were Read Back by Albert Perkins MD to Chinmay Durán and understanding confirmed on 02/23/2021 11:01:21 (ET). Electronically Signed: Albert Perkins MD at 11:02 EDT , Service support , ADDENDUM: 02/23/21 1109 IMPRESSION: Normal CTA Head and neck with contrast. N.B. : The above Results were Read Back by Albert Perkins MD to Chinmay Durán and understanding confirmed on 02/23/2021 11:01:21 (ET). Electronically Signed: Albert Perkins MD at 11:02 EDT , Service support , Chest X-Ray 07/15/21 11:25 IMPRESSION: No acute abnormality is seen. Electronically Signed: Albert Perkins MD at 11:59 EDT , Service support , Discharge Plan Triage Chief Complaint: Neuro S/Sx ED Provider: Chinmay Durán Dx/Rx/DC Orders Prescriptions: No Action omeprazole 20 MG capsule 20 mg PO BID RF: 0 topiramate 50 MG tablet 50 mg PO BID RF: 0 albuterol sulfate 2.5 MG/3 ML solution for nebulization 2.5 mg inhalation Q4H PRN PRN (Reason: Wheezing) RF: 0 lamotrigine 150 MG tablet 300 mg PO BID RF: 0 carvedilol 12.5 MG tablet 12.5 mg PO BID Qty: 60 RF: 0 clopidogrel 75 MG tablet 75 mg PO DAILY Qty: 30 RF: 0 aspirin 81 MG tablet,chewable 81 mg PO DAILY@0800 Qty: 30 RF: 2 lisinopril 10 MG tablet 10 mg PO BID Qty: 0 RF: 0 phenobarbital 30 MG tablet 32.4 mg PO TID Qty: 0 RF: 0 atorvastatin 80 MG tablet 80 mg PO QHS Qty: 30 RF: 2 cetirizine 10 mg Tablet 10 mg PO DAILY RF: 0 budesonide-formoterol 80-4.5 mcg/actuation Hfa Aerosol Inhaler 2 puff INHALATION BID RF: 0 fluticasone propionate 50 mcg/actuation [place],Suspension 1 spray INTRANASAL DAILY RF: 0 cholecalciferol (vitamin D3) 50 mcg (2,000 unit) Tablet 50 mcg PO DAILY RF: 0 Diclo Gel 1 % Kit 2 g TOPICAL BID RF: 0 docusate sodium 50 mg Capsule 50 mg PO DAILY RF: 0 escitalopram oxalate 5 mg Tablet 5 mg PO DAILY RF: 0 acetaminophen [Tylenol] 325 mg Tablet 650 mg PO Q4H PRN PRN (Reason: Pain 1-10 Or Fever) Qty: 0 RF: 0 melatonin 3 mg Tablet 3 mg PO QHS PRN PRN (Reason: SLEEP) Qty: 1 RF: 0 phenazopyridine [Azo Urinary Pain Relief] 95 mg Tablet 95 mg PO TID Qty: 5 RF: 0 nystatin [Nyamyc] 100,000 unit/gram Powder 1 applic topical TID Qty: 0 RF: 0 insulin lispro [Humalog KwikPen Insulin] 100 unit/mL Insulin Pen 12 unit subcut TIDAC Qty: 3 RF: 0 Humulin N NPH Insulin KwikPen 100 unit/mL (3 mL) Insulin Pen 35 unit subcut BIDCM Qty: 3 RF: 0 quetiapine 25 mg Tablet 25 mg PO QHS Qty: 0 RF: 0 tamsulosin 0.4 mg Capsule 0.4 mg PO DAILY@1730 Qty: 0 RF: 0 Primary Care Provider: [facility]
[2021-02-23] MEDS: Aspirin 81 MG TAB.CHEW 324 MG PO (14:40)
--- NOTE | 2021-02-23 14:55 | HP.PCM.HOS_ITS ---
HPI - General General Date of Admission: 02/23/21 HPI Narrative RICKEY JAQUEZ, is a 70 F who presented to the emergency department at [facility] on 02/23/2021 complaining of acute visual changes. The patient has been admitted several times since suffering a stroke in November 2020. Per discussion with her [id number]-bru in the emergency department she has been diagnosed with central vision loss by the car seat coverer but was complaining of complete visual deficit this morning when she got up. She was recently here and was discharged on 02/14 to a half-way facility but signed out from there within 24 hours AMA. Per her [id number]-[id number] she is having significant depression and anxiety and is to be meeting with a psychiatrist soon. They have faxed Lexapro but her medications are by the mail and she has not yet initiated this medication. When I walked into the room she reported that she was unable to see but was able to see me upon my entrance. Per discussion with the ED physician his exam revealed a left homonymous hemianopsia and my exam revealed a bitemporal hemianopsia. It seems that the patient's visual deficits are somewhat inconsistent but chronic in nature for the most part. A stroke team was called on admission a CT of her head was performed and was negative. A CTA was performed and was negative as well. Her EKG shows first-degree heart block and left axis deviation with poor R wave progression but no signs of acute ischemia. Her CBC is overall unremarkable other than a mild anemia. BMP is normal except for a mild hyponatremia at a sodium of 135. Her troponin thus far has been negative. She currently is taking aspirin and Plavix that was prescribed after her initial stroke and has been compliant with these medications. Stroke team was called and the stroke neurologist recommended admission with repeat MRI. She has had a recent echocardiogram so we will not repeat this. She will be admitted to PCU. [facility] Medical History Asthma Chronic pain Depression Diabetes mellitus Diabetes mellitus GERD (gastroesophageal reflux disease) Kidney stones Migraines Non-smoker Rheumatoid arthritis Seizures Stroke/cerebrovascular accident TIA (transient ischemic attack) Home Medications omeprazole 20 mg PO BID 12/19/13 [History Last Taken 02/22/21] topiramate 50 mg PO BID 12/19/13 [History Last Taken 02/22/21] albuterol sulfate 2.5 mg INHALATION Q4H PRN PRN 05/09/14 [History Last Taken Unknown] lamotrigine 300 mg PO BID 07/22/20 [History Last Taken 02/22/21] aspirin 81 mg PO DAILY@0800 #30 tab.chew 11/30/20 [Rx Last Taken 02/22/21] carvedilol 12.5 mg PO BID #60 tablet 11/30/20 [Rx Last Taken 02/22/21] clopidogrel 75 mg PO DAILY #30 tablet 11/30/20 [Rx Last Taken 02/22/21] lisinopril 10 mg PO BID #0 11/30/20 [Rx Last Taken 02/22/21] atorvastatin 80 mg PO QHS #30 tablet 12/02/20 [Rx Last Taken 02/22/21] cetirizine 10 mg PO DAILY 01/21/21 [History Last Taken 02/22/21] cholecalciferol (vitamin D3) 50 mcg PO DAILY 01/21/21 [History Last Taken 02/22/21] fluticasone propionate 1 spray INTRANASAL DAILY 01/21/21 [History Last Taken Unknown] docusate sodium 100 mg PO DAILY 02/11/21 [History Last Taken 02/22/21] escitalopram oxalate 5 mg PO DAILY 02/11/21 [History Last Taken 02/22/21] melatonin 3 mg PO QHS PRN PRN #1 tab 02/14/21 [Rx Last Taken Unknown] nystatin [Nyamyc] 1 applic TOPICAL TID #0 g 02/14/21 [Rx Last Taken Unknown] phenazopyridine [Azo Urinary Pain Relief] 95 mg PO TID #5 tab 02/14/21 [Rx Last Taken Unknown] quetiapine 25 mg PO QHS #0 tab 02/14/21 [Rx Last Taken Unknown] tamsulosin 0.4 mg PO DAILY@1730 #0 cap 02/14/21 [Rx Last Taken 02/22/21] insulin NPH isoph U-100 human [Humulin N NPH Insulin KwikPen] 40 unit SUBCUT QHS 02/23/21 [History Last Taken 02/22/21] insulin NPH isoph U-100 human [Humulin N NPH Insulin KwikPen] 60 unit SUBCUT AIDA AKFAST 02/23/21 [History Last Taken 02/22/21] insulin lispro [Humalog KwikPen Insulin] 20 unit SUBCUT BID 02/23/21 [History Last Taken 02/22/21] phenobarbital 32.4 mg PO TID@0100,0900,1700 02/23/21 [History Last Taken 02/22/21] Allergy/AdvReac Type Severity Reaction Status Date / Time ciprofloxacin Allergy Unknown Verified 02/11/21 14:10 hydrochlorothiazide Allergy Unknown Verified 02/11/21 14:10 pentazocine [From Talwin] Allergy Unknown Verified 02/11/21 14:10 acetaminophen [From Percocet] AdvReac PT UNSURE Verified 02/12/21 17:55 OF REACTION carvedilol AdvReac Rash Verified 02/11/21 14:10 oxycodone [From Percocet] AdvReac PT UNSURE Verified 02/11/21 14:10 OF REACTION Family History Other Cancer Surgical History H/O shoulder surgery History of cholecystectomy Social History Smoking Status: Never smoker ROS Review of Systems ROS Unobtainable: Denies due to encephalopathy, due to endotracheal tube, due to mental condition, due to mental status or other Constitutional Constitutional: Denies anorexia, change in weight, chills, fatigue, fever(s), malaise, night sweats, weakness or other Eyes Eyes: Reports change in vision bilateral (Patient complained of complete blindness this morning this has now resolved and now she is complaining of decreased peripheral vision); Denies blurry vision, change in eye color, discharge from eye(s), double vision, erythema, eye pain, loss of vision or other ENT HEENT: Denies abnormal hearing, dysphagia, ear pain, epistaxis, headache(s), hearing loss, nasal congestion, nasal discharge, post nasal drip, sinus p ressure, sore throat or other Cardiovascular Cardiovascular: Denies chest pain, claudication, dyspnea on exertion, edema, lightheadedness, orthopnea, palpitations, paroxysmal nocturnal dyspnea, rapid heart rate, syncope or other Respiratory/Chest Respiratory/Chest: Denies cough, dyspnea, excessive phlegm production, hemoptysis, productive cough, shortness of breath at rest, shortness of breath with exertion, wheezing or other Gastrointestinal Gastrointestinal: Denies abdominal pain, coffee ground emesis, constipation, diarrhea, dyspepsia, hematemesis, hematochezia, loose stools, melena, nausea, vomiting or other Genitourinary Genitourinary: Denies burning urination, difficulty urinating, dysuria, he maturia, nocturia, urinary frequency, urinary hesitancy, urinary incontinence, urinary urgency or other Musculoskeletal Musculoskeletal: Denies arthralgias, back pain, joint pain, joint stiffness, joint swelling, myalgias, neck pain or other Neurologic Neurologic: Reports seizures; Denies abnormal gait, abnormal speech, confusion, disequilibrium, dizziness, focal weakness, headache(s), numbness, paresthesias, seizure-like activity, syncope, tingling, tremor(s) or other Psychiatric Psychiatric: Reports anxiety, depression and other Details: Per family her anxiety and depression has been severe lately Endocrine Endocrinology: Denies change in body appearance, cold intolerance, excessive sweating, heat intolerance, polydipsia, polyuria or other Allergic/Immunologic Allergic/Immunologic: Denies rhinitis, hives, eczemia, asthma or other Vital Signs Vital Signs Vital Signs: 02/23/21 10:43 02/23/21 10:51 02/23/21 11:41 Temperature 98.2 F Temperature Source Oral Pulse Rate 67 68 Respiratory Rate 19 H 15 Blood Pressure 165/66 H 138/85 H Blood Pressure Mean 99 102 Pulse Ox 98 100 95 Oxygen Delivery Method Room Air Room Air Room Air 02/23/21 12:30 02/23/21 13:32 02/23/21 14:00 Temperature Temperature Source Pulse Rate 68 68 72 Respiratory Rate 13 21 H 14 Blood Pressure 164/82 H 204/77 H 193/96 H Blood Pressure Mean 109 119 128 Pulse Ox 99 100 95 Oxygen Delivery Method Room Air Room Air Room Air 02/23/21 14:30 02/23/21 14:36 Temperature 97.2 F L 97.2 F L Temperature Source Temporal Temporal Pulse Rate 74 74 Respiratory Rate 18 18 Blood Pressure 169/107 H 169/107 H Blood Pressure Mean 127 127 Pulse Ox 99 99 Oxygen Delivery Method Room Air Room Air Weight Weight: 109 kg Body Mass Index (BMI) 41.2 Physical Exam Const alert, oriented x3 and well nourished Constitutional Narrative: Morbidly obese, extremely anxious white female who appears much older than stated age, sitting in a chair in the room, [id number] at bedside, nontoxic-appearing but appears in emotional distress General Appearance: cooperative HEENT normocephalic, head/scalp atraumatic, hearing grossly normal bilaterally, moist oral mucous membranes and oropharynx normal; Negative for dentition normal Mouth: oral and palatal mucosa normal Eyes PERRL, EOMs intact bilaterally and conjunctivae normal Neck no lymphadenopathy, supple, no JVD and no carotid bruits Resp normal respiratory effort, no retractions, no use of accessory muscles and clear to auscultation bilaterally Auscultation: Negative for crackles, rales, rhonchi or wheezes Cardio regular rate, regular rhythm, S1 normal heart sound, S2 normal heart sound, no murmurs, no rub, no gallops, no clicks and no JVD GI normal to inspection, nondistended, normoactive bowel sounds, soft to palpation, non-tender and non-distended GI Narrative: Morbidly obese Extremity no clubbing, cyanosis or edema Peripheral Pulses: Yes pulses 2+ throughout Skin no wounds, skin turgor normal, no jaundice, no petechiae and no mottling Skin Narrative: Skin folds with yeast Neuro oriented x3, CN's II-XII intact bilaterally, moves all extremities and no focal motor deficits Neuro Narrative: Bilateral temporal hemianopsia, generalized weakness but no focal deficit Sensorium / Orientation: awake, alert, oriented to person, oriented to place and oriented to time Psych Psych Narrative: Patient is markedly depressed and tearful with significant anxiety Mood & Affect: depressed and anxious Results Lab / Micro Data Result Diagrams: 02/23/21 10:55 02/23/21 10:55 Labs: Laboratory Results - last 24 hr 02/23/21 10:55: WBC 6.7, RBC 3.65 L, Hgb 10.9 L, Hct 32.6 L, MCV 89.3, MCH 29.9, MCHC 33.4, RDW Std Deviation 40.2, RDW Coeff of Linda 12.3, Plt Count 349, MPV 10.9, Immature Gran % (Auto) 0.300, Neut % (Auto) 59.0, Lymph % (Auto) 25.5, M abbi % (Auto) 9.3, Eos % (Auto) 4.5, Baso % (Auto) 1.4 H, Absolute Neuts (auto) 3.9, Absolute Lymphs (auto) 1.70, Nucleated RBC % 0 02/23/21 10:55: PT 16.0 H, INR 1.4, APTT 28.9 02/23/21 10:55: Sodium 135 L, Potassium 3.9, Chloride 104, Carbon Dioxide 24.0, Anion Gap 7, BUN 9, Creatinine 0.74, Estim Creat Clear Calc 45.20, Est GFR (MDRD) Af Amer 100, Est GFR (MDRD) Non-Af 83, BUN/Creatinine Ratio 12.2, Glucose 129 H, Calcium 8.4 L, Troponin I High Sens 6.1 02/23/21 13:24: POC Glucose 170 H Radiology Impression Brain CT 02/23/21 10:43 IMPRESSION: Chronic involutional changes of the brain. 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 N.B. : The above Results were Read Back by Albert Perkins MD to Chinmay Durán and understanding confirmed on 02/23/2021 10:56:22 (ET). Electronically Signed: Albert Perkins MD at 10:58 EDT , Service support , ADDENDUM: 02/23/21 1105 IMPRESSION: Chronic involutional changes of the brain. 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 N.B. : The above Results were Read Back by Albert Perkins MD to Chinmay Durán and understanding confirmed on 02/23/2021 10:56:22 (ET). Electronically Signed: Albert Perkins MD at 10:58 EDT , Service support , Head/Neck CTA 02/23/21 10:43 IMPRESSION: Normal CTA Head and neck with contrast. N.B. : The above Results were Read Back by Albert Perkins MD to Chinmay Durán and understanding confirmed on 02/23/2021 11:01:21 (ET). Electronically Signed: Albert Perkins MD at 11:02 EDT , Service support , ADDENDUM: 02/23/21 1109 IMPRESSION: Normal CTA Head and neck with contrast. N.B. : The above Results were Read Back by Albert Perkins MD to Chinmay Durán and understanding confirmed on 02/23/2021 11:01:21 (ET). Electronically Signed: Albert Perkins MD at 11:02 EDT , Service support , Chest X-Ray 02/23/21 11:25 IMPRESSION: No acute abnormality is seen. Electronically Signed: Albert Perkins MD at 11:59 EDT , Service support , Assessment & Plan Assessment/Plan (1) Vision loss: (2) Anxiety: (3) Depression: PLAN: Acute bitemporal hemianopsia -Physical exam is somewhat inconsistent -Recent stroke and has tunnel vision at baseline per discussion with [id number] -This morning patient woke up and stated she had complete visual loss -ER physician had left homonymous hemianopsia on his exam -CT head negative, CTA head and neck negative -Recent echo shows an EF of 50 to 55% with apical hypokinesis that appeared chr onic--> 11/26/2020 -No need to repeat echo -Repeat lipids -A1c was elevated in November no need to repeat -Continue aspirin and Plavix -MRI in a.m. -PT/OT -Stroke order set Severe anxiety and depression -Start as needed Ativan 1 mg every 8 hours -Start Zoloft 75 mg nightly -Continue Seroquel but increase from 25 to 50 mg nightly -Patient has psych follow-up as an outpatient already -Takes only Seroquel at baseline -Was recently started on Lexapro but has not started the medication as of yet Mild anemia -Hemoglobin is down slightly from her recent admissions where it was approximately 11-12 -Repeat CBC in a.m. -No signs of acute blood loss -If down further we will check guaiac stool as patient is on dual antiplatelet therapy Mild hyponatremia Patient is not on any medications that should cause this -Has not yet started SSRI -Sodium was 135 -Repeat in a.m. -Watch closely with the initiation of Zoloft DM-2 uncontrolled -A1c was 10.2 on 12/01/2019 1 repeat lipids repeat lipids -Cardiac carb controlled diet -Continue home insulin regimen--> NPH 60 units at breakfast and 40 units at at bedtime and lispro 20 units twice daily -May need to address lispro as this is odd that she only has it twice daily rather than 3 times daily -Accu-Cheks before meals and at bedtime -If elevated will add SSI Hypertension -Continue home medication Hyperlipidemia -Continue home statin Recent right posterior cerebral artery infarct -Residual deficits are central visual field loss -Patient remains on dual antiplatelet therapy -Continue to modify risk factors as able -PT and OT to see Seizure disorder -Continue home medication--> Lamictal, Topamax, phenobarbital -Check a.m. phenobarb level GERD -Continue PPI Morbid obesity -Recommend weight loss -Complicates overall treatment, prognosis, and outcomes DVT prophylaxis -Enoxaparin CODE STATUS -Full code Charges/Coding Visit Charges Inpatient E&M: 61891 Init Hosp L3
[2021-02-23 15:10] LABS: Troponin-I HS 7.2 pg/mL (3.0-53.7)
--- NOTE | 2021-02-23 15:15 | NURSING ---
PT VERY UPSET. I WANT TO GO HOME. I HAD THIS SAME BED LAST TIME AND I AM NOT STAYING. PT ASSISTED TO SIT UP IN A CHAIR. I HELPED HER CALL HER SON WHO IS HER POA. PT AND SON EDUCATED ON STROKE AND NEED TO STAY IN HOSPITAL FOR MONITORING. BOTH VERBALIZED UNDERSTANDING. PT AND SON AGREE PT WILL GO HOME. SON REQUESTED AMA PAPERS NATTY. PAPERS PRINTED AND SIGNEDBY PATIENT. SON WILL BE HERE WITH IN THE HOUR TO PICK HER UP.
--- NOTE | 2021-02-23 16:24 | NURSING ---
Patient left AMA after signing AMA papers, she was picked up by her son
--- NOTE | 2021-02-23 18:00 | PCM.HOSP.N ---
Hospitalist Note Patient was admitted this afternoon and upon getting to the floor she decided to leave AGAINST MEDICAL ADVICE. Per nursing discussion with her son they have taken her to multiple hospitals for similar symptoms which include visual changes and she has left multiple hospitals AGAINST MEDICAL ADVICE. I would advise against readmission unless she has a marked change in status. Her baseline visual changes include tunnel vision. Please see H&P for further details.
== END 2021-02-23 16:16 | disposition left against medical advice (07) | DRG 123 ==
LOC: ED 12:14 → PCU 14:52
PROVIDERS: Admitting Provider Internal Medicine; Emergency Provider Student in an Organized Health Care Education/Training Program; Visit Provider Internal Medicine
DX: H53.47 Heteronymous bilateral field defects (principal); E87.1 Hypo-osmolality and hyponatremia; Z68.41 Body mass index [BMI] 40.0-44.9, adult; I69.398 Other sequelae of cerebral infarction; F32.9 Major depressive disorder, single episode, unspecified; F41.9 Anxiety disorder, unspecified; D64.9 Anemia, unspecified; E11.9 Type 2 diabetes mellitus without complications; I10 Essential (primary) hypertension; E78.5 Hyperlipidemia, unspecified; K21.9 Gastro-esophageal reflux disease without esophagitis; G40.909 Epilepsy, unspecified, not intractable, without status epilepticus; E66.01 Morbid (severe) obesity due to excess calories; Z79.82 Long term (current) use of aspirin; Z79.4 Long term (current) use of insulin
CPT/HCPCS: 70450; 70496; 70498; 71045; 80048; 82962; 84484; 85025; 85610; 85730; 93005; 99285; Q9967; A4216

== ENCOUNTER 2021-03-13 18:25 | Emergency (ER) | payer OTHER, SELFPAY ==
[2021-02-23 10:51] VITALS: BMI 41.2
[2021-03-13 18:27] VITALS: BP 167/69; PULSE 63; RESP 16; TEMP 36.4; O2SAT 100; BMI 38.2
[2021-03-13 18:32] VITALS: BP 167/69; PULSE 63; RESP 18; TEMP 36.4; O2SAT 100
--- NOTE | 2021-03-13 18:56 | EKG12_ITS ---
Test Reason : MHC Blood Pressure : / mmHG Vent. Rate : 069 BPM Atrial Rate : 069 BPM P-R Int : 200 ms QRS Dur : 122 ms QT Int : 474 ms P-R-T Axes : 037 -48 062 degrees QTc Int : 507 ms Normal sinus rhythm Left axis deviation Left bundle branch block Abnormal ECG Confirmed by BECCA ALEJANDRO, GEOVANNA ([id number]), slot editor CELINA RODRIGUES ([id number]) on 03/16/2021 12:49:27 PM Referred By: MAXINE Confirmed By:GEOVANNA HUDSON MD
[2021-03-13 19:43] LABS: Absolute Neutrophil Count 6.5 X10^3/uL (2.0-7.7); Basophil# 0.09 X10^3/uL; Eosinophil# 0.18 X10^3/uL; Hematocrit 37.3 % (37-47); Hemoglobin 12.5 g/dL (12.0-15.0); Lymphocyte % 19.9 % (19-41); Mean Corp Hgb Conc 33.5 g/dL (32-36); Mean Corpuscular Hgb 30.3 pg (27.0-32.0); Mean Corpuscular Volume 90.3 fL (81-99); Mean Platelet Vol. 10.1 fl (6.2-12.0); Monocyte# 0.47 X10^3/uL; Monocyte% 5.2 % (0-10); NRBC Flagged by Analyzer 0 % (0-5); Neutrophil # 6.47 X10^3/uL (2.7-7.7); Neutrophil % 71.5 % (47-70); Platelet Count 437 K/mm3 (150-450); RBC Distribution Width CV 12.1 % (11.6-14.6); RBC Distribution Width SD 39.9 fl (35.1-43.9); Red Blood Count 4.13 M/mm3 (4.2-5.4); White Blood Count 9.1 K/mm3 (4.4-11.0)
[2021-03-13 19:52] LABS: Anion Gap 5 (5-15); BUN 15 mg/dL (7-18); BUN/Creat Ratio 22.7 RATIO (10-20); Calcium,Total 9.1 mg/dL (8.5-10.1); Chloride 100 mmol/L (98-107); Creatinine, Serum 0.66 mg/dL (0.55-1.02); EST Glomerular Filtration Rate 94 mL/min (>60); Est Glom Filt Rate - Afr Amer 114 mL/min (>60); Glucose 199 mg/dL (74-106); Potassium 4.1 mmol/L (3.5-5.1); Sodium Level 134 mmol/L (136-145)
[2021-03-13 20:54] LABS: Bacteria 0 SEEN /hpf (None Seen); Mucous, Urine 0 SEEN /hpf (<or=2+); Red Blood Cells-Urine 0 SEEN /hpf (0-5); Squamous Epithelial Cells - UA 0 SEEN /hpf (5-10); White Blood Cells 0 SEEN /hpf (0-5)
[2021-03-13 20:57] LABS: Color, Urine Yellow (Yellow); Glucose, Dipstick Normal (Normal); Ketone-Dipstick Negative (Negative); Leukocyte Esterase-Dipstick 25 /ul (Negative); Nitrite-Dipstick Negative (Negative); Occult Blood-Urine Negative /ul (Negative); Protein-Dipstick 30 mg/dl (Negative); Urine Bilirubin Dipstick Negative (Negative); Urine Clarity Clear (Clear); Urine Urobilinogen Normal (Normal)
--- NOTE | 2021-03-13 20:58 | CT_ITS ---
STUDY: CT ABDOMEN AND PELVIS WITHOUT CONTRAST REASON FOR EXAM: Female, 70 years old. Abdominal pain. RADIATION DOSAGE (If Supplied By Facility): CTDIvol = ( 22.55 ) mGy, DLP = ( 1211.07 ) mGycm TECHNIQUE: Transaxial images were obtained from the dome of the diaphragm to the symphysis pubis without oral contrast, and without intravenous contrast. Sagittal and coronal images were reconstructed. Individualized dose optimization techniques were used for this CT. COMPARISON: 07/19/2020. FINDINGS: The visualized lung bases are unremarkable. The visualized portions of the heart are within normal limits. Mitral valve replacement Normal liver. There are surgical clips in the gallbladder fossa consistent with a prior cholecystectomy. Normal spleen. Normal pancreas. Normal bilateral adrenal glands. The right kidney is normal in size and cortical defect mass. There is mild hydronephrosis and ureteral dilatation pelvic brim. The ureter is of normal diameter beyond this point. There is no filling defect. Question compression against the posterior pelvic wall by the enlarged urinary bladder. Stable cyst in the lower pole. Otherwise normal left kidney.. Normal left ureter. Normal visualized stomach. Normal small intestine. Normal colon. The appendix is visualized and appears normal. There is diffuse atherosclerotic calcification of the abdominal aorta, without a demonstrated aneurysm. Normal inferior vena cava. Normal retroperitoneum. The urinary bladder is markedly distended. There is no mass or filling defect. Unremarkable vaginal cuff. There is no pelvic lymphadenopathy. No free air or free fluid is seen within the peritoneal cavity. Small umbilical arterial omental fat. Diffuse degenerative changes of the lumbar spine and hips. CT/Abdomen/Pelvis without Cont IMPRESSION: 1. Mild fullness of the right renal collecting system and proximal ureter. This is thought to be due to compression of the ureter against the pelvic brim by the enlarged bladder. 2. Marked distention of the urinary bladder without mass or obvious obstruction. 3. No other major interval change. Electronically Signed: Leroy Conklin DO at 22:00 EDT Tel [phone], Service support ,
[2021-03-13 21:06] VITALS: RESP 16
--- NOTE | 2021-03-13 21:07 | RAD_ITS ---
HISTORY: MENTAL HEALTH EXAMINATION/TECHNIQUE: XR Chest 1 View: Portable upright AP chest x-ray COMPARISON: 02/23/21 FINDINGS: LINES/DEVICES: None. LUNGS: No consolidation, edema or effusion. No pneumothorax. MEDIASTINUM AND CARDIOVASCULAR STRUCTURES: Cardiac silhouette not enlarged. Central airways and mediastinal contour are unremarkable. BONES AND SOFT TISSUES: No acute bony abnormalities. Right shoulder prosthesis. RAD/Chest 1 View (Portable) IMPRESSION: No radiographic evidence of acute cardiopulmonary disease. at 2202 Reported and signed by: Jamar Jacobs MD Electronically Signed: Jamar Jacobs MD at 22:01 EDT Tel , Service support ,
[2021-03-13 21:14] LABS: Amphetamine Urine VISTA NEGATIVE (<1000 ng/mL); Barbiturate Urine VISTA POSITIVE (< 200 ng/mL); Benzodiazepine Urine VISTA NEGATIVE (< 200 ng/mL); Cocaine Urine VISTA NEGATIVE (< 300 ng/mL); Ecstacy Urine VISTA NEGATIVE (< 500 ng/mL); Methadone Urine VISTA NEGATIVE (< 300 ng/mL); PCP Urine VISTA NEGATIVE (< 25 ng/mL); THC Urine VISTA NEGATIVE (< 50 ng/mL); Vista UDS pH Range 7
--- NOTE | 2021-03-13 21:43 | ED.RN ---
CALLED [facility] TO ADV[facility] THE NEED TO ADMIT THIS PT, SPOKE TO CHECO IN THE TRANSFER CENTER. INFORMATION GIVEN AND FAXED TO [phone] REQUESTED
--- NOTE | 2021-03-13 22:24 | ED.RN ---
CALLED [facility] TO REFER FOR PSYCH PLACEMENT, SPOKE TO PRANAY AND FAXED THE CHART
[2021-03-13 22:58] VITALS: RESP 18
--- NOTE | 2021-03-13 22:58 | EDS_ITS ---
HPI HPI - Psych History of Present Illness Chief Complaint: Mental Health Narrative Narrative: Patient is presenting with mental health concerns, apparently she has been quite depressed since her last stroke, she has thought about hurting yourself and told her daughter that she cut her wrist and that she should have gone deeper. She [facility] today and was sent here. In the meantime she developed watery diarrhea. She denies any fevers or chills, no abdominal pain. No recent antibiotics. PFSH PFSH Medical History Asthma Chronic pain Depression Diabetes mellitus Diabetes mellitus GERD (gastroesophageal reflux disease) Kidney stones Migraines Non-smoker Rheumatoid arthritis Seizures Stroke/cerebrovascular accident TIA (transient ischemic attack) Home Medications omeprazole 32.5 mg PO TID 12/19/13 [History Last Taken 02/22/21] topiramate 50 mg PO BID 12/19/13 [History Last Taken 02/22/21] albuterol sulfate 2.5 mg INHALATION Q4H PRN PRN 05/09/14 [History Last Taken Unknown] lamotrigine 300 mg PO BID 07/22/20 [History Last Taken 02/22/21] aspirin 81 mg PO DAILY@0800 #30 tab.chew 11/30/20 [Rx Last Taken 02/22/21] carvedilol 12.5 mg PO BID #60 tablet 11/30/20 [Rx Last Taken 02/22/21] clopidogrel 75 mg PO DAILY #30 tablet 11/30/20 [Rx Last Taken 02/22/21] lisinopril 10 mg PO BID #0 11/30/20 [Rx Last Taken 02/22/21] atorvastatin 80 mg PO QHS #30 tablet 12/02/20 [Rx Last Taken 02/22/21] cetirizine 10 mg PO DAILY 01/21/21 [History Last Taken 02/22/21] cholecalciferol (vitamin D3) 2,000 mcg PO DAILY 01/21/21 [History Last Taken 02/22/21] fluticasone propionate 1 spray INTRANASAL DAILY 01/21/21 [History Last Taken Unknown] docusate sodium 100 mg PO DAILY 02/11/21 [History Last Taken 02/22/21] escitalopram oxalate 5 mg PO DAILY 02/11/21 [History Last Taken 02/22/21] insulin NPH isoph U-100 human [Humulin N NPH Insulin KwikPen] 20 unit SUBCUT QHS 02/23/21 [History Last Taken 02/22/21] insulin NPH isoph U-100 human [Humulin N NPH Insulin KwikPen] 60 unit SUBCUT BREAKFAST 02/23/21 [History Last Taken 02/22/21] insulin lispro [Humalog KwikPen Insulin] 20 unit SUBCUT BID 02/23/21 [History Last Taken 02/22/21] phenobarbital 32.4 mg PO TID@0100,0900,1700 02/23/21 [History Last Taken 02/22/21] budesonide-formoterol 1 puff INHALATION BID 03/13/21 [History Last Taken Unknown] Allergy/AdvReac Type Severity Reaction Status Date / Time ciprofloxacin Allergy Unknown Verified 02/11/21 14:10 hydrochlorothiazide Allergy Unknown Verified 02/11/21 14:10 pentazocine [From Talwin] Allergy Unknown Verified 02/11/21 14:10 acetaminophen [From Percocet] AdvReac PT UNSURE Verified 02/12/21 17:55 OF REACTION carvedilol AdvReac Rash Verified 02/11/21 14:10 oxycodone [From Percocet] AdvReac PT UNSURE Verified 02/11/21 14:10 OF REACTION Family History Other Cancer Surgical History H/O shoulder surgery History of cholecystectomy Social History Smoking Status: Never smoker ROS ROS ED ROS Narrative Past medical history: Reviewed, includes CVA, history of seizures, hypertension, diabetes, hyperlipidemia Medications: Reviewed Social history: Noncontributory Review of systems: All systems negative except as indicated General: No fever Eyes: No visual changes ENT: No upper airway congestion, normal voice Neck: No neck pain Cardiovascular: No chest pain Respiratory: No shortness of breath or cough Gastrointestinal: Diarrhea as in HPI Genitourinary: No dysuria Musculoskeletal: Denies myalgias no difficulty with ambulation Skin: No rash Neurological: No memory loss, confusion or any focal weakness Psych: Suicidal ideations Hematologic: No easy bleeding or easy bruising EXAM Physical Exam Narrative Exam Narrative: Physical exam General: Well nourished, Well developed, No Acute Distress Head: Normocephalic, Atraumatic Eyes: Conjunctiva not pale ENT: Slightly dry mucous membranes Neck: Supple, Nontender, No lymphadenopathy Cardiovascular: Regular rate, Regular rhythm Respiratory: No distress, CTA bilaterally Abdomen: Soft, mild left lower quadrant abdominal pain no guarding or rebound. Back: Nontender, Normal Inspection. Negative for: CVA tenderness Extremities: Nontender, No edema Skin: Normal color, No rash Neurological: Alert, Normal Strength, Normal Sensation Psychological: Patient has an overall normal affect. She tells me that she has thought about hurting herself but this has decreased. Const Vital Signs: 03/13/21 18:27 03/13/21 18:32 03/13/21 21:06 Temperature 97.5 F L 97.5 F L Temperature Source Temporal Temporal Pulse Rate 63 63 Respiratory Rate 16 18 16 Blood Pressure 167/69 H 167/69 H Blood Pressure Mean 101 101 Pulse Ox 100 100 Oxygen Delivery Method Room Air Room Air 03/13/21 22:58 Temperature Temperature Source Pulse Rate Respiratory Rate 18 Blood Pressure Blood Pressure Mean Pulse Ox Oxygen Delivery Method MDM MDM MDM Narrative Medical decision making narrative: Patient work-up is overall unremarkable. I did send stool studies but I did not have them back yet. I am worried especially after talking to the daughter since the daughter confesses to me that the patient has thought about suicide quite often especially since her stroke, she thinks she will be forgiven and has been quite depressed recently. [facility]. If not we will get our psychiatric liaison. Lab Data Labs: Laboratory Results - last 24 hr 03/13/21 03/13/21 03/13/21 19:12 19:12 19:12 WBC 9.1 RBC 4.13 L Hgb 12.5 Hct 37.3 MCV 90.3 MCH 30.3 MCHC 33.5 RDW Std Deviation 39.9 RDW Coeff of Linda 12.1 Plt Count 437 MPV 10.1 Immature Gran % (Auto) 0.400 Neut % (Auto) 71.5 H Lymph % (Auto) 19.9 [place] % (Auto) 5.2 Eos % (Auto) 2.0 Baso % (Auto) 1.0 Absolute Neuts (auto) 6.5 Absolute Lymphs (auto) 1.80 Nucleated RBC % 0 Sodium 134 L Potassium 4.1 Chloride 100 Carbon Dioxide 29.0 Anion Gap 5 BUN 15 Creatinine 0.66 Estim Creat Clear Calc 49.00 Est GFR (MDRD) Af Amer 114 Est GFR (MDRD) Non-Af 94 BUN/Creatinine Ratio 22.7 H Glucose 199 H Calcium 9.1 Urine Color Urine Clarity Urine pH Ur Specific Lawrence Urine Protein Urine Glucose (UA) Urine Ketones Urine Occult Blood Urine Nitrite Urine Bilirubin Urine Urobilinogen Ur Leukocyte Esterase Urine RBC Urine WBC Ur Squamous Epith Cells Urine Bacteria Urine Mucus Urine Opiates Screen Urine Methadone Screen Ur Barbiturates Screen Ur Phencyclidine Scrn Ur Amphetamines Screen U Methamphetamin-MDMA U Benzodiazepines Scrn Urine Cocaine Screen U Cannabinoids Screen Ur Drug Screen Comment Ethyl Alcohol 4.0 03/13/21 03/13/21 20:43 20:43 WBC RBC Hgb Hct MCV MCH MCHC RDW Std Deviation RDW Coeff of Linda Plt Count MPV Immature Gran % (Auto) Neut % (Auto) Lymph % (Auto) [place] % (Auto) Eos % (Auto) Baso % (Auto) Absolute Neuts (auto) Absolute Lymphs (auto) Nucleated RBC % Sodium Potassium Chloride Carbon Dioxide Anion Gap BUN Creatinine Estim Creat Clear Calc Est GFR (MDRD) Af Amer Est GFR (MDRD) Non-Af BUN/Creatinine Ratio Glucose Calcium Urine Color Yellow Urine Clarity Clear Urine pH 7.0 Ur Specific Lawrence 1.010 Urine Protein 30 H Urine Glucose (UA) Normal Urine Ketones Negative Urine Occult Blood Negative Urine Nitrite Negative Urine Bilirubin Negative Urine Urobilinogen Normal Ur Leukocyte Esterase 25 H Urine RBC 0 SEEN Urine WBC 0 SEEN Ur Squamous Epith Cells 0 SEEN Urine Bacteria 0 SEEN Urine Mucus 0 SEEN Urine Opiates Screen NEGATIVE Urine Methadone Screen NEGATIVE Ur Barbiturates Screen POSITIVE H Ur Phencyclidine Scrn NEGATIVE Ur Amphetamines Screen NEGATIVE U Methamphetamin-MDMA NEGATIVE U Benzodiazepines Scrn NEGATIVE Urine Cocaine Screen NEGATIVE U Cannabinoids Screen NEGATIVE Ur Drug Screen Comment Ethyl Alcohol Radiography Diagnostic Testing: Radiology Impression Abdomen/Pelvis CT 03/13/21 20:58 IMPRESSION: 1. Mild fullness of the right renal collecting system and proximal ureter. This is thought to be due to compression of the ureter against the pelvic brim by the enlarged bladder. 2. Marked distention of the urinary bladder without mass or obvious obstruction. 3. No other major interval change. Electronically Signed: Leroy Conklin DO at 22:00 EDT Tel [phone], Service support , Chest X-Ray 03/13/21 21:07 IMPRESSION: No radiographic evidence of acute cardiopulmonary disease. at 2202 Reported and signed by: Jamar Jacobs MD Electronically Signed: Jamar Jacobs MD at 22:01 EDT Tel , Service support , Discharge Plan Triage Chief Complaint: Mental Health ED Provider: Yovanny Cameron Dx/Rx/DC Orders Prescriptions: No Action omeprazole 20 MG capsule 32.5 mg PO TID RF: 0 topiramate 50 MG tablet 50 mg PO BID RF: 0 albuterol sulfate 2.5 MG/3 ML solution for nebulization 2.5 mg inhalation Q4H PRN PRN (Reason: Wheezing) RF: 0 lamotrigine 150 MG tablet 300 mg PO BID RF: 0 carvedilol 12.5 MG tablet 12.5 mg PO BID Qty: 60 RF: 0 clopidogrel 75 MG tablet 75 mg PO DAILY Qty: 30 RF: 0 aspirin 81 MG tablet,chewable 81 mg PO DAILY@0800 Qty: 30 RF: 2 lisinopril 10 MG tablet 10 mg PO BID Qty: 0 RF: 0 atorvastatin 80 MG tablet 80 mg PO QHS Qty: 30 RF: 2 cetirizine 10 mg Tablet 10 mg PO DAILY RF: 0 fluticasone propionate 50 mcg/actuation [place],Suspension 1 spray INTRANASAL DAILY RF: 0 cholecalciferol (vitamin D3) 50 mcg (2,000 unit) Tablet 2,000 mcg PO DAILY RF: 0 docusate sodium 50 mg Capsule 100 mg PO DAILY RF: 0 escitalopram oxalate 5 mg Tablet 5 mg PO DAILY RF: 0 phenobarbital 32.4 mg Tablet 32.4 mg PO TID@0100,0900,1700 RF: 0 Humulin N NPH Insulin KwikPen 100 unit/mL (3 mL) Insulin Pen 20 unit SUBCUT QHS RF: 0 insulin lispro [Humalog KwikPen Insulin] 100 unit/mL insulin pen 20 unit subcut BID RF: 0 Humulin N NPH Insulin KwikPen 100 unit/mL (3 mL) insulin pen 60 unit subcut BREAKFAST RF: 0 budesonide-formoterol 80-4.5 mcg/actuation Hfa Aerosol Inhaler 1 puff INHALATION BID RF: 0 [facility] [place]
[2021-03-14] VITALS (8 sets, daily range): BP systolic 142–181; BP diastolic 62–85; PULSE 71–86; RESP 14–18; O2SAT 96–98
--- NOTE | 2021-03-14 | ED.RN ---
CALLED [facility], SPOKE TO AUDREY, BED CONTROL, THIS PT WILL NEED TO WAIT TILL MORNING FOR REFERRAL
[2021-03-14] MEDS: LORazepam 2 MG/ML Syringe 1 MG IV (00:52)
[2021-03-14 07:20] LABS: Bedside Glucose 211 mg/dL (70-110)
--- NOTE | 2021-03-14 09:08 | ED.RN ---
[facility] [phone]. emergency contact.
--- NOTE | 2021-03-14 09:18 | NURSING ---
CALLED [facility], TALKED TO MELONY IN TRANSFER LINE. NO BEDS
--- NOTE | 2021-03-14 09:19 | NURSING ---
CALLED [facility], TALKED TO AUDREY. WILL FAX CHART TO HER
--- NOTE | 2021-03-14 09:39 | ED.RN ---
[facility] NO PSYCHIATRIC BEDS AVAILABLE AT THE [facility]. THEY CANNOT GIVE PERMISSION TO ADMIT SOMEWHERE ELSE BUT GO AHEAD AND DO WHAT IS BEST FOR THE PATIENT
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
[2021-03-14] MEDS: Acetaminophen 500 MG Tablet 1000 MG PO (13:07)
[2021-03-14 14:31] LABS: Bedside Glucose 127 mg/dL (70-110)
--- NOTE | 2021-03-14 16:47 | CM.ED ---
BRANDI note BRANDI spoke to Bibiana Silva. She said that their acute inpatient psych has mattress on floor and no beds. She said that they feel that patient is not best suited at the [place]. She said that under the [place] act patient can go anywhere as there are no beds and then the hospital has to notify the [facility] in 72 hours of placement. Bibiana said that patient can be placed anywhere for beds. The [place] national hotline to update where patient will go is . AT 1431 BRANDI received message from Hodan at [facility]. They have no beds. Her contact number is [phone] ext [phone] BRANDI called Hodan at the [place] and she said that placement could be made under 7203 and not the [place] Act which stated that patient could go to any psych facility in an emergency settingand he billing would be done under 7203. She said that when patient gets admitted to call them and advise the [facility] of her placement and the billing will get done when patient was admitted. Patient wanted to speak to medical social worker. BRANDI went in and patient was asleep. BRANDI will follow [facility]
[2021-03-14] MEDS: Ibuprofen 600 MG Tablet PO (20:07)
--- NOTE | 2021-03-14 20:47 | ED.RN ---
PT'S SON SUKHWINDER JOHNSON WAS CONTACTED AND INFORMED OF PT'S DISPOSITION TO [facility]
[2021-03-14] MEDS: Phenobarbital 32.4 MG Tablet PO (21:07)
[2021-03-14] MEDS: Topiramate 50 MG Tablet PO (21:07)
[2021-03-14] MEDS: Clopidogrel Bisulfate 75 MG Tablet PO (21:07)
[2021-03-14] MEDS: Lisinopril 10 MG Tablet PO (21:07)
[2021-03-14] MEDS: lamoTRIgine 150 MG Tablet PO (21:07)
[2021-03-14] MEDS: Escitalopram Oxalate 10 MG Tablet 5 MG PO (21:07)
--- NOTE | 2021-03-14 21:14 | CM.ED ---
BRANDI Note As staff at [facility] reports no VA beds at 2:31 this date this automobile service writer pursued other placements. BRANDI sent faxed referral to [facility] and [facility]. BRANDI advised staff that this patient was VA. BRANDI received call from [facility]. They inquired about the barbiturates being positive and the MD noted it was related to phenobarbitual and prescribed which he documented for [facility]. Patient was then accepted at [facility]. BRANDI called [facility] and advised that patient had been accepted at [facility] and thanked them for consideration. BRANDI updated patient's son and daughter in law, Miguel Ángel and Denise, that patient was admitted to [facility]. Discussed the process of daily evaluation by staff to see patient's progress. Miguel Ángel voiced appreciation. BRANDI received call from [facility]. Patient was accepted by [facility]. The accepting MD was Dr. Noreen Cannon and the RN to RN was [phone]. RN, charge operator and MD updated. BRANDI called [facility] and left voice mail on [employer] voice mail [phone] advising that patient was admitted to [facility] as there were no [facility] beds.BRANDI provided phone number for [facility]. BRANDI called [place] National Hotline and spoke to Graeme. Graeme said that the receiving facility needs to call tomorrow to notify that patient is a [facility] patient. BRANDI called [facility] and spoke to Shanthi. Advised that this automobile service writer had called the national [place] hotline and RN at [facility] in [place] updating them that patient was admitted to [facility]. Shanthi said yeah we usually call them. No further BRANDI issues or concerns at this time. Plan: [facility]
--- NOTE | 2021-03-14 22:10 | ED.RN ---
MULTIPLE ATTEMPTS MADE TO CALL NURSE TO NURSE REPORT TO [facility]. LEFT MESSAGE WITH ANSWERING SERVICE, ALSO SPOKE TO INTAKE WHO SENT AN EMAIL ASKING SOMEONE TO CALL BACK FOR REPORT.
--- NOTE | 2021-03-14 23:57 | ED.RN ---
2330 CALLED [facility]YSIC[facility] TO CHECK STATUS OF TRANSPORT, ROBERT ADVISED THEY WERE THIRTEEN MILES OUT AND SHOULD BE HERE SOON. TRANSPORT STILL NOT ON SITE.
[2021-03-15 00:12] VITALS: RESP 22
[2021-03-15] MEDS: LORazepam 1 MG Tablet PO (00:12)
== END 2021-03-15 00:35 ==
PROVIDERS: Emergency Provider Emergency Medicine
DX: F32.9 Major depressive disorder, single episode, unspecified (principal); R45.851 Suicidal ideations; I10 Essential (primary) hypertension; E11.9 Type 2 diabetes mellitus without complications; E78.5 Hyperlipidemia, unspecified; Z86.73 Personal history of transient ischemic attack (TIA), and cerebral infarction without residual deficits; Z90.49 Acquired absence of other specified parts of digestive tract; M06.9 Rheumatoid arthritis, unspecified; K21.9 Gastro-esophageal reflux disease without esophagitis; G89.29 Other chronic pain; G40.909 Epilepsy, unspecified, not intractable, without status epilepticus
CPT/HCPCS: 36415; 71045; 74176; 80048; 80307; 81001; 82077; 82962; 83630; 85025; 87177; 87209; 87426; 87493; 87506; 93005; 99281; 99285; A4216

== ENCOUNTER 2021-03-25 12:14 | Emergency (ER) | payer OTHER, SELFPAY ==
[2021-03-25 12:15] VITALS: BP 135/61; PULSE 59; RESP 15; TEMP 36.4; O2SAT 97; BMI 36.3
--- NOTE | 2021-03-25 12:34 | ED.RN ---
ashley Pacheco [phone]
--- NOTE | 2021-03-25 12:51 | EX.ED.DYSGE1 ---
HPI History of Present Illness Chief Complaint: Constipation Informant: patient Narrative Narrative: Patient is a 71-year-old female who presents to the emergency department for constipation. She states she has not had a bowel movement over the past 4 days. This is a chronic issue for her. She has been using MiraLAX at home as well as an unknown pill that she was given to her by the hospital. This has not been giving her significant relief. She has been having rectal pain with this but denies any abdominal pain. No nausea or vomiting. No fevers or chills. She does have a history of cholecystectomy as well as sections in the past. She states that she has had enemas before in the past and this usually helps her. Patient also requesting the Covid vaccine. She denies ever having the infection before in the past denies any symptoms currently. [facility] Medical History Asthma Chronic pain Depression Diabetes mellitus Diabetes mellitus GERD (gastroesophageal reflux disease) Kidney stones Migraines Non-smoker Rheumatoid arthritis Seizures Stroke/cerebrovascular accident TIA (transient ischemic attack) Home Medications omeprazole 20 mg PO BID 12/19/13 [History Last Taken 02/22/21] topiramate 50 mg PO BID 12/19/13 [History Last Taken 02/22/21] albuterol sulfate 2.5 mg INHALATION Q4H PRN PRN 05/09/14 [History Last Taken Unknown] lamotrigine 300 mg PO BID 07/22/20 [History Last Taken 02/22/21] aspirin 81 mg PO DAILY@0800 #30 tab.chew 11/30/20 [Rx Last Taken 02/22/21] clopidogrel 75 mg PO DAILY #30 tablet 11/30/20 [Rx Last Taken 02/22/21] lisinopril 10 mg PO BID #0 11/30/20 [Rx Last Taken 02/22/21] atorvastatin 80 mg PO QHS #30 tablet 12/02/20 [Rx Last Taken 02/22/21] cetirizine 10 mg PO DAILY 01/21/21 [History Last Taken 02/22/21] cholecalciferol (vitamin D3) 2,000 mcg PO DAILY 01/21/21 [History Last Taken 02/22/21] fluticasone propionate 1 spray INTRANASAL DAILY 01/21/21 [History Last Taken Unknown] docusate sodium 100 mg PO DAILY 02/11/21 [History Last Taken 02/22/21] escitalopram oxalate 10 mg PO DAILY 02/11/21 [History Last Taken 02/22/21] insulin NPH isoph U-100 human [Humulin N NPH Insulin KwikPen] 40 unit SUBCUT QHS 02/23/21 [History Last Taken 02/22/21] insulin NPH isoph U-100 human [Humulin N NPH Insulin KwikPen] 60 unit SUBCUT BREAKFAST 02/23/21 [History Last Taken 02/22/21] phenobarbital 32.4 mg PO TID@0100,0900,1700 02/23/21 [History Last Taken 02/22/21] carvedilol 18.5 mg PO BID 03/14/21 [History Last Taken Unknown] escitalopram oxalate mg 03/25/21 [History Last Taken Unknown] mirtazapine 15 mg PO QHS 03/25/21 [History Last Taken Unknown] Allergy/AdvReac Type Severity Reaction Status Date / Time acetaminophen [From Percocet] AdvReac PT UNSURE Verified 03/25/21 12:18 OF REACTION carvedilol AdvReac Rash Verified 03/25/21 12:18 oxycodone [From Percocet] AdvReac PT UNSURE Verified 03/25/21 12:18 OF REACTION Family History Other Cancer Surgical History H/O shoulder surgery History of cholecystectomy Social History Smoking Status: Never smoker ROS ROS ED Constitutional Constitutional ED: Denies chills or fever(s) Eyes Eyes: Denies change in vision ENT ENT ED: Denies epistaxis Cardiovascular Cardiovascular: Denies chest pain or palpitations Respiratory/Chest Respiratory/Chest: Denies cough, dyspnea or dyspnea on exertion Gastrointestinal Gastrointestinal: Reports constipation; Denies abdominal pain, diarrhea, melena, nausea or vomiting Genitourinary Genitourinary ED: Denies dysuria, hematuria or urinary frequency Musculoskeletal Musculoskeletal: Denies back pain or neck pain Integumentary Denies rash Neurologic Neurologic: Denies dizziness, headache(s) or weakness EXAM Physical Exam Const Vital Signs: 03/25/21 12:15 03/25/21 14:02 Temperature 97.5 F L Temperature Source Temporal Pulse Rate 59 L 60 Respiratory Rate 15 16 Blood Pressure 135/61 H 144/93 H Blood Pressure Mean 85 Pulse Ox 97 100 Oxygen Delivery Method Room Air Positive well nourished and well developed General Appearance ED: well developed and NAD HEENT Reports normocephalic and head/scalp atraumatic Eyes PERRL and EOMs intact bilaterally Neck supple Chest Wall inspection of chest normal Resp normal respiratory effort and clear to auscultation bilaterally Auscultation: Negative for rales, rhonchi or wheezes Cardio regular rate, regular rhythm and no murmurs GI normal to inspection, nondistended, normoactive bowel sounds and non-tender Palpation: soft; Negative for guarding or rebound tenderness present Back/Spine no CVA tenderness Extremity normal to inspection Neuro Sensorium / Orientation: alert Motor Exam: strength 5/5 throughout Psych mental status grossly normal Skin no rashes or lesions noted MDM MDM MDM Narrative Medical decision making narrative: Patient presents to the emergency department for constipation. This is acute on chronic exacerbation of this. She is a very benign abdominal exam. I have low concern for obstruction. She states that she would like to get an enema here to help her have a bowel movement. Patient also requesting Covid vaccination this will be provided. She was asked all of the screening questions and is a candidate for this. Patient had enema placed and was able to have a large bowel movement here. She is feeling much better. Patient does not want to wait for Covid vaccination anymore and is requesting be discharged prior to this being given. I do recommend she to continue take her MiraLAX and stool softener daily. She is to follow-up with her PCP. She is counseled that she can use an enema at home. Return precautions are reviewed with her. She understands and is agreeable this plan. Discharge Plan Triage Chief Complaint: Constipation ED Provider: Ranjeet Diez Dx/Rx/DC Orders Clinical Impression: Constipation Instructions: ED Constipation (Adult) Prescriptions: No Action omeprazole 20 MG capsule 20 mg PO BID RF: 0 topiramate 50 MG tablet 50 mg PO BID RF: 0 albuterol sulfate 2.5 MG/3 ML solution for nebulization 2.5 mg inhalation Q4H PRN PRN (Reason: Wheezing) RF: 0 lamotrigine 150 MG tablet 300 mg PO BID RF: 0 clopidogrel 75 MG tablet 75 mg PO DAILY Qty: 30 RF: 0 aspirin 81 MG tablet,chewable 81 mg PO DAILY@0800 Qty: 30 RF: 2 lisinopril 10 MG tablet 10 mg PO BID Qty: 0 RF: 0 atorvastatin 80 MG tablet 80 mg PO QHS Qty: 30 RF: 2 cetirizine 10 mg Tablet 10 mg PO DAILY RF: 0 fluticasone propionate 50 mcg/actuation [place],Suspension 1 spray INTRANASAL DAILY RF: 0 cholecalciferol (vitamin D3) 50 mcg (2,000 unit) Tablet 2,000 mcg PO DAILY RF: 0 docusate sodium 50 mg Capsule 100 mg PO DAILY RF: 0 escitalopram oxalate 5 mg Tablet 10 mg PO DAILY RF: 0 phenobarbital 32.4 mg Tablet 32.4 mg PO TID@0100,0900,1700 RF: 0 Humulin N NPH Insulin KwikPen 100 unit/mL (3 mL) Insulin Pen 40 unit SUBCUT QHS RF: 0 Humulin N NPH Insulin KwikPen 100 unit/mL (3 mL) insulin pen 60 unit subcut BREAKFAST RF: 0 carvedilol 12.5 MG tablet 18.5 mg PO BID RF: 0 mirtazapine 15 mg tablet 15 mg PO QHS RF: 0 escitalopram oxalate 10 mg tablet RF: 0 [facility]errals: [facility] [Primary Care Provider] - 3-5 Days Disposition Disposition: Home, Self Care Discharge Date/Time: 03/25/21 14:03
--- NOTE | 2021-03-25 12:57 | ED.RN ---
PHARMACY CONTACTED, PT NOW DECLINING VACCINE
[2021-03-25] MEDS: Fleet Enema 1 ML RC (13:00)
[2021-03-25 14:02] VITALS: BP 144/93; PULSE 60; RESP 16; O2SAT 100
== END 2021-03-25 14:03 | disposition home or self-care (01) ==
PROVIDERS: Emergency Provider Emergency Medicine
DX: K59.00 Constipation, unspecified (principal); E11.9 Type 2 diabetes mellitus without complications; F32.9 Major depressive disorder, single episode, unspecified; G89.29 Other chronic pain; J45.909 Unspecified asthma, uncomplicated; K21.9 Gastro-esophageal reflux disease without esophagitis; M06.9 Rheumatoid arthritis, unspecified; Z79.4 Long term (current) use of insulin; Z79.82 Long term (current) use of aspirin; Z90.49 Acquired absence of other specified parts of digestive tract; Z86.73 Personal history of transient ischemic attack (TIA), and cerebral infarction without residual deficits; Z23 Encounter for immunization
CPT/HCPCS: 91303; 99282

== ENCOUNTER 2021-04-26 16:13 | Observation (INO) | payer OTHER, SELFPAY ==
[2021-04-26 16:14] VITALS: BP 161/67; PULSE 65; RESP 16; TEMP 36.7; O2SAT 98; BMI 40.3
--- NOTE | 2021-04-26 16:24 | EKG12_ITS ---
Test Reason : DYSRHYTHMIA Blood Pressure : / mmHG Vent. Rate : 067 BPM Atrial Rate : 067 BPM P-R Int : 168 ms QRS Dur : 120 ms QT Int : 486 ms P-R-T Axes : 039 -53 071 degrees QTc Int : 513 ms Normal sinus rhythm Left anterior fascicular block Septal infarct , age undetermined Abnormal ECG Confirmed by RAIGNI ALEJANDRO, DEANDRE ([id number]), film or videotape editor CELINA RODRIGUES ([id number]) on 04/27/2021 10:39:32 AM Referred By: MAXINE Confirmed By:DEANDRE EID MD
--- NOTE | 2021-04-26 16:25 | CT_ITS ---
STUDY: CT BRAIN WITHOUT CONTRAST REASON FOR EXAM: Female, 71 years old. Dizziness RADIATION DOSAGE (If Supplied By Facility): CTDIvol = ( 38.43 ) mGy, DLP = ( 727.10 ) mGycm TECHNIQUE: Transaxial CT imaging of the brain was performed without administration of intravenous contrast material. Individualized dose optimization techniques were used for this CT. COMPARISON: February 11, 2021 FINDINGS: Normal soft tissue structures. There is hyperostosis frontalis internus. There is mild cerebral atrophy with widening of the extra-axial spaces and ventricular dilatation. There are areas of decreased attenuation within the white matter tracts of the supratentorial brain, consistent with microvascular disease changes. There is right occipital volume loss and diminished density. Normal basal ganglia and thalami. Normal brainstem. Normal cerebellum. There is no intracranial hemorrhage. There are no findings of an acute ischemic infarction. Moderate mucosal thickening of the maxillary sinuses. CT/Brain/Head without Contrast IMPRESSION: Chronic involutional changes of the brain. Electronically Signed: Flaco Baron MD at 17:13 EDT , Service support ,
[2021-04-26 18:26] LABS: Absolute Lymphocyte Count 1.87 X10^3/uL (0.83-4.51); Absolute Neutrophil Count 5.2 X10^3/uL (2.0-7.7); Basophil# 0.07 X10^3/uL; Basophil% 0.9 % (0-1); Eosinophil# 0.28 X10^3/uL; Eosinophils% 3.5 % (0-5); Hematocrit 35.8 % (37-47); Hemoglobin 11.9 g/dL (12.0-15.0); Lymphocyte # 1.87 X10^3/ul (0.83-4.51); Lymphocyte % 23.6 % (19-41); Mean Corp Hgb Conc 33.2 g/dL (32-36); Mean Corpuscular Hgb 29.2 pg (27.0-32.0); Mean Corpuscular Volume 87.7 fL (81-99); Mean Platelet Vol. 10.8 fl (6.2-12.0); Monocyte# 0.47 X10^3/uL; Monocyte% 5.9 % (0-10); NRBC Flagged by Analyzer 0 % (0-5); Neutrophil # 5.21 X10^3/uL (2.7-7.7); Neutrophil % 65.7 % (47-70); Platelet Count 313 K/mm3 (150-450); RBC Distribution Width CV 12.3 % (11.6-14.6); RBC Distribution Width SD 39.3 fl (35.1-43.9); Red Blood Count 4.08 M/mm3 (4.2-5.4); White Blood Count 7.9 K/mm3 (4.4-11.0)
[2021-04-26 18:37] LABS: Anion Gap 7 (5-15); BUN 10 mg/dL (7-18); BUN/Creat Ratio 12.9 RATIO (10-20); Calcium,Total 8.8 mg/dL (8.5-10.1); Chloride 106 mmol/L (98-107); Creatinine, Serum 0.78 mg/dL (0.55-1.02); EST Glomerular Filtration Rate 78 mL/min (>60); Est Glom Filt Rate - Afr Amer 94 mL/min (>60); Estimated Creatinine Clearance 44.56 ml/min; Glucose 265 mg/dL (74-106); Potassium 3.9 mmol/L (3.5-5.1); Sodium Level 137 mmol/L (136-145)
--- NOTE | 2021-04-26 19:08 | EX.ED.DYSGE1 ---
HPI History of Present Illness Chief Complaint: Dizziness Narrative Narrative: Patient presents with desire to be placed in a retirement. Chief complaints is dizziness however patient does not feel dizzy she just feels weak she has generalized weakness she has knee pain she has decreased ability to ambulate, she was recently admitted psychiatrically for suicidal ideations although she said she just wanted to be admitted and she scratched her wrist but she would never hurt herself. She does have psychiatric problems, she has had history of depression and suicidal thoughts but at this time she does not have any suicidal thoughts. She just feels weak. PFSH PFS Medical History Asthma Chronic pain Depression Diabetes mellitus Diabetes mellitus GERD (gastroesophageal reflux disease) Kidney stones Migraines Non-smoker Rheumatoid arthritis Seizures Stroke/cerebrovascular accident TIA (transient ischemic attack) Home Medications omeprazole 20 mg PO BID 12/19/13 [History Last Taken 02/22/21] topiramate 50 mg PO BID 12/19/13 [History Last Taken 02/22/21] albuterol sulfate 2.5 mg INHALATION Q4H PRN PRN 05/09/14 [History Last Taken Unknown] lamotrigine 300 mg PO BID 07/22/20 [History Last Taken 02/22/21] aspirin 81 mg PO DAILY@0800 #30 tab.chew 11/30/20 [Rx Last Taken 02/22/21] clopidogrel 75 mg PO DAILY #30 tablet 11/30/20 [Rx Last Taken 02/22/21] lisinopril 10 mg PO BID #0 11/30/20 [Rx Last Taken 02/22/21] atorvastatin 80 mg PO QHS #30 tablet 12/02/20 [Rx Last Taken 02/22/21] cetirizine 10 mg PO DAILY 01/21/21 [History Last Taken 02/22/21] cholecalciferol (vitamin D3) 2,000 mcg PO DAILY 01/21/21 [History Last Taken 02/22/21] fluticasone propionate 1 spray INTRANASAL DAILY 01/21/21 [History Last Taken Unknown] docusate sodium 100 mg PO DAILY 02/11/21 [History Last Taken 02/22/21] escitalopram oxalate 10 mg PO DAILY 02/11/21 [History Last Taken 02/22/21] insulin NPH isoph U-100 human [Humulin N NPH Insulin KwikPen] 40 unit SUBCUT QHS 02/23/21 [History Last Taken 02/22/21] insulin NPH isoph U-100 human [Humulin N NPH Insulin KwikPen] 60 unit SUBCUT BREAKFAST 02/23/21 [History Last Taken 02/22/21] phenobarbital 32.4 mg PO TID@0100,0900,1700 02/23/21 [History Last Taken 02/22/21] carvedilol 18.5 mg PO BID 03/14/21 [History Last Taken Unknown] escitalopram oxalate mg 03/25/21 [History Last Taken Unknown] mirtazapine 15 mg PO QHS 03/25/21 [History Last Taken Unknown] Allergy/AdvReac Type Severity Reaction Status Date / Time acetaminophen [From Percocet] AdvReac PT UNSURE Verified 03/25/21 12:18 OF REACTION carvedilol AdvReac Rash Verified 03/25/21 12:18 oxycodone [From Percocet] AdvReac PT UNSURE Verified 03/25/21 12:18 OF REACTION Family History Other Cancer Surgical History H/O shoulder surgery History of cholecystectomy Social History Smoking Status: Never smoker ROS ROS ED ROS Narrative Past medical history: Reviewed reviewed, includes depression, anxiety, progressive vision loss, failure to thrive, seizure disorder, hypertension, diabetes, hyperlipidemia, asthma Medications: Reviewed Social history: Noncontributory Review of systems: All systems negative except as indicated General: No fever. Generalized weakness as in HPI Eyes: No visual changes ENT: No upper airway congestion, normal voice Neck: No neck pain Cardiovascular: No chest pain Respiratory: No shortness of breath or cough Gastrointestinal: No abdominal pain, nausea vomiting or diarrhea Genitourinary: No dysuria Musculoskeletal: Denies myalgias no difficulty with ambulation Skin: No rash Neurological: No memory loss, confusion or any focal weakness Psych: No current suicidal ideations. She does admit to being depressed. Hematologic: No easy bleeding or easy bruising EXAM Physical Exam Narrative Exam Narrative: Physical exam General: Patient appears chronically ill. She does not appear in significant distress Head: Normocephalic, Atraumatic Eyes: Conjunctiva not pale ENT: Moist mucous membranes Neck: Supple, Nontender, No lymphadenopathy Cardiovascular: Regular rate, Regular rhythm Respiratory: No distress, CTA bilaterally Abdomen: Soft, Nontender, Nondistended Back: Nontender, Normal Inspection. Negative for: CVA tenderness Extremities: Nontender, No edema Skin: Normal color, No rash Neurological: Alert, Normal Strength, Normal Sensation Psychological: She seems anxious and slightly agitated. Const Vital Signs: 04/26/21 16:14 04/26/21 18:47 04/26/21 20:00 Temperature 98.1 F Temperature Source Temporal Pulse Rate 65 87 Respiratory Rate 16 15 Respiratory Effort Normal Non-Labored Respiratory Pattern Normal Blood Pressure 161/67 H 159/78 H Blood Pressure Mean 98 105 Pulse Ox 98 99 Oxygen Delivery Method Room Air Room Air MDM MDM MDM Narrative Medical decision making narrative: Patient has an unremarkable work-up, however due to her weakness and debility I cannot discharge her, I try to talk to social work about placement but we cannot do it at this hour. I will admit her for observation. Lab Data Labs: Laboratory Results - last 24 hr 04/26/21 04/26/21 04/26/21 18:19 18:19 18:30 WBC 7.9 RBC 4.08 L Hgb 11.9 L Hct 35.8 L MCV 87.7 MCH 29.2 MCHC 33.2 RDW Std Deviation 39.3 RDW Coeff of [place] 12.3 Plt Count 313 MPV 10.8 Immature Gran % (Auto) 0.400 Neut % (Auto) 65.7 Lymph % (Auto) 23.6 [place] % (Auto) 5.9 Eos % (Auto) 3.5 Baso % (Auto) 0.9 Absolute Neuts (auto) 5.2 Absolute Lymphs (auto) 1.87 Nucleated RBC % 0 Sodium 137 Potassium 3.9 Chloride 106 Carbon Dioxide 24.0 Anion Gap 7 BUN 10 Creatinine 0.78 Estim Creat Clear Calc 44.56 Est GFR (MDRD) Af Amer 94 Est GFR (MDRD) Non-Af 78 BUN/Creatinine Ratio 12.9 Glucose 265 H Calcium 8.8 Urine Color Yellow Urine Clarity Clear Urine pH 7.0 Ur Specific [place] 1.010 Urine Protein 100 H Urine Glucose (UA) 100 H Urine Ketones Negative Urine Occult Blood 150 H Urine Nitrite Negative Urine Bilirubin Negative Urine Urobilinogen Normal Ur Leukocyte Esterase 25 H Urine RBC 10-25 SEEN Urine WBC 0-5 SEEN Ur Squamous Epith Cells 0-5 SEEN Urine Bacteria 1+ Urine Mucus 0 SEEN Radiography Diagnostic Testing: Radiology Impression Brain CT 04/26/21 16:25 IMPRESSION: Chronic involutional changes of the brain. Electronically Signed: Flaco Baron MD at 17:13 EDT , Service support , Discharge Plan Triage Chief Complaint: Dizziness ED Provider: Yovanny Cameron Dx/Rx/DC Orders Clinical Impression: Declining functional status, Weakness Prescriptions: No Action omeprazole 20 MG capsule 20 mg PO BID RF: 0 topiramate 50 MG tablet 50 mg PO BID RF: 0 albuterol sulfate 2.5 MG/3 ML solution for nebulization 2.5 mg inhalation Q4H PRN PRN (Reason: Wheezing) RF: 0 lamotrigine 150 MG tablet 300 mg PO BID RF: 0 clopidogrel 75 MG tablet 75 mg PO DAILY Qty: 30 RF: 0 aspirin 81 MG tablet,chewable 81 mg PO DAILY@0800 Qty: 30 RF: 2 lisinopril 10 MG tablet 10 mg PO BID Qty: 0 RF: 0 atorvastatin 80 MG tablet 80 mg PO QHS Qty: 30 RF: 2 cetirizine 10 mg Tablet 10 mg PO DAILY RF: 0 fluticasone propionate 50 mcg/actuation [place],Suspension 1 spray INTRANASAL DAILY RF: 0 cholecalciferol (vitamin D3) 50 mcg (2,000 unit) Tablet 2,000 mcg PO DAILY RF: 0 docusate sodium 50 mg Capsule 100 mg PO DAILY RF: 0 escitalopram oxalate 5 mg Tablet 10 mg PO DAILY RF: 0 phenobarbital 32.4 mg Tablet 32.4 mg PO TID@0100,0900,1700 RF: 0 Humulin N NPH Insulin KwikPen 100 unit/mL (3 mL) Insulin Pen 40 unit SUBCUT QHS RF: 0 Humulin N NPH Insulin KwikPen 100 unit/mL (3 mL) insulin pen 60 unit subcut BREAKFAST RF: 0 carvedilol 12.5 MG tablet 18.5 mg PO BID RF: 0 mirtazapine 15 mg tablet 15 mg PO QHS RF: 0 escitalopram oxalate 10 mg tablet RF: 0 [facility] - Disposition Disposition: Acute Care Hospital [facility]
[2021-04-26 19:13] LABS: Color, Urine Yellow (Yellow); Glucose, Dipstick 100 mg/dl (Normal); Ketone-Dipstick Negative (Negative); Leukocyte Esterase-Dipstick 25 /ul (Negative); Mucous, Urine 0 SEEN /hpf (<or=2+); Nitrite-Dipstick Negative (Negative); Occult Blood-Urine 150 /ul (Negative); Protein-Dipstick 100 mg/dl (Negative); Urine Bilirubin Dipstick Negative (Negative); Urine Clarity Clear (Clear); Urine Urobilinogen Normal (Normal)
[2021-04-26 19:23] LABS: Bacteria 1+ /hpf (None Seen); Red Blood Cells-Urine 10-25 SEEN /hpf (0-5); Squamous Epithelial Cells - UA 0-5 SEEN /hpf (5-10); White Blood Cells 0-5 SEEN /hpf (0-5)
--- NOTE | 2021-04-26 19:30 | NURSING ---
[facility]ULTIPLE ATTEMPTS, WAS TRANSFERRED TO SOMEONE ABOUT TRANSFERS BUT NO ONE WOULD ANSWER AND THERE WAS NO VM TO LEAVE A MESSAGE
[2021-04-26 20:00] VITALS: BP 159/78; PULSE 87; RESP 15; O2SAT 99
--- NOTE | 2021-04-26 20:49 | PCM.HP.STD ---
HPI - General General Date of Admission: 04/26/21 HPI Narrative RICKEY JAQUEZ, is a 71 F with a significant history of CVA; diabetes mellitus; depression and anxiety who presents because she cannot take care of herself. Of note patient was at our hospital ED on 03/13/2021. At that time she was depressed and was cutting her wrist with her nails. She reported that she was not suicidal. Reportedly she was doing that because her family was not taking care of her. Subsequently she was transferred to a psych facility. She was discharged from the psych facility for her son to take care of her. Reportedly her son is an alcoholic and is always quarrelling with his spouse and unable to take care of patients. Per patient her PCP wanted her to come to the ED for rehabilitation. Patient reports that she had a stroke and cannot see so she is hoping that she can be helped at a residential because of her poor vision and for rehab. [facility] Medical History Asthma Chronic pain Depression Diabetes mellitus Diabetes mellitus GERD (gastroesophageal reflux disease) Kidney stones Migraines Non-smoker Rheumatoid arthritis Seizures Stroke/cerebrovascular accident TIA (transient ischemic attack) Home Medications omeprazole 20 mg PO BID 12/19/13 [History Last Taken 02/22/21] topiramate 50 mg PO BID 12/19/13 [History Last Taken 02/22/21] albuterol sulfate 2.5 mg INHALATION Q4H PRN PRN 05/09/14 [History Last Taken Unknown] lamotrigine 300 mg PO BID 07/22/20 [History Last Taken 02/22/21] aspirin 81 mg PO DAILY@0800 #30 tab.chew 11/30/20 [Rx Last Taken 02/22/21] clopidogrel 75 mg PO DAILY #30 tablet 11/30/20 [Rx Last Taken 02/22/21] lisinopril 10 mg PO BID #0 11/30/20 [Rx Last Taken 02/22/21] atorvastatin 80 mg PO QHS #30 tablet 12/02/20 [Rx Last Taken 02/22/21] cetirizine 10 mg PO DAILY 01/21/21 [History Last Taken 02/22/21] cholecalciferol (vitamin D3) 2,000 mcg PO DAILY 01/21/21 [History Last Taken 02/22/21] fluticasone propionate 1 spray INTRANASAL DAILY 01/21/21 [History Last Taken Unknown] docusate sodium 100 mg PO DAILY 02/11/21 [History Last Taken 02/22/21] insulin NPH isoph U-100 human [Humulin N NPH Insulin KwikPen] 40 unit SUBCUT QHS 02/23/21 [History Last Taken 02/22/21] insulin NPH isoph U-100 human [Humulin N NPH Insulin KwikPen] 60 unit SUBCUT BREAKFAST 02/23/21 [History Last Taken 02/22/21] phenobarbital 32.4 mg PO TID@0100,0900,1700 02/23/21 [History Last Taken 02/22/21] carvedilol 18.5 mg PO BID 03/14/21 [History Last Taken Unknown] escitalopram oxalate 10 mg PO DAILY 03/25/21 [History Last Taken Unknown] mirtazapine 15 mg PO QHS 03/25/21 [History Last Taken Unknown] Allergy/AdvReac Type Severity Reaction Status Date / Time acetaminophen [From Percocet] AdvReac PT UNSURE Verified 03/25/21 12:18 OF REACTION carvedilol AdvReac Rash Verified 03/25/21 12:18 oxycodone [From Percocet] AdvReac PT UNSURE Verified 03/25/21 12:18 OF REACTION Family History Other Cancer Surgical History H/O shoulder surgery History of cholecystectomy Social History Smoking Status: Never smoker ROS ROS Narrative Constitutional: Denies anorexia and change in weight Eyes: Reports blurry vision. Denies discharge from eye(s), , erythema, eye pain, or other HEENT: Denies abnormal hearing, dysphagia, ear pain, epistaxis, headache(s), hearing loss, nasal congestion, nasal discharge, post nasal drip, sinus pressure, sore throat or other Cardiovascular: Denies chest pain or palpitations. Denies dyspnea on exertion, orthopnea and paroxysmal nocturnal dyspnea Respiratory/Chest: Denies cough, excessive phlegm production, shortness of breath with exertion and wheezing Gastrointestinal: Denies abdominal pain, coffee ground emesis, constipation, diarrhea, dyspepsia, hematemesis, hematochezia, loose stools, melena, nausea, vomiting or other Genitourinary: Denies burning urination, difficulty urinating, dysuria, hematuria, nocturia, urinary frequency, urinary hesitancy, urinary incontinence, urinary urgency or other Musculoskeletal: Denies arthralgias, back pain, joint pain, joint stiffness, joint swelling, myalgias, neck pain or other Neurologic: Denies abnormal gait, abnormal speech, confusion, disequilibrium, dizziness, focal weakness, headache(s), numbness, paresthesias, seizure-like activity, seizures, syncope, tingling, tremor(s) or other Psychiatric: Has anxiety and depression. Denies homicidal ideation, suicidal ideation or other Endocrinology: Denies change in body appearance, cold intolerance, excessive sweating, heat intolerance, polydipsia, polyuria or other Hematologic/Lymphatic: Denies anemia, easy bleeding, easy bruising, lymphadenopathy or other Integumentary: Denies rashes Allergic/Immunologic: Denies rhinitis, hives, eczema, asthma or other Vital Signs Vital Signs Vital Signs: 04/26/21 16:14 04/26/21 18:47 04/26/21 20:00 Temperature 98.1 F Temperature Source Temporal Pulse Rate 65 87 Respiratory Rate 16 15 Respiratory Effort Normal Non-Labored Respiratory Pattern Normal Blood Pressure 161/67 H 159/78 H Blood Pressure Mean 98 105 Pulse Ox 98 99 Oxygen Delivery Method Room Air Room Air Weight Weight: 106.594 kg Body Mass Index (BMI) 40.3 Physical Exam Narrative Physical exam: General: Well-nourished, well-developed. Head: Normocephalic, atraumatic, no tenderness Eyes: PERRLA, EOMI ENT, no trauma, moist mucous membranes, no rhinorrhea Neck: Nontender, full range of motion, no spinal tenderness, deformities, step-off CVS: Regular rate and rhythm. S1-S2 present. No murmur, gallop or rub. Respiratory : clear to auscultation bilaterally, chest wall nontender, no wheezing Abdomen: Soft, nontender, nondistended, normal bowel sounds, no masses : Deferred Back: Nontender, no CVA tenderness, no midline spinal tenderness, deformities, step-offs Extremities: Nontender full range of motion, no trauma Skin: Normal color, no trauma, abrasions Neuro: Alert, oriented, cranial nerves II through XII grossly intact except patient has poor vision. Pupils are myotic and does not react to light. Psychiatry: Depressed and crying. Results Lab / Micro Data Result Diagrams: 04/26/21 18:19 04/26/21 18:19 Labs: Laboratory Results - last 24 hr 04/26/21 18:19: WBC 7.9, RBC 4.08 L, Hgb 11.9 L, Hct 35.8 L, MCV 87.7, MCH 29.2, MCHC 33.2, RDW Std Deviation 39.3, RDW Coeff of Linda 12.3, Plt Count 313, MPV 10.8, Immature Gran % (Auto) 0.400, Neut % (Auto) 65.7, Lymph % (Auto) 23.6, Laurel % (Auto) 5.9, Eos % (Auto) 3.5, Baso % (Auto) 0.9, Absolute Neuts (auto) 5.2, Absolute Lymphs (auto) 1.87, Nucleated RBC % 0 04/26/21 18:19: Sodium 137, Potassium 3.9, Chloride 106, Carbon Dioxide 24.0, Anion Gap 7, BUN 10, Creatinine 0.78, Estim Creat Clear Calc 44.56, Est GFR (MDRD) Af Amer 94, Est GFR (MDRD) Non-Af 78, BUN/Creatinine Ratio 12.9, Glucose 265 H, Calcium 8.8 04/26/21 18:30: Urine Color Yellow, Urine Clarity Clear, Urine pH 7.0, Ur Specific [place] 1.010, Urine Protein 100 H, Urine Glucose (UA) 100 H, Urine Ketones Negative, Urine Occult Blood 150 H, Urine Nitrite Negative, Urine Bilirubin Negative, Urine Urobilinogen Normal, Ur Leukocyte Esterase 25 H, Urine RBC 10-25 SEEN, Urine WBC 0-5 SEEN, Ur Squamous Epith Cells 0-5 SEEN, Urine Bacteria 1+, Urine Mucus 0 SEEN Radiology Impression Brain CT 04/26/21 16:25 IMPRESSION: Chronic involutional changes of the brain. Electronically Signed: Flaco Baron MD at 17:13 EDT , Service support , Assessment & Plan Assessment/Plan (1) Debility: (2) Depression with anxiety: (3) Diabetes mellitus type 2 in obese: PLAN: Debility PT and OT to work with patient. Case management consult. Diabetes mellitus Patient with hyperglycemia. Continue correction scale insulin ordered. Depression with anxiety/psychiatry behavior Lexapro and Remeron continued. Ativan as needed ordered since patient was anxious at the emergency department. Seizure disorder Phenobarbital and Lamictal continue DVT prophylaxis: Subcutaneous Lovenox ordered. Charges/Coding Visit Charges OBSV E&M: 74180 Initial observation care L3
[2021-04-26 22:00] VITALS: BP 159/78; PULSE 87; RESP 15; TEMP 36.7; O2SAT 99
[2021-04-26 22:11] VITALS: BMI 41.3
[2021-04-26 22:29] VITALS: BP 172/78; PULSE 68; RESP 16; RESP 18; TEMP 36.6; O2SAT 98
[2021-04-27] VITALS (10 sets, daily range): BP systolic 150–173; BP diastolic 68–96; PULSE 61–73; RESP 16–20; TEMP 36.4–36.7; O2SAT 93–99
[2021-04-27] MEDS: MELATONIN 3 MG TABLET PO (00:17)
[2021-04-27] MEDS: lamoTRIgine 150 MG Tablet 300 MG PO ×3 (00:18→21:12)
[2021-04-27] MEDS: Topiramate 50 MG Tablet PO ×3 (00:19→21:12)
[2021-04-27] MEDS: Mirtazapine 15 MG Tablet PO ×2 (00:20→21:12)
[2021-04-27] MEDS: LORazepam 0.5 MG Tablet PO ×3 (00:28→20:35)
[2021-04-27] MEDS: Phenobarbital 32.4 MG Tablet PO ×4 (00:30→21:12)
[2021-04-27 06:01] LABS: Bedside Glucose 211 mg/dL (70-110)
--- NOTE | 2021-04-27 08:43 | PCM.PN.HOSP ---
Subjective Subjective Patient was seen and examined. No acute event overnight since admission. She looks lethargic. She stated that she was tired and did not sleep. Denied any new complaints. Objective Data Objective Data Vital Signs: Vital Signs Temp Pulse Resp BP Pulse Ox 97.6 F L 61 20 H 150/68 H 99 04/27/21 06:11 04/27/21 06:11 04/27/21 06:11 04/27/21 06:11 04/27/21 06:11 Oxygen Delivery Method Room Air Weight: 109.2 kg Body Mass Index (BMI) 41.3 Intake & Output: Intake and Output for Last 24 Hours 04/25/21 04/26/21 04/27/21 23:59 23:59 23:59 Output Total 400 / 400 Balance -400 / -400 Lab / Micro Data Result Diagrams: 04/26/21 18:19 04/26/21 18:19 Labs: Laboratory Results - last 24 hr 04/26/21 18:19: WBC 7.9, RBC 4.08 L, Hgb 11.9 L, Hct 35.8 L, MCV 87.7, MCH 29.2, MCHC 33.2, RDW Std Deviation 39.3, RDW Coeff of Lnida 12.3, Plt Count 313, MPV 10.8, Immature Gran % (Auto) 0.400, Neut % (Auto) 65.7, Lymph % (Auto) 23.6, [place] % (Auto) 5.9, Eos % (Auto) 3.5, Baso % (Auto) 0.9, Absolute Neuts (auto) 5.2, Absolute Lymphs (auto) 1.87, Nucleated RBC % 0 04/26/21 18:19: Sodium 137, Potassium 3.9, Chloride 106, Carbon Dioxide 24.0, Anion Gap 7, BUN 10, Creatinine 0.78, Estim Creat Clear Calc 44.56, Est GFR (MDRD) Af Amer 94, Est GFR (MDRD) Non-Af 78, BUN/Creatinine Ratio 12.9, Glucose 265 H, Calcium 8.8 04/26/21 18:30: Urine Color Yellow, Urine Clarity Clear, Urine pH 7.0, Ur Specific [place] 1.010, Urine Protein 100 H, Urine Glucose (UA) 100 H, Urine Ketones Negative, Urine Occult Blood 150 H, Urine Nitrite Negative, Urine Bilirubin Negative, Urine Urobilinogen Normal, Ur Leukocyte Esterase 25 H, Urine RBC 10-25 SEEN, Urine WBC 0-5 SEEN, Ur Squamous Epith Cells 0-5 SEEN, Urine Bacteria 1+, Urine Mucus 0 SEEN 04/27/21 05:53: POC Glucose 211 H Radiography Diagnostic Testing: Radiology Impression Brain CT 04/26/21 16:25 IMPRESSION: Chronic involutional changes of the brain. Electronically Signed: Flaco Baron MD at 17:13 EDT , Service support , Physical Exam Narrative Physical exam: General: Alert, slightly lethargic, Cooperative, morbidly obese HEENT: Atraumatic Oral: Moist Mucosa Neck: Supple Lungs: Diminished to auscultation Cardiovascular: HS I+II, regular, no murmurs Abdomen: Bowel Sounds Present, Soft, Non Tender Extremities: No edema Assessment & Plan Assessment/Plan (1) Debility: (2) Depression with anxiety: (3) Diabetes mellitus type 2 in obese: PLAN: 1. Debility/inability of patient or family to care for self PT and OT consulted, social work/case management consult [place] [facility] [place] [facility] 2. Type II DM, patient blood sugars are uncontrolled Home meds on hold Continue on insulin sliding scale with blood glucose checks Will resume home insulin when meds are verified 3. Major depression/anxiety, recent discharge from psych facility Lexapro and Remeron continued. Ativan as needed ordered since patient was anxious at the emergency department. 4. Seizure disorder, stable, continue on Phenobarbital, Topamax and Lamictal Charges/Coding Visit Charges Inpatient E&M: 39379 Subs Hosp L2
--- NOTE | 2021-04-27 09:36 | PCM.TXEXTCAR ---
Diet 04/26/21 22:12 Diet: Consistent Carb - Calorie Controlled Food consistency:: Regular Liquid Consistency:: Regular/Thin How many daily calories?: 1800 calorie Routine Orders/Code Status Keep PO Greater than or Equal to (%): 94 Routine Lab Work: CBC (within 3 days) and BMP (within 3 days) Code Status: DNRCC-A (with intubation) Wound(s) LEFT ECHAVARRIA: Wound Type: Laceration LEFT LOWER ABD: Wound Type: WAS A BOIL Therapies Weight Bearing: Weight bearing as tolerated Physical Therapy: Eval and Treat Occupational Therapy: Eval and Treat Problem/Diagnosis (1) Debility: Status: Acute (2) Depression with anxiety: Status: Acute (3) Diabetes mellitus type 2 in obese: Status: Chronic Allergies/Procedures Done in Hospital Allergies acetaminophen [From Percocet] Adverse Reaction (Verified 03/25/21 12:18) PT UNSURE OF REACTION pt has tylenol since with no adverse reaction carvedilol Adverse Reaction (Verified 03/25/21 12:18) Rash oxycodone [From Percocet] Adverse Reaction (Verified 03/25/21 12:18) PT UNSURE OF REACTION Procedures: None Type of Care/Length of Stay Estimated LOS: Convalescent Care Less Than 30 days Type of Care Needed: Skilled Rehab Potential: Good Prognosis: Good Additional Orders/Day of Discharge Day of Discharge: 04/27/21 Discharge Plan Admission Admit Date/Time: 04/26/21 20:43 Primary Reason for Your Visit: Debility Attending Provider: Nina Rollins Primary Care Provider: [facility] Discharge Orders/Prescriptions Prescriptions: No Action omeprazole 20 MG capsule 20 mg PO BID RF: 0 topiramate 50 MG tablet 50 mg PO BID RF: 0 albuterol sulfate 2.5 MG/3 ML solution for nebulization 2.5 mg inhalation Q4H PRN PRN (Reason: Wheezing) RF: 0 lamotrigine 150 MG tablet 300 mg PO BID RF: 0 clopidogrel 75 MG tablet 75 mg PO DAILY Qty: 30 RF: 0 aspirin 81 MG tablet,chewable 81 mg PO DAILY@0800 Qty: 30 RF: 2 lisinopril 10 MG tablet 10 mg PO BID Qty: 0 RF: 0 atorvastatin 80 MG tablet 80 mg PO QHS Qty: 30 RF: 2 cetirizine 10 mg Tablet 10 mg PO DAILY RF: 0 fluticasone propionate 50 mcg/actuation Ruby,Suspension 1 spray INTRANASAL DAILY RF: 0 cholecalciferol (vitamin D3) 50 mcg (2,000 unit) Tablet 2,000 mcg PO DAILY RF: 0 docusate sodium 50 mg Capsule 100 mg PO DAILY RF: 0 phenobarbital 32.4 mg Tablet 32.4 mg PO TID@0100,0900,1700 RF: 0 Humulin N NPH Insulin KwikPen 100 unit/mL (3 mL) Insulin Pen 40 unit SUBCUT QHS RF: 0 Humulin N NPH Insulin KwikPen 100 unit/mL (3 mL) insulin pen 60 unit subcut BREAKFAST RF: 0 carvedilol 12.5 MG tablet 18.5 mg PO BID RF: 0 mirtazapine 15 mg tablet 15 mg PO QHS RF: 0 escitalopram oxalate 10 mg tablet 10 mg PO DAILY RF: 0 [facility] - Within 2 Weeks Disposition Disposition (needs filled in before D/C Order can be placed): [facility]
[2021-04-27] MEDS: Insulin Lispro 100 UNIT/ML INSULN.PEN SC ×3 (10:38→21:18)
[2021-04-27] MEDS: Aspirin 81 MG TAB.CHEW PO (10:42)
[2021-04-27] MEDS: Enoxaparin 40 MG/0.4 ML Syringe SC (10:43)
[2021-04-27] MEDS: Loratadine 10 MG Tablet PO (10:43)
[2021-04-27] MEDS: Escitalopram Oxalate 10 MG Tablet PO (10:43)
[2021-04-27] MEDS: Pantoprazole Sodium 20 MG Tablet PO ×2 (10:44→21:12)
[2021-04-27] MEDS: Cholecalciferol (VIT D3) 25 MCG TABLET (1,000 UNITS) 50 MCG PO (10:44)
[2021-04-27 11:06] LABS: Bedside Glucose 217 mg/dL (70-110)
--- NOTE | 2021-04-27 13:42 | CM.ED ---
Addendum entered by Lucy Dodd 04/27/21 15:04: Patient's home based worker is Froylan Santo and his fax is [phone]. [place] [phone]. Lucy Yousif JUANITA CROW Original Note: BRANDI Note Referral Source: SW from PCU Referral Reason: Placement SW met with patient in her room. RN was present. SW met with patient and completed the [facility] ([facility]) Referral. Patient reports not using walker or cane in the house. Lives with son and daughter in law and 3children. Patient said that she has only been out of the house one time and that her daughter in law was screaming horribly at her. Patient said that she can't do steps. Patient reports no steps into the house and reports she lives on the main floor. Patient has dentures but no diet restrictions. Patient uses insulin. No CPAP or oxygen. Patient said that she has been at SNF in the past and they are horrible to her as they do not want to take her to the bathroom as much as I need to go. Patient reports she has been bruising real bad. Reports that she can't life her knee to walk up the step. Patient said that she and her son argue and I fight back. Patient said that she has been having horrible nightmares lately. [place] said the [place] counselor came to see me and told me if I go to a [facility] It would be a nice one and there would be a telephone that I could call anyone if I am mistreated... this is the only reason I will go. SW asked patient her goals and patient said after the stroke.. everything is gone. Patient said I need help with everything. SW said that she can't get up and wants to know why I am not able to see and now it is gone.. I need help. SW asked patient about any obsessive thoughts and she said they are going to take me and put me away. SW spoke to patient's daughter in law, Madhuri Hoang, for review of patient's current needs. Madhuri said that patient has lived with them since 03/22/21. Madhuri said that patient does not want to live with them anymore. Madhuri said that patient can't stay anyplace for a period of time. Madhuri said that patient's other son, Miguel Ángel, convinced patient to go to a SNF to find her own self but Madhuri said that she thought she was making break through with patient. Madhuri that patient wants to live by herself but can't. Madhuri said that she made a neurology and retina appointment for next week. Madhuri said that patient does not want to follow the rules. Madhuri said that they were slowly allowing her to take her Meds. Madhuri said that she would get patient in and turn on the water and patient would wash herself. Patient needed help with picking out clothes but is able to dress herself. Patient is able to toilet herself. Patient is able to groom herself. Patient, per daughter in law, is bipolar and is manic and goes crazy off on things.. like she thinks I stole her wallet. DIL stated that it is like she has sundowners but we got her checked out for demential and she did great and her memory is great. DIL reports patient is able to feed herself and has no choking issues. DIL said that she felt that patient was getting better but still depressed. JOAQUIN said that patient goes outside while we are sleeping and they have told her not to do that due to safety concerns. DIL said that patient does this (walking outside while they are sleeping) all hours of the day. Patient said that she told her that she wants to take a bus to [place] to live with her brother. DIL stated that patient told her that she wants to go to a bar and find a man to take her to [place]. JOAQUIN said that patient is not making safe choices. JOAQUIN said that she has door locks and door alarms in the home. JOAQUIN said that patient has candy and they have to put it up as she eats all of it and then patient has an attitude when limits are set. JOAQUIN said that recently patient became so fixated on having the candy that her (patient's son) said to patient take the candy. JOAQUIN said that when patient was given the candy she said I don't want the candy. JOAQUIN said that yesterday patient was fine. JOAQUIN said that patient freaks out about the lights and that she can't see. JOAQUIN said that patient has 30 light bulbs at her home. JOAQUIN said that patient repeatedly stated I need more lights'. JOAQUIN denied any verbal or physical abuse. JOAQUIN said that she can't handle patient's acting up. JOAQUIN said that patient does not want to be at their house. JOAQUIN said that her children are not used to the yelling or bickering. Patient, per JOAQUIN, is not incontinent but wears depends. JOAQUIN said that patient is constipated alot. JOAQUIN said that patient is given laxative every couple of days. JOAQUIN said that at times patient is so backed up she craps all over the house . JOAQUIN said that patient was crying on Saturday as she was s depressed. JOAQUIN said that she told patient that their children were having friends over and that she needed to not act up and JOAQUIN said that she didn't act up and thus able to control it. JOAQUIN said that her last psych placement was 1-2 weeks and that was prior to her coming to their house on 03/22. Patient had an psych appointment on 04/14 and takes lexapro and they added buspar 5mg. JOAQUIN said that patient was acting crazy and [place] called the [place] as I need help and they increased the buspar. JOAQUIN voiced that she feels that the lexapro needs increased and also Ativan. JOAQUIN said that patient had PT but they discontinued it last week as she did not need it anymore. Patient has home based [place] social work services including SW and psychology. BRANDI called [facility] and left voice mail for social services requesting call back. BRANDI received call from Vance at [place]. She said that patient's social services is Froylan Santo, Home based. Vance provided this typewriter repairer with Froylan's extension at [place] ([phone]) . [facility] is [phone]. BRANDI left 2 voice mails for Froylan. Froylan called this typewriter repairer back. BRANDI will fax the [facility] to him along with notes. [place]ANDI asked about [place] approved SNF. He advised [facility] in [place], [facility] in [place] and [facility] in [place]. BRANDI spoke to patient. BRANDI provided list of [facility] and [facility] SNF. Patient said that she is not going to [place]. Patient said that she wanted [facility] as it had the 5 star rating. Of note, patient said that she couldn't read the list however when this typewriter repairer walked into the room patient was watching TV and her eyes were on the TV screen. SW called [facility]. SW spoke to Hiral Casper. She said that patent left after being there for less than 24 hours. SW met with patient and said that patient left AMA from [facility]. Patient said that she doesn't want to go there as they were so mean to her. Patient reports she wants to go to [facility]. SW to follow. [facility] and note faxed to [place]ylan at the [place]. Plan: To be determined Lucy Crow
--- NOTE | 2021-04-27 15:53 | CM.ED ---
Addendum entered by Lucy Dodd 04/27/21 17:21: SW met with patient to discuss her plans regarding SNF. Patient said that she envisions her stay to be short at SNF and at discharge she will go home and live by myself. SW asked how that worked before and patient said I did good. SW asked what patient's plan is if she can't go to [place] and what her plan B is and patient said I don't know and ignored this production underwriter. BRANDI began the PASSR. Lucy DE LEON Original Note: BRANDI Note: BRANDI spoke to Yanelis at [facility]. She reports that they have [facility] beds. BRANDI provided brief history to Yanelis. BRANDI faxed referral to [facility] in [place]. [facility] number is . Confirmation received. Plan: SNF Lucy De Leon
[2021-04-27 16:16] LABS: Bedside Glucose 235 mg/dL (70-110)
--- NOTE | 2021-04-27 17:26 | NURSING ---
Daughter Valentina Darby ( ) called to request that no information or updates be given to Madhuri or Junior Hoang. Patient has been staying with them and she expressed concern for the care she was getting there.
--- NOTE | 2021-04-27 17:41 | CM.ED ---
SW Note SW met with patient to confirm her current address. Patient said that she was living with son on [address]. Patient reports she has kept her apartment on [address]. Patient said I am keeping my apartment. Patient said that the most recent SNF placement was 2019 and she signed out AMA. SW reviewed chart. Patient was seen in ED for MH issues on 03/14/21 and was transferred to [facility] for Psychiatry. Plan: SNF Lucy Senior
--- NOTE | 2021-04-27 18:27 | PCS.PANDOC ---
PANDEMIC DOCUMENTATION INITIATED: Date: 03/27/2021 Time: 190
[2021-04-27] MEDS: Atorvastatin Calcium 80 MG Tablet PO (21:12)
[2021-04-27 21:45] LABS: Bedside Glucose 207 mg/dL (70-110)
[2021-04-28] VITALS (15 sets, daily range): BP systolic 153–182; BP diastolic 62–88; PULSE 66–90; RESP 16–18; TEMP 36.3–36.7; O2SAT 95–100
[2021-04-28] MEDS: LORazepam 0.5 MG Tablet PO ×4 (02:39→22:52)
[2021-04-28] MEDS: Phenobarbital 32.4 MG Tablet PO ×3 (05:49→22:17)
[2021-04-28] MEDS: Insulin Lispro 100 UNIT/ML INSULN.PEN SC ×4 (06:09→22:11)
[2021-04-28 06:45] LABS: Bedside Glucose 257 mg/dL (70-110)
[2021-04-28] MEDS: Enoxaparin 40 MG/0.4 ML Syringe SC (09:46)
[2021-04-28] MEDS: Escitalopram Oxalate 10 MG Tablet PO (09:46)
[2021-04-28] MEDS: Aspirin 81 MG TAB.CHEW PO (09:46)
[2021-04-28] MEDS: Topiramate 50 MG Tablet PO ×2 (09:47→22:06)
[2021-04-28] MEDS: Pantoprazole Sodium 20 MG Tablet PO ×2 (09:47→22:07)
[2021-04-28] MEDS: Cholecalciferol (VIT D3) 25 MCG TABLET (1,000 UNITS) 50 MCG PO (09:47)
--- NOTE | 2021-04-28 09:59 | CASEMGMT ---
BRANDI called [facility] and left a message for Yanelis in admissions requesting a return call. Marcia Encinas DITCH RIDER AHSAN
[2021-04-28] MEDS: Loratadine 10 MG Tablet PO (10:30)
[2021-04-28] MEDS: lamoTRIgine 150 MG Tablet 300 MG PO ×2 (10:31→22:06)
--- NOTE | 2021-04-28 10:35 | PCM.PROGNOTE ---
Documented by User: MELLO Lazaro 04/28/21 10:42 Subjective Subjective Patient seen and examined. Patient resting comfortably in bed watching TV. Patient denies any complaints. Objective Data Objective Data Vital Signs: Vital Signs Temp Pulse Resp BP Pulse Ox 97.9 F 71 18 169/62 H 98 04/28/21 08:45 04/28/21 08:45 04/28/21 08:45 04/28/21 08:45 04/28/21 08:45 Oxygen Delivery Method Room Air Weight: 240 lb 11.916 oz Body Mass Index (BMI) 41.3 Intake & Output: Intake and Output for Last 24 Hours 04/26/21 04/27/21 04/28/21 23:59 23:59 23:59 Output Total 2350 / 2350 200 / 200 Balance -2350 / -2350 -200 / -200 Lab / Micro Data Result Diagrams: 04/26/21 18:19 04/26/21 18:19 Labs: Laboratory Results - last 24 hr 04/27/21 10:37: POC Glucose 217 H 04/27/21 16:12: POC Glucose 235 H 04/27/21 21:17: POC Glucose 207 H 04/28/21 06:08: POC Glucose 257 H Physical Exam Const alert, oriented x3 and no apparent distress General Appearance: cooperative HEENT normocephalic and head/scalp atraumatic Neck supple and no JVD General: trachea midline Cardio regular rate, regular rhythm, S1 normal heart sound and S2 normal heart sound Peripheral Pulses: pulses 2+ throughout GI normal to inspection, nondistended, normoactive bowel sounds, soft to palpation and non-tender Extremity normal capillary refill and no clubbing, cyanosis or edema General Extremity: no tenderness to palpation of joints or extremities Skin General Skin Exam: no breakdown and turgor normal Lesions: no lesions Rashes: no rashes Neuro no focal motor deficits and no sensory deficits noted Speech: speech normal Motor Exam: general weakness Psych cooperative Appearance: appropriate Assessment & Plan Assessment/Plan (1) Debility: PLAN: 1. Debility -PT and OT following -Social work and case management consulted, awaiting pre-CERT for care home placement due to patient's family unable able to care for patient 2. Diabetes mellitus type 2 -AC at bedtime blood sugars with sliding scale insulin ordered, patient increased to high-dose sliding scale due to continue blood sugars over 200 -Home medications on hold, will resume home insulin dosing when verified 3. Depression/anxiety -Patient had recent discharge from psych facility -Continue Lexapro and Remeron -Continue as needed Ativan 4. Seizure disorder -Stable, continue phenobarbital, Topamax, Lamictal DVT prophylaxis-subcu Lovenox This patient was seen by Melissa Fuchs NP-C under the supervision of Dr. Rollins. Documented by User: Dr. Nina Rollins MD 04/28/21 17:32 Objective Data Lab / Micro Data Result Diagrams: 04/26/21 18:19 04/26/21 18:19 Charges/Coding Addendum Addendum: This patient was seen in conjunction with Megan Shaffer. I have independently interviewed and examined the patient and reviewed pertinent historical, laboratory, and other data. I have reviewed her note and concur with her documentation Patient was seen and examined. No new complaints. She was having a panic attack because of her stay. Physical Exam: Gen: Morbidly obese not pale, not jaundiced CVS:HS I +II, regular, no murmurs RESP: Diminished at lung bases GI: BS present and normal, soft, nontender, no palpable organs EXT:No edema Assessment: 1. Debility 2. Type DM 3. Major depression/anxiety 4. Seizure disorder Plan: Continue on current home medication Discharge planning ongoing Visit Charges Inpatient E&M: 18101 Subs Hosp L2
[2021-04-28 11:41] LABS: Bedside Glucose 258 mg/dL (70-110)
[2021-04-28] MEDS: hydrALAZINE 20 MG/ML Vial 5 MG IV ×2 (12:20→22:53)
[2021-04-28] MEDS: 0.9% Saline Lock 10 ML Syringe IV (12:21)
--- NOTE | 2021-04-28 13:23 | CASEMGMT ---
BRANDI received a call from Yanelis at [facility] and they can take patient. SW told her patient may trip the screen and we need [facility] approval. SW told her SW will be in touch. SW then submitted the PASRR. Patient may trip the screen due to her mental health. However, SW will have to wait and see. SW will talk with [facility] to make sure they have what they need to approve patient for SNF. Marcia Encinas PSYCHIATRIC ORDERLY AHSAN
--- NOTE | 2021-04-28 13:33 | CASEMGMT ---
BRANDI called Froylan at [facility] and left him a voice mail inquiring if he received the [facility] for patient. Await return call. BRANDI did submit PASRR. Plan: [facility] pending [facility] and state approval. Marcia Encinas CENTER PUNCH OPERATOR AHSAN
--- NOTE | 2021-04-28 15:11 | EKG12_ITS ---
Test Reason : CP Blood Pressure : / mmHG Vent. Rate : 076 BPM Atrial Rate : 076 BPM P-R Int : 208 ms QRS Dur : 118 ms QT Int : 454 ms P-R-T Axes : 029 -63 066 degrees QTc Int : 510 ms Normal sinus rhythm Left anterior fascicular block Septal infarct (cited on or before 26-APR-2021) Confirmed by RAGINI ALEJANDRO, DEANDRE ([id number]), material expeditor CAILIN SWAN ([id number]) on 05/02/2021 2:14:58 PM Referred By: ERIKA Confirmed By:DEANDRE EID MD
--- NOTE | 2021-04-28 16:07 | CASEMGMT ---
BRANDI received a call from Vance APZ at the [facility]. She is helping Froylan today as he is at a conference. She asked BRANDI to fax her the GEC, H&P, and therapy notes. She will get everything started. BRANDI let her know patient may be here a little longer as she may trip the screen due to mental Health. BRANDI faxed information to her and BRANDI will follow up on Saturday. Marcia FOREMAN
[2021-04-28 16:32] LABS: Troponin-I HS 8 pg/mL (3.0-54.0)
[2021-04-28 16:46] LABS: Bedside Glucose 347 mg/dL (70-110)
[2021-04-28] MEDS: Acetaminophen 325 MG Tablet 650 MG PO (22:05)
[2021-04-28] MEDS: Atorvastatin Calcium 80 MG Tablet PO (22:07)
[2021-04-28] MEDS: MELATONIN 3 MG TABLET PO (22:07)
[2021-04-28] MEDS: Mirtazapine 15 MG Tablet PO (22:08)
[2021-04-28 22:26] LABS: Bedside Glucose 290 mg/dL (70-110)
[2021-04-29] VITALS (12 sets, daily range): BP systolic 148–157; BP diastolic 61–70; PULSE 67–85; RESP 16–18; TEMP 36.6–36.9; O2SAT 95–97
[2021-04-29] MEDS: Insulin Lispro 100 UNIT/ML INSULN.PEN SC ×4 (07:02→21:59)
[2021-04-29 07:06] LABS: Bedside Glucose 221 mg/dL (70-110)
[2021-04-29] MEDS: Phenobarbital 32.4 MG Tablet PO ×3 (07:06→22:07)
[2021-04-29] MEDS: Aspirin 81 MG TAB.CHEW PO (08:04)
[2021-04-29] MEDS: Topiramate 50 MG Tablet PO ×2 (09:39→21:58)
[2021-04-29] MEDS: Enoxaparin 40 MG/0.4 ML Syringe SC (09:40)
[2021-04-29] MEDS: Pantoprazole Sodium 20 MG Tablet PO ×2 (09:40→21:58)
[2021-04-29] MEDS: lamoTRIgine 150 MG Tablet 300 MG PO ×2 (09:40→21:58)
[2021-04-29] MEDS: Cholecalciferol (VIT D3) 25 MCG TABLET (1,000 UNITS) 50 MCG PO (09:40)
[2021-04-29] MEDS: Loratadine 10 MG Tablet PO (09:41)
[2021-04-29] MEDS: Escitalopram Oxalate 10 MG Tablet PO (09:41)
--- NOTE | 2021-04-29 12:51 | PN_ITS ---
Documented by User: MELLO Lazaro 04/29/21 13:00 Subjective Subjective Patient seen and examined. Patient laying in bed watching TV no distress noted. Patient denies complaints. Patient noted to be sleepy however patient is arousable and answers all questions appropriately. Objective Data Objective Data Vital Signs: Vital Signs Temp Pulse Resp BP Pulse Ox 98.4 F 73 16 152/62 H 97 04/29/21 07:55 04/29/21 11:00 04/29/21 07:55 04/29/21 07:55 04/29/21 07:55 Oxygen Delivery Method Room Air Weight: 240 lb 11.916 oz Body Mass Index (BMI) 41.3 Intake & Output: Intake and Output for Last 24 Hours 04/27/21 04/28/21 04/29/21 23:59 23:59 23:59 Intake Total 1500 / 1500 Output Total 2350 / 2350 2300 / 2300 Balance -2350 / -2350 -800 / -800 Lab / Micro Data Result Diagrams: 04/29/21 13:07 04/29/21 13:07 Labs: Laboratory Results - last 24 hr 04/28/21 15:56: Troponin I High Sens 8 04/28/21 16:41: POC Glucose 347 H 04/28/21 22:11: POC Glucose 290 H 04/29/21 07:01: POC Glucose 221 H Physical Exam Narrative Physical exam: General: Alert, slightly lethargic, Cooperative, morbidly obese HEENT: Atraumatic Oral: Moist Mucosa Neck: Supple Lungs: Diminished to auscultation Cardiovascular: HS I+II, regular, no murmurs Abdomen: Bowel Sounds Present, Soft, Non Tender Extremities: No edema Const alert, oriented x3 and no apparent distress General Appearance: cooperative HEENT normocephalic and head/scalp atraumatic Neck supple and no JVD General: trachea midline Cardio regular rate, regular rhythm, S1 normal heart sound and S2 normal heart sound Peripheral Pulses: pulses 2+ throughout GI normal to inspection, nondistended, normoactive bowel sounds, soft to palpation and non-tender Extremity normal capillary refill and no clubbing, cyanosis or edema General Extremity: no tenderness to palpation of joints or extremities Skin General Skin Exam: no breakdown and turgor normal Lesions: no lesions Rashes: no rashes Neuro no focal motor deficits and no sensory deficits noted Speech: speech normal Motor Exam: general weakness Psych cooperative Appearance: appropriate Assessment & Plan Assessment/Plan (1) Debility: PLAN: 1. Debility -PT and OT following -Social work and case management consulted, awaiting pre-CERT for residential placement due to patient's family unable able to care for patient 2. Diabetes mellitus type 2 -AC at bedtime blood sugars with sliding scale insulin ordered, despite high dose sliding scale insulin patient had sugars remain over 200 -Home medications verified, will restart home dose insulin 3. Depression/anxiety -Patient had recent discharge from psych facility -Continue Lexapro and Remeron -Continue as needed Ativan 4. Seizure disorder -Stable, continue phenobarbital, Topamax, Lamictal DVT prophylaxis-subcu Lovenox This patient was seen by Melissa Fuchs NP-C under the supervision of Dr. Rollins. Documented by User: Dr. Nina Rollins MD 04/29/21 15:53 Objective Data Lab / Micro Data Result Diagrams: 04/29/21 13:07 04/29/21 13:07 Charges/Coding Addendum Addendum: This patient was seen in conjunction with Melissa Fuchs NP. I have independently interviewed and examined the patient and reviewed pertinent historical, laboratory, and other data. I have reviewed her note and concur with her documentation Patient was seen and examined. No acute events Physical Exam: Gen: Morbidly obese not pale, not jaundiced CVS:HS I +II, regular, no murmurs RESP: Diminished at lung bases GI: BS present and normal, soft, nontender, no palpable organs EXT:No edema Assessment: 1. Debility 2. Type DM 3. Major depression/anxiety 4. Seizure disorder Plan: Continue on current home medication Discharge planning ongoing Visit Charges Inpatient E&M: 87912 Subs Hosp L2
[2021-04-29 13:21] LABS: Absolute Lymphocyte Count 1.95 X10^3/uL (0.83-4.51); Absolute Neutrophil Count 4.3 X10^3/uL (2.0-7.7); Basophil# 0.07 X10^3/uL; Eosinophil# 0.36 X10^3/uL; Eosinophils% 5.1 % (0-5); Hematocrit 36.4 % (37-47); Hemoglobin 12.1 g/dL (12.0-15.0); Lymphocyte # 1.95 X10^3/ul (0.83-4.51); Lymphocyte % 27.4 % (19-41); Mean Corp Hgb Conc 33.2 g/dL (32-36); Mean Corpuscular Hgb 28.8 pg (27.0-32.0); Mean Corpuscular Volume 86.7 fL (81-99); Monocyte# 0.45 X10^3/uL; Monocyte% 6.3 % (0-10); NRBC Flagged by Analyzer 0 % (0-5); Neutrophil # 4.27 X10^3/uL (2.7-7.7); Neutrophil % 59.9 % (47-70); POSITIVE COUNT YES; Platelet Count 282 K/mm3 (150-450); RBC Distribution Width CV 12.4 % (11.6-14.6); RBC Distribution Width SD 39.5 fl (35.1-43.9); White Blood Count 7.1 K/mm3 (4.4-11.0)
[2021-04-29 13:22] LABS: Differential Indicated SCAN CRITERIA MET
[2021-04-29 13:31] LABS: Bedside Glucose 266 mg/dL (70-110)
[2021-04-29] MEDS: LORazepam 0.5 MG Tablet PO ×2 (13:33→20:16)
[2021-04-29 13:39] LABS: Anion Gap 7 (5-15); BUN 14 mg/dL (7-18); BUN/Creat Ratio 17.9 RATIO (10-20); Calcium,Total 8.7 mg/dL (8.5-10.1); Chloride 106 mmol/L (98-107); Creatinine, Serum 0.78 mg/dL (0.55-1.02); EST Glomerular Filtration Rate 77 mL/min (>60); Est Glom Filt Rate - Afr Amer 94 mL/min (>60); Estimated Creatinine Clearance 44.56 ml/min; Glucose 277 mg/dL (74-106); Potassium 4.1 mmol/L (3.5-5.1); Sodium Level 136 mmol/L (136-145)
[2021-04-29 16:06] LABS: Bedside Glucose 195 mg/dL (70-110)
[2021-04-29] MEDS: MELATONIN 3 MG TABLET PO (20:16)
[2021-04-29] MEDS: Carvedilol 12.5 MG Tablet 18.75 MG PO (21:57)
[2021-04-29] MEDS: Lisinopril 10 MG Tablet PO (21:57)
[2021-04-29] MEDS: Atorvastatin Calcium 80 MG Tablet PO (21:58)
[2021-04-29] MEDS: Mirtazapine 15 MG Tablet PO (21:59)
[2021-04-29 22:05] LABS: Bedside Glucose 297 mg/dL (70-110)
[2021-04-29] MEDS: Insulin NPH Human 100 UNITS/ML PEN 50 UNITS SC (22:09)
[2021-04-30] VITALS (7 sets, daily range): BP systolic 112–148; BP diastolic 51–60; PULSE 60–87; RESP 16–18; TEMP 36.4–37.2; O2SAT 95–98
[2021-04-30 06:51] LABS: Bedside Glucose 139 mg/dL (70-110)
[2021-04-30] MEDS: Phenobarbital 32.4 MG Tablet PO ×3 (06:52→20:51)
[2021-04-30] MEDS: Clopidogrel Bisulfate 75 MG Tablet PO (10:38)
[2021-04-30] MEDS: lamoTRIgine 150 MG Tablet 300 MG PO ×2 (10:38→20:51)
[2021-04-30] MEDS: Topiramate 50 MG Tablet PO ×2 (10:38→20:51)
[2021-04-30] MEDS: LORazepam 0.5 MG Tablet PO ×3 (10:38→22:30)
[2021-04-30] MEDS: Aspirin 81 MG TAB.CHEW PO (10:38)
[2021-04-30] MEDS: Cholecalciferol (VIT D3) 25 MCG TABLET (1,000 UNITS) 50 MCG PO (10:38)
[2021-04-30] MEDS: Escitalopram Oxalate 10 MG Tablet PO (10:38)
[2021-04-30] MEDS: Carvedilol 12.5 MG Tablet 18.75 MG PO ×2 (10:39→20:51)
[2021-04-30] MEDS: Enoxaparin 40 MG/0.4 ML Syringe SC (10:39)
[2021-04-30] MEDS: Lisinopril 10 MG Tablet PO ×2 (10:39→20:51)
[2021-04-30] MEDS: Pantoprazole Sodium 20 MG Tablet PO ×2 (10:39→20:51)
[2021-04-30] MEDS: Insulin NPH Human 100 UNITS/ML PEN 40 UNITS SC (10:40)
[2021-04-30] MEDS: Loratadine 10 MG Tablet PO (10:40)
--- NOTE | 2021-04-30 13:30 | PN_ITS ---
Documented by User: MELLO Lazaro 04/30/21 13:36 Subjective Subjective Patient seen and examined. Patient laying in bed watching TV no distress noted. Patient denies complaints at this time. Objective Data Objective Data Vital Signs: Vital Signs Temp Pulse Resp BP Pulse Ox 97.9 F 60 16 147/59 H 95 04/30/21 07:00 04/30/21 07:42 04/30/21 07:00 04/30/21 07:00 04/30/21 07:45 Oxygen Delivery Method Room Air Weight: 240 lb 11.916 oz Body Mass Index (BMI) 41.3 Intake & Output: Intake and Output for Last 24 Hours 04/28/21 04/29/21 04/30/21 23:59 23:59 23:59 Intake Total 1500 / 1500 895 / 895 Output Total 2300 / 2300 200 / 200 700 / 700 Balance -800 / -800 695 / 695 -700 / -700 Lab / Micro Data Result Diagrams: 04/29/21 13:07 04/29/21 13:07 Labs: Laboratory Results - last 24 hr 04/29/21 13:07: Sodium 136, Potassium 4.1, Chloride 106, Carbon Dioxide 23.0, Anion Gap 7, BUN 14, Creatinine 0.78, Estim Creat Clear Calc 44.56, Est GFR (MDRD) Af Amer 94, Est GFR (MDRD) Non-Af 77, BUN/Creatinine Ratio 17.9, Glucose 277 H, Calcium 8.7 04/29/21 13:23: POC Glucose 266 H 04/29/21 15:59: POC Glucose 195 H 04/29/21 21:53: POC Glucose 297 H 04/30/21 06:44: POC Glucose 139 H Physical Exam Const alert, oriented x3 and no apparent distress General Appearance: cooperative HEENT normocephalic and head/scalp atraumatic Neck supple and no JVD General: trachea midline Cardio regular rate, regular rhythm, S1 normal heart sound and S2 normal heart sound Peripheral Pulses: pulses 2+ throughout GI normal to inspection, nondistended, normoactive bowel sounds, soft to palpation and non-tender Extremity normal capillary refill and no clubbing, cyanosis or edema General Extremity: no tenderness to palpation of joints or extremities Skin General Skin Exam: no breakdown and turgor normal Lesions: no lesions Rashes: no rashes Neuro no focal motor deficits and no sensory deficits noted Speech: speech normal Motor Exam: general weakness Psych cooperative Appearance: appropriate Assessment & Plan Assessment/Plan (1) Debility: PLAN: 1. Debility -PT and OT following -Social work and case management consulted, awaiting pre-CERT for longterm placement due to patient's family unable able to care for patient 2. Diabetes mellitus type 2 -AC at bedtime blood sugars with sliding scale insulin ordered, despite high dose sliding scale insulin patient had sugars remain over 200 -NPH insulin ordered per home regimen 3. Depression/anxiety -Patient had recent discharge from psych facility -Continue Lexapro and Remeron -Continue as needed Ativan 4. Seizure disorder -Stable, continue phenobarbital, Topamax, Lamictal DVT prophylaxis-subcu Lovenox This patient was seen by Melissa Fuchs NP-C under the supervision of Dr. Rollins. Documented by User: Dr. Nina Rollins MD 04/30/21 18:50 Objective Data Lab / Micro Data Result Diagrams: 04/29/21 13:07 04/29/21 13:07 Charges/Coding Addendum Addendum: This patient was seen in conjunction with Melissa Fuchs NP. I have independently interviewed and examined the patient and reviewed pertinent historical, laboratory, and other data. I have reviewed her note and concur with her documentation Patient was seen and examined. No acute events Physical Exam: Gen: Morbidly obese not pale, not jaundiced CVS:HS I +II, regular, no murmurs RESP: Diminished at lung bases GI: BS present and normal, soft, nontender, no palpable organs EXT:No edema Assessment: 1. Debility 2. Type DM 3. Major depression/anxiety 4. Seizure disorder Plan: Continue on current home medication Discharge planning ongoing Visit Charges Inpatient E&M: 22956 Subs Hosp L2
[2021-04-30] MEDS: Insulin Lispro 100 UNIT/ML INSULN.PEN SC ×2 (15:27→20:52)
[2021-04-30 15:36] LABS: Bedside Glucose 285 mg/dL (70-110)
[2021-04-30] MEDS: Atorvastatin Calcium 80 MG Tablet PO (20:51)
[2021-04-30] MEDS: Mirtazapine 15 MG Tablet PO (20:52)
[2021-04-30] MEDS: Insulin NPH Human 100 UNITS/ML PEN 50 UNITS SC (20:52)
[2021-04-30] MEDS: MELATONIN 3 MG TABLET PO (20:53)
[2021-04-30 23:20] LABS: Bedside Glucose 219 mg/dL (70-110)
[2021-05-01 04:30] VITALS: BP 160/59; PULSE 58; RESP 18; TEMP 36.3; O2SAT 96
[2021-05-01] MEDS: Phenobarbital 32.4 MG Tablet PO ×3 (06:40→21:54)
[2021-05-01] MEDS: Insulin Lispro 100 UNIT/ML INSULN.PEN SC ×3 (06:42→21:52)
[2021-05-01 06:51] LABS: Bedside Glucose 156 mg/dL (70-110)
[2021-05-01 07:48] VITALS: O2SAT 95
[2021-05-01 09:38] VITALS: BP 160/75; PULSE 61; RESP 16; TEMP 36.5; O2SAT 99
--- NOTE | 2021-05-01 11:03 | CASEMGMT ---
BRANDI called [facility] to check on the status of patient's case. SW left a voice mail. However, SW received a call back. BRANDI was told that due to the changes in the PASRR they have an increase of 400% in cases. She said Ritchie is in the system, but has not been reviewed yet. She said they have hundreds of cases to review and send to the state. They will get to patient as soon as they can. Marcia Encinas BROKER AHSAN
[2021-05-01] MEDS: Carvedilol 12.5 MG Tablet 18.75 MG PO ×2 (11:49→21:54)
[2021-05-01] MEDS: Escitalopram Oxalate 10 MG Tablet PO (11:49)
[2021-05-01] MEDS: Lisinopril 10 MG Tablet PO (11:50)
[2021-05-01] MEDS: Loratadine 10 MG Tablet PO (11:50)
[2021-05-01] MEDS: lamoTRIgine 150 MG Tablet 300 MG PO ×2 (11:50→21:54)
[2021-05-01] MEDS: Cholecalciferol (VIT D3) 25 MCG TABLET (1,000 UNITS) 50 MCG PO (11:50)
[2021-05-01] MEDS: Clopidogrel Bisulfate 75 MG Tablet PO (11:50)
[2021-05-01] MEDS: LORazepam 0.5 MG Tablet PO ×2 (11:50→20:07)
[2021-05-01] MEDS: Topiramate 50 MG Tablet PO ×2 (11:50→21:52)
[2021-05-01] MEDS: Pantoprazole Sodium 20 MG Tablet PO ×2 (11:50→21:54)
[2021-05-01] MEDS: Enoxaparin 40 MG/0.4 ML Syringe SC (11:51)
[2021-05-01] MEDS: Aspirin 81 MG TAB.CHEW PO (11:51)
[2021-05-01] MEDS: Insulin NPH Human 100 UNITS/ML PEN 40 UNITS SC (11:51)
--- NOTE | 2021-05-01 12:33 | PCM.PROGNOTE ---
Documented by User: MELLO Lazaro 05/01/21 12:37 Subjective Subjective Patient seen and examined. Patient in bed watching TV no distress noted. Patient denies needs at this time Objective Data Objective Data Vital Signs: Vital Signs Temp Pulse Resp BP Pulse Ox 97.7 F L 61 16 160/75 H 99 05/01/21 09:38 05/01/21 09:38 05/01/21 09:38 05/01/21 09:38 05/01/21 09:38 Oxygen Delivery Method Room Air Weight: 240 lb 11.916 oz Body Mass Index (BMI) 41.3 Intake & Output: Intake and Output for Last 24 Hours 04/29/21 04/30/21 05/01/21 23:59 23:59 23:59 Intake Total 895 / 895 120 / 120 Output Total 200 / 200 1000 / 1000 300 / 300 Balance 695 / 695 -1000 / -1000 -180 / -180 Lab / Micro Data Result Diagrams: 04/29/21 13:07 04/29/21 13:07 Labs: Laboratory Results - last 24 hr 04/30/21 15:27: POC Glucose 285 H 04/30/21 20:50: POC Glucose 219 H 05/01/21 06:39: POC Glucose 156 H Physical Exam Const alert, oriented x3 and no apparent distress General Appearance: cooperative HEENT normocephalic and head/scalp atraumatic Neck supple and no JVD General: trachea midline Cardio regular rate, regular rhythm, S1 normal heart sound and S2 normal heart sound Peripheral Pulses: pulses 2+ throughout GI normal to inspection, nondistended, normoactive bowel sounds, soft to palpation and non-tender Extremity normal capillary refill and no clubbing, cyanosis or edema General Extremity: no tenderness to palpation of joints or extremities Skin General Skin Exam: no breakdown and turgor normal Lesions: no lesions Rashes: no rashes Neuro no focal motor deficits and no sensory deficits noted Speech: speech normal Motor Exam: general weakness Psych cooperative Appearance: appropriate Assessment & Plan Assessment/Plan (1) Debility: PLAN: 1. Debility -PT and OT following -Social work and case management consulted, awaiting pre-CERT for custodial placement due to patient's family unable able to care for patient 2. Diabetes mellitus type 2 -AC at bedtime blood sugars with sliding scale insulin ordered, blood sugars have improved with the restart of NPH insulin -NPH insulin ordered per home regimen 3. Depression/anxiety -Patient had recent discharge from psych facility -Continue Lexapro and Remeron -Continue as needed Ativan 4. Seizure disorder -Stable, continue phenobarbital, Topamax, Lamictal DVT prophylaxis-subcu Lovenox This patient was seen by Melissa Fuchs NP-C under the supervision of Dr. Oshea. Documented by User: Dr. Samantha Oshea DO 05/01/21 18:11 Subjective Subjective This patient was seen in conjunction with Melissa Fuchs NP. The following represents my independent history and physical examination. Please see below for any addendum the above. Patient has multiple complaints although when assessed thoroughly her complaints do not correlate with clinical exam. Objective Data Lab / Micro Data Result Diagrams: 04/29/21 13:07 04/29/21 13:07 Physical Exam Const alert, oriented x3 and no apparent distress Constitutional Narrative: Morbidly obese white female sitting up in bed watching television, appears comfortable, nontoxic General Appearance: cooperative and well developed HEENT normocephalic and head/scalp atraumatic Neck supple General: trachea midline Resp normal respiratory effort, normal air movement and clear to auscultation bilaterally Auscultation: Negative for rales, rhonchi or wheezes Cardio regular rate, regular rhythm, S1 normal heart sound, S2 normal heart sound, no murmurs, no rub and no gallops GI normal to inspection, nondistended, normoactive bowel sounds, soft to palpation, non-tender and non-distended Extremity Extremity Narrative: Trace bilateral lower extremity edema, no cyanosis or clubbing Neuro no focal motor deficits Speech: speech normal Psych Mood & Affect: anxious Assessment & Plan Assessment/Plan (1) Debility: (2) Depression with anxiety: (3) Declining functional status: PLAN: Assessment: Debility/functional decline DM-2 Seizure disorder Hyperlipidemia Hypertension Seasonal allergies Vitamin D deficiency GERD Plan: -Continue home antiepileptic medications -Blood pressure remains mildly elevated--> will increase lisinopril from 10 mg twice daily to 15 mg twice daily -Continue the rest of her home antihypertensives -Continue statin -Continue to monitor blood sugars -Continue home insulin regimen -Awaiting approval for discharge to long-term facility Charges/Coding Visit Charges Inpatient E&M: 20154 Subs Hosp L2
[2021-05-01 15:00] VITALS: BP 170/70; PULSE 70; RESP 16; TEMP 36.7; O2SAT 98
--- NOTE | 2021-05-01 15:37 | CASEMGMT ---
SW received a call from Vance at the [facility]. Patient was approved to go to [facility]. Patient cannot go yet as we are still waiting on her to get cleared by the state due to her mental health issues. Marcia FOREMAN
[2021-05-01] MEDS: Senna/Docusate Sodium 1 Tablet 2 TABLET PO (17:00)
[2021-05-01 17:11] LABS: Bedside Glucose 270 mg/dL (70-110)
[2021-05-01 21:00] VITALS: BP 151/66; PULSE 68; RESP 16; TEMP 36.8; O2SAT 97
[2021-05-01] MEDS: Insulin NPH Human 100 UNITS/ML PEN 50 UNITS SC (21:53)
[2021-05-01] MEDS: Atorvastatin Calcium 80 MG Tablet PO (21:53)
[2021-05-01] MEDS: MELATONIN 3 MG TABLET PO (21:54)
[2021-05-01] MEDS: Mirtazapine 15 MG Tablet PO (21:54)
[2021-05-01] MEDS: Lisinopril 5 MG Tablet 15 MG PO (21:55)
[2021-05-01 22:26] LABS: Bedside Glucose 228 mg/dL (70-110)
[2021-05-02 03:00] VITALS: BP 145/68; PULSE 63; RESP 18; TEMP 36.6; O2SAT 97
[2021-05-02] MEDS: LORazepam 0.5 MG Tablet PO ×3 (03:09→16:55)
[2021-05-02] MEDS: Phenobarbital 32.4 MG Tablet PO ×3 (05:38→21:34)
[2021-05-02 08:21] LABS: Bedside Glucose 97 mg/dL (70-110)
[2021-05-02 09:48] VITALS: BP 102/64; PULSE 67; RESP 18; TEMP 36.8; O2SAT 97
[2021-05-02] MEDS: Aspirin 81 MG TAB.CHEW PO (09:51)
[2021-05-02] MEDS: Topiramate 50 MG Tablet PO ×2 (09:52→21:34)
[2021-05-02] MEDS: Clopidogrel Bisulfate 75 MG Tablet PO (09:52)
[2021-05-02] MEDS: lamoTRIgine 150 MG Tablet 300 MG PO ×2 (09:52→21:34)
[2021-05-02] MEDS: Carvedilol 12.5 MG Tablet 18.75 MG PO ×2 (09:52→21:34)
[2021-05-02] MEDS: Loratadine 10 MG Tablet PO (09:52)
[2021-05-02] MEDS: Escitalopram Oxalate 10 MG Tablet PO (09:52)
[2021-05-02] MEDS: Pantoprazole Sodium 20 MG Tablet PO ×2 (09:52→21:34)
[2021-05-02] MEDS: Cholecalciferol (VIT D3) 25 MCG TABLET (1,000 UNITS) 50 MCG PO (09:52)
[2021-05-02] MEDS: Enoxaparin 40 MG/0.4 ML Syringe SC (09:53)
[2021-05-02] MEDS: Insulin Lispro 100 UNIT/ML INSULN.PEN SC ×3 (12:18→21:35)
[2021-05-02 12:26] LABS: Bedside Glucose 185 mg/dL (70-110)
--- NOTE | 2021-05-02 13:44 | PCM.PROGNOTE ---
Documented by User: MELLO Lazaro 05/02/21 13:51 Subjective Subjective Patient seen and examined. Patient up walking in hallway with walker with PT and OT. Patient denies needs at this time. Patient had questions regarding transfer to extended care facility, questions answered and patient voiced understanding. Objective Data Objective Data Vital Signs: Vital Signs Temp Pulse Resp BP Pulse Ox 98.3 F 67 18 102/64 97 05/02/21 09:48 05/02/21 09:48 05/02/21 09:48 05/02/21 09:48 05/02/21 09:48 Oxygen Delivery Method Room Air Weight: 240 lb 11.916 oz Body Mass Index (BMI) 41.3 Intake & Output: Intake and Output for Last 24 Hours 04/30/21 05/01/21 05/02/21 23:59 23:59 23:59 Intake Total 120 / 360 840 / 840 Output Total 1000 / 1000 1000 / 1700 1675 / 1675 Balance -1000 / -1000 -880 / -1340 -835 / -835 Lab / Micro Data Result Diagrams: 04/29/21 13:07 04/29/21 13:07 Labs: Laboratory Results - last 24 hr 05/01/21 16:58: POC Glucose 270 H 05/01/21 21:51: POC Glucose 228 H 05/02/21 08:11: POC Glucose 97 05/02/21 12:16: POC Glucose 185 H Physical Exam Const alert, oriented x3 and no apparent distress General Appearance: cooperative and well developed HEENT normocephalic and head/scalp atraumatic Eyes conjunctivae normal and no scleral icterus Neck supple and no JVD General: trachea midline Resp normal respiratory effort, normal air movement and clear to auscultation bilaterally Cardio regular rate, regular rhythm, S1 normal heart sound and S2 normal heart sound Peripheral Pulses: pulses 2+ throughout GI normal to inspection, nondistended, normoactive bowel sounds, soft to palpation and non-tender Extremity normal to inspection, normal capillary refill and no clubbing, cyanosis or edema General Extremity: no tenderness to palpation of joints or extremities Skin General Skin Exam: no breakdown and turgor normal Lesions: no lesions Rashes: no rashes Neuro no focal motor deficits and no sensory deficits noted Speech: speech normal Motor Exam: general weakness Psych cooperative Appearance: appropriate Mood & Affect: anxious Assessment & Plan Assessment/Plan (1) Debility: (2) Depression with anxiety: (3) Declining functional status: PLAN: 1. Debility -PT and OT following -Social work and case management consulted, awaiting pre-CERT for [place] [facility] placement due to patient's family unable able to care for patient 2. Diabetes mellitus type 2 -AC at bedtime blood sugars with sliding scale insulin ordered, blood sugars have improved with the restart of NPH insulin -NPH insulin ordered per home regimen 3. Depression/anxiety -Continue Lexapro and Remeron and as needed Ativan 4. Seizure disorder -Stable, continue phenobarbital, Topamax, Lamictal 5. Hypertension -Lisinopril increased to 15mg yesterday, VS stable DVT prophylaxis-subcu Lovenox This patient was seen by Melissa Fuchs NP-C under the supervision of Dr. Sutton. Documented by User: Dr. Twan Sutton MD 05/02/21 15:35 Objective Data Lab / Micro Data Result Diagrams: 04/29/21 13:07 04/29/21 13:07 Assessment & Plan Addt'l Comments This patient was seen in conjunction with Melissa Fuchs NP-C. I have independently interviewed and examined the patient and reviewed pertinent historical, laboratory, and other data. Please refer to Melissa Fuchs BOX LOADER-C note for details of this patient's presentation, findings, and recommendations. I have reviewed Melissa Fuchs NP-C note and concur with documented findings. In brief, patient is a 71-year-old lady admitted with progressive generalized weakness. Plan is for patient to be transferred to a long term facility pending insurance precertification Physical Examination: GENERAL: cooperative HEENT: Atraumatic; EYES; Anicteric, Normal Conjunctiva NECK; supple, normal thyroid, RESPIRATORY: Diminished to auscultation CARDIOVASCULAR: Regular S1 S2, GI: soft, normoactive bowel sounds, : No Renal angle tenderness; EXTREMITIES: No edema, no clubbing, MUSCULOSKELETAL: no muscle waisting NEURO: Awake; no lateralizing signs. SKIN: No Rash PSYCH; Flat affect Assessment: 1. Physical deconditioning 2. Diabetes mellitus type 2 3. Depression 4. Anxiety disorder 5. Seizure disorder 6. Essential hypertension 7. DVT prophylaxis Recommendations: 1. I have discussed the results of my overview and impressions with the patient 2. Options for management were reviewed Charges/Coding Visit Charges OBSV E&M: 80349 Initial observation care L2
--- NOTE | 2021-05-02 14:47 | CASEMGMT ---
SW spoke with patient. Introduced self and role at [facility]. SW let patient know that [facility] take her and [facility]. BRANDI explained that due to her mental health history the state has to approve her to go. The state wants to make sure we are not just shipping her off to a fci because she has a mental health diagnosis. SW told her it takes a little while and SW will let her know as soon as SW hears something. Marcia Encinas MSW AHSAN
--- NOTE | 2021-05-02 16:27 | CASEMGMT ---
Patient wanted to know if she would have her own room at [facility]. SW told her SW would have to find out and let her know. SW did call and leave a voice mail for Yanelis at [facility]. Patient was crying stating someone was supposed to get back to her about the prison. SW went back to patient's room and told patient SW has not heard back from [facility] yet. SW told her as soon as SW hears back SW will let her know. Marcia Encinas ELECTRONICS PARTS SALES REPRESENTATIVE AHSAN
[2021-05-02] MEDS: Lisinopril 5 MG Tablet 15 MG PO ×2 (16:55→21:34)
[2021-05-02 16:59] VITALS: BP 150/86; PULSE 70; RESP 18; TEMP 37.2; O2SAT 99
[2021-05-02 17:21] LABS: Bedside Glucose 278 mg/dL (70-110)
[2021-05-02] MEDS: Atorvastatin Calcium 80 MG Tablet PO (21:34)
[2021-05-02] MEDS: MELATONIN 3 MG TABLET PO (21:34)
[2021-05-02] MEDS: Insulin NPH Human 100 UNITS/ML PEN 50 UNITS SC (21:35)
[2021-05-02] MEDS: Mirtazapine 15 MG Tablet PO (21:35)
[2021-05-02 22:11] LABS: Bedside Glucose 258 mg/dL (70-110)
[2021-05-02 22:49] VITALS: BP 144/69; PULSE 79; RESP 18; TEMP 36.8; O2SAT 99
[2021-05-03 04:44] VITALS: BP 139/57; PULSE 62; RESP 16; TEMP 36.3; O2SAT 96
[2021-05-03] MEDS: Phenobarbital 32.4 MG Tablet PO ×3 (06:01→21:19)
--- NOTE | 2021-05-03 09:55 | PN_ITS ---
Documented by User: MELLO Lazaro 05/03/21 09:57 Subjective Subjective Patient seen and examined. Patient lying in bed no distress noted. Patient states she is feeling okay however anxious regarding pending transfer to nursing facility. Discussed with patient plan of care and that we are waiting for the okay from the state to get her transferred. Patient verbalizes understanding. Objective Data Objective Data Vital Signs: Vital Signs Temp Pulse Resp BP Pulse Ox 97.3 F L 62 16 139/57 H 96 05/03/21 04:44 05/03/21 04:44 05/03/21 04:44 05/03/21 04:44 05/03/21 04:44 Oxygen Delivery Method Room Air Weight: 240 lb 11.916 oz Body Mass Index (BMI) 41.3 Intake & Output: Intake and Output for Last 24 Hours 05/01/21 05/02/21 05/03/21 23:59 23:59 23:59 Intake Total 120 / 360 840 / 1080 300 / 300 Output Total 1000 / 1700 1675 / 1675 Balance -880 / -1340 -835 / -595 300 / 300 Lab / Micro Data Result Diagrams: 04/29/21 13:07 04/29/21 13:07 Labs: Laboratory Results - last 24 hr 05/02/21 12:16: POC Glucose 185 H 05/02/21 16:50: POC Glucose 278 H 05/02/21 21:31: POC Glucose 258 H Physical Exam Const alert, oriented x3 and no apparent distress General Appearance: cooperative and well developed HEENT normocephalic and head/scalp atraumatic Eyes conjunctivae normal and no scleral icterus Neck supple and no JVD General: trachea midline Resp normal respiratory effort, normal air movement and clear to auscultation bilaterally Cardio regular rate, regular rhythm, S1 normal heart sound and S2 normal heart sound Peripheral Pulses: pulses 2+ throughout GI normal to inspection, nondistended, normoactive bowel sounds, soft to palpation and non-tender Extremity normal to inspection, normal capillary refill and no clubbing, cyanosis or edema Extremity Narrative: Trace bilateral lower extremity edema, no cyanosis or clubbing General Extremity: no tenderness to palpation of joints or extremities Skin General Skin Exam: no breakdown and turgor normal Lesions: no lesions Rashes: no rashes Neuro no focal motor deficits and no sensory deficits noted Speech: speech normal Motor Exam: general weakness Psych cooperative Appearance: appropriate Mood & Affect: anxious Assessment & Plan Assessment/Plan (1) Debility: (2) Depression with anxiety: (3) Declining functional status: PLAN: 1. Debility -PT and OT following -Social work and case management consulted, awaiting pre-CERT for detention placement due to patient's family unable able to care for patient 2. Diabetes mellitus type 2 -AC at bedtime blood sugars with sliding scale insulin ordered, blood sugars have improved with the restart of NPH insulin -NPH insulin ordered per home regimen 3. Depression/anxiety -Continue Lexapro and Remeron and as needed Ativan 4. Seizure disorder -Stable, continue phenobarbital, Topamax, Lamictal 5. Hypertension -VS stable -Continue current regimen DVT prophylaxis-subcu Lovenox This patient was seen by Melissa Fuchs NP-C under the supervision of Dr. Sutton. Documented by User: Dr. Twan Sutton MD 05/03/21 12:41 Objective Data Lab / Micro Data Result Diagrams: 04/29/21 13:07 04/29/21 13:07 Assessment & Plan Addt'l Comments This patient was seen in conjunction with Melissa Fuchs NP-C. I have independently interviewed and examined the patient and reviewed pertinent historical, laboratory, and other data. Please refer to Melissa Fuchs VP DIRECTOR OF CREATIVE STRATEGY-C note for details of this patient's presentation, findings, and recommendations. I have reviewed Melissa Fuchs NP-C note and concur with documented findings. In brief, patient is a 71-year-old lady admitted with progressive generalized weakness. Plan is for patient to be transferred to a long term facility pending insurance precertification 05/03/2021; awaiting insurance precertification prior to transfer to long term facility Physical Examination: GENERAL: cooperative HEENT: Atraumatic; EYES; Anicteric, Normal Conjunctiva NECK; supple, normal thyroid, RESPIRATORY: Diminished to auscultation CARDIOVASCULAR: Regular S1 S2, GI: soft, normoactive bowel sounds, : No Renal angle tenderness; EXTREMITIES: No edema, no clubbing, MUSCULOSKELETAL: no muscle waisting NEURO: Awake; no lateralizing signs. SKIN: No Rash PSYCH; Flat affect Assessment: 1. Physical deconditioning 2. Diabetes mellitus type 2 3. Depression 4. Anxiety disorder 5. Seizure disorder 6. Essential hypertension 7. DVT prophylaxis Recommendations: 1. I have discussed the results of my overview and impressions with the patient 2. Options for management were reviewed Charges/Coding Visit Charges OBSV E&M: 47365 Subsequent observation care L2
[2021-05-03 10:00] VITALS: BP 153/68; PULSE 60; RESP 16; TEMP 36.4; O2SAT 99
[2021-05-03] MEDS: Aspirin 81 MG TAB.CHEW PO (10:00)
[2021-05-03] MEDS: Clopidogrel Bisulfate 75 MG Tablet PO (10:01)
[2021-05-03] MEDS: Escitalopram Oxalate 10 MG Tablet PO (10:01)
[2021-05-03] MEDS: Loratadine 10 MG Tablet PO (10:01)
[2021-05-03] MEDS: lamoTRIgine 150 MG Tablet 300 MG PO ×2 (10:01→21:19)
[2021-05-03] MEDS: Enoxaparin 40 MG/0.4 ML Syringe SC (10:01)
[2021-05-03] MEDS: Carvedilol 12.5 MG Tablet 18.75 MG PO ×2 (10:01→21:18)
[2021-05-03] MEDS: Cholecalciferol (VIT D3) 25 MCG TABLET (1,000 UNITS) 50 MCG PO (10:02)
[2021-05-03] MEDS: Lisinopril 5 MG Tablet 15 MG PO ×2 (10:02→21:19)
[2021-05-03] MEDS: Pantoprazole Sodium 20 MG Tablet PO ×2 (10:02→21:19)
[2021-05-03] MEDS: Topiramate 50 MG Tablet PO ×2 (10:02→21:19)
[2021-05-03 10:16] LABS: Bedside Glucose 134 mg/dL (70-110)
[2021-05-03] MEDS: Insulin Lispro 100 UNIT/ML INSULN.PEN SC ×2 (11:21→16:15)
[2021-05-03 11:26] LABS: Bedside Glucose 201 mg/dL (70-110)
[2021-05-03] MEDS: LORazepam 0.5 MG Tablet PO ×2 (13:14→22:40)
[2021-05-03 16:11] VITALS: BP 160/62; PULSE 70; RESP 18; TEMP 36.3; O2SAT 97
[2021-05-03 16:41] LABS: Bedside Glucose 338 mg/dL (70-110)
[2021-05-03 21:20] VITALS: BP 147/76; PULSE 75; RESP 18; TEMP 37; O2SAT 99
[2021-05-03] MEDS: MELATONIN 3 MG TABLET PO (21:20)
[2021-05-03] MEDS: Insulin NPH Human 100 UNITS/ML PEN 50 UNITS SC (21:20)
[2021-05-03] MEDS: Atorvastatin Calcium 80 MG Tablet PO (21:21)
[2021-05-03] MEDS: Mirtazapine 15 MG Tablet PO (21:21)
[2021-05-03 22:00] LABS: Bedside Glucose 258 mg/dL (70-110)
[2021-05-04 03:20] VITALS: BP 142/68; PULSE 63; RESP 18; TEMP 36.1; O2SAT 95
[2021-05-04] MEDS: Phenobarbital 32.4 MG Tablet PO ×3 (05:45→21:22)
[2021-05-04 08:37] VITALS: BP 147/66; PULSE 58; RESP 18; TEMP 36.3; O2SAT 97
[2021-05-04] MEDS: Aspirin 81 MG TAB.CHEW PO (08:41)
[2021-05-04] MEDS: Carvedilol 12.5 MG Tablet 18.75 MG PO ×2 (08:42→21:16)
[2021-05-04] MEDS: Loratadine 10 MG Tablet PO (08:42)
[2021-05-04] MEDS: Pantoprazole Sodium 20 MG Tablet PO ×2 (08:43→21:19)
[2021-05-04] MEDS: Escitalopram Oxalate 10 MG Tablet PO (08:44)
[2021-05-04] MEDS: Lisinopril 5 MG Tablet 15 MG PO ×2 (08:44→21:18)
[2021-05-04] MEDS: Cholecalciferol (VIT D3) 25 MCG TABLET (1,000 UNITS) 50 MCG PO (08:44)
[2021-05-04] MEDS: lamoTRIgine 150 MG Tablet 300 MG PO ×2 (08:44→21:17)
[2021-05-04] MEDS: Topiramate 50 MG Tablet PO ×2 (08:45→21:19)
[2021-05-04] MEDS: Clopidogrel Bisulfate 75 MG Tablet PO (08:45)
[2021-05-04] MEDS: Enoxaparin 40 MG/0.4 ML Syringe SC (08:46)
--- NOTE | 2021-05-04 08:53 | CASEMGMT ---
Late note. Note from Saturday05-03-21 SW called [facility] regarding status of patient's case. She said patient did trip the screen for a review. It is set for review pending the reviewer. Then it will have to go to the state for the final decision. She said that it could be 3-5 days before an answer is received. Marcia Encinas SLIP INJECTOR AND APPLICATOR PSYCHIATRIC CLINICAL NURSE SPECIALIST
[2021-05-04 08:56] LABS: Bedside Glucose 143 mg/dL (70-110)
[2021-05-04] MEDS: Insulin Lispro 100 UNIT/ML INSULN.PEN SC ×3 (11:03→21:14)
[2021-05-04 11:36] LABS: Bedside Glucose 231 mg/dL (70-110)
--- NOTE | 2021-05-04 12:03 | PCM.PN.HOSP ---
Documented by User: Megan Shaffer NP, EDUCATION PROGRAM ASSOCIATE-C 05/04/21 12:14 Subjective Subjective Patient seen and examined. States she does not feel well however denies specific complaints. Tearful that she does not have acceptance at outside facility yet. Provided support. Objective Data Objective Data Vital Signs: Vital Signs Temp Pulse Resp BP Pulse Ox 97.3 F L 58 L 18 147/66 H 97 05/04/21 08:37 05/04/21 08:37 05/04/21 08:37 05/04/21 08:37 05/04/21 08:37 Oxygen Delivery Method Room Air Weight: 240 lb 11.916 oz Body Mass Index (BMI) 41.3 Intake & Output: Intake and Output for Last 24 Hours 05/02/21 05/03/21 05/04/21 23:59 23:59 23:59 Intake Total 840 / 1080 300 / 520 220 / 220 Output Total 1675 / 1675 Balance -835 / -595 300 / 520 220 / 220 Lab / Micro Data Result Diagrams: 04/29/21 13:07 04/29/21 13:07 Labs: Laboratory Results - last 24 hr 05/03/21 16:09: POC Glucose 338 H 05/03/21 21:15: POC Glucose 258 H 05/04/21 08:38: POC Glucose 143 H 05/04/21 11:02: POC Glucose 231 H Physical Exam Const alert, oriented x3 and no apparent distress Orientation / Consciousness: awake, oriented to person, oriented to place and oriented to time HEENT normocephalic and moist oral mucous membranes Eyes PERRL, EOMs intact bilaterally and conjunctivae normal Neck no lymphadenopathy Resp normal respiratory effort and clear to auscultation bilaterally Cardio regular rate, regular rhythm and no murmurs Peripheral Pulses: pulses 2+ throughout GI normal to inspection, nondistended, normoactive bowel sounds, non-tender and non-distended Extremity normal to inspection Skin no rashes or lesions noted Lesions: no lesions Rashes: no rashes Trauma: no lacerations or abrasions Neuro CN's II-XII intact bilaterally, no focal motor deficits, no sensory deficits noted and deep tendon reflexes 2+ bilaterally Psych Mood & Affect: flat affect Assessment & Plan Assessment/Plan (1) Debility: PLAN: 1. Debility, functional decline-PT/OT. Awaiting pre-cert for SNF placement. 2. Type 2 diabetes [id number] with sliding scale insulin. Continue home insulin regimen. 3. Anxiety/depression-continue buspirone, escitalopram. 4. Hypertension-stable, continue lisinopril, carvedilol. 5. Hyperlipidemia-continue statin. 6. Seizure disorder-on phenobarbital, Topamax, Lamictal. 7. GERD- Continue PPI. DVT prophylaxis-Lovenox subcu Discharge planning: Awaiting SNF acceptance. This patient was seen by Megan Shaffer NP-C under the supervision of Dr. Sutton. Documented by User: Dr. Twan Sutton MD 05/04/21 12:31 Objective Data Lab / Micro Data Result Diagrams: 04/29/21 13:07 04/29/21 13:07 Assessment & Plan Addt'l Comments This patient was seen in conjunction with Megan Shaffer NP-C. I have independently interviewed and examined the patient and reviewed pertinent historical, laboratory, and other data. Please refer to Megan Shaffer EDUCATION PROGRAM ASSOCIATE-C note for details of this patient's presentation, findings, and recommendations. I have reviewed Megan Shaffer NP-C note and concur with documented findings. In brief, patient is a 71-year-old lady admitted with progressive generalized weakness. Plan is for patient to be transferred to a nursing home facility pending insurance precertification 05/03/2021; awaiting insurance precertification prior to transfer to nursing home facility 05/03/2021; seen no change in condition. Still awaiting approval prior to transfer to nursing home facility Physical Examination: GENERAL: cooperative HEENT: Atraumatic; EYES; Anicteric, Normal Conjunctiva NECK; supple, normal thyroid, RESPIRATORY: Diminished to auscultation CARDIOVASCULAR: Regular S1 S2, GI: soft, normoactive bowel sounds, : No Renal angle tenderness; EXTREMITIES: No edema, no clubbing, MUSCULOSKELETAL: no muscle waisting NEURO: Awake; no lateralizing signs. SKIN: No Rash PSYCH; Flat affect Assessment: 1. Physical deconditioning 2. Diabetes mellitus type 2 3. Depression 4. Anxiety disorder 5. Seizure disorder 6. Essential hypertension 7. DVT prophylaxis Recommendations: 1. I have discussed the results of my overview and impressions with the patient 2. Options for management were reviewed Charges/Coding Visit Charges Inpatient E&M: 27733 Subs Hosp L2
--- NOTE | 2021-05-04 13:17 | CASEMGMT ---
BRANDI received a call from Claudia Aparicio with [facility]. She is asking how she can get in contact with the patient. SW gave her the phone number to patient's room. She will conduct her interview and submit her information to the state. Marcia FOREMAN
[2021-05-04 14:18] VITALS: BP 136/66; PULSE 61; RESP 18; TEMP 36.6; O2SAT 98
[2021-05-04 17:16] LABS: Bedside Glucose 213 mg/dL (70-110)
[2021-05-04 20:02] VITALS: BP 156/65; PULSE 68; RESP 18; TEMP 36.7; O2SAT 100
[2021-05-04] MEDS: LORazepam 0.5 MG Tablet PO (20:09)
[2021-05-04] MEDS: Atorvastatin Calcium 80 MG Tablet PO (21:18)
[2021-05-04] MEDS: Mirtazapine 15 MG Tablet PO (21:19)
[2021-05-04] MEDS: Insulin NPH Human 100 UNITS/ML PEN 50 UNITS SC (22:12)
[2021-05-05 00:10] LABS: Bedside Glucose 246 mg/dL (70-110)
[2021-05-05 01:14] VITALS: BP 156/81; PULSE 78; RESP 14; TEMP 36.7; O2SAT 98
[2021-05-05 05:30] VITALS: BP 154/62; PULSE 69; RESP 16; TEMP 36.6; O2SAT 97
[2021-05-05] MEDS: LORazepam 0.5 MG Tablet PO ×2 (05:32→20:36)
[2021-05-05] MEDS: Senna/Docusate Sodium 1 Tablet 2 TABLET PO (05:32)
[2021-05-05] MEDS: Phenobarbital 32.4 MG Tablet PO ×3 (05:32→20:36)
--- NOTE | 2021-05-05 05:40 | EKG12_ITS ---
Test Reason : CP Blood Pressure : / mmHG Vent. Rate : 067 BPM Atrial Rate : 067 BPM P-R Int : 234 ms QRS Dur : 120 ms QT Int : 482 ms P-R-T Axes : 051 -55 073 degrees QTc Int : 509 ms Sinus rhythm with 1st degree A-V block Left axis deviation Incomplete left bundle branch block Abnormal ECG Confirmed by BECCA ALEJANDRO, GEOVANNA ([id number]), medical editor CELINA RODRIGUES ([id number]) on 05/08/2021 1:46:57 PM Referred By: DR KRISHNAN Confirmed By:GEOVANNA HUDSON MD
[2021-05-05] MEDS: Mag Hydrox/Al Hydrox/Simeth 30 ML UDC PO (06:23)
[2021-05-05] MEDS: Insulin Lispro 100 UNIT/ML INSULN.PEN SC ×3 (06:29→20:51)
[2021-05-05 06:36] LABS: Bedside Glucose 190 mg/dL (70-110)
--- NOTE | 2021-05-05 08:50 | NURSING ---
This nurse to room to complete assessment and give AM meds. Pt pocketed meds instead of swallowing and then spit them out. Pt became very agitated and started yelling about the hospital trying to drug her. Pt got up and proceeded to ambulate down the hallway, yelling into other pt rooms saying where is the exit, let me out of here. Assistance provided by additional staff to direct pt back to her room.
[2021-05-05] MEDS: Enoxaparin 40 MG/0.4 ML Syringe SC (08:55)
--- NOTE | 2021-05-05 09:00 | NURSING ---
This RN heard a patient yelling in the hallway on PCU. Patient screaming Help, they are trying to hurt me. RN's in the hallway with patient who was not following commands, yelling, attempting to hit and kick staff. Deescalation techniques attempted-including talking to patient, attempting to reason with patient to no avail. Patient was placed in a wheelchair to prevent herself from injuring herself or others. patient continued to scream, attempt to kick and hit staff. Six RN's had to assist the patient back to the patient's room. Patient continued to scream for help and that staff were kidnapping her. Patient placed in bed and several attempts were made to calm patient and try to talk to patient. Patient acting belligerent, aggressive and not following commands. Soft restraints applied at 0915 to bilateral wrists and ankles for safety. Staff remained in room to assist. This RN called patient's son Miguel Ángel on the portable phone in room to update on his mother's current condition. Miguel Ángel stated to this RN She has not been right since her stroke. This is what she does and this is why my sister and I cannot have her live with us. We all have kids and she gets like this. This RN held the phone to patient's ear to speak to son Miguel Ángel. Miguel Ángel attempted to calm the patient and talk to her. Patient continued to scream and ask Miguel Ángel to help her. This RN then spoke to Miguel Ángel and contacted the Marcia who took the phone and spoke to the son at length. Dr. Sutton notified at this time to update on patient status. Vital signs attained per RN at bedside.
[2021-05-05] MEDS: Haloperidol Lactate 5 MG/ML Vial 2 MG IM ×2 (09:34→10:02)
[2021-05-05] MEDS: LORazepam 2 MG/ML Syringe 1 MG IV (10:03)
[2021-05-05] MEDS: 0.9% Saline Lock 10 ML Syringe IV (10:04)
--- NOTE | 2021-05-05 11:06 | CASEMGMT ---
Patient had an episode this morning requiring numerous people to calm her down as well as medication. She was stating we are drugging her and holding her hostage. Per PCU [place] patient was describing vividly how she was going to kill the aide that was in the room. PCU loading manager Magui had patient's son Miguel Ángel on the phone. BRANDI went over the original plan for patient of [facility], [place] has approved her, but we are waiting on the state to approve her due to her psych history. He apologized numerous times. He said that is why she cannot stay with them. She turns against anyone. He said they have children and it is not good for them to see that. He asked that we keep him updated. Physician would like crisis consulted for saritha psych placement. SW called ED BRANDI Lucy to see if she would have time to see patient. She asked if SW could consult crisis and she will come up as soon as she can. She said if she gets to it first that is fine or if crisis does that is fine too. BRANDI called crisis and spoke with Kiara regarding referral. BRANDI explained patient's event this am. She said it sounds behavioral and asked if she is hallucinating or delusional. BRANDI told her she is not other than thinking we are drugging her and holding her hostage. They said that isn't necessarily delusional. Kaira said she will be in to see patient. Marcia Encinas BARREL LINER AHSAN
[2021-05-05 11:15] VITALS: BP 154/65; PULSE 76; RESP 18; TEMP 36.4; O2SAT 94
[2021-05-05 12:20] LABS: Bedside Glucose 265 mg/dL (70-110)
[2021-05-05 13:15] VITALS: BP 152/65; PULSE 67; RESP 18; TEMP 36.4; O2SAT 96
--- NOTE | 2021-05-05 13:18 | PCM.PN.HOSP ---
Documented by User: Megan Shaffer NP, MOBILE HOME INSTALLER-C 05/05/21 13:32 Subjective Subjective Patient seen and examined. Currently resting comfortably in bed, in four-point soft restraints due to earlier significant agitation and aggression towards staff. Per nursing report patient not following commands and yelling and attempting to hit and kick staff. Patient reported to scream out that staff is kidnapping her. Patient was required to be placed in soft restraints for patient and staff safety. Sitter at bedside. Crisis consult placed. Objective Data Objective Data Vital Signs: Vital Signs Temp Pulse Resp BP Pulse Ox 97.6 F L 76 18 154/65 H 94 05/05/21 11:15 05/05/21 11:15 05/05/21 11:15 05/05/21 11:15 05/05/21 11:15 Oxygen Delivery Method Room Air Weight: 240 lb 11.916 oz Body Mass Index (BMI) 41.3 Intake & Output: Intake and Output for Last 24 Hours 05/03/21 05/04/21 05/05/21 23:59 23:59 23:59 Intake Total 300 / 520 860 / 1160 720 / 720 Output Total 1800 / 2250 650 / 650 Balance 300 / 520 -940 / -1090 70 / 70 Lab / Micro Data Result Diagrams: 04/29/21 13:07 04/29/21 13:07 Labs: Laboratory Results - last 24 hr 05/04/21 16:31: POC Glucose 213 H 05/04/21 21:14: POC Glucose 246 H 05/05/21 06:28: POC Glucose 190 H 05/05/21 11:57: POC Glucose 265 H Physical Exam Const alert and no apparent distress Orientation / Consciousness: awake HEENT normocephalic and moist oral mucous membranes Eyes PERRL, EOMs intact bilaterally and conjunctivae normal Neck no lymphadenopathy Resp normal respiratory effort and clear to auscultation bilaterally Cardio regular rate, regular rhythm and no murmurs Peripheral Pulses: pulses 2+ throughout GI normal to inspection, nondistended, normoactive bowel sounds, non-tender and non-distended Extremity normal to inspection Skin no rashes or lesions noted Lesions: no lesions Rashes: no rashes Trauma: no lacerations or abrasions Neuro CN's II-XII intact bilaterally, no focal motor deficits, no sensory deficits noted and deep tendon reflexes 2+ bilaterally Psych Psych Narrative: Previously agitated and aggressive, during assessment patient mental status improved. Assessment & Plan Assessment/Plan (1) Debility: PLAN: 1. Debility, functional decline-PT/OT. Initially planned for SNF placement however patient became aggressive and agitated, recent psychiatric admission. Crisis eval pending. 2. Anxiety/depression, unclear additional psychiatric history? With significant agitation and aggression towards staff-continue buspirone, escitalopram. Will request records from psychiatric facility patient was admitted to approximately 1 month prior. Crisis eval pending. Currently in soft restraints for patient and staff safety. We will continue to reevaluate need. 3. Type 2 diabetes codzznkm-Emaj-Kwoal with sliding scale insulin. Continue home insulin regimen. 4. Hypertension-stable, continue lisinopril, carvedilol. 5. Hyperlipidemia-continue statin. 6. Seizure disorder-on phenobarbital, Topamax, Lamictal. 7. GERD- Continue PPI. DVT prophylaxis-Lovenox subcu Discharge planning: Crisis eval pending, possible psychiatric placement. This patient was seen by MELLO Stack under the supervision of Dr. Sutton. Documented by User: Dr. Twan Sutton MD 05/05/21 14:37 Objective Data Lab / Micro Data Result Diagrams: 04/29/21 13:07 04/29/21 13:07 Assessment & Plan Addt'l Comments This patient was seen in conjunction with Megan RAMIREZC. I have independently interviewed and examined the patient and reviewed pertinent historical, laboratory, and other data. Please refer to Megan Shaffer NP-C note for details of this patient's presentation, findings, and recommendations. I have reviewed Megan Shaffer NP-C note and concur with documented findings. In brief, patient is a 71-year-old lady admitted with progressive generalized weakness. Plan is for patient to be transferred to a intermediate facility pending insurance precertification 05/03/2021; awaiting insurance precertification prior to transfer to intermediate facility 05/04/2021; seen no change in condition. Still awaiting approval prior to transfer to intermediate facility 05/05/2021; patient seen extremely agitated had to be placed in four-point restraint. An order was also given for patient to receive 4 mg of IM Haldol as well as 1 mg of IV Ativan. As part of patient's management ordered checks x-ray as well as urinalysis to rule out infectious etiology of delirium.. Consult was placed to the crisis team. Patient will probably benefit from going to an inpatient psychiatric facility Physical Examination: GENERAL: cooperative HEENT: Atraumatic; EYES; Anicteric, Normal Conjunctiva NECK; supple, normal thyroid, RESPIRATORY: Diminished to auscultation CARDIOVASCULAR: Regular S1 S2, GI: soft, normoactive bowel sounds, : No Renal angle tenderness; EXTREMITIES: No edema, no clubbing, MUSCULOSKELETAL: no muscle waisting NEURO: Awake; no lateralizing signs. SKIN: No Rash PSYCH; Flat affect Assessment: 1. Physical deconditioning 2. Diabetes mellitus type 2 3. Depression 4. Anxiety disorder 5. Seizure disorder 6. Essential hypertension 7. DVT prophylaxis 8. Acute delirium 9. Suspected bipolar disorder Recommendations: 1. I have discussed the results of my overview and impressions with the patient 2. Options for management were reviewed Charges/Coding Visit Charges Inpatient E&M: 78893 Subs Hosp L3
[2021-05-05 15:15] VITALS: BP 155/56; PULSE 70; RESP 18; TEMP 36.4; O2SAT 97
--- NOTE | 2021-05-05 15:53 | CASEMGMT ---
SW spoke with Kiara from crisis after she spoke with patient. She said that this is a weak case for psych admission, but she will try. Marcia Encinas METAL ALLOY SCIENTIST AHSAN
--- NOTE | 2021-05-05 17:00 | RAD_ITS ---
STUDY: X-RAY CHEST REASON FOR EXAM: Female, 71 years old. encephalopathy TECHNIQUE: Single AP portable view of the chest. COMPARISON: 03/13/2021 FINDINGS: The lungs are clear and expanded. There is no demonstrated pleural abnormality. Normal size heart. Normal mediastinum and jane. Normal visualized pulmonary arteries. Normal visualized aortic arch and descending thoracic aorta. Normal visualized thoracic spine. Status post right shoulder reverse arthroplasty. There is no demonstrated abnormality of the visualized soft tissue structures of the upper abdomen. RAD/Chest 1 View (Portable) IMPRESSION: No active disease. Electronically Signed: Deep Echols MD at 8:33 EDT Tel , Service support ,
[2021-05-05 17:30] LABS: Bedside Glucose 232 mg/dL (70-110)
[2021-05-05 18:58] LABS: Bacteria 0 SEEN /hpf (None Seen); Mucous, Urine 0 SEEN /hpf (<or=2+); Red Blood Cells-Urine 0 SEEN /hpf (0-5)
[2021-05-05 19:02] LABS: Color, Urine Yellow (Yellow); Glucose, Dipstick Normal (Normal); Ketone-Dipstick Negative (Negative); Leukocyte Esterase-Dipstick 25 /ul (Negative); Nitrite-Dipstick Negative (Negative); Occult Blood-Urine Negative /ul (Negative); Protein-Dipstick 30 mg/dl (Negative); Urine Bilirubin Dipstick Negative (Negative); Urine Clarity Clear (Clear); Urine Urobilinogen Normal (Normal)
[2021-05-05 19:25] LABS: Squamous Epithelial Cells - UA 0-5 SEEN /hpf (5-10); White Blood Cells 0-5 SEEN /hpf (0-5)
[2021-05-05] MEDS: Carvedilol 12.5 MG Tablet 18.75 MG PO (20:36)
[2021-05-05] MEDS: lamoTRIgine 150 MG Tablet 300 MG PO (20:38)
[2021-05-05] MEDS: Atorvastatin Calcium 80 MG Tablet PO (20:39)
[2021-05-05] MEDS: Pantoprazole Sodium 20 MG Tablet PO (20:39)
[2021-05-05] MEDS: Mirtazapine 15 MG Tablet PO (20:41)
[2021-05-05] MEDS: Lisinopril 5 MG Tablet 15 MG PO (20:42)
[2021-05-05] MEDS: Topiramate 50 MG Tablet PO (20:42)
[2021-05-05] MEDS: Insulin NPH Human 100 UNITS/ML PEN 50 UNITS SC (20:51)
[2021-05-05 21:03] VITALS: BP 187/67; PULSE 69; RESP 18; TEMP 36.7; O2SAT 97
[2021-05-05 22:05] LABS: Bedside Glucose 265 mg/dL (70-110)
[2021-05-05 23:44] LABS: Amphetamine Urine VISTA NEGATIVE (<1000 ng/mL); Barbiturate Urine VISTA POSITIVE (< 200 ng/mL); Benzodiazepine Urine VISTA NEGATIVE (< 200 ng/mL); Cocaine Urine VISTA NEGATIVE (< 300 ng/mL); Ecstacy Urine VISTA NEGATIVE (< 500 ng/mL); Methadone Urine VISTA NEGATIVE (< 300 ng/mL); PCP Urine VISTA NEGATIVE (< 25 ng/mL); THC Urine VISTA NEGATIVE (< 50 ng/mL); Vista UDS pH Range 6
[2021-05-06] VITALS (7 sets, daily range): BP systolic 145–167; BP diastolic 55–70; PULSE 60–74; RESP 16–18; TEMP 36.4–36.6; O2SAT 95–99
[2021-05-06] MEDS: Phenobarbital 32.4 MG Tablet PO ×3 (07:00→21:27)
[2021-05-06] MEDS: Aspirin 81 MG TAB.CHEW PO (09:25)
[2021-05-06] MEDS: Lisinopril 5 MG Tablet 15 MG PO (09:25)
[2021-05-06] MEDS: lamoTRIgine 150 MG Tablet 300 MG PO ×2 (09:25→21:16)
[2021-05-06] MEDS: Pantoprazole Sodium 20 MG Tablet PO ×2 (09:25→21:17)
[2021-05-06] MEDS: Topiramate 50 MG Tablet PO ×2 (09:25→21:16)
[2021-05-06] MEDS: Cholecalciferol (VIT D3) 25 MCG TABLET (1,000 UNITS) 50 MCG PO (09:25)
[2021-05-06] MEDS: Clopidogrel Bisulfate 75 MG Tablet PO (09:25)
[2021-05-06] MEDS: Carvedilol 12.5 MG Tablet 18.75 MG PO (09:25)
[2021-05-06] MEDS: Loratadine 10 MG Tablet PO (09:25)
[2021-05-06] MEDS: Enoxaparin 40 MG/0.4 ML Syringe SC (09:26)
[2021-05-06] MEDS: Escitalopram Oxalate 10 MG Tablet PO (09:26)
[2021-05-06] MEDS: LORazepam 0.5 MG Tablet PO ×3 (09:31→22:26)
[2021-05-06 11:26] LABS: Bedside Glucose 146 mg/dL (70-110)
--- NOTE | 2021-05-06 12:05 | PN.HOSP_ITS ---
Documented by User: Megan Shaffer NP, EARLY CHILDHOOD AIDE CLASSROOM-C 05/06/21 12:19 Subjective Subjective Patient seen and examined. Pleasant, calm and cooperative today. Awaiting psychiatric placement. Objective Data Objective Data Vital Signs: Vital Signs Temp Pulse Resp BP Pulse Ox 97.6 F L 66 18 160/70 H 98 05/06/21 09:24 05/06/21 09:24 05/06/21 09:24 05/06/21 09:24 05/06/21 09:24 Oxygen Delivery Method Room Air Weight: 240 lb 11.916 oz Body Mass Index (BMI) 41.3 Intake & Output: Intake and Output for Last 24 Hours 05/04/21 05/05/21 05/06/21 23:59 23:59 23:59 Intake Total 860 / 1160 1320 / 1320 300 / 300 Output Total 1800 / 2250 1000 / 1000 900 / 900 Balance -940 / -1090 320 / 320 -600 / -600 Lab / Micro Data Result Diagrams: 04/29/21 13:07 04/29/21 13:07 Labs: Laboratory Results - last 24 hr 05/05/21 11:57: POC Glucose 265 H 05/05/21 17:24: POC Glucose 232 H 05/05/21 18:24: Urine Color Yellow, Urine Clarity Clear, Urine pH 7.0, Ur Specific [place] 1.010, Urine Protein 30 H, Urine Glucose (UA) Normal, Urine Ketones Negative, Urine Occult Blood Negative, Urine Nitrite Negative, Urine Bilirubin Negative, Urine Urobilinogen Normal, Ur Leukocyte Esterase 25 H, Urine RBC 0 SEEN, Urine WBC 0-5 SEEN, Ur Squamous Epith Cells 0-5 SEEN, Urine Bacteria 0 SEEN, Urine Mucus 0 SEEN 05/05/21 18:24: Urine Opiates Screen NEGATIVE, Urine Methadone Screen NEGATIVE, Ur Barbiturates Screen POSITIVE H, Ur Phencyclidine Scrn NEGATIVE, Ur Amphetamines Screen NEGATIVE, U Methamphetamin-MDMA NEGATIVE, U Benzodiazepines Scrn NEGATIVE, Urine Cocaine Screen NEGATIVE, U Cannabinoids Screen NEGATIVE, Ur Drug Screen Comment 05/05/21 20:48: POC Glucose 265 H 05/06/21 00:29: COVID-19 (SHIREEN) Not Detected 05/06/21 11:17: POC Glucose 146 H Radiography Diagnostic Testing: Radiology Impression Chest X-Ray 05/05/21 17:00 IMPRESSION: No active disease. Electronically Signed: Deep Echols MD at 8:33 EDT Tel , Service support , Physical Exam Const alert, oriented x3 and no apparent distress Orientation / Consciousness: awake, oriented to person, oriented to place and oriented to time HEENT normocephalic and moist oral mucous membranes Eyes PERRL, EOMs intact bilaterally and conjunctivae normal Neck no lymphadenopathy Resp normal respiratory effort and clear to auscultation bilaterally Cardio regular rate, regular rhythm and no murmurs Peripheral Pulses: pulses 2+ throughout GI normal to inspection, nondistended, normoactive bowel sounds, non-tender and non-distended Extremity normal to inspection Skin no rashes or lesions noted Lesions: no lesions Rashes: no rashes Trauma: no lacerations or abrasions Neuro CN's II-XII intact bilaterally, no focal motor deficits, no sensory deficits noted and deep tendon reflexes 2+ bilaterally Psych mental status grossly normal and affect normal Assessment & Plan Assessment/Plan (1) Debility: PLAN: 1. Debility, functional decline-PT/OT. Initially planned for SNF placement however patient became aggressive and agitated 05/05/21, recent psychiatric admission. Psychiatric placement more appropriate at this time. 2. Anxiety/depression, unclear additional psychiatric history? With significant agitation and aggression towards staff 05/05-continue buspirone, escitalopram. Records requested from psychiatric facility patient was admitted to approximately 1 month prior. Crisis evaluated patient, awaiting placement. Metabolic/infectious etiology of behavior ruled out. UA and chest x-ray unremarkable. 3. Type 2 diabetes [id number] with sliding scale insulin. Continue home insulin regimen. 4. Hypertension- Increase carvedilol to 25 mg twice daily and lisinopril 20 mg twice daily. 5. Hyperlipidemia-continue statin. 6. Seizure disorder-on phenobarbital, Topamax, Lamictal. 7. GERD- Continue PPI. DVT prophylaxis-Lovenox subcu Discharge planning: Awaiting psychiatric placement. This patient was seen by MELLO Stack under the supervision of Dr. Sutton. Documented by User: Dr. Twan Sutton MD 05/06/21 12:21 Objective Data Lab / Micro Data Result Diagrams: 04/29/21 13:07 04/29/21 13:07 Assessment & Plan Addt[facility]l [facility] [id number] [place] [address] Progress Note - Tgwtqxfxrjm20/24/21 1318MR#: [id number]:[id number]:Jere JAQUEZ #[id number]: [id number]: Megan Shaffer NP EARLY CHILDHOOD AIDE CLASSROOM-CPCP:[place], [place] Status:ADM INOLocation: [id number] Documented by User: Megan Shaffer NP, EARLY CHILDHOOD AIDE CLASSROOM-C 05/05/21 13:32 Subjective Subjective Patient seen and examined. Currently resting comfortably in bed, in four-point soft restraints due to earlier significant agitation and aggression towards staff. Per nursing report patient not following commands and yelling and attempting to hit and kick staff. Patient reported to scream out that staff is kidnapping her. Patient was required to be placed in soft restraints for patient and staff safety. Sitter at bedside. Crisis consult placed. Objective Data Objective Data Vital Signs: Vital Signs Temp Pulse Resp BP Pulse Ox 97.6 F L 76 18 154/65 H 94 05/05/21 11:15 05/05/21 11:15 05/05/21 11:15 05/05/21 11:15 05/05/21 11:15 Oxygen Delivery Method Room Air Weight: 240 lb 11.916 oz Body Mass Index (BMI) 41.3 Intake & Output:Intake and Output for Last 24 Hours 05/03/21 05/04/21 05/05/21 23:59 23:59 23:59 Intake Total 300 / 520 860 / 1160 720 / 720 Output Total 1800 / 2250 650 / 650 Balance 300 / 520 -940 / -1090 70 / 70 Lab / Micro Data Result Diagrams: 04/29/21 13:07 document embedded image 04/29/21 13:07 document embedded image Labs:Laboratory Results - last 24 hr 05/04/21 16:31: POC Glucose 213 H 05/04/21 21:14: POC Glucose 246 H 05/05/21 06:28: POC Glucose 190 H 05/05/21 11:57: POC Glucose 265 H Physical Exam Const alert and no apparent distress Orientation / Consciousness: awake HEENT normocephalic and moist oral mucous membranes Eyes PERRL, EOMs intact bilaterally and conjunctivae normal Neck no lymphadenopathy Resp normal respiratory effort and clear to auscultation bilaterally Cardio regular rate, regular rhythm and no murmurs Peripheral Pulses: pulses 2+ throughout GI normal to inspection, nondistended, normoactive bowel sounds, non-tender and non-distended Extremity normal to inspection Skin no rashes or lesions noted Lesions: no lesions Rashes: no rashes Trauma: no lacerations or abrasions Neuro CN's II-XII intact bilaterally, no focal motor deficits, no sensory deficits noted and deep tendon reflexes 2+ bilaterally Psych Psych Narrative: Previously agitated and aggressive, during assessment patient mental status improved. Assessment & Plan Assessment/Plan (1) Debility: PLAN: 1. Debility, functional decline-PT/OT. Initially planned for SNF placement however patient became aggressive and agitated, recent psychiatric admission. Crisis eval pending. 2. Anxiety/depression, unclear additional psychiatric history? With significant agitation and aggression towards staff-continue buspirone, escitalopram. Will request records from psychiatric facility patient was admitted to approximately 1 month prior. Crisis eval pending. Currently in soft restraints for patient and staff safety. We will continue to reevaluate need. 3. Type 2 diabetes [id number]-Rlkw-[id number] with sliding scale insulin. Continue home insulin regimen. 4. Hypertension-stable, continue lisinopril, carvedilol. 5. Hyperlipidemia-continue statin. 6. Seizure disorder-on phenobarbital, Topamax, Lamictal. 7. GERD- Continue PPI. DVT prophylaxis-Lovenox subcu Discharge planning: Crisis eval pending, possible psychiatric placement. This patient was seen by MELLO Stack under the supervision of Dr. Sutton. Documented by User: Dr. Twan Sutton MD 05/05/21 14:37 Objective Data Lab / Micro Data Result Diagrams: 04/29/21 13:07 document embedded image 04/29/21 13:07 document embedded image Assessment & Plan Addt'l Comments This patient was seen in conjunction with Megan Shaffer EARLY CHILDHOOD AIDE CLASSROOM-C. I have independently interviewed and examined the patient and reviewed pertinent historical, laboratory, and other data. Please refer to Megan Shaffer EARLY CHILDHOOD AIDE CLASSROOM-C note for details of this patient's presentation, findings, and recommendations. I have reviewed Megan Shaffer EARLY CHILDHOOD AIDE CLASSROOM-C note and concur with documented findings. In brief, patient is a 71-year-old lady admitted with progressive generalized weakness. Plan is for patient to be [facility] to a [facility] facility pending insurance precertification 05/03/2021; awaiting insurance precertification prior to transfer to penitentiary facility 05/04/2021; seen no change in condition. Still awaiting approval prior to transfer to penitentiary facility 05/05/2021; patient seen extremely agitated had to be placed in four-point restr aint. An order was also given for patient to receive 4 mg of IM Haldol as well as 1 mg of IV Ativan. As part of patient's management ordered checks x-ray as well as urinalysis to rule out infectious etiology of delirium.. Consult was placed to the crisis team. Patient will probably benefit from going to an inpatient psychiatric facility [phone]; patient seen back to baseline without any agitation compared to previous day. Do suspect patient to have bipolar disorder with fluctuating episodes of hypomania as well as depression Physical Examination: GENERAL: cooperative HEENT: Atraumatic; EYES; Anicteric, Normal Conjunctiva NECK; supple, normal thyroid, RESPIRATORY: Diminished to auscultation CARDIOVASCULAR: Regular S1 S2, GI: soft, normoactive bowel sounds, : No Renal angle tenderness; EXTREMITIES: No edema, no clubbing, MUSCULOSKELETAL: no muscle waisting NEURO: Awake; no lateralizing signs. SKIN: No Rash PSYCH; Flat affect Assessment: 1. Physical deconditioning 2. Diabetes mellitus type 2 3. Depression 4. Anxiety disorder 5. Seizure disorder 6. Essential hypertension 7. DVT prophylaxis 8. Acute delirium 9. Suspected bipolar disorder Recommendations: 1. I have discussed the results of my overview and impressions with the patient 2. Options for management were reviewed Charges/Coding Visit Charges Inpatient E&M: 73399 Subs Hosp L2
--- NOTE | 2021-05-06 13:07 | CASEMGMT ---
SW Note Referral Source : RN CM Referral Reason: Discharge Planning SW called Crisis and spoke to answering service requesting call back from Hazardous Substances Engineer. BRANDI received phone call from Rosa Simmons. Rosa stated that [facility] and [facility]. Rosa stated that she has received COVID screen from [facility] and [facility] the [facility]. Rosa will continue to update this commercial insurance underwriter. BRANDI updated RN CM Plan: Inpatient psych Lucy DE LEON
[2021-05-06 13:26] LABS: Bedside Glucose 88 mg/dL (70-110)
[2021-05-06] MEDS: Insulin Lispro 100 UNIT/ML INSULN.PEN SC ×2 (16:28→21:39)
[2021-05-06] MEDS: Acetaminophen 325 MG Tablet 650 MG PO ×2 (16:31→22:27)
[2021-05-06 16:56] LABS: Bedside Glucose 319 mg/dL (70-110)
--- NOTE | 2021-05-06 17:22 | CM.ED ---
Addendum entered by Lucy Dodd 05/06/21 23:24: QUE received call from Nicky at [facility]. They have beds but she has no psych assessment. QUE stated that Rosa was going to fax it but this conventional mortgage underwriter will follow up. Nicky said that they will need documentation that says that [place] is unable to provide services for the patient for their purposes. QUE called call center manager and requested that patient's assessment be sent to the [facility]. QUE offered to fax the assessment if it could be faxed here. Que received message from [facility] that they have faxed assessment. QUE called transfer center at [place] at [phone] No answer SW called Sherron Mcdermott RN at [facility] [phone] x [phone]. No answer. QUE called number that ED had for Transfer [phone] and it stated this was a noncurrent number for the [employer]. 11:30pm and this conventional mortgage underwriter has no update Lucy FOREMAN Original Note: QUE Note SW received phone call from Trang at [facility] inquiring about how patient is doing today and any update. Thoracice phone number is [phone] SW received call back from [facility] and she said that as patient was needing SNF they did not feel that they could provide her the appropriate level of care she needs as she uses an ambulator to ambulate. Trang said we can't meet her needs. Trang said we do not have the type of services she needs but are not declining her services. Trang directed to speak to her polymerization supervisor, Sherron. Sherron said that they are not declining services but are not able to provide the appropriate care needed. QUE said that this conventional mortgage underwriter can look for a geripsych and asked for the approval for looking for geripsych. Sherron said we don't give approval.. [facility] does. Sherron said that [place] is in contract with [facility]. Corinna said that their plan was to try to get her under medicine so she would be reassessed on Saturday. QUE debated that this is not the level of care that patient needs and not appropriate for her to sit in a hospital waiting for the care she needs. QUE advised this conventional mortgage underwriter will make a referral to [facility]. Sherron said that her call back is [phone] ext [phone] and to call and advise her or Thorice where patient is going. QUE called [facility] and made referral to [facility]. QUE called Rosa at the Crisis Center and updated her about the patient's status. She will follow up with placement. Plan: Inpatient psych Lucy DE LEON
[2021-05-06] MEDS: Atorvastatin Calcium 80 MG Tablet PO (21:16)
[2021-05-06] MEDS: Mirtazapine 15 MG Tablet PO (21:17)
[2021-05-06] MEDS: Lisinopril 20 MG Tablet PO (21:19)
[2021-05-06] MEDS: Carvedilol 25 MG Tablet PO (21:20)
[2021-05-06] MEDS: MELATONIN 3 MG TABLET PO (21:27)
[2021-05-06] MEDS: Insulin NPH Human 100 UNITS/ML PEN 50 UNITS SC (21:40)
[2021-05-06 22:05] LABS: Bedside Glucose 262 mg/dL (70-110)
[2021-05-07 03:40] VITALS: BP 143/62; PULSE 64; RESP 16; TEMP 36.6; O2SAT 95
--- NOTE | 2021-05-07 04:36 | NURSING ---
0714 This RN rec'd PC from Randle with crisis that pt has been accepted at [facility] on the condition she is pink slipped. Rec'd via fax a specific screening tool for COVID. Both the pink slip and screening tool will need to be faxed back to [facility] at: [phone]. Will report to [facility] JUNIOR Mohan
[2021-05-07] MEDS: LORazepam 0.5 MG Tablet PO ×2 (06:21→13:35)
[2021-05-07] MEDS: Phenobarbital 32.4 MG Tablet PO ×2 (06:21→13:35)
[2021-05-07 07:20] LABS: Bedside Glucose 89 mg/dL (70-110)
--- NOTE | 2021-05-07 09:08 | DS.PCM_ITS ---
Documented by User: Megan Shaffer NP, UNISHEAR OPERATOR-C 05/07/21 09:20 Providers Date of Admission: 04/26/21 Date of Discharge: 05/07/21 Primary Care Physician: [facility] Reason For Visit: DEBILITY Diagnosis Discharge Diagnosis (1) Debility: Status: Acute Code(s): R53.81 - Other malaise Medications at Discharge Home Medications omeprazole 20 mg PO BID 12/19/13 topiramate 50 mg PO BID 12/19/13 albuterol sulfate 2.5 mg INHALATION Q4H PRN PRN 05/09/14 lamotrigine 300 mg PO BID 07/22/20 aspirin 81 mg PO DAILY@0800 #30 tab.chew 11/30/20 atorvastatin 80 mg PO QHS #30 tablet 12/02/20 cetirizine 10 mg PO DAILY PRN PRN 01/21/21 cholecalciferol (vitamin D3) 2,000 mcg PO DAILY 01/21/21 fluticasone propionate 1 spray INTRANASAL DAILY PRN 01/21/21 docusate sodium 100 mg PO BID 02/11/21 Humulin N NPH Insulin KwikPen 40 unit SUBCUT BREAKFAST 02/23/21 Humulin N NPH Insulin KwikPen 50 unit SUBCUT QHS 02/23/21 phenobarbital 32.4 mg PO TID@0100,0900,1700 02/23/21 escitalopram oxalate 10 mg PO DAILY 03/25/21 mirtazapine 15 mg PO QHS 03/25/21 buspirone 5 mg PO 0900 04/27/21 buspirone 5 mg PO QHS PRN PRN 04/27/21 buspirone 10 mg PO 1500 04/27/21 clopidogrel 75 mg PO DAILY 04/27/21 carvedilol 25 mg PO BID #0 tab 05/07/21 lisinopril 20 mg PO BID #0 tab 05/07/21 Hospital Course Operations None Procedures None Summary of Care Provided Minutes Spent on Discharge: 35 Hospital Course: Patient is a 71-year-old female admitted 04/26/2021 due to debility. 1. Anxiety/depression, unclear additional psychiatric history? Probable bipolar disorder. With significant agitation and aggression towards staff 05/05- continue buspirone, escitalopram. Transferred to psychiatric facility approximately 1 month prior. Metabolic/infectious etiology of behavior ruled out. UA and chest x-ray unremarkable. Discharged to inpatient psychiatric facility for further management. 2. Debility, functional decline-PT/OT. Initially planned for SNF placement however patient became aggressive and agitated 05/05/21, recent psychiatric admission. Psychiatric placement more appropriate at this time. 3. Type 2 diabetes [id number] with sliding scale insulin. Continue home insulin regimen. 4. Hypertension- Increase carvedilol to 25 mg twice daily and lisinopril 20 mg twice daily. 5. Hyperlipidemia-continue statin. 6. Seizure disorder-on phenobarbital, Topamax, Lamictal. 7. GERD- Continue PPI. 8. History of CVA-on aspirin, statin. Physical Exam Const alert, oriented x3 and no apparent distress Orientation / Consciousness: awake, oriented to person, oriented to place and oriented to time HEENT normocephalic and moist oral mucous membranes Eyes PERRL, EOMs intact bilaterally and conjunctivae normal Neck no lymphadenopathy Resp normal respiratory effort and clear to auscultation bilaterally Cardio regular rate, regular rhythm and no murmurs Peripheral Pulses: pulses 2+ throughout GI normal to inspection, nondistended, normoactive bowel sounds, non-tender and non-distended Extremity normal to inspection Skin no rashes or lesions noted Lesions: no lesions Rashes: no rashes Trauma: no lacerations or abrasions Neuro CN's II-XII intact bilaterally, no focal motor deficits, no sensory deficits noted and deep tendon reflexes 2+ bilaterally Psych mental status grossly normal and affect normal Patient seen and examined prior to discharge. Physical assessment as noted above. Discharge to inpatient psychiatric facility for further management. This patient was seen by MELLO Stack under the supervision of Dr. Sutton. Weight / BMI Weight Weight: 240 lb 11.916 oz Body Mass Index (BMI) 41.3 ABG / Lab / Microbiology Data Result Diagrams: 04/29/21 13:07 04/29/21 13:07 Laboratory: Laboratory Results - last 24 hr 05/06/21 08:14: POC Glucose 88 05/06/21 11:17: POC Glucose 146 H 05/06/21 16:27: POC Glucose 319 H 05/06/21 21:38: POC Glucose 262 H 05/07/21 07:10: POC Glucose 89 Meaningful Use Info Meaningful Use Diagnoses (Choose all that apply): None applicable Discharge Plan Admission Admit Date/Time: 04/26/21 20:43 Primary Reason for Your Visit: Anxiety/depression/bipolar disorder with behavioral disturbances Attending Provider: Twan Sutton Primary Care Provider: [facility] Discharge Orders/Prescriptions Prescriptions: New carvedilol 25 mg Tablet 25 mg PO BID Qty: 0 RF: 0 lisinopril 20 mg Tablet 20 mg PO BID Qty: 0 RF: 0 Continued omeprazole 20 MG capsule 20 mg PO BID RF: 0 topiramate 50 MG tablet 50 mg PO BID RF: 0 albuterol sulfate 2.5 MG/3 ML solution for nebulization 2.5 mg inhalation Q4H PRN PRN (Reason: Wheezing) RF: 0 lamotrigine 150 MG tablet 300 mg PO BID RF: 0 aspirin 81 MG tablet,chewable 81 mg PO DAILY@0800 Qty: 30 RF: 2 atorvastatin 80 MG tablet 80 mg PO QHS Qty: 30 RF: 2 cetirizine 10 mg Tablet 10 mg PO DAILY PRN PRN (Reason: Allergic Symptoms) RF: 0 fluticasone propionate 50 mcg/actuation [place],Suspension 1 spray INTRANASAL DAILY PRN (Reason: Allergy Symptoms) RF: 0 cholecalciferol (vitamin D3) 50 mcg (2,000 unit) Tablet 2,000 mcg PO DAILY RF: 0 docusate sodium 50 mg Capsule 100 mg PO BID RF: 0 phenobarbital 32.4 mg Tablet 32.4 mg PO TID@0100,0900,1700 RF: 0 Humulin N NPH Insulin KwikPen 100 unit/mL (3 mL) Insulin Pen 50 unit SUBCUT QHS RF: 0 Humulin N NPH Insulin KwikPen 100 unit/mL (3 mL) insulin pen 40 unit subcut BREAKFAST RF: 0 mirtazapine 15 mg tablet 15 mg PO QHS RF: 0 escitalopram oxalate 10 mg tablet 10 mg PO DAILY RF: 0 buspirone 5 mg Tablet 5 mg PO 0900 RF: 0 buspirone 10 mg Tablet 10 mg PO 1500 RF: 0 buspirone 15 mg Tablet 5 mg PO QHS PRN PRN (Reason: Anxiety) RF: 0 clopidogrel 75 MG tablet 75 mg PO DAILY RF: 0 Discontinued lisinopril 10 MG tablet 10 mg PO BID Qty: 0 RF: 0 carvedilol 12.5 MG tablet 18.5 mg PO BID RF: 0 [facility] - Within 2 Weeks Disposition Disposition (needs filled in before D/C Order can be placed): Psychiatric Hospital or Unit Documented by User: Dr. Twan Sutton MD 05/07/21 11:22 Providers Date of Admission: 04/26/21 Reason For Visit: DEBILITY Medications at Discharge Home Medications omeprazole 20 mg PO BID 12/19/13 topiramate 50 mg PO BID 12/19/13 albuterol sulfate 2.5 mg INHALATION Q4H PRN PRN 05/09/14 lamotrigine 300 mg PO BID 07/22/20 aspirin 81 mg PO DAILY@0800 #30 tab.chew 11/30/20 atorvastatin 80 mg PO QHS #30 tablet 12/02/20 cetirizine 10 mg PO DAILY PRN PRN 01/21/21 cholecalciferol (vitamin D3) 2,000 mcg PO DAILY 01/21/21 fluticasone propionate 1 spray INTRANASAL DAILY PRN 01/21/21 docusate sodium 100 mg PO BID 02/11/21 Humulin N NPH Insulin KwikPen 40 unit SUBCUT BREAKFAST 02/23/21 Humulin N NPH Insulin KwikPen 50 unit SUBCUT QHS 02/23/21 phenobarbital 32.4 mg PO TID@0100,0900,1700 02/23/21 escitalopram oxalate 10 mg PO DAILY 03/25/21 mirtazapine 15 mg PO QHS 03/25/21 buspirone 5 mg PO 0900 04/27/21 buspirone 5 mg PO QHS PRN PRN 04/27/21 buspirone 10 mg PO 1500 04/27/21 clopidogrel 75 mg PO DAILY 04/27/21 carvedilol 25 mg PO BID #0 tab 05/07/21 lisinopril 20 mg PO BID #0 tab 05/07/21 Hospital Course Operations None Summary of Care Provided Hospital Course: This patient was seen in conjunction with Megan Shaffer UNISHEAR OPERATOR- C. I have independently interviewed and examined the patient and reviewed pertinent historical, laboratory, and other data. Please refer to Megan Shaffer UNISHEAR OPERATOR-C note for details of this patient's presentation, findings, and recommendations. I have reviewed Megan Shaffer UNISHEAR OPERATOR-C note and concur with documented findings. In brief, patient is a 71-year-old lady admitted with progressive generalized weakness. Plan is for patient to be transferred to a group home facility pending insurance precertification Assessment: 1. Physical deconditioning 2. Diabetes mellitus type 2 3. Depression 4. Anxiety disorder 5. Seizure disorder 6. Essential hypertension 7. DVT prophylaxis 8. Acute delirium 9. Suspected bipolar disorder Hospital course; as documented above ABG / Lab / Microbiology Data Result Diagrams: 04/29/21 13:07 04/29/21 13:07 Discharge Plan Admission Admit Date/Time: 04/26/21 20:43 Primary Reason for Your Visit: Anxiety/depression/bipolar disorder with behavioral disturbances Attending Provider: Twan Sutton [place] [facility] Discharge Orders/Prescriptions Prescriptions: New carvedilol 25 mg Tablet 25 mg PO BID Qty: 0 RF: 0 lisinopril 20 mg Tablet 20 mg PO BID Qty: 0 RF: 0 Continued omeprazole 20 MG capsule 20 mg PO BID RF: 0 topiramate 50 MG tablet 50 mg PO BID RF: 0 albuterol sulfate 2.5 MG/3 ML solution for nebulization 2.5 mg inhalation Q4H PRN PRN (Reason: Wheezing) RF: 0 lamotrigine 150 MG tablet 300 mg PO BID RF: 0 aspirin 81 MG tablet,chewable 81 mg PO DAILY@0800 Qty: 30 RF: 2 atorvastatin 80 MG tablet 80 mg PO QHS Qty: 30 RF: 2 cetirizine 10 mg Tablet 10 mg PO DAILY PRN PRN (Reason: Allergic Symptoms) RF: 0 fluticasone propionate 50 mcg/actuation [place],Suspension 1 spray INTRANASAL DAILY PRN (Reason: Allergy Symptoms) RF: 0 cholecalciferol (vitamin D3) 50 mcg (2,000 unit) Tablet 2,000 mcg PO DAILY RF: 0 docusate sodium 50 mg Capsule 100 mg PO BID RF: 0 phenobarbital 32.4 mg Tablet 32.4 mg PO TID@0100,0900,1700 RF: 0 Humulin N NPH Insulin KwikPen 100 unit/mL (3 mL) Insulin Pen 50 unit SUBCUT QHS RF: 0 Humulin N NPH Insulin KwikPen 100 unit/mL (3 mL) insulin pen 40 unit subcut BREAKFAST RF: 0 mirtazapine 15 mg tablet 15 mg PO QHS RF: 0 escitalopram oxalate 10 mg tablet 10 mg PO DAILY RF: 0 buspirone 5 mg Tablet 5 mg PO 0900 RF: 0 buspirone 10 mg Tablet 10 mg PO 1500 RF: 0 buspirone 15 mg Tablet 5 mg PO QHS PRN PRN (Reason: Anxiety) RF: 0 clopidogrel 75 MG tablet 75 mg PO DAILY RF: 0 Discontinued lisinopril 10 MG tablet 10 mg PO BID Qty: 0 RF: 0 carvedilol 12.5 MG tablet 18.5 mg PO BID RF: 0 Referrals / [facility] [[facility] - Within 2 Weeks Disposition Disposition (needs filled in before D/C Order can be placed): Psychiatric Hospital or Unit Charges/Coding Visit Charges Inpatient E&M: 97450 Disch Hosp Hospital Course Operations None
[2021-05-07 09:20] VITALS: BP 155/61; PULSE 66; RESP 14; TEMP 36.3; O2SAT 97
[2021-05-07] MEDS: Clopidogrel Bisulfate 75 MG Tablet PO (09:21)
[2021-05-07] MEDS: Enoxaparin 40 MG/0.4 ML Syringe SC (09:21)
[2021-05-07] MEDS: Aspirin 81 MG TAB.CHEW PO (09:21)
[2021-05-07] MEDS: Carvedilol 25 MG Tablet PO (09:21)
[2021-05-07] MEDS: Pantoprazole Sodium 20 MG Tablet PO (09:21)
[2021-05-07] MEDS: lamoTRIgine 150 MG Tablet 300 MG PO (09:21)
[2021-05-07] MEDS: Cholecalciferol (VIT D3) 25 MCG TABLET (1,000 UNITS) 50 MCG PO (09:21)
[2021-05-07] MEDS: Loratadine 10 MG Tablet PO (09:21)
[2021-05-07] MEDS: Escitalopram Oxalate 10 MG Tablet PO (09:21)
[2021-05-07] MEDS: Topiramate 50 MG Tablet PO (09:21)
[2021-05-07] MEDS: Lisinopril 20 MG Tablet PO (09:22)
--- NOTE | 2021-05-07 11:27 | NURSING ---
Received acceptance from [facility]. Dr Pena accepting. [address] [facility]. [phone]
[2021-05-07 11:31] LABS: Bedside Glucose 92 mg/dL (70-110)
--- NOTE | 2021-05-07 11:37 | NURSING ---
called report to Tiffani PACHECO at [facility]
[2021-05-07] MEDS: Acetaminophen 325 MG Tablet 650 MG PO (13:35)
[2021-05-07 14:00] VITALS: BP 149/60; PULSE 74; RESP 18; TEMP 37.3; O2SAT 98
[2021-05-07 15:26] LABS: Bedside Glucose 136 mg/dL (70-110)
--- NOTE | 2021-05-08 09:10 | CASEMGMT ---
BRANDI called [facility] and left a message inquiring what SW should do since the patient went to a Psych facility. BRANDI called [facility] and left a voice mail for Yanelis letting her know patient went to a psych unit. Marcia Encinas WIND TURBINE ERECTORJuan Ramon FOREMAN
--- NOTE | 2021-05-08 13:45 | CM.ED ---
BRANDI Note BRANDI received call from Armani from [facility] inquiring on the status of patient. Then SW was disconnected from [facility]. BRANDI then called [facility]U BRANDI and patient was discharged to [facility] on Saturday05/07/21. BRANDI called the number that Rubina had given as her contact number and extension on Saturday as [phone]. BRANDI received voice mail from Rubina identifying herself but then got cut off with no number. BRANDI called [employer] field pipe lines supervisor Sherron Mcdermott [phone] and left message that patient was sent to [facility] and that patient was placed with [facility] and any issues to contact them and left [facility] phone number. BRANDI spent approximately 45 minutes calling the call center back, speaking to rotary shear operator and continually being rerouted to various voice mails none of them being Armani. If MA has questions they can call back and follow up with this chief underwriter. Plan: BRANDI remains available if needed. Lucy Leahy
--- NOTE | 2021-05-08 15:54 | CASEMGMT ---
BRANDI spoke with [facility] and asked about the PASRR and PASS review results since patient went to a Psych unit instead of SNF. BRANDI was told to send this information to the Psych unit. They can use the PASS and review results if patient goes to a fci fro their unit. BRANDI called [facility] in [place] and asked to talk with the Raimann Machine Operator or mission planner. He/she was not available so BRANDI gave the nurse the information and faxed the information to [facility]. BRANDI also called Vance at the [facility] and left her a message letting her know patient went to [facility] in [place] instead of [facility]. Marcia Encinas RULING TECHNICIAN MANAGER TEST
== END 2021-05-07 16:06 ==
LOC: ED 20:59 → PCU 23:04
PROVIDERS: Emergency Medicine; Family Medicine; Internal Medicine; Nurse Practitioner Family; Admitting Provider Hospitalist; Emergency Provider Emergency Medicine; Visit Provider Internal Medicine
DX: R53.81 Other malaise (principal); J45.909 Unspecified asthma, uncomplicated; I10 Essential (primary) hypertension; E78.5 Hyperlipidemia, unspecified; E66.01 Morbid (severe) obesity due to excess calories; F31.9 Bipolar disorder, unspecified; R45.1 Restlessness and agitation; R53.1 Weakness; E11.9 Type 2 diabetes mellitus without complications; F41.9 Anxiety disorder, unspecified; M06.9 Rheumatoid arthritis, unspecified; G40.909 Epilepsy, unspecified, not intractable, without status epilepticus; G89.29 Other chronic pain; E11.65 Type 2 diabetes mellitus with hyperglycemia; K21.9 Gastro-esophageal reflux disease without esophagitis; Z79.899 Other long term (current) drug therapy; Z79.4 Long term (current) use of insulin; Z79.02 Long term (current) use of antithrombotics/antiplatelets; Z79.82 Long term (current) use of aspirin; Z68.41 Body mass index [BMI] 40.0-44.9, adult; Z86.73 Personal history of transient ischemic attack (TIA), and cerebral infarction without residual deficits
CPT/HCPCS: 36415; 70450; 71045; 80048; 80307; 81001; 82962; 84484; 85025; 87635; 93005; 96372; 96374; 96375; 96376; 97110; 97116; 97162; 97166; 97530; 97535; 97802; 99218; 99285; U0005; A4216; G0378; U0003